=== PATIENT | male | born 1975 | race Two or more races ===

== ENCOUNTER 2022-09-14 11:04 | Outpatient (REF) | payer MEDICAID, SELFPAY ==
[2022-09-14 15:31] LABS: Syphilis Screen Nonreactive (Nonreactive)
[2022-09-14 15:33] LABS: Alanine Aminotransferase 47 U/L (0-40); Albumin Level 4.3 g/dL (3.5-5.0); Alkaline Phosphatase 113 U/L (39-117); Anion Gap 11 (12-20); Aspartate Amino Transferase 47 U/L (5-37); Bilirubin Total 0.6 mg/dL (0.0-1.0); Blood Urea Nitrogen 21 mg/dL (9-16); Calcium 9.6 mg/dL (8.4-10.2); Carbon Dioxide 29 mmol/L (22-29); Chloride 102 mmol/L (96-108); Cholesterol 139 mg/dL; Estimated Glomerular Filt Rate > 60; Glucose Random 100 mg/dL (60-115); HDL Cholesterol 43 mg/dL; LDL Cholesterol Calculated 79 mg/dl; Potassium 3.6 mmol/L (3.3-5.1); Sodium 138 mmol/L (135-145); TSH reflex Free T4 1.51 uIU/mL (0.32-4.0); Triglycerides 85 mg/dL; Vitamin D 25-OH Total 40.9 ng/mL (>30)
[2022-09-15 13:43] LABS: HCV Log PCR 6.38 Log IU/mL (NOT DETECTED)
[2022-09-17 08:42] LABS: HIV AB/AG Nonreactive (Nonreactive); HIV Num 1 0.04 S/CO (0.00-0.99)
[2022-09-17 16:28] LABS: TS Negative Control Passed; TS Panel A 0; TS Panel B 0; TS Positive Control Passed; TSpotTB Negative (Negative)
[2022-09-18 13:39] LABS: Alpha Fetoprotein 2.6 ng/mL (<6.1)
== END 2022-09-14 11:05 | disposition home or self-care (01) ==
LOC: HO.HHCL 11:04
PROVIDERS: Visit Provider Internal Medicine
DX: Z11.4 Encounter for screening for human immunodeficiency virus [HIV] (principal); B18.2 Chronic viral hepatitis C; F11.20 Opioid dependence, uncomplicated; I10 Essential (primary) hypertension; K21.9 Gastro-esophageal reflux disease without esophagitis
CPT/HCPCS: 36415; 80053; 80061; 82105; 82306; 84443; 86481; 86735; 86762; 86765; 86780; 87389; 87522

== ENCOUNTER 2022-09-20 11:05 | Outpatient (REF) | payer MEDICAID, SELFPAY ==
[2022-09-20 13:34] LABS: MANUAL DIFF FLAG NO
[2022-09-20 13:54] LABS: Basophils Percent Auto 0.7 % (0-2); Eosinophils Absolute Auto 0.1 X10*3/uL (0.0-0.4); Eosinophils Percent Auto 1.1 % (0-4); Hematocrit 41.9 % (42.0-52.0); Hemoglobin 13.5 g/dl (14.0-18.0); Imm Gran Abs Auto 0.02 X10*3/uL (0.00-0.03); Imm Gran Pct Auto 0.3 % (0.0-0.4); Lymphocytes Absolute Auto 2.4 X10*3/uL (1.2-4.9); Lymphocytes Percent Auto 39.3 % (20-40); Mean Corpuscular HGB Conc 32.2 g/dl (31.0-36.0); Mean Corpuscular Hemoglobin 26.7 pg (27.0-33.0); Mean Corpuscular Volume 82.8 fL (80.0-98.0); Mean Platelet Volume 9.6 fL (9.4-12.4); Monocytes Absolute Auto 0.8 X10*3/uL (0.1-1.2); Monocytes Percent Auto 13.5 % (2-11); Neutrophils Absolute Auto 2.8 x10*3/uL (2.0-8.3); Neutrophils Percent Auto 45.1 % (45-73); Platelet Count 334 X10*3/uL (160-400); Red Blood Count 5.06 X10*6/uL (4.60-5.80); Red Cell Distribution Width 13.3 % (11.0-16.0); White Blood Count 6.1 X10*3/uL (4.8-10.8)
[2022-09-20 13:56] LABS: Prothrombin Time 11.9 SEC (11.1-13.3)
[2022-09-27 15:03] LABS: FIB-ALT 45 U/L (9-46); FIB-Alpha-2-Macroglobulin 345 mg/dL (106-279); FIB-Apolipoprotein A1 133 mg/dL (94-176); FIB-GGT 55 U/L (3-95); FIB-Haptoglobin 178 mg/dL (43-212); FIB-Total Bilirubin 0.5 mg/dL (0.2-1.2); Liver Fibrosis Stage F2; Nec Inflam Act Grade A1; Nec Inflam Act Score 0.31
== END 2022-09-20 11:06 | disposition home or self-care (01) ==
LOC: HO.HHCL 11:05
PROVIDERS: Visit Provider Internal Medicine
DX: B18.2 Chronic viral hepatitis C (principal)
CPT/HCPCS: 36415; 81596; 85025; 85610

== ENCOUNTER 2022-11-30 12:20 | Outpatient (REF) | payer MEDICAID, SELFPAY ==
[2022-11-30 14:51] LABS: Anion Gap 16 (12-20); Blood Urea Nitrogen 19 mg/dL (9-16); Calcium 9.8 mg/dL (8.4-10.2); Carbon Dioxide 25 mmol/L (22-29); Chloride 102 mmol/L (96-108); Estimated Glomerular Filt Rate > 60; Glucose Random 86 mg/dL (60-115); Potassium 4.4 mmol/L (3.3-5.1); Sodium 139 mmol/L (135-145)
== END 2022-11-30 12:21 | disposition home or self-care (01) ==
LOC: HO.HHCL 12:20
PROVIDERS: Visit Provider Internal Medicine
DX: I10 Essential (primary) hypertension (principal)
CPT/HCPCS: 36415; 80048

== ENCOUNTER 2023-04-12 08:49 | Outpatient (REF) | payer MEDICAID, SELFPAY ==
[2023-04-12 11:27] LABS: Alanine Aminotransferase 23 U/L (0-40); Albumin Level 4.3 g/dL (3.5-5.0); Alkaline Phosphatase 95 U/L (39-117); Aspartate Amino Transferase 27 U/L (5-37); Bilirubin Direct < 0.2 mg/dL (0.0-0.5); Bilirubin Total 0.2 mg/dL (0.0-1.0); Total Protein 7.9 g/dL (6.5-8.0)
[2023-04-15 16:04] LABS: HCV Log PCR <1.18 NOT DETECTED Log IU/mL (NOT DETECTED); HepC Viral Load <15 NOT DETECTED IU/mL (NOT DETECTED)
== END 2023-04-12 08:50 | disposition home or self-care (01) ==
LOC: HO.HHCL 08:49
PROVIDERS: Visit Provider Family Medicine
DX: B18.2 Chronic viral hepatitis C (principal)
CPT/HCPCS: 36415; 80076; 87522

== ENCOUNTER 2023-04-26 09:22 | Outpatient (REF) | payer MEDICAID, SELFPAY ==
[2023-04-26 12:04] LABS: Anion Gap 13 (12-20); Blood Urea Nitrogen 23 mg/dL (9-16); Calcium 9.6 mg/dL (8.4-10.2); Carbon Dioxide 29 mmol/L (22-29); Chloride 101 mmol/L (96-108); Estimated Glomerular Filt Rate > 60; Glucose Random 135 mg/dL (60-115); Potassium 4.1 mmol/L (3.3-5.1); Sodium 139 mmol/L (135-145)
[2023-04-26 12:23] LABS: TSH reflex Free T4 1.33 uIU/mL (0.32-4.0)
[2023-05-01 14:34] LABS: Testosterone, Free 76.3 pg/mL (35.0-155.0); Testosterone, Total 372 ng/dL (250-1100)
== END 2023-04-26 09:23 | disposition home or self-care (01) ==
LOC: HO.HHCL 09:22
PROVIDERS: Visit Provider Internal Medicine
DX: I10 Essential (primary) hypertension (principal); N52.9 Male erectile dysfunction, unspecified
CPT/HCPCS: 36415; 80048; 84402; 84403; 84443

== ENCOUNTER 2023-10-11 19:20 | Emergency (ER) | payer MEDICAID, SELFPAY ==
--- NOTE | 2023-10-11 | ECG_ITS ---
Test Reason : TACHYCARDIA Blood Pressure : / mmHG Vent. Rate : 113 BPM Atrial Rate : 113 BPM P-R Int : 180 ms QRS Dur : 094 ms QT Int : 328 ms P-R-T Axes : 043 -16 037 degrees QTc Int : 449 ms Sinus tachycardia Minimal voltage criteria for LVH, may be normal variant ( R in aVL ) Borderline ECG When compared with ECG of 14-APR-2019 15:44, Vent. rate has increased BY 63 BPM T wave inversion no longer evident in Inferior leads Referred By: Generic ED Physician Electronically Signed By:JOSESITO MACEDO
--- NOTE | ~2023-10-11 | XR_ITS ---
EXAMINATION: XR CHEST CLINICAL INFORMATION: Shortness of breath. COMPARISON: Chest radiograph dated 11/11/2014. TECHNIQUE: Frontal view of the chest was obtained. FINDINGS: The heart is normal in size. The lungs are clear. There is no pleural effusion or pneumothorax. No acute osseous abnormality. XR/XR chest 1V IMPRESSION: No acute cardiopulmonary disease.
[2023-10-11 19:24] VITALS: BP 158/78; PULSE 125
[2023-10-11 19:28] VITALS: BP 144/94; PULSE 125; RESP 18; TEMP 36.1; O2SAT 93; BMI 35.3
[2023-10-11] MEDS: Ibuprofen 600 MG TABLET PO (20:10)
--- NOTE | 2023-10-11 20:12 | ED_ITS ---
HPI - Overdose General Chief Complaint: Overdose Stated Complaint: OD on cocaine/fentanyl, 8mg narcan given Time Seen by Provider: 10/11/23 20:05 Source: patient, EMS, RN notes reviewed and old records reviewed Mode of arrival: EMS History of Present Illness ED Provider: Nikole Hylton PA-C HPI Narrative: 48 year old male with PMHx substance abuse presenting to the ED via EMS s/p accidental OD on fentanyl and cocaine. Admits to snorting fentanyl, 1 bag. Patient was found unresponsive on [employer] [place] by [employer], given 8 mg of Narcan with positive result. Patient states he relapsed, has been clean for 2 years. Denies suicidal ideations. Denies injury/trauma or fall, headache. Reports bilateral foot pain and SOB. MD complaint: accidental overdose Related Data Allergies Allergy/AdvReac Type Severity Reaction Status Date / Time No Known Allergies Allergy Unverified 10/11/23 19:30 [No Known Allergies*] Review of Systems Review of Systems: Constitutional: No Fever, No Chills,No Fatigue, No Malaise Cardiovascular: No Chest Pain, + SOB Respiratory: No Cough, No Sputum, No Dyspnea Gastrointestinal: + Nausea, No Vomiting, No Diarrhea, No Constipation, No Abdominal pain Genitourinary: No Dysuria, No Hematuria, No Flank Pain Musculoskeletal: +joint pain, No Myalgias, No Joint Swelling Skin: No Skin Lesions, No rash Neuro: No Weakness, No Headache Psych: No Anxiety/Panic, No Depression, No SI/HI/AH/VH, No Social Issues Yes all other systems are reviewed and are negative Constitutional: Constitutional: Reports as per [facility] Past Medical History Attestation statement: The following information was validated with the patient. Source: old records reviewed Social History Social History Smoked in Last 30 Days: No Use of substances other than those prescribed or required for medical reasons: Yes Substance Use Type: Crack/Cocaine and Other Substance Use Type Other:: fentanyl Advance Directives: No Advance Directives Information Provided: No Physical Exam Vital Signs: Vital Signs: Last Vital Signs Temp 97.0 F 10/11/23 19:28 Pulse 125 H 10/11/23 19:28 Resp 18 10/11/23 19:28 BP 144/94 H 10/11/23 19:28 Pulse Ox 93 10/11/23 19:28 O2 Del Method Room Air 10/11/23 19:28 BMI result Body Mass Index 35.3 Const: General: cooperative, healthy appearing and no acute distress Orientation/consciousness: patient oriented x3 Limitations: no limitations HEENT: Head: Yes normal to inspection and Yes atraumatic Ears: hearing grossly normal bilaterally General nose exam: Normal external nose present Face and sinus: Yes normal facial exam Eyes: General: appearance normal, both eyes and all related structures EOM: EOMs intact bilaterally Neck: Neck: Yes normal visual inspection and Yes no meningeal signs Resp: Effort & Inspection: normal respiratory effort, no respiratory distress and no stridor Auscultation: clear to auscultation bilaterally, no rales, no rhonchi and no wheezes Cardio: Rate: regular rate Heart sounds: S1 normal heart sound present and S2 normal heart sound present GI: Inspection: Yes normal to inspection Palpation (GI): Soft to palpation, nontender, no guarding and not rigid Skin: Rashes: no rashes Wounds: no wounds Neuro: General: patient oriented x3, tone normal, moves all extremities, no meningeal signs, no focal motor deficits and CN's II-XI intact bilaterally Cranial nerves: Yes CN's II-XII intact bilaterally Extrem: Other: b/l feet w/o deformity, no erythema/ecchymosis. NV intact General: Yes normal to inspection Psych: Thought content: suicidality and no homicidality Course Course Course Narrative: -2100-ED care transferred to [facility] pending tox screen, CXR, and observation Reevaluation(s) Reevaluation #1: Urine toxicology positive for fentanyl and cocaine. Chest x-ray no acute cardiopulmonary disease. Patient will be placed into observation to allow more time to be evaluated by recovery. Patient has been ambulatory around the department without difficulty. Feeling well. He is interested in detox/recovery. Time: 23:21 Medications Administered Discontinued Medications Generic Name Dose Route Start Last Admin Trade Name Freq PRN Reason Stop Dose Admin Ibuprofen 600 mg 10/11/23 19:51 10/11/23 20:10 Ibuprofen 600 Mg Tablet PO 10/11/23 19:52 600 mg ONCE ONE Administration Ondansetron HCl 4 mg 10/11/23 20:11 10/11/23 21:28 Ondansetron Odt 4 Mg Tab.Rapdis TRANSLINGU 10/11/23 20:12 4 mg ONCE ONE Administration Medical Decision Making Medical Decision Making MDM Narrative: 48 year old male with PMHx substance abuse presenting to the ED via EMS s/p acci dental OD on fentanyl and cocaine. On exam tachycardic, NAD, lethargic however awake/arousable, emesis bag in hand, no evidence of trauma. Bilateral foot exam benign. Concern for accidental overdose. Low suspicion for ICH. No evidence of infection. Low suspicion for pulmonary edema Plan: EKG, CXR, ERWIN, observe and re-evaluate for possible relapse/clinical sobriety, addiction medicine consult for SUDE Please refer to course for remaining clinical decision making, interpretation of labs/imaging results, and discussions with consultants and/or family members. Differential Diagnosis Differential Diagnoses: The differential diagnosis associated with the presentation includes As above Consult Healthcare Provider Management of the patient was discussed with: Behavioral Health Provider Lab Data [facility] Lab Attestation statement: I reviewed the patient's lab results. Labs: Lab Results 10/11/23 Range/Units 21:24 Urine Opiates Screen Not Detected (Not Detect) Ur Buprenorphine Scrn Not Detected (Not Detect) ng/mL Ur Oxycodone Screen Not Detected (Not Detect) ng/mL Urine Methadone Screen Not Detected (Not Detect) ng/mL Urine Fentanyl Screen POSITIVE H (Not Detect) Ur Barbiturates Screen Not Detected (Not Detect) Ur Phencyclidine Scrn Not Detected (Not Detect) Ur Amphetamines Screen Not Detected (Not Detect) U Benzodiazepines Scrn Not Detected (Not Detect) Urine Cocaine Screen POSITIVE H (Not Detect) U Marijuana (THC) Screen Not Detected (Not Detect) Independent Interpretation I performed an independent interpretation of an: EKG (My interpretation EKG sinus tachycardia rate of 113. W[place] interval 180. QTC 449. No STEMI) Radiology Impression Discussion of test interpretation with radiology: I have reviewed the radiologist's reading. Independent Historian Clinical information obtained from an independent historian. History obtained from or confirmed by: EMS External Record Review External record reviewed: Inpatient record, Office record, Outpatient record, Prior outpatient labs, Prior outpatient radiology, Primary care record and Outside ED record Tests considered The following testing was considered but not selected: As above Social Determinants Patient?s care significantly limited by Social Determinants of Health including: Low income and Alcoholism and drug addiction in family Discharge Plan Discharge Clinical Impression: Drug overdose Print Language: Grenadian
[2023-10-11] MEDS: Ondansetron ODT 4 MG TAB.RAPDIS TRANSLINGU (21:28)
[2023-10-11 21:40] LABS: Amphetamine Screen Urine Not Detected (Not Detect); Barbiturates, Urine Not Detected (Not Detect); Benzodiazepines Screen Urine Not Detected (Not Detect); Buprenorphine Scr Not Detected (Not Detect); Cannabinoid Screen Urine Not Detected (Not Detect); Cocaine Screen Urine POSITIVE (Not Detect); Fentanyl, urine POSITIVE (Not Detect); Methadone Screen, Urine Not Detected (Not Detect); Opiate Screen Urine Not Detected (Not Detect); Oxycodone Screen Urine Not Detected (Not Detect); Phencyclidine Screen Urine Not Detected (Not Detect)
--- NOTE | 2023-10-12 00:01 | PC.NURSE ---
Pt laying in stretcher with eyes closed, respirations even and unlabored without distress noted.
[2023-10-12 03:08] VITALS: BP 123/81; PULSE 91; RESP 17; O2SAT 100
[2023-10-12 06:49] VITALS: BP 122/77; PULSE 79; RESP 14; TEMP 36.2; O2SAT 98
--- NOTE | 2023-10-12 06:51 | MHC.EDTECH ---
belong[facility] in [place]
[2023-10-12] MEDS: Naloxone HCl Nasal TAKE HOME 4 MG SPRAY 8 MG NOSTRILALT (07:25)
[2023-10-12 07:28] VITALS: BP 122/77; PULSE 79; RESP 14; TEMP 36.2; O2SAT 98
== END 2023-10-12 07:29 | disposition home or self-care (01) ==
PROVIDERS: Physician Assistant; Emergency Provider Emergency Medicine
DX: T43.691A Poisoning by other psychostimulants, accidental (unintentional), initial encounter (principal); T40.5X1A Poisoning by cocaine, accidental (unintentional), initial encounter; R40.4 Transient alteration of awareness; Y92.811 Bus as the place of occurrence of the external cause; F19.10 Other psychoactive substance abuse, uncomplicated; R06.02 Shortness of breath; R00.0 Tachycardia, unspecified
CPT/HCPCS: 71045; 80307; 93005; 99285

== ENCOUNTER 2023-11-14 15:11 | Inpatient (IN) | payer MEDICAID, SELFPAY ==
--- NOTE | 2023-11-10 15:25 | ECG_ITS ---
Test Reason : CP Blood Pressure : / mmHG Vent. Rate : 153 BPM Atrial Rate : 153 BPM P-R Int : 126 ms QRS Dur : 078 ms QT Int : 250 ms P-R-T Axes : 117 -01 064 degrees QTc Int : 399 ms Sinus tachycardia Otherwise normal ECG When compared with ECG of 14-NOV-2023 15:18, Sinus rhythm has replaced Wide QRS tachycardia Referred By: Yobany Rider Electronically Signed By:JOSESITO MACEDO
[2023-11-14] VITALS (12 sets, daily range): BP systolic 110–142; BP diastolic 56–84; PULSE 94–160; RESP 14–46; TEMP 36.8–37.4; O2SAT 90–99; BMI 33.6; BMI 34.1
--- NOTE | 2023-11-14 | ECG_ITS ---
Test Reason : REPEAT EKG RAPID HEART BEAT Blood Pressure : / mmHG Vent. Rate : 104 BPM Atrial Rate : 104 BPM P-R Int : 184 ms QRS Dur : 096 ms QT Int : 342 ms P-R-T Axes : 060 -05 024 degrees QTc Int : 449 ms Sinus tachycardia Otherwise normal ECG When compared with ECG of 14-NOV-2023 15:25, Heart rate has decreased Referred By: Isauro Herrera Electronically Signed By:JOSESITO MACEDO
--- NOTE | ~2023-11-14 | XR_ITS ---
EXAMINATION: XR CHEST CLINICAL INFORMATION: Tachypnea and tachycardia. COMPARISON: Chest x-ray 10/11/2023 TECHNIQUE: Frontal view of the chest was obtained. FINDINGS: No significant abnormality is noted involving the heart, lungs, mediastinum, bony thorax or soft tissues. XR/XR chest 1V IMPRESSION: Unremarkable chest examination. Electronically signed by: Teja Molina MD 11/14/2023 08:54 PM EDT
--- NOTE | ~2023-11-14 | CT_ITS ---
EXAMINATION: CT HEAD WITHOUT CONTRAST CLINICAL INFORMATION: Fall. COMPARISON: Head CT report dated 11/11/2014. TECHNIQUE: Contiguous axial imaging was performed from the skullbase to vertex without intravenous administration of contrast. Limited study with motion artifacts. This CT examination was performed using dose optimization techniques as appropriate, variously including the following: *Automated exposure control *Adjustment of mA and/or kV according to patient size (this includes techniques or standardized protocols for targeted exams where dose is matched to indication/reason for exam; i.e. extremities or head) *Use of iterative reconstruction technique DLP: 1341 mGy-cm. FINDINGS: There is no evidence of acute intracranial hemorrhage or territorial infarction. No abnormal mass effect or midline shift is seen. [place] to white matter differentiation is well preserved. No extra-axial fluid collections are identified. The ventricles are normal in size. There is no abnormal attenuation within the brain parenchyma. The osseous structures and soft tissues are normal. The mastoid air cells are well aerated. Mild ethmoid sinus mucosal thickening noted. CT/CT head/brain wo IV con IMPRESSION: Limited study with motion artifacts. Otherwise, no acute intracranial hemorrhage or territorial infarction. Electronically signed by: Mike Jurado MD 11/14/2023 05:51 PM EDT
[2023-11-14] MEDS: 0.9 % Sodium Chloride 1,000 ML 999 ML IV ×2 (15:15→17:19)
--- NOTE | 2023-11-14 15:19 | ECG_ITS ---
Test Reason : tachy Blood Pressure : / mmHG Vent. Rate : 158 BPM Atrial Rate : 000 BPM P-R Int : 000 ms QRS Dur : 152 ms QT Int : 346 ms P-R-T Axes : 000 -24 108 degrees QTc Int : 561 ms Wide QRS tachycardia with occasional Premature ventricular complexes Left bundle branch block Abnormal ECG When compared with ECG of 11-OCT-2023 19:43, Wide QRS tachycardia has replaced Sinus rhythm Referred By: Saray Rojas Electronically Signed By:JOSESITO MACEDO
[2023-11-14] MEDS: Adenosine 6 MG/2 ML VIAL IVPUSH (15:26)
[2023-11-14] MEDS: Adenosine 6 MG/2 ML VIAL 12 MG IVPUSH (15:28)
[2023-11-14] MEDS: LORazepam 2 MG/ML VIAL IVPUSH ×2 (15:31→15:46)
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
[2023-11-14 15:36] LABS: Glucose, Whole Blood 207 mg/dL (60-115)
--- NOTE | 2023-11-14 15:48 | PC.NURSE ---
oxygen 2 LNC started at as oxygen was 90 s on room air. HR was 152 and with the 2LNC is was 91 percent.
[2023-11-14 15:49] LABS: MANUAL DIFF FLAG NO
[2023-11-14 15:55] LABS: Basophils Percent Auto 0.4 % (0-2); Eosinophils Percent Auto 0.4 % (0-4); Hematocrit 38.4 % (42.0-52.0); Hemoglobin 12.5 g/dl (14.0-18.0); Imm Gran Abs Auto 0.17 X10*3/uL (0.00-0.03); Imm Gran Pct Auto 2.5 % (0.0-0.4); Lymphocytes Absolute Auto 0.8 X10*3/uL (1.2-4.9); Lymphocytes Percent Auto 12.6 % (20-40); Mean Corpuscular HGB Conc 32.6 g/dl (31.0-36.0); Mean Corpuscular Hemoglobin 27.5 pg (27.0-33.0); Mean Corpuscular Volume 84.6 fL (80.0-98.0); Mean Platelet Volume 8.8 fL (9.4-12.4); Monocytes Absolute Auto 0.2 X10*3/uL (0.1-1.2); Monocytes Percent Auto 3.4 % (2-11); Neutrophils Absolute Auto 5.4 x10*3/uL (2.0-8.3); Neutrophils Percent Auto 80.7 % (45-73); Platelet Count 338 X10*3/uL (160-400); Red Blood Count 4.54 X10*6/uL (4.60-5.80); Red Cell Distribution Width 14.5 % (11.0-16.0); White Blood Count 6.7 X10*3/uL (4.8-10.8)
--- NOTE | 2023-11-14 16:08 | PC.NURSE ---
patient came in via ems awake/alert and speaking with staff, per ems [place] using excessive crack/cocaine, pt is denying si/hi. upon arrival pt hr ranged from 130-190s and looked to be in svt, providers were notified, IV started, ekg performed, vagal maneuvers were attempted x2, pads placed on patients chest, nc applied, IVF started per order and pt given 2 separate doses of adenosine. pt then given 2 separate doses of ativan. capnography applied- pt changed over from NC to 8L oxymask. pt sleeping but easily arousable. security notified and belongings were taken to [place]. charge was notified about pt being found on bridge due to crack use and but hes denying si/hi. pt continues to be tachy in 130s, BP wnl, call herrera within reach, will continue with plan of care.
[2023-11-14 16:15] LABS: B Type Natriuretic Peptide 29 pg/mL (<100)
[2023-11-14 16:18] LABS: Alanine Aminotransferase 27 U/L (0-40); Albumin Level 3.9 g/dL (3.5-5.0); Alkaline Phosphatase 90 U/L (39-117); Anion Gap 22 (12-20); Aspartate Amino Transferase 27 U/L (5-37); Bilirubin Total 0.2 mg/dL (0.0-1.0); Blood Urea Nitrogen 18 mg/dL (9-16); Calcium 9.7 mg/dL (8.4-10.2); Carbon Dioxide 15 mmol/L (22-29); Chloride 108 mmol/L (96-108); Creatinine Clr Calc Pharmacy 44.6; Estimated Glomerular Filt Rate 35; Glucose Random 211 mg/dL (60-115); Magnesium 3.9 mg/dL (1.6-2.6); Potassium 4.1 mmol/L (3.3-5.1); Sodium 141 mmol/L (135-145); Troponin-I High Sensitivity 36.2 ng/L (<3.5-35.0)
--- NOTE | 2023-11-14 17:22 | PC.NURSE ---
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
[2023-11-14 18:13] LABS: Appearance Urine Clear; Color Urine Yellow; Glucose Urine UA Negative (Negative); Leukocyte Esterase Urine Negative (Negative); Nitrite Urine Negative (Negative); PH 5.5 (5.0-9.0); Specific Gravity - Urine 1.015 (1.005-1.025); UMIC TRIGGER UACC YES; Urine Blood Small (1+) (Negative); Urine Ketones Negative (Negative); Urine Protein 100 (2+) mg/dL (Neg-Trace)
[2023-11-14 19:39] LABS: VBG Base Excess -2.1 mmol/L; VBG HCO3 22 mmol/L (22-26); VBG pCO2 38 mmHg; VBG pH 7.37 (7.32-7.43); VBG pO2 199 mmHg
[2023-11-14 19:41] LABS: Venous Blood Gas Refer to POC result
[2023-11-14 19:48] LABS: Troponin-I High Sensitivity 291.2 ng/L (<3.5-35.0)
--- NOTE | 2023-11-14 20:09 | PHA.MEDREC ---
Addendum entered by Neva Mas RPh 11/14/23 20:22: Reviewed by [facility] Original Note: Pharmacy Consult ? Medication Reconciliation Pharmacy has completed the medication reconciliation. Patient is not aware enough to be able to confirm his medication. I utilized pharmacy claims. The only meds I did not add were Nifedipine 30mg 1 tab daily that was filled 07/31/23 for 90 days and Loratidine 10mg 1 tab daily that was filled 08/01/23 for 90 days.
[2023-11-14 20:15] LABS: Bacteria Urine None Seen (None Seen); RBC Urine 0-2 /HPF (0-2); Squamous Epithelial Cell Urine 0-2 /HPF (0-2); WBC Urine 0-5 /HPF (0-5)
--- NOTE | 2023-11-14 20:51 | PC.NURSE ---
pt/inr drawn
[2023-11-14 21:03] LABS: Prothrombin Time 11.3 SEC (10.9-12.4)
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
[2023-11-14] MEDS: dilTIAZem HCL 50 MG/10 ML VIAL IVPUSH (21:07)
--- NOTE | 2023-11-14 21:08 | PC.NURSE ---
this nurse contacted hospitalist as pts hr was wnl about giving the cardizem, hospitalist wanted the patient to have the IV cardizem and changed the order for a lesser dose. pt was given the medication per new orders
[2023-11-14] MEDS: Heparin Sodium,Porcine/1/2NS 25,000 UNIT/250 ML IV.SOLN 10 UNIT IVCONT (21:11)
[2023-11-14 21:16] LABS: Amphetamine Screen Urine Not Detected (Not Detect); Barbiturates, Urine Not Detected (Not Detect); Benzodiazepines Screen Urine Not Detected (Not Detect); Buprenorphine Scr Not Detected (Not Detect); Cannabinoid Screen Urine Not Detected (Not Detect); Cocaine Screen Urine POSITIVE (Not Detect); Fentanyl, urine Not Detected (Not Detect); Methadone Screen, Urine Not Detected (Not Detect); Opiate Screen Urine Not Detected (Not Detect); Oxycodone Screen Urine Not Detected (Not Detect); Phencyclidine Screen Urine Not Detected (Not Detect)
[2023-11-14] MEDS: Lactated Ringers 1,000 ML 100 ML IVCONT (23:35)
--- NOTE | 2023-11-14 23:43 | PC.NURSE ---
Assumed care f pt at 2300, pt easily arousable, alert and oriented, fatigued, states feels like crap . Heparin running through IV L-AC, #20 IV placed in R-AC, LR started at 100ml/hr.
[2023-11-15] VITALS (9 sets, daily range): BP systolic 134–190; BP diastolic 67–110; PULSE 80–99; RESP 15–20; TEMP 36.5–37.4; O2SAT 96–100
[2023-11-15] MEDS: Flu Vacc TS2024-25(6mos up)/PF 0.5 ML SYRINGE IM (03:19)
[2023-11-15 03:49] LABS: PTT Heparin Drip 40.9 SEC (53-77.9)
[2023-11-15] MEDS: Heparin Sodium,Porcine 5,000 UNIT/ML VIAL 3600 UNIT IVPUSH (04:16)
[2023-11-15 06:52] LABS: Hematocrit 40.4 % (42.0-52.0); Mean Corpuscular HGB Conc 32.2 g/dl (31.0-36.0); Mean Corpuscular Hemoglobin 27.3 pg (27.0-33.0); Mean Corpuscular Volume 84.7 fL (80.0-98.0); Mean Platelet Volume 9.7 fL (9.4-12.4); Platelet Count 297 X10*3/uL (160-400); Red Blood Count 4.77 X10*6/uL (4.60-5.80); Red Cell Distribution Width 14.9 % (11.0-16.0); White Blood Count 10.2 X10*3/uL (4.8-10.8)
--- NOTE | 2023-11-15 07:00 | CA_ITS ---
Transthoracic Echocardiogram Patient (Last, First, Middle): Sudhir Morales, Gender: Male Date of : 1975 Age: 48 Procedure Date: 11/15/2023 Procedure Type: Transthoracic Echocardiogram [place] [facility] [place] Height: 162.56 cm Weight: 89.81 kg BSA: 1.95 m2 Heart Rate: bpm BP: 180 / 110 mmHg Neon Glass Bender: CHACE Peoples MD: Isauro YATES Launching Pad Mechanic: Karthikeyan Snell MD Symptoms: Cocaine-induced NSTEMI Study Quality: Adequate ECG Rhythm: Sinus Conclusions: - 1. Normal LV ejection fraction 55-60% 2. Cardiac valvular Doppler within normal limits Findings Procedure Information Contrast agent, definity, is being given per protocol without apparent complications. Left Ventricle Normal left ventricular size, thickness, and systolic function. The visually estimated ejection fraction is between 55-60%. Spectral Doppler is indicative of an impaired relaxation filling pattern. E/E prime ratio is between 8 and 15 consistent with indeterminate filling pressures. Right Ventricle Normal right ventricular cavity size and systolic function. Atria The left atrium is normal in size. Interatrial shunt cannot be excluded. The right atrium was not well visualized. Aortic Valve Normal aortic valve structure and function. There is no aortic valve stenosis. There is no aortic valve regurgitation. Mitral Valve Normal mitral valve structure and function. There is trace mitral valve regurgitation. There is no mitral valve stenosis. Pulmonic Valve The pulmonic valve is likely normal. Tricuspid Valve Normal tricuspid valve structure. There is trace tricuspid valve regurgitation. The right ventricular systolic pressure is normal. The right ventricular systolic pressure is 27 mmHg. Normal right atrial pressure. There is no evidence of pulmonary hypertension. Great Vessels The aorta was not well visualized. The pulmonary artery was not well visualized. Venous The inferior vena cava is normal in size. Pericardium/Pleural The pericardium was not well visualized. Prior Study Comparison No prior study available for comparison. Measurements 2D Linear Measurements IVSd: 1.00 0.6-0.9/0.6-1.0 cm LVIDd: 4.50 3.9-5.3/4.2-5.9 cm LVIDd Index: 2.31 2.4-3.2/2.2-3.1 cm/m2 LVIDs: 2.92 2.0-3.6 cm LVPWd: 1.15 0.7-1.1 cm Ao Root: 3.20 2.1-3.5 cm LA Diam: 3.80 2.7-3.8/3.0-4.0 cm LAIDs Index: 1.95 1.5-2.3 cm/m2 LV Mass: 211.07 67-162/88-224 g LV Mass Index: 108.24 43-95/49-115 g/m2 LVOT Diam: 2.10 3.0+(-)1.3 cm 2D Systolic Function EF 4C: 56.50 >55% Mitral Valve MV Pk E: 0.73 MV PK A: 0.84 MV Decel Time: 296.00 E/A: 0.90 E'Lateral: 8.59 E'Medial: 7.94 E/E' Med: 9.20 E/E' Lat: 8.50 PHT: 87.00 MVA PHT: 2.53 Decel [place] Mix: 2.46 Aortic Valve AoV Pk Edy: 1.90 AoV Mn Edy: 1.15 AoV VTI: 0.29 AoV Pk Grad: 14.00 Aov Mn Grad: 7.00 CARLOS Cont.VTI: 2.72 LVOT LVOT Pk Edy: 1.29 LVOT Mn Edy: 0.99 LVOT VTI: 0.23 LVOT Pk Grad: 7.00 LVOT Mn Grad: 4.00 LVOT Diam: 2.10 LVOT Area: 3.46 Diastolic Function MV Pk E: 0.73 MV Pk A: 0.84 E/A: 0.90 E'Medial: 7.94 E/E' Med: 9.20 E' Laterial: 8.59 E/E' Lat: 8.50 Right Ventricle TAPSE (mm): 31.00 TVS' Edy: 15.00 Tricuspid Valve TR Pk Edy: 2.45 TR Pk Grad: 24.00 RA Press: 3.00 RVSP: 27.00 Great Vessels Aorta Ao Root-2D: 3.20 2.0-3.7 cm Pulmonary Valve PV Pk Edy: 1.41 Peak PV Grad: 8.00 Updated in Other Vendor System with Status of Final Karthikeyan Snell MD electronically signed on 11/15/2023 11:15:21 AM with status of Final
[2023-11-15 07:03] LABS: Prothrombin Time 11.7 SEC (10.9-12.4)
[2023-11-15 07:14] LABS: Anion Gap 15 (12-20); Blood Urea Nitrogen 19 mg/dL (9-16); Calcium 8.7 mg/dL (8.4-10.2); Carbon Dioxide 23 mmol/L (22-29); Chloride 107 mmol/L (96-108); Estimated Glomerular Filt Rate 27; Glucose Random 102 mg/dL (60-115); Magnesium 3.2 mg/dL (1.6-2.6); Potassium 3.6 mmol/L (3.3-5.1); Sodium 141 mmol/L (135-145)
[2023-11-15] MEDS: amLODIPine Besylate 5 MG TABLET PO (08:12)
[2023-11-15] MEDS: 0.9 % Sodium Chloride 1,000 ML 125 ML IVCONT ×2 (08:12→16:24)
[2023-11-15 08:38] LABS: Cholesterol 122 mg/dL (<200); HDL Cholesterol 40 mg/dL (>40); LDL Cholesterol Calculated 67 mg/dL (<100); Triglycerides 75 mg/dL (<150)
[2023-11-15 09:06] LABS: Troponin-I High Sensitivity 206.3 ng/L (<3.5-35.0)
[2023-11-15 09:11] LABS: Thyroid Stimulating Hormone 0.51 uIU/mL (0.32-4.0)
[2023-11-15 10:44] LABS: PTT Heparin Drip 117.2 SEC (53-77.9)
[2023-11-15] MEDS: Calcium Carbonate 750 MG TAB.CHEW PO (11:09)
[2023-11-15] MEDS: Aspirin Enteric Coated 81 MG TABLET.DR PO (11:09)
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
--- NOTE | 2023-11-15 13:05 | MHC.CM.PN ---
Pt lives alone, is independent, he said his PCP is Lara Headley at [facility]. Pt concerned about letting his family know that he is here, he said they will call the film flat inspector if they can't find him. CM gave him the land line telephone that is in the room to call them. DCP: home, self care. CM to follow and assist with DC plan.
--- NOTE | 2023-11-15 13:31 | HO.PM.IMPN ---
Subjective Subjective Date of Service: 11/15/23 Interval History: Being followed for cocaine induced tachycardia, elevated troponin, KATHYA with an anion gap metabolic acidosis. patient denies chest pain, no shortness of breath, complaining of heartburn, denies nausea ,vomiting diarrhea, no headache or dizziness. Review of Systems All other system reviewed and are negative Physical Exam Vital Signs: Vital Signs: Last Vital Signs Temp 97.8 F 11/15/23 11:11 Pulse 81 11/15/23 11:11 Resp 18 11/15/23 11:11 BP 190/100 H 11/15/23 11:23 Pulse Ox 96 11/15/23 11:11 O2 Del Method Room Air 11/15/23 11:11 O2 Flow Rate 2 11/15/23 00:21 BMI result Body Mass Index 34.1 Const: Other: General resting comfortably in no acute distress. Neck supple no JVD. CVS regular rate rhythm, Respiratory lungs clear to auscultation, no respiratory distress, no wheeze, no rhonchi. Gastrointestinal abdomen soft, non tender, bowel sounds audible, no guarding , no rigidity. Extremities no edema. Neuro non focal Skin no rash Objective Data Active Medications Acetaminophen (Acetaminophen 325 Mg Tablet) 650 mg PO Q6H PRN PRN Reason: Pain, Mild (Pain Scale 1-3), fever or headache Aspirin (Aspirin Enteric Coated 81 Mg Tablet.) 81 mg PO DAILY [facility] Last Admin: 11/15/23 11:09 Dose: 81 mg Documented By: MAXWELL Benzonatate (Benzonatate 100 Mg Capsule) 100 mg PO TID PRN PRN Reason: Cough Calcium Carbonate (Calcium Carbonate 750 Mg Tab.Chew) 750 mg PO Q4H PRN PRN Reason: Heartburn Last Admin: 11/15/23 11:09 Dose: 750 mg Documented By: MAXWELL Sodium Chloride (Ns) 1,000 mls @ 125 mls/hr IVCONT .Q8H [facility] Last Admin: 11/15/23 08:12 Dose: 125 mls/hr Documented By: MAXWELL Lorazepam (Lorazepam 2 Mg/Ml Vial) 0.5 mg IVPUSH Q4H PRN PRN Reason: Restlessness Magnesium Hydroxide (Milk Of Magnesia 30 Ml Oral.Susp) 30 ml PO DAILY PRN PRN Reason: Constipation Melatonin (Melatonin 3 Mg Tablet) 6 mg PO BEDTIME PRN PRN Reason: Insomnia Omeprazole (Omeprazole 20 Mg Capsule.Dr) 20 mg PO DAILY@0630 [facility] Ondansetron HCl (Ondansetron Hcl 4 Mg/2 Ml Vial) 4 mg IVPUSH Q8H PRN PRN Reason: Nausea and Vomiting Sodium Chloride (0.9 % Sodium Chloride Flush 3 Ml Syringe) 3 ml IVFLUSH QSHIFT SHARIF Last Admin: 11/15/23 08:16 Dose: Not Given Documented By: MAXWELL Non-Admin Reason: IV Running Verapamil HCl (Verapamil Hcl 120 Mg Tablet) 120 mg PO BID [facility]; Protocol Verapamil HCl (Verapamil Hcl 120 Mg Tablet) 120 mg PO ONCE ONE; Protocol Stop: 11/15/23 13:31 Labs 11/15/23 06:30 11/15/23 06:30 Labs: Laboratory Results - last 24 hr 11/14/23 11/14/23 11/14/23 15:32 15:44 17:58 MCV 84.6 MCH 27.5 MCHC 32.6 RDW 14.5 Plt Count 338 MPV 8.8 L Immature Gran % (Auto) 2.5 H Neut % (Auto) 80.7 H Lymph % (Auto) 12.6 L [place] % (Auto) 3.4 Eos % (Auto) 0.4 Baso % (Auto) 0.4 Lymph # (Auto) 0.8 L [place] # (Auto) 0.2 Eos # (Auto) 0.0 Baso # (Auto) 0.0 Abs Immat Gran (auto) 0.17 H Absolute Neuts (auto) 5.4 Absolute Nucleated RBC 0.000 Nucleated RBC % (auto) 0.0 PT INR aPTT Heparin Protocol Hold Blue Top VBG pH VBG pCO2 VBG pO2 VBG HCO3 VBG O2 Saturation VBG Base Excess Anion Gap 22 H Estim Creat Clear Calc 44.6 Estimated GFR 35 POC Glucose 207 H Random Glucose 211 H Calcium 9.7 Magnesium 3.9 H* Total Bilirubin 0.2 AST 27 ALT 27 Alkaline Phosphatase 90 Total Creatine Kinase 270 H Troponin I High Sens 36.2 H B-Natriuretic Peptide 29 Total Protein 7.0 Albumin 3.9 Triglycerides Cholesterol LDL Cholesterol, Calc HDL Cholesterol TSH Urine Color Yellow Urine Appearance Clear Urine pH 5.5 Ur Specific [place] 1.015 Urine Protein 100 (2+) H Urine Glucose (UA) Negative Urine Ketones Negative Urine Blood Small (1+) H Urine Nitrite Negative Ur Leukocyte Esterase Negative Urine RBC 0-2 Urine WBC 0-5 Ur Squamous Epith Cells 0-2 Urine Bacteria None Seen Hyaline Casts 3-5 Urine Opiates Screen Not Detected Ur Buprenorphine Scrn Not Detected Ur Oxycodone Screen Not Detected Urine Methadone Screen Not Detected Urine Fentanyl Screen Not Detected Ur Barbiturates Screen Not Detected Ur Phencyclidine Scrn Not Detected Ur Amphetamines Screen Not Detected U Benzodiazepines Scrn Not Detected Urine Cocaine Screen POSITIVE H U Marijuana (THC) Screen Not Detected 11/14/23 11/14/23 11/14/23 19:03 19:34 20:49 MCV MCH MCHC RDW Plt Count MPV Immature Gran % (Auto) Neut % (Auto) Lymph % (Auto) [place] % (Auto) Eos % (Auto) Baso % (Auto) Lymph # (Auto) [place] # (Auto) Eos # (Auto) Baso # (Auto) Abs Immat Gran (auto) Absolute Neuts (auto) Absolute Nucleated RBC Nucleated RBC % (auto) PT 11.3 INR 1.0 aPTT Heparin Protocol 24.0 L Hold Blue Top VBG pH 7.37 VBG pCO2 38 VBG pO2 199 VBG HCO3 22 VBG O2 Saturation 100.0 VBG Base Excess -2.1 Anion Gap Estim Creat Clear Calc Estimated GFR POC Glucose Random Glucose Calcium Magnesium Total Bilirubin AST ALT Alkaline Phosphatase Total Creatine Kinase Troponin I High Sens 291.2 H* D B-Natriuretic Peptide Total Protein Albumin Triglycerides Cholesterol LDL Cholesterol, Calc HDL Cholesterol TSH Urine Color Urine Appearance Urine pH Ur Specific [place] Urine Protein Urine Glucose (UA) Urine Ketones Urine Blood Urine Nitrite Ur Leukocyte Esterase Urine RBC Urine WBC Ur Squamous Epith Cells Urine Bacteria Hyaline Casts Urine Opiates Screen Ur Buprenorphine Scrn Ur Oxycodone Screen Urine Methadone Screen Urine Fentanyl Screen Ur Barbiturates Screen Ur Phencyclidine Scrn Ur Amphetamines Screen U Benzodiazepines Scrn Urine Cocaine Screen U Marijuana (THC) Screen 11/15/23 11/15/23 11/15/23 03:20 06:30 08:00 MCV 84.7 MCH 27.3 MCHC 32.2 RDW 14.9 Plt Count 297 MPV 9.7 Immature Gran % (Auto) Neut % (Auto) Lymph % (Auto) [place] % (Auto) Eos % (Auto) Baso % (Auto) Lymph # (Auto) [place] # (Auto) Eos # (Auto) Baso # (Auto) Abs Immat Gran (auto) Absolute Neuts (auto) Absolute Nucleated RBC 0.000 Nucleated RBC % (auto) 0.0 PT 11.7 INR 1.0 aPTT Heparin Protocol 40.9 L D Hold Blue Top VBG pH VBG pCO2 VBG pO2 VBG HCO3 VBG O2 Saturation VBG Base Excess Anion Gap 15 Estim Creat Clear Calc 36.0 Estimated GFR 27 POC Glucose Random Glucose 102 Calcium 8.7 D Magnesium 3.2 H Total Bilirubin AST ALT Alkaline Phosphatase Total Creatine Kinase 1628 H Troponin I High Sens 206.3 H* B-Natriuretic Peptide Total Protein Albumin Triglycerides 75 Cholesterol 122 LDL Cholesterol, Calc 67 HDL Cholesterol 40 L TSH 0.51 Urine Color Urine Appearance Urine pH Ur Specific [place] Urine Protein Urine Glucose (UA) Urine Ketones Urine Blood Urine Nitrite Ur Leukocyte Esterase Urine RBC Urine WBC Ur Squamous Epith Cells Urine Bacteria Hyaline Casts Urine Opiates Screen Ur Buprenorphine Scrn Ur Oxycodone Screen Urine Methadone Screen Urine Fentanyl Screen Ur Barbiturates Screen Ur Phencyclidine Scrn Ur Amphetamines Screen U Benzodiazepines Scrn Urine Cocaine Screen U Marijuana (THC) Screen 11/15/23 11/15/23 10:09 11:38 MCV MCH MCHC RDW Plt Count MPV Immature Gran % (Auto) Neut % (Auto) Lymph % (Auto) [place] % (Auto) Eos % (Auto) Baso % (Auto) Lymph # (Auto) [place] # (Auto) Eos # (Auto) Baso # (Auto) Abs Immat Gran (auto) Absolute Neuts (auto) Absolute Nucleated RBC Nucleated RBC % (auto) PT INR aPTT Heparin Protocol 117.2 H* D Hold Blue Top SEE NOTE VBG pH VBG pCO2 VBG pO2 VBG HCO3 VBG O2 Saturation VBG Base Excess Anion Gap Estim Creat Clear Calc Estimated GFR POC Glucose Random Glucose Calcium Magnesium Total Bilirubin AST ALT Alkaline Phosphatase Total Creatine Kinase Troponin I High Sens B-Natriuretic Peptide Total Protein Albumin Triglycerides Cholesterol LDL Cholesterol, Calc HDL Cholesterol TSH Urine Color Urine Appearance Urine pH Ur Specific [place] Urine Protein Urine Glucose (UA) Urine Ketones Urine Blood Urine Nitrite Ur Leukocyte Esterase Urine RBC Urine WBC Ur Squamous Epith Cells Urine Bacteria Hyaline Casts Urine Opiates Screen Ur Buprenorphine Scrn Ur Oxycodone Screen Urine Methadone Screen Urine Fentanyl Screen Ur Barbiturates Screen Ur Phencyclidine Scrn Ur Amphetamines Screen U Benzodiazepines Scrn Urine Cocaine Screen U Marijuana (THC) Screen Assessment and Plan (1) Elevated troponin: Status: Acute (2) Tachycardia: Status: Acute (3) Hypermagnesemia: Status: Acute (4) KATHYA (acute kidney injury): Status: Acute (5) Cocaine intoxication: Status: Acute Plan 48-year-old male with a PMH significant for?polysubstance use disorder and GERD who presents to the ED by EMS for evaluation of tachycardia in the setting of cocaine intoxication. Pt will be admitted to the hospital for treatment and further evaluation of cocaine-induced KATHYA and NSTEMI. Elevated troponin demand ischemia likely due to cocaine toxicity causing vasoconstriction and tachycardia Initial troponin 36.2 with repeat with delta of 291.2 trended down to 206 EKG without significant ischemic changes Case discussed with Cardiology they recommend to DC IV heparin drip , started on verapamil 2 reduced myocardial oxygen demand, aspirin stable LDL does not require statin Echocardiogram showed no wall motion abnormality,EF 55-60% Acute Tachycardia In the setting of cocaine intoxication SVT heart rate in 150s on arrival to ED,s/p adenosine 6 mg and 12 mg IV, Ativan 2 mg IV x2 doses Heart rate remained stable KATHYA In the setting of cocaine intoxication Creatinine 1.05 on 04/26/2023, creatinine bumped from 2.05 to 2.5 this morning Continue IV fluids Follow BMP, if no improvement in creatinine will consult Nephrology. Elevated CPK Mildly elevated, continue IV fluids follow labs. Acute hypo magnesemia likely due to KATHYA follow magnesium. Hypertension As per patient has history of hypertension currently not on antihypertensive will start verapamil BP remains elevated will add hydralazine avoid Silvestre/Arb due to KATHYA Cocaine use disorder Addiction medicine consult GERD PPI Full Code DVT Prophylaxis: SubQ Lovenox Pt will require continued inpatient hospitalization for treatment of cocaine induced KATHYA and tachycardia, and close monitoring of labs and cardiac function. Quality Stroke Does the patient have a stroke diagnosis?: No VTE Prior VTE?: No VTE Risk Level:: Medical - moderate - high VTE Device Contraindication: Treatment Not Indicated VTE Drug Contraindication: N/A - Med Ordered
[2023-11-15] MEDS: VerapamiL HCL 120 MG TABLET PO ×2 (13:38→20:21)
[2023-11-15] MEDS: Omeprazole 20 MG CAPSULE.DR PO (13:38)
--- NOTE | 2023-11-15 15:45 | MHC.RECOVRN ---
Met with Patient at bedside, patient initially stated he was not interested in talking. Once I explained what resources I have available he stated that his daughter was on her way up to his room and she didnt know he used drugs . He acknowledged interest in receiving recovery services, but asked I come back another time. Will relay to weekend covering RN to check back in with patient.
[2023-11-15] MEDS: Melatonin 3 MG TABLET 6 MG PO (20:21)
[2023-11-16] MEDS: 0.9 % Sodium Chloride Flush 3 ML SYRINGE IVFLUSH ×2 (00:09→07:36)
[2023-11-16] MEDS: 0.9 % Sodium Chloride 1,000 ML 125 ML IVCONT ×2 (02:37→10:50)
[2023-11-16 03:23] VITALS: BP 155/88; PULSE 81; RESP 15; TEMP 37; O2SAT 96
[2023-11-16] MEDS: Omeprazole 20 MG CAPSULE.DR PO (05:55)
[2023-11-16 07:32] LABS: Hematocrit 40.2 % (42.0-52.0); Hemoglobin 12.7 g/dl (14.0-18.0); Mean Corpuscular HGB Conc 31.6 g/dl (31.0-36.0); Mean Corpuscular Hemoglobin 26.7 pg (27.0-33.0); Mean Corpuscular Volume 84.6 fL (80.0-98.0); Mean Platelet Volume 9.4 fL (9.4-12.4); Platelet Count 274 X10*3/uL (160-400); Red Blood Count 4.75 X10*6/uL (4.60-5.80); Red Cell Distribution Width 15.2 % (11.0-16.0); White Blood Count 9.1 X10*3/uL (4.8-10.8)
[2023-11-16] MEDS: ondansetron HCL 4 MG/2 ML VIAL IVPUSH (07:34)
[2023-11-16 07:49] LABS: Anion Gap 15 (12-20); Blood Urea Nitrogen 14 mg/dL (9-16); Calcium 8.6 mg/dL (8.4-10.2); Carbon Dioxide 21 mmol/L (22-29); Chloride 107 mmol/L (96-108); Estimated Glomerular Filt Rate 25; Glucose Random 108 mg/dL (60-115); Magnesium 2.4 mg/dL (1.6-2.6); Potassium 3.6 mmol/L (3.3-5.1); Sodium 139 mmol/L (135-145)
[2023-11-16 08:00] VITALS: BP 145/76; PULSE 90; RESP 20; TEMP 36.9; O2SAT 96
[2023-11-16 08:20] VITALS: BP 140/74
[2023-11-16] MEDS: Aspirin Enteric Coated 81 MG TABLET.DR PO (08:20)
[2023-11-16] MEDS: VerapamiL HCL 120 MG TABLET PO (08:20)
--- NOTE | 2023-11-16 11:18 | MHC.RECOVRN ---
Met with pt in 377 after consult placed to Addiction Medicine for cocaine use.? Pt had presented to the ED via EMS due to erratic behavior following injection of cocaine.??? Upon evaluation, pt admitted for treatment of cocaine induced KATHYA and NSTEMI requiring IVF heparin and monitoring of lab and cardiac function.?? Pt laying in bed, awake, alert and oriented.?? Pt reports cocaine use but does not see it as ?a problem?.?? He was given resources to outpatient services but did not think he ?needed them?.?? T/W focused on education of harm reduction with pt. And provided him with [facility] contact information for future use.?? .Pt denies any other questions or concerns for t/w.? Will F/U tomorrow to inquire on F/U questions and to gather a more thorough history if pt. Agreeable.?
[2023-11-16 11:45] VITALS: BP 139/88; PULSE 85; RESP 18; TEMP 36.7; O2SAT 98
--- NOTE | 2023-11-16 13:09 | HO.PM.IMPN ---
Subjective Subjective Date of Service: 11/16/23 Interval History: Being followed for cocaine induced KATHYA, rhabdomyolysis, elevated troponin and SVT Patient offers no acute complaints denies chest pain, no palpitations, no abdominal pain, no nausea, no vomiting or diarrhea, denies lightheadedness, no dizziness, no fevers, no chills, urinating greater than 2 L in 24 hours, urine clear, no other acute issues overnight. Review of Systems All other system reviewed and negative. Physical Exam Vital Signs: Vital Signs: Last Vital Signs Temp 98.0 F 11/16/23 11:45 Pulse 85 11/16/23 11:45 Resp 18 11/16/23 11:45 BP 139/88 11/16/23 11:45 Pulse Ox 98 11/16/23 11:45 O2 Del Method Room Air 11/16/23 11:45 O2 Flow Rate 2 11/15/23 00:21 BMI result Body Mass Index 34.1 Const: Other: General resting comfortably, in no acute distress. Neck supple no JVD. CVS regular rate rhythm, Respiratory lungs clear to auscultation, no respiratory distress, no wheeze, no rhonchi. Gastrointestinal abdomen soft, non tender, bowel sounds audible, no guarding , no rigidity. Extremities no edema. Neuro non focal Skin bilateral knee and upper extremity abrasions Objective Data Active Medications Acetaminophen (Acetaminophen 325 Mg Tablet) 650 mg PO Q6H PRN PRN Reason: Pain, Mild (Pain Scale 1-3), fever or headache Aspirin (Aspirin Enteric Coated 81 Mg Tablet.) 81 mg PO DAILY [facility] Last Admin: 11/16/23 08:20 Dose: 81 mg Documented By: RICHARD Benzonatate (Benzonatate 100 Mg Capsule) 100 mg PO TID PRN PRN Reason: Cough Calcium Carbonate (Calcium Carbonate 750 Mg Tab.Chew) 750 mg PO Q4H PRN PRN Reason: Heartburn Last Admin: 11/15/23 11:09 Dose: 750 mg Documented By: MAXWELL Sodium Chloride (Ns) 1,000 mls @ 125 mls/hr IVCONT .Q8H [facility] Last Admin: 11/16/23 10:50 Dose: 125 mls/hr Documented By: RICHARD Lorazepam (Lorazepam 2 Mg/Ml Vial) 0.5 mg IVPUSH Q4H PRN PRN Reason: Restlessness Magnesium Hydroxide (Milk Of Magnesia 30 Ml Oral.Susp) 30 ml PO DAILY PRN PRN Reason: Constipation Melatonin (Melatonin 3 Mg Tablet) 6 mg PO BEDTIME PRN PRN Reason: Insomnia Last Admin: 11/15/23 20:21 Dose: 6 mg Documented By: VALDEZ Omeprazole (Omeprazole 20 Mg Capsule.Dr) 20 mg PO DAILY@0630 [facility] Last Admin: 11/16/23 05:55 Dose: 20 mg Documented By: VALDEZ Ondansetron HCl (Ondansetron Hcl 4 Mg/2 Ml Vial) 4 mg IVPUSH Q8H PRN PRN Reason: Nausea and Vomiting Last Admin: 11/16/23 07:34 Dose: 4 mg Documented By: RICHARD Sodium Chloride (0.9 % Sodium Chloride Flush 3 Ml Syringe) [facility] Last Admin: 11/16/23 07:36 Dose: 3 ml Documented By: RICHARD Verapamil HCl (Verapamil Hcl 120 Mg Tablet) 120 mg PO BID [facility]; Protocol Last Admin: 11/16/23 08:20 Dose: 120 mg Documented By: RICHARD Labs 11/16/23 06:32 11/16/23 06:32 Labs: Laboratory Results - last 24 hr 11/16/23 06:32 MCV 84.6 MCH 26.7 L MCHC 31.6 RDW 15.2 Plt Count 274 MPV 9.4 Absolute Nucleated RBC 0.000 Nucleated RBC % (auto) 0.0 Anion Gap 15 Estim Creat Clear Calc 33.0 Estimated GFR 25 Random Glucose 108 Calcium 8.6 Magnesium 2.4 Total Creatine Kinase 717 H Assessment and Plan (1) Elevated troponin: Status: Acute (2) Tachycardia: Status: Acute (3) Hypermagnesemia: Status: Acute (4) KATHYA (acute kidney injury): Status: Acute (5) Cocaine intoxication: Status: Acute Plan 48-year-old male with a PMH significant for?polysubstance use disorder and GERD who presents to the ED by EMS for evaluation of tachycardia in the setting of cocaine intoxication. Pt will be admitted to the hospital for treatment and further evaluation of cocaine-induced KATHYA and NSTEMI. Elevated troponin demand ischemia likely due to cocaine toxicity causing vasoconstriction and tachycardia No chest pain, no shortness of breath Initial troponin 36.2 with repeat with delta of 291.2 trended down to 206 EKG without significant ischemic changes Case discussed with Cardiology they recommend no IV heparin , started on verapamil 120mg bid, and aspirin, stable LDL does not require statin Echocardiogram showed no wall motion abnormality,EF 55-60% Acute Tachycardia In the setting of cocaine intoxication SVT heart rate in 150s on arrival to ED,s/p adenosine 6 mg and 12 mg IV, Ativan 2 mg IV x2 doses Heart rate stable now KATHYA In the setting of cocaine intoxication likely ATN Creatinine 1.05 on 04/26/2023, creatinine bumped from 2.05 to 2.5 > 2.7 making urine,ivf Follow BMP, consult Nephrology. Elevated CPK CPK improved to 717 likely due to cocaine. Acute hypermagnesemia likely due to KATHYA , resolved. Hypertension As per patient has history of hypertension currently not on antihypertensive , blood pressure improved continue verapamil , will add hydralazine if noted to have elevated blood pressure, avoid Silvestre/Arb due to KATHYA Cocaine use disorder Addiction medicine consult As needed Ativan. GERD PPI Full Code DVT Prophylaxis: SubQ Lovenox Pt will require continued inpatient hospitalization for treatment of cocaine induced KATHYA and tachycardia, and close monitoring of labs and cardiac function. Quality Stroke Does the patient have a stroke diagnosis?: No VTE Prior VTE?: No VTE Risk Level:: Medical - moderate - high VTE Device Contraindication: Treatment Not Indicated VTE Drug Contraindication: N/A - Med Ordered
[2023-11-16] MEDS: LORazepam 2 MG/ML VIAL 0.5 MG IVPUSH (14:02)
[2023-11-16 16:00] VITALS: BP 135/86; PULSE 82; RESP 18; TEMP 36.8; O2SAT 98
--- NOTE | 2023-11-16 16:11 | PC.NURSE ---
at 13:[address] Brown about patient wanting to leave AMA via [employer]. Provided contact primary nurse via [employer] @13:34 about coming to bedside to talk with patient about discharging AMA. @ 13:44 Dr Brown at beside to explain concerns about patient leaving AMA. Patient inquired about medication to calm down. Provider and nurse Reviewed MAR at patient bedside and nurse able to give PRN Ativan. See medication MAR for documentation. Patient also inquired about getting glass from security. Dr. Brown was able to follow up with security and patient received glasses at bedside.
[2023-11-16] MEDS: 0.9 % Sodium Chloride 1,000 ML 80 ML IVCONT (17:47)
[2023-11-16 20:00] VITALS: BP 158/96; PULSE 85; RESP 18; TEMP 37; O2SAT 96
--- NOTE | 2023-11-16 21:08 | PM.EVENT ---
Event Note Date of Service: 11/16/23 Event Note: Notified by nursing around 21:00 that patient wanted to leave AMA. Patient seen and evaluated in his room where he is alert and oriented x4. Patient states that he feels great and no longer thinks he needs hospitalization. Also reports he needs to go home to go with his girlfriend to a restorationism retreat tomorrow. Discussed with patient we would recommend continued hospitalization due to worsening kidney function that has yet to respond to IVF, as well as continued cardiac monitoring for cocaine induced tachycardia and elevated troponins. Patient is aware of risks of leaving that could include kidney failure with need for emergent dialysis or electrolyte disturbances that could result in cardiac arrest. Despite this awareness patient elected to leave AMA. Time Spent With Patient Time: Total time managing care of this patient today ____ minutes.
--- NOTE | 2023-11-16 22:12 | PC.NURSE ---
Patient left AMMD Chavo and [employer]cking [employer] Worker notified. AMA form signed.
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
== END 2023-11-16 21:22 | disposition left against medical advice (07) | DRG 816 ==
LOC: HO.ED 19:53 → HO.EDOVER 19:58 → HO.IMC 23:35
PROVIDERS: Internal Medicine; Physician Assistant; Physician Assistant Medical; Admitting Provider Student in an Organized Health Care Education/Training Program; Emergency Provider Emergency Medicine; PCP Internal Medicine; Visit Provider Hospitalist
DX: T40.5X1A Poisoning by cocaine, accidental (unintentional), initial encounter (principal); M62.82 Rhabdomyolysis; I24.89 Other forms of acute ischemic heart disease; N17.9 Acute kidney failure, unspecified; I47.10 Supraventricular tachycardia, unspecified; E83.41 Hypermagnesemia; K21.9 Gastro-esophageal reflux disease without esophagitis; F14.929 Cocaine use, unspecified with intoxication, unspecified; D64.9 Anemia, unspecified; F19.90 Other psychoactive substance use, unspecified, uncomplicated; I44.7 Left bundle-branch block, unspecified; I10 Essential (primary) hypertension; Z23 Encounter for immunization; Z87.891 Personal history of nicotine dependence; Z79.899 Other long term (current) drug therapy
CPT/HCPCS: 36415; 70450; 71045; 80048; 80053; 80061; 80307; 81001; 81003; 82550; 82803; 82947; 83735; 83880; 84443; 84484; 85025; 85027; 85610; 85730; 90656; 93005; 93306; 99285; J0153; J1644; J1650; J2060; J2405; J7120; Q9957

== ENCOUNTER 2023-11-14 19:44 | Outpatient (BNV) | payer MEDICAID, SELFPAY | END 2023-11-15 07:00 | PROVIDERS: Admitting Provider Student in an Organized Health Care Education/Training Program; Emergency Provider Emergency Medicine; Visit Provider Internal Medicine Cardiovascular Disease | DX: I21.4 Non-ST elevation (NSTEMI) myocardial infarction (principal) | CPT/HCPCS: 93306 ==

== ENCOUNTER → 2023-11-14 19:44 | Outpatient (BNV) | payer MEDICAID, SELFPAY | PROVIDERS: Admitting Provider Student in an Organized Health Care Education/Training Program; Emergency Provider Emergency Medicine; Visit Provider Internal Medicine Cardiovascular Disease | DX: R00.0 Tachycardia, unspecified (principal); R79.89 Other specified abnormal findings of blood chemistry | CPT/HCPCS: 99222 ==

== ENCOUNTER → 2023-11-14 19:44 | Outpatient (BNV) | payer MEDICAID, SELFPAY | PROVIDERS: Admitting Provider Student in an Organized Health Care Education/Training Program; Emergency Provider Emergency Medicine; Visit Provider Hospitalist | DX: F14.929 Cocaine use, unspecified with intoxication, unspecified (principal); N17.9 Acute kidney failure, unspecified; I21.4 Non-ST elevation (NSTEMI) myocardial infarction; E83.41 Hypermagnesemia | CPT/HCPCS: 99223; 99233; 99239; 99499 ==

== ENCOUNTER 2023-11-25 09:50 | Outpatient (REF) | payer MEDICAID, SELFPAY ==
[2023-11-25 11:52] LABS: MANUAL DIFF FLAG NO
[2023-11-25 12:04] LABS: Basophils Absolute Auto 0.1 X10*3/uL (0.0-0.2); Basophils Percent Auto 1.4 % (0-2); Eosinophils Absolute Auto 0.1 X10*3/uL (0.0-0.4); Eosinophils Percent Auto 1.9 % (0-4); Hematocrit 40.8 % (42.0-52.0); Hemoglobin 12.9 g/dl (14.0-18.0); Imm Gran Abs Auto 0.03 X10*3/uL (0.00-0.03); Imm Gran Pct Auto 0.8 % (0.0-0.4); Lymphocytes Absolute Auto 0.9 X10*3/uL (1.2-4.9); Lymphocytes Percent Auto 23.2 % (20-40); Mean Corpuscular HGB Conc 31.6 g/dl (31.0-36.0); Mean Corpuscular Volume 85.5 fL (80.0-98.0); Mean Platelet Volume 9.6 fL (9.4-12.4); Monocytes Absolute Auto 0.7 X10*3/uL (0.1-1.2); Monocytes Percent Auto 18.4 % (2-11); Neutrophils Percent Auto 54.3 % (45-73); Platelet Count 427 X10*3/uL (160-400); Red Blood Count 4.77 X10*6/uL (4.60-5.80); Red Cell Distribution Width 14.7 % (11.0-16.0); White Blood Count 3.7 X10*3/uL (4.8-10.8)
[2023-11-25 12:28] LABS: B Type Natriuretic Peptide 24 pg/mL (<100)
[2023-11-25 12:36] LABS: Alanine Aminotransferase 71 U/L (0-40); Albumin Level 4.2 g/dL (3.5-5.0); Alkaline Phosphatase 103 U/L (39-117); Anion Gap 12 (12-20); Aspartate Amino Transferase 52 U/L (5-37); Bilirubin Total 0.3 mg/dL (0.0-1.0); Blood Urea Nitrogen 11 mg/dL (9-16); Calcium 9.7 mg/dL (8.4-10.2); Carbon Dioxide 29 mmol/L (22-29); Chloride 101 mmol/L (96-108); Estimated Glomerular Filt Rate > 60; Glucose Random 94 mg/dL (60-115); Potassium 3.5 mmol/L (3.3-5.1); Sodium 138 mmol/L (135-145); Total Protein 7.7 g/dL (6.5-8.0)
[2023-11-25 12:59] LABS: Vitamin D 25-OH Total 22.1 ng/mL (>30)
== END 2023-11-25 09:51 | disposition home or self-care (01) ==
LOC: HO.HHCL 09:50
PROVIDERS: Visit Provider Internal Medicine
DX: I21.4 Non-ST elevation (NSTEMI) myocardial infarction (principal); I10 Essential (primary) hypertension; R73.01 Impaired fasting glucose; N17.9 Acute kidney failure, unspecified
CPT/HCPCS: 36415; 80053; 82306; 83880; 84443; 85025

== ENCOUNTER 2023-12-01 20:36 | Emergency (ER) | payer MEDICAID, SELFPAY ==
--- NOTE | 2023-12-01 | ECG_ITS ---
Test Reason : KORY Blood Pressure : / mmHG Vent. Rate : 099 BPM Atrial Rate : 099 BPM P-R Int : 160 ms QRS Dur : 098 ms QT Int : 354 ms P-R-T Axes : 046 -21 024 degrees QTc Int : 454 ms Normal sinus rhythm Possible Left atrial enlargement Incomplete right bundle branch block Left ventricular hypertrophy ( R in aVL , Sergio product ) Abnormal ECG When compared with ECG of 14-NOV-2023 19:54, No significant change was found Referred By: Generic ED Physician Electronically Signed By:JOSESITO MACEDO
[2023-12-01 20:39] VITALS: BP 184/100; PULSE 118; O2SAT 94
[2023-12-01 20:52] VITALS: BP 157/98; PULSE 97; RESP 22; TEMP 36.9; O2SAT 98; BMI 31.9
[2023-12-01] MEDS: Doxycycline Monohydrate 100 MG CAPSULE PO (22:04)
[2023-12-01] MEDS: cephALEXin 500 MG CAPSULE PO (22:04)
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
== END 2023-12-01 23:40 | disposition home or self-care (01) ==
PROVIDERS: Emergency Provider Internal Medicine
DX: T40.1X1A Poisoning by heroin, accidental (unintentional), initial encounter (principal); R40.4 Transient alteration of awareness; L03.221 Cellulitis of neck; Y92.9 Unspecified place or not applicable; F14.10 Cocaine abuse, uncomplicated; Z87.891 Personal history of nicotine dependence; Z79.899 Other long term (current) drug therapy
CPT/HCPCS: 93005; 99283; 99284

== ENCOUNTER 2024-01-09 08:26 | Inpatient (IN) | payer OTHER, SELFPAY ==
[2024-01-09] VITALS (7 sets, daily range): BP systolic 119–178; BP diastolic 77–106; PULSE 70–82; RESP 16–20; TEMP 36.3–36.9; O2SAT 98–100; BMI 30.1
[2024-01-09 09:40] LABS: MANUAL DIFF FLAG NO
[2024-01-09 09:41] LABS: Basophils Percent Auto 0.7 % (0-2); Eosinophils Absolute Auto 0.2 X10*3/uL (0.0-0.4); Hematocrit 39.1 % (42.0-52.0); Hemoglobin 12.7 g/dl (14.0-18.0); Imm Gran Abs Auto 0.03 X10*3/uL (0.00-0.03); Imm Gran Pct Auto 0.5 % (0.0-0.4); Lymphocytes Absolute Auto 1.7 X10*3/uL (1.2-4.9); Lymphocytes Percent Auto 29.6 % (20-40); Mean Corpuscular HGB Conc 32.5 g/dl (31.0-36.0); Mean Corpuscular Hemoglobin 27.4 pg (27.0-33.0); Mean Corpuscular Volume 84.3 fL (80.0-98.0); Mean Platelet Volume 9.3 fL (9.4-12.4); Monocytes Absolute Auto 0.7 X10*3/uL (0.1-1.2); Monocytes Percent Auto 12.3 % (2-11); Neutrophils Absolute Auto 3.1 x10*3/uL (2.0-8.3); Neutrophils Percent Auto 53.9 % (45-73); Platelet Count 328 X10*3/uL (160-400); Red Blood Count 4.64 X10*6/uL (4.60-5.80); Red Cell Distribution Width 15.2 % (11.0-16.0); White Blood Count 5.7 X10*3/uL (4.8-10.8)
[2024-01-09 09:55] LABS: Amphetamine Screen Urine Not Detected (Not Detect); Barbiturates, Urine Not Detected (Not Detect); Benzodiazepines Screen Urine Not Detected (Not Detect); Buprenorphine Scr Not Detected (Not Detect); Cannabinoid Screen Urine Not Detected (Not Detect); Cocaine Screen Urine POSITIVE (Not Detect); Fentanyl, urine POSITIVE (Not Detect); Methadone Screen, Urine Not Detected (Not Detect); Opiate Screen Urine POSITIVE (Not Detect); Oxycodone Screen Urine Not Detected (Not Detect); Phencyclidine Screen Urine Not Detected (Not Detect)
[2024-01-09 09:57] LABS: Alanine Aminotransferase 71 U/L (0-40); Albumin Level 3.8 g/dL (3.5-5.0); Alkaline Phosphatase 102 U/L (39-117); Anion Gap 11 (12-20); Aspartate Amino Transferase 34 U/L (5-37); Bilirubin Total 0.2 mg/dL (0.0-1.0); Blood Urea Nitrogen 12 mg/dL (9-16); Calcium 8.8 mg/dL (8.4-10.2); Carbon Dioxide 29 mmol/L (22-29); Chloride 99 mmol/L (96-108); Creatinine Clr Calc Pharmacy 102.6; Estimated Glomerular Filt Rate > 60; Ethanol < 10 mg/dL; Glucose Random 112 mg/dL (60-115); Potassium 3.7 mmol/L (3.3-5.1); Sodium 135 mmol/L (135-145)
[2024-01-09 09:58] LABS: Acetaminophen LAB < 3 mcg/mL (<30); Salicylate < 5.0 mg/dL (15-30)
--- NOTE | 2024-01-09 10:58 | ECG_ITS ---
Test Reason : MEDICAL CLEARENCE Blood Pressure : / mmHG Vent. Rate : 078 BPM Atrial Rate : 078 BPM P-R Int : 152 ms QRS Dur : 096 ms QT Int : 376 ms P-R-T Axes : 065 -06 042 degrees QTc Int : 428 ms Normal sinus rhythm Normal ECG When compared with ECG of 01-DEC-2023 20:41, No significant change was found Referred By: Nan Franco Electronically Signed By:Lance Lopez
[2024-01-09 11:14] LABS: Appearance Urine Clear; Color Urine Yellow; Glucose Urine UA Negative (Negative); Leukocyte Esterase Urine Negative (Negative); Nitrite Urine Negative (Negative); PH 6.5 (5.0-9.0); Specific Gravity - Urine 1.015 (1.005-1.025); Urine Blood Negative (Negative); Urine Ketones Negative (Negative); Urine Protein Negative (Neg-Trace)
--- NOTE | 2024-01-09 12:25 | ED.PSYCH ---
HPI - Psych General Chief Complaint: Psychiatric Symptoms Stated Complaint: crisis Time Seen by Provider: 01/09/24 11:09 Source: patient Limitations: no limitations History of Present Illness ED Provider: Maddie rodrigues PA-C HPI Narrative: 48-year-old male with a history of hypertension, NSTEMI, polysubstance abuse , presents with SI. Patient verbalizes concerns of feeling ?hopeless?, however does not have a specific plan for self-harm. Patient has not been taking his prescribed medication for his hypertension. Related Data Home Medications ?Medication ?Instructions ?Recorded ?Confirmed cyclobenzaprine 10 mg tablet 10 mg PO BEDTIME 11/14/23 01/09/24 melatonin 5 mg tablet 10 mg PO BEDTIME 11/14/23 01/09/24 pantoprazole 20 mg tablet,delayed 20 mg PO DAILY@0630 11/14/23 01/09/24 release acetaminophen 500 mg tablet 500 mg PO Q6H PRN mild pain 01/09/24 01/09/24 clonidine HCl 0.1 mg tablet 0.1 mg PO BID 01/09/24 01/09/24 ibuprofen 400 mg tablet 400 - 800 mg PO Q8H PRN moderate 01/09/24 01/09/24 pain lisinopril 40 mg tablet 20 mg PO DAILY 01/09/24 01/09/24 Allergies Allergy/AdvReac Type Severity Reaction Status Date / Time No Known Allergies Allergy Verified 01/09/24 08:35 [No Known Allergies*] Review of Systems Review of Systems: Yes all other systems are reviewed and are negative Constitutional: Constitutional: Denies fatigue and Denies fever(s) Cardiovascular: Cardiovascular: Denies chest pain Gastrointestinal: Gastrointestinal: Denies nausea Psychiatric: Psychiatric: Reports hopelessness Endocrine: Endocrine: Denies fatigue [facility] Past Medical History Attestation statement: The following information was validated with the patient. Medical History Polysubstance use disorder Social History Social History Household Members: None Housing: Apartment Do you presently have visiting nurse or other home services: No Unable to assess alcohol history related to: Unknown Patient Tobacco Use Status: Former Tobacco user Use of substances other than those prescribed or required for medical reasons: Yes Substance Use Type: Heroin Advance Directives: No Advance Directives Information Provided: Yes service: No Physical Exam Vital Signs: Vital Signs: Last Vital Signs Temp 98.2 F 01/09/24 15:14 Pulse 82 01/09/24 15:14 Resp 16 01/09/24 15:14 BP 134/82 01/09/24 15:14 Pulse Ox 100 01/09/24 15:14 O2 Del Method Room Air 01/09/24 15:14 BMI result Body Mass Index 30.1 Const: Other: Alert Orientation/consciousness: patient oriented x3 Resp: Other: Nonlabored respiration Cardio: Other: Normal peripheral perfusion Skin: Other: Warm dry no rash Neuro: General: patient oriented x3, no focal motor deficits and CN's II-XI intact bilaterally Psych: Other: Calm cooperative Medications Administered Discontinued Medications Generic Name Dose Route Start Last Admin Trade Name Kiranq PRN Reason Stop Dose Admin Clonidine HCl 0.1 mg 01/09/24 12:25 01/09/24 12:49 Clonidine Hcl 0.1 Mg Tablet PO 01/09/24 12:26 0.1 mg ONCE ONE Administration Protocol Lisinopril 20 mg 01/09/24 12:25 01/09/24 12:49 Lisinopril 20 Mg Tablet PO 01/09/24 12:26 20 mg ONCE ONE Administration Protocol Methadone HCl 20 mg 01/09/24 12:45 01/09/24 12:49 Methadone Hcl 20 Mg/2 Ml Oral.Conc PO 01/09/24 12:46 20 mg ONCE ONE Administration Medical Decision Making Medical Decision Making MDM Narrative: 48-year-old male with a history of hypertension, NSTEMI, polysubstance abuse, presents with SI. Patient verbalizes concerns of feeling ?hopeless?, however does not have a specific plan for self-harm. Patient has not been taking his prescribed medication for his hypertension. Problem: Polysubstance abuse, hypertension History: Per patient I have considered the following differential diagnoses: SI, HI, decompensated psychiatric illness, drug/alcohol intoxication Plan: Screening labs including serum ethanol and drug screen are completed, a consult with the care team was already placed, the patient was already seen, the patient is a bed search. I am speaking to 1 of the addiction counselors, she is asking that we place an order for 20 mg of methadone to deter withdrawal symptoms. We will do so now. I am also ordering the patient's medication for his hypertension. Physician obs. and diet have been ordered. Blood pressure. I have independently reviewed the following tests: Labs: No leukocytosis, not anemic, no electrolyte abnormality, drug screen positive for opiates, fentanyl, cocaine, serum ethanol negative Lab Data 01/09/24 09:31 01/09/24 09:31 Labs: Lab Results 01/09/24 Range/Units 09:31 WBC 5.7 (4.8-10.8) X10*3/uL RBC 4.64 (4.60-5.80) X10*6/uL Hgb 12.7 L (14.0-18.0) g/dl Hct 39.1 L (42.0-52.0) % MCV 84.3 (80.0-98.0) fL MCH 27.4 (27.0-33.0) pg MCHC 32.5 (31.0-36.0) g/dl RDW 15.2 (11.0-16.0) % Plt Count 328 (160-400) X10*3/uL MPV 9.3 L (9.4-12.4) fL Immature Gran % (Auto) 0.5 H (0.0-0.4) % Neut % (Auto) 53.9 (45-73) % Lymph % (Auto) 29.6 (20-40) % [place] % (Auto) 12.3 H (2-11) % Eos % (Auto) 3.0 (0-4) % Baso % (Auto) 0.7 (0-2) % Lymph # (Auto) 1.7 (1.2-4.9) X10*3/uL [place] # (Auto) 0.7 (0.1-1.2) X10*3/uL Eos # (Auto) 0.2 (0.0-0.4) X10*3/uL Baso # (Auto) 0.0 (0.0-0.2) X10*3/uL Abs Immat Gran (auto) 0.03 (0.00-0.03) X10*3/uL Absolute Neuts (auto) 3.1 (2.0-8.3) x10*3/uL Absolute Nucleated RBC 0.000 (0.0-0.012) X10*3/uL Nucleated RBC % (auto) 0.0 (0.0-0.2) /100WBC Sodium 135 (135-145) mmol/L Potassium 3.7 (3.3-5.1) mmol/L Chloride 99 (96-108) mmol/L Carbon Dioxide 29 (22-29) mmol/L Anion Gap 11 L (12-20) BUN 12 (9-16) mg/dL Creatinine 0.80 (0.5-1.4) mg/dL Estim Creat Clear Calc 102.6 Estimated GFR > 60 Random Glucose 112 (60-115) mg/dL Calcium 8.8 D (8.4-10.2) mg/dL Total Bilirubin 0.2 (0.0-1.0) mg/dL AST 34 (5-37) U/L ALT 71 H (0-40) U/L Alkaline Phosphatase 102 (39-117) U/L Total Protein 7.0 (6.5-8.0) g/dL Albumin 3.8 (3.5-5.0) g/dL Urine Color Yellow Urine Appearance Clear Urine pH 6.5 (5.0-9.0) Ur Specific [place] 1.015 (1.005-1.025) Urine Protein Negative (Neg-Trace) mg/dL Urine Glucose (UA) Negative (Negative) mg/dL Urine Ketones Negative (Negative) mg/dL Urine Blood Negative (Negative) Urine Nitrite Negative (Negative) Ur Leukocyte Esterase Negative (Negative) Salicylates < 5.0 L (15-30) mg/dL Urine Opiates Screen POSITIVE H (Not Detect) Ur Buprenorphine Scrn Not Detected (Not Detect) ng/mL Ur Oxycodone Screen Not Detected (Not Detect) ng/mL Urine Methadone Screen Not Detected (Not Detect) ng/mL Urine Fentanyl Screen POSITIVE H (Not Detect) Acetaminophen < 3 (<30) mcg/mL Ur Barbiturates Screen Not Detected (Not Detect) Ur Phencyclidine Scrn Not Detected (Not Detect) Ur Amphetamines Screen Not Detected (Not Detect) U Benzodiazepines Scrn Not Detected (Not Detect) Urine Cocaine Screen POSITIVE H (Not Detect) U Marijuana (THC) Screen Not Detected (Not Detect) Ethyl Alcohol < 10 mg/dL Discharge Plan Discharge Clinical Impression: Polysubstance abuse, Suicidal ideation Patient Disposition: Still a Patient Prescriptions: No Action cyclobenzaprine 10 mg tablet 10 mg PO BEDTIME pantoprazole 20 mg tablet,delayed release (DR/EC) 20 mg PO DAILY@0630 melatonin 5 mg tablet 10 mg PO BEDTIME clonidine HCl 0.1 mg tablet 0.1 mg PO BID acetaminophen 500 mg tablet 500 mg PO Q6H PRN (Reason: mild pain) ibuprofen 400 mg tablet 400 - 800 mg PO Q8H PRN (Reason: moderate pain) lisinopril 40 mg tablet 20 mg PO DAILY Interventions: [place]-Suicide Risk Severity Scale Last Done: 01/09/24 10:15 Print Language: Lao
--- NOTE | 2024-01-09 12:36 | MHC.RECOVRN ---
Met with pt in [facility] to assess for opioid withdrawal. Pt had been assessed by CARE Team and is IPLOC. Pt laying in bed, awake, alert, easily engages in conversation. Pt reports using 2 bags heroin/fentanyl daily x approx 5 days; cocaine, IV, $20 daily x 1 month. Pt reports current withdrawal symptoms including piloerection, chills, diaphoresis. Pt reports he had been in recovery for a couple years prior to recurrence. Pt reports he had been on methadone, 150 mg, and tapered off sometime last year. Pt would like to utilize methadone while here to address withdrawal symptoms. Pt denies other questions or concerns for t/w. Discussed with Violeta Polanco APRN, and ED provider. Plan to administer 20 mg methadone.
[2024-01-09] MEDS: methADONE HCl 20 MG/2 ML ORAL.CONC PO (12:49)
[2024-01-09] MEDS: cloNIDine HCL 0.1 MG TABLET PO ×2 (12:49→21:24)
[2024-01-09] MEDS: lisinopriL 20 MG TABLET PO (12:49)
--- NOTE | 2024-01-09 14:28 | MHC.CARE ---
Patient evaluated by the CARE Team, disposition inpatient psychiatric treatment, Dr. Franco updated.
--- NOTE | 2024-01-09 15:15 | PC.NURSE ---
Assumed care of patient at 1445, patient appears to be in no apparent distress at this time. Pt is calm and cooperative, alert and oriented x4. Patient offers no complaints at this time. Continue plan of care for inpatient bedsearch
--- NOTE | 2024-01-09 17:50 | PC.ADMIT ---
Pt arrived on the unit at 1731 from [facility]. Pt signed CV with CAW. Skin check/ vitals done with two RNs per policy. No concerns noted. Admission assessment deferred until next shift.
[2024-01-09] MEDS: hydrOXYzine HCL 25 MG TABLET PO (17:58)
[2024-01-09] MEDS: Cyclobenzaprine HCl 10 MG TABLET PO (21:24)
[2024-01-10 08:00] VITALS: BP 116/67; PULSE 67; RESP 15; TEMP 36.3; O2SAT 100
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
[2024-01-10] MEDS: methADONE HCl 20 MG/2 ML ORAL.CONC PO (09:20)
[2024-01-10] MEDS: Flu Vacc TS2024-25(6mos up)/PF 0.5 ML SYRINGE IM (09:26)
[2024-01-10 09:29] VITALS: BP 116/67
[2024-01-10] MEDS: cloNIDine HCL 0.1 MG TABLET PO ×2 (09:29→20:22)
[2024-01-10] MEDS: Omeprazole 20 MG CAPSULE.DR PO (09:30)
[2024-01-10] MEDS: Folic Acid 1 MG TABLET PO (09:30)
[2024-01-10] MEDS: Thiamine HCL 100 MG TABLET PO (09:30)
[2024-01-10 09:31] VITALS: BP 116/67
[2024-01-10] MEDS: lisinopriL 20 MG TABLET PO (09:31)
[2024-01-10 10:34] LABS: Alanine Aminotransferase 60 U/L (0-40); Albumin Level 3.6 g/dL (3.5-5.0); Alkaline Phosphatase 84 U/L (39-117); Anion Gap 10 (12-20); Aspartate Amino Transferase 35 U/L (5-37); Bilirubin Total 0.3 mg/dL (0.0-1.0); Blood Urea Nitrogen 18 mg/dL (9-16); Calcium 8.8 mg/dL (8.4-10.2); Carbon Dioxide 30 mmol/L (22-29); Chloride 101 mmol/L (96-108); Cholesterol 126 mg/dL (<200); Creatinine Clr Calc Pharmacy 91.2; Estimated Glomerular Filt Rate > 60; Glucose Fasting 77 mg/dL (60-99); HDL Cholesterol 42 mg/dL (>40); LDL Cholesterol Calculated 57 mg/dL (<100); Potassium 3.9 mmol/L (3.3-5.1); Sodium 137 mmol/L (135-145); Total Protein 6.7 g/dL (6.5-8.0); Triglycerides 136 mg/dL (<150)
[2024-01-10 10:56] LABS: Estimated Average Glucose 103 mg/dL; Hemoglobin A1C 137.2554 umol/L; Hemoglobin A1c % 5.2 % (<6.0); Total Hemoglobin (HGBA1C) 4185.3027 umol/L
[2024-01-10 20:00] VITALS: BP 121/66; PULSE 99; RESP 16; TEMP 36.1; O2SAT 94
[2024-01-10] MEDS: Cyclobenzaprine HCl 10 MG TABLET PO (20:22)
[2024-01-10] MEDS: risperiDONE 0.5 MG TABLET PO (20:22)
[2024-01-10] MEDS: Melatonin 3 MG TABLET PO (20:22)
[2024-01-11] MEDS: methADONE HCl 20 MG/2 ML ORAL.CONC 15 MG PO (07:40)
[2024-01-11 08:00] VITALS: BP 109/64; PULSE 71; RESP 16; TEMP 36.4; O2SAT 100
[2024-01-11] MEDS: lisinopriL 20 MG TABLET PO (08:14)
[2024-01-11] MEDS: Thiamine HCL 100 MG TABLET PO (08:15)
[2024-01-11] MEDS: Folic Acid 1 MG TABLET PO (08:15)
[2024-01-11] MEDS: cloNIDine HCL 0.1 MG TABLET PO ×2 (08:15→21:00)
[2024-01-11] MEDS: Acetaminophen 325 MG TABLET 650 MG PO (08:15)
[2024-01-11] MEDS: Omeprazole 20 MG CAPSULE.DR PO (08:15)
[2024-01-11] MEDS: risperiDONE 0.5 MG TABLET PO ×2 (08:16→21:01)
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
--- NOTE | 2024-01-11 11:23 | P.EN_ITS ---
Event Note Date of Service: 01/11/24 Event Note: Patient is a 48-year-old male with a PMH significant for polysubstance use disorder, hx cocaine induced NSTEMI, GERD, and mood disorder who was admitted [facility] for feelings of hopelessness and vague SI. Hospitalist consult for discoloration on toes. Patient reports he noticed his toes started turning dark approximately 1-2 weeks ago. Has associated sharp, stabbing, and shooting pains in his feet and toes. Patient admits to continued cocaine use, injecting approximately half an ounce daily. Physical exam reveals discoloration of all toes primarily on anterior aspect. As pictured below. Lower extremities and feet warm and well-perfused, with pedal pulses 2+ and good capillary refill. Patient is able to move all toes independently. Plan: Discoloration likely secondary to cocaine-induced peripheral vasoconstriction/endothelial dysfunction. Given that extremities are warm, well- perfused, and with good capillary refill, no indication for imaging with arterial Doppler scan. Best course of treatment to prevent further damage is to refrain from cocaine use. For peripheal neuropathy can trial a low-dose course of gabapentin if not contraindicated by pt's psychiatric treatment. Time Spent With Patient Time: Total time managing care of this patient today ____ minutes.
[2024-01-11 19:54] VITALS: BP 119/58; PULSE 80; RESP 16; TEMP 36.9; O2SAT 98
[2024-01-11] MEDS: Cyclobenzaprine HCl 10 MG TABLET PO (21:00)
[2024-01-11] MEDS: Gabapentin 100 MG CAPSULE PO (21:01)
[2024-01-11] MEDS: Melatonin 3 MG TABLET PO (21:01)
[2024-01-12] MEDS: methADONE HCl 20 MG/2 ML ORAL.CONC 10 MG PO (07:28)
[2024-01-12 07:54] VITALS: BP 126/82; PULSE 83; RESP 16; TEMP 36.6; O2SAT 100
[2024-01-12] MEDS: Omeprazole 20 MG CAPSULE.DR PO (08:07)
[2024-01-12] MEDS: Thiamine HCL 100 MG TABLET PO (08:07)
[2024-01-12] MEDS: Gabapentin 100 MG CAPSULE PO ×2 (08:07→20:20)
[2024-01-12] MEDS: Folic Acid 1 MG TABLET PO (08:07)
[2024-01-12] MEDS: risperiDONE 0.5 MG TABLET PO ×2 (08:08→20:21)
[2024-01-12] MEDS: cloNIDine HCL 0.1 MG TABLET PO ×2 (08:08→20:20)
[2024-01-12] MEDS: lisinopriL 20 MG TABLET PO (08:13)
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
[2024-01-12 19:49] VITALS: BP 125/74; PULSE 92; RESP 14; TEMP 36.2; O2SAT 98
[2024-01-12] MEDS: Cyclobenzaprine HCl 10 MG TABLET PO (20:21)
[2024-01-12] MEDS: Melatonin 3 MG TABLET PO (20:21)
--- NOTE | 2024-01-12 22:53 | PC.NURSE ---
Pt signed a 3-Day notice today on 01/12/24. Wants to be discharged by .
[2024-01-13] MEDS: Omeprazole 20 MG CAPSULE.DR PO (06:59)
[2024-01-13] MEDS: methADONE HCl 20 MG/2 ML ORAL.CONC 5 MG PO (07:52)
[2024-01-13 08:00] VITALS: BP 126/88; PULSE 70; RESP 18; TEMP 36.3; O2SAT 100
[2024-01-13] MEDS: risperiDONE 0.5 MG TABLET PO (08:58)
[2024-01-13] MEDS: Thiamine HCL 100 MG TABLET PO (08:58)
[2024-01-13] MEDS: lisinopriL 20 MG TABLET PO (08:58)
[2024-01-13] MEDS: cloNIDine HCL 0.1 MG TABLET PO ×2 (08:58→20:53)
[2024-01-13] MEDS: Folic Acid 1 MG TABLET PO (08:58)
[2024-01-13] MEDS: Gabapentin 100 MG CAPSULE PO ×2 (08:58→20:53)
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
[2024-01-13 20:00] VITALS: BP 135/70; PULSE 76; RESP 16; TEMP 36.3; O2SAT 100
[2024-01-13] MEDS: Cyclobenzaprine HCl 10 MG TABLET PO (20:53)
[2024-01-13] MEDS: Melatonin 3 MG TABLET PO (20:53)
[2024-01-13] MEDS: risperiDONE 2 MG TABLET PO (20:53)
[2024-01-14 08:00] VITALS: BP 131/76; PULSE 83; RESP 16; TEMP 36.3; O2SAT 100
[2024-01-14] MEDS: Omeprazole 20 MG CAPSULE.DR PO (08:36)
[2024-01-14] MEDS: lisinopriL 20 MG TABLET PO (08:36)
[2024-01-14] MEDS: Thiamine HCL 100 MG TABLET PO (08:36)
[2024-01-14] MEDS: Folic Acid 1 MG TABLET PO (08:36)
[2024-01-14] MEDS: Gabapentin 100 MG CAPSULE PO ×2 (08:36→21:04)
[2024-01-14] MEDS: risperiDONE 1 MG TABLET PO (08:36)
[2024-01-14] MEDS: hydrOXYzine HCL 25 MG TABLET PO (13:02)
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
[2024-01-14 20:00] VITALS: BP 134/80; PULSE 103; TEMP 37.6; O2SAT 97
[2024-01-14 21:05] VITALS: BP 134/80
[2024-01-14] MEDS: Melatonin 3 MG TABLET PO (21:05)
[2024-01-14] MEDS: cloNIDine HCL 0.1 MG TABLET PO (21:05)
[2024-01-14] MEDS: Cyclobenzaprine HCl 10 MG TABLET PO (21:05)
[2024-01-14] MEDS: risperiDONE 2 MG TABLET PO (21:06)
[2024-01-15 07:47] VITALS: BP 157/83; PULSE 83; RESP 18; TEMP 36.4; O2SAT 100
[2024-01-15] MEDS: Folic Acid 1 MG TABLET PO (08:22)
[2024-01-15] MEDS: Thiamine HCL 100 MG TABLET PO (08:22)
[2024-01-15] MEDS: cloNIDine HCL 0.1 MG TABLET PO ×2 (08:22→20:33)
[2024-01-15] MEDS: Gabapentin 100 MG CAPSULE PO (08:22)
[2024-01-15] MEDS: Omeprazole 20 MG CAPSULE.DR PO (08:22)
[2024-01-15] MEDS: risperiDONE 1 MG TABLET PO (08:22)
[2024-01-15] MEDS: lisinopriL 20 MG TABLET PO (08:23)
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
[2024-01-15] MEDS: Gabapentin 100 MG CAPSULE 200 MG PO (13:02)
[2024-01-15 19:50] VITALS: BP 131/81; PULSE 78; RESP 16; TEMP 36.3; O2SAT 100
[2024-01-15] MEDS: risperiDONE 3 MG TABLET PO (20:32)
[2024-01-15] MEDS: Gabapentin 300 MG CAPSULE PO (20:32)
[2024-01-15] MEDS: Melatonin 3 MG TABLET PO (20:33)
[2024-01-15] MEDS: Cyclobenzaprine HCl 10 MG TABLET PO (20:33)
[2024-01-16 07:00] VITALS: BMI 31.7
[2024-01-16 08:10] VITALS: BP 126/85; PULSE 80; RESP 18; TEMP 36.6; O2SAT 100
[2024-01-16] MEDS: lisinopriL 20 MG TABLET PO (08:26)
[2024-01-16] MEDS: Gabapentin 300 MG CAPSULE PO ×2 (08:26→20:42)
[2024-01-16] MEDS: Omeprazole 20 MG CAPSULE.DR PO (08:26)
[2024-01-16] MEDS: cloNIDine HCL 0.1 MG TABLET PO (08:26)
[2024-01-16] MEDS: Thiamine HCL 100 MG TABLET PO (08:26)
[2024-01-16] MEDS: Folic Acid 1 MG TABLET PO (08:26)
--- NOTE | 2024-01-16 11:19 | MHC.RECOVSUP ---
pt filled out recovery agent referral form for [facility]. Form was sent to Nhan Boothe via Email. pt disclosed he previously attended [facility] at [facility] through [facility]. pt is motived, has experience with recovery, and has a plan- just needs to follow through.
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
[2024-01-16 20:00] VITALS: BP 130/73; PULSE 103; RESP 16; TEMP 37.1; O2SAT 99
[2024-01-16] MEDS: risperiDONE 3 MG TABLET PO (20:42)
[2024-01-16] MEDS: Cyclobenzaprine HCl 10 MG TABLET PO (20:42)
[2024-01-16] MEDS: Melatonin 3 MG TABLET PO (20:42)
[2024-01-17 08:13] VITALS: BP 181/94; PULSE 89; TEMP 36.4; O2SAT 100
[2024-01-17] MEDS: Gabapentin 300 MG CAPSULE PO (08:16)
[2024-01-17] MEDS: Thiamine HCL 100 MG TABLET PO (08:16)
[2024-01-17] MEDS: Omeprazole 20 MG CAPSULE.DR PO (08:16)
[2024-01-17] MEDS: Folic Acid 1 MG TABLET PO (08:16)
[2024-01-17] MEDS: cloNIDine HCL 0.1 MG TABLET PO (08:16)
[2024-01-17] MEDS: lisinopriL 20 MG TABLET PO (08:17)
[2024-01-17] MEDS: Naloxone HCl Nasal TAKE HOME 4 MG SPRAY 8 MG NOSTRILALT (08:17)
--- NOTE | 2024-01-17 09:03 | PM.PSYDC ---
DS: Providers Provider Date of Service: 01/17/24 Date of admission: 01/09/24 16:31 Date of discharge: 01/17/24 Primary care physician: Lara Headley MD Attending physician on admission: Tyler De Santiago Consults: 01/11/24 10:16 Consult to Hospitalist Routine Comment: Consulting Provider: Hospitalist Reason For Exam: discoloration of all toes Attending physician on discharge: Tyler De Santiago DS: Diagnosis Discharge Diagnosis (1) Schizoaffective disorder, depressive type: Status: Acute (2) Opioid use disorder: Status: Resolved (3) PTSD (post-traumatic stress disorder): Status: Acute (4) Cocaine use disorder: Status: Acute (5) NSTEMI (non-ST elevated myocardial infarction): Status: Inactive DS: Medications Discharge Medications Home Medications: Home Medications ?Medication ?Instructions ?Recorded ?Confirmed acetaminophen 500 mg tablet 500 mg PO Q6H PRN mild pain 01/09/24 01/09/24 ibuprofen 400 mg tablet 400 - 800 mg PO Q8H PRN moderate 01/09/24 01/09/24 pain Previous Rx's ?Medication ?Instructions ?Recorded clonidine HCl 0.1 mg tablet 0.1 mg PO BID 30 days #60 tabs 01/17/24 cyclobenzaprine 10 mg tablet 10 mg PO BEDTIME 30 days #30 tabs 01/17/24 gabapentin 300 mg capsule 300 mg PO BID 30 days #60 caps 01/17/24 hydroxyzine HCl 25 mg tablet 25 mg PO Q6H PRN Anxiety 30 days 01/17/24 #90 tabs lisinopril 20 mg tablet 20 mg PO DAILY 30 days #30 tabs 01/17/24 melatonin 5 mg tablet See Rx Instructions .Route 01/17/24 .COMPLEX PRN sleep 30 days #60 tabs pantoprazole 20 mg tablet,delayed 20 mg PO DAILY@0630 30 days #30 01/17/24 release tabs risperidone 3 mg tablet 3 mg PO BEDTIME 30 days #30 tabs 01/17/24 Data Data Completed and Pending Completed studies during hospitalization [Text1]: 01/10/24 09:51 Sodium 137 Potassium 3.9 Chloride 101 Carbon Dioxide 30 H Anion Gap 10 L BUN 18 H Creatinine 0.90 Estim Creat Clear Calc 91.2 Estimated GFR > 60 Fasting Glucose 77 Estimat Average Glucose 103 Hemoglobin A1c % 5.2 Calcium 8.8 Total Bilirubin 0.3 AST 35 ALT 60 H Alkaline Phosphatase 84 Total Protein 6.7 Albumin 3.6 Triglycerides 136 Cholesterol 126 LDL Cholesterol, Calc 57 HDL Cholesterol 42 Procalcitonin Cancelled TSH 1.80 DS: Summary Time Spent with Patient Time attestation: Total time managing care of this patient today ____ minutes. Discharge Plan Discharge Anticipated Discharge Date/Time: 01/17/24 11:30 Patient Disposition: Home, Self-Care Discharge Diagnosis: Schizoaffective disorder, depressed type Referrals: [facility] [Other] - 01/22/24 1:00 pm (Patient referred to [facility] for substance abuse treatment program. Intake for IOP program at [facility] is in person on 01/22/24 at 1:00 pm. Appointment will be approximately 1 & 1/[address] [facility] [Other] - 1 Week (Recovery Resources Saturday 8am-6pm Saturday 8am-6pm Saturday 8am-6pm 8am-8:30pm Saturday 8am-6pm Saturday 9am-4:30pm) Clinical and Support Options: [facility] [Other] - 01/27/24 4:00 pm (Initial Diagnostic evaluation for Therapy/Psychiatry services. Appointment is in person at [facility] Patient has also been referred for Recovery Coaching and Case Management Services. ) Lara Headley MD [Primary Care Provider] - 1 Week Discharge Medications: New gabapentin 300 mg Capsule 300 mg PO BID 30 Days Qty: 60 1RF hydroxyzine HCl 25 mg Tablet 25 mg PO Q6H PRN (Reason: Anxiety) 30 Days Qty: 90 1RF risperidone 3 mg Tablet 3 mg PO BEDTIME 30 Days Qty: 30 1RF Continued acetaminophen 500 mg tablet 500 mg PO Q6H PRN (Reason: mild pain) ibuprofen 400 mg tablet 400 - 800 mg PO Q8H PRN (Reason: moderate pain) cyclobenzaprine 10 mg tablet 10 mg PO BEDTIME 30 Days Qty: 30 1RF clonidine HCl 0.1 mg tablet 0.1 mg PO BID 30 Days Qty: 60 1RF lisinopril 20 mg tablet 20 mg PO DAILY 30 Days Qty: 30 0RF pantoprazole 20 mg tablet,delayed release (DR/EC) 20 mg PO DAILY@0630 30 Days Qty: 30 0RF Changed melatonin 5 mg tablet See Rx Instructions .ROUTE .COMPLEX PRN (Reason: sleep) 30 Days Qty: 60 1RF Rx Instructions: take 1 to 2 tabs as needed for insomnia Discharge Orders: Discharge Order (Routine); Ordered 01/17/24 Ordered By: Tyler De Santiago Diet: Regular diet Activity on Discharge: As tolerated Stand Alone Forms: Patient Portal Discharge page, Community Support Print Language: Faroese Care Plan Goals: Maintain mood and safe behaviors Take medications as prescribed Continue to pursue sobriety Practice coping skills Continue with outpatient providers and reach out to them as needed Health Concerns: Mood stability and behaviors Sobriety Hypertension GERD Plan of Treatment: Follow up with your PCP, psychiatric provider and other outpatient providers regarding above concerns Take medications as prescribed Assessment: Risk assessment at time of discharge:? Patient was interviewed prior to discharge and found to be fully oriented and without any SI or HI. Patient has improved insight and judgment and wants to continue treatment. Patient is not in imminent risk of harm to self or others and has a safety plan that includes presenting to the closest ER or calling 911 if feeling unsafe.? Patient has been observed closely by nursing and unit staff throughout admission; patient has not engaged in any behaviors that suggest dangerousness to self or others and has demonstrated appropriate behaviors and impulse control Discharge Date/Time: 01/17/24 11:01
== END 2024-01-17 11:01 | disposition home or self-care (01) | DRG 750 ==
LOC: HO.ED 16:10 → HO.PM5 16:39
PROVIDERS: Admitting Provider Psychiatry & Neurology Psychiatry; Emergency Provider Student in an Organized Health Care Education/Training Program; PCP Internal Medicine; Visit Provider Psychiatry & Neurology Psychiatry
DX: F25.1 Schizoaffective disorder, depressive type (principal); R45.851 Suicidal ideations; F19.10 Other psychoactive substance abuse, uncomplicated; F43.10 Post-traumatic stress disorder, unspecified; F14.10 Cocaine abuse, uncomplicated; F11.90 Opioid use, unspecified, uncomplicated; I10 Essential (primary) hypertension; Z23 Encounter for immunization; Z87.891 Personal history of nicotine dependence; Z79.899 Other long term (current) drug therapy
CPT/HCPCS: 36415; 80053; 80061; 80143; 80179; 80307; 81003; 83036; 84443; 85025; 90656; 93005; 99285; S9485

== ENCOUNTER → 2024-01-09 10:58 | Outpatient (BNV) | payer MEDICAID, SELFPAY | PROVIDERS: Admitting Provider Psychiatry & Neurology Psychiatry; Emergency Provider Student in an Organized Health Care Education/Training Program; PCP Internal Medicine; Visit Provider Internal Medicine Cardiovascular Disease | DX: R45.851 Suicidal ideations (principal) | CPT/HCPCS: 93010 ==

== ENCOUNTER → 2024-01-09 16:31 | Outpatient (BNV) | payer OTHER, SELFPAY | PROVIDERS: Admitting Provider Psychiatry & Neurology Psychiatry; Emergency Provider Student in an Organized Health Care Education/Training Program; PCP Internal Medicine; Visit Provider Psychiatry & Neurology Psychiatry | DX: F25.1 Schizoaffective disorder, depressive type (principal); F14.10 Cocaine abuse, uncomplicated; F11.90 Opioid use, unspecified, uncomplicated; F43.11 Post-traumatic stress disorder, acute; I21.4 Non-ST elevation (NSTEMI) myocardial infarction | CPT/HCPCS: 99231; 99232 ==

== ENCOUNTER 2024-02-10 18:33 | Inpatient (IN) | payer MEDICAID, OTHER, SELFPAY ==
--- NOTE | ~2024-02-10 | US_ITS ---
EXAMINATION: US ABDOMEN LIMITED CLINICAL INFORMATION: Elevated liver enzymes. COMPARISON: None available. TECHNIQUE: Real-time imaging of the right upper quadrant abdominal viscera. FINDINGS: PANCREAS: Visualized portions are unremarkable. LIVER: The liver is normal in size. The liver contour is normal. Parenchymal echogenicity is normal. No focal hepatic lesion. There is no intrahepatic biliary duct dilatation seen. GALLBLADDER: The gallbladder is physiologically distended without evidence of stones, sludge, polyps, wall thickening or pericholecystic fluid. COMMON BILE DUCT: Normal in caliber measuring 0 point cm in diameter. RIGHT KIDNEY: No hydronephrosis. No renal calculi or focal parenchymal lesions. The kidney measures 9.9 cm in maximum dimension. FREE FLUID: None. US/US abdomen limited IMPRESSION: Unremarkable right upper quadrant ultrasound. Electronically signed by: Neli Souza MD 02/11/2024 07:16 PM [facility]ACIEL
[2024-02-10 18:41] VITALS: BP 172/100; BP 183/108; PULSE 100; PULSE 73; RESP 20; TEMP 36.5; O2SAT 97; O2SAT 99
[2024-02-10 19:09] LABS: Appearance Urine Clear; Color Urine Yellow; Glucose Urine UA Negative (Negative); Leukocyte Esterase Urine Negative (Negative); Nitrite Urine Negative (Negative); PH 7.5 (5.0-9.0); Urine Blood Negative (Negative); Urine Ketones Negative (Negative); Urine Protein Negative (Neg-Trace)
[2024-02-10 19:21] LABS: Amphetamine Screen Urine Not Detected (Not Detect); Barbiturates, Urine Not Detected (Not Detect); Benzodiazepines Screen Urine Not Detected (Not Detect); Buprenorphine Scr Not Detected (Not Detect); Cannabinoid Screen Urine Not Detected (Not Detect); Cocaine Screen Urine POSITIVE (Not Detect); Fentanyl, urine POSITIVE (Not Detect); Methadone Screen, Urine Positive (Not Detect); Opiate Screen Urine POSITIVE (Not Detect); Oxycodone Screen Urine Not Detected (Not Detect); Phencyclidine Screen Urine Not Detected (Not Detect)
--- NOTE | 2024-02-10 21:38 | PHA.MEDREC ---
Pharmacy Consult ? Medication Reconciliation Pharmacy has reviewed the medication reconciliation done by nursing staff.
[2024-02-10] MEDS: Cyclobenzaprine HCl 10 MG TABLET PO (21:58)
[2024-02-10 21:59] VITALS: BP 181/97
[2024-02-10] MEDS: Gabapentin 300 MG CAPSULE PO (21:59)
[2024-02-10] MEDS: cloNIDine HCL 0.1 MG TABLET PO (21:59)
[2024-02-10] MEDS: risperiDONE 3 MG TABLET PO (21:59)
[2024-02-10 22:04] VITALS: BP 184/97; PULSE 84; RESP 16; TEMP 36.6; O2SAT 100
[2024-02-10 23:51] VITALS: BP 177/106; PULSE 82; RESP 18; O2SAT 100
--- NOTE | 2024-02-11 | ECG_ITS ---
Test Reason : med clearance Blood Pressure : / mmHG Vent. Rate : 061 BPM Atrial Rate : 061 BPM P-R Int : 164 ms QRS Dur : 108 ms QT Int : 406 ms P-R-T Axes : 049 000 -09 degrees QTc Int : 408 ms Normal sinus rhythm Voltage criteria for left ventricular hypertrophy ( R in aVL , Sokolow-Tom , [place] product ) Nonspecific T wave abnormality Abnormal ECG When compared with ECG of 09-JAN-2024 11:26, T wave inversion now evident in Inferior leads Referred By: Jesus Campoverde Electronically Signed By:RUBEN EUCEDA
[2024-02-11 00:01] VITALS: BP 177/106
[2024-02-11] MEDS: hydrOXYzine HCL 25 MG TABLET PO ×2 (00:01→20:17)
[2024-02-11] MEDS: lisinopriL 20 MG TABLET PO ×2 (00:01→10:52)
[2024-02-11] MEDS: LORazepam 1 MG TABLET 2 MG PO (00:01)
--- NOTE | 2024-02-11 00:42 | ED.PSYCH ---
HPI - Psych General Chief Complaint: Psychiatric Symptoms Stated Complaint: Wants to section self, used fentanyl x4hrs Time Seen by Provider: 02/10/24 19:43 Source: patient Mode of arrival: EMS Limitations: no limitations History of Present Illness ED Provider: HPI Narrative: Patient's history of depression anxiety not taking his medication since yesterday, substance abuse use fentanyl about 4 hours prior to arrival requesting as inpatient dual diagnose is a would like to stop using drugs would like to be on methadone denies any SI or HI Related Data Home Medications ?Medication ?Instructions ?Recorded ?Confirmed clonidine HCl 0.1 mg tablet 0.1 mg PO BID 02/10/24 02/10/24 cyclobenzaprine 10 mg tablet 10 mg PO BEDTIME 02/10/24 02/10/24 gabapentin 300 mg capsule 300 mg PO BID 02/10/24 02/10/24 hydroxyzine HCl 25 mg tablet 25 mg PO Q6H PRN anxiety 02/10/24 02/10/24 ibuprofen 400 mg tablet 400 - 800 mg PO Q8H PRN moderate 02/10/24 02/10/24 pain lisinopril 40 mg tablet 20 mg PO DAILY 02/10/24 02/10/24 melatonin 5 mg tablet 5 - 10 mg PO BEDTIME PRN insomnia 02/10/24 02/10/24 pantoprazole 20 mg tablet,delayed 20 mg PO QAM 02/10/24 02/10/24 release risperidone 3 mg tablet 3 mg PO BEDTIME 02/10/24 02/10/24 Allergies Allergy/AdvReac Type Severity Reaction Status Date / Time No Known Allergies Allergy Verified 02/10/24 18:44 [No Known Allergies*] Review of Systems Review of Systems: Yes all other systems are reviewed and are negative PMFSH Past Medical History Medical History Polysubstance abuse NSTEMI (non-ST elevated myocardial infarction) PTSD (post-traumatic stress disorder) Schizoaffective disorder, depressive type Cocaine use disorder Opioid use disorder MDD (major depressive disorder), recurrent severe, without psychosis Polysubstance use disorder Social History Social History Household Members: None Housing: Apartment Do you presently have visiting nurse or other home services: No Unable to assess alcohol history related to: Unknown Patient Tobacco Use Status: Former Tobacco user Substance Use Type: Heroin and Marijuana Advance Directives: No Advance Directives Information Provided: Yes service: No Sexual orientation: Straight/Heterosexual Physical Exam Vital Signs: Vital Signs: Last Vital Signs Temp 97.8 F 02/10/24 22:04 Pulse 82 02/10/24 23:51 Resp 18 02/10/24 23:51 BP 177/106 H 02/11/24 00:01 Pulse Ox 100 02/10/24 23:51 O2 Del Method Room Air 02/10/24 23:51 BMI result Body Mass Index 30.0 Appearance: Alert. Oriented X3. No acute distress. Anxious Eyes: PERRLA, No Nystagmus ENT: Pharynx normal. Oral Mucosa moist Neck: Normal inspection. Neck supple. CVS: Normal heart rate and rhythm. Pulses normal. Respiratory: No respiratory distress. Equal air entry bilateral, no wheezing/rales/rhonchi Abdomen: Soft and nontender. Bowel sounds are present, no mass palpable, no CVA tenderness Skin: Skin warm and dry. Normal skin color. Normal skin turgor. Extremities: No lower extremity edema. No calf tenderness psych: Anxious denies any SI or HI Neuro: Oriented X 3. No motor deficit. No sensory deficit.No cerebellar signs , cranial nerves II-XII intact Medications Administered Generic Name Dose Route Start Last Admin Trade Name Freq PRN Reason Stop Dose Admin Clonidine HCl 0.1 mg 02/10/24 21:15 02/10/24 21:59 Clonidine Hcl 0.1 Mg Tablet PO 0.1 mg BID SHARIF Administration Protocol Cyclobenzaprine HCl 10 mg 02/10/24 21:15 02/10/24 21:58 Cyclobenzaprine Hcl 10 Mg Tablet PO 10 mg BEDTIME SHARIF Administration Gabapentin 300 mg 02/10/24 21:15 02/10/24 21:59 Gabapentin 300 Mg Capsule PO 300 mg BID SHARIF Administration Hydroxyzine HCl 25 mg 02/10/24 21:14 02/11/24 00:01 Hydroxyzine Hcl 25 Mg Tablet PO 25 mg Q6H PRN Administration anxiety Lisinopril 20 mg 02/11/24 09:00 02/11/24 00:01 Lisinopril 20 Mg Tablet PO 20 mg DAILY SHARIF Administration Protocol Risperidone 3 mg 02/10/24 21:15 02/10/24 21:59 Risperidone 3 Mg Tablet PO 3 mg BEDTIME SHARIF Administration Discontinued Medications Generic Name Dose Route Start Last Admin Trade Name Nicol PRN Reason Stop Dose Admin Lorazepam 2 mg 02/10/24 23:55 02/11/24 00:01 Lorazepam 1 Mg Tablet PO 02/10/24 23:56 2 mg ONCE ONE Administration Medical Decision Making Medical Decision Making [facility] Narrative: Patient with depression and substance abuse cocaine and fentanyl will get care team involved for evaluation and placement patient has had previous labs done on 01/09/2024 were stable Lab Data [facility] Lab Attestation statement: I reviewed the patient's lab results. Labs: Lab Results 02/10/24 Range/Units 19:01 Urine Color Yellow Urine Appearance Clear Urine pH 7.5 (5.0-9.0) Ur Specific [place] 1.020 (1.005-1.025) Urine Protein Negative (Neg-Trace) mg/dL Urine Glucose (UA) Negative (Negative) mg/dL Urine Ketones Negative (Negative) mg/dL Urine Blood Negative (Negative) Urine Nitrite Negative (Negative) Ur Leukocyte Esterase Negative (Negative) Urine Opiates Screen POSITIVE H (Not Detect) Ur Buprenorphine Scrn Not Detected (Not Detect) ng/mL Ur Oxycodone Screen Not Detected (Not Detect) ng/mL Urine Methadone Screen Positive H (Not Detect) ng/mL Urine Fentanyl Screen POSITIVE H (Not Detect) Ur Barbiturates Screen Not Detected (Not Detect) Ur Phencyclidine Scrn Not Detected (Not Detect) Ur Amphetamines Screen Not Detected (Not Detect) U Benzodiazepines Scrn Not Detected (Not Detect) Urine Cocaine Screen POSITIVE H (Not Detect) U Marijuana (THC) Screen Not Detected (Not Detect) Discharge Plan Discharge Clinical Impression: MDD (major depressive disorder), recurrent severe, without psychosis, Cocaine intoxication Patient Disposition: Still a Patient Prescriptions: No Action cyclobenzaprine 10 mg tablet 10 mg PO BEDTIME clonidine HCl 0.1 mg tablet 0.1 mg PO BID risperidone 3 mg tablet 3 mg PO BEDTIME pantoprazole 20 mg tablet,delayed release (DR/EC) 20 mg PO QAM ibuprofen 400 mg tablet 400 - 800 mg PO Q8H PRN (Reason: moderate pain) gabapentin 300 mg capsule 300 mg PO BID hydroxyzine HCl 25 mg tablet 25 mg PO Q6H PRN (Reason: anxiety) lisinopril 40 mg tablet 20 mg PO DAILY melatonin 5 mg tablet 5 - 10 mg PO BEDTIME PRN (Reason: insomnia) Interventions: [place]-Suicide Risk Severity Scale Last Done: 02/10/24 18:45 Print Language: Arabic
[2024-02-11] MEDS: Omeprazole 20 MG CAPSULE.DR PO (05:59)
--- NOTE | 2024-02-11 06:38 | PC.NURSE ---
Patient slept through the night, no distress observed/reported, meds and meals compliant, care consult ordered/pending evaluation, patient is looking for help detox help, no behavior and safety concerns, VSS, will continue to monitor
[2024-02-11 08:02] LABS: MANUAL DIFF FLAG NO
[2024-02-11 08:03] LABS: Basophils Percent Auto 0.7 % (0-2); Eosinophils Absolute Auto 0.1 X10*3/uL (0.0-0.4); Eosinophils Percent Auto 1.2 % (0-4); Hematocrit 39.8 % (42.0-52.0); Hemoglobin 12.9 g/dl (14.0-18.0); Imm Gran Abs Auto 0.01 X10*3/uL (0.00-0.03); Imm Gran Pct Auto 0.2 % (0.0-0.4); Lymphocytes Absolute Auto 0.7 X10*3/uL (1.2-4.9); Mean Corpuscular HGB Conc 32.4 g/dl (31.0-36.0); Mean Corpuscular Hemoglobin 26.8 pg (27.0-33.0); Mean Corpuscular Volume 82.6 fL (80.0-98.0); Mean Platelet Volume 8.2 fL (9.4-12.4); Monocytes Absolute Auto 0.5 X10*3/uL (0.1-1.2); Monocytes Percent Auto 11.3 % (2-11); Neutrophils Absolute Auto 2.8 x10*3/uL (2.0-8.3); Neutrophils Percent Auto 69.6 % (45-73); Platelet Count 304 X10*3/uL (160-400); Red Blood Count 4.82 X10*6/uL (4.60-5.80); Red Cell Distribution Width 13.9 % (11.0-16.0); White Blood Count 4.1 X10*3/uL (4.8-10.8)
[2024-02-11 08:08] VITALS: BP 139/86; PULSE 86; RESP 18; TEMP 36.3; O2SAT 98
[2024-02-11 08:14] VITALS: PULSE 86
--- NOTE | 2024-02-11 08:15 | PC.NURSE ---
pt no longer hypertensive s/p medication administration by previous RN. vss and up to date. labs obtained/sent to lab by [facility]. COWS = 6 at this time. pt currently waiting to have addiction medicine consult completed so he can be started on methadone. pt otherwise offers no complaints. has no pain aside from diffuse body discomfort from withdrawal. respirations even/unlabored. plan of care ongoing.
[2024-02-11 08:19] LABS: Alanine Aminotransferase 288 U/L (0-40); Albumin Level 4.1 g/dL (3.5-5.0); Alkaline Phosphatase 94 U/L (39-117); Anion Gap 11 (12-20); Aspartate Amino Transferase 274 U/L (5-37); Bilirubin Total 0.6 mg/dL (0.0-1.0); Blood Urea Nitrogen 13 mg/dL (9-16); Calcium 9.1 mg/dL (8.4-10.2); Carbon Dioxide 28 mmol/L (22-29); Chloride 100 mmol/L (96-108); Creatinine Clr Calc Pharmacy 93.4; Estimated Glomerular Filt Rate > 60; Ethanol < 10 mg/dL; Glucose Random 91 mg/dL (60-115); Potassium 3.6 mmol/L (3.3-5.1); Sodium 135 mmol/L (135-145); Total Protein 7.8 g/dL (6.5-8.0)
[2024-02-11] MEDS: cloNIDine HCL 0.1 MG TABLET PO ×2 (08:35→20:17)
[2024-02-11] MEDS: Gabapentin 300 MG CAPSULE PO ×2 (08:35→20:20)
--- NOTE | 2024-02-11 09:37 | MHC.RECOVRN ---
Met with pt in [facility] after pt requesting methadone to address withdrawal symptoms. Pt had met with CARE Team and is currently a dual dx bedsearch. Pt sitting on lounge chair, appears sedated, does not appear to be experiencing withdrawal. Pt reports he had been in recovery for 3 years and had a recurrence approx 1.5 months ago. Pt reports he had been on methadone and tapered off approx 5 months ago. Pt reports he has been living at a sober house in [place], through [facility], for 1 year. Pts UDS positive for opiates, methadone, fentanyl, and cocaine. Pt reports he has been using 2 bags heroin/fentanyl, IV, x 1.5 months. Pt reports he was feeling withdrawal yesterday and someone on the bus gave him methadone, 130 mg. Pt took the 130 mg. Pt is not interested in restarting and being connected to an OTP, is only interested in methadone to address withdrawal symptoms. Pt currently denies withdrawal symptoms. Educated pt on ability to provide methadone for withdrawal, pt encouraged to notify RN when symptoms emerge. Pt denies other questions or concerns for t/w.
[2024-02-11] MEDS: methADONE HCl 20 MG/2 ML ORAL.CONC PO (16:11)
--- NOTE | 2024-02-11 16:12 | PC.NURSE ---
methadone administered per provider. pt having lab work completed at this time. pt waiting to have ultrasound completed at this time. plan of care ongoing. call herrera placed within reach.
--- NOTE | 2024-02-11 16:13 | PC.NURSE ---
methadone administered per provider. pt having lab work completed at this time. pt waiting to have ultrasound completed at this time. plan of care ongoing.
--- NOTE | 2024-02-11 17:54 | PC.NURSE ---
pt being transported to ultrasound w/ pod tech and security at this time.
[2024-02-11 18:19] VITALS: BP 126/96; PULSE 74; RESP 14; TEMP 36.3; O2SAT 100
[2024-02-11] MEDS: Melatonin 3 MG TABLET 9 MG PO (20:16)
[2024-02-11] MEDS: Cyclobenzaprine HCl 10 MG TABLET PO (20:16)
[2024-02-11 20:17] VITALS: BP 135/84
[2024-02-11] MEDS: risperiDONE 3 MG TABLET PO (20:17)
[2024-02-11 20:21] VITALS: BP 135/84; PULSE 71; RESP 16; TEMP 37.1; O2SAT 97
[2024-02-12] MEDS: Omeprazole 20 MG CAPSULE.DR PO (06:04)
[2024-02-12 06:08] VITALS: BP 152/98; PULSE 69; RESP 17; TEMP 36.8; O2SAT 99
--- NOTE | 2024-02-12 06:08 | PC.NURSE ---
Patient slept through the night, no distress observed/reported, meds and meals compliant, 15 minutes safety check, no behavior and safety concerns, disposition per care team is sec-12 inpatient bed search, will continue to monitor
[2024-02-12 08:13] VITALS: BP 132/84
[2024-02-12] MEDS: lisinopriL 20 MG TABLET PO (08:13)
[2024-02-12] MEDS: cloNIDine HCL 0.1 MG TABLET PO ×2 (08:13→20:17)
[2024-02-12] MEDS: methADONE HCl 20 MG/2 ML ORAL.CONC PO (08:13)
[2024-02-12] MEDS: Gabapentin 300 MG CAPSULE PO ×2 (08:13→20:18)
[2024-02-12 08:19] VITALS: BP 132/84; PULSE 74; RESP 16
--- NOTE | 2024-02-12 13:27 | PC.NURSE ---
calm and cooperative, pleasant, wants to be admitted, polite, asking for a private room and will get one when an admission goes upstairs, snacking on food and drink
[2024-02-12 16:41] VITALS: BP 151/96; PULSE 78; RESP 16; TEMP 36.7; O2SAT 99
[2024-02-12 17:24] VITALS: BP 142/88; PULSE 92; RESP 16; TEMP 36.6; O2SAT 98
[2024-02-12 18:25] VITALS: BMI 30.3
--- NOTE | 2024-02-12 18:28 | PC.ADMIT ---
Sudhir arrived via wheelchair from [facility]. He is alert, oriented x4 and cooperative. He complied with skin/safety check. His skin check is only remarkable for some reddened areas around first toes of both feet. this is where I inject . He signed a CV with Bar Abdul NP. He self presented to [facility], seeking help for my cocaine use problem its making me feel like I dont want to be alive anymore . Sudhir states he was sober for 3 years and just recently started using again, around the time he broke up with his girlfriend. He has a strong desire to get clean . He decided this was the plan over the weekend and considered it a sign that he happened to go [facility] the first time in a while and his ex girlfriend was there. He currently denies any urges to harm self or others and any visual or perceptual disturbances. He is not a smoker. His tox screen in the ED was positive for cocaine, fentanyl, methadone (which he was started on in the ED-20mg). He desires to meet with addiction services. He states his only health issue is high blood pressure. He has been on this unit recently. He was oriented to unit and routine. Sudhir is currently on 15 minute safety checks.
[2024-02-12 20:00] VITALS: BP 154/90; PULSE 85; RESP 16; TEMP 36.7; O2SAT 96
[2024-02-12] MEDS: Melatonin 3 MG TABLET 9 MG PO (20:17)
[2024-02-12] MEDS: hydrOXYzine HCL 25 MG TABLET PO (20:18)
[2024-02-12] MEDS: risperiDONE 3 MG TABLET PO (20:18)
[2024-02-12] MEDS: Cyclobenzaprine HCl 10 MG TABLET PO (20:18)
[2024-02-13 07:00] VITALS: BMI 29.9
[2024-02-13] MEDS: methADONE HCl 20 MG/2 ML ORAL.CONC PO (07:38)
[2024-02-13 08:00] VITALS: BP 148/89; PULSE 73; TEMP 36.9; O2SAT 98
[2024-02-13] MEDS: cloNIDine HCL 0.1 MG TABLET PO ×2 (08:28→20:12)
[2024-02-13] MEDS: Gabapentin 300 MG CAPSULE PO (08:28)
[2024-02-13] MEDS: Omeprazole 20 MG CAPSULE.DR PO (08:28)
[2024-02-13] MEDS: lisinopriL 20 MG TABLET PO (08:29)
[2024-02-13 08:54] LABS: Estimated Average Glucose 108 mg/dL; Hemoglobin A1C 120.8329 umol/L; Hemoglobin A1c % 5.4 % (<6.0); Total Hemoglobin (HGBA1C) 3429.9654 umol/L
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
[2024-02-13 09:07] LABS: Cholesterol 109 mg/dL (<200); HDL Cholesterol 39 mg/dL (>40); LDL Cholesterol Calculated 58 mg/dL (<100); Magnesium 1.9 mg/dL (1.6-2.6); Triglycerides 62 mg/dL (<150)
[2024-02-13 09:36] LABS: Folate 10.1 ng/mL (> or = 4.0); Vitamin B12 908 pg/mL (200-900)
[2024-02-13 09:53] LABS: Thyroid Stimulating Hormone 3.79 uIU/mL (0.32-4.0)
[2024-02-13] MEDS: hydrOXYzine HCL 25 MG TABLET PO (17:37)
[2024-02-13 18:59] LABS: HCV Log PCR 6.08 Log IU/mL (NOT DETECTED); HepC Viral Load 1200000 IU/mL (NOT DETECTED)
[2024-02-13 20:00] VITALS: BP 150/85; PULSE 79; RESP 16; TEMP 36.8; O2SAT 99
[2024-02-13] MEDS: Cyclobenzaprine HCl 10 MG TABLET PO (20:11)
[2024-02-13] MEDS: Gabapentin 400 MG CAPSULE PO (20:11)
[2024-02-13] MEDS: risperiDONE 3 MG TABLET PO (20:11)
[2024-02-13 20:12] VITALS: BP 150/85
[2024-02-13] MEDS: Melatonin 3 MG TABLET 9 MG PO (20:12)
[2024-02-13] MEDS: Acetaminophen 325 MG TABLET 650 MG PO (21:51)
[2024-02-14] MEDS: Omeprazole 20 MG CAPSULE.DR PO (07:08)
[2024-02-14] MEDS: methADONE HCl 20 MG/2 ML ORAL.CONC 10 MG PO (07:57)
[2024-02-14 08:00] VITALS: BP 137/88; PULSE 86; RESP 16; TEMP 36.9; O2SAT 98
[2024-02-14] MEDS: Acetaminophen 325 MG TABLET 650 MG PO ×2 (08:33→20:24)
[2024-02-14] MEDS: hydrOXYzine HCL 25 MG TABLET PO (08:33)
[2024-02-14] MEDS: Gabapentin 400 MG CAPSULE PO ×2 (08:33→20:26)
[2024-02-14 08:34] VITALS: BP 137/88
[2024-02-14] MEDS: lisinopriL 20 MG TABLET PO (08:34)
[2024-02-14] MEDS: cloNIDine HCL 0.1 MG TABLET PO ×2 (08:34→20:26)
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
[2024-02-14 20:00] VITALS: BP 127/69; PULSE 68; TEMP 36.4; O2SAT 100
[2024-02-14] MEDS: Cyclobenzaprine HCl 10 MG TABLET PO (20:25)
[2024-02-14 20:26] VITALS: BP 127/69
[2024-02-14] MEDS: risperiDONE 3 MG TABLET PO (20:26)
[2024-02-15] MEDS: Omeprazole 20 MG CAPSULE.DR PO (07:05)
[2024-02-15] MEDS: methADONE HCl 20 MG/2 ML ORAL.CONC 10 MG PO (07:55)
[2024-02-15] MEDS: Gabapentin 400 MG CAPSULE PO ×2 (08:27→20:59)
[2024-02-15] MEDS: cloNIDine HCL 0.1 MG TABLET PO ×2 (08:28→20:59)
[2024-02-15] MEDS: lisinopriL 20 MG TABLET PO (08:28)
[2024-02-15 08:30] VITALS: BP 122/65; PULSE 70; RESP 18; TEMP 36.6; O2SAT 99
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
[2024-02-15] MEDS: Acetaminophen 325 MG TABLET 650 MG PO (14:58)
[2024-02-15 20:00] VITALS: BP 131/89; PULSE 75; O2SAT 98
[2024-02-15 20:59] VITALS: BP 131/89
[2024-02-15] MEDS: Melatonin 3 MG TABLET 9 MG PO (20:59)
[2024-02-15] MEDS: Cyclobenzaprine HCl 10 MG TABLET PO (21:00)
[2024-02-15] MEDS: risperiDONE 3 MG TABLET PO (21:00)
[2024-02-16] MEDS: traZODone HCL 50 MG TABLET PO (00:03)
[2024-02-16] MEDS: Acetaminophen 325 MG TABLET 650 MG PO ×2 (00:03→21:02)
[2024-02-16] MEDS: Omeprazole 20 MG CAPSULE.DR PO (06:58)
[2024-02-16] MEDS: methADONE HCl 20 MG/2 ML ORAL.CONC 10 MG PO (07:45)
[2024-02-16] MEDS: cloNIDine HCL 0.1 MG TABLET PO ×2 (08:23→21:00)
[2024-02-16] MEDS: Gabapentin 400 MG CAPSULE PO ×2 (08:24→21:00)
[2024-02-16] MEDS: lisinopriL 20 MG TABLET PO (08:24)
[2024-02-16 08:30] VITALS: BP 144/73; PULSE 74; RESP 18; TEMP 37.1; O2SAT 100
--- NOTE | 2024-02-16 09:19 | P.PNPSI_ITS ---
Subjective Subjective Date of Service: 02/16/24 Reason For Visit: Schizoaffective disorder,polysubstance use disorde Subjective Notes: Conditional Voluntary Interim History: Patient was seen and discussed in rounds today. Records and plans were reviewed. He continues to be stable and is looking forward to discharge tomorrow. Eating and sleeping adequately. No complaints of depression. No SI. No side effects reported. He is social and interactive. No changes were made today Review of Systems Review of Systems Yes all other systems are reviewed and are negative Mental Status Exam Mental Status Exam Narrative: In today's visit he is alert, oriented and pleasant. Normal speech. Moderate eye contact. Appropriate affect. No signs of psychosis. No AVH. Able to move all limbs. No gait abnormalities. Cognitively intact. Judgment is intact Diagnostics Vital Signs (24Hr): Vital Signs - 24 hr 02/15/24 20:00 02/15/24 20:59 02/16/24 08:30 Temperature 98.7 F Pulse Rate 75 74 Respiratory Rate 18 Blood Pressure 131/89 131/89 144/73 H Pulse Oximetry 98 100 Oxygen Delivery Method Room Air Room Air BMI result Body Mass Index 29.9 Labs 02/11/24 07:54 02/11/24 07:54 Imaging Radiology Impressions: ITS Impressions Abdomen Ultrasound 02/11/24 17:50 IMPRESSION: Unremarkable right upper quadrant ultrasound. Electronically signed by: Neli Souza MD 02/11/2024 07:16 PM [facility] Medications Medications Current Medications Acetaminophen (Acetaminophen 325 Mg Tablet) 650 mg PO Q6H PRN PRN Reason: Headache/Pain Mild Scale (1-3) Last Admin: 02/16/24 00:03 Dose: 650 mg Al Hydroxide/Mg Hydroxide (Magnesium Hydrox/Alum Hydrox 30 Ml Oral.Susp) 30 ml PO Q6H PRN PRN Reason: Heartburn/Nausea Clonidine HCl (Clonidine Hcl 0.1 Mg Tablet) 0.1 mg PO BID [facility]; Protocol Last Admin: 02/16/24 08:23 Dose: 0.1 mg Cyclobenzaprine HCl (Cyclobenzaprine Hcl 10 Mg Tablet) 10 mg PO BEDTIME [facility] Last Admin: 02/15/24 21:00 Dose: 10 mg Gabapentin (Gabapentin 400 Mg Capsule) 400 mg PO BID [facility] Last Admin: 02/16/24 08:24 Dose: 400 mg Hydroxyzine HCl (Hydroxyzine Hcl 25 Mg Tablet) 25 mg PO Q6H PRN PRN Reason: anxiety Last Admin: 02/14/24 08:33 Dose: 25 mg Hydroxyzine HCl (Hydroxyzine Hcl 25 Mg Tablet) 25 mg PO Q6H PRN PRN Reason: Anxiety Lisinopril (Lisinopril 20 Mg Tablet) 20 mg PO DAILY [facility]; Protocol Last Admin: 02/16/24 08:24 Dose: 20 mg Magnesium Hydroxide (Milk Of Magnesia 30 Ml Oral.Susp) 30 ml PO DAILY PRN PRN Reason: Constipation Melatonin (Melatonin 3 Mg Tablet) 9 mg PO BEDTIME PRN PRN Reason: insomnia Last Admin: 02/15/24 20:59 Dose: 9 mg Methadone HCl (Methadone Hcl 20 Mg/2 Ml Oral.Conc) 10 mg PO DAILY [facility] Last Admin: 02/16/24 08:26 Dose: Not Given Nicotine (Nicotine 21 Mg Patch.Td24) 21 mg TRANSDERMA DAILY PRN PRN Reason: nicotine cravings Nicotine Polacrilex (Nicotine Polacrilex 2 Mg Gum) 4 mg BUCCAL Q2H PRN PRN Reason: Nicotine Cravings Omeprazole (Omeprazole 20 Mg Capsule.Dr) 20 mg PO DAILY@0630 [facility] Last Admin: 02/16/24 06:58 Dose: 20 mg Risperidone (Risperidone 3 Mg Tablet) 3 mg PO BEDTIME [facility] Last Admin: 02/15/24 21:00 Dose: 3 mg Risperidone (Risperidone 0.5 Mg Tablet) 0.5 mg PO Q4H PRN PRN Reason: anxiety/agitation Trazodone HCl (Trazodone Hcl 50 Mg Tablet) 50 mg PO BEDTIME MRX1 PRN PRN Reason: Insomnia Last Admin: 02/16/24 00:03 Dose: 50 mg Allergies Allergies Allergy/AdvReac Type Severity Reaction Status Date / Time No Known Allergies Allergy Verified 02/10/24 18:44 [No Known Allergies*] Assessment & Plan Assessment & Plan (1) Schizoaffective disorder, depressive type: Status: Acute Code(s): F25.1 - Schizoaffective disorder, depressive type (2) PTSD (post-traumatic stress disorder): Status: Acute Code(s): F43.10 - Post-traumatic stress disorder, unspecified (3) Opioid use disorder: Status: Acute Code(s): F11.90 - Opioid use, unspecified, uncomplicated (4) Cocaine use disorder: Status: Acute Code(s): F14.10 - Cocaine abuse, uncomplicated Plan Patient is a 48-year-old male with history of schizoaffective disorder, depressed type, PTSD, cocaine and fentanyl use disorder, [place] s/p cocaine use, past gang affiliation/incarceration, who presents for worsening depression with SI in the face of brief relapse. Patient reports after he last left about a month ago, he had remained sober, living back at his sober house (peers were sober there as well and no longer using on the side). Patient said that however, he met up with someone relapsed for 3-5 days using IV fentanyl and cocaine. He continued on his Risperdal and remains without any AVH or paranoid thinking (in the past paranoia about assassins, aliens, girlfriend cheating on him), however with relapse, he got depressed, very upset with himself and developed SI. Patient went to a police superintendent in the community who knows him well and brought him to the ED. denies any alcohol use; wants to continue medications. Formulation/clinical reasoning: Patient decompensated due to relapse with IV cocaine/opioids; has remained on Risperdal which has kept psychotic symptoms at [place]. Says SI is resolving. Will continue home medications which have seemed effective. Discussed MAT. Patient does not want to be on methadone or Suboxone; he would like to be on naltrexone and then Vivitrol. He understands that this will not be able to happened during this admission since he is on a methadone taper Hospital course: 02/13 patient improving; mood is better, no SI, remains without any AVH. Feels that he is increasingly stable and will likely be able to discharge back to his sober care home next week. Signed a 3 day notes -while patient is doing better, he remains in a fragile state and will benefit from a few more days of stabilization 02/14:Continue current regimen and plans. Plan Three day notice Q 15 minute checks -methadone taper; Continue Risperdal 3 mg q.h.s. Continue Risperdal 0.5 mg p.r.n. Continue Cyclobenzaprine 10 mg q.h.s. Continue Lisinopril 20 mg daily Continue Omeprazole 20 mg daily Continue Gabapentin 400 mg b.i.d. Continue Clonidine 0.1 mg b.i.d. Reason for continued inpatient stay Substantial Risk for: med/psych decompensation Time Spent With Patient Time: Total time managing care of this patient today ____ minutes.
[2024-02-16 19:44] VITALS: BP 114/67; PULSE 74; RESP 16; TEMP 36.8; O2SAT 100
[2024-02-16] MEDS: Melatonin 3 MG TABLET 9 MG PO (21:00)
[2024-02-16] MEDS: Cyclobenzaprine HCl 10 MG TABLET PO (21:00)
[2024-02-16] MEDS: hydrOXYzine HCL 25 MG TABLET PO (21:01)
[2024-02-16] MEDS: risperiDONE 3 MG TABLET PO (21:01)
[2024-02-17 08:00] VITALS: BP 151/91; PULSE 89; RESP 16; TEMP 36.9; O2SAT 99
[2024-02-17] MEDS: methADONE HCl 20 MG/2 ML ORAL.CONC 10 MG PO (08:02)
[2024-02-17] MEDS: Gabapentin 400 MG CAPSULE PO (09:02)
[2024-02-17] MEDS: lisinopriL 20 MG TABLET PO (09:02)
[2024-02-17] MEDS: cloNIDine HCL 0.1 MG TABLET PO (09:02)
--- NOTE | 2024-02-17 09:22 | PM.PSYDC ---
DS: Providers Provider Date of Service: 02/17/24 Date of admission: 02/12/24 14:03 Date of discharge: 02/17/24 Primary care physician: [facility] Attending physician on admission: Tyler De Santiago Attending physician on discharge: Tyler De Santiago DS: Diagnosis Discharge Diagnosis (1) Schizoaffective disorder, depressive type: Status: Acute (2) PTSD (post-traumatic stress disorder): Status: Acute (3) Opioid use disorder: Status: Acute (4) Cocaine use disorder: Status: Acute DS: Medications Discharge Medications Home Medications: Previous Rx's ?Medication ?Instructions ?Recorded clonidine HCl 0.1 mg tablet 0.1 mg PO BID 30 days #60 tabs 02/17/24 cyclobenzaprine 10 mg tablet 10 mg PO BEDTIME 30 days #30 tabs 02/17/24 gabapentin 400 mg capsule 400 mg PO BID 30 days #60 caps 02/17/24 hydroxyzine HCl 25 mg tablet 25 mg PO Q6H PRN anxiety 30 days 02/17/24 #60 tabs lisinopril 20 mg tablet 20 mg PO DAILY 30 days #30 tabs 02/17/24 melatonin 10 mg tablet 10 mg PO BEDTIME PRN sleep 30 days 02/17/24 #30 tabs pantoprazole 20 mg tablet,delayed 20 mg PO QAM 30 days #30 tabs 02/17/24 release risperidone 3 mg tablet 3 mg PO BEDTIME 30 days #30 tabs 02/17/24 Mental Status Exam Mental Status Exam Narrative: Pt is alert and oriented; behavior is cooperative, friendly and calm; patient is not in distress; dressed in casual attire, well groomed; mood is described as good and affect congruent; eye contact appropriate; Speech is normal rate, volume and prosody and not pressured; no psychomotor agitation/retardation present; thought process is organized and goal directed; Thought content is on tx; otherwise pertinent to relevant topics and without any delusional content, paranoid ideations or grandiosity; denies any SI/HI. No AVH and no evidence of perceptual disturbance. Patients insight and judgment are intact. Data Data Completed and Pending Completed studies during hospitalization [Text1]: 02/10/24 02/11/24 02/11/24 19:01 07:54 16:17 WBC 4.1 L RBC 4.82 Hgb 12.9 L Hct 39.8 L MCV 82.6 MCH 26.8 L MCHC 32.4 RDW 13.9 Plt Count 304 MPV 8.2 L Immature Gran % (Auto) 0.2 Neut % (Auto) 69.6 Lymph % (Auto) 17.0 L [place] % (Auto) 11.3 H Eos % (Auto) 1.2 Baso % (Auto) 0.7 Lymph # (Auto) 0.7 L [place] # (Auto) 0.5 Eos # (Auto) 0.1 Baso # (Auto) 0.0 Abs Immat Gran (auto) 0.01 Absolute Neuts (auto) 2.8 Absolute Nucleated RBC 0.000 Nucleated RBC % (auto) 0.0 Sodium 135 Potassium 3.6 Chloride 100 Carbon Dioxide 28 Anion Gap 11 L BUN 13 Creatinine 0.91 Estim Creat Clear Calc 93.4 Estimated GFR > 60 Random Glucose 91 Estimat Average Glucose Hemoglobin A1c % Calcium 9.1 Magnesium Total Bilirubin 0.6 AST 274 H ALT 288 H Alkaline Phosphatase 94 Total Protein 7.8 Albumin 4.1 Triglycerides Cholesterol LDL Cholesterol, Calc HDL Cholesterol Vitamin B12 Folate TSH Free T4 Urine Color Yellow Urine Appearance Clear Urine pH 7.5 Ur Specific [place] 1.020 Urine Protein Negative Urine Glucose (UA) Negative Urine Ketones Negative Urine Blood Negative Urine Nitrite Negative Ur Leukocyte Esterase Negative Urine Opiates Screen POSITIVE H Ur Buprenorphine Scrn Not Detected Ur Oxycodone Screen Not Detected Urine Methadone Screen Positive H Urine Fentanyl Screen POSITIVE H Ur Barbiturates Screen Not Detected Ur Phencyclidine Scrn Not Detected Ur Amphetamines Screen Not Detected U Benzodiazepines Scrn Not Detected Urine Cocaine Screen POSITIVE H U Marijuana (THC) Screen Not Detected Ethyl Alcohol < 10 Hep C Viral Load [id number] H Hep C Viral Load Log 6.08 H 02/13/24 07:52 WBC RBC Hgb Hct MCV MCH MCHC RDW Plt Count MPV Immature Gran % (Auto) Neut % (Auto) Lymph % (Auto) [place] % (Auto) Eos % (Auto) Baso % (Auto) Lymph # (Auto) [place] # (Auto) Eos # (Auto) Baso # (Auto) Abs Immat Gran (auto) Absolute Neuts (auto) Absolute Nucleated RBC Nucleated RBC % (auto) Sodium Potassium Chloride Carbon Dioxide Anion Gap BUN Creatinine Estim Creat Clear Calc Estimated GFR Random Glucose Estimat Average Glucose 108 Hemoglobin A1c % 5.4 Calcium Magnesium 1.9 Total Bilirubin AST ALT Alkaline Phosphatase Total Protein Albumin Triglycerides 62 Cholesterol 109 LDL Cholesterol, Calc 58 HDL Cholesterol 39 L Vitamin B12 908 H Folate 10.1 TSH 3.79 Free T4 1.00 Urine Color Urine Appearance Urine pH Ur Specific [place] Urine Protein Urine Glucose (UA) Urine Ketones Urine Blood Urine Nitrite Ur Leukocyte Esterase Urine Opiates Screen Ur Buprenorphine Scrn Ur Oxycodone Screen Urine Methadone Screen Urine Fentanyl Screen Ur Barbiturates Screen Ur Phencyclidine Scrn Ur Amphetamines Screen U Benzodiazepines Scrn Urine Cocaine Screen U Marijuana (THC) Screen Ethyl Alcohol Hep C Viral Load Hep C Viral Load Log Imaging Diagnostic Imaging Impressions Abdomen Ultrasound 02/11/24 17:50 IMPRESSION: Unremarkable right upper quadrant ultrasound. Electronically signed by: Neli Souza MD 02/11/2024 07:16 PM [facility] DS: Summary Hospital Course Hospital Course: Patient is a 48-year-old male with history of schizoaffective disorder, depressed type, PTSD, cocaine and fentanyl use disorder, [place] s/p cocaine use, past gang affiliation/incarceration, who presents for worsening depression with SI in the face of brief relapse. Patient reports after he last left about a month ago, he had remained sober, living back at his sober house (peers were sober there as well and no longer using on the side). Patient said that however, he met up with someone relapsed for 3-5 days using IV fentanyl and cocaine. He continued on his Risperdal and remains without any AVH or paranoid thinking (in the past paranoia about assassins, aliens, girlfriend cheating on him), however with relapse, he got depressed, very upset with himself and developed SI. Patient went to a police communications dispatcher in the community who knows him well and brought him to the ED. denies any alcohol use; wants to continue medications. Hospital course: Patient decompensated due to relapse with IV cocaine/opioids; has remained on Risperdal which has kept psychotic symptoms at [place]. On admission, patient was cooperative and calm though with anxiety. No AH and he reported SI is resolving. He agreed to continue with home medications since he had remained on them and they are effective. Discussed MAT. Patient does not want to be on methadone or Suboxone; he would like to be on naltrexone and then Vivitrol. He understands that this will not be able to happened during this admission since he is on a methadone taper. Patient soon stabilized and his depression abated. Patient remained without any SI or AVH. He said his mood was good and he was eating and sleeping well. Patient remained in good behavioral control throughout his time in the unit. He is appropriate with peers and staff and engaged in treatment. He signed a 3 day notice feeling ready to discharge back to his sober living home. Patient already has established providers in the community. While he remains vulnerable to relapse and decompensation, this is a chronic struggle with which he continues to work on. He is future oriented and optimistic about remaining stable and sober. Patient is not in imminent risk for harm to self and appropriate to return to the community for treatment. His request for discharge honored. Time spent discussing smoking cessation with patient: 3 to 10 minutes Status at Discharge Functional status at discharge: independent ambulation Overall status at discharge: patient is back to baseline Time Spent with Patient Time attestation: Total time managing care of this patient today __40__ minutes. Time spent: Greater than 30 minutes Specific discharge activities: Met with patient; discussed with team, charting, prescription Discharge Plan Discharge Anticipated Discharge Date/Time: 02/17/24 11:30 Patient Disposition: Home, Self-Care Discharge Diagnosis: schizoaffective disorder, depressed type Referrals: Suboxone: Dalia Klein ([facility]) [Other] - 02/20/24 1:30 pm [facility] [Primary Care Provider] - 03/05/24 10:45 am (Your appointment is with Lara Headley ) Discharge Medications: Continued cyclobenzaprine 10 mg tablet 10 mg PO BEDTIME 30 Days Qty: 30 1RF clonidine HCl 0.1 mg tablet 0.1 mg PO BID 30 Days Qty: 60 1RF lisinopril 20 mg tablet 20 mg PO DAILY 30 Days Qty: 30 1RF risperidone 3 mg tablet 3 mg PO BEDTIME 30 Days Qty: 30 1RF pantoprazole 20 mg tablet,delayed release (DR/EC) 20 mg PO QAM 30 Days Qty: 30 1RF hydroxyzine HCl 25 mg tablet 25 mg PO Q6H PRN (Reason: anxiety) 30 Days Qty: 60 1RF Changed gabapentin 400 mg capsule 400 mg PO BID 30 Days Qty: 60 1RF melatonin 10 mg tablet 10 mg PO BEDTIME PRN (Reason: sleep) 30 Days Qty: 30 1RF Discontinued ibuprofen 400 mg tablet 400 - 800 mg PO Q8H PRN (Reason: moderate pain) Discharge Orders: Discharge Order (Routine); Ordered 02/17/24 Ordered By: Tyler De Santiago Diet: Regular diet Activity on Discharge: As tolerated Stand Alone Forms: Patient Portal Discharge page, Community Support Print Language: Polish Care Plan Goals: Maintain mood and safe behaviors Take medications as prescribed Continue to pursue sobriety Practice coping skills Continue with outpatient providers and reach out to them as needed Health Concerns: Mood stability and behaviors Sobriety GERD Hypertension Plan of Treatment: Follow up with your PCP, psychiatric provider and other outpatient providers regarding above concerns Take medications as prescribed Assessment: Risk assessment at time of discharge:? Patient was interviewed prior to discharge and found to be fully oriented and without any SI or HI. Patient has improved insight and judgment and wants to continue treatment. Patient is not in imminent risk of harm to self or others and has a safety plan that includes presenting to the closest ER or calling 911 if feeling unsafe.? Patient has been observed closely by nursing and unit staff throughout admission; patient has not engaged in any behaviors that suggest dangerousness to self or others and has demonstrated appropriate behaviors and impulse control
[2024-02-17] MEDS: Naloxone HCl Nasal TAKE HOME 4 MG SPRAY 8 MG NOSTRILALT (09:33)
== END 2024-02-17 11:20 | disposition home or self-care (01) | DRG 750 ==
LOC: HO.ED 02-11 08:04 → HO.PM5 02-12 14:21
PROVIDERS: Internal Medicine; Admitting Provider Clinical Nurse Specialist Psychiatric/Mental Health, Adult; Emergency Provider Emergency Medicine Emergency Medical Services; Visit Provider Psychiatry & Neurology Psychiatry
DX: F25.1 Schizoaffective disorder, depressive type (principal); R45.851 Suicidal ideations; F14.10 Cocaine abuse, uncomplicated; F11.20 Opioid dependence, uncomplicated; F43.10 Post-traumatic stress disorder, unspecified; Z87.891 Personal history of nicotine dependence; Z79.899 Other long term (current) drug therapy
CPT/HCPCS: 36415; 76705; 80053; 80061; 80307; 81003; 82607; 82746; 83036; 83735; 84439; 84443; 85025; 87522; 93005; 99285

== ENCOUNTER → 2024-02-11 09:48 | Outpatient (BNV) | payer MEDICAID, SELFPAY | PROVIDERS: Emergency Provider Emergency Medicine Emergency Medical Services; Visit Provider Internal Medicine | DX: R94.31 Abnormal electrocardiogram [ECG] [EKG] (principal) | CPT/HCPCS: 93010 ==

== ENCOUNTER → 2024-02-12 14:03 | Outpatient (BNV) | payer OTHER, SELFPAY | PROVIDERS: Admitting Provider Clinical Nurse Specialist Psychiatric/Mental Health, Adult; Emergency Provider Emergency Medicine Emergency Medical Services; Visit Provider Psychiatry & Neurology Psychiatry | DX: F25.1 Schizoaffective disorder, depressive type (principal); F14.10 Cocaine abuse, uncomplicated; F11.90 Opioid use, unspecified, uncomplicated; F43.11 Post-traumatic stress disorder, acute | CPT/HCPCS: 99231; 99232 ==

== ENCOUNTER 2024-02-24 06:26 | Inpatient (IN) | payer OTHER, SELFPAY ==
[2024-02-24 06:30] VITALS: BP 170/90; PULSE 75; O2SAT 97
--- NOTE | 2024-02-24 06:32 | ED.PSYCH ---
HPI - Psych General Stated Complaint: ETOH/SI, HI Time Seen by Provider: 02/24/24 06:29 Source: patient and EMS Mode of arrival: EMS Limitations: no limitations History of Present Illness ED Provider: Dr. Chapis Clark HPI Narrative: Patient comes to the emergency room via ambulance complaining of suicidal ideation. Patient admits that he has been using alcohol and drugs. Patient made vague HI remarks to EMS but when I spoke to the patient he denied it. Patient states that he stopped taking his medications 3 days ago because he started using drugs again. Patient requesting to be seen by the care team. Related Data Previous Rx's ?Medication ?Instructions ?Recorded clonidine HCl 0.1 mg tablet 0.1 mg PO BID 30 days #60 tabs 02/17/24 cyclobenzaprine 10 mg tablet 10 mg PO BEDTIME 30 days #30 tabs 02/17/24 gabapentin 400 mg capsule 400 mg PO BID 30 days #60 caps 02/17/24 hydroxyzine HCl 25 mg tablet 25 mg PO Q6H PRN anxiety 30 days 02/17/24 #60 tabs lisinopril 20 mg tablet 20 mg PO DAILY 30 days #30 tabs 02/17/24 melatonin 10 mg tablet 10 mg PO BEDTIME PRN sleep 30 days 02/17/24 #30 tabs pantoprazole 20 mg tablet,delayed 20 mg PO QAM 30 days #30 tabs 02/17/24 release risperidone 3 mg tablet 3 mg PO BEDTIME 30 days #30 tabs 02/17/24 Allergies Allergy/AdvReac Type Severity Reaction Status Date / Time No Known Allergies Allergy Verified 02/10/24 18:44 [No Known Allergies*] Review of Systems Review of Systems: Constitutional : No Weight loss, No Fever, No Chills, No Night Sweats, No Fatigue, No Malaise ENT/Mouth : No Hearing loss, No Ear Pain, No Nasal Congestion, No Sinus Pain, No Hoarseness, No sore throat, No Rhinorrhea, No Swallowing Difficulty Eyes: No Eye Pain, No Swelling, No Redness, No Foreign Body, No Discharge, No Vision Changes Cardiovascular : No Chest Pain, No SOB, No Dyspnea on Exertion, No Orthopnea, No Edema, No Palpitations Respiratory : No Cough, No Sputum, No Wheezing, No Smoke Exposure, No Dyspnea Gastrointestinal : No Nausea, No Vomiting, No Diarrhea, No Constipation, No abdominal Pain, No Hematochezia, No Melena Genitourinary : no irregular bleeding, No Dysuria, No Urinary Frequency, No Hematuria, No Urinary Incontinence, No Urgency, No Flank Pain, No Urinary Flow Changes, No Hesitancy Musculoskeletal : No joint pain, No Myalgias, No Joint Swelling Skin : No Skin Lesions, No rash Neuro : No Weakness, No Numbness, No Paresthesias, No Loss of Consciousness, No Dizziness, No Headache Psych : Complaining of anxiety, depression, suicidal ideation, admits to polysubstance abuse Heme/Lymph: No Bruising, No Bleeding,No Lymphadenopathy Endocrine : No Polyuria, No Polydipsia, No Temperature Intolerance [facility] Past Medical History Medical History Opioid use disorder Polysubstance abuse NSTEMI (non-ST elevated myocardial infarction) PTSD (post-traumatic stress disorder) Schizoaffective disorder, depressive type Cocaine use disorder Polysubstance use disorder Social History Social History Household Members: None Housing: Apartment Do you presently have visiting nurse or other home services: No Unable to assess alcohol history related to: Unknown Alcohol intake: current Alcohol intake frequency: 3 or more drinks per day Alcohol type: hard liquor Patient Tobacco Use Status: Former Tobacco user e-Cigarette/Vaping Use: Never Used Second Hand Smoke Exposure: No Substance Use Type: Crack/Cocaine service: No Sexual orientation: Straight/Heterosexual Physical Exam Const: Other: Appearance: Alert. Oriented X3. No acute distress. Eyes: Pupils equal, round and reactive to light. ENT: Pharynx normal. Neck: Normal inspection. Neck supple. No lymph nodes noted. No crepitus CVS: Normal heart rate and rhythm. Pulses normal. Normal S1 and S2 Respiratory: No respiratory distress. Breath sounds normal. No Wheezing. No rales Abdomen: Soft and nontender. No rigidity. No distention. Skin: Skin warm and dry. Normal skin color. Normal skin turgor. Extremities: No lower extremity edema. No Lacerations. No Rash Neuro: Oriented X 3. No motor deficit. No sensory deficit. Moving all extremities. No slurred speech. CN 2 through 12 grossly intact Psych: calm, cooperative, normal affect Course Course Course Narrative: All of patient's labs pending Care team consult pending Physician observation started at 06:34 Patient on a Section 12 Sign-out given to my colleague Dr. Bray Discharge Plan Discharge Clinical Impression: Polysubstance abuse, Suicidal ideation Patient Disposition: Still a Patient Prescriptions: No Action cyclobenzaprine 10 mg tablet 10 mg PO BEDTIME 30 Days Qty: 30 1RF clonidine HCl 0.1 mg tablet 0.1 mg PO BID 30 Days Qty: 60 1RF lisinopril 20 mg tablet 20 mg PO DAILY 30 Days Qty: 30 1RF gabapentin 400 mg capsule 400 mg PO BID 30 Days Qty: 60 1RF risperidone 3 mg tablet 3 mg PO BEDTIME 30 Days Qty: 30 1RF pantoprazole 20 mg tablet,delayed release (DR/EC) 20 mg PO QAM 30 Days Qty: 30 1RF hydroxyzine HCl 25 mg tablet 25 mg PO Q6H PRN (Reason: anxiety) 30 Days Qty: 60 1RF melatonin 10 mg tablet 10 mg PO BEDTIME PRN (Reason: sleep) 30 Days Qty: 30 1RF Print Language: Greek
[2024-02-24 06:43] VITALS: BP 146/97; PULSE 65; RESP 16; TEMP 37.1; O2SAT 99
[2024-02-24 06:59] LABS: MANUAL DIFF FLAG NO
[2024-02-24 07:02] LABS: Basophils Percent Auto 0.6 % (0-2); Eosinophils Absolute Auto 0.1 X10*3/uL (0.0-0.4); Eosinophils Percent Auto 2.7 % (0-4); Hematocrit 36.2 % (42.0-52.0); Hemoglobin 11.8 g/dl (14.0-18.0); Imm Gran Abs Auto 0.01 X10*3/uL (0.00-0.03); Imm Gran Pct Auto 0.2 % (0.0-0.4); Lymphocytes Percent Auto 41.8 % (20-40); Mean Corpuscular HGB Conc 32.6 g/dl (31.0-36.0); Mean Corpuscular Hemoglobin 26.7 pg (27.0-33.0); Mean Corpuscular Volume 81.9 fL (80.0-98.0); Mean Platelet Volume 8.4 fL (9.4-12.4); Monocytes Absolute Auto 0.5 X10*3/uL (0.1-1.2); Monocytes Percent Auto 11.2 % (2-11); Neutrophils Absolute Auto 2.1 x10*3/uL (2.0-8.3); Neutrophils Percent Auto 43.5 % (45-73); Platelet Count 341 X10*3/uL (160-400); Red Blood Count 4.42 X10*6/uL (4.60-5.80); Red Cell Distribution Width 14.4 % (11.0-16.0); White Blood Count 4.8 X10*3/uL (4.8-10.8)
[2024-02-24 07:19] VITALS: BMI 23.5
[2024-02-24 07:27] LABS: Alanine Aminotransferase 88 U/L (0-40); Albumin Level 3.9 g/dL (3.5-5.0); Alkaline Phosphatase 89 U/L (39-117); Anion Gap 13 (12-20); Aspartate Amino Transferase 36 U/L (5-37); Bilirubin Direct 0.3 mg/dL (0.0-0.5); Bilirubin Total 0.8 mg/dL (0.0-1.0); Blood Urea Nitrogen 18 mg/dL (9-16); Carbon Dioxide 24 mmol/L (22-29); Chloride 103 mmol/L (96-108); Creatinine Clr Calc Pharmacy 101.8; Estimated Glomerular Filt Rate > 60; Ethanol < 10 mg/dL; Glucose Random 86 mg/dL (60-115); Potassium 3.9 mmol/L (3.3-5.1); Sodium 136 mmol/L (135-145); Total Protein 7.3 g/dL (6.5-8.0)
--- NOTE | 2024-02-24 08:09 | MHC.EDTECH ---
1:1 sitter at bedside, pt provided breakfast tray, ate 100%, vitals in progress and all needs met at this time
[2024-02-24 08:10] VITALS: BP 147/86; PULSE 61; RESP 16; O2SAT 100
[2024-02-24 08:39] LABS: Amphetamine Screen Urine Not Detected (Not Detect); Barbiturates, Urine Not Detected (Not Detect); Benzodiazepines Screen Urine Not Detected (Not Detect); Buprenorphine Scr Not Detected (Not Detect); Cannabinoid Screen Urine Not Detected (Not Detect); Cocaine Screen Urine POSITIVE (Not Detect); Fentanyl, urine POSITIVE (Not Detect); Methadone Screen, Urine Not Detected (Not Detect); Opiate Screen Urine POSITIVE (Not Detect); Oxycodone Screen Urine Not Detected (Not Detect); Phencyclidine Screen Urine Not Detected (Not Detect)
--- NOTE | 2024-02-24 08:59 | ECG_ITS ---
Test Reason : COCAINE USE' Blood Pressure : / mmHG Vent. Rate : 072 BPM Atrial Rate : 072 BPM P-R Int : 162 ms QRS Dur : 096 ms QT Int : 382 ms P-R-T Axes : 065 -04 -05 degrees QTc Int : 418 ms Normal sinus rhythm Normal ECG When compared with ECG of 11-FEB-2024 09:48, No significant change was found Referred By: Chapis Clark Electronically Signed By:GABY GROVER MD
[2024-02-24 09:07] LABS: Appearance Urine Clear; Color Urine Yellow; Glucose Urine UA Negative (Negative); Leukocyte Esterase Urine Negative (Negative); Nitrite Urine Negative (Negative); Urine Blood Negative (Negative); Urine Ketones Trace mg/dL (Negative); Urine Protein Negative (Neg-Trace)
[2024-02-24] MEDS: methADONE HCl 20 MG/2 ML ORAL.CONC 40 MG PO (09:11)
[2024-02-24 10:29] VITALS: BP 148/90; PULSE 68; RESP 18; O2SAT 97
--- NOTE | 2024-02-24 14:44 | PC.NURSE ---
Assumed care of patient at 1439, patient alert and oriented, calm and cooperative at this time. Continue with plan of care for care team shira.
--- NOTE | 2024-02-24 15:01 | PC.NURSE ---
RE: Med rec patient verified meds with this RN
[2024-02-24 22:20] VITALS: BP 149/100; PULSE 65; RESP 17; TEMP 36.7; O2SAT 100
--- NOTE | 2024-02-24 22:42 | PHA.MEDREC ---
Pharmacy Consult ? Medication Reconciliation Pharmacy has reviewed the medication reconciliation done by nursing.
[2024-02-24] MEDS: Cyclobenzaprine HCl 10 MG TABLET PO (22:45)
[2024-02-24] MEDS: Melatonin 3 MG TABLET 9 MG PO (22:45)
[2024-02-24] MEDS: hydrOXYzine HCL 25 MG TABLET PO (22:46)
[2024-02-24] MEDS: risperiDONE 3 MG TABLET PO (22:46)
[2024-02-24] MEDS: cloNIDine HCL 0.1 MG TABLET PO (22:46)
[2024-02-24] MEDS: Gabapentin 400 MG CAPSULE PO (22:46)
--- NOTE | 2024-02-24 23:00 | PC.NURSE ---
meds verified by MD and medicated per apr. pt calm/cooperative, requested gingerale/sandwich. resting comfortably in room. MD aware of BP. nad.
[2024-02-24 23:46] VITALS: RESP 16
[2024-02-25] MEDS: Omeprazole 20 MG CAPSULE.DR PO (07:13)
[2024-02-25 10:25] VITALS: BP 127/77; PULSE 88; RESP 18; TEMP 37; O2SAT 99
[2024-02-25 10:27] VITALS: BP 127/77
[2024-02-25] MEDS: lisinopriL 20 MG TABLET PO (10:27)
[2024-02-25 10:28] VITALS: BP 127/77
[2024-02-25] MEDS: cloNIDine HCL 0.1 MG TABLET PO ×2 (10:28→20:09)
[2024-02-25] MEDS: Gabapentin 400 MG CAPSULE PO ×2 (10:28→20:10)
[2024-02-25] MEDS: methADONE HCl 20 MG/2 ML ORAL.CONC 40 MG PO (11:37)
[2024-02-25 13:22] VITALS: BP 135/80; PULSE 64; RESP 14; TEMP 36.4; O2SAT 98
[2024-02-25 14:31] VITALS: BP 119/75; PULSE 67; RESP 18; TEMP 36.4; O2SAT 100
[2024-02-25 14:53] VITALS: BMI 30.3
--- NOTE | 2024-02-25 16:49 | PC.ADMIT ---
Sudhir was admitted to on 02/25/24 at 1426 on a CV, signed a 3 day shortly after, for treatment of Unspecified Depressive Disorder and Cocaine/Opiate Use Disorder. He reports he came in Saturday at 0630 after going to the police feeling suicidal, after smoking crack and using IV Fentanyl. He reports that he is currently living in a sober living apartment in [place] and would like to return there as soon as possible. Upon admission assessment, he is calm and cooperative. His thought process is clear and linear, focus is intact and he makes good eye contact. He denies SI/HI/AVH at present and reports being able to come to staff if these thoughts occur. His mood is depressed and his affect is congruent with his mood. He reports a significant unintentional weight loss of about 30 pounds within the last few months due to using drugs and not eating. He reports intermittent difficulty sleeping at night but reports he had a good night sleep Saturday night. He reports drinking a lot about 3 days ago but reports he does not feel like he is in withdrawal. He reports smoking cocaine, using IV Fenatnyl and intermittently smoking Marijuana. His tox screen was positive for Opiates, Fentanyl and Cocaine. He reports having goals for 2024. 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 I want to become a better man and live a better life. He offers no physical complaints. His skin check revealed bilateral dry cracked heels, and a dry patch on his right lower quadrant of his abdomen, Tyler De Santiago MD made aware. He was placed on 15 minute checks for safety.
--- NOTE | 2024-02-25 18:55 | PC.NURSE ---
Sudhir declined to sign releases of information at this time.
[2024-02-25 19:52] VITALS: BP 128/85; PULSE 59; RESP 16; TEMP 36.2; O2SAT 100
[2024-02-25] MEDS: Cyclobenzaprine HCl 10 MG TABLET PO (20:09)
[2024-02-25] MEDS: Melatonin 3 MG TABLET 9 MG PO (20:10)
[2024-02-25] MEDS: risperiDONE 3 MG TABLET PO (20:10)
[2024-02-25] MEDS: Acetaminophen 325 MG TABLET 650 MG PO (20:10)
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
[2024-02-26] MEDS: Omeprazole 20 MG CAPSULE.DR PO (06:55)
[2024-02-26 07:50] VITALS: BP 129/76; PULSE 65; RESP 14; TEMP 36.9; O2SAT 99
[2024-02-26] MEDS: methADONE HCl 20 MG/2 ML ORAL.CONC PO (08:35)
[2024-02-26 09:12] VITALS: BP 129/76
[2024-02-26] MEDS: Gabapentin 400 MG CAPSULE PO ×2 (09:12→20:23)
[2024-02-26] MEDS: cloNIDine HCL 0.1 MG TABLET PO ×2 (09:12→20:23)
[2024-02-26] MEDS: lisinopriL 20 MG TABLET PO (09:12)
--- NOTE | 2024-02-26 13:16 | MHC.CLN ---
NUTRITION REVIEW OF WEIGHT HX SHOWS -17% WEIGHT LOSS X 4 MONTHS. PATIENT ATTRIBUTES WEIGHT LOSS TO NOT EATING AND DRUG USE. ADDING ENSURE BID TO PROMOTE NUTRITIONAL INTAKE. SUPPLEMENT PROVIDES 700 KCALS. 40 G PROTEIN
[2024-02-26] MEDS: hydrOXYzine HCL 25 MG TABLET PO (14:08)
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
--- NOTE | 2024-02-26 16:20 | P.PNPSI_ITS ---
Subjective Subjective Date of Service: 02/26/24 Reason For Visit: depression / SI Interim History: Met with patient; discussed with team Patient is friendly, calm and cooperative. He reports that he is doing well and when asked if all better he said hell ya. No SI at all and patient is future oriented, very much wanting to make his Suboxone appointment tomorrow. Discussed his struggles substance abuse and relapse and he says he very much wants to stay sober and is hoping Suboxone will be a part of that. Denies any AVH, denies any paranoid thinking and reports that he is sleeping well. Patient has been in good behavioral and impulse control throughout his time in the unit, appropriate with peers and staff. He is very much hoping to discharge tomorrow saying that was what was discussed with primary team with whom he will discuss this further tomorrow. Mental Status Exam Mental Status Exam Narrative: Pt is alert and oriented; behavior is cooperative, friendly and calm; patient is not in distress; dressed in casual attire and well groomed; mood is described as good and affect congruent; eye contact appropriate; Speech is normal rate, volume and prosody and not pressured; no psychomotor agitation/retardation present; thought process is organized and goal directed; Thought content is on tx; otherwise pertinent to relevant topics and without any delusional content, paranoid ideations or grandiosity; denies any SI/HI. Denies AVH and There is no evidence of perceptual disturbance. Patients insight and judgment are intact. Diagnostics Vital Signs (24Hr): Vital Signs - 24 hr 02/25/24 19:52 02/26/24 07:50 02/26/24 09:12 Temperature 97.2 F 98.4 F Pulse Rate 59 65 Respiratory Rate 16 14 Blood Pressure 128/85 129/76 129/76 Pulse Oximetry 100 99 Oxygen Delivery Method Room Air Room Air 02/26/24 09:12 Temperature Pulse Rate Respiratory Rate Blood Pressure 129/76 Pulse Oximetry Oxygen Delivery Method BMI result Body Mass Index 30.3 Labs 02/24/24 06:54 02/24/24 06:54 Medications Medications Current Medications Acetaminophen (Acetaminophen 325 Mg Tablet) 650 mg PO Q6H PRN PRN Reason: Headache/Pain Mild Scale (1-3) Last Admin: 02/25/24 20:10 Dose: 650 mg Al Hydroxide/Mg Hydroxide (Magnesium Hydrox/Alum Hydrox 30 Ml Oral.Susp) 30 ml PO Q6H PRN PRN Reason: Heartburn/Nausea Amoxicillin/Clavulanate Potassium (Amoxicillin/Potassium Clav 500 Mg Tablet) 500 mg PO TID [facility] Stop: 03/04/24 09:01 Buprenorphine/Naloxone (Buprenorphine/Naloxone 8/2 Mg Film) 2 film SUBLINGUAL DAILY [facility] Clonidine HCl (Clonidine Hcl 0.1 Mg Tablet) 0.1 mg PO BID [facility]; Protocol Last Admin: 02/26/24 09:12 Dose: 0.1 mg Cyclobenzaprine HCl (Cyclobenzaprine Hcl 10 Mg Tablet) 10 mg PO BEDTIME [facility] Last Admin: 02/25/24 20:09 Dose: 10 mg Gabapentin (Gabapentin 400 Mg Capsule) 400 mg PO BID [facility] Last Admin: 02/26/24 09:12 Dose: 400 mg Hydroxyzine HCl (Hydroxyzine Hcl 25 Mg Tablet) 25 mg PO Q6H PRN PRN Reason: Anxiety Last Admin: 02/26/24 14:08 Dose: 25 mg Lactic Acid (Ammonium Lactate 12 % Lotion 226 Gm Bottle) 1 appl TOPICAL BID PRN; Protocol PRN Reason: Dry Skin Lisinopril (Lisinopril 20 Mg Tablet) 20 mg PO DAILY [facility]; Protocol Last Admin: 02/26/24 09:12 Dose: 20 mg Magnesium Hydroxide (Milk Of Magnesia 30 Ml Oral.Susp) 30 ml PO DAILY PRN PRN Reason: Constipation Melatonin (Melatonin 3 Mg Tablet) 9 mg PO BEDTIME PRN PRN Reason: sleep Last Admin: 02/25/24 20:10 Dose: 9 mg Nicotine Polacrilex (Nicotine Polacrilex 2 Mg Gum) 4 mg BUCCAL Q2H PRN PRN Reason: Nicotine Cravings Omeprazole (Omeprazole 20 Mg Capsule.Dr) 20 mg PO DAILY@0630 [facility] Last Admin: 02/26/24 06:55 Dose: 20 mg Risperidone (Risperidone 3 Mg Tablet) 3 mg PO BEDTIME [facility] Last Admin: 02/25/24 20:10 Dose: 3 mg Trazodone HCl (Trazodone Hcl 50 Mg Tablet) 50 mg PO BEDTIME MRX1 PRN PRN Reason: Insomnia Allergies Allergies Allergy/AdvReac Type Severity Reaction Status Date / Time No Known Allergies Allergy Verified 02/24/24 07:19 [No Known Allergies*] Assessment & Plan Assessment & Plan (1) PTSD (post-traumatic stress disorder): Status: Acute Code(s): F43.10 - Post-traumatic stress disorder, unspecified (2) Cocaine use disorder: Status: Acute Code(s): F14.10 - Cocaine abuse, uncomplicated (3) Opioid use disorder: Status: Acute Code(s): F11.90 - Opioid use, unspecified, uncomplicated Plan methadone 40 today, 20 tomorrow. then restart suboxone 16 mg daily. otherwise continue prior regimen. pt requesting discharge, stating he has a suboxone appointment afternoon. 02/26/24 Patient is friendly, calm and cooperative. He reports that he is doing well and when asked if all better he said hell ya. No SI at all and patient is future oriented, very much wanting to make his Suboxone appointment tomorrow. Discussed his struggles substance abuse and relapse and he says he very much wants to stay sober and is hoping Suboxone will be a part of that. Denies any AVH, denies any paranoid thinking and reports that he is sleeping well. Patient has been in good behavioral and impulse control throughout his time in the unit, appropriate with peers and staff. He is very much hoping to discharge tomorrow saying that was what was discussed with primary team with whom he will discuss this further tomorrow. Patient educated on: diagnosis, medication risk/benefits and substance abuse Informed Consent: understands Reason for continued inpatient stay Substantial Risk for: stable for discharge Time Spent With Patient Time: Total time managing care of this patient today ____ minutes.
[2024-02-26] MEDS: Amoxicillin/Potassium Clav 500 MG TABLET PO ×2 (16:37→20:23)
[2024-02-26 19:58] VITALS: BP 131/78; PULSE 76; RESP 16; TEMP 36.6; O2SAT 98
[2024-02-26] MEDS: Cyclobenzaprine HCl 10 MG TABLET PO (20:23)
[2024-02-26] MEDS: risperiDONE 3 MG TABLET PO (20:23)
[2024-02-26] MEDS: Melatonin 3 MG TABLET 9 MG PO (20:27)
[2024-02-27 07:50] VITALS: BP 136/65; PULSE 77; RESP 14; TEMP 36.9; O2SAT 98
[2024-02-27 08:46] VITALS: BP 110/62
[2024-02-27] MEDS: lisinopriL 20 MG TABLET PO (08:46)
[2024-02-27] MEDS: cloNIDine HCL 0.1 MG TABLET PO (08:46)
[2024-02-27] MEDS: Omeprazole 20 MG CAPSULE.DR PO (08:46)
[2024-02-27] MEDS: Amoxicillin/Potassium Clav 500 MG TABLET PO (08:46)
[2024-02-27] MEDS: Buprenorphine/Naloxone 8/2 mg FILM 2 FILM SUBLINGUAL (08:47)
[2024-02-27] MEDS: Gabapentin 400 MG CAPSULE PO (08:47)
--- NOTE | 2024-02-27 10:57 | P.DS_ITS ---
DS: Providers Provider Date of Service: 02/27/24 Date of admission: 02/25/24 12:21 Primary care physician: [facility] DS: Diagnosis Discharge Diagnosis (1) PTSD (post-traumatic stress disorder): Status: Acute (2) Cocaine use disorder: Status: Acute (3) Opioid use disorder: Status: Acute DS: Medications Discharge Medications Home Medications: Home Medications ?Medication ?Instructions ?Recorded ?Confirmed buprenorphine 8 mg-naloxone 2 mg 2 film sublingual DAILY 02/24/24 02/24/24 sublingual film (Suboxone) Previous Rx's ?Medication ?Instructions ?Recorded clonidine HCl 0.1 mg tablet 0.1 mg PO BID 30 days #60 tabs 02/17/24 cyclobenzaprine 10 mg tablet 10 mg PO BEDTIME 30 days #30 tabs 02/17/24 gabapentin 400 mg capsule 400 mg PO BID 30 days #60 caps 02/17/24 hydroxyzine HCl 25 mg tablet 25 mg PO Q6H PRN anxiety 30 days 02/17/24 #60 tabs lisinopril 20 mg tablet 20 mg PO DAILY 30 days #30 tabs 02/17/24 melatonin 10 mg tablet 10 mg PO BEDTIME PRN sleep 30 days 02/17/24 #30 tabs pantoprazole 20 mg tablet,delayed 20 mg PO QAM 30 days #30 tabs 02/17/24 release risperidone 3 mg tablet 3 mg PO BEDTIME 30 days #30 tabs 02/17/24 ammonium lactate 12 % lotion 1 appl topical BID PRN Dry Skin 30 02/27/24 days #225 grams amoxicillin 500 mg-potassium 1 tab PO TID #0 tabs 02/27/24 clavulanate 125 mg tablet Mental Status Exam Mental Status Exam Narrative: In today's visit he is alert, oriented and pleasant. Normal speech. thoughts linear and logical without delusions or paranoia. Moderate eye contact. Appropriate affect. mood good. No signs of psychosis. No SI/SIBI/HI/AVH. Able to move all limbs. No gait abnormalities. Cognitively intact. Judgment is intact Data Data Completed and Pending Completed studies during hospitalization [Text1]: 02/24/24 02/24/24 06:54 08:25 WBC 4.8 RBC 4.42 L Hgb 11.8 L Hct 36.2 L MCV 81.9 MCH 26.7 L MCHC 32.6 RDW 14.4 Plt Count 341 MPV 8.4 L Immature Gran % (Auto) 0.2 Neut % (Auto) 43.5 L Lymph % (Auto) 41.8 H Giles % (Auto) 11.2 H Eos % (Auto) 2.7 Baso % (Auto) 0.6 Lymph # (Auto) 2.0 Giles # (Auto) 0.5 Eos # (Auto) 0.1 Baso # (Auto) 0.0 Abs Immat Gran (auto) 0.01 Absolute Neuts (auto) 2.1 Absolute Nucleated RBC 0.000 Nucleated RBC % (auto) 0.0 Sodium 136 Potassium 3.9 Chloride 103 Carbon Dioxide 24 Anion Gap 13 BUN 18 H Creatinine 0.82 Estim Creat Clear Calc 101.8 Estimated GFR > 60 Random Glucose 86 Calcium 9.0 Magnesium 2.0 Total Bilirubin 0.8 Direct Bilirubin 0.3 AST 36 ALT 88 H Alkaline Phosphatase 89 Total Protein 7.3 Albumin 3.9 Urine Color Yellow Urine Appearance Clear Urine pH 7.0 Ur Specific Craig 1.020 Urine Protein Negative Urine Glucose (UA) Negative Urine Ketones Trace Urine Blood Negative Urine Nitrite Negative Ur Leukocyte Esterase Negative Urine Opiates Screen POSITIVE H Ur Buprenorphine Scrn Not Detected Ur Oxycodone Screen Not Detected Urine Methadone Screen Not Detected Urine Fentanyl Screen POSITIVE H Ur Barbiturates Screen Not Detected Ur Phencyclidine Scrn Not Detected Ur Amphetamines Screen Not Detected U Benzodiazepines Scrn Not Detected Urine Cocaine Screen POSITIVE H U Marijuana (THC) Screen Not Detected Ethyl Alcohol < 10 DS: Summary Hospital Course Hospital Course: 02/24: methadone 40 today, 20 tomorrow. then restart suboxone 16 mg daily. otherwise continue prior regimen. pt requesting discharge, stating he has a suboxone appointment afternoon. 02/26/24: Patient is friendly, calm and cooperative. He reports that he is doing well and when asked if all better he said hell ya. No SI at all and patient is future oriented, very much wanting to make his Suboxone appointment tomorrow. Discussed his struggles substance abuse and relapse and he says he very much w ants to stay sober and is hoping Suboxone will be a part of that. Denies any AVH, denies any paranoid thinking and reports that he is sleeping well. Patient has been in good behavioral and impulse control throughout his time in the unit, appropriate with peers and staff. He is very much hoping to discharge tomorrow saying that was what was discussed with primary team with whom he will discuss this further tomorrow. 1: calm, cooperative, safe. discharged as per plan. to f/u at [facility]. Time Spent with Patient Time attestation: Total time managing care of this patient today __35__ minutes. Discharge Plan Discharge Anticipated Discharge Date/Time: 02/27/24 11:30 Patient Disposition: Home, Self-Care Discharge Diagnosis: PTSD, Chronic Opioid Use Disorder Cocaine Use Disorder Referrals: [facility] [Primary Care Provider] - 1 Week (May use walk in clinic for immediate attention as needed) Discharge Medications: Continued buprenorphine-naloxone [Suboxone] 8-2 mg film 2 film sublingual DAILY cyclobenzaprine 10 mg tablet 10 mg PO BEDTIME 30 Days Qty: 30 1RF clonidine HCl 0.1 mg tablet 0.1 mg PO BID 30 Days Qty: 60 1RF lisinopril 20 mg tablet 20 mg PO DAILY 30 Days Qty: 30 1RF gabapentin 400 mg capsule 400 mg PO BID 30 Days Qty: 60 1RF risperidone 3 mg tablet 3 mg PO BEDTIME 30 Days Qty: 30 1RF pantoprazole 20 mg tablet,delayed release (DR/EC) 20 mg PO QAM 30 Days Qty: 30 1RF hydroxyzine HCl 25 mg tablet 25 mg PO Q6H PRN (Reason: anxiety) 30 Days Qty: 60 1RF melatonin 10 mg tablet 10 mg PO BEDTIME PRN (Reason: sleep) 30 Days Qty: 30 1RF Discharge Orders: Discharge Order (Routine); Ordered 02/27/24 Ordered By: Temo Cooper Diet: Advance to usual diet Activity on Discharge: As tolerated Stand Alone Forms: Patient Portal Discharge page, Community Support Print Language: [place] Verdean Care Plan Goals: remain safe, stable, and sober in the outpatient treatment setting Health Concerns: none Plan of Treatment: take medications as prescribed, attend appointments as scheduled Assessment: not at imminent risk of harm to self or others Discharge Date/Time: 02/27/24 12:12
--- NOTE | 2024-02-27 12:45 | PC.NURSE ---
Patient easily engaged. Full range of affect. Reports mood is stable, denies highs or lows, denies feeling anxious. Reports sadness r/t inability to be with my girl right now. Denies SI/HI plan or intent at this time. Denies perceptual disturbances, no overt psychosis or expressed delusions. Discharge paperwork reviewed with patient reports understanding. Medications reviewed with patient reports understanding. Patient obtained all belongings from [facility]. Crisis numbers provided to patient. Patient boarded [facility].
== END 2024-02-27 12:12 | disposition home or self-care (01) | DRG 755 ==
LOC: HO.ED 14:35 → HO.PADLT16 02-25 12:30
PROVIDERS: Admitting Provider Psychiatry & Neurology Psychiatry; Emergency Provider Emergency Medicine; Visit Provider Psychiatry & Neurology Psychiatry
DX: F43.12 Post-traumatic stress disorder, chronic (principal); R45.851 Suicidal ideations; R45.850 Homicidal ideations; F11.20 Opioid dependence, uncomplicated; Z87.891 Personal history of nicotine dependence; Z79.899 Other long term (current) drug therapy
CPT/HCPCS: 36415; 80048; 80076; 80307; 81003; 83735; 85025; 93005; 99285

== ENCOUNTER → 2024-02-24 08:59 | Outpatient (BNV) | payer MEDICAID, SELFPAY | PROVIDERS: Emergency Provider Emergency Medicine; Visit Provider Internal Medicine Cardiovascular Disease | DX: R45.851 Suicidal ideations (principal); F14.10 Cocaine abuse, uncomplicated | CPT/HCPCS: 93010 ==

== ENCOUNTER → 2024-02-25 12:21 | Outpatient (BNV) | payer OTHER, SELFPAY | PROVIDERS: Admitting Provider Psychiatry & Neurology Psychiatry; Emergency Provider Emergency Medicine; Visit Provider Psychiatry & Neurology Psychiatry | DX: F14.10 Cocaine abuse, uncomplicated (principal); F11.90 Opioid use, unspecified, uncomplicated; F43.11 Post-traumatic stress disorder, acute | CPT/HCPCS: 99232; 99233 ==

== ENCOUNTER → 2024-03-02 08:38 | Outpatient (BNV) | payer OTHER, SELFPAY | PROVIDERS: Emergency Provider Emergency Medicine Emergency Medical Services; PCP Internal Medicine; Visit Provider Social Worker | DX: F14.10 Cocaine abuse, uncomplicated (principal); F19.94 Other psychoactive substance use, unspecified with psychoactive substance-induced mood disorder; F11.90 Opioid use, unspecified, uncomplicated | CPT/HCPCS: 99284 ==

== ENCOUNTER → 2024-03-02 11:51 | Outpatient (BNV) | payer MEDICAID, SELFPAY | PROVIDERS: Emergency Provider Emergency Medicine Emergency Medical Services; PCP Internal Medicine; Visit Provider Internal Medicine | DX: R45.851 Suicidal ideations (principal); F14.10 Cocaine abuse, uncomplicated | CPT/HCPCS: 93010 ==

== ENCOUNTER 2024-03-07 02:57 | Emergency (ER) | payer MEDICAID, SELFPAY ==
--- NOTE | 2024-03-07 | ECG_ITS ---
Test Reason : NIEVEA Blood Pressure : */* mmHG Vent. Rate : 75 BPM Atrial Rate : 75 BPM P-R Int : 154 ms QRS Dur : 100 ms QT Int : 374 ms P-R-T Axes : 29 -22 28 degrees QTcB Int : 417 ms Normal sinus rhythm Moderate voltage criteria for LVH, may be normal variant ( R in aVL , [place] product ) Borderline ECG When compared with ECG of 02-Mar-2024 12:27, No significant change was found Referred By: Generic ED Physician Electronically Signed By: RUBEN EUCEDA
[2024-03-07 03:05] VITALS: BP 146/97; PULSE 75; RESP 18; TEMP 36.9; O2SAT 99; BMI 30.1
[2024-03-07 03:31] VITALS: PULSE 72
[2024-03-07 03:34] LABS: Basophils Percent Auto 0.4 % (0-2); Hematocrit 37.8 % (42.0-52.0); Hemoglobin 12.2 g/dl (14.0-18.0); Imm Gran Abs Auto 0.01 X10*3/uL (0.00-0.03); Imm Gran Pct Auto 0.4 % (0.0-0.4); Lymphocytes Percent Auto 35.6 % (20-40); MANUAL DIFF FLAG NO; Mean Corpuscular HGB Conc 32.3 g/dl (31.0-36.0); Mean Corpuscular Hemoglobin 25.9 pg (27.0-33.0); Mean Corpuscular Volume 80.3 fL (80.0-98.0); Mean Platelet Volume 8.2 fL (9.4-12.4); Monocytes Absolute Auto 0.5 X10*3/uL (0.1-1.2); Neutrophils Absolute Auto 1.3 x10*3/uL (2.0-8.3); Neutrophils Percent Auto 44.6 % (45-73); Platelet Count 273 X10*3/uL (160-400); Red Blood Count 4.71 X10*6/uL (4.60-5.80); Red Cell Distribution Width 14.1 % (11.0-16.0); White Blood Count 2.8 X10*3/uL (4.8-10.8)
[2024-03-07 03:54] LABS: Troponin-I High Sensitivity 5.3 ng/L (<3.5-35.0)
[2024-03-07 03:55] LABS: Alanine Aminotransferase 25 U/L (0-40); Anion Gap 13 (12-20); Aspartate Amino Transferase 35 U/L (5-37); Bilirubin Total 0.3 mg/dL (0.0-1.0); Blood Urea Nitrogen 16 mg/dL (9-16); Carbon Dioxide 25 mmol/L (22-29); Chloride 100 mmol/L (96-108); Creatinine Clr Calc Pharmacy 83.8; Estimated Glomerular Filt Rate > 60; Glucose Random 102 mg/dL (60-115); Potassium 4.5 mmol/L (3.3-5.1); Sodium 133 mmol/L (135-145)
[2024-03-07 04:00] VITALS: BP 141/89; PULSE 69; RESP 22; TEMP 36.6; O2SAT 99
[2024-03-07 04:11] LABS: Alkaline Phosphatase 66 U/L (39-117)
--- NOTE | 2024-03-07 04:22 | ED_ITS ---
HPI - Chest Pain General Chief Complaint: Chest Pain Stated Complaint: CP Time Seen by Provider: 03/07/24 03:24 Source: patient Mode of arrival: ambulatory Limitations: no limitations History of Present Illness ED Provider: HPI narrative: Patient's history of cocaine and opiate use with history of chronic chest pain off and on says that he used cocaine 24 hours ago and pain started about 3 hours ago which is sharp in nature localized to mid chest no radiation of the pain no shortness a breath no diaphoresis no nausea no vomiting also noticed slight palpitation of the time which he had in the past pain is sharp in character Related Data Home Medications ?Medication ?Instructions ?Recorded ?Confirmed buprenorphine 8 mg-naloxone 2 mg 2 film sublingual DAILY 02/24/24 03/02/24 sublingual film (Suboxone) Previous Rx's ?Medication ?Instructions ?Recorded clonidine HCl 0.1 mg tablet 0.1 mg PO BID 30 days #60 tabs 02/17/24 cyclobenzaprine 10 mg tablet 10 mg PO BEDTIME 30 days #30 tabs 02/17/24 gabapentin 400 mg capsule 400 mg PO BID 30 days #60 caps 02/17/24 hydroxyzine HCl 25 mg tablet 25 mg PO Q6H PRN anxiety 30 days 02/17/24 #60 tabs lisinopril 20 mg tablet 20 mg PO DAILY 30 days #30 tabs 02/17/24 melatonin 10 mg tablet 10 mg PO BEDTIME PRN sleep 30 days 02/17/24 #30 tabs pantoprazole 20 mg tablet,delayed 20 mg PO QAM 30 days #30 tabs 02/17/24 release risperidone 3 mg tablet 3 mg PO BEDTIME 30 days #30 tabs 02/17/24 Allergies Allergy/AdvReac Type Severity Reaction Status Date / Time No Known Allergies Allergy Verified 03/07/24 03:08 [No Known Allergies*] Review of Systems 2 Review of Systems: Yes all other systems are reviewed and are negative PMFSH Past Medical History Medical History Suicidal ideation Polysubstance abuse Opioid use disorder Polysubstance abuse NSTEMI (non-ST elevated myocardial infarction) PTSD (post-traumatic stress disorder) Cocaine use disorder Polysubstance use disorder Social History Social History Household Members: None Housing: Apartment Do you presently have visiting nurse or other home services: No Unable to assess alcohol history related to: Unknown Alcohol intake: never Patient Tobacco Use Status: Former Tobacco user Smoked in Last 30 Days: No e-Cigarette/Vaping Use: Never Used Second Hand Smoke Exposure: No Substance Use Type: Crack/Cocaine and Heroin Substance Use Frequency Other:: once a week Advance Directives: No Advance Directives Information Provided: Yes service: No Sexual orientation: Straight/Heterosexual Physical Exam 2 Vital Signs: Vital Signs: Last Vital Signs Temp 97.3 F 03/07/24 06:00 Pulse 63 03/07/24 06:00 Resp 16 03/07/24 06:00 BP 127/79 03/07/24 06:00 Pulse Ox 98 03/07/24 06:00 O2 Del Method Room Air 03/07/24 06:00 BMI result Body Mass Index 30.1 Appearance: Alert. Oriented X3. No acute distress. Eyes: PERRLA, No Nystagmus ENT: Pharynx normal. Oral Mucosa moist Neck: Normal inspection. Neck supple. CVS: Normal heart rate and rhythm. Pulses normal. Respiratory: No respiratory distress. Equal air entry bilateral, no wheezing/rales/rhonchi Abdomen: Soft and nontender. Bowel sounds are present, no mass palpable, no CVA tenderness Skin: Skin warm and dry. Normal skin color. Normal skin turgor. Extremities: No lower extremity edema. No calf tenderness Neuro: Oriented X 3. No motor deficit. No sensory deficit.No cerebellar signs , cranial nerves II-XII intact Medications Administered Discontinued Medications Generic Name Dose Route Start Last Admin Trade Name Nicol PRN Reason Stop Dose Admin Ibuprofen 600 mg 03/07/24 04:28 03/07/24 05:06 Ibuprofen 600 Mg Tablet PO 03/07/24 04:29 600 mg ONCE ONE Administration Medical Decision Making Medical Decision Making [facility] Narrative: Patient has atypical chest pain which he has off and on for long time previous echo at workup was negative patient's said he did not use cocaine for last 24 hours patient had some palpitation episode likely has chest wall pain unlikely cardiac discharge patient home advised to stop using cocaine Differential Diagnosis Differential Diagnoses: The differential diagnosis associated with the presentation includes ACS/musculoskeletal pain/pleurisy Lab Data [facility] Lab Attestation statement: I reviewed the patient's lab results. 03/07/24 03:27 03/07/24 03:27 Labs: Lab Results 03/07/24 Range/Units 03:27 WBC 2.8 L (4.8-10.8) X10*3/uL RBC 4.71 (4.60-5.80) X10*6/uL Hgb 12.2 L (14.0-18.0) g/dl Hct 37.8 L (42.0-52.0) % MCV 80.3 (80.0-98.0) fL MCH 25.9 L (27.0-33.0) pg MCHC 32.3 (31.0-36.0) g/dl RDW 14.1 (11.0-16.0) % Plt Count 273 (160-400) X10*3/uL MPV 8.2 L (9.4-12.4) fL Immature Gran % (Auto) 0.4 (0.0-0.4) % Neut % (Auto) 44.6 L (45-73) % Lymph % (Auto) 35.6 (20-40) % [place] % (Auto) 19.0 H (2-11) % Eos % (Auto) 0.0 (0-4) % Baso % (Auto) 0.4 (0-2) % Lymph # (Auto) 1.0 L (1.2-4.9) X10*3/uL [place] # (Auto) 0.5 (0.1-1.2) X10*3/uL Eos # (Auto) 0.0 (0.0-0.4) X10*3/uL Baso # (Auto) 0.0 (0.0-0.2) X10*3/uL Abs Immat Gran (auto) 0.01 (0.00-0.03) X10*3/uL Absolute Neuts (auto) 1.3 L (2.0-8.3) x10*3/uL Absolute Nucleated RBC 0.000 (0.0-0.012) X10*3/uL Nucleated RBC % (auto) 0.0 (0.0-0.2) /100WBC Sodium 133 L (135-145) mmol/L Potassium 4.5 (3.3-5.1) mmol/L Chloride 100 (96-108) mmol/L Carbon Dioxide 25 (22-29) mmol/L Anion Gap 13 (12-20) BUN 16 (9-16) mg/dL Creatinine 0.98 (0.5-1.4) mg/dL Estim Creat Clear Calc 83.8 Estimated GFR > 60 Random Glucose 102 (60-115) mg/dL Calcium 9.0 D (8.4-10.2) mg/dL Total Bilirubin 0.3 (0.0-1.0) mg/dL AST 35 (5-37) U/L ALT 25 (0-40) U/L Alkaline Phosphatase 66 (39-117) U/L Troponin I High Sens 5.3 D (<3.5-35.0) ng/L Total Protein 8.0 (6.5-8.0) g/dL Albumin 4.0 (3.5-5.0) g/dL Independent Interpretation I performed an independent interpretation of an: EKG Interpretation: Normal sinus rhythm heart rate 75 beats per minute LVH no acute ST-T changes no acute ischemia Discharge Plan Discharge Clinical Impression: Atypical chest pain Patient Disposition: Home, Self-Care Instructions: Chest Wall Pain (ED) Additional Instructions: Take Tylenol/Motrin for pain Stop using cocaine Prescriptions: No Action buprenorphine-naloxone [Suboxone] 8-2 mg film 2 film sublingual DAILY cyclobenzaprine 10 mg tablet 10 mg PO BEDTIME 30 Days Qty: 30 1RF clonidine HCl 0.1 mg tablet 0.1 mg PO BID 30 Days Qty: 60 1RF lisinopril 20 mg tablet 20 mg PO DAILY 30 Days Qty: 30 1RF gabapentin 400 mg capsule 400 mg PO BID 30 Days Qty: 60 1RF risperidone 3 mg tablet 3 mg PO BEDTIME 30 Days Qty: 30 1RF pantoprazole 20 mg tablet,delayed release (DR/EC) 20 mg PO QAM 30 Days Qty: 30 1RF hydroxyzine HCl 25 mg tablet 25 mg PO Q6H PRN (Reason: anxiety) 30 Days Qty: 60 1RF melatonin 10 mg tablet 10 mg PO BEDTIME PRN (Reason: sleep) 30 Days Qty: 30 1RF Print Language: [place]an
[2024-03-07] MEDS: Ibuprofen 600 MG TABLET PO (05:06)
[2024-03-07 05:08] VITALS: BP 134/86; PULSE 71; RESP 16; TEMP 36.3; O2SAT 100
[2024-03-07 06:00] VITALS: BP 127/79; PULSE 63; RESP 16; TEMP 36.3; O2SAT 98
[2024-03-07 08:02] VITALS: BP 127/79; PULSE 63; RESP 16; TEMP 36.3; O2SAT 98
== END 2024-03-07 08:02 | disposition home or self-care (01) ==
PROVIDERS: Emergency Provider Internal Medicine; PCP Internal Medicine
DX: R07.89 Other chest pain (principal); F11.20 Opioid dependence, uncomplicated; F19.10 Other psychoactive substance abuse, uncomplicated; F25.1 Schizoaffective disorder, depressive type; F43.10 Post-traumatic stress disorder, unspecified; Z87.891 Personal history of nicotine dependence; Z79.899 Other long term (current) drug therapy
CPT/HCPCS: 36415; 80053; 84484; 85025; 93005; 99283; 99285

== ENCOUNTER → 2024-03-07 03:06 | Outpatient (BNV) | payer MEDICAID, SELFPAY | PROVIDERS: Emergency Provider Internal Medicine; PCP Internal Medicine; Visit Provider Internal Medicine | DX: R07.9 Chest pain, unspecified (principal) | CPT/HCPCS: 93010 ==

== ENCOUNTER 2024-03-10 05:52 | Emergency (ER) | payer MEDICAID, SELFPAY ==
[2024-03-10 06:06] VITALS: BP 140/92; BP 149/100; PULSE 67; PULSE 69; RESP 18; TEMP 36.7; O2SAT 100; O2SAT 97; BMI 20.6
[2024-03-10 06:24] LABS: MANUAL DIFF FLAG NO
[2024-03-10 06:26] LABS: Basophils Percent Auto 0.3 % (0-2); Eosinophils Percent Auto 0.6 % (0-4); Hematocrit 36.2 % (42.0-52.0); Hemoglobin 11.9 g/dl (14.0-18.0); Imm Gran Abs Auto 0.01 X10*3/uL (0.00-0.03); Imm Gran Pct Auto 0.3 % (0.0-0.4); Lymphocytes Absolute Auto 1.4 X10*3/uL (1.2-4.9); Lymphocytes Percent Auto 40.8 % (20-40); Mean Corpuscular HGB Conc 32.9 g/dl (31.0-36.0); Mean Corpuscular Hemoglobin 26.4 pg (27.0-33.0); Mean Corpuscular Volume 80.3 fL (80.0-98.0); Mean Platelet Volume 8.5 fL (9.4-12.4); Monocytes Absolute Auto 0.6 X10*3/uL (0.1-1.2); Monocytes Percent Auto 16.1 % (2-11); Neutrophils Absolute Auto 1.4 x10*3/uL (2.0-8.3); Neutrophils Percent Auto 41.9 % (45-73); Platelet Count 286 X10*3/uL (160-400); Red Blood Count 4.51 X10*6/uL (4.60-5.80); Red Cell Distribution Width 14.1 % (11.0-16.0); White Blood Count 3.4 X10*3/uL (4.8-10.8)
[2024-03-10 06:42] LABS: Alanine Aminotransferase 19 U/L (0-40); Albumin Level 3.8 g/dL (3.5-5.0); Alkaline Phosphatase 75 U/L (39-117); Anion Gap 11 (12-20); Aspartate Amino Transferase 28 U/L (5-37); Bilirubin Total 0.3 mg/dL (0.0-1.0); Blood Urea Nitrogen 16 mg/dL (9-16); Calcium 8.3 mg/dL (8.4-10.2); Carbon Dioxide 26 mmol/L (22-29); Chloride 105 mmol/L (96-108); Creatinine Clr Calc Pharmacy 84.9; Estimated Glomerular Filt Rate > 60; Ethanol < 10 mg/dL; Glucose Random 96 mg/dL (60-115); Potassium 3.6 mmol/L (3.3-5.1); Sodium 138 mmol/L (135-145); Total Protein 7.1 g/dL (6.5-8.0)
[2024-03-10 07:45] LABS: Appearance Urine Clear; Color Urine Yellow; Glucose Urine UA Negative (Negative); Leukocyte Esterase Urine Negative (Negative); Nitrite Urine Negative (Negative); PH 7.5 (5.0-9.0); Urine Blood Negative (Negative); Urine Ketones Negative (Negative); Urine Protein Negative (Neg-Trace)
--- NOTE | 2024-03-10 08:18 | ED.GENADULT ---
HPI - General Adult General Chief complaint: Psychiatric Symptoms Stated complaint: SI Time Seen by Provider: 03/10/24 07:55 Source: patient Mode of arrival: ambulatory Limitations: no limitations History of Present Illness ED Provider: DR. Olmos HPI narrative: 48-year-old male history of IV drug abuse presented with SI, patient also used street fentanyl last use was yesterday feeling tremors and withdrawal from fentanyl, patient eyes on subonox but can not mix it with the fentanyl asking for methadone. No HI, no hallucination. Last use of fentanyl was last night. Otherwise no CP, no SOB, no abdominal pain. Related Data Home Medications ?Medication ?Instructions ?Recorded ?Confirmed buprenorphine 8 mg-naloxone 2 mg 2 film sublingual DAILY 02/24/24 03/02/24 sublingual film (Suboxone) Previous Rx's ?Medication ?Instructions ?Recorded clonidine HCl 0.1 mg tablet 0.1 mg PO BID 30 days #60 tabs 02/17/24 cyclobenzaprine 10 mg tablet 10 mg PO BEDTIME 30 days #30 tabs 02/17/24 gabapentin 400 mg capsule 400 mg PO BID 30 days #60 caps 02/17/24 hydroxyzine HCl 25 mg tablet 25 mg PO Q6H PRN anxiety 30 days 02/17/24 #60 tabs lisinopril 20 mg tablet 20 mg PO DAILY 30 days #30 tabs 02/17/24 melatonin 10 mg tablet 10 mg PO BEDTIME PRN sleep 30 days 02/17/24 #30 tabs pantoprazole 20 mg tablet,delayed 20 mg PO QAM 30 days #30 tabs 02/17/24 release risperidone 3 mg tablet 3 mg PO BEDTIME 30 days #30 tabs 02/17/24 Allergies Allergy/AdvReac Type Severity Reaction Status Date / Time No Known Allergies Allergy Verified 03/10/24 06:13 [No Known Allergies*] Review of Systems Review of Systems: All other systems are reviewed and are negative Constitutional: Reports as per HPI and Reports no additional constitutional complaints Eyes: Reports as per HPI and Reports no additional eye complaints Reports system reviewed and no additional complaints, except as documented Cardiovascular: Reports as per HPI and Reports no additional cardiovascular complaints Respiratory: Reports as per HPI and Reports no additional respiratory complaints Gastrointestinal: Reports as per HPI and Reports no additional gastrointestinal complaints Genitourinary: Reports no additional female genitourinary complaints Musculoskeletal: Reports no additional musculoskeletal complaints Skin/Breast: Reports system reviewed and no additional complaints, except as docu Psychiatric: Reports no additional psychiatric complaints Endocrine: Reports no additional endocrine complaints Hematologic/Lymphatic: Reports no additional hematologic/lymphatic complaints Allergic/Immunologic: Reports no additional allergic/immunologic complaints Reports system reviewed and no additional complaints, except as documented and Reports Abnormal speech present [facility] Past Medical History Medical History Suicidal ideation Polysubstance abuse Opioid use disorder Polysubstance abuse NSTEMI (non-ST elevated myocardial infarction) PTSD (post-traumatic stress disorder) Cocaine use disorder Polysubstance use disorder Social History Social History Household Members: None Housing: Apartment Do you presently have visiting nurse or other home services: No Unable to assess alcohol history related to: Unknown Alcohol intake: never Patient Tobacco Use Status: Former Tobacco user Smoked in Last 30 Days: Yes e-Cigarette/Vaping Use: Never Used Second Hand Smoke Exposure: No Use of substances other than those prescribed or required for medical reasons: Yes Substance Use Type: Crack/Cocaine, Heroin and Marijuana Substance Use Frequency: Chronic Longstanding Advance Directives: No Advance Directives Information Provided: Yes Do you have a plan to hurt others: No Plan service: No Sexual orientation: Straight/Heterosexual Physical Exam ED Vital Signs: Vital Signs - 24 hr 03/10/24 06:06 Temperature 98.0 F Pulse Rate 69 Respiratory Rate 18 Blood Pressure 149/100 H Pulse Oximetry 100 Oxygen Delivery Method Room Air BMI result Body Mass Index 20.6 Vital signs have been reviewed and appear to be correct. Blood pressure elevated. Heart rate normal. Respiratory rate normal. Temperature normal. Oxygen saturation normal. Appearance: Alert. Oriented X3. No acute distress. Head: Normal external exam. Normocephalic. Atraumatic. No Shin signs noted. No raccoon eyes noted Eyes: PERRLA. EOMI. Conjunctiva and sclera normal. Eyelids normal. ENT: TM's Normal. Pharynx normal. Uvula midline. Moist mucous membranes. No trismus noted. No drooling noted. No muffled voice noted. Neck: Normal inspection. Neck supple. FROM. No adenopathy. Thyroid Normal. No meningeal signs. No neck mass noted. CVS: Normal heart rate and rhythm. Heart sound normal. No murmurs noted. Pulses normal throughout. Respiratory: No respiratory distress. Painless inspiration. Breath sounds normal. No wheezes/rales/rhonchi noted. Chest nontender. No accessory muscle usage noted or decreased air movement noted. Abdomen: Soft and nontender. Bowel sounds normal in all 4 quadrants. No distention noted. No organomegaly noted. No visible injury noted. Back: No CVA tenderness. Full range of motion noted. Skin: Skin warm and dry. Normal skin color. Normal skin turgor. No rashes/lesions/lacerations noted. Extremities: No lower extremity edema. Extremities exhibit normal range of motion. Extremities nontender. Neuro: Oriented X 3. Cranial nerve exam: II-XII are grossly intact No motor deficit. No sensory deficit. Reflexes normal. Patient Orientation: Person, Place, Time and Situation, okay hygiene and grooming. Fair eye contact, attentive, no tics or tremors. Level of Consciousness: Awake, Appropriate and Alert Patient Behavior: Appropriate, Guarded, Cooperative and Anxious Mood Description: Constricted, Blunted and Apprehensive Affect Description: Constricted, Blunted and Apprehensive Patient Cognition Impaired: No Ability to Follow Directions: Excellent Speech Pattern: Clear, Appropriate and Spontaneous Speech, nonpressured, spontaneous with regular rate and rhythm, normal volume and prosody. No dysarthria. Memory Description: Intact, Immediate Intact and Short Term Intact Hallucinations: None Delusions: Not Present Thought Process: Intact Thought Content: positive for Intact, positive SI with no specific plan, denies Homicidal Ideation. Depressive Symptoms: Not present. Judgement and Insight: Limited but adequate. Course Reevaluation(s) Reevaluation #1: Medically cleared, cows score 9 which is a moderate withdrawal will give the minimum of methadone 30 mg in the ED and re-evaluate. Care team evaluation for SI. Time: 08:23 Reevaluation #2: Care team evaluation is appreciated, addiction medicine input is also appreciated patient to be discharged home and managed by outpatient methadone clinic as arranged by addiction medicine. Patient feels safe to be discharged, no SI, no HI. Time: 11:22 Medications Administered Discontinued Medications Generic Name Dose Route Start Last Admin Trade Name Freq PRN Reason Stop Dose Admin Methadone HCl 30 mg 03/10/24 08:25 03/10/24 08:37 Methadone Hcl 20 Mg/2 Ml Oral.Conc PO 03/10/24 08:26 30 mg ONCE ONE Administration Medical Decision Making Differential Diagnosis Differential Diagnoses: The differential diagnosis associated with the presentation includes (SI, HI, hallucination, acute psychosis, severe anemia, electrolyte derangement, withdrawal symptoms.) Admission/Observation Consideration of admission/observation: Escalation of care including admission/observation considered Lab Data MDM Lab Attestation statement: I reviewed the patient's lab results. 03/10/24 06:19 03/10/24 06:19 Labs: Lab Results 03/10/24 03/10/24 Range/Units 06:19 07:37 WBC 3.4 L (4.8-10.8) X10*3/uL RBC 4.51 L (4.60-5.80) X10*6/uL Hgb 11.9 L (14.0-18.0) g/dl Hct 36.2 L (42.0-52.0) % MCV 80.3 (80.0-98.0) fL MCH 26.4 L (27.0-33.0) pg MCHC 32.9 (31.0-36.0) g/dl RDW 14.1 (11.0-16.0) % Plt Count 286 (160-400) X10*3/uL MPV 8.5 L (9.4-12.4) fL Immature Gran % (Auto) 0.3 (0.0-0.4) % Neut % (Auto) 41.9 L (45-73) % Lymph % (Auto) 40.8 H (20-40) % [place] % (Auto) 16.1 H (2-11) % Eos % (Auto) 0.6 (0-4) % Baso % (Auto) 0.3 (0-2) % Lymph # (Auto) 1.4 (1.2-4.9) X10*3/uL [place] # (Auto) 0.6 (0.1-1.2) X10*3/uL Eos # (Auto) 0.0 (0.0-0.4) X10*3/uL Baso # (Auto) 0.0 (0.0-0.2) X10*3/uL Abs Immat Gran (auto) 0.01 (0.00-0.03) X10*3/uL Absolute Neuts (auto) 1.4 L (2.0-8.3) x10*3/uL Absolute Nucleated RBC 0.000 (0.0-0.012) X10*3/uL Nucleated RBC % (auto) 0.0 (0.0-0.2) /100WBC Sodium 138 (135-145) mmol/L Potassium 3.6 (3.3-5.1) mmol/L Chloride 105 (96-108) mmol/L Carbon Dioxide 26 (22-29) mmol/L Anion Gap 11 L (12-20) BUN 16 (9-16) mg/dL Creatinine 0.81 (0.5-1.4) mg/dL Estim Creat Clear Calc 84.9 Estimated GFR > 60 Random Glucose 96 (60-115) mg/dL Calcium 8.3 L D (8.4-10.2) mg/dL Total Bilirubin 0.3 (0.0-1.0) mg/dL AST 28 (5-37) U/L ALT 19 (0-40) U/L Alkaline Phosphatase 75 (39-117) U/L Total Protein 7.1 (6.5-8.0) g/dL Albumin 3.8 (3.5-5.0) g/dL Urine Color Yellow Urine Appearance Clear Urine pH 7.5 (5.0-9.0) Ur Specific [place] 1.020 (1.005-1.025) Urine Protein Negative (Neg-Trace) mg/dL Urine Glucose (UA) Negative (Negative) mg/dL Urine Ketones Negative (Negative) mg/dL Urine Blood Negative (Negative) Urine Nitrite Negative (Negative) Ur Leukocyte Esterase Negative (Negative) Urine Opiates Screen POSITIVE H (Not Detect) Ur Buprenorphine Scrn Positive H (Not Detect) ng/mL Ur Oxycodone Screen Not Detected (Not Detect) ng/mL Urine Methadone Screen Not Detected (Not Detect) ng/mL Urine Fentanyl Screen POSITIVE H (Not Detect) Ur Barbiturates Screen Not Detected (Not Detect) Ur Phencyclidine Scrn Not Detected (Not Detect) Ur Amphetamines Screen Not Detected (Not Detect) U Benzodiazepines Scrn Not Detected (Not Detect) Urine Cocaine Screen POSITIVE H (Not Detect) U Marijuana (THC) Screen Not Detected (Not Detect) Ethyl Alcohol < 10 mg/dL Discharge Plan Discharge Clinical Impression: Opioid use disorder Patient Disposition: Home, Self-Care Instructions: Narcotic Use Disorder (ED) Prescriptions: No Action buprenorphine-naloxone [Suboxone] 8-2 mg film 2 film sublingual DAILY cyclobenzaprine 10 mg tablet 10 mg PO BEDTIME 30 Days Qty: 30 1RF clonidine HCl 0.1 mg tablet 0.1 mg PO BID 30 Days Qty: 60 1RF lisinopril 20 mg tablet 20 mg PO DAILY 30 Days Qty: 30 1RF gabapentin 400 mg capsule 400 mg PO BID 30 Days Qty: 60 1RF risperidone 3 mg tablet 3 mg PO BEDTIME 30 Days Qty: 30 1RF pantoprazole 20 mg tablet,delayed release (DR/EC) 20 mg PO QAM 30 Days Qty: 30 1RF hydroxyzine HCl 25 mg tablet 25 mg PO Q6H PRN (Reason: anxiety) 30 Days Qty: 60 1RF melatonin 10 mg tablet 10 mg PO BEDTIME PRN (Reason: sleep) 30 Days Qty: 30 1RF Referrals: Lara Garza MD [Primary Care Provider] - Interventions: [place]-Suicide Risk Severity Scale Last Done: 03/10/24 06:25 Print Language: Syriac
[2024-03-10] MEDS: methADONE HCl 20 MG/2 ML ORAL.CONC 30 MG PO (08:37)
--- NOTE | 2024-03-10 08:57 | MHC.RECOVRN ---
Met with pt in [facility] after cleared by CARE Team and pt expressed interest in ATS. Pt reports heroin/fentanyl use, 2 bags daily, IV, as well as crack cocaine, a couple rocks a day, INH. Pt interested in ATS, willing to go to any facility. Denies recent ATS admissions. Appears comfortable at this time. Denies questions or concerns for t/w. Bedsearch will be conducted. RN aware.
[2024-03-10 11:01] LABS: Amphetamine Screen Urine Not Detected (Not Detect); Barbiturates, Urine Not Detected (Not Detect); Benzodiazepines Screen Urine Not Detected (Not Detect); Buprenorphine Scr Positive (Not Detect); Cannabinoid Screen Urine Not Detected (Not Detect); Cocaine Screen Urine POSITIVE (Not Detect); Fentanyl, urine POSITIVE (Not Detect); Methadone Screen, Urine Not Detected (Not Detect); Opiate Screen Urine POSITIVE (Not Detect); Oxycodone Screen Urine Not Detected (Not Detect); Phencyclidine Screen Urine Not Detected (Not Detect)
--- NOTE | 2024-03-10 11:18 | PC.NURSE ---
Awaiting 10:45 med. verifications per pharmacy at this time.
[2024-03-10 11:52] VITALS: BP 149/100; PULSE 69; RESP 18; TEMP 36.7; O2SAT 100
--- NOTE | 2024-03-10 12:02 | MHC.RECOVRN ---
[facility] does not have bed availability. Discussed with pt, pt would like to discharge and continue methadone with [facility] tomorrow morning. Denies other questions or concerns. Provider and RN aware. Referral sent to [facility].
--- NOTE | 2024-03-10 12:29 | MHC.CARE ---
Pt has been placed on alert with [facility] and a 3 day follow up was requested.
== END 2024-03-10 11:53 | disposition home or self-care (01) ==
PROVIDERS: Emergency Provider Emergency Medicine; PCP Internal Medicine
DX: F11.90 Opioid use, unspecified, uncomplicated (principal); R45.851 Suicidal ideations; F19.10 Other psychoactive substance abuse, uncomplicated; F14.10 Cocaine abuse, uncomplicated; F43.10 Post-traumatic stress disorder, unspecified; F25.1 Schizoaffective disorder, depressive type; Z87.891 Personal history of nicotine dependence
CPT/HCPCS: 36415; 80053; 80307; 81003; 85025; 99285; S9485

== ENCOUNTER 2024-03-22 07:30 | Inpatient (IN) | payer MEDICAID, OTHER, SELFPAY ==
[2024-03-22 07:44] VITALS: BP 132/84; PULSE 74; O2SAT 97
--- NOTE | 2024-03-22 07:45 | ED_ITS ---
HPI - Psych General Chief Complaint: Psychiatric Symptoms Stated Complaint: SI, NO PLAN, HOMELESS,FENTANYL USE LAST NIGHT Time Seen by Provider: 03/22/24 07:40 Source: patient Limitations: no limitations History of Present Illness HPI Narrative: This is a 48 years old male with a history of mood disorder, cocaine opioid use disorder presented to emergency department complaining of SI. He use fentanyl last night. His currently homeless MD complaint: suicidal ideation Onset (ago): day(s) (2) Duration: constant History of same: Yes Relieving factors: none Exacerbating factors: none Context: recent drug abuse Associated psychiatric symptoms: suicidal ideation Associated symptoms: denies other symptoms Related Data Home Medications ?Medication ?Instructions ?Recorded ?Confirmed buprenorphine 8 mg-naloxone 2 mg 2 film sublingual DAILY 02/24/24 03/02/24 sublingual film (Suboxone) Previous Rx's ?Medication ?Instructions ?Recorded clonidine HCl 0.1 mg tablet 0.1 mg PO BID 30 days #60 tabs 02/17/24 cyclobenzaprine 10 mg tablet 10 mg PO BEDTIME 30 days #30 tabs 02/17/24 gabapentin 400 mg capsule 400 mg PO BID 30 days #60 caps 02/17/24 hydroxyzine HCl 25 mg tablet 25 mg PO Q6H PRN anxiety 30 days 02/17/24 #60 tabs lisinopril 20 mg tablet 20 mg PO DAILY 30 days #30 tabs 02/17/24 melatonin 10 mg tablet 10 mg PO BEDTIME PRN sleep 30 days 02/17/24 #30 tabs pantoprazole 20 mg tablet,delayed 20 mg PO QAM 30 days #30 tabs 02/17/24 release risperidone 3 mg tablet 3 mg PO BEDTIME 30 days #30 tabs 02/17/24 Allergies Allergy/AdvReac Type Severity Reaction Status Date / Time No Known Allergies Allergy Verified 03/22/24 08:04 [No Known Allergies*] Review of Systems Constitutional: Constitutional: Reports no additional constitutional complaints Psychiatric: Psychiatric: Reports as per HPI, Reports anxiety and Reports depression [facility] Past Medical History Attestation statement: The following information was validated with the patient. [facility] Narrative: PTSD, major depression disorder, polysubstance abuse Medical History Suicidal ideation Polysubstance abuse Opioid use disorder Polysubstance abuse NSTEMI (non-ST elevated myocardial infarction) PTSD (post-traumatic stress disorder) Cocaine use disorder Polysubstance use disorder Social History Social History Household Members: None Housing: Apartment Do you presently have visiting nurse or other home services: No Unable to assess alcohol history related to: Unknown Alcohol intake: never Patient Tobacco Use Status: Former Tobacco user e-Cigarette/Vaping Use: Never Used Second Hand Smoke Exposure: No Substance Use Type: Crack/Cocaine, Heroin and Marijuana Advance Directives: No Advance Directives Information Provided: Yes Do you have a plan to hurt others: No Plan service: No Sexual orientation: Straight/Heterosexual Physical Exam Vital Signs: Vital Signs: Last Vital Signs Temp 97.2 F 03/22/24 08:03 Pulse 65 03/22/24 08:03 Resp 20 03/22/24 08:03 BP 145/87 H 03/22/24 08:03 Pulse Ox 99 03/22/24 08:03 O2 Del Method Room Air 03/22/24 08:03 BMI result Body Mass Index 28.3 Not toxic appearing Const: General: cooperative Nutritional Appearance: well nourished Orientation/consciousness: patient oriented x3 Limitations: no limitations HEENT: Head: Yes normal to inspection Ears: hearing grossly normal bilaterally General nose exam: Normal external nose present Face and sinus: Yes normal facial exam Mouth: Normal oral and palatal mucosa present Throat: Yes posterior oropharynx normal Neck: Neck: Yes normal visual inspection Chest: Chest palpation & inspection: normal inspection of the chest Resp: Effort & Inspection: normal respiratory effort Auscultation: clear to auscultation bilaterally Cardio: Jugular venous distension: no JVD Rate: regular rate Rhythm: regular rhythm GI: Inspection: Yes normal to inspection Palpation (GI): Soft to palpation, not firm, nontender and no guarding : General: Yes no CVA tenderness Back/Spine/Pelvis: Back: no CVA tenderness Skin: General skin exam: no rashes or lesions noted, elasticity normal and turgor normal Lesions: no lesions Rashes: no rashes Neuro: General: patient oriented x3 Course Reevaluation(s) Reevaluation #1: signed out to Dr Gilles silva pending Time: 15:55 Medications Administered Discontinued Medications Generic Name Dose Route Start Last Admin Trade Name Freq PRN Reason Stop Dose Admin Clonidine HCl 0.1 mg 03/22/24 07:43 03/22/24 08:12 Clonidine Hcl 0.1 Mg Tablet PO 03/22/24 07:44 0.1 mg ONCE ONE Administration Protocol Lorazepam 1 mg 03/22/24 07:44 03/22/24 08:12 Lorazepam 1 Mg Tablet PO 03/22/24 07:45 1 mg ONCE ONE Administration Methadone HCl 30 mg 03/22/24 12:35 03/22/24 12:55 Methadone Hcl 20 Mg/2 Ml Oral.Conc PO 03/22/24 12:36 30 mg ONCE ONE Administration Medical Decision Making Medical Decision Making [place] Narrative: Patient presented to the emergency department with a chief complaint of depression/SI we will obtain psych eval Differential Diagnosis Differential Diagnoses: The differential diagnosis associated with the presentation includes Substance abuse/anxiety/depression Lab Data Labs: Lab Results 03/22/24 Range/Units 09:50 Urine Opiates Screen POSITIVE H (Not Detect) Ur Buprenorphine Scrn Not Detected (Not Detect) ng/mL Ur Oxycodone Screen Not Detected (Not Detect) ng/mL Urine Methadone Screen Not Detected (Not Detect) ng/mL Urine Fentanyl Screen POSITIVE H (Not Detect) Ur Barbiturates Screen Not Detected (Not Detect) Ur Phencyclidine Scrn Not Detected (Not Detect) Ur Amphetamines Screen Not Detected (Not Detect) U Benzodiazepines Scrn Not Detected (Not Detect) Urine Cocaine Screen POSITIVE H (Not Detect) U Marijuana (THC) Screen Not Detected (Not Detect) Discharge Plan Discharge Clinical Impression: Opioid use disorder Depression Qualifiers: Depression Type: unspecified Qualified Code(s): F32.A - Depression, unspecified Patient Disposition: Still a Patient Prescriptions: No Action buprenorphine-naloxone [Suboxone] 8-2 mg film 2 film sublingual DAILY cyclobenzaprine 10 mg tablet 10 mg PO BEDTIME 30 Days Qty: 30 1RF clonidine HCl 0.1 mg tablet 0.1 mg PO BID 30 Days Qty: 60 1RF lisinopril 20 mg tablet 20 mg PO DAILY 30 Days Qty: 30 1RF gabapentin 400 mg capsule 400 mg PO BID 30 Days Qty: 60 1RF risperidone 3 mg tablet 3 mg PO BEDTIME 30 Days Qty: 30 1RF pantoprazole 20 mg tablet,delayed release (DR/EC) 20 mg PO QAM 30 Days Qty: 30 1RF hydroxyzine HCl 25 mg tablet 25 mg PO Q6H PRN (Reason: anxiety) 30 Days Qty: 60 1RF melatonin 10 mg tablet 10 mg PO BEDTIME PRN (Reason: sleep) 30 Days Qty: 30 1RF Print Language: Belarusian
[2024-03-22 08:03] VITALS: BP 145/87; PULSE 65; RESP 20; TEMP 36.2; O2SAT 99; BMI 28.3
--- NOTE | 2024-03-22 08:10 | MHC.EDTECH ---
3 Patient Belonging Bags Tied Together. SECURED in Paper Closet between POD and ER on SHELF 1 MIDDLE. Contents in Bags are Jacket, Hat, Backpack, Shoes, 2 Pants, and Sweatshirt
[2024-03-22] MEDS: LORazepam 1 MG TABLET PO (08:12)
[2024-03-22] MEDS: cloNIDine HCL 0.1 MG TABLET PO (08:12)
[2024-03-22 10:11] LABS: Amphetamine Screen Urine Not Detected (Not Detect); Barbiturates, Urine Not Detected (Not Detect); Benzodiazepines Screen Urine Not Detected (Not Detect); Buprenorphine Scr Not Detected (Not Detect); Cannabinoid Screen Urine Not Detected (Not Detect); Cocaine Screen Urine POSITIVE (Not Detect); Fentanyl, urine POSITIVE (Not Detect); Methadone Screen, Urine Not Detected (Not Detect); Opiate Screen Urine POSITIVE (Not Detect); Oxycodone Screen Urine Not Detected (Not Detect); Phencyclidine Screen Urine Not Detected (Not Detect)
[2024-03-22] MEDS: methADONE HCl 20 MG/2 ML ORAL.CONC 30 MG PO (12:55)
--- NOTE | 2024-03-22 14:23 | PC.NURSE ---
patient has remained calm and cooperative, has sitetr 1:1. patient ate lunch and multiple snacks
--- NOTE | 2024-03-22 18:06 | PC.NURSE ---
patient upset hes in the hallway, states that he wants to leave. called CARE team and was informed patient is IPLOC and is section 12.
--- NOTE | 2024-03-22 18:49 | PC.NURSE ---
Assumed care of patient at this time, multiple tube winding machine operator at bedside. patient calm and cooperative this time.
[2024-03-22 19:38] VITALS: BP 126/71; PULSE 73; RESP 18; TEMP 37; O2SAT 98
--- NOTE | 2024-03-22 21:35 | PC.NURSE ---
Patient calm no apparent distress, gas inspector at bedside
[2024-03-22 23:22] VITALS: BP 125/76; PULSE 58; RESP 16; TEMP 36.8; O2SAT 100
[2024-03-23 00:06] VITALS: BP 125/76
[2024-03-23] MEDS: Gabapentin 400 MG CAPSULE PO ×3 (00:06→21:40)
[2024-03-23] MEDS: hydrOXYzine HCL 25 MG TABLET PO (00:06)
[2024-03-23] MEDS: risperiDONE 3 MG TABLET PO ×2 (00:06→21:40)
[2024-03-23] MEDS: cloNIDine HCL 0.1 MG TABLET PO ×3 (00:06→21:44)
[2024-03-23] MEDS: Cyclobenzaprine HCl 10 MG TABLET PO ×2 (00:07→21:44)
--- NOTE | 2024-03-23 02:35 | PC.NURSE ---
patient sleeping in stretcher with money market clerk at bedside. no complaints at this time
--- NOTE | 2024-03-23 08:18 | ECG_ITS ---
Test Reason : check qt Blood Pressure : */* mmHG Vent. Rate : 67 BPM Atrial Rate : 67 BPM P-R Int : 148 ms QRS Dur : 98 ms QT Int : 376 ms P-R-T Axes : 24 1 10 degrees QTcB Int : 397 ms Normal sinus rhythm Normal ECG When compared with ECG of 07-Mar-2024 03:06, No significant change was found Referred By: Faisal Peraza Electronically Signed By: RUBEN EUCEDA
[2024-03-23] MEDS: Omeprazole 20 MG CAPSULE.DR PO (08:23)
[2024-03-23] MEDS: risperiDONE 1 MG TABLET PO (08:23)
[2024-03-23] MEDS: lisinopriL 20 MG TABLET PO (08:23)
[2024-03-23] MEDS: DULoxetine HCl 30 MG CAPSULE.DR PO (08:23)
[2024-03-23 08:24] VITALS: BP 118/70; PULSE 76; RESP 18; TEMP 37; O2SAT 99
[2024-03-23 08:49] LABS: MANUAL DIFF FLAG NO
[2024-03-23 08:54] LABS: Basophils Percent Auto 0.6 % (0-2); Eosinophils Absolute Auto 0.1 X10*3/uL (0.0-0.4); Eosinophils Percent Auto 1.6 % (0-4); Hematocrit 40.1 % (42.0-52.0); Hemoglobin 12.8 g/dl (14.0-18.0); Imm Gran Abs Auto 0.02 X10*3/uL (0.00-0.03); Imm Gran Pct Auto 0.4 % (0.0-0.4); Lymphocytes Absolute Auto 1.7 X10*3/uL (1.2-4.9); Lymphocytes Percent Auto 32.2 % (20-40); Mean Corpuscular HGB Conc 31.9 g/dl (31.0-36.0); Mean Corpuscular Hemoglobin 26.4 pg (27.0-33.0); Mean Corpuscular Volume 82.7 fL (80.0-98.0); Mean Platelet Volume 8.6 fL (9.4-12.4); Monocytes Absolute Auto 0.8 X10*3/uL (0.1-1.2); Monocytes Percent Auto 15.1 % (2-11); Neutrophils Absolute Auto 2.6 x10*3/uL (2.0-8.3); Neutrophils Percent Auto 50.1 % (45-73); Platelet Count 311 X10*3/uL (160-400); Red Blood Count 4.85 X10*6/uL (4.60-5.80); Red Cell Distribution Width 14.4 % (11.0-16.0); White Blood Count 5.2 X10*3/uL (4.8-10.8)
[2024-03-23 08:55] LABS: Appearance Urine Clear; Color Urine Yellow; Glucose Urine UA Negative (Negative); Leukocyte Esterase Urine Negative (Negative); Nitrite Urine Negative (Negative); Specific Gravity - Urine >= 1.030 (1.005-1.025); Urine Blood Negative (Negative); Urine Ketones Trace mg/dL (Negative); Urine Protein Negative (Neg-Trace)
[2024-03-23 09:21] LABS: Alanine Aminotransferase 15 U/L (0-40); Albumin Level 3.6 g/dL (3.5-5.0); Alkaline Phosphatase 85 U/L (39-117); Anion Gap 9 (12-20); Aspartate Amino Transferase 23 U/L (5-37); Bilirubin Total 0.2 mg/dL (0.0-1.0); Blood Urea Nitrogen 27 mg/dL (9-16); Calcium 8.5 mg/dL (8.4-10.2); Carbon Dioxide 24 mmol/L (22-29); Chloride 106 mmol/L (96-108); Creatinine Clr Calc Pharmacy 82.3; Estimated Glomerular Filt Rate > 60; Glucose Random 87 mg/dL (60-115); Potassium 4.3 mmol/L (3.3-5.1); Sodium 135 mmol/L (135-145)
--- NOTE | 2024-03-23 10:11 | PC.NURSE ---
labs/urine/ekg obtained so pt can be presented to psych admissions at this time. 1:1 sitter remains present. plan of care ongoing.
--- NOTE | 2024-03-23 10:28 | PC.NURSE ---
delay in medication d/t medication not being verified by pharmacy. medication administered per provider order. 1:1 sitter remains present.
--- NOTE | 2024-03-23 10:33 | PC.NURSE ---
pt refused suboxone administration. wasted w/ Comfort Claudio RN.
[2024-03-23 12:06] VITALS: BP 93/60; PULSE 90; RESP 18; TEMP 37.1; O2SAT 95
--- NOTE | 2024-03-23 12:38 | PC.NURSE ---
vss up to date aside from being slightly hypotensive. pt denies feeling dizzy/lightheaded. pt offers no complaints. pt remains bedsearch at this time. 1:1 sitter remains present. plan of care ongoing.
--- NOTE | 2024-03-23 13:44 | PC.NURSE ---
pt speaking w/ care team at this time.
[2024-03-23 15:39] VITALS: BP 108/59; PULSE 72; RESP 16; TEMP 36.3; O2SAT 96
--- NOTE | 2024-03-23 18:16 | PHA.MEDREC ---
Addendum entered by Honey Richey RPh 03/23/24 18:44: [facility] reviewed Original Note: Pharmacy Consult ? Medication Reconciliation Pharmacy has reviewed the medication reconciliation done by nursing. Claims match med list.
--- NOTE | 2024-03-23 19:24 | PC.NURSE ---
This RN assumed pt care @ 1900. Pt resting in bed quietly, no signs of distress. Plan of care ongoing.
--- NOTE | 2024-03-23 20:33 | PC.NURSE ---
Pt requesting methadone This RN notified Dr. Izquierdo. Dr Izquierdo spoke with pt. Plan of care ongoing.
[2024-03-23] MEDS: methADONE HCl 20 MG/2 ML ORAL.CONC 30 MG PO (21:34)
[2024-03-23 21:43] VITALS: BP 138/84; PULSE 78
[2024-03-23 21:44] VITALS: BP 138/84
[2024-03-24 02:00] VITALS: BP 102/60; PULSE 65; RESP 16; O2SAT 96
[2024-03-24 06:17] VITALS: BP 107/69; PULSE 77; RESP 16; O2SAT 98
[2024-03-24] MEDS: cloNIDine HCL 0.1 MG TABLET PO (08:18)
[2024-03-24] MEDS: Acetaminophen 325 MG TABLET 650 MG PO (08:18)
[2024-03-24] MEDS: lisinopriL 20 MG TABLET PO (08:18)
[2024-03-24] MEDS: DULoxetine HCl 30 MG CAPSULE.DR PO (08:18)
[2024-03-24] MEDS: Gabapentin 400 MG CAPSULE PO (08:19)
[2024-03-24] MEDS: risperiDONE 1 MG TABLET PO (08:19)
[2024-03-24] MEDS: Omeprazole 20 MG CAPSULE.DR PO (08:19)
[2024-03-24 12:35] VITALS: BP 106/59; PULSE 73; RESP 16; TEMP 36.4; O2SAT 98
[2024-03-24 12:59] VITALS: BMI 28.3
--- NOTE | 2024-03-24 16:16 | PC.ADMIT ---
48 y/o male admitted to from [facility] POD on a CV at 1235 for SI with command AH to harm self and others. Pt presented to police station with complaints of SI/HI and was brought to ED. Per pt, he had been experiencing SI recently, and attempted to jump into canal in [place] last week and was stopped by police. Pt well known to [facility] with multiple psych admissions. Most recent discharge from was on 02/27/24. Pt has hx of schizophrenia, depression, anxiety, PTSD, and cocaine opioid use disorder. Pt reported recent Fentanyl use on 03/21/24 prior to arriving to ED. Tox screen positive for cocaine, fentanyl, and opiates. While in ED pt received one time doses of Methadone 30mg on 03/22 and 03/23, however did not receive Methadone today on 03/24. Additionally, pt has an order for Suboxone but has refused all doses while in hospital. On arrival to unit, pt denied withdrawal symptoms and stated he did not want to take Suboxone. Additionally, pt stated he would inform nurse if feeling withdrawal symptoms. Per provider, Methadone to be ordered if pt begins to complain of withdrawal symptoms. No AVH noted on admission. Pt endorsed passive SI, but denied active plan or intent to harm self while in hospital. Pt denied HI and stated he would not harm others on the unit. Pt has history of incarcerations with a reported 22 total years of his life spent in [facility]. No history of restraints while in-patient. Pt denied active ETOH use and could not recall last drink. Pt denied nicotine use and refused Influenza vaccine. Safety/skin check unremarkable. Pt provided with meal and toiletries and went directly to room to sleep. Pt remained napping for most of afternoon, and was awake and visible in kitchen in evening. Pt quiet, guarded, and kept to self. Pt declined to participate in treatment plan and safety tool, and declined to sign paperwork for both. Pt also refused to sign any release of information forms. In evening pt requested and signed a three day notice. Pt reported he felt safe to leave the hospital. Pt remains safe on 15 minute checks.
[2024-03-24 20:00] VITALS: BP 101/53; PULSE 97; RESP 16; TEMP 36.6; O2SAT 96
[2024-03-25 08:00] VITALS: BP 128/83; PULSE 79; RESP 16; TEMP 36.8; O2SAT 98
[2024-03-25] MEDS: cloNIDine HCL 0.1 MG TABLET PO ×2 (08:22→20:38)
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
[2024-03-25] MEDS: clonazePAM 1 MG TABLET PO (15:36)
[2024-03-25] MEDS: Acetaminophen 325 MG TABLET 650 MG PO (17:54)
[2024-03-25] MEDS: Throat Lozenge, Medicated LOZENGE 1 LOZENGE MUCOUS MEM ×2 (18:42→23:35)
[2024-03-25 19:10] LABS: Influenza A PCR NEGATIVE (Negative); Influenza B PCR NEGATIVE (Negative); Resp Syncy Virus RNA Qual PCR NEGATIVE (Negative); SARS COV2 PCR INHOUSE NEGATIVE (Negative)
[2024-03-25 20:00] VITALS: BP 120/65; PULSE 86; RESP 16; TEMP 36.8; O2SAT 99
[2024-03-25] MEDS: risperiDONE 3 MG TABLET PO (20:36)
[2024-03-25] MEDS: Gabapentin 100 MG CAPSULE 200 MG PO (20:37)
[2024-03-25] MEDS: Cyclobenzaprine HCl 10 MG TABLET PO (20:37)
[2024-03-25] MEDS: clonazePAM 0.5 MG TABLET PO (20:37)
[2024-03-26 07:00] VITALS: BMI 30.3
[2024-03-26] MEDS: Throat Lozenge, Medicated LOZENGE 1 LOZENGE MUCOUS MEM ×2 (07:20→20:15)
[2024-03-26 08:00] VITALS: BP 149/78; PULSE 96; RESP 18; TEMP 37.1; O2SAT 99
--- NOTE | 2024-03-26 09:02 | P.PNPSI_ITS ---
Subjective Subjective Date of Service: 03/26/24 Reason For Visit: Polysibstance use disorder, PTSD substanceinduced Interim History: Met with patient; discussed with team reports mood is much better and he's feeling back to his regular self; he says he's great and is looking forward to discharge. Discussed Strep A dx and pt is feeling better after dose of abx. No SI/HI/AVH. Mental Status Exam Mental Status Exam Narrative: Pt is alert and oriented; behavior is cooperative, friendly and calm; patient is not in distress; dressed in casual attire with adequate grooming and hygiene; mood is described as great and affect congruent, bright, calm; eye contact appropriate; Speech is normal rate, volume and prosody and not pressured; no psychomotor agitation/retardation present; thought process is organized and goal directed; Thought content is on tx; otherwise pertinent to relevant topics and without any delusional content, paranoid ideations or grandiosity; denies any SI/HI. Denies AH and there is no evidence of perceptual disturbance. Patients insight and judgment fair. Diagnostics Vital Signs (24Hr): Vital Signs - 24 hr 03/25/24 20:00 03/26/24 08:00 Temperature 98.3 F 98.7 F Pulse Rate 86 96 Respiratory Rate 16 18 Blood Pressure 120/65 149/78 H Pulse Oximetry 99 99 Oxygen Delivery Method Room Air Room Air BMI result Body Mass Index 28.3 Labs 03/23/24 08:38 03/23/24 08:38 Labs: Laboratory Results - last 48 hr 03/25/24 18:22 Influenza Type A (PCR) NEGATIVE Influenza Type B (PCR) NEGATIVE RSV RNA Qual (PCR) NEGATIVE SARS-CoV-2 RNA (RT-PCR) NEGATIVE Medications Medications Current Medications Acetaminophen (Acetaminophen 325 Mg Tablet) 650 mg PO Q6H PRN PRN Reason: Headache/Pain Mild Scale (1-3) Last Admin: 03/25/24 17:54 Dose: 650 mg Al Hydroxide/Mg Hydroxide (Magnesium Hydrox/Alum Hydrox 30 Ml Oral.Susp) 30 ml PO Q6H PRN PRN Reason: Heartburn/Nausea Benzocaine (Throat Lozenge, Medicated Lozenge) 1 lozenge MUCOUS MEM Q2H PRN PRN Reason: Sore Throat Last Admin: 03/26/24 07:20 Dose: 1 lozenge Buprenorphine/Naloxone (Buprenorphine/Naloxone 8/2 Mg Film) 2 film SUBLINGUAL DAILY [facility] Last Admin: 03/25/24 09:06 Dose: Not Given Clonazepam (Clonazepam 0.5 Mg Tablet) 0.5 mg PO BID [facility] Last Admin: 03/25/24 20:37 Dose: 0.5 mg Clonidine HCl (Clonidine Hcl 0.1 Mg Tablet) 0.1 mg PO BID [facility]; Protocol Last Admin: 03/25/24 20:38 Dose: 0.1 mg Cyclobenzaprine HCl (Cyclobenzaprine Hcl 10 Mg Tablet) 10 mg PO BEDTIME [facility] Last Admin: 03/25/24 20:37 Dose: 10 mg Duloxetine HCl (Duloxetine Hcl 30 Mg Capsule.) 30 mg PO DAILY [facility] Last Admin: 03/25/24 09:06 Dose: Not Given Gabapentin (Gabapentin 100 Mg Capsule) 200 mg PO BID [facility] Last Admin: 03/25/24 20:37 Dose: 200 mg Hydroxyzine HCl (Hydroxyzine Hcl 25 Mg Tablet) 25 mg PO Q6H PRN PRN Reason: anxiety Last Admin: 03/23/24 00:06 Dose: 25 mg Lisinopril (Lisinopril 20 Mg Tablet) 20 mg PO DAILY [facility]; Protocol Last Admin: 03/25/24 09:06 Dose: Not Given Magnesium Hydroxide (Milk Of Magnesia 30 Ml Oral.Susp) 30 ml PO DAILY PRN PRN Reason: Constipation Nicotine Polacrilex (Nicotine Polacrilex 2 Mg Gum) 4 mg BUCCAL Q2H PRN PRN Reason: Nicotine Cravings Omeprazole (Omeprazole 20 Mg Capsule.) 20 mg PO DAILY@0730 [facility] Last Admin: 03/26/24 08:59 Dose: Not Given Risperidone (Risperidone 1 Mg Tablet) 1 mg PO DAILY [facility] Last Admin: 03/25/24 09:06 Dose: Not Given Risperidone (Risperidone 3 Mg Tablet) 3 mg PO BEDTIME [facility] Last Admin: 03/25/24 20:36 Dose: 3 mg Trazodone HCl (Trazodone Hcl 50 Mg Tablet) 50 mg PO BEDTIME [id number] PRN PRN Reason: Insomnia Allergies Allergies Allergy/AdvReac Type Severity Reaction Status Date / Time No Known Allergies Allergy Verified 03/22/24 08:04 [No Known Allergies*] Assessment & Plan Assessment & Plan (1) Schizoaffective disorder, depressive type: Status: Acute Code(s): F25.1 - Schizoaffective disorder, depressive type (2) PTSD (post-traumatic stress disorder): Status: Acute Code(s): F43.10 - Post-traumatic stress disorder, unspecified (3) Opioid use disorder: Status: Acute Code(s): F11.90 - Opioid use, unspecified, uncomplicated (4) Cocaine use disorder: Status: Acute Code(s): F14.10 - Cocaine abuse, uncomplicated Plan Patient is a 48-year-old male with history of schizoaffective disorder, depressed type, PTSD, cocaine, opiate use disorder, history of [place] status post cocaine use, past gang affiliation, incarceration who presents for worsening depression and SI in the face of relapse. Patient says that after recent discharge, soon relapsed. He says he kept taking his medication however. Person said depression worsened and he became suicidal. He says suicidality has since resolved. He is still depressed and very upset with himself for having relapsed. He agrees to get back on his medication saying that who did miss a couple days prior to this admission. Patient reports that although depressed, he would like to discharge soon so that he can pay his rent. No alcohol use. Formulation/clinical reasoning: Patients depression likely a combination of cocaine withdrawal and having been off some of his medications. Agrees to restart them but would like to titrate gabapentin more slowly. Does not really want to be on Suboxone. Reports SI has resolved despite continued depression. Patient asks to be on clonazepam for anxiety saying he buys it on the street. Research Program Coordinator discussed how this is not an option given his ongoing struggles with substance abuse as well as the fact that when patient is sober and stabilized on medication, his anxiety is under well control; patient accepts this and credit underwriter agrees to give some clonazepam to taper from some possible withdrawal. feeling much better, back to baseline; depression resolved; remains w/out SI/AVH. Pt wants to dc tomorrow as planned (3 day notice is due). He is future oriented. Treated for strep A pt remains vulnerable to relapse and decompensation, but this is chronic. He is not in imminent risk for harm to self or others and appropriate to return to community for tx. Plan: Three day notice Q 15 minutes checks started Amoxicillin 500mg bid for 7 days Restarted home medication Will give 1 dose of clonazepam and then 0.5 mg b.i.d. while on the unit UDS positive for cocaine, opiates/fentanyl Some upper respiratory symptoms and RSV/influenza labs ordered Patient educated on: diagnosis, medication risk/benefits and medical condition Informed Consent: understands Reason for continued inpatient stay Substantial Risk for: stable for discharge Time Spent With Patient Time: Total time managing care of this patient today ____ minutes.
[2024-03-26] MEDS: Acetaminophen 325 MG TABLET 650 MG PO ×2 (09:11→19:54)
[2024-03-26 09:51] VITALS: TEMP 38.6
[2024-03-26] MEDS: Ibuprofen 600 MG TABLET PO ×2 (10:00→19:53)
[2024-03-26 10:35] VITALS: BP 125/70; PULSE 90; RESP 20; TEMP 37.7; O2SAT 99
[2024-03-26 10:39] LABS: IDNOW Serial# 08D9AD1C; Strep A Nucleic Acid Positive (Negative)
[2024-03-26] MEDS: risperiDONE 1 MG TABLET PO (10:43)
[2024-03-26] MEDS: lisinopriL 20 MG TABLET PO (10:43)
[2024-03-26] MEDS: DULoxetine HCl 30 MG CAPSULE.DR PO (10:43)
[2024-03-26] MEDS: Omeprazole 20 MG CAPSULE.DR PO (10:44)
[2024-03-26] MEDS: cloNIDine HCL 0.1 MG TABLET PO ×2 (10:44→19:55)
[2024-03-26] MEDS: clonazePAM 0.5 MG TABLET PO ×2 (10:45→19:55)
[2024-03-26] MEDS: Buprenorphine/Naloxone 8/2 mg FILM 2 FILM SUBLINGUAL (10:45)
[2024-03-26] MEDS: Amoxicillin 500 MG CAPSULE PO ×2 (11:56→19:53)
[2024-03-26] MEDS: Gabapentin 400 MG CAPSULE PO (19:54)
[2024-03-26 19:55] VITALS: BP 142/60
[2024-03-26] MEDS: Cyclobenzaprine HCl 10 MG TABLET PO (19:55)
[2024-03-26 20:00] VITALS: BP 142/60; PULSE 100; RESP 16; TEMP 37.1; O2SAT 98
[2024-03-26] MEDS: Throat Spray, Medicated 177 ML BOTTLE 1 SPRAY MUCOUS MEM (20:39)
[2024-03-26] MEDS: Melatonin 3 MG TABLET 6 MG PO (20:58)
[2024-03-27 08:08] VITALS: BP 110/61; PULSE 84; RESP 16; TEMP 36.3; O2SAT 100
--- NOTE | 2024-03-27 08:54 | P.DS_ITS ---
DS: Providers Provider Date of Service: 03/27/24 Date of admission: 03/24/24 11:37 Date of discharge: 03/27/24 Primary care physician: Lara Headley MD Attending physician on admission: Tyler De Santiago Attending physician on discharge: Tyler De Santiago DS: Diagnosis Discharge Diagnosis (1) Schizoaffective disorder, depressive type: Status: Acute (2) PTSD (post-traumatic stress disorder): Status: Acute (3) Opioid use disorder: Status: Acute (4) Cocaine use disorder: Status: Acute DS: Medications Discharge Medications Home Medications: Home Medications ?Medication ?Instructions ?Recorded ?Confirmed buprenorphine 8 mg-naloxone 2 mg 2 film sublingual DAILY 02/24/24 03/22/24 sublingual film (Suboxone) risperidone 1 mg tablet 1 mg PO DAILY 03/22/24 03/22/24 ammonium lactate 12 % lotion 1 appl topical BID PRN Dry Skin 03/23/24 03/23/24 Previous Rx's ?Medication ?Instructions ?Recorded amoxicillin 500 mg capsule 500 mg PO BID 6 days #12 caps 03/26/24 clonidine HCl 0.1 mg tablet 0.1 mg PO BID 30 days #60 tabs 03/26/24 cyclobenzaprine 10 mg tablet 10 mg PO BEDTIME PRN muscle spasm 03/26/24 30 days #30 tabs duloxetine 30 mg capsule,delayed 30 mg PO DAILY 30 days #30 caps 03/26/24 release gabapentin 400 mg capsule 400 mg PO BID 30 days #60 caps 03/26/24 hydroxyzine HCl 25 mg tablet 25 mg PO Q6H PRN anxiety 30 days 03/26/24 #60 tabs lisinopril 20 mg tablet 20 mg PO DAILY 30 days #30 tabs 03/26/24 melatonin 5 mg tablet 5 mg PO BEDTIME PRN sleep 30 days 03/26/24 #30 tabs pantoprazole 20 mg tablet,delayed 20 mg PO QAM 30 days #30 tabs 03/26/24 release phenol 1.4 % mucosal aerosol spray 1 spray mucous membrane Q2H PRN 03/26/24 (Chloraseptic Throat [place]) sore throat 7 days #20 mL risperidone 3 mg tablet 3 mg PO BEDTIME 30 days #30 tabs 03/26/24 Mental Status Exam Mental Status Exam Narrative: Pt is alert and oriented; behavior is cooperative, friendly and calm; patient is not in distress; dressed in casual attire with adequate grooming and hygiene; mood is described as good and affect congruent, bright, calm; eye contact appropriate; Speech is normal rate, volume and prosody and not pressured; no psychomotor agitation/retardation present; thought process is organized and goal directed; Thought content is on tx; otherwise pertinent to relevant topics and without any delusional content, paranoid ideations or grandiosity; denies any SI/HI. Denies AH and there is no evidence of perceptual disturbance. Patients insight and judgment fair. Data Data Completed and Pending Completed studies during hospitalization [Text1]: 03/22/24 03/23/24 03/25/24 09:50 08:38 18:22 WBC 5.2 RBC 4.85 Hgb 12.8 L Hct 40.1 L MCV 82.7 MCH 26.4 L MCHC 31.9 RDW 14.4 Plt Count 311 MPV 8.6 L Immature Gran % (Auto) 0.4 Neut % (Auto) 50.1 Lymph % (Auto) 32.2 [place] % (Auto) 15.1 H Eos % (Auto) 1.6 Baso % (Auto) 0.6 Lymph # (Auto) 1.7 [place] # (Auto) 0.8 Eos # (Auto) 0.1 Baso # (Auto) 0.0 Abs Immat Gran (auto) 0.02 Absolute Neuts (auto) 2.6 Absolute Nucleated RBC 0.000 Nucleated RBC % (auto) 0.0 Sodium 135 Potassium 4.3 Chloride 106 Carbon Dioxide 24 Anion Gap 9 L BUN 27 H Creatinine 0.97 Estim Creat Clear Calc 82.3 Estimated GFR > 60 Random Glucose 87 Calcium 8.5 Total Bilirubin 0.2 AST 23 ALT 15 Alkaline Phosphatase 85 Total Protein 7.0 Albumin 3.6 Urine Color Yellow Urine Appearance Clear Urine pH 6.0 Ur Specific [place] >= 1.030 H Urine Protein Negative Urine Glucose (UA) Negative Urine Ketones Trace Urine Blood Negative Urine Nitrite Negative Ur Leukocyte Esterase Negative Urine Opiates Screen POSITIVE H Ur Buprenorphine Scrn Not Detected Ur Oxycodone Screen Not Detected Urine Methadone Screen Not Detected Urine Fentanyl Screen POSITIVE H Ur Barbiturates Screen Not Detected Ur Phencyclidine Scrn Not Detected Ur Amphetamines Screen Not Detected U Benzodiazepines Scrn Not Detected Urine Cocaine Screen POSITIVE H U Marijuana (THC) Screen Not Detected Influenza Type A (PCR) NEGATIVE Influenza Type B (PCR) NEGATIVE RSV RNA Qual (PCR) NEGATIVE SARS-CoV-2 RNA (RT-PCR) NEGATIVE S. pyogenes GrpA NORBERTO 03/26/24 10:20 WBC RBC Hgb Hct MCV MCH MCHC RDW Plt Count MPV Immature Gran % (Auto) Neut % (Auto) Lymph % (Auto) [place] % (Auto) Eos % (Auto) Baso % (Auto) Lymph # (Auto) [place] # (Auto) Eos # (Auto) Baso # (Auto) Abs Immat Gran (auto) Absolute Neuts (auto) Absolute Nucleated RBC Nucleated RBC % (auto) Sodium Potassium Chloride Carbon Dioxide Anion Gap BUN Creatinine Estim Creat Clear Calc Estimated GFR Random Glucose Calcium Total Bilirubin AST ALT Alkaline Phosphatase Total Protein Albumin Urine Color Urine Appearance Urine pH Ur Specific [place] Urine Protein Urine Glucose (UA) Urine Ketones Urine Blood Urine Nitrite Ur Leukocyte Esterase Urine Opiates Screen Ur Buprenorphine Scrn Ur Oxycodone Screen Urine Methadone Screen Urine Fentanyl Screen Ur Barbiturates Screen Ur Phencyclidine Scrn Ur Amphetamines Screen U Benzodiazepines Scrn Urine Cocaine Screen U Marijuana (THC) Screen Influenza Type A (PCR) Influenza Type B (PCR) RSV RNA Qual (PCR) SARS-CoV-2 RNA (RT-PCR) S. pyogenes GrpA NORBERTO Positive A DS: Summary Hospital Course Hospital Course: HPI: Patient is a 48-year-old male with history of schizoaffective disorder, depressed type, PTSD, cocaine, opiate use disorder, history of [place] status post cocaine use, past gang affiliation, incarceration who presents for worsening depression and SI in the face of relapse. Patient says that after recent discharge, soon relapsed. He says he kept taking his medication however. Person said depression worsened and he became suicidal. He says suicidality has since resolved. He is still depressed and very upset with himself for having relapsed. He agrees to get back on his medication saying that who did miss a couple days prior to this admission. Patient reports that although depressed, he would like to discharge soon so that he can pay his rent. No alcohol use. Formulation/clinical reasoning: Patients depression likely a combination of cocaine withdrawal and having been off some of his medications. Agrees to restart them but would like to titrate gabapentin more slowly. Does not really want to be on Suboxone. Reports SI has resolved despite continued depression. Patient asks to be on clonazepam for anxiety saying he buys it on the street. Map Maker discussed how this is not an option given his ongoing struggles with substance abuse as well as the fact that when patient is sober and stabilized on medication, his anxiety is under well control; patient accepts this and conventional underwriter agrees to give some clonazepam to taper from some possible withdrawal. Hospital course: On admission patient depressed but SI resolved; no AVH. Patient was restarted on medications and given clonazepam, low-dose to help with any benzo withdrawal symptoms; patient understood that this would not be continued on discharge as patient's anxiety is well controlled on current medications when he is also sober. Patient rested and mood improved. Complained of a sore throat, positive for strep a and started on antibiotics. Patient's depression fully resolved and he had returned to baseline, good mood, future oriented, with bright affect, friendly and polite in the milieu and feeling back to his regular self. Patient placed a 3 day notice and very much wanted discharge, feeling ready to return to the community and wanting to take care of obligations such as paying his rent. Patient did not want any extra help with substance abuse but rather wanted to continue working on his sobriety with outpatient providers. Patient remained in good behavioral and impulse control throughout his time in the unit. While he remains vulnerable to relapse and decompensation, this is a chronic struggle for him, 1 of which he is well aware, and will not resolve with longer stay on inpatient unit. Patient is not in imminent risk for harm to self or others, appropriate to return to the community for treatment and request for discharge honored. Time spent discussing smoking cessation with patient: 3 to 10 minutes Status at Discharge Functional status at discharge: independent ambulation Overall status at discharge: patient is back to baseline Time Spent with Patient Time attestation: Total time managing care of this patient today __40__ minutes. Time spent: Greater than 30 minutes Specific discharge activities: Met with patient; discussed with team; charting, prescription Discharge Plan Discharge Anticipated Discharge Date/Time: 03/27/24 10:30 Patient Disposition: Home, Self-Care Discharge Diagnosis: schizoaffective disorder, depressed type Referrals: [facility] [Other] - 1 Week ([facility] Call daily at *:15 am to see if bed placement may be available for longterm.) [facility] [Other] - 1 Week ([facility] Hours 5pm- 7 am. Patient must show up to complete intake with staff and to determine if bed is available.) [facility]Other[facility] - [facility] ([facility]) [facility] [Other] - 1 Week (Patient may access [facility] Living room for help in gaining access to community resources.) Lara Headley MD [Primary Care Provider] - 1 Week Discharge Medications: New amoxicillin 500 mg Capsule 500 mg PO BID 6 Days Qty: 12 0RF Chloraseptic Throat [place] 1.4 % Aerosol,[place] 1 spray mucous membrane Q2H PRN (Reason: sore throat) 7 Days Qty: 20 0RF Continued ammonium lactate 12 % lotion 1 appl topical BID PRN (Reason: Dry Skin) clonidine HCl 0.1 mg tablet 0.1 mg PO BID 30 Days Qty: 60 1RF lisinopril 20 mg tablet 20 mg PO DAILY 30 Days Qty: 30 1RF gabapentin 400 mg capsule 400 mg PO BID 30 Days Qty: 60 1RF risperidone 3 mg tablet 3 mg PO BEDTIME 30 Days Qty: 30 1RF pantoprazole 20 mg tablet,delayed release (DR/EC) 20 mg PO QAM 30 Days Qty: 30 1RF hydroxyzine HCl 25 mg tablet 25 mg PO Q6H PRN (Reason: anxiety) 30 Days Qty: 60 1RF duloxetine 30 mg capsule,delayed release(DR/EC) 30 mg PO DAILY 30 Days Qty: 30 0RF risperidone 1 mg tablet 1 mg PO DAILY 30 Days Qty: 30 1RF Changed cyclobenzaprine 10 mg tablet 10 mg PO BEDTIME PRN (Reason: muscle spasm) 30 Days Qty: 30 1RF melatonin 5 mg tablet 5 mg PO BEDTIME PRN (Reason: sleep) 30 Days Qty: 30 0RF No Action buprenorphine-naloxone [Suboxone] 8-2 mg film 2 film sublingual DAILY Discharge Orders: Discharge Order (Routine); Ordered 03/27/24 Ordered By: Tyler De Santiago Diet: Regular diet Activity on Discharge: As tolerated Stand Alone Forms: Patient Portal Discharge page Print Language: Divehi Care Plan Goals: Maintain mood and safe behaviors Take medications as prescribed Continue to pursue sobriety Practice coping skills Continue with outpatient providers and reach out to them as needed Health Concerns: Mood stability and behaviors Sobriety Strep throat Plan of Treatment: Follow up with your PCP, psychiatric provider and other outpatient providers regarding above concerns Take medications as prescribed Assessment: Risk assessment at time of discharge:? Patient was interviewed prior to discharge and found to be fully oriented and without any SI or HI. Patient has improved insight and judgment and wants to continue treatment. Patient is not in imminent risk of harm to self or others and has a safety plan that includes presenting to the closest ER or calling 911 if feeling unsafe.? Patient has been observed closely by nursing and unit staff throughout admission; patient has not engaged in any behaviors that suggest dangerousness to self or others and has demonstrated appropriate behaviors and impulse control
[2024-03-27] MEDS: clonazePAM 0.5 MG TABLET PO (09:09)
[2024-03-27] MEDS: Gabapentin 400 MG CAPSULE PO (09:09)
[2024-03-27] MEDS: DULoxetine HCl 30 MG CAPSULE.DR PO (09:09)
[2024-03-27] MEDS: Amoxicillin 500 MG CAPSULE PO (09:09)
[2024-03-27 09:10] VITALS: BP 110/61
[2024-03-27] MEDS: cloNIDine HCL 0.1 MG TABLET PO (09:10)
[2024-03-27] MEDS: lisinopriL 20 MG TABLET PO (09:10)
[2024-03-27] MEDS: Buprenorphine/Naloxone 8/2 mg FILM 2 FILM SUBLINGUAL (09:10)
[2024-03-27] MEDS: Naloxone HCl Nasal TAKE HOME 4 MG SPRAY 8 MG NOSTRILALT (09:10)
[2024-03-27] MEDS: Omeprazole 20 MG CAPSULE.DR PO (09:10)
[2024-03-27] MEDS: risperiDONE 1 MG TABLET PO (09:10)
== END 2024-03-27 10:26 | disposition home or self-care (01) | DRG 750 ==
LOC: HO.ED 03-24 11:48 → HO.PM5 03-24 12:06
PROVIDERS: Psychiatry & Neurology Psychiatry; Social Worker; Admitting Provider Clinical Nurse Specialist Psychiatric/Mental Health, Adult; Emergency Provider Emergency Medicine; PCP Internal Medicine; Visit Provider Clinical Nurse Specialist Psychiatric/Mental Health, Adult
DX: F25.1 Schizoaffective disorder, depressive type (principal); F11.20 Opioid dependence, uncomplicated; F19.10 Other psychoactive substance abuse, uncomplicated; Z20.822 Contact with and (suspected) exposure to COVID-19; Z87.891 Personal history of nicotine dependence; Z59.02 Unsheltered homelessness; Z79.899 Other long term (current) drug therapy
CPT/HCPCS: 0241U; 36415; 80053; 80307; 81003; 85025; 87651; 93005; 99285; S9485

== ENCOUNTER → 2024-03-23 08:18 | Outpatient (BNV) | payer MEDICAID, SELFPAY | PROVIDERS: Emergency Provider Emergency Medicine; PCP Internal Medicine; Visit Provider Internal Medicine | DX: R45.851 Suicidal ideations (principal) | CPT/HCPCS: 93010 ==

== ENCOUNTER → 2024-03-24 11:37 | Outpatient (BNV) | payer OTHER, SELFPAY | PROVIDERS: Admitting Provider Clinical Nurse Specialist Psychiatric/Mental Health, Adult; Emergency Provider Emergency Medicine; PCP Internal Medicine; Visit Provider Psychiatry & Neurology Psychiatry | DX: F25.1 Schizoaffective disorder, depressive type (principal); F14.10 Cocaine abuse, uncomplicated; F43.11 Post-traumatic stress disorder, acute; F11.90 Opioid use, unspecified, uncomplicated | CPT/HCPCS: 99232 ==

== ENCOUNTER 2024-04-05 07:58 | Inpatient (IN) | payer OTHER, SELFPAY ==
[2024-04-05 08:03] VITALS: BP 124/89; PULSE 80; RESP 18; TEMP 36; O2SAT 97; BMI 29.8
--- NOTE | 2024-04-05 08:10 | ECG_ITS ---
Test Reason : medical clearance Blood Pressure : */* mmHG Vent. Rate : 54 BPM Atrial Rate : 54 BPM P-R Int : 160 ms QRS Dur : 98 ms QT Int : 408 ms P-R-T Axes : 54 -8 16 degrees QTcB Int : 386 ms Sinus bradycardia Minimal voltage criteria for LVH, may be normal variant ( R in aVL ) Borderline ECG When compared with ECG of 23-Mar-2024 09:11, No significant change was found Referred By: Trang Canales Electronically Signed By: Lance Lopez
[2024-04-05 08:28] LABS: MANUAL DIFF FLAG NO
[2024-04-05 08:30] LABS: Appearance Urine Clear; Color Urine Yellow; Glucose Urine UA Negative (Negative); Leukocyte Esterase Urine Negative (Negative); Nitrite Urine Negative (Negative); Specific Gravity - Urine >= 1.030 (1.005-1.025); Urine Blood Negative (Negative); Urine Ketones Negative (Negative); Urine Protein Trace mg/dL (Neg-Trace)
[2024-04-05 08:31] LABS: Basophils Percent Auto 0.8 % (0-2); Eosinophils Absolute Auto 0.1 X10*3/uL (0.0-0.4); Eosinophils Percent Auto 1.6 % (0-4); Hematocrit 36.8 % (42.0-52.0); Hemoglobin 11.6 g/dl (14.0-18.0); Imm Gran Abs Auto 0.02 X10*3/uL (0.00-0.03); Imm Gran Pct Auto 0.4 % (0.0-0.4); Mean Corpuscular HGB Conc 31.5 g/dl (31.0-36.0); Mean Corpuscular Hemoglobin 26.4 pg (27.0-33.0); Mean Corpuscular Volume 83.6 fL (80.0-98.0); Mean Platelet Volume 8.3 fL (9.4-12.4); Monocytes Absolute Auto 0.8 X10*3/uL (0.1-1.2); Monocytes Percent Auto 16.1 % (2-11); Neutrophils Absolute Auto 3.2 x10*3/uL (2.0-8.3); Neutrophils Percent Auto 62.1 % (45-73); Platelet Count 368 X10*3/uL (160-400); Red Cell Distribution Width 14.4 % (11.0-16.0); White Blood Count 5.1 X10*3/uL (4.8-10.8)
--- NOTE | 2024-04-05 08:32 | ED.GENADULT ---
HPI - General Adult General Chief complaint: Psychiatric Symptoms Stated complaint: crisis Time Seen by Provider: 04/05/24 08:32 History of Present Illness ED Provider: Denise FISCHER narrative: The patient is a 48-year-old male who brought himself to the emergency room because of depression. He says he walked here from [place]. He says that he has been using fentanyl, cocaine, and heroin. He was also been drinking alcohol. He is feeling bad about doing this and now he feels suicidal although he has no specific plan. He has not slept for 2 or 3 days. He has not overdosed on anything. He has not cut himself. He says that he has presented himself to the emergency room in this condition and with the symptoms in the past. He worries that he is going to start experiencing withdrawal from the fentanyl and is requesting a dose of 30 mg of methadone. Related Data Home Medications ?Medication ?Instructions ?Recorded ?Confirmed ammonium lactate 12 % lotion 1 appl topical BID PRN Dry Skin 03/23/24 03/23/24 Previous Rx's ?Medication ?Instructions ?Recorded amoxicillin 500 mg capsule 500 mg PO BID 6 days #12 caps 03/26/24 clonidine HCl 0.1 mg tablet 0.1 mg PO BID 30 days #60 tabs 03/26/24 cyclobenzaprine 10 mg tablet 10 mg PO BEDTIME PRN muscle spasm 03/26/24 30 days #30 tabs duloxetine 30 mg capsule,delayed 30 mg PO DAILY 30 days #30 caps 03/26/24 release gabapentin 400 mg capsule 400 mg PO BID 30 days #60 caps 03/26/24 hydroxyzine HCl 25 mg tablet 25 mg PO Q6H PRN anxiety 30 days 03/26/24 #60 tabs lisinopril 20 mg tablet 20 mg PO DAILY 30 days #30 tabs 03/26/24 melatonin 5 mg tablet 5 mg PO BEDTIME PRN sleep 30 days 03/26/24 #30 tabs pantoprazole 20 mg tablet,delayed 20 mg PO QAM 30 days #30 tabs 03/26/24 release phenol 1.4 % mucosal aerosol spray 1 spray mucous membrane Q2H PRN 03/26/24 (Chloraseptic Throat [place]) sore throat 7 days #20 mL risperidone 1 mg tablet 1 mg PO DAILY 30 days #30 tabs 03/26/24 risperidone 3 mg tablet 3 mg PO BEDTIME 30 days #30 tabs 03/26/24 buprenorphine 8 mg-naloxone 2 mg 2 film sublingual DAILY 14 days 03/27/24 sublingual film (Suboxone) #28 ea Allergies Allergy/AdvReac Type Severity Reaction Status Date / Time No Known Allergies Allergy Verified 04/05/24 08:03 [No Known Allergies*] Review of Systems Review of Systems: Yes all other systems are reviewed and are negative [facility] Past Medical History Medical History (Updated 04/05/24 @ 12:54 by Timbo Walker MD) Schizoaffective disorder, depressive type Suicidal ideation Polysubstance abuse Opioid use disorder Polysubstance abuse NSTEMI (non-ST elevated myocardial infarction) PTSD (post-traumatic stress disorder) Cocaine use disorder Polysubstance use disorder Social History Social History Household Members: None Housing: Homeless Do you presently have visiting nurse or other home services: No Unable to assess alcohol history related to: Unknown Alcohol intake: never Patient Tobacco Use Status: Former Tobacco user Smoked in Last 30 Days: No e-Cigarette/Vaping Use: Never Used Second Hand Smoke Exposure: No Use of substances other than those prescribed or required for medical reasons: Yes Substance Use Type: Crack/Cocaine and Heroin Substance Use Frequency: Daily Last Used Substance: Just Prior to Admission Advance Directives: No Advance Directives Information Provided: No Do you have a plan to hurt others: No Plan service: No Sexual orientation: Straight/Heterosexual Physical Exam ED Vital Signs: Vital Signs - 24 hr 04/05/24 08:03 Temperature 96.8 F Pulse Rate 80 Respiratory Rate 18 Blood Pressure 124/89 Pulse Oximetry 97 Oxygen Delivery Method Room Air BMI result Body Mass Index 29.8 Const Other: The patient is awake and alert. He was pleasant and cooperative. He looks somewhat unkempt. He does not appear in acute distress. HENMT Other: Face is symmetrical. Mucous membranes moist. Eyes General: appearance normal, both eyes and all related structures Neck Neck: Yes full ROM Resp Effort & Inspection: normal respiratory effort Auscultation: clear to auscultation bilaterally Cardio Rate: regular rate Rhythm: regular rhythm Heart sounds: S1 normal heart sound present and S2 normal heart sound present GI Other: Abdomen is soft and nontender Skin Other: Skin is dry and unremarkable Neuro Other: The patient is awake and alert with a normal mental status. Cranial nerves 2-12 are intact. He has normal strength and sensation in all extremities. He has a normal gait. He is neurologically intact. Extrem Other: No peripheral edema Medications Administered Discontinued Medications Generic Name Dose Route Start Last Admin Trade Name Nicol PRN Reason Stop Dose Admin Methadone HCl 30 mg 04/05/24 09:01 04/05/24 10:08 Methadone Hcl 20 Mg/2 Ml Oral.Conc PO 04/05/24 09:02 30 mg ONCE ONE Administration Medical Decision Making Medical Decision Making [facility] Narrative: The patient is a 48-year-old male with a history of substance use disorder who was also stating that he is depressed and has suicidal thoughts. He presented voluntarily to the emergency room. He says that he recently use fentanyl and is worried that he will have severe withdrawal from his fentanyl and is requesting a dose of methadone. He says ?they usually give me 30 mg of methadone when I get here. The patient was medically clear and the care team was consulted. Recommendation is for dual diagnosis inpatient bed search. The patient will be placed in physician observation as of 12:53 April 05, 2024. Lab Data 04/05/24 08:19 04/05/24 08:19 Labs: Lab Results 04/05/24 04/05/24 04/05/24 Range/Units 08:19 08:23 08:51 WBC 5.1 (4.8-10.8) X10*3/uL RBC 4.40 L (4.60-5.80) X10*6/uL Hgb 11.6 L (14.0-18.0) g/dl Hct 36.8 L (42.0-52.0) % MCV 83.6 (80.0-98.0) fL MCH 26.4 L (27.0-33.0) pg MCHC 31.5 (31.0-36.0) g/dl RDW 14.4 (11.0-16.0) % Plt Count 368 (160-400) X10*3/uL MPV 8.3 L (9.4-12.4) fL Immature Gran % (Auto) 0.4 (0.0-0.4) % Neut % (Auto) 62.1 (45-73) % Lymph % (Auto) 19.0 L (20-40) % [place] % (Auto) 16.1 H (2-11) % Eos % (Auto) 1.6 (0-4) % Baso % (Auto) 0.8 (0-2) % Lymph # (Auto) 1.0 L (1.2-4.9) X10*3/uL [place] # (Auto) 0.8 (0.1-1.2) X10*3/uL Eos # (Auto) 0.1 (0.0-0.4) X10*3/uL Baso # (Auto) 0.0 (0.0-0.2) X10*3/uL Abs Immat Gran (auto) 0.02 (0.00-0.03) X10*3/uL Absolute Neuts (auto) 3.2 (2.0-8.3) x10*3/uL Absolute Nucleated RBC 0.000 (0.0-0.012) X10*3/uL Nucleated RBC % (auto) 0.0 (0.0-0.2) /100WBC Sodium 141 (135-145) mmol/L Potassium 4.2 (3.3-5.1) mmol/L Chloride 105 (96-108) mmol/L Carbon Dioxide 28 (22-29) mmol/L Anion Gap 12 (12-20) BUN 25 H (9-16) mg/dL Creatinine 1.02 (0.5-1.4) mg/dL Estim Creat Clear Calc 80.1 Estimated GFR > 60 Random Glucose 110 (60-115) mg/dL Calcium 9.3 D (8.4-10.2) mg/dL Total Bilirubin 0.2 (0.0-1.0) mg/dL AST 39 H (5-37) U/L ALT 29 (0-40) U/L Alkaline Phosphatase 85 (39-117) U/L Total Protein 7.9 (6.5-8.0) g/dL Albumin 4.0 (3.5-5.0) g/dL Urine Color Yellow Urine Appearance Clear Urine pH 6.0 (5.0-9.0) Ur Specific [place] >= 1.030 H (1.005-1.025) Urine Protein Trace (Neg-Trace) mg/dL Urine Glucose (UA) Negative (Negative) mg/dL Urine Ketones Negative (Negative) mg/dL Urine Blood Negative (Negative) Urine Nitrite Negative (Negative) Ur Leukocyte Esterase Negative (Negative) Salicylates < 5.0 L (15-30) mg/dL Urine Opiates Screen POSITIVE H (Not Detect) Ur Buprenorphine Scrn Positive H (Not Detect) ng/mL Ur Oxycodone Screen Not Detected (Not Detect) ng/mL Urine Methadone Screen Not Detected (Not Detect) ng/mL Urine Fentanyl Screen POSITIVE H (Not Detect) Acetaminophen < 3 (<30) mcg/mL Ur Barbiturates Screen Not Detected (Not Detect) Ur Phencyclidine Scrn Not Detected (Not Detect) Ur Amphetamines Screen Not Detected (Not Detect) U Benzodiazepines Scrn Not Detected (Not Detect) Urine Cocaine Screen POSITIVE H (Not Detect) U Marijuana (THC) Screen POSITIVE H (Not Detect) Ethyl Alcohol < 10 mg/dL COVID-19 ([facility]ATI) Cancelled Negative COVID-19 Clin Com Cancelled See Note Discharge Plan Discharge Clinical Impression: Depression, Substance use disorder Patient Disposition: Still a Patient Prescriptions: No Action ammonium lactate 12 % lotion 1 appl topical BID PRN (Reason: Dry Skin) amoxicillin 500 mg Capsule 500 mg PO BID 6 Days Qty: 12 0RF Chloraseptic Throat [place] 1.4 % Aerosol,[place] 1 spray mucous membrane Q2H PRN (Reason: sore throat) 7 Days Qty: 20 0RF cyclobenzaprine 10 mg tablet 10 mg PO BEDTIME PRN (Reason: muscle spasm) 30 Days Qty: 30 1RF clonidine HCl 0.1 mg tablet 0.1 mg PO BID 30 Days Qty: 60 1RF lisinopril 20 mg tablet 20 mg PO DAILY 30 Days Qty: 30 1RF gabapentin 400 mg capsule 400 mg PO BID 30 Days Qty: 60 1RF risperidone 3 mg tablet 3 mg PO BEDTIME 30 Days Qty: 30 1RF pantoprazole 20 mg tablet,delayed release (DR/EC) 20 mg PO QAM 30 Days Qty: 30 1RF hydroxyzine HCl 25 mg tablet 25 mg PO Q6H PRN (Reason: anxiety) 30 Days Qty: 60 1RF risperidone 1 mg tablet 1 mg PO DAILY 30 Days Qty: 30 1RF duloxetine 30 mg capsule,delayed release(DR/EC) 30 mg PO DAILY 30 Days Qty: 30 0RF melatonin 5 mg tablet 5 mg PO BEDTIME PRN (Reason: sleep) 30 Days Qty: 30 0RF buprenorphine-naloxone [Suboxone] 8-2 mg film 2 film sublingual DAILY 14 Days Qty: 28 0RF Interventions: [place]-Suicide Risk Severity Scale Last Done: 04/05/24 08:06 Print Language: Slovak
[2024-04-05 08:42] LABS: Amphetamine Screen Urine Not Detected (Not Detect); Barbiturates, Urine Not Detected (Not Detect); Benzodiazepines Screen Urine Not Detected (Not Detect); Buprenorphine Scr Positive (Not Detect); Cannabinoid Screen Urine POSITIVE (Not Detect); Cocaine Screen Urine POSITIVE (Not Detect); Fentanyl, urine POSITIVE (Not Detect); Methadone Screen, Urine Not Detected (Not Detect); Opiate Screen Urine POSITIVE (Not Detect); Oxycodone Screen Urine Not Detected (Not Detect); Phencyclidine Screen Urine Not Detected (Not Detect)
[2024-04-05 08:50] LABS: Acetaminophen LAB < 3 mcg/mL (<30); Alanine Aminotransferase 29 U/L (0-40); Alkaline Phosphatase 85 U/L (39-117); Anion Gap 12 (12-20); Aspartate Amino Transferase 39 U/L (5-37); Bilirubin Total 0.2 mg/dL (0.0-1.0); Blood Urea Nitrogen 25 mg/dL (9-16); Calcium 9.3 mg/dL (8.4-10.2); Carbon Dioxide 28 mmol/L (22-29); Chloride 105 mmol/L (96-108); Creatinine Clr Calc Pharmacy 80.1; Estimated Glomerular Filt Rate > 60; Ethanol < 10 mg/dL; Glucose Random 110 mg/dL (60-115); Potassium 4.2 mmol/L (3.3-5.1); Salicylate < 5.0 mg/dL (15-30); Sodium 141 mmol/L (135-145); Total Protein 7.9 g/dL (6.5-8.0)
--- NOTE | 2024-04-05 08:52 | PC.NURSE ---
Pt comes to ED today reporting SI and hopelessness as he is homeless and his substance abuse has affected his relationship. Pt reports he uses ETOH, cocaine, and heroin daily; last use this morning. He reports he would like to be placed in a detox facility. A&Ox3, VSS, afebrile. Pt denies any injuries but reports pain to bilat feet from walking excessively. Pt is calm and cooperative. Care Team eval pending. Pt is currently resting quietly, NAD.
[2024-04-05 09:19] LABS: COVID-19 Test Negative (Negative); IDNOW Serial# 55D5AD1C
[2024-04-05] MEDS: methADONE HCl 20 MG/2 ML ORAL.CONC 30 MG PO (10:08)
--- NOTE | 2024-04-05 11:26 | PC.NURSE ---
Care Team at bedside.
--- NOTE | 2024-04-05 18:24 | PC.NURSE ---
Med rec completed with Pt. Pt reports the only medication he takes is Gabapentin and Ibuprofen. Pt denies and other meds.
[2024-04-05 20:39] VITALS: BP 164/109; PULSE 63; RESP 18; TEMP 36.6; O2SAT 98
--- NOTE | 2024-04-05 20:41 | PC.NURSE ---
Pt b/p 164/109 pt states he takes clonidine for this. notified that med rec was completed for pt to get meds for high b/p. pt also requested ibuprofen for pain. notified.
[2024-04-05 21:00] VITALS: BP 164/109
[2024-04-05] MEDS: cloNIDine HCL 0.1 MG TABLET PO (21:00)
[2024-04-05] MEDS: Gabapentin 400 MG CAPSULE PO (21:00)
[2024-04-05] MEDS: Ibuprofen 800 MG TABLET PO (21:01)
--- NOTE | 2024-04-06 00:01 | PC.NURSE ---
patient appears to remain at rest presently respirations are even and unlabored patient appears in no distress.
[2024-04-06 08:02] VITALS: BP 164/109
[2024-04-06] MEDS: Gabapentin 400 MG CAPSULE PO ×2 (08:02→21:58)
[2024-04-06] MEDS: cloNIDine HCL 0.1 MG TABLET PO ×2 (08:02→21:58)
[2024-04-06 08:05] VITALS: BP 164/99; PULSE 58; RESP 18; TEMP 36.6; O2SAT 99
--- NOTE | 2024-04-06 09:30 | MHC.RECOVRN ---
Received Addiction Medicine consult for fentanyl use. Pt familiar to Addiction Team from previous assessments. Pts UDS positive for buprenorphine. Pt has been receiving Suboxone prescriptions from the [facility]. Most recently, picked up 7 day prescription on 04/02/24 for 16 mg daily. Pt received 30 mg methadone yesterday in the ED. Pt is currently dual diagnosis bedsearch. Discussed with RN and provider, plan to continue 30 mg methadone daily.
[2024-04-06] MEDS: methADONE HCl 20 MG/2 ML ORAL.CONC 30 MG PO (13:16)
--- NOTE | 2024-04-06 15:12 | PC.NURSE ---
Report given to M5 RN.
[2024-04-06 15:49] VITALS: BP 137/69; PULSE 63; RESP 20; TEMP 36.5; O2SAT 98
[2024-04-06 15:50] VITALS: BMI 28.6
[2024-04-06] MEDS: Acetaminophen 325 MG TABLET 650 MG PO (17:21)
--- NOTE | 2024-04-06 17:57 | PC.ADMIT ---
Sudhir is a 48 year old male well known to the CARE team and . He was admitted to today at 1535 with a diagnosis of depression. He self presented to the ED with reports of increasing depression due to life stressors and SI without a plan. He has a history of schizophrenia, MDD, PTSD, anxiety, polysubstance abuse, cocaine use disorder, N-STEMI, and incarceration. In the ED his tox screen was positive for Opiates,Buprenorphine,Fentanyl,Cocaine, Marijuana, and BAL <10. Per?Crisis assessment patient reports he uses 2-3 bags of fentanyl and smokes marijuana daily. He was given methadone 30 mg down in the ED for concern of fentanyl withdrawal and addictions medicine will see him tomorrow for methadone?dosing. Sudhir came up to the unit smiling and friendly, easily engaging in conversation. Skin and safety check done and unremarkable. He was cooperative with the admission process and signed a CV with Dr De Santiago. He currently denies SI/HI/AVH, feels depressed with his life and has vague SI but no plan. He's placed on CIWA q4hrs and scored 2 on arrival. He reports he drinks approximately 1 bottle of [place] 3 times per week. He filled out menu selections and sat in the kitchen social with peers. He's placed on q 15 min safety checks and is appreciative of care given.?
[2024-04-06 20:00] VITALS: BP 127/81; PULSE 57; TEMP 36.9; O2SAT 99
[2024-04-06] MEDS: risperiDONE 3 MG TABLET PO (21:58)
[2024-04-07] VITALS: BP 132/82; PULSE 66; RESP 14; O2SAT 97
[2024-04-07 08:00] VITALS: BP 123/71; PULSE 62; RESP 18; TEMP 37.5; O2SAT 99
[2024-04-07] MEDS: Gabapentin 400 MG CAPSULE PO (08:24)
[2024-04-07] MEDS: cloNIDine HCL 0.1 MG TABLET PO ×2 (08:24→20:29)
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
[2024-04-07 11:44] VITALS: BP 115/88; PULSE 58; RESP 18; TEMP 37.1; O2SAT 99
[2024-04-07] MEDS: methADONE HCl 10 MG TABLET PO (15:35)
[2024-04-07] MEDS: LORazepam 1 MG TABLET PO (17:04)
[2024-04-07] MEDS: Ibuprofen 600 MG TABLET PO (17:04)
[2024-04-07] MEDS: Paliperidone Palmitate 234 MG/1.5 ML SYRINGE IM (19:27)
[2024-04-07 20:00] VITALS: BP 125/80; PULSE 65; RESP 16; TEMP 36.4; O2SAT 100
[2024-04-07] MEDS: risperiDONE 3 MG TABLET PO (20:29)
[2024-04-08 08:04] VITALS: BP 156/96; PULSE 68; RESP 16; TEMP 37.1; O2SAT 98
[2024-04-08 08:50] VITALS: BP 140/82; PULSE 80; RESP 16; TEMP 36.8; O2SAT 100
[2024-04-08] MEDS: cloNIDine HCL 0.1 MG TABLET PO ×2 (08:55→21:06)
[2024-04-08] MEDS: Ibuprofen 600 MG TABLET PO ×2 (09:13→18:13)
[2024-04-08] MEDS: Amoxicillin 500 MG CAPSULE PO ×2 (12:56→21:07)
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
[2024-04-08 19:53] VITALS: BP 145/86; PULSE 69; RESP 18; TEMP 36.6; O2SAT 99
[2024-04-08] MEDS: Acetaminophen 325 MG TABLET 650 MG PO (21:06)
[2024-04-08] MEDS: Magnesium Hydrox/Alum Hydrox 30 ML ORAL.SUSP PO (21:10)
[2024-04-08] MEDS: traZODone HCL 50 MG TABLET PO (23:39)
[2024-04-09] MEDS: Ibuprofen 600 MG TABLET PO ×4 (03:24→23:51)
[2024-04-09] MEDS: Magnesium Hydrox/Alum Hydrox 30 ML ORAL.SUSP PO ×3 (05:07→21:04)
[2024-04-09] MEDS: Acetaminophen 325 MG TABLET 650 MG PO ×2 (05:07→21:05)
[2024-04-09 08:00] VITALS: BP 153/90; PULSE 68; RESP 18; TEMP 36.6; O2SAT 100
[2024-04-09] MEDS: methADONE HCl 20 MG/2 ML ORAL.CONC 5 MG PO (08:21)
[2024-04-09 09:04] VITALS: BP 155/90
[2024-04-09] MEDS: cloNIDine HCL 0.1 MG TABLET PO (09:04)
[2024-04-09] MEDS: Amoxicillin 500 MG CAPSULE PO ×2 (09:06→21:05)
--- NOTE | 2024-04-09 15:31 | HO.PSYCHPN ---
Subjective Subjective Date of Service: 04/09/24 Reason For Visit: Depressed Subjective Notes: Conditional Voluntary Interim History: Patient reports feeling pretty good today; he is unable to elaborate as to what has effected his mood to improve. Pt reports he has not been attending groups d/t not feeling well but will try to attend today. denies SI/HI/VH/AH. [facility] IM scheduled for 04/12/24. Medication Compliance: Yes Side effects from medications: No Mental Status Exam Mental Status Exam Narrative: Pt is alert and oriented; behavior is cooperative and calm; dressed in casual attire; mood is described as good ; eye contact appropriate; Speech is normal rate, volume and not pressured; thought process is organized; Thought content is on tx; denies SI/HI/VH/AH. Diagnostics Vital Signs (24Hr): Vital Signs - 24 hr 04/08/24 19:53 04/09/24 08:00 04/09/24 09:04 Temperature 98 F 97.8 F Pulse Rate 69 68 Respiratory Rate 18 18 Blood Pressure 145/86 H 153/90 H 155/90 H Pulse Oximetry 99 100 Oxygen Delivery Method Room Air Room Air BMI result Body Mass Index 28.6 Labs 04/05/24 08:19 04/05/24 08:19 Medications Medications Current Medications Acetaminophen (Acetaminophen 325 Mg Tablet) 650 mg PO Q6H PRN PRN Reason: Headache/Pain, Scale 1-10 Last Admin: 04/09/24 05:07 Dose: 650 mg Al Hydroxide/Mg Hydroxide (Magnesium Hydrox/Alum Hydrox 30 Ml Oral.Susp) 30 ml PO Q6H PRN PRN Reason: Heartburn/Nausea Last Admin: 04/09/24 11:36 Dose: 30 ml Amoxicillin (Amoxicillin 500 Mg Capsule) 500 mg PO BID [facility] Stop: 04/15/24 21:01 Last Admin: 04/09/24 09:06 Dose: 500 mg Clonidine HCl (Clonidine Hcl 0.1 Mg Tablet) 0.1 mg PO BID [facility]; Protocol Last Admin: 04/09/24 09:04 Dose: 0.1 mg Hydroxyzine HCl (Hydroxyzine Hcl 25 Mg Tablet) 25 mg PO Q6H PRN PRN Reason: mild anxiety Ibuprofen (Ibuprofen 600 Mg Tablet) 600 mg PO Q6H PRN PRN Reason: Pain,Mod(Scale 4-6)/foot pain Last Admin: 04/09/24 10:28 Dose: 600 mg Magnesium Hydroxide (Milk Of Magnesia 30 Ml Oral.Susp) 30 ml PO DAILY PRN PRN Reason: Constipation Methadone HCl (Methadone Hcl 20 Mg/2 Ml Oral.Conc) 5 mg PO DAILY@0800 PRN PRN Reason: opiate withdrawal Stop: 04/10/24 23:00 Last Admin: 04/09/24 08:21 Dose: 5 mg Nicotine (Nicotine 21 Mg Patch.Td24) 21 mg TRANSDERMA DAILY PRN PRN Reason: smoking cessation Nicotine Polacrilex (Nicotine Polacrilex 2 Mg Gum) 4 mg BUCCAL Q2H PRN PRN Reason: Nicotine Cravings Paliperidone Palmitate (Paliperidone Palmitate 156 Mg/Ml Syringe) 156 mg IM ONCE ONE Stop: 04/12/24 09:01 Risperidone (Risperidone 3 Mg Tablet) 3 mg PO BEDTIME SHARIF Stop: 04/12/24 23:59 Last Admin: 04/08/24 22:11 Dose: Not Given Trazodone HCl (Trazodone Hcl 50 Mg Tablet) 50 mg PO BEDTIME MRX1 PRN PRN Reason: Insomnia Last Admin: 04/08/24 23:39 Dose: 50 mg Allergies Allergies Allergy/AdvReac Type Severity Reaction Status Date / Time No Known Allergies Allergy Verified 04/05/24 08:03 [No Known Allergies*] Assessment & Plan Assessment & Plan (1) Schizoaffective disorder, depressive type: Status: Acute Code(s): F25.1 - Schizoaffective disorder, depressive type (2) PTSD (post-traumatic stress disorder): Status: Acute Code(s): F43.10 - Post-traumatic stress disorder, unspecified (3) Cocaine use disorder: Status: Acute Code(s): F14.10 - Cocaine abuse, uncomplicated (4) Opioid use disorder: Status: Acute Code(s): F11.90 - Opioid use, unspecified, uncomplicated Plan Patient is a 48-year-old male with history of schizoaffective disorder, depressed type, PTSD, cocaine, opiate use disorder, hx of NSTEMI s/p cocaine use, past gang affiliation, incarceration who presents for worsening depression and SI in the face of relapse and going off medication. Pt has similar presentation with past admissions. Reports he relapsed on opiates, cocaine and alcohol, stopped medications and got depressed. Discussed medications: Pt initially ambivalent about getting back on medications, but agreed Risperdal was helpful and resolved AH and paranoid delusions; on further discussion he liked the idea of LEONG invega sustenna and wanted to convert from PO to LEONG. He wants Clonidine, but does not want Gabapentin and Discussed Substance abuse: He only wants methadone for detox and remains ambivalent about MAT or substance abuse programs. Plan: CV q15 min Continue risperdal 3mg qhs (DC once gets invega 156mg IM) start Invega Sustenna 234mg IM once; f/u with Invega Sustenna 156mg continue clonidine dc gabapentin continue to discuss tx for addiction 04/08: Keeping to self. laying in bed. Pt reports feeling anxious and depressed today d/t having family problems ; pt did not elaborate. guarded. pt stated, I just want to get stable on my meds and go home ; denies SI/HI/VH/AH. encouraged to attend groups. build rapport. 04/09: Patient reports feeling pretty good today; he is unable to elaborate as to what has effected his mood to improve. Pt reports he has not been attending groups d/t not feeling well but will try to attend today. denies SI/HI/VH/AH. Invega Sustanna IM scheduled for 04/12/24. Patient educated on: diagnosis and medication risk/benefits Reason for continued inpatient stay Substantial Risk for: med/psych decompensation Time Spent With Patient Time: Total time managing care of this patient today _20___ minutes.
[2024-04-09 20:00] VITALS: BP 119/68; PULSE 66; RESP 16; TEMP 36.7; O2SAT 100
[2024-04-10] MEDS: traZODone HCL 50 MG TABLET PO (01:47)
[2024-04-10] MEDS: Acetaminophen 325 MG TABLET 650 MG PO (04:35)
[2024-04-10] MEDS: Ibuprofen 600 MG TABLET PO ×3 (06:14→20:14)
[2024-04-10] MEDS: Magnesium Hydrox/Alum Hydrox 30 ML ORAL.SUSP PO ×2 (06:14→13:25)
--- NOTE | 2024-04-10 07:02 | PC.NURSE ---
Patient continues to have pain to both feet. Tylenol and Ibuprofen have not been effective.
[2024-04-10 08:00] VITALS: BP 164/93; PULSE 68; RESP 18; TEMP 37.4; O2SAT 100
[2024-04-10] MEDS: methADONE HCl 20 MG/2 ML ORAL.CONC 5 MG PO (08:07)
[2024-04-10 08:08] VITALS: BP 164/93
[2024-04-10] MEDS: cloNIDine HCL 0.1 MG TABLET PO ×2 (08:08→23:34)
[2024-04-10] MEDS: Amoxicillin 500 MG CAPSULE PO ×2 (08:09→20:14)
--- NOTE | 2024-04-10 14:40 | P.PNPSI_ITS ---
Subjective Subjective Date of Service: 04/10/24 Reason For Visit: Depressed Subjective Notes: Conditional Voluntary Interim History: Active on unit, social with peers. Patient reports feeling good today; states he is focused on his sobriety. pt stated, I plan on going to meetings and being a Jehovah'S Witness to stay sober . denies SI/HI/VH/AH. Medication Compliance: Yes Side effects from medications: No Attending Groups: Intermittent Mental Status Exam Mental Status Exam Narrative: Pt is alert and oriented; behavior is cooperative and calm; dressed in casual attire; mood is described as good ; eye contact appropriate; Speech is normal rate, volume and not pressured; thought process is organized; Thought content is on tx and sobriety; denies SI/HI/VH/AH. Diagnostics Vital Signs (24Hr): Vital Signs - 24 hr 04/09/24 20:00 04/10/24 08:00 04/10/24 08:08 Temperature 98.0 F 99.3 F Pulse Rate 66 68 Respiratory Rate 16 18 Blood Pressure 119/68 164/93 H 164/93 H Pulse Oximetry 100 100 Oxygen Delivery Method Room Air Room Air BMI result Body Mass Index 30.0 Labs 04/05/24 08:19 04/05/24 08:19 Medications Medications Current Medications Acetaminophen (Acetaminophen 325 Mg Tablet) 650 mg PO Q6H PRN PRN Reason: Headache/Pain, Scale 1-10 Last Admin: 04/10/24 04:35 Dose: 650 mg Al Hydroxide/Mg Hydroxide (Magnesium Hydrox/Alum Hydrox 30 Ml Oral.Susp) 30 ml PO Q6H PRN PRN Reason: Heartburn/Nausea Last Admin: 04/10/24 13:25 Dose: 30 ml Amoxicillin (Amoxicillin 500 Mg Capsule) 500 mg PO BID [facility] Stop: 04/15/24 21:01 Last Admin: 04/10/24 08:09 Dose: 500 mg Clonidine HCl (Clonidine Hcl 0.1 Mg Tablet) 0.1 mg PO BID [facility]; Protocol Last Admin: 04/10/24 08:08 Dose: 0.1 mg Hydroxyzine HCl (Hydroxyzine Hcl 25 Mg Tablet) 25 mg PO Q6H PRN PRN Reason: mild anxiety Ibuprofen (Ibuprofen 600 Mg Tablet) 600 mg PO Q6H PRN PRN Reason: Pain,Mod(Scale 4-6)/foot pain Last Admin: 04/10/24 13:25 Dose: 600 mg Magnesium Hydroxide (Milk Of Magnesia 30 Ml Oral.Susp) 30 ml PO DAILY PRN PRN Reason: Constipation Methadone HCl (Methadone Hcl 20 Mg/2 Ml Oral.Conc) 5 mg PO DAILY@0800 PRN PRN Reason: opiate withdrawal Stop: 04/10/24 23:00 Last Admin: 04/10/24 08:07 Dose: 5 mg Nicotine (Nicotine 21 Mg Patch.Td24) 21 mg TRANSDERMA DAILY PRN PRN Reason: smoking cessation Nicotine Polacrilex (Nicotine Polacrilex 2 Mg Gum) 4 mg BUCCAL Q2H PRN PRN Reason: Nicotine Cravings Omeprazole (Omeprazole 20 Mg Capsule.Dr) 20 mg PO BID@0630,1630 SHARIF Paliperidone Palmitate (Paliperidone Palmitate 156 Mg/Ml Syringe) 156 mg IM ONCE ONE Stop: 04/12/24 09:01 Risperidone (Risperidone 3 Mg Tablet) 3 mg PO BEDTIME SHARIF Stop: 04/12/24 23:59 Last Admin: 04/09/24 21:30 Dose: Not Given Trazodone HCl (Trazodone Hcl 50 Mg Tablet) 50 mg PO BEDTIME MRX1 PRN PRN Reason: Insomnia Last Admin: 04/10/24 01:47 Dose: 50 mg Allergies Allergies Allergy/AdvReac Type Severity Reaction Status Date / Time No Known Allergies Allergy Verified 04/05/24 08:03 [No Known Allergies*] Assessment & Plan Assessment & Plan (1) Schizoaffective disorder, depressive type: Status: Acute Code(s): F25.1 - Schizoaffective disorder, depressive type (2) PTSD (post-traumatic stress disorder): Status: Acute Code(s): F43.10 - Post-traumatic stress disorder, unspecified (3) Cocaine use disorder: Status: Acute Code(s): F14.10 - Cocaine abuse, uncomplicated (4) Opioid use disorder: Status: Acute Code(s): F11.90 - Opioid use, unspecified, uncomplicated Plan Patient is a 48-year-old male with history of schizoaffective disorder, depressed type, PTSD, cocaine, opiate use disorder, hx of NSTEMI s/p cocaine use, past gang affiliation, incarceration who presents for worsening depression and SI in the face of relapse and going off medication. Pt has similar presentation with past admissions. Reports he relapsed on opiates, cocaine and alcohol, stopped medications and got depressed. Discussed medications: Pt initially ambivalent about getting back on medications, but agreed Risperdal was helpful and resolved AH and paranoid delusions; on further discussion he liked the idea of LEONG invega sustenna and wanted to convert from PO to LEONG. He wants Clonidine, but does not want Gabapentin and Discussed Substance abuse: He only wants methadone for detox and remains ambivalent about MAT or substance abuse programs. Plan: CV q15 min Continue risperdal 3mg qhs (DC once gets invega 156mg IM) start Invega Sustenna 234mg IM once; f/u with Invega Sustenna 156mg continue clonidine dc gabapentin continue to discuss tx for addiction 04/08: Keeping to self. laying in bed. Pt reports feeling anxious and depressed today d/t having family problems ; pt did not elaborate. guarded. pt stated, I just want to get stable on my meds and go home ; denies SI/HI/VH/AH. encouraged to attend groups. build rapport. 04/09: Patient reports feeling pretty good today; he is unable to elaborate as to what has effected his mood to improve. Pt reports he has not been attending groups d/t not feeling well but will try to attend today. denies SI/HI/VH/AH. Invega Sustanna IM scheduled for 04/12/24. 04/10: Active on unit, social with peers. Patient reports feeling good today; states he is focused on his sobriety. pt stated, I plan on going to meetings and being a Jehovah'S Witness to stay sober . denies SI/HI/VH/AH. Patient educated on: therapeutic strategies Reason for continued inpatient stay Substantial Risk for: med/psych decompensation Time Spent With Patient Time: Total time managing care of this patient today _20___ minutes.
[2024-04-10] MEDS: Omeprazole 20 MG CAPSULE.DR PO (16:21)
[2024-04-10 20:00] VITALS: BP 127/74; PULSE 68; RESP 15; TEMP 36.9; O2SAT 100
[2024-04-10] MEDS: Melatonin 3 MG TABLET PO (20:15)
[2024-04-10] MEDS: hydrOXYzine HCL 25 MG TABLET PO (23:35)
[2024-04-11] MEDS: traZODone HCL 50 MG TABLET PO (02:15)
[2024-04-11] MEDS: Omeprazole 20 MG CAPSULE.DR PO ×2 (06:57→16:08)
[2024-04-11] MEDS: Acetaminophen 325 MG TABLET 650 MG PO ×2 (06:57→20:55)
[2024-04-11] MEDS: methADONE HCl 20 MG/2 ML ORAL.CONC 5 MG PO (08:01)
[2024-04-11] MEDS: Amoxicillin 500 MG CAPSULE PO ×2 (09:08→20:55)
[2024-04-11] MEDS: cloNIDine HCL 0.1 MG TABLET PO ×2 (09:08→20:55)
[2024-04-11] MEDS: Ibuprofen 600 MG TABLET PO ×2 (09:14→16:08)
[2024-04-11 09:16] VITALS: BP 140/87; PULSE 66; RESP 16; TEMP 36.4; O2SAT 100
--- NOTE | 2024-04-11 09:26 | HO.PSYCHPN ---
Subjective Subjective Date of Service: 04/11/24 Reason For Visit: Depressed Subjective Notes: Conditional Voluntary Healthcare Proxy: No Guardianship: No Medical Problems Affecting Mental Status: No Interim History: Pt seen and discussed with the team. Pt spoke today of really wanting to make changes for himself in how he approaches life and problems of life. Reports a decrease in sleep, discussed titration of melatonin Medication Compliance: Yes Side effects from medications: No Attending Groups: Intermittent Review of Systems Acute medical concerns: No Medical Review of Systems: unchanged Review of Systems Review of Systems heartburn is improved asks for foot cream asks for melatonin increase Mental Status Exam Mental Status Exam Patient Appearance: Appropriate Patient Orientation: Person, Place, Time and Situation Level of Consciousness: Alert Patient Behavior: Talkative and Cooperative Mood Description: Apprehensive Affect Description: Apprehensive Patient Cognition Impaired: No Ability to Follow Directions: Good Speech Pattern: Spontaneous Speech Judgement: Good Diagnostics Vital Signs (24Hr): Vital Signs - 24 hr 04/10/24 20:00 04/11/24 09:16 Temperature 98.5 F 97.5 F Pulse Rate 68 66 Respiratory Rate 15 16 Blood Pressure 127/74 140/87 H Pulse Oximetry 100 100 Oxygen Delivery Method Room Air BMI result Body Mass Index 30.0 Labs 04/05/24 08:19 04/05/24 08:19 Medications Medications Current Medications Acetaminophen (Acetaminophen 325 Mg Tablet) 650 mg PO Q6H PRN PRN Reason: Headache/Pain, Scale 1-10 Last Admin: 04/11/24 06:57 Dose: 650 mg Al Hydroxide/Mg Hydroxide (Magnesium Hydrox/Alum Hydrox 30 Ml Oral.Susp) 30 ml PO Q6H PRN PRN Reason: Heartburn/Nausea Last Admin: 04/10/24 13:25 Dose: 30 ml Amoxicillin (Amoxicillin 500 Mg Capsule) 500 mg PO BID [facility] Stop: 04/15/24 21:01 Last Admin: 04/11/24 09:08 Dose: 500 mg Clonidine HCl (Clonidine Hcl 0.1 Mg Tablet) 0.1 mg PO BID [facility]; Protocol Last Admin: 04/11/24 09:08 Dose: 0.1 mg Hydroxyzine HCl (Hydroxyzine Hcl 25 Mg Tablet) 25 mg PO Q6H PRN PRN Reason: mild anxiety Last Admin: 04/10/24 23:35 Dose: 25 mg Ibuprofen (Ibuprofen 600 Mg Tablet) 600 mg PO Q6H PRN PRN Reason: Pain,Mod(Scale 4-6)/foot pain Last Admin: 04/11/24 09:14 Dose: 600 mg Magnesium Hydroxide (Milk Of Magnesia 30 Ml Oral.Susp) 30 ml PO DAILY PRN PRN Reason: Constipation Melatonin (Melatonin 3 Mg Tablet) 3 mg PO BEDTIME PRN PRN Reason: Insomnia Last Admin: 04/10/24 20:15 Dose: 3 mg Nicotine (Nicotine 21 Mg Patch.Td24) 21 mg TRANSDERMA DAILY PRN PRN Reason: smoking cessation Nicotine Polacrilex (Nicotine Polacrilex 2 Mg Gum) 4 mg BUCCAL Q2H PRN PRN Reason: Nicotine Cravings Omeprazole (Omeprazole 20 Mg Capsule.Dr) 20 mg PO BID@0630,1630 [facility] Last Admin: 04/11/24 06:57 Dose: 20 mg Paliperidone Palmitate (Paliperidone Palmitate 156 Mg/Ml Syringe) 156 mg IM ONCE ONE Stop: 04/12/24 09:01 Risperidone (Risperidone 3 Mg Tablet) 3 mg PO BEDTIME [facility] Stop: 04/12/24 23:59 Last Admin: 04/10/24 20:44 Dose: Not Given Trazodone HCl (Trazodone Hcl 50 Mg Tablet) 50 mg PO BEDTIME MRX1 PRN PRN Reason: Insomnia Last Admin: 04/11/24 02:15 Dose: 50 mg Allergies Allergies Allergy/AdvReac Type Severity Reaction Status Date / Time No Known Allergies Allergy Verified 04/05/24 08:03 [No Known Allergies*] Assessment & Plan Assessment & Plan (1) Schizoaffective disorder, depressive type: Status: Acute Code(s): F25.1 - Schizoaffective disorder, depressive type (2) PTSD (post-traumatic stress disorder): Status: Acute Code(s): F43.10 - Post-traumatic stress disorder, unspecified (3) Cocaine use disorder: Status: Acute Code(s): F14.10 - Cocaine abuse, uncomplicated (4) Opioid use disorder: Status: Acute Code(s): F11.90 - Opioid use, unspecified, uncomplicated Plan Patient is a 48-year-old male with history of schizoaffective disorder, depressed type, PTSD, cocaine, opiate use disorder, hx of NSTEMI s/p cocaine use, past gang affiliation, incarceration who presents for worsening depression and SI in the face of relapse and going off medication. Pt has similar presentation with past admissions. Reports he relapsed on opiates, cocaine and alcohol, stopped medications and got depressed. Discussed medications: Pt initially ambivalent about getting back on medications, but agreed Risperdal was helpful and resolved AH and paranoid delusions; on further discussion he liked the idea of LEONG invega sustenna and wanted to convert from PO to LEONG. He wants Clonidine, but does not want Gabapentin and Discussed Substance abuse: He only wants methadone for detox and remains ambivalent about MAT or substance abuse programs. Plan: CV q15 min Continue risperdal 3mg qhs (DC once gets invega 156mg IM) start Invega Sustenna 234mg IM once; f/u with Invega Sustenna 156mg continue clonidine dc gabapentin continue to discuss tx for addiction 04/08: Keeping to self. laying in bed. Pt reports feeling anxious and depressed today d/t having family problems ; pt did not elaborate. guarded. pt stated, I just want to get stable on my meds and go home ; denies SI/HI/VH/AH. encouraged to attend groups. build rapport. 04/09: Patient reports feeling pretty good today; he is unable to elaborate as to what has effected his mood to improve. Pt reports he has not been attending groups d/t not feeling well but will try to attend today. denies SI/HI/VH/AH. Invega Sustanna IM scheduled for 04/12/24. 04/10: Active on unit, social with peers. Patient reports feeling good today; states he is focused on his sobriety. pt stated, I plan on going to meetings and being a [employer] to stay sober . denies SI/HI/VH/AH. 04/11: Increase Melatonin Dermacin foot cream Reason for continued inpatient stay Substantial Risk for: rapid decompensation Time Spent With Patient Time: Total time managing care of this patient today ____ minutes.
[2024-04-11 19:59] VITALS: BP 141/79; PULSE 72; RESP 15; TEMP 36.8; O2SAT 100
[2024-04-11] MEDS: Melatonin 3 MG TABLET 9 MG PO (22:27)
[2024-04-12] MEDS: Ibuprofen 600 MG TABLET PO ×2 (01:01→16:10)
[2024-04-12] MEDS: traZODone HCL 50 MG TABLET PO ×2 (01:02→02:29)
[2024-04-12] MEDS: hydrOXYzine HCL 25 MG TABLET PO (01:02)
[2024-04-12] MEDS: risperiDONE 3 MG TABLET PO ×2 (02:31→20:16)
[2024-04-12 08:00] VITALS: BP 176/95; PULSE 82; RESP 16; TEMP 36.6; O2SAT 100
[2024-04-12] MEDS: cloNIDine HCL 0.1 MG TABLET PO ×2 (08:07→20:16)
[2024-04-12] MEDS: Amoxicillin 500 MG CAPSULE PO ×2 (08:07→20:16)
[2024-04-12] MEDS: Omeprazole 20 MG CAPSULE.DR PO ×2 (08:07→16:10)
[2024-04-12 09:36] VITALS: BP 139/78; PULSE 88
--- NOTE | 2024-04-12 09:36 | P.PNPSI_ITS ---
Subjective Subjective Date of Service: 04/12/24 Reason For Visit: Depressed Subjective Notes: Conditional Voluntary Healthcare Proxy: No Guardianship: No Medical Problems Affecting Mental Status: No Interim History: Reports poor sleep. Agrees to trial Remeron and klonopin (only while in pt as he did during last admit) Medication Compliance: Yes Mental Status Exam Mental Status Exam Patient Appearance: Appropriate Patient Orientation: Person, Place, Time and Situation Level of Consciousness: Alert Patient Behavior: Talkative and Cooperative Mood Description: Apprehensive Affect Description: Apprehensive Patient Cognition Impaired: No Ability to Follow Directions: Good Speech Pattern: Spontaneous Speech Judgement: Good Diagnostics Vital Signs (24Hr): Vital Signs - 24 hr 04/11/24 19:59 04/12/24 08:00 Temperature 98.3 F 98 F Pulse Rate 72 82 Respiratory Rate 15 16 Blood Pressure 141/79 H 176/95 H Pulse Oximetry 100 100 Oxygen Delivery Method Room Air BMI result Body Mass Index 30.0 Labs 04/05/24 08:19 04/05/24 08:19 Medications Medications Current Medications Acetaminophen (Acetaminophen 325 Mg Tablet) 650 mg PO Q6H PRN PRN Reason: Headache/Pain, Scale 1-10 Last Admin: 04/11/24 20:55 Dose: 650 mg Al Hydroxide/Mg Hydroxide (Magnesium Hydrox/Alum Hydrox 30 Ml Oral.Susp) 30 ml PO Q6H PRN PRN Reason: Heartburn/Nausea Last Admin: 04/10/24 13:25 Dose: 30 ml Amoxicillin (Amoxicillin 500 Mg Capsule) 500 mg PO BID [facility] Stop: 04/15/24 21:01 Last Admin: 04/12/24 08:07 Dose: 500 mg Clonidine HCl (Clonidine Hcl 0.1 Mg Tablet) 0.1 mg PO BID [facility]; Protocol Last Admin: 04/12/24 08:07 Dose: 0.1 mg Hydroxyzine HCl (Hydroxyzine Hcl 25 Mg Tablet) 25 mg PO Q6H PRN PRN Reason: mild anxiety Last Admin: 04/12/24 01:02 Dose: 25 mg Ibuprofen (Ibuprofen 600 Mg Tablet) 600 mg PO Q6H PRN PRN Reason: Pain,Mod(Scale 4-6)/foot pain Last Admin: 04/12/24 01:01 Dose: 600 mg Magnesium Hydroxide (Milk Of Magnesia 30 Ml Oral.Susp) 30 ml PO DAILY PRN PRN Reason: Constipation Melatonin (Melatonin 3 Mg Tablet) 9 mg PO BEDTIME PRN PRN Reason: Insomnia Last Admin: 04/11/24 22:27 Dose: 9 mg Mirtazapine (Mirtazapine 15 Mg Tablet) 15 mg PO BEDTIME [facility] Multi-Ingred Cream/Lotion/Oil/Oint (Mineral Oil/Petrolatum,White 106 Gm Tube) 1 appl TOPICAL BID [facility]; Protocol Nicotine (Nicotine 21 Mg Patch.Td24) 21 mg TRANSDERMA DAILY PRN PRN Reason: smoking cessation Nicotine Polacrilex (Nicotine Polacrilex 2 Mg Gum) 4 mg BUCCAL Q2H PRN PRN Reason: Nicotine Cravings Omeprazole (Omeprazole 20 Mg Capsule.Dr) 20 mg PO BID@0630,1630 [facility] Last Admin: 04/12/24 08:07 Dose: 20 mg Risperidone (Risperidone 3 Mg Tablet) 3 mg PO BEDTIME [facility] Stop: 04/12/24 23:59 Last Admin: 04/12/24 02:31 Dose: 3 mg Trazodone HCl (Trazodone Hcl 50 Mg Tablet) 50 mg PO BEDTIME MRX1 PRN PRN Reason: Insomnia Last Admin: 04/12/24 02:29 Dose: 50 mg Allergies Allergies Allergy/AdvReac Type Severity Reaction Status Date / Time No Known Allergies Allergy Verified 04/05/24 08:03 [No Known Allergies*] Assessment & Plan Assessment & Plan (1) Schizoaffective disorder, depressive type: Status: Acute Code(s): F25.1 - Schizoaffective disorder, depressive type (2) PTSD (post-traumatic stress disorder): Status: Acute Code(s): F43.10 - Post-traumatic stress disorder, unspecified (3) Cocaine use disorder: Status: Acute Code(s): F14.10 - Cocaine abuse, uncomplicated (4) Opioid use disorder: Status: Acute Code(s): F11.90 - Opioid use, unspecified, uncomplicated Plan Patient is a 48-year-old male with history of schizoaffective disorder, depressed type, PTSD, cocaine, opiate use disorder, hx of NSTEMI s/p cocaine use, past gang affiliation, incarceration who presents for worsening depression and SI in the face of relapse and going off medication. Pt has similar presentation with past admissions. Reports he relapsed on opiates, cocaine and alcohol, stopped medications and got depressed. Discussed medications: Pt initially ambivalent about getting back on medications, but agreed Risperdal was helpful and resolved AH and paranoid delusions; on further discussion he liked the idea of LEONG invega sustenna and wanted to convert from PO to LEONG. He wants Clonidine, but does not want Gabapentin and Discussed Substance abuse: He only wants methadone for detox and remains ambivalent about MAT or substance abuse programs. Plan: CV q15 min Continue risperdal 3mg qhs (DC once gets invega 156mg IM) start Invega Sustenna 234mg IM once; f/u with Invega Sustenna 156mg continue clonidine dc gabapentin continue to discuss tx for addiction 04/08: Keeping to self. laying in bed. Pt reports feeling anxious and depressed today d/t having family problems ; pt did not elaborate. guarded. pt stated, I just want to get stable on my meds and go home ; denies SI/HI/VH/AH. encouraged to attend groups. build rapport. 04/09: Patient reports feeling pretty good today; he is unable to elaborate as to what has effected his mood to improve. Pt reports he has not been attending groups d/t not feeling well but will try to attend today. denies SI/HI/VH/AH. Invega Sustanna IM scheduled for 04/12/24. 04/10: Active on unit, social with peers. Patient reports feeling good today; states he is focused on his sobriety. pt stated, I plan on going to meetings and being a [employer] to stay sober . denies SI/HI/VH/AH. 04/11: Increase Melatonin Dermacin foot cream 04/12: Remeron 15 mg HS Klonopin prn (in pt use only) Reason for continued inpatient stay Substantial Risk for: rapid decompensation Time Spent With Patient Time: Total time managing care of this patient today ____ minutes.
[2024-04-12] MEDS: Paliperidone Palmitate 156 MG/ML SYRINGE IM (10:03)
[2024-04-12] MEDS: Ammonium Lactate 12 % Cream 140 GM TUBE 1 APPL TOPICAL (10:04)
[2024-04-12] MEDS: Acetaminophen 325 MG TABLET 650 MG PO ×2 (12:16→20:23)
[2024-04-12] MEDS: clonazePAM 0.5 MG TABLET PO ×2 (12:16→18:41)
[2024-04-12 19:38] VITALS: BP 161/80; PULSE 88; O2SAT 99
[2024-04-12] MEDS: Mirtazapine 15 MG TABLET PO (20:16)
[2024-04-12] MEDS: Melatonin 3 MG TABLET 9 MG PO (20:18)
[2024-04-13] MEDS: hydrOXYzine HCL 25 MG TABLET PO ×3 (01:12→20:08)
[2024-04-13] MEDS: traZODone HCL 50 MG TABLET PO (01:12)
[2024-04-13] MEDS: clonazePAM 0.5 MG TABLET PO ×2 (03:06→13:15)
[2024-04-13] MEDS: Ibuprofen 600 MG TABLET PO ×3 (03:07→20:08)
[2024-04-13] MEDS: Acetaminophen 325 MG TABLET 650 MG PO (07:59)
[2024-04-13] MEDS: Omeprazole 20 MG CAPSULE.DR PO ×2 (07:59→16:39)
[2024-04-13] MEDS: Amoxicillin 500 MG CAPSULE PO ×2 (07:59→20:07)
[2024-04-13 08:00] VITALS: BP 151/93; PULSE 99; RESP 16; TEMP 36.4; O2SAT 100
[2024-04-13] MEDS: cloNIDine HCL 0.1 MG TABLET PO ×2 (08:00→20:08)
--- NOTE | 2024-04-13 08:26 | P.PNPSI_ITS ---
Subjective Subjective Date of Service: 04/13/24 Reason For Visit: Depressed Subjective Notes: Conditional Voluntary Healthcare Proxy: No Guardianship: No Medical Problems Affecting Mental Status: No Interim History: Pt again, unable to sleep for <4 hours. Discussed Ambien trial. Pt reports room-mate is a problem, keeping him awake. Team will attempt to move room-mate (which they were able to do to a private room). Medication Compliance: Yes Side effects from medications: No Attending Groups: Intermittent Review of Systems Acute medical concerns: No Review of Systems Review of Systems denies Mental Status Exam Mental Status Exam Patient Appearance: Appropriate Patient Orientation: Person, Place, Time and Situation Level of Consciousness: Alert Patient Behavior: Talkative and Cooperative Mood Description: Apprehensive Affect Description: Apprehensive Patient Cognition Impaired: No Ability to Follow Directions: Good Speech Pattern: Spontaneous Speech Judgement: Good Diagnostics Vital Signs (24Hr): Vital Signs - 24 hr 04/12/24 09:36 04/12/24 19:38 04/13/24 08:00 Temperature 97.6 F Pulse Rate 88 88 99 Respiratory Rate 16 Blood Pressure 139/78 161/80 H 151/93 H Pulse Oximetry 99 100 Oxygen Delivery Method Room Air Room Air BMI result Body Mass Index 30.0 Labs 04/05/24 08:19 04/05/24 08:19 Medications Medications Current Medications Acetaminophen (Acetaminophen 325 Mg Tablet) 650 mg PO Q6H PRN PRN Reason: Headache/Pain, Scale 1-10 Last Admin: 04/13/24 07:59 Dose: 650 mg Al Hydroxide/Mg Hydroxide (Magnesium Hydrox/Alum Hydrox 30 Ml Oral.Susp) 30 ml PO Q6H PRN PRN Reason: Heartburn/Nausea Last Admin: 04/10/24 13:25 Dose: 30 ml Amoxicillin (Amoxicillin 500 Mg Capsule) 500 mg PO BID [facility] Stop: 04/15/24 21:01 Last Admin: 04/13/24 07:59 Dose: 500 mg Clonazepam (Clonazepam 0.5 Mg Tablet) 0.5 mg PO BID PRN PRN Reason: severe anxiety Last Admin: 04/13/24 03:06 Dose: 0.5 mg Clonidine HCl (Clonidine Hcl 0.1 Mg Tablet) 0.1 mg PO BID [facility]; Protocol Last Admin: 04/13/24 08:00 Dose: 0.1 mg Hydroxyzine HCl (Hydroxyzine Hcl 25 Mg Tablet) 25 mg PO Q6H PRN PRN Reason: mild anxiety Last Admin: 04/13/24 01:12 Dose: 25 mg Ibuprofen (Ibuprofen 600 Mg Tablet) 600 mg PO Q6H PRN PRN Reason: Pain,Mod(Scale 4-6)/foot pain Last Admin: 04/13/24 03:07 Dose: 600 mg Lactic Acid (Ammonium Lactate 12 % Cream 140 Gm Tube) 1 appl TOPICAL BID PRN; Protocol PRN Reason: Dry Skin Last Admin: 04/12/24 10:04 Dose: 1 appl Magnesium Hydroxide (Milk Of Magnesia 30 Ml Oral.Susp) 30 ml PO DAILY PRN PRN Reason: Constipation Melatonin (Melatonin 3 Mg Tablet) 9 mg PO BEDTIME PRN PRN Reason: Insomnia Last Admin: 04/12/24 20:18 Dose: 9 mg Mirtazapine (Mirtazapine 15 Mg Tablet) 15 mg PO BEDTIME [facility] Last Admin: 04/12/24 20:16 Dose: 15 mg Multi-Ingred Cream/Lotion/Oil/Oint (Mineral Oil/Petrolatum,White 106 Gm Tube) 1 appl TOPICAL BID [facility]; Protocol Last Admin: 04/13/24 08:00 Dose: Not Given Nicotine (Nicotine 21 Mg Patch.Td24) 21 mg TRANSDERMA DAILY PRN PRN Reason: smoking cessation Nicotine Polacrilex (Nicotine Polacrilex 2 Mg Gum) 4 mg BUCCAL Q2H PRN PRN Reason: Nicotine Cravings Omeprazole (Omeprazole 20 Mg Capsule.Dr) 20 mg PO BID@0630,1630 [facility] Last Admin: 04/13/24 07:59 Dose: 20 mg Trazodone HCl (Trazodone Hcl 50 Mg Tablet) 50 mg PO BEDTIME MRX1 PRN PRN Reason: Insomnia Last Admin: 04/13/24 01:12 Dose: 50 mg Allergies Allergies Allergy/AdvReac Type Severity Reaction Status Date / Time No Known Allergies Allergy Verified 04/05/24 08:03 [No Known Allergies*] Assessment & Plan Assessment & Plan (1) Schizoaffective disorder, depressive type: Status: Acute Code(s): F25.1 - Schizoaffective disorder, depressive type (2) PTSD (post-traumatic stress disorder): Status: Acute Code(s): F43.10 - Post-traumatic stress disorder, unspecified (3) Cocaine use disorder: Status: Acute Code(s): F14.10 - Cocaine abuse, uncomplicated (4) Opioid use disorder: Status: Acute Code(s): F11.90 - Opioid use, unspecified, uncomplicated Plan Patient is a 48-year-old male with history of schizoaffective disorder, depressed type, PTSD, cocaine, opiate use disorder, hx of NSTEMI s/p cocaine use, past gang affiliation, incarceration who presents for worsening depression and SI in the face of relapse and going off medication. Pt has similar presentation with past admissions. Reports he relapsed on opiates, cocaine and alcohol, stopped medications and got depressed. Discussed medications: Pt initially ambivalent about getting back on medications, but agreed Risperdal was helpful and resolved AH and paranoid delusions; on further discussion he liked the idea of LEONG invega sustenna and wanted to convert from PO to LEONG. He wants Clonidine, but does not want Gabapentin and Discussed Substance abuse: He only wants methadone for detox and remains ambivalent about MAT or substance abuse programs. Plan: CV q15 min Continue risperdal 3mg qhs (DC once gets invega 156mg IM) start Invega Sustenna 234mg IM once; f/u with Invega Sustenna 156mg continue clonidine dc gabapentin continue to discuss tx for addiction 04/08: Keeping to self. laying in bed. Pt reports feeling anxious and depressed today d/t having family problems ; pt did not elaborate. guarded. pt stated, I just want to get stable on my meds and go home ; denies SI/HI/VH/AH. encouraged to attend groups. build rapport. 04/09: Patient reports feeling pretty good today; he is unable to elaborate as to what has effected his mood to improve. Pt reports he has not been attending groups d/t not feeling well but will try to attend today. denies SI/HI/VH/AH. Invega Sustanna IM scheduled for 04/12/24. 04/10: Active on unit, social with peers. Patient reports feeling good today; states he is focused on his sobriety. pt stated, I plan on going to meetings and being a [employer] to stay sober . denies SI/HI/VH/AH. 04/11: Increase Melatonin Dermacin foot cream 04/13: Ambien 10 mg HS x 1 for a trial Reason for continued inpatient stay Substantial Risk for: rapid decompensation Time Spent With Patient Time: Total time managing care of this patient today ____ minutes.
[2024-04-13 19:37] VITALS: BP 157/96; PULSE 92; RESP 15; TEMP 36.6; O2SAT 99
[2024-04-13] MEDS: Melatonin 3 MG TABLET 9 MG PO (20:07)
[2024-04-13] MEDS: Zolpidem Tartrate 5 MG TABLET 10 MG PO (20:07)
[2024-04-13] MEDS: Mirtazapine 15 MG TABLET PO (20:07)
[2024-04-14] MEDS: hydrOXYzine HCL 25 MG TABLET PO ×2 (02:11→20:35)
[2024-04-14] MEDS: Ibuprofen 600 MG TABLET PO ×2 (02:11→20:35)
[2024-04-14] MEDS: traZODone HCL 50 MG TABLET PO (02:11)
[2024-04-14] MEDS: Omeprazole 20 MG CAPSULE.DR PO ×2 (06:58→16:01)
[2024-04-14 08:00] VITALS: BP 185/91; PULSE 98; TEMP 36.9; O2SAT 100
[2024-04-14] MEDS: clonazePAM 0.5 MG TABLET PO ×2 (09:11→15:12)
[2024-04-14 09:12] VITALS: BP 145/91
[2024-04-14] MEDS: Amoxicillin 500 MG CAPSULE PO ×2 (09:12→20:36)
[2024-04-14] MEDS: cloNIDine HCL 0.1 MG TABLET PO ×2 (09:12→20:35)
[2024-04-14] MEDS: Ammonium Lactate 12 % Cream 140 GM TUBE 1 APPL TOPICAL (09:13)
[2024-04-14 20:00] VITALS: BP 131/91; PULSE 126; RESP 18; TEMP 37.7; O2SAT 98
[2024-04-14 20:35] VITALS: BP 131/91
[2024-04-14] MEDS: Mirtazapine 15 MG TABLET PO (20:35)
[2024-04-14] MEDS: Melatonin 3 MG TABLET 9 MG PO (20:39)
--- NOTE | 2024-04-14 21:28 | HO.PSYCHPN ---
Subjective Subjective Date of Service: 04/14/24 Reason For Visit: Depressed Interim History: met with patient; discussed with team; reviewed chart pt struggling, feeling anxious and scared even, expressing concerns that perhaps the nurses put sleeping pills in his food; says they do that in residential however he accepts not the case here. Pt reports no sleep for 2 or 3 days. Discussed medications and it seems that lack of sleep, paranoid thinking correlates with coming off Risperdal, since he got invega Sustenna; he agrees to restart Risperdal now Mental Status Exam Mental Status Exam Narrative: Pt is alert and oriented; behavior is cooperative, but isolative, lying on bed, not talking much...patient is not in distress; dressed in casual attire,adequate hygiene; mood is described as not good and affect congruent, anxious, distressed; eye contact limited; Speech is normal rate, volume and prosody and not pressured; no psychomotor agitation/retardation present; thought process is organized and goal directed; Thought content is on with some paranoid thinking; on psychosocial stressors; tx; denies any SI/HI. denies AVH; Patients insight and judgment impaired. Diagnostics Vital Signs (24Hr): Vital Signs - 24 hr 04/14/24 08:00 04/14/24 09:12 04/14/24 20:00 Temperature 98.5 F 99.8 F Pulse Rate 98 126 H Respiratory Rate 18 Blood Pressure 185/91 H 145/91 H 131/91 H Pulse Oximetry 100 98 Oxygen Delivery Method Room Air Room Air 04/14/24 20:35 Temperature Pulse Rate Respiratory Rate Blood Pressure 131/91 H Pulse Oximetry Oxygen Delivery Method BMI result Body Mass Index 30.0 Labs 04/05/24 08:19 04/05/24 08:19 Medications Medications Current Medications Acetaminophen (Acetaminophen 325 Mg Tablet) 650 mg PO Q6H PRN PRN Reason: Headache/Pain, Scale 1-10 Last Admin: 04/13/24 07:59 Dose: 650 mg Al Hydroxide/Mg Hydroxide (Magnesium Hydrox/Alum Hydrox 30 Ml Oral.Susp) 30 ml PO Q6H PRN PRN Reason: Heartburn/Nausea Last Admin: 04/10/24 13:25 Dose: 30 ml Amoxicillin (Amoxicillin 500 Mg Capsule) 500 mg PO BID SHARIF Stop: 04/15/24 21:01 Last Admin: 04/14/24 20:36 Dose: 500 mg Clonazepam (Clonazepam 0.5 Mg Tablet) 0.5 mg PO BID PRN PRN Reason: severe anxiety Last Admin: 04/14/24 15:12 Dose: 0.5 mg Clonidine HCl (Clonidine Hcl 0.1 Mg Tablet) 0.1 mg PO BID SHARIF; Protocol Last Admin: 04/14/24 20:35 Dose: 0.1 mg Hydroxyzine HCl (Hydroxyzine Hcl 25 Mg Tablet) 25 mg PO Q6H PRN PRN Reason: mild anxiety Last Admin: 04/14/24 20:35 Dose: 25 mg Ibuprofen (Ibuprofen 600 Mg Tablet) 600 mg PO Q6H PRN PRN Reason: Pain,Mod(Scale 4-6)/foot pain Last Admin: 04/14/24 20:35 Dose: 600 mg Lactic Acid (Ammonium Lactate 12 % Cream 140 Gm Tube) 1 appl TOPICAL BID PRN; Protocol PRN Reason: Dry Skin Last Admin: 04/14/24 09:13 Dose: 1 appl Magnesium Hydroxide (Milk Of Magnesia 30 Ml Oral.Susp) 30 ml PO DAILY PRN PRN Reason: Constipation Melatonin (Melatonin 3 Mg Tablet) 9 mg PO BEDTIME PRN PRN Reason: Insomnia Last Admin: 04/14/24 20:39 Dose: 9 mg Mirtazapine (Mirtazapine 15 Mg Tablet) 15 mg PO BEDTIME SHARIF Last Admin: 04/14/24 20:35 Dose: 15 mg Multi-Ingred Cream/Lotion/Oil/Oint (Mineral Oil/Petrolatum,White 106 Gm Tube) 1 appl TOPICAL BID SHARIF; Protocol Last Admin: 04/14/24 09:35 Dose: Not Given Nicotine (Nicotine 21 Mg Patch.Td24) 21 mg TRANSDERMA DAILY PRN PRN Reason: smoking cessation Nicotine Polacrilex (Nicotine Polacrilex 2 Mg Gum) 4 mg BUCCAL Q2H PRN PRN Reason: Nicotine Cravings Omeprazole (Omeprazole 20 Mg Capsule.Dr) 20 mg PO BID@0630,1630 [facility] Last Admin: 04/14/24 16:01 Dose: 20 mg Risperidone (Risperidone 3 Mg Tablet) 3 mg PO BEDTIME SHARIF Trazodone HCl (Trazodone Hcl 50 Mg Tablet) 50 mg PO BEDTIME MRX1 PRN PRN Reason: Insomnia Last Admin: 04/14/24 02:11 Dose: 50 mg Allergies Allergies Allergy/AdvReac Type Severity Reaction Status Date / Time No Known Allergies Allergy Verified 04/05/24 08:03 [No Known Allergies*] Assessment & Plan Assessment & Plan (1) Schizoaffective disorder, depressive type: Status: Acute Code(s): F25.1 - Schizoaffective disorder, depressive type (2) PTSD (post-traumatic stress disorder): Status: Acute Code(s): F43.10 - Post-traumatic stress disorder, unspecified (3) Cocaine use disorder: Status: Acute Code(s): F14.10 - Cocaine abuse, uncomplicated (4) Opioid use disorder: Status: Acute Code(s): F11.90 - Opioid use, unspecified, uncomplicated Plan Patient is a 48-year-old male with history of schizoaffective disorder, depressed type, PTSD, cocaine, opiate use disorder, hx of NSTEMI s/p cocaine use, past gang affiliation, incarceration who presents for worsening depression and SI in the face of relapse and going off medication. Pt has similar presentation with past admissions. Reports he relapsed on opiates, cocaine and alcohol, stopped medications and got depressed. Discussed medications: Pt initially ambivalent about getting back on medications, but agreed Risperdal was helpful and resolved AH and paranoid delusions; on further discussion he liked the idea of LEONG invega sustenna and wanted to convert from PO to LEONG. He wants Clonidine, but does not want Gabapentin and Discussed Substance abuse: He only wants methadone for detox and remains ambivalent about MAT or substance abuse programs. 04/08: Keeping to self. laying in bed. Pt reports feeling anxious and depressed today d/t having family problems ; pt did not elaborate. guarded. pt stated, I just want to get stable on my meds and go home ; denies SI/HI/VH/AH. encouraged to attend groups. build rapport. 04/09: Patient reports feeling pretty good today; he is unable to elaborate as to what has effected his mood to improve. Pt reports he has not been attending groups d/t not feeling well but will try to attend today. denies SI/HI/VH/AH. Invega Sustanna IM scheduled for 04/12/24. 04/10: Active on unit, social with peers. Patient reports feeling good today; states he is focused on his sobriety. 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 denies SI/HI/VH/AH. 04/11: Increase Melatonin Dermacin foot cream 04/13: Ambien 10 mg HS x 1 for a trial 04/14 pt struggling, feeling anxious and scared even, expressing concerns that perhaps the nurses put sleeping pills in his food; says they do that in residential however he accepts not the case here. Pt reports no sleep for 2 or 3 days. -Discussed medications and it seems that lack of sleep, paranoid thinking correlates with coming off Risperdal, since he got invega Sustenna which seems to be not effective (even though it's active metabolite of Risperdal, sometimes does not have same effect); he agrees to restart Risperdal now Plan: CV q15 min RESTART risperdal 3mg qhs (it was DC'd on 04/12 after he got invega 156mg IM) Will give dose of Clonazepam 1mg qhs and add Ambien prn continue clonidine dc gabapentin continue to discuss tx for addiction Patient educated on: diagnosis and medication risk/benefits Informed Consent: understands and further education needed Reason for continued inpatient stay Substantial Risk for: rapid decompensation Time Spent With Patient Time: Total time managing care of this patient today ____ minutes.
[2024-04-14] MEDS: risperiDONE 2 MG TABLET 4 MG PO (22:14)
[2024-04-14] MEDS: clonazePAM 1 MG TABLET PO (22:14)
[2024-04-15] MEDS: Omeprazole 20 MG CAPSULE.DR PO ×2 (06:18→16:11)
[2024-04-15 08:00] VITALS: BP 162/95; PULSE 110; TEMP 36.8; O2SAT 100
[2024-04-15] MEDS: Amoxicillin 500 MG CAPSULE PO ×2 (08:33→20:37)
[2024-04-15 08:34] VITALS: BP 160/105
[2024-04-15] MEDS: cloNIDine HCL 0.1 MG TABLET PO ×2 (08:34→20:37)
--- NOTE | 2024-04-15 09:32 | PC.NURSE ---
Addendum entered by Gelacio Rivera RN 04/15/24 09:34: HR the first time was 110 not 98* Original Note: Pt's BP this morning was 160/105 HR 98. Administered morning meds including Clonidine per APR. Retook his BP 1 hr later and his BP still 162/[address] De Santiago made aware via [employer].
[2024-04-15] MEDS: clonazePAM 0.5 MG TABLET PO (12:58)
[2024-04-15] MEDS: Ibuprofen 600 MG TABLET PO (12:58)
[2024-04-15 19:36] VITALS: BP 165/81; PULSE 110; RESP 16; TEMP 36.8; O2SAT 99
[2024-04-15] MEDS: risperiDONE 2 MG TABLET 4 MG PO (20:36)
[2024-04-15] MEDS: Mirtazapine 15 MG TABLET PO (20:36)
[2024-04-15] MEDS: Melatonin 3 MG TABLET 9 MG PO (20:37)
[2024-04-16] MEDS: Omeprazole 20 MG CAPSULE.DR PO (07:16)
[2024-04-16 08:00] VITALS: BP 138/80; PULSE 110; RESP 16; TEMP 37.2; O2SAT 98
[2024-04-16 08:55] VITALS: BP 132/81
[2024-04-16] MEDS: cloNIDine HCL 0.1 MG TABLET PO ×2 (08:55→20:36)
--- NOTE | 2024-04-16 09:48 | P.PNPSI_ITS ---
Subjective Subjective Date of Service: 04/15/24 Reason For Visit: Depressed Interim History: late entry note for patient seen on 04/15; discussed with team pt reports feeling much better today having started back on Risperdal; he slept better last night, only 4 hours but says it was a welcomed reprieve. Meat Grader agrees that patient is much more clear minded and seems back to his regular self; no paranoid ideations expressed. Meat Grader and pt discussed likely cause of decomp being stopping Risperdal, assuming Invega would be sufficient. He agrees to remain on risperdal. Asking for DC saturday Mental Status Exam Mental Status Exam Narrative: Pt is alert and oriented; behavior is cooperative, organized, friendly and calm; patient is not in distress; dressed in casual attire, well groomed and good hygiene; mood is described as good and affect congruent; eye contact appropriate; Speech is normal rate, volume and prosody and not pressured; no psychomotor agitation/retardation present; thought process is organized and goal directed; Thought content is on tx; otherwise pertinent to relevant topics and without any delusional content, paranoid ideations or grandiosity; denies any SI/HI. There is no evidence of perceptual disturbance. Patients insight and judgment appear intact. Diagnostics Vital Signs (24Hr): Vital Signs - 24 hr 04/15/24 19:36 04/16/24 08:55 Temperature 98.2 F Pulse Rate 110 H Respiratory Rate 16 Blood Pressure 165/81 H 132/81 Pulse Oximetry 99 Oxygen Delivery Method Room Air BMI result Body Mass Index 30.0 Labs 04/05/24 08:19 04/05/24 08:19 Medications Medications Current Medications Acetaminophen (Acetaminophen 325 Mg Tablet) 650 mg PO Q6H PRN PRN Reason: Headache/Pain, Scale 1-10 Last Admin: 04/13/24 07:59 Dose: 650 mg Al Hydroxide/Mg Hydroxide (Magnesium Hydrox/Alum Hydrox 30 Ml Oral.Susp) 30 ml PO Q6H PRN PRN Reason: Heartburn/Nausea Last Admin: 04/10/24 13:25 Dose: 30 ml Clonazepam (Clonazepam 0.5 Mg Tablet) 0.5 mg PO BID PRN PRN Reason: severe anxiety Last Admin: 04/15/24 12:58 Dose: 0.5 mg Clonidine HCl (Clonidine Hcl 0.1 Mg Tablet) 0.1 mg PO BID HSARIF; Protocol Last Admin: 04/16/24 08:55 Dose: 0.1 mg Hydroxyzine HCl (Hydroxyzine Hcl 25 Mg Tablet) 25 mg PO Q6H PRN PRN Reason: mild anxiety Last Admin: 04/14/24 20:35 Dose: 25 mg Ibuprofen (Ibuprofen 600 Mg Tablet) 600 mg PO Q6H PRN PRN Reason: Pain,Mod(Scale 4-6)/foot pain Last Admin: 04/15/24 12:58 Dose: 600 mg Lactic Acid (Ammonium Lactate 12 % Cream 140 Gm Tube) 1 appl TOPICAL BID PRN; Protocol PRN Reason: Dry Skin Last Admin: 04/14/24 09:13 Dose: 1 appl Magnesium Hydroxide (Milk Of Magnesia 30 Ml Oral.Susp) 30 ml PO DAILY PRN PRN Reason: Constipation Melatonin (Melatonin 3 Mg Tablet) 9 mg PO BEDTIME PRN PRN Reason: Insomnia Last Admin: 04/15/24 20:37 Dose: 9 mg Mirtazapine (Mirtazapine 15 Mg Tablet) 15 mg PO BEDTIME SHARIF Last Admin: 04/15/24 20:36 Dose: 15 mg Multi-Ingred Cream/Lotion/Oil/Oint (Mineral Oil/Petrolatum,White 106 Gm Tube) 1 appl TOPICAL BID SHARIF; Protocol Last Admin: 04/15/24 20:37 Dose: Not Given Nicotine (Nicotine 21 Mg Patch.Td24) 21 mg TRANSDERMA DAILY PRN PRN Reason: smoking cessation Nicotine Polacrilex (Nicotine Polacrilex 2 Mg Gum) 4 mg BUCCAL Q2H PRN PRN Reason: Nicotine Cravings Omeprazole (Omeprazole 20 Mg Capsule.Dr) 20 mg PO BID@0630,1630 [facility] Last Admin: 04/16/24 07:16 Dose: 20 mg Risperidone (Risperidone 2 Mg Tablet) 4 mg PO BEDTIME SHARIF Last Admin: 04/15/24 20:36 Dose: 4 mg Trazodone HCl (Trazodone Hcl 50 Mg Tablet) 50 mg PO BEDTIME MRX1 PRN PRN Reason: Insomnia Last Admin: 04/14/24 02:11 Dose: 50 mg Zolpidem Tartrate (Zolpidem Tartrate 5 Mg Tablet) 10 mg PO BEDTIME PRN PRN Reason: continued Insomnia Allergies Allergies Allergy/AdvReac Type Severity Reaction Status Date / Time No Known Allergies Allergy Verified 04/05/24 08:03 [No Known Allergies*] Assessment & Plan Assessment & Plan (1) Schizoaffective disorder, depressive type: Status: Acute Code(s): F25.1 - Schizoaffective disorder, depressive type (2) PTSD (post-traumatic stress disorder): Status: Acute Code(s): F43.10 - Post-traumatic stress disorder, unspecified (3) Cocaine use disorder: Status: Acute Code(s): F14.10 - Cocaine abuse, uncomplicated (4) Opioid use disorder: Status: Acute Code(s): F11.90 - Opioid use, unspecified, uncomplicated Plan Patient is a 48-year-old male with history of schizoaffective disorder, depressed type, PTSD, cocaine, opiate use disorder, hx of NSTEMI s/p cocaine use, past gang affiliation, incarceration who presents for worsening depression and SI in the face of relapse and going off medication. Pt has similar presentation with past admissions. Reports he relapsed on opiates, cocaine and alcohol, stopped medications and got depressed. Discussed medications: Pt initially ambivalent about getting back on medications, but agreed Risperdal was helpful and resolved AH and paranoid delusions; on further discussion he liked the idea of LEONG invega sustenna and wanted to convert from PO to LEONG. He wants Clonidine, but does not want Gabapentin and Discussed Substance abuse: He only wants methadone for detox and remains ambivalent about MAT or substance abuse programs. 04/08: Keeping to self. laying in bed. Pt reports feeling anxious and depressed today d/t having family problems ; pt did not elaborate. guarded. pt stated, I just want to get stable on my meds and go home ; denies SI/HI/VH/AH. encouraged to attend groups. build rapport. 04/09: Patient reports feeling pretty good today; he is unable to elaborate as to what has effected his mood to improve. Pt reports he has not been attending groups d/t not feeling well but will try to attend today. denies SI/HI/VH/AH. Invega Sustanna IM scheduled for 04/12/24. 04/10: Active on unit, social with peers. Patient reports feeling good today; states he is focused on his sobriety. pt stated, I plan on going to meetings and being a [employer] to stay sober . denies SI/HI/VH/AH. 04/11: Increase Melatonin Dermacin foot cream 04/13: Ambien 10 mg HS x 1 for a trial 04/14 pt struggling, feeling anxious and scared even, expressing concerns that perhaps the nurses put sleeping pills in his food; says they do that in longterm however he accepts not the case here. Pt reports no sleep for 2 or 3 days. -Discussed medications and it seems that lack of sleep, paranoid thinking correlates with coming off Risperdal, since he got invega Sustenna which seems to be not effective (even though it's active metabolite of Risperdal, sometimes does not have same effect); he agrees to restart Risperdal now 04/15 pt reports feeling much better today having started back on Risperdal; he slept better last night, only 4 hours but says it was a welcomed reprieve. Meat Grader agrees that patient is much more clear minded and seems back to his regular self; no paranoid ideations expressed. Meat Grader and pt discussed likely cause of decomp being stopping Risperdal, assuming Invega would be sufficient. He agrees to remain on risperdal. Asking for DC saturday Plan: CV q15 min RESTART risperdal 4mg qhs (it was DC'd on 04/12 after he got invega 156mg IM) Will give dose of Clonazepam 1mg qhs and add Ambien prn continue clonidine dc gabapentin continue to discuss tx for addiction Patient educated on: diagnosis and medication risk/benefits Informed Consent: understands Reason for continued inpatient stay Substantial Risk for: stable for discharge, rapid decompensation and med/psych decompensation Time Spent With Patient Time: Total time managing care of this patient today ____ minutes.
--- NOTE | 2024-04-16 09:50 | P.PNPSI_ITS ---
Subjective Subjective Date of Service: 04/16/24 Reason For Visit: Depressed Interim History: met with patient; discussed with team pt reports feeling good and back to regular self; denies any psychotic symptoms and no paranoia expressed; slept, eating well and asking for dc on saturday. Again discussed medication and pt understands that LEONG invega Sustenna is not effective for him Mental Status Exam Mental Status Exam Narrative: Pt is alert and oriented; behavior is cooperative, organized, friendly and calm; patient is not in distress; dressed in casual attire, well groomed and good hygiene; mood is described as good and affect congruent; eye contact appropriate; Speech is normal rate, volume and prosody and not pressured; no psychomotor agitation/retardation present; thought process is organized and goal directed; Thought content is on tx; otherwise pertinent to relevant topics and without any delusional content, paranoid ideations or grandiosity; denies any SI/HI. There is no evidence of perceptual disturbance. Patients insight and judgment appear intact. Diagnostics Vital Signs (24Hr): Vital Signs - 24 hr 04/15/24 19:36 04/16/24 08:55 Temperature 98.2 F Pulse Rate 110 H Respiratory Rate 16 Blood Pressure 165/81 H 132/81 Pulse Oximetry 99 Oxygen Delivery Method Room Air BMI result Body Mass Index 30.0 Labs 04/05/24 08:19 04/05/24 08:19 Medications Medications Current Medications Acetaminophen (Acetaminophen 325 Mg Tablet) 650 mg PO Q6H PRN PRN Reason: Headache/Pain, Scale 1-10 Last Admin: 04/13/24 07:59 Dose: 650 mg Al Hydroxide/Mg Hydroxide (Magnesium Hydrox/Alum Hydrox 30 Ml Oral.Susp) 30 ml PO Q6H PRN PRN Reason: Heartburn/Nausea Last Admin: 04/10/24 13:25 Dose: 30 ml Clonazepam (Clonazepam 0.5 Mg Tablet) 0.5 mg PO BID PRN PRN Reason: severe anxiety Last Admin: 04/15/24 12:58 Dose: 0.5 mg Clonidine HCl (Clonidine Hcl 0.1 Mg Tablet) 0.1 mg PO BID SHARIF; Protocol Last Admin: 04/16/24 08:55 Dose: 0.1 mg Hydroxyzine HCl (Hydroxyzine Hcl 25 Mg Tablet) 25 mg PO Q6H PRN PRN Reason: mild anxiety Last Admin: 04/14/24 20:35 Dose: 25 mg Ibuprofen (Ibuprofen 600 Mg Tablet) 600 mg PO Q6H PRN PRN Reason: Pain,Mod(Scale 4-6)/foot pain Last Admin: 04/15/24 12:58 Dose: 600 mg Lactic Acid (Ammonium Lactate 12 % Cream 140 Gm Tube) 1 appl TOPICAL BID PRN; Protocol PRN Reason: Dry Skin Last Admin: 04/14/24 09:13 Dose: 1 appl Magnesium Hydroxide (Milk Of Magnesia 30 Ml Oral.Susp) 30 ml PO DAILY PRN PRN Reason: Constipation Melatonin (Melatonin 3 Mg Tablet) 9 mg PO BEDTIME PRN PRN Reason: Insomnia Last Admin: 04/15/24 20:37 Dose: 9 mg Mirtazapine (Mirtazapine 15 Mg Tablet) 15 mg PO BEDTIME SHARIF Last Admin: 04/15/24 20:36 Dose: 15 mg Multi-Ingred Cream/Lotion/Oil/Oint (Mineral Oil/Petrolatum,White 106 Gm Tube) 1 appl TOPICAL BID SHARIF; Protocol Last Admin: 04/15/24 20:37 Dose: Not Given Nicotine (Nicotine 21 Mg Patch.Td24) 21 mg TRANSDERMA DAILY PRN PRN Reason: smoking cessation Nicotine Polacrilex (Nicotine Polacrilex 2 Mg Gum) 4 mg BUCCAL Q2H PRN PRN Reason: Nicotine Cravings Omeprazole (Omeprazole 20 Mg Capsule.Dr) 20 mg PO BID@0630,1630 [facility] Last Admin: 04/16/24 07:16 Dose: 20 mg Risperidone (Risperidone 2 Mg Tablet) 4 mg PO BEDTIME SHARIF Last Admin: 04/15/24 20:36 Dose: 4 mg Trazodone HCl (Trazodone Hcl 50 Mg Tablet) 50 mg PO BEDTIME MRX1 PRN PRN Reason: Insomnia Last Admin: 04/14/24 02:11 Dose: 50 mg Zolpidem Tartrate (Zolpidem Tartrate 5 Mg Tablet) 10 mg PO BEDTIME PRN PRN Reason: continued Insomnia Allergies Allergies Allergy/AdvReac Type Severity Reaction Status Date / Time No Known Allergies Allergy Verified 04/05/24 08:03 [No Known Allergies*] Assessment & Plan Assessment & Plan (1) Schizoaffective disorder, depressive type: Status: Acute Code(s): F25.1 - Schizoaffective disorder, depressive type (2) PTSD (post-traumatic stress disorder): Status: Acute Code(s): F43.10 - Post-traumatic stress disorder, unspecified (3) Cocaine use disorder: Status: Acute Code(s): F14.10 - Cocaine abuse, uncomplicated (4) Opioid use disorder: Status: Acute Code(s): F11.90 - Opioid use, unspecified, uncomplicated Plan Patient is a 48-year-old male with history of schizoaffective disorder, depressed type, PTSD, cocaine, opiate use disorder, hx of NSTEMI s/p cocaine use, past gang affiliation, incarceration who presents for worsening depression and SI in the face of relapse and going off medication. Pt has similar presentation with past admissions. Reports he relapsed on opiates, cocaine and alcohol, stopped medications and got depressed. Discussed medications: Pt initially ambivalent about getting back on medications, but agreed Risperdal was helpful and resolved AH and paranoid delusions; on further discussion he liked the idea of LEONG invega sustenna and wanted to convert from PO to LEONG. He wants Clonidine, but does not want Gabapentin and Discussed Substance abuse: He only wants methadone for detox and remains ambivalent about MAT or substance abuse programs. 04/08: Keeping to self. laying in bed. Pt reports feeling anxious and depressed today d/t having family problems ; pt did not elaborate. guarded. pt stated, I just want to get stable on my meds and go home ; denies SI/HI/VH/AH. encouraged to attend groups. build rapport. 04/09: Patient reports feeling pretty good today; he is unable to elaborate as to what has effected his mood to improve. Pt reports he has not been attending groups d/t not feeling well but will try to attend today. denies SI/HI/VH/AH. Invega Sustanna IM scheduled for 04/12/24. 04/10: Active on unit, social with peers. Patient reports feeling good today; states he is focused on his sobriety. pt stated, I plan on going to meetings and being a [employer] to stay sober . denies SI/HI/VH/AH. 04/11: Increase Melatonin Dermacin foot cream 04/13: Ambien 10 mg HS x 1 for a trial 04/14 pt struggling, feeling anxious and scared even, expressing concerns that perhaps the nurses put sleeping pills in his food; says they do that in detention however he accepts not the case here. Pt reports no sleep for 2 or 3 days. -Discussed medications and it seems that lack of sleep, paranoid thinking correlates with coming off Risperdal, since he got invega Sustenna which seems to be not effective (even though it's active metabolite of Risperdal, sometimes does not have same effect); he agrees to restart Risperdal now 04/15 pt reports feeling much better today having started back on Risperdal; he slept better last night, only 4 hours but says it was a welcomed reprieve. [employer]sman agrees that patient is much more clear minded and seems back to his regular self; no paranoid ideations expressed. [employer]sman and pt discussed likely cause of decomp being stopping Risperdal, assuming Invega would be sufficient. He agrees to remain on risperdal. Asking for DC sunday 04/16 remains stable, back to regular self and at baseline, organized in speech and behavior and in good behavioral/impulse control. Proceed with dc planning Plan: CV q15 min Continue risperdal 4mg qhs; will dc on 3mg but temporarily wanted higher dose to expediate recovery to baseline (it was DC'd on 04/12 after he got invega 156mg IM) on dc, will taper off Clonazepam (used just for this admission); discussed with patient who accepts no longer seems to need Ambien continue clonidine dc gabapentin continue to discuss tx for addiction Patient educated on: diagnosis and medication risk/benefits Informed Consent: understands Reason for continued inpatient stay Substantial Risk for: stable for discharge Time Spent With Patient Time: Total time managing care of this patient today ____ minutes.
[2024-04-16] MEDS: clonazePAM 0.5 MG TABLET PO (11:09)
[2024-04-16 20:00] VITALS: BP 134/81; PULSE 119; TEMP 36.7; O2SAT 98
[2024-04-16] MEDS: Melatonin 3 MG TABLET 9 MG PO (20:34)
[2024-04-16] MEDS: Ibuprofen 600 MG TABLET PO (20:35)
[2024-04-16 20:36] VITALS: BP 134/81
[2024-04-16] MEDS: risperiDONE 2 MG TABLET 4 MG PO (20:38)
[2024-04-16] MEDS: Mirtazapine 15 MG TABLET PO (23:02)
[2024-04-16] MEDS: traZODone HCL 50 MG TABLET PO (23:03)
[2024-04-17] MEDS: traZODone HCL 50 MG TABLET PO (02:57)
[2024-04-17] MEDS: Nicotine Polacrilex 2 MG GUM 4 MG BUCCAL (02:57)
[2024-04-17] MEDS: hydrOXYzine HCL 25 MG TABLET PO (05:26)
[2024-04-17] MEDS: Omeprazole 20 MG CAPSULE.DR PO (05:26)
[2024-04-17 08:00] VITALS: BP 157/84; PULSE 103; RESP 18; TEMP 36.4; O2SAT 100
[2024-04-17 08:38] VITALS: BP 155/84
[2024-04-17] MEDS: cloNIDine HCL 0.1 MG TABLET PO (08:38)
--- NOTE | 2024-04-17 08:43 | PM.PSYDC ---
DS: Providers Provider Date of Service: 04/17/24 Date of admission: 04/06/24 14:42 Date of discharge: 04/17/24 Primary care physician: Lara Headley MD Attending physician on admission: Tyler De Santiago Attending physician on discharge: Tyler De Santiago DS: Diagnosis Discharge Diagnosis (1) Schizoaffective disorder, depressive type: Status: Acute (2) PTSD (post-traumatic stress disorder): Status: Acute (3) Cocaine use disorder: Status: Acute (4) Opioid use disorder: Status: Acute DS: Medications Discharge Medications Home Medications: Previous Rx's ?Medication ?Instructions ?Recorded clonazepam 0.5 mg tablet 0.5 mg PO DAILY PRN severe anxiety 04/17/24 10 days #10 tabs clonidine HCl 0.1 mg tablet 0.1 mg PO BID 30 days #60 tabs 04/17/24 hydroxyzine HCl 25 mg tablet 25 mg PO Q6H PRN mild anxiety 30 04/17/24 days #90 tabs melatonin 10 mg tablet 10 mg PO BEDTIME PRN sleep 30 days 04/17/24 #30 tabs mirtazapine 15 mg tablet 15 mg PO BEDTIME 30 days #30 tabs 04/17/24 nicotine (polacrilex) 4 mg gum 4 mg buccal Q2H 30 days #100 ea 04/17/24 omeprazole 20 mg capsule,delayed 20 mg PO BID@0630,1630 30 days #60 04/17/24 release caps risperidone 3 mg tablet 3 mg PO BEDTIME 30 days #30 tabs 04/17/24 trazodone 50 mg tablet 50 mg PO BEDTIME PRN Insomnia 30 04/17/24 days #30 tabs Mental Status Exam Mental Status Exam Narrative: Pt is alert and oriented; behavior is cooperative, organized, friendly and calm; patient is not in distress; dressed in casual attire, well groomed and good hygiene; mood is described as good and affect congruent; eye contact appropriate; Speech is normal rate, volume and prosody and not pressured; no psychomotor agitation/retardation present; thought process is organized and goal directed; Thought content is on tx; otherwise pertinent to relevant topics and without any delusional content, paranoid ideations or grandiosity; denies any SI/HI. There is no evidence of perceptual disturbance. Patients insight and judgment intact DS: Summary Hospital Course Hospital Course: HPI: Patient is a 48-year-old male with history of schizoaffective disorder, depressed type, PTSD, cocaine, opiate use disorder, hx of NSTEMI s/p cocaine use, past gang affiliation, incarceration who presents for worsening depression and SI in the face of relapse and going off medication. Pt has similar presentation with past admissions. Reports he relapsed on opiates, cocaine and alcohol, stopped medications and got depressed. Discussed medications: Pt initially ambivalent about getting back on medications, but agreed Risperdal was helpful and resolved AH and paranoid delusions; on further discussion he liked the idea of LEONG invega sustenna and wanted to convert from PO to LEONG. He wants Clonidine, but does not want Gabapentin and Discussed Substance abuse: He only wants methadone for detox and remains ambivalent about MAT or substance abuse programs. Hospital course: A. Initally patient restarted/continued on home meds of Rispderal PO and soon seemed to return to baseline. 04/08: Keeping to self. laying in bed. Pt reports feeling anxious and depressed today d/t having family problems ; pt did not elaborate. guarded. pt stated, I just want to get stable on my meds and go home ; denies SI/HI/VH/AH. 04/09: Patient reports [mood] is pretty good; he is unable to elaborate as to what has effected his mood to improve. Pt reports he has not been attending groups d/t [physically] not feeling well but will try to attend. denies SI/HI/VH/AH. Invega Sustanna IM scheduled on 04/12; will continue with PO Risperdal until then. 04/10: Active on unit, social with peers. Patient reports feeling good today; states he is focused on his sobriety. pt stated, I plan on going to meetings and being a [employer] to stay sober . denies SI/HI/VH/AH. B. He was being switched to Invega Sustenna and once received. PO risperdal continued. Pt then decompensated. 04/12 Received Invega LEONG IM and PO risperdal discontinued. 04/13: Patient decompensated. Not sleeping and paranoid...given Ambien 10 mg HS x 1 for a trial 04/14 pt struggling, feeling anxious and scared even, expressing concerns that perhaps the nurses put sleeping pills in his food; says they do that in detention however he accepts not the case here. Pt reports no sleep for 2 or 3 days. -Discussed medications and it seems that lack of sleep, paranoid thinking correlates with coming off Risperdal, since he got invega Sustenna which seems to be not effective (even though it's active metabolite of Risperdal, sometimes does not have same effect); he agrees to restart Risperdal now C. Patient restarted on Risperdal PO 04/15 pt reports feeling much better today having started back on Risperdal; he slept better last night, only 4 hours but says it was a welcomed reprieve. Station Installer And Repairer agrees that patient is much more clear minded and seems back to his regular self; no paranoid ideations expressed. Station Installer And Repairer and pt discussed likely cause of decomp being stopping Risperdal, assuming Invega would be sufficient. He agrees to remain on risperdal. Asking for DC sunday 04/16 remains stable, back to regular self and at baseline, organized in speech and behavior and in good behavioral/impulse control. Proceed with dc planning On Discharge pt remains at baseline, in good mood, cooperative, friendly, organized, future oriented and hopeful. Not in imminent risk for harm to self or others and appropriate to return to the community for treatment. Regarding MAT: Earlier in admission, discussed Substance abuse and patient only wanted methadone for detox and remains ambivalent about MAT; did not want substance abuse programs. At some point patient changed his mind and wanted to get on Suboxone and had SW set up Suboxone appointment. Station Installer And Repairer discussed this with patient. Although he has been getting scripts for Suboxone, he acknowledges he has not been taking it himself (likely diverting); however, he now feels he needs it to remain sober and very much wants to get on it before discharging. Pt has been on it in the past and found it effective and well tolerated. Prior to discharge, Station Installer And Repairer initiated suboxone treatment (which was well tolerated); gave scripts with plan for titration post discharge to help him remain sober until outpt suboxone appointment. Medications: Continue risperdal 3mg qhs Received Invega Sustenna 234mg and then 156mg; not effective Was given Clonazepam on unit; gave scripts to taper off and dc Discontinued gabapentin; does not want or need Time spent discussing smoking cessation with patient: 3 to 10 minutes Status at Discharge Functional status at discharge: independent ambulation Overall status at discharge: patient is back to baseline Time Spent with Patient Time attestation: Total time managing care of this patient today _50___ minutes. Time spent: Greater than 30 minutes Specific discharge activities: met with patient several times; discussed with team; scripts Discharge Plan Discharge Anticipated Discharge Date/Time: 04/17/24 11:30 Patient Disposition: Home, Self-Care Discharge Diagnosis: Schizoaffective disorder, bipolar type Referrals: [facility] [place] [Other] - 04/23/24 2:45 pm ([facility] is recommending intake with [facility] for community support and services including a phone. Pt will be bridged with Suboxone by [facility] until this appt.) [facility] - 04/30/24 3:45 pm [facility] [Other] - 3-5 Days (Sangeetha works with care management to help with getting you set up with services in the community, like filling out referrals, seeking employment, housing support. ) Lara Headley MD [Primary Care Provider] - 04/30/24 10:45 am ([facility]IGHTON is recommending therapy referral.) Discharge Medications: New nicotine (polacrilex) 4 mg gum 4 mg buccal Q2H 30 Days Qty: 100 0RF clonazepam 0.5 mg Tablet 0.5 mg PO DAILY PRN (Reason: severe anxiety) 10 Days Qty: 10 0RF hydroxyzine HCl 25 mg Tablet 25 mg PO Q6H PRN (Reason: mild anxiety) 30 Days Qty: 90 0RF mirtazapine 15 mg Tablet 15 mg PO BEDTIME 30 Days Qty: 30 0RF risperidone 3 mg tablet 3 mg PO BEDTIME 30 Days Qty: 30 0RF trazodone 50 mg Tablet 50 mg PO BEDTIME PRN (Reason: Insomnia) 30 Days Qty: 30 0RF omeprazole 20 mg Capsule,Delayed Release(Dr/Ec) 20 mg PO BID@0630,1630 30 Days Qty: 60 0RF melatonin 10 mg tablet 10 mg PO BEDTIME PRN (Reason: sleep) 30 Days Qty: 30 0RF buprenorphine-naloxone [Suboxone] 8-2 mg film 1 film buccal BID 7 Days Qty: 13 0RF Continued clonidine HCl 0.1 mg tablet 0.1 mg PO BID 30 Days Qty: 60 0RF Discontinued gabapentin 400 mg capsule 400 mg PO BID 30 Days Qty: 60 1RF Discharge Orders: Discharge Order (Routine); Ordered 04/17/24 Ordered By: Tyler De Santiago Diet: Regular diet Activity on Discharge: As tolerated Stand Alone Forms: Patient Portal Discharge page, Community Support Print Language: [place]ese Care Plan Goals: Maintain mood and safe behaviors Take medications as prescribed Continue to pursue sobriety Practice coping skills Continue with outpatient providers and reach out to them as needed Health Concerns: Mood stability and behaviors Sobriety GERD Plan of Treatment: Follow up with your PCP, psychiatric provider and other outpatient providers regarding above concerns Take medications as prescribed Assessment: Risk assessment at time of discharge:? Patient was interviewed prior to discharge and found to be fully oriented and without any SI or HI. Patient has improved insight and judgment and wants to continue treatment. Patient is not in imminent risk of harm to self or others and has a safety plan that includes presenting to the closest ER or calling 911 if feeling unsafe.? Patient has been observed closely by nursing and unit staff throughout admission; patient has not engaged in any behaviors that suggest dangerousness to self or others and has demonstrated appropriate behaviors and impulse control Discharge Date/Time: 04/17/24 11:00
[2024-04-17] MEDS: Naloxone HCl Nasal TAKE HOME 4 MG SPRAY 8 MG NOSTRILALT (10:19)
[2024-04-17] MEDS: Buprenorphine/Naloxone 4/1 mg FILM 1 FILM SUBLINGUAL (10:19)
== END 2024-04-17 11:00 | disposition home or self-care (01) | DRG 750 ==
LOC: HO.ED 12:54 → HO.PM5 04-06 14:58
PROVIDERS: Physician Assistant Medical; Admitting Provider Psychiatry & Neurology Psychiatry; Emergency Provider Emergency Medicine; PCP Internal Medicine; Visit Provider Psychiatry & Neurology Psychiatry
DX: F25.1 Schizoaffective disorder, depressive type (principal); F11.20 Opioid dependence, uncomplicated; F43.10 Post-traumatic stress disorder, unspecified; F14.10 Cocaine abuse, uncomplicated; Z20.822 Contact with and (suspected) exposure to COVID-19; Z79.899 Other long term (current) drug therapy
CPT/HCPCS: 80053; 80143; 80179; 80307; 81003; 85025; 87635; 93005; 99285; J2426; S9485

== ENCOUNTER → 2024-04-05 08:10 | Outpatient (BNV) | payer MEDICAID, SELFPAY | PROVIDERS: Emergency Provider Emergency Medicine; PCP Internal Medicine; Visit Provider Internal Medicine Cardiovascular Disease | DX: R00.1 Bradycardia, unspecified (principal) | CPT/HCPCS: 93010 ==

== ENCOUNTER → 2024-04-06 14:42 | Outpatient (BNV) | payer OTHER, SELFPAY | PROVIDERS: Admitting Provider Psychiatry & Neurology Psychiatry; Emergency Provider Emergency Medicine; PCP Internal Medicine; Visit Provider Psychiatry & Neurology Psychiatry | DX: F25.1 Schizoaffective disorder, depressive type (principal); F14.10 Cocaine abuse, uncomplicated; F11.90 Opioid use, unspecified, uncomplicated; F43.11 Post-traumatic stress disorder, acute | CPT/HCPCS: 99232 ==

== ENCOUNTER 2024-04-26 14:29 | Inpatient (IN) | payer MEDICAID, OTHER, SELFPAY ==
[2024-04-26 14:44] VITALS: BP 176/101; PULSE 78; RESP 16; TEMP 36.1; O2SAT 97; BMI 36.1
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
--- OUTSIDE RECORDS SUMMARY | 2024-04-26 15:16 | XMS_ITS | Encounter Summary ---
Author Organization [employer] Address 75 [facility] 7t [place] [address] Care Team Providers Care Supervisor Gate Services Name Role Phone Lara Headley MD Primary Care Provider + Reason for Visit * Reason Comments RC Recovery Supports Encounter Details Date Type Department Care Team ([facility] st Contact Info) Description 04/23/2024 Patient Outreach [facility] [address] [place], [place] [phone] Sharif Rider [address] [place] [address] Recovery Supports Social History Tobacco Use Types Packs/Day Years Used Date Smoking Tobacco: Never Passive Smoke Exposure: Never Smokeless Tobacco: Never Alcohol Use Standard Drinks/Week Comments Never 0 (1 standard drink = 0.6 oz pur e alcohol) Alcohol Answer Date Recorded How often do you have a drink containing alcohol ? 1 04/23/2024 How many drinks containing a lcohol do you have on a typical day when you are drinking? 3 04/23/2024 How often do you have six or more drinks on one occasion? 2 04/23/2024 Depression Answer Date Recorded Patient Health Questionnaire-9 Score 3 04/23/2024 Patient Health Questionnaire-9 Score 3 04/23/2024 Last PHQ-9: Questionnaire Data Not on file 0 04/23/2024 Housing Stability Answer Date Recorded What is your housing situation today? I have maria teresa mejia 09/13/[address] you li ve. Do you have problems with any of the following? None of the above 09/13/2023 Food Insecurity Answer Date Recorded Within the past 12 months, y ou worried that your food would run out before you got money to buy more: Never True 09/13/2023 Within the past 12 months,th e food you bought just didn't last and you didn't have enough money to get more: Never True Transportation Answer Date Recorded In the past 12 months, has l ack of transportation kept you from medical appts, meetings, work or from getting things needed for daily living? No 09/13/2023 Utilities Answer Date Recorded In the past 12 months, has t he electric, gas, oil or water company threatened to shut off services in your home? No 09/13/2023 Depression Answer Date Recorded Patient Health Questionnaire-2 Score 2 04/23/2024 Internet Access Answer Date Recorded Internet Access Q1 Yes 10/28/2023 Internet Access Q2 Not on file 10/28/2023 Sex and Gender Information Value Date Recorded Sex Assigned at Male 12/25/2021 10:18 AM EDT Legal Sex Male 10:18 AM EDT Gender Identity Male 12/25/2021 10:18 AM EDT Sexual Orientation Straight 12/25/2021 10 :18 AM EDT documented as of this encounter Progress Notes * Sharif Rider - 04/23/2024 11:13 AM EST I met with Sudhir today. Setting: in person at [facility] Recovery Wellness Goals worked on: Physical Health/Mental Health and Social Stability Action taken/next steps: Referred to medical or behavioral health professional, Facilitated access to technology resources (computer support), and Attended alcohol and drug free activity Additional comments: Referred to clinician Sharif Rider documented in this encounter Plan of Treatment Upcoming Encounters Date Type Department Care Team (Late st Contact Info) Description 04/30/2024 10:45 AM EST Office Visit [facility] [address] [place] [address] Lara Headley MD [address] [place] [address] 04/30/2024 3:45 PM EST Office Visit [facility] [address] [place] [address] Dalia El MD [address] [place] [address] 05/07/2024 2:30 PM EDT Office Visit [facility] [address] [place] [address] Dalia El MD [address] [place] [address] 05/25/2024 1:30 PM EDT Office Visit [facility] AD[facility] D[facility] [address] [place], [place] [phone] Armand Prieto DDS [address] [place] [address] documented as of this encounter Visit Diagnoses Not on filedocumented in this encounter Additional Health Concerns Assessment Noted Time PHQ-9 Depression Total Score: 3 04/23/19 25 11:02 AM EST documented as of this encounter Care Teams Supervisor Gate Services Relationship Specialty Start Date End Date Lara Headley MD [address] [place] [address] PCP - General Family Medicine 08/31/16 documented as of this encounter
--- OUTSIDE RECORDS SUMMARY | 2024-04-26 15:16 | XMS_ITS | Encounter Summary ---
Author Organization [employer] Address 75 [facility] 7t [place] [address] Care Team Providers Care Thermodynamics Teacher Name Role Phone Lara eHadley MD Primary Care Provider + Reason for Visit * Reason Onset Date Comments Med Refill 03/30/2024 Encounter Details Date Type Department Care Team (Late st Contact Info) Description 03/30/[address] [facility] [address] [place] [address] Richard Woods, EMILY [address] [place] [address] Opioid dependence, uncomplicated (CMS/HCC) Social History Tobacco Use Types Packs/Day Years Used Date Smoking Tobacco: Never Passive Smoke Exposure: Never Smokeless Tobacco: Never Alcohol Use Standard Drinks/Week Comments Never 0 (1 standard drink = 0.6 oz pur e alcohol) Depression Answer Date Recorded Patient Health Questionnaire-9 Score 3 09/30/2023 Patient Health Questionnaire-9 Score 3 09/30/2023 Last PHQ-9: Questionnaire Data Not on file 0 09/30/2023 Housing Stability Answer Date Recorded What is [...] Date Recorded Patient Health Questionnaire-2 Score 2 09/30/2023 Internet Access Answer Date Recorded Internet Access Q1 Yes 10/28/2023 Internet Access Q2 Not on file 10/28/2023 Sex and Gender Information Value Date Recorded Sex Assigned at Male 12/25/2021 10:18 AM EDT Legal Sex Male 10:18 AM EDT Gender Identity Male 12/25/2021 10:18 AM EDT Sexual Orientation Straight 12/25/2021 10 :18 AM EDT documented as of this encounter Plan of Treatment Upcoming Encounters Date Type Department Care Team (Late st Contact Info) Description 04/30/2024 10:45 AM EST Office Visit [facility] [address] [place] [address] Lara Headley MD [address] [place] [address] 04/30/2024 3:45 PM EST Office Visit [facility] [address] [place] [address] Dalia El MD [address] [place] [address] 05/07/2024 2:30 PM EDT Office Visit [facility] [address] [place] [address] Dalia El MD [address] [place] [address] 05/25/2024 1:30 PM EDT Office Visit [facility] ADULT DENTAL [address] [place] [address] Armand Prieto DDS [address] [place] [address] documented as of this encounter Visit Diagnoses Diagnosis Opioid dependence, uncomplicated (CMS/HCC) documented in this encounter Additional Health Concerns Assessment Noted Time PHQ-9 Depression Total Score: 3 09/30/19 24 10:01 AM EDT documented as of this encounter Care Teams Thermodynamics Teacher Relationship Specialty Start Date End Date Lara Headley MD [address] [place] [address] PCP - General Family Medicine 08/31/16 documented as of this encounter
--- OUTSIDE RECORDS SUMMARY | 2024-04-26 15:16 | XMS_ITS | Encounter Summary ---
Author Organization [employer] Address [address] [facility] [address] 7t [place] [address] Care Team Providers Care Optical Goods Worker Name Role Phone Lara Headley MD Primary Care Provider + Encounter Details Date Type Department Care Team (Latest Contact Info) Description 04/16/2024 Travel Social History Tobacco Use Types Packs/Day Years [...] Description 04/30/2024 10:45 AM EST Office Visit [facility] [address] [place] [address] Lara Headley MD [address] [place] [address] 04/30/2024 3:45 PM EST Office Visit [address] [address] Dalia El MD [address] [place] [address] 05/07/2024 2:30 PM EDT Office Visit [address] [address] Dalia El MD [address] [place] [address] 05/25/2024 1:30 PM EDT Office Visit [facility] ADULT DENTAL [address] [place] [address] Armand Prieto DDS [address] [place] [address] documented as of this encounter Visit Diagnoses Not on filedocumented in this encounter Additional Health Concerns Assessment Noted Time PHQ-9 Depression Total Score: 3 09/30/19 24 10:01 AM EDT documented as of this encounter Care Teams Optical Goods Worker Relationship Specialty Start Date End Date Lara Headley MD [address] [place] [phone] PCP - General Family Medicine 08/31/16 documented as of this encounter
--- OUTSIDE RECORDS SUMMARY | 2024-04-26 15:16 | XMS_ITS | Encounter Summary ---
Author Organization [employer] Address [address] [facility] [address] 7t [place] [address] Care Team Providers Care Mine Analyst Name Role Phone Lara Headley MD Primary Care Provider + Encounter Details Date Type Department Care Team (Latest Contact Info) Description 04/23/2024 Travel Social History Tobacco Use Types Packs/Day [...] Description 04/30/2024 10:45 AM EST Office Visit [facility] [address] [place] [phone] Lara Headley MD [address] [place] [address] 04/30/2024 3:45 PM EST Office Visit [facility] [address] [place] [address] Dalia El MD [address] [place] [address] 05/07/2024 2:30 PM EDT Office Visit [facility] [address] [place] [address] Dalia El MD [address] [place] [address] 05/25/2024 1:30 PM EDT Office Visit [facility] ADULT DENTAL [address] [place] [address] Armand Prieto DDS [address] [place] [address] documented as of this encounter Visit Diagnoses Not on filedocumented in this encounter Additional Health Concerns Assessment Noted Time PHQ-9 Depression Total Score: 3 04/23/19 25 11:02 AM EST documented as of this encounter Care Teams Mine Analyst Relationship Specialty Start Date End Date Lara Headley MD [address] [place] [phone] PCP - General Family Medicine 08/31/16 documented as of this encounter
--- OUTSIDE RECORDS SUMMARY | 2024-04-26 15:16 | XMS_ITS | Encounter Summary ---
Author Organization [employer] Address 75 [facility] 7t [place] [address] Care Team Providers Care Embedded Software Developer Name Role Phone aLra Headley MD Primary Care Provider + Reason for Visit * Reason Comments OBAT Encounter Details Date Type Department Care Team (Latest Contact Info) Description 03/27/2024 11:30 AM EST Clinical Support [facility] [address] [place], [place] [phone] Richard Woods, EMILY [address] [place] [address] Opioid dependence, uncomplicated (CMS/HCC) (Primary Dx) Social History Tobacco Use Types Packs/Day Years [...] as of this encounter Progress Notes * Richard Woods RN - 03/27/2024 11:30 AM EST Patient here today for Opioid Dependence RV. Patient on current Suboxone dose of 16/4 mg on a 1 week schedule. Patient has been in the program for 6 weeks. Induction date: 02/10/24. LFTs done 02/11/24. Patient actively enrolled in behavioral health services, psychiatrist Dr. Stuart. JARRETT MCKEON reviewed by provider. Last PCP appt 11/25/23. Smoking status: former smoker. Last Visit 03/20/24 +tess fen Sudhir is here 1 day late for appt. He is not doing well, using and not taking Suboxone daily. Considering detox, but does not want to go now. States he will come back Saturday morning for assistance with getting a detox bed. Discussed options for detox and follow up after. Discussed his past successon methadone. He will consider methadone again s/p detox. Met with Sharif CONTRERAS. TODAY 03/27/24 +tess, mtd, bup Sudhir is here today after being discharged from [facility]. States he was there to kick the fentanyl . States he was given methadone while he was there and then transitioned to Suboxone. He states he would like to stay on Suboxone vs methadone. Will reassess next week. Plan: Suboxone dosing schedule of 16/4 mg daily and management of side effects reviewed. Recovery support, harm reduction (including Narcan), and behavioral health attendance reviewed. Appointment for 1 week given. Patient expressed understanding and agreement with continuing plan of care. This information has been disclosed to you from records protected by federal confidentiality rules (42 CFR Part 2). The federal rules prohibit you from making any further disclosure of information inthis record that identifies a patient as having or having had a substance use disorder either directly, by reference to publicly available information, or through verification of such identification by another person unless further disclosure is expressly permitted by the written consent of the individual whose information is being disclosed or as otherwise permitted by (see2.3.1). The federal rules restrict any use of the information to investigate or prosecute with regard to a crime any patient with a substance use disorder, except as provided at 2.12??(5) and 2.65. documented in this encounter Plan of Treatment Upcoming Encounters Date Type Department Care Team (Late st Contact Info) Description 04/30/2024 10:45 AM EST Office Visit [facility] [address] [place] [address] Lara Headley MD [address] [place] [address] 04/30/2024 3:45 PM EST Office Visit [facility] [address] [place] [address] Dalia El MD [address] [place] [address] 05/07/2024 2:30 PM EDT Office Visit [facility] [address] [place] [address] Dalia El MD [address] [place] [address] 05/25/2024 1:30 PM EDT Office Visit [facility] ADULT DENTAL [address] [place] [address] Armand Prieto DDS [address] [place] [address] documented as of this encounter Procedures Procedure Name Priority Date/Time Associated Diagnosis Comments POCT RIN-14 URINE DRUG SCREEN Routine 03/27/2024 11:02 AM EST Opioid dependence, uncomplicated (CMS/HCC) documented in this encounter Results * POCT RIN-14 Urine Drug Screen (03/27/2024 11:02 AM EST) THC Negative Cocaine Screen, Urine Positive Opiate Screen, Urine Negative Methamphetamine Screen Urine Negative Amphetamine Screen, Urine Negative Benzodiazepines Screen, Urine Negative Barbiturate Screen, Urine Negative Methadone Screen, Urine Positive Buprenophine Screen, Urine Positive TCA, Urine Positive MDMA Urine Negative ng/mL Oxycodone Screen, Urine Negative Phencyclidine (PCP), Urine Negative Propoxyphene, Urine Negative Fentanyl, Urine Negative Urine Urine specimen obtained by clean catch procedure / Unknown 03/27/2024 11:02 AM EST Bulmaro Levine MD POINT OF CARE TEST ENTER/EDIT ORDERABLES Final Result documented in this encounter Visit Diagnoses Diagnosis Opioid dependence, uncomplicated (CMS/HCC)- Primary documented in this encounter Additional Health Concerns Assessment Noted Time PHQ-9 Depression Total Score: 3 09/30/19 24 10:01 AM EDT documented as of this encounter Care Teams Embedded Software Developer Relationship Specialty Start Date End Date Lara Headley MD [address] [place] [address] PCP - General Family Medicine 08/31/16 documented as of this encounter
--- OUTSIDE RECORDS SUMMARY | 2024-04-26 15:16 | XMS_ITS | Encounter Summary ---
Author Organization [employer] Address 75 [facility] 7t [place] [address] Care Team Providers Care Human Resources Partner Name Role Phone Lara Headley MD Primary Care Provider + Reason for Visit * Reason Comments OBAT Encounter Details Date Type Department Care Team (Latest Contact Info) Description 04/23/2024 2:45 PM EST Office Visit [facility] [address] [place], [place] [phone] Dalia El MD [address] [place], [place] [phone] Opioid dependence, uncomplicated (CMS/HCC) (Primary Dx); Schizoaffective disorder, depressive type (CMS/HCC) Social History Tobacco Use Types Packs/Day [...] the past 12 months, has t he [employer], gas, oil or water company threatened to [...] as of this encounter Progress Notes * Dalia El MD - 04/23/2024 2:45 PM EST Patient here today for Opioid Dependence RV. Patient on current Suboxone dose of 16/4 mg on a 1 week schedule. Patient has been in the program for 11 weeks. Induction date: 02/10/24. LFTs done 02/11/24. Patient actively enrolled in behavioral health services, psychiatrist Dr. Stuart. JARRETT PAT reviewed by provider. Last PCP appt 11/25/23. Smoking status: former smoker. Last Visit -04/02/24 Sudhir is being seen for OBAT services. He continues to use multiple substances. Cites stress as a trigger for use. He continues to live in the sober house in [place]. We discussed the possibility of detox today, which I strongly recommend. He is resistant and statesthat he has a lot going on right now. DIANE Rider will speak with him today about opportunities for detox. TODAY-04/23/24 POS:ARISTEO ONLY Subjective Patient ID: Sudhir Morales is a 48 y.o. male who presents for OBAT. Sudhir is being seen for OBAT services. He has been in and out of the ED with mental health issues. States that he got an injection whilehospitalized and it really helped. Had a BE with Swapna this morning. Got a one week Rx for Suboxone s/p hospitalization on 04/17 but states that he doesn't have any and is not taking it. Last used fentanyl about three days ago. Denies SI. Review of Systems Psychiatric/Behavioral: Positive for dysphoric mood. The patient is nervous/anxious. Objective Physical Exam Constitutional: Appearance: Normal appearance. She is well-developed. Skin: General: Skin is warm and dry. Neurological: General: No focal deficit present. Mental Status: She is alert and oriented to person, place, and time. Mental status is at baseline. Psychiatric: Mood and Affect: Mood normal. Behavior: Behavior normal. Assessment/Plan Diagnoses and all orders for this visit: Opioid dependence, uncomplicated ([facility]) Counseling provided RE: importance of multiple sources of support for achieving and maintaining recovery. Counseling RE: harm reduction measures, ie, not using alone, the use of clean needles/equipment, Narcan. Discussed strategies to use when confronted with situations that trigger use. Continue current Suboxone dose. Continue weekly visits. - POCT RIN-14 Urine Drug Screen - Buprenorphine HCl-Naloxone HCl (Suboxone) 8-2 MG SL film; Place 2 Film under the tongue Once perday for 7 days. Schizoaffective disorder, depressive type ([facility]) Continue services with Daniellaebenfortino. Anticipate referral to N[facility] Fraire for psychiatric services. This information has been disclosed to you [...] Office Visit [facility] [address] [place] [address] Lara Headley MD [address] [place] [address] 04/30/2024 3:45 PM EST Office Visit [address] [address] Dalia El MD [address] [place] [address] 05/07/2024 2:30 PM EDT Office Visit [address] [address] Dalia El MD [address] [place] [address] 05/25/2024 1:30 PM EDT Office Visit [facility] D[facility]AL [address] [place] [address] Armand Prieto DDS [address] [place] [address] documented as of this encounter Procedures Procedure Name Priority Date/Time Associated Diagnosis Comments POCT RIN-14 URINE DRUG SCREEN Routine 04/23/2024 1:11 PM EST Opioid dependence, uncomplicated ([facility]) documented in this encounter Results * POCT RIN-14 Urine Drug Screen (04/23/2024 1:11 PM EST) THC Negative Cocaine Screen, Urine Positive Opiate Screen, Urine Negative Methamphetamine Screen Urine Negative Amphetamine Screen, Urine Negative Benzodiazepines Screen, Urine Negative Barbiturate Screen, Urine Negative Methadone Screen, Urine Negative Buprenophine Screen, Urine Negative TCA, Urine Negative MDMA Urine Negative ng/mL Oxycodone Screen, Urine Negative Phencyclidine (PCP), Urine Negative Propoxyphene, Urine Negative Fentanyl, Urine Negative Urine Urine specimen obtained by clean catch procedure / Unknown 04/23/2024 1:11 PM EST Dalia El MD POINT OF CARE TEST ENTER/ARIELLE T ORDERABLES Final Result documented in this encounter Visit Diagnoses Diagnosis Opioid dependence, uncomplicated (CMS/HCC)- Primary Schizoaffective disorder, depressive type (CMS/[facility]) Schizoaffective disorder, unspecified condition documented in this encounter Additional Health Concerns Assessment Noted Time PHQ-9 Depression Total Score: 3 04/23/19 25 11:02 AM EST documented as of this encounter Care Teams Human Resources Partner Relationship Specialty Start Date End Date Lara Headley MD [address] [place] [address] PCP - General Family Medicine 08/31/16 documented as of this encounter
--- OUTSIDE RECORDS SUMMARY | 2024-04-26 15:16 | XMS_ITS | Encounter Summary ---
Author Organization [employer] Address [address] [facility] 7t [place] [address] Care Team Providers Care Reel Tender Name Role Phone Lara Headley MD Primary Care Provider + Reason for Visit * Reason Comments Med Refill Encounter Details Date Type Department Care Team ([facility] st Contact Info) Description 12/28/[address] [facility] [address] [place], [place] [phone] aDlia El MD [address] [place], [place] [phone] Social History Tobacco Use Types Packs/Day Years Used Date Smoking Tobacco: Never Passive Smoke Exposure: Never Smokeless Tobacco: Never Alcohol Use Standard Drinks/Week Comments Never 0 (1 standard drink = 0.6 oz pur e alcohol) Depression Answer Date Recorded Patient Health Questionnaire-9 Score 4 09/03/2022 Housing Stability Answer Date Recorded What is your housing situation today? I have maria teresa mejia 12/12/[address] you li ve. Do you have problems with any of the following? None of the above 12/12/2022 Food Insecurity Answer Date Recorded Within the past 12 months, y ou worried that your food would run out before you got money to buy more: Never True 12/12/2022 Within the past 12 months,th e food you bought just didn't last and you didn't have enough money to get more: Never True Transportation Answer Date Recorded In the past 12 months, has l ack of transportation kept you from medical appts, meetings, work or from getting things needed for daily living? No 12/12/2022 Utilities Answer Date Recorded In the past 12 months, has t he electric, gas, oil or water company threatened to shut off services in your home? No 12/12/2022 Depression Answer Date Recorded Patient Health Questionnaire-2 Score 3 09/03/2022 Sex and Gender Information Value Date Recorded Sex Assigned at Male 12/25/2021 10:18 AM EDT Legal Sex Male 10:18 AM EDT Gender Identity Male 12/25/2021 10:18 AM EDT Sexual Orientation Straight 12/25/2021 10 :18 AM EDT documented as of this encounter Miscellaneous Notes * Telephone Encounter - Britt Chinchilla RN - 12/28/2022 10:54 AM EDT Pt has completed 8 week course of Mavyret. No refills needed. We will check for test of cure in 12 weeks. documented in this encounter Plan of Treatment Upcoming Encounters Date Type Department Care Team (Late st Contact Info) Description 04/30/2024 10:45 AM EST Office Visit [facility] [address] [place] [address] Lara Headley MD [address] [place] [address] 04/30/2024 3:45 PM EST Office Visit [facility] [address] [place] [address] Dalia El MD [address] [place] [address] 05/07/2024 2:30 PM EDT Office Visit [facility] [address] [place] [address] Dalia El MD [address] [place] [address] 05/25/2024 1:30 PM EDT Office Visit [facility] ADULT DENTAL [address] [place] [address] Armand Prieto DDS [address] [place] [address] documented as of this encounter Visit Diagnoses Not on filedocumented in this encounter Additional Health Concerns Assessment Noted Time PHQ-9 Depression Total Score: 4 09/04/19 23 12:55 PM EDT documented as of this encounter Care Teams Reel Tender Relationship Specialty Start Date End Date Lara Headley MD [address] [place] [phone] PCP - General Family Medicine 08/31/16 documented as of this encounter
--- OUTSIDE RECORDS SUMMARY | 2024-04-26 15:16 | XMS_ITS | Encounter Summary ---
Author Organization [employer] Address [address] [facility] 7t [place] [address] Care Team Providers Care 2Nd Grade Teacher Name Role Phone Lara Headley MD Primary Care Provider + Reason for Visit * Reason Comments Care Coordination Outreach Encounter Details Date Type Department Care Team (Latest Contact Info) Description 04/16/2024 Patient Outreach [facility] [address] [place] [address] Lara Headley MD [address] [place] [address] Care Coordination (Outreach/) Social History Tobacco Use Types Packs/Day Years [...] as of this encounter Progress Notes * Sangeetha Richardson - 04/16/2024 2:57 PM EST CHW Sangeetha Richardson and CATHY Ruby received incoming call from Natacha ( [facility] – ADA outreach and education social worker). She called with plan of discharge. Patient will be discharge tomorrow 04/17/24. CM assisted with HDF appointment. We also called CRS for patient medication. Patient will contact us as soon he get a phone. documented in this encounter Plan of Treatment Upcoming Encounters Date Type Department Care Team ([facility] st Contact Info) Description 04/30/2024 10:45 AM EST Office Visit [facility] [address] [place] [address] Lara Headley MD [address] [place] [address] 04/30/2024 3:45 PM EST Office Visit [address] [address] Dalia El MD [address] [place] [address] 05/07/2024 2:30 PM EDT Office Visit [address] [address] Dalia El MD [address] [place] [address], [place] [address] 05/25/2024 1:30 PM EDT Office Visit [facility] ADULT DENTAL [address] [place], [place] [phone] Armand Prieto DDS [address] [place], [place] [phone] documented as of this encounter Visit Diagnoses Not on filedocumented in this encounter Additional Health Concerns Assessment Noted Time PHQ-9 Depression Total Score: 3 09/30/19 24 10:01 AM EDT documented as of this encounter Care Teams 2Nd Grade Teacher Relationship Specialty Start Date End Date Lara Headley MD [address] [place] [address] PCP - General Family Medicine 08/31/16 documented as of this encounter
--- OUTSIDE RECORDS SUMMARY | 2024-04-26 15:16 | XMS_ITS | Encounter Summary ---
Author Organization [employer] Address 75 [facility] 7t [place] [address] Care Team Providers Care Quantitative Consultant Name Role Phone Lara Headley MD Primary Care Provider + Reason for Visit * Reason Comments [facility] Recovery Supports Encounter Details Date Type Department Care Team (Late st Contact Info) Description 04/17/2024 Patient Outreach [facility] [address] [place], [place] [phone] Sharif Rider [address] [place] [address] Recovery Supports Social History Tobacco Use Types [...] encounter Progress Notes * Sharif Rider - 04/17/2024 2:08 PM EST I met with Sudhir today. Setting: in person at [facility] Recovery Wellness Goals worked on: Social Stability Action taken/next steps: Offered person centered recovery support, Assisted with relapse prevention planning, and Attended alcohol and drug free activity Additional comments: Recovery Center Sharif Tereso documented in this encounter Plan of Treatment Upcoming Encounters Date Type Department Care Team (Late st Contact Info) Description 04/30/2024 10:45 AM EST Office Visit [address] [address] Lara Headley MD [address] [place] [address] 04/30/2024 3:45 PM EST Office Visit [address] [address] Dalia El MD [address] [place] [address] 05/07/2024 2:30 PM EDT Office Visit [address] [address] Dalia El MD [address] [place] [address] 05/25/2024 1:30 PM EDT Office Visit [facility] ADULT DENTAL [address] [place] [address] Armand Prieto DDS [address] [place] [address] documented as of this encounter Visit Diagnoses Not on filedocumented in this encounter Additional Health Concerns Assessment Noted Time PHQ-9 Depression Total Score: 3 09/30/19 24 10:01 AM EDT documented as of this encounter Care Teams Quantitative Consultant Relationship Specialty Start Date End Date Lara Headley MD 230 [place] [address] PCP - General Family Medicine 08/31/16 documented as of this encounter
--- OUTSIDE RECORDS SUMMARY | 2024-04-26 15:16 | XMS_ITS | Encounter Summary ---
Author Organization [employer] Address [address] [facility] 7t [place] [address] Care Team Providers Care Regional Truck Driver Name Role Phone Lara Headley MD Primary Care Provider + Encounter Details Date Type Department Care Team (Late st Contact Info) Description 04/05/2024 Orders Only GENERIC EXTERNAL DATA DEPARTMENT Provider, Generic External Data Social History Tobacco Use Types Packs/Day Years [...] Description 04/30/2024 10:45 AM EST Office Visit [facility] MED[facility]INE [address] [place] [address] Lara Headley MD [address] [place] [address] 04/30/2024 3:45 PM EST Office Visit [address] [address] Dalia El MD [address] [place] [address] 05/07/2024 2:30 PM EDT Office Visit [address] [address] Dalia El MD [address] [place] [address] 05/25/2024 1:30 PM EDT Office Visit [facility] ADULT DENTAL [address] [place] [address] Armand Prieto DDS [address] [place] [address] documented as of this encounter Procedures Procedure Name Priority Date/Time Associated Diagnosis Comments COVID-19 ID NOW (RODRIGUEZ) Routine 04/05/2024 8:51 AM EST URINALYSIS WITH REFLEX TO MICROSCOPIC Routine 04/05/2024 8:23 AM EST DRUG MONITOR, PANEL 1, SCREEN, URINE Routine 04/05/2024 8:23 AM EST ETHANOL Routine 04/05/2024 8:19 AM EST CBC WITH AUTO DIFFERENTIAL Routine 04/05/2024 8:19 AM EST ACETAMINOPHEN LEVEL Routine 04/05/2024 8 :19 AM EST SALICYLATE Routine 04/05/2024 8:19 AM EST COMPREHENSIVE METABOLIC PANEL Routine 04/05/2024 8:19 AM EST documented in this encounter Results * COVID-19 ID NOW ([employer]) (04/05/2024 8:51 AM EST) IDNOW SERIAL# [id number] [facility] COVID-19 TEST Negative Negative [facility] COVID-19 NOTE See Note [facility] Comment: Results are for the identification of SARS-CoV2 RNA. TheSARS-CoV2 RNA is generally detectable in respiratory samplesduring the acute phase of infection. Positive results areindicative of the presence of SARS-CoV-2 RNA; clinicalcorrelation with patient history and other diagnosticinformation is necessary to determine patient infectionstatus. Positive results do not rule out bacterial infectionor co- infection with other viruses.Testing facilities within the [facility] and itsterritories are required to report all positive results tothe appropriate public health authorities.Negative results should be treated as presumptive and, ifinconsistent with clinical signs and symptoms or necessaryfor patient management, should be tested with differentauthorized or cleared molecular tests. Negative results donot preclude SARS-CoV2 RNA infection and should not be usedas the sole basis for patient management decisions. Negativeresults should be considered in the context of a patient'srecent exposures, history and the presence of clinical signsand symptoms consistent with COVID-19.This test has been authorized by the FDA under an EmergencyUse Authorization (EUA) for use by authorized laboratories.Testing performed on the [facility] ID NOW utilizing NAAT. 04/05/2024 8:51 AM EST 04/05/2024 8:54 AM EST us Generic External Data Provider LAB MOLECULAR MARIANA GNOSTICS ORDERABLES Final Result [facility] [address] [place] [address] [phone] * (ABNORMAL) Drug Monitoring, Panel 1, Screen, Urine (04/05/2024 8:23 AM EST) Opiate Screen Urine POSITIVE(A) Not Detect [facility] Comment:Opiate cut-off is 30 0 ng/mL.Positive results are unconfirmed and should not be used fornon-medical purposes. Barbiturates, Urine Not Detected Not Detect [facility] Comment:Barbiturate cut-off is 200 ng/mL.Positive results are unconfirmed and should not be used fornon-medical purposes. Phencyclidine Screen Urine Not Detected Not Detect [facility] Comment:Phencyclidine cut-of f is 25 ng/mL.Positive results are unconfirmed and should not be used fornon-medical purposes. Amphetamine Screen Urine Not Detected Not Detect [facility] Comment:Amphetamine cut-off is 1000 ng/mL.Positive results are unconfirmed and should not be used fornon-medical purposes. Benzodiazepines Screen Urine Not Detected Not Detect [facility] Comment:Benzodiazepine cut-o ff is 200 ng/mL.Positive results are unconfirmed and should not be used fornon-medical purposes. Cocaine Screen Urine POSITIVE(A) Not Detect [facility] Comment:Cocaine cut-off is 3 00 ng/mL.Positive results are unconfirmed and should not be used fornon-medical purposes. Cannabinoid Screen Urine POSITIVE(A) Not Detect [facility] Comment:Cannabinoid cut-off is 50 ng/mL.Positive results are unconfirmed and should not be used fornon-medical purposes. Methadone Screen, Urine Not Detected Not Detect ng/mL [facility] Comment:Methadone cut-off is 300 ng/mL.Positive results are unconfirmed and should not be used fornon-medical purposes. FENTANYL URINE POSITIVE(A) Not Detect [facility] Comment:Fentanyl cut-off is 1 ng/mL.Positive results are unconfirmed and should not be used fornon-medical purposes. Oxycodone Urine Screen Not Detected Not Detect ng/mL [facility] Comment:Oxycodone cut-off is 100 ng/mL.Positive results are unconfirmed and should not be used fornon-medical purposes. Buprenorphine Screen Positive(A) Not Detect ng/mL [facility] Comment:Buprenorphine cut-of f is 5 ng/mL.Positive results are unconfirmed and should not be used fornon-medical purposes. 04/05/2024 8:23 AM EST 04/05/2024 8:26 AM EST Generic External Data Provider LAB URINE ORDERAB LES Final Result Performing Organization Address [facility] de Phone Number [facility] [address] [place] [phone] * (ABNORMAL) Urinalysis with Reflex to Microscopic (04/05/2024 8:23 AM EST) Color Urine Yellow [facility] Appearance Urine Clear [facility] PH 6.0 5.0 - 9.0 [facility] Glucose Urine UA Negative Negative mg/dL [facility] Urine Blood Negative Negative [facility] Specific [place] - Urine >=1.030(H) 1.005 - 1.025 [facility] Urine Protein Trace Neg-Trace mg/dL [facility] Urine Ketones Negative Negative mg/dL [facility] Nitrite Urine Negative Negative [facility] Leukocyte Esterase Urine Negative Negative [facility] 04/05/2024 8:23 AM EST 04/05/2024 8:26 AM EST Generic External Data Provider LAB URINE ORDERAB LES Final Result Performing Organization Address [facility] de Phone Number [facility] [address] [place] [phone] * Acetaminophen level (04/05/2024 8:19 AM EST) Acetaminophen LAB <3 <30 mcg/mL [facility] 04/05/2024 8:19 AM EST 04/05/2024 8:26 AM EST Generic External Data Provider LAB BLOOD ORDERAB LES Final Result Performing Organization Address City/[facility]/ZIP Co de Phone Number [facility] [address] [place] [phone] * (ABNORMAL) Salicylate (04/05/2024 8:19 AM EST) Salicylate <5.0(L) 15 - 30 mg/dL [facility] 04/05/2024 8:19 AM EST 04/05/2024 8:26 AM EST Generic External Data Provider LAB BLOOD ORDERAB LES Final Result Performing Organization Address [facility] Co de Phone Number [facility] [address] [place] [phone] * Ethanol (04/05/2024 8:19 AM EST) ETHANOL (MG/DL) IN SER/PLAS <10 mg/dL [facility] Comment:Serum/plasma ethanol results are to be used formedical/treatment purposes only. 04/05/2024 8:19 AM EST 04/05/2024 8:26 AM EST Generic External Data Provider LAB BLOOD ORDERAB LES Final Result Performing Organization Address [facility] Co de Phone Number [facility] [address] [place] [phone] * (ABNORMAL) Comprehensive Metabolic Panel (04/05/2024 8:19 AM EST) Sodium 141 135 - 145 mmol/L [facility] Potassium 4.2 3.3 - 5.1 mmol/L [facility] Chloride 105 96 - 108 mmol/L [facility] Carbon Dioxide 28 22 - 29 mmol/L [facility] Anion Gap 12 12 - 20 [facility] Urea Nitrogen (BUN) 25(H) 9 - 16 mg/dL [facility] Creatinine, Serum 1.02 0.5 - 1.4 mg/dL [facility] Creatinine Clr Calc Pharmacy 80.1 [facility] Comment:eGFR (calculated fro m the MDRD study equation) and eCrCl(calculated from the Cockcroft-Gault equation) are based ondifferent parameters and may not yield comparable results.If eCrCl result is absurd, please check patient'sheight/weight. Estimated Glomerular Filt Rate >60 [facility] Comment:Chronic Kidney Disea se: Estimated GFR < 60 mL/min/1.27z1Emalhl Kidney Disease: Estimated GFR < 15 mL/min/1.73m2 Glucose 110 60 - 115 mg/dL [facility] Calcium 9.3 8.4 - 10.2 mg/dL [facility] Bilirubin, Total 0.2 0.0 - 1.0 mg/dL [facility] Aspartate Amino Transferase 39(H) 5 - 37 U/L [facility] Alanine Aminotransferase 29 0 - 40 U/L [facility] Total Protein 7.9 6.5 - 8.0 g/dL [facility] Albumin Level 4.0 3.5 - 5.0 g/dL [facility] Alkaline Phosphatase 85 39 - 117 U/L [facility] 04/05/2024 8:19 AM EST 04/05/2024 8:26 AM EST us Generic External Data Provider LAB BLOOD ORDERAB LES Final Result [facility] [address] [place] [phone] * (ABNORMAL) CBC auto differential (04/05/2024 8:19 AM EST) White Blood Count 5.1 4.8 - 10.8 X10*3/uL [facility] Red Blood Count 4.40(L) 4.60 - 5.80 X10*6/uL [facility] Hemoglobin 11.6(L) 14.0 - 18.0 g/dl [facility] Hematocrit 36.8(L) 42.0 - 52.0 % [facility] Mean Corpuscular Volume 83.6 80.0 - 98.0 fL [facility] Mean Corpuscular Hemoglobin 26.4(L) 27.0 - 33.0 pg [facility] Mean Corpuscular HGB Conc 31.5 31.0 - 36.0 g/dl [facility] Red Cell Distribution Width 14.4 11.0 - 16.0 % [facility] Platelet Count 368 160 - 400 X10*3/uL [facility] Mean Platelet Volume 8.3(L) 9.4 - 12.4 fL [facility] Neutrophils Percent Auto 62.1 45 - 73 % [facility] Imm Gran Pct Auto 0.4 0.0 - 0.4 % [facility] Lymphocytes Percent Auto 19.0(L) 20 - 40 % [facility] Monocytes Percent Auto 16.1(H) 2 - 11 % [facility] Eosinophils Percent Auto 1.6 0 - 4 % [facility] Basophils Percent Auto 0.8 0 - 2 % [facility] NRBC Pct Auto 0.0 0.0 - 0.2 /100WBC [facility] Neutrophils Absolute Auto 3.2 2.0 - 8.3 x10*3/uL [facility] Imm Gran Abs Auto 0.02 0.00 - 0.03 X10*3/uL [facility] Lymphocytes Absolute Auto 1.0(L) 1.2 - 4.9 X10*3/uL [facility] Monocytes Absolute Auto 0.8 0.1 - 1.2 X10*3/uL [facility] Eosinophils Absolute Auto 0.1 0.0 - 0.4 X10*3/uL [facility] Basophils Absolute Auto 0.0 0.0 - 0.2 X10*3/uL [facility] NRBC Abs Auto 0.000 0.0 - 0.012 X10*3/uL [facility] 04/05/2024 8:19 AM EST 04/05/2024 8:26 AM EST us Generic External Data Provider LAB BLOOD ORDERAB LES Final Result Performing Organization Address City/State/[facility] Co de Phone Number [facility] [address] [place] [phone] documented in this encounter Visit Diagnoses Not on filedocumented in this encounter Additional Health Concerns Assessment Noted Time PHQ-9 Depression Total Score: 3 09/30/19 24 10:01 AM EDT documented as of this encounter Care Teams Regional Truck Driver Relationship Specialty Start Date End Date Lara Headley MD [address] [place] [phone] PCP - General Family Medicine 08/31/16 documented as of this encounter
--- OUTSIDE RECORDS SUMMARY | 2024-04-26 15:16 | XMS_ITS | Encounter Summary ---
Author Organization [employer] Address [address] [facility] 7t [place] [address] Care Team Providers Care Automotive Fuel Injection Servicer Name Role Phone Lara Headley MD Primary Care Provider + Encounter Details Date Type Department Care Team (Late st Contact Info) Description 03/30/2024 Telephone [facility] [address] [place], [place] [phone] Lara Headley MD [address] [place], [place] [phone] Social History Tobacco Use Types Packs/Day Years [...] encounter Miscellaneous Notes * Telephone Encounter - Blaire Loaiza - 03/30/2024 11:24 AM EST FYI to PCP - Patient unable to be contacted for MTM The pharmacy team has made >3 attempts to schedule patient for visit with pharmacy staff. At this time no further outreach attempts will be made until a new referral is sent. Voicemail/letter to patient today to notify them; they may also call in at later date if interestedin scheduling an appointment at a future time. documented in this encounter Plan of Treatment Upcoming Encounters Date Type Department Care Team (Late st Contact Info) Description 04/30/2024 10:45 AM EST Office Visit [address] [address] Lara Headley MD [address] [place] [address] 04/30/2024 3:45 PM EST Office Visit [address] [address] Dalia El MD [address] [place] [address] 05/07/2024 2:30 PM EDT Office Visit [address] [address] Dalia El MD [address] [place] [address] 05/25/2024 1:30 PM EDT Office Visit [facility] ADULT DENTAL [address] [place], [place] [phone] Armand Prieto DDS [address] [place], [place] [phone] documented as of this encounter Visit Diagnoses Not on filedocumented in this encounter Additional Health Concerns Assessment Noted Time PHQ-9 Depression Total Score: 3 09/30/19 24 10:01 AM EDT documented as of this encounter Care Teams Automotive Fuel Injection Servicer Relationship Specialty Start Date End Date Lara Headley MD [address] [place] [address] PCP - General Family Medicine 08/31/16 documented as of this encounter
--- OUTSIDE RECORDS SUMMARY | 2024-04-26 15:16 | XMS_ITS | Encounter Summary ---
Author Organization [employer] Address [address] [facility] 7t [place] [address] Care Team Providers Care Aircraft Time Clerk Name Role Phone Lara Headley MD Primary Care Provider + Reason for Visit * Reason Comments RC Recovery Supports Encounter Details Date Type Department Care Team (Late st Contact Info) Description 04/02/2024 Patient Outreach [facility] MEDICINE [address] [place], [place] [phone] Sharif Rider [address] [place] [address] Recovery Supports Social History Tobacco Use Types [...] encounter Progress Notes * Sharif Rider - 04/02/2024 1:40 PM EST I met with Sudhir today. Setting: in person at [facility] Recovery Wellness Goals worked on: Physical Health/Mental Health and Social Stability Action taken/next steps: Offered person centered recovery support and Assisted with relapse prevention planning Additional comments: Discused treatment options Sharif Rider documented in this encounter Plan of Treatment Upcoming Encounters Date Type Department Care Team (Late st Contact Info) Description 04/30/2024 10:45 AM EST Office Visit [address] [address] Lara Headley MD [address] [place] [address] 04/30/2024 3:45 PM EST Office Visit [address] [address] Dalia El MD [address] [place] [address] 05/07/2024 2:30 PM EDT Office Visit [address] [address] Dalia El MD [address] [place] [address] 05/25/2024 1:30 PM EDT Office Visit [facility] ADULT DENTAL 230 [place] [address] Armand Prieto DDS [address] [place] [address] documented as of this encounter Visit Diagnoses Not on filedocumented in this encounter Additional Health Concerns Assessment Noted Time PHQ-9 Depression Total Score: 3 09/30/19 24 10:01 AM EDT documented as of this encounter Care Teams Aircraft Time Clerk Relationship Specialty Start Date End Date Lara Headley MD 230 [place] [address] PCP - General Family Medicine 08/31/16 documented as of this encounter
--- OUTSIDE RECORDS SUMMARY | 2024-04-26 15:16 | XMS_ITS | Encounter Summary ---
Author Organization [employer] Address 75 [facility] 7t [place] [address] Care Team Providers Care Coal Screener Name Role Phone Lara Headley MD Primary Care Provider + Reason for Visit * Reason Comments RC Recovery Supports Encounter Details Date Type Department Care Team (Late st Contact Info) Description 04/20/2024 Patient Outreach [facility] MEDICINE 230 [place] [address] Jack Tavares Recovery Supports Social History Tobacco Use Types [...] as of this encounter Progress Notes * Jack Tavares - 04/20/2024 10:30 AM EST I met with Sudhir today. Setting: in person at [facility] Recovery Wellness Goals worked on: Social Stability Action taken/next steps: Attended alcohol and drug free activity Additional comments: Today, the patient, Sudhir Morales, was in the Recovery Center. Jack Tavares documented in this encounter Plan of Treatment Upcoming Encounters Date Type Department Care Team (Late st Contact Info) Description 04/30/2024 10:45 AM EST Office Visit [facility] MEDICINE [address] [place] [address] Lara Headley MD [address] [place] [address] 04/30/2024 3:45 PM EST Office Visit [facility] MEDICINE [address] [place] [address] Dalia El MD [address] [place] [address] 05/07/2024 2:30 PM EDT Office Visit [facility] MEDICINE [address] [place] [address] Dalia El MD [address] [place] [address] 05/25/2024 1:30 PM EDT Office Visit [facility] ADULT DENTAL [address] [place] [address] Armand Prieto DDS 230 [place] [address] documented as of this encounter Visit Diagnoses Not on filedocumented in this encounter Additional Health Concerns Assessment Noted Time PHQ-9 Depression Total Score: 3 09/30/19 24 10:01 AM EDT documented as of this encounter Care Teams Coal Screener Relationship Specialty Start Date End Date Lara Headley MD 230 [place] [address] PCP - General Family Medicine 08/31/16 documented as of this encounter
--- OUTSIDE RECORDS SUMMARY | 2024-04-26 15:16 | XMS_ITS | Encounter Summary ---
Author Organization [employer] Address [address] [facility] 7t [place] [address] Care Team Providers Care Verification Specialist Name Role Phone Lara Headley MD Primary Care Provider + Encounter Details Date Type Department Care Team ([facility] st Contact Info) Description 04/23/2024 Telephone [facility] MEDICINE 230 [place], [place] [phone] Lara Headley MD 230 [place], [place] [phone] Social History Tobacco Use Types Packs/Day Years [...] housing situation today? I have maria teresa roberto 09/13/[address] you li [...] encounter Miscellaneous Notes * Telephone Encounter - Gaby Black [place] - 04/23/2024 3:23 PM EST Tc to pt to r/s appt with PCP on 05/04/24 as Provider won't be in that afternoon. Phone was out of service, appt has been cancelled. documented in this encounter Plan of Treatment Upcoming Encounters Date Type Department Care Team (Late st Contact Info) Description 04/30/2024 10:45 AM EST Office Visit [facility] MEDICINE [address] [place] [address] Lara Headley MD [address] [place] [address] 04/30/2024 3:45 PM EST Office Visit [address] [address] Dalia El MD [address] [place] [address] 05/07/2024 2:30 PM EDT Office Visit [facility] 230 [place] [address] Dalia El MD 230 [place] [address] 05/25/2024 1:30 PM EDT Office Visit [facility] ADULT DENTAL [address] [place] [address] Armand Prieto DDS [address] [place] [address] documented as of this encounter Visit Diagnoses Not on filedocumented in this encounter Additional Health Concerns Assessment Noted Time PHQ-9 Depression Total Score: 3 04/23/19 25 11:02 AM EST documented as of this encounter Care Teams Verification Specialist Relationship Specialty Start Date End Date Lara Headley MD 230 [place], [place] [phone] PCP - General Family Medicine 08/31/16 documented as of this encounter
--- OUTSIDE RECORDS SUMMARY | 2024-04-26 15:16 | XMS_ITS | Encounter Summary ---
Author Organization [employer] Address [address] [facility] [address] 7t [place] [address] Care Team Providers Care Supervisor Cellars Name Role Phone Lara Headley MD Primary Care Provider + Encounter Details Date Type Department Care Team (Latest Contact Info) Description 03/27/2024 Travel Social History Tobacco Use Types Packs/Day [...] 04/30/2024 10:45 AM EST Office Visit [facility] MEDICINE [address] [place] [address] Lara Headley MD [address] [place] [address] 04/30/2024 3:45 PM EST Office Visit [address] [address] Dalia El MD [address] [place] [address] 05/07/2024 2:30 PM EDT Office Visit [address] [address] Dalia El MD [address] [place] [address] 05/25/2024 1:30 PM EDT Office Visit [facility] ADULT DENTAL [address] [place] [address] Armand Prieto DDS [address] [place] [address] documented as of this encounter Visit Diagnoses Not on filedocumented in this encounter Additional Health Concerns Assessment Noted Time PHQ-9 Depression Total Score: 3 09/30/19 24 10:01 AM EDT documented as of this encounter Care Teams Supervisor Cellars Relationship Specialty Start Date End Date Lara Headley MD [address] [place] [address] PCP - General Family Medicine 08/31/16 documented as of this encounter
--- OUTSIDE RECORDS SUMMARY | 2024-04-26 15:16 | XMS_ITS | Encounter Summary ---
Author Organization [email or web address] Address [address] [facility] 7t [place] [address] Care Team Providers Care Chronometer Assembler And Adjuster Name Role Phone Lara Headley MD Primary Care Provider + Reason for Visit * Reason Comments RC Recovery Supports Encounter Details Date Type Department Care Team (Late st Contact Info) Description 03/30/2024 Patient Outreach [facility] MEDICINE 230 [place], [place] [phone] Sharif Rider [address] [place] [address] Recovery Supports Social History Tobacco Use Types [...] encounter Progress Notes * Sharif Rider - 03/30/2024 3:39 PM EST I met with Sudhir today. Setting: in person at [facility] Recovery Wellness Goals worked on: Social Stability Action taken/next steps: Offered person centered recovery support and Attended alcohol and drug free activity Additional comments: Participated in the center. Sharif Rider documented in this encounter Plan of Treatment Upcoming Encounters Date Type Department Care Team (Late st Contact Info) Description 04/30/2024 10:45 AM EST Office Visit [facility] MEDICINE [address] [place] [address] Lara Headley MD [address] [place] [address] 04/30/2024 3:45 PM EST Office Visit [address] [address] Dalia El MD [address] [place] [address] 05/07/2024 2:30 PM EDT Office Visit [facility] MEDICINE [address] [place] [address] Dalia El MD [address] [place] [address] 05/25/2024 1:30 PM EDT Office Visit [facility] ADULT DENTAL 230 [place] [address] Armand Prieto DDS [address] [place], [place] [phone] documented as of this encounter Visit Diagnoses Not on filedocumented in this encounter Additional Health Concerns Assessment Noted Time PHQ-9 Depression Total Score: 3 09/30/19 24 10:01 AM EDT documented as of this encounter Care Teams Chronometer Assembler And Adjuster Relationship Specialty Start Date End Date Lara Headley MD 230 [place] [address] PCP - General Family Medicine 08/31/16 documented as of this encounter
--- OUTSIDE RECORDS SUMMARY | 2024-04-26 15:16 | XMS_ITS | Encounter Summary ---
Author Organization [employer] Address [address] [facility] 7t [place] [address] Care Team Providers Care Drafter Tool Design Name Role Phone Lara Headley MD Primary Care Provider + Reason for Visit * Reason Comments OBAT Encounter Details Date Type Department Care Team ([facility] st Contact Info) Description 04/02/2024 2:30 PM EST Office Visit [facility] MEDICINE 230 [place], [place] [phone] Dalia El MD 230 [place], [place] [phone] Opioid type dependence, continuous (CMS/HCC) (Primary Dx) Social History Tobacco Use [...] Progress Notes * Dalia El MD - 04/02/2024 2:30 PM EST Patient here today for Opioid Dependence RV. Patient on current Suboxone dose of 16/4 mg on a 1 week schedule. Patient has been in the program for 8 weeks. Induction date: 02/10/24. LFTs done 02/11/24. Patient actively enrolled in behavioral health services, psychiatrist Dr. Stuart. JARRETT PAT reviewed by provider. Last PCP appt 11/25/23. Smoking status: former smoker. Last Visit 03/27/24 +tess, mtd, bup Sudhir is here today after being discharged from [facility]. States he was there to kick the fentanyl . States he was given methadone while he was there and then transitioned to Suboxone. He states he would like to stay on Suboxone vs methadone. Will reassess next week. TODAY-04/02/24 Subjective Patient ID: Sudhir Morales is a 48 y.o. male who presents for OBAT. Sudhir is being seen for OBAT services. He continues to use multiple substances. Cites stress as a trigger for use. He continues to live in the sober house in [place]. We discussed the possibility of detox today, which I strongly recommend. He is resistant and statesthat he has a lot going on right now. DIANE Rider will speak with him today about opportunities for detox. Review of Systems Psychiatric/Behavioral: Positive for dysphoric [...] and all orders for this visit: Opioid type dependence, continuous ([facility]) Counseling provided RE: importance of multiple sources of support for achieving and maintaining recovery. Counseling RE: harm reduction measures, ie, not using alone, the use of clean needles/equipment, Narcan. Discussed strategies to use when confronted with situations that trigger use. Will continue to discuss inpatient detox and other more intensive treatment options. Follow up one week. - POCT RIN-14 Urine Drug Screen This information has been disclosed to you [...] Description 04/30/2024 10:45 AM EST Office Visit [facility] MEDICINE [address] [place] [address] Lara Headley MD [address] [place] [address] 04/30/2024 3:45 PM EST Office Visit [address] [address] Dalia El MD 230 [place] [address] 05/07/2024 2:30 PM EDT Office Visit [facility] MEDICINE [address] [place] [address] Dalia El MD [address] [place], [place] [phone] 05/25/2024 1:30 PM EDT Office Visit [facility] ADULT DENTAL [address] [place] [address] Armand Prieto DDS [address] [place], [place] [phone] documented as of this encounter Procedures Procedure Name Priority Date/Time Associated Diagnosis Comments POCT RIN-14 URINE DRUG SCREEN Routine 04/02/2024 1:25 PM EST Opioid type dependence, continuous (CMS/HCC) documented in this encounter Results * POCT RIN-14 Urine Drug Screen (04/02/2024 1:25 PM EST) THC Positive Cocaine Screen, Urine Positive Opiate Screen, Urine Positive Methamphetamine Screen Urine Negative Amphetamine Screen, Urine Negative Benzodiazepines Screen, Urine Negative Barbiturate Screen, Urine Negative Methadone Screen, Urine Positive Buprenophine Screen, Urine Positive TCA, Urine Positive MDMA Urine Negative ng/mL Oxycodone Screen, Urine Negative Phencyclidine (PCP), Urine Negative Propoxyphene, Urine Negative Fentanyl, Urine Positive Urine Urine specimen obtained by clean catch procedure / Unknown 04/02/2024 1:25 PM EST Dalia El MD POINT OF CARE TEST ENTER/ARIELLE T ORDERABLES Final Result documented in this encounter Visit Diagnoses Diagnosis Opioid type dependence, continuous (CMS/HCC)- Primary Opioid type dependence, continuous documented in this encounter Additional Health Concerns Assessment Noted Time PHQ-9 Depression Total Score: 3 09/30/19 24 10:01 AM EDT documented as of this encounter Care Teams Drafter Tool Design Relationship Specialty Start Date End Date Fang, Janene, MD [address] [place] [address] PCP - General Family Medicine 08/31/16 documented as of this encounter
--- OUTSIDE RECORDS SUMMARY | 2024-04-26 15:16 | XMS_ITS | Encounter Summary ---
Author Organization [employer] Address 75 [facility] 7t [place] [address] Care Team Providers Care Ebd Special Education Teacher Name Role Phone Lara Headley MD Primary Care Provider + Reason for Visit * Reason Comments Transition Of Care (Tcm) Encounter Details Date Type Department Care Team ([facility] st Contact Info) Description 04/06/2024 Patient Outreach [facility] MEDICINE [address] [place], [place] [phone] Lara Headley MD 230 [place], [place] [phone] Transition Of Care (Tcm) Social History Tobacco Use Types Packs/Day Years [...] as of this encounter Progress Notes * Claudette Mcguire RN - 04/06/2024 9:40 AM EST Transition of Care Note Sudhir Morales is going through a recent transition of care. Per [facility] notes in chart pt in observation while pending bed search * Nancy Baxter RN - 04/06/2024 9:40 AM EST Images from the original note were not included. Hospital Discharges and Admission for [facility] Type of Visit: Emergency Department Date of Admission/Visit: 04/05/24 Date of Discharge: 03/10/24 (11:53 am) Facility: [facility] Diagnosis: CRISIS Disposition: Admitted Follow-Up Actions Follow-Up Needed: Other Follow-Up Outcome: -- (Patient still at inpatient) Initial Contact Date: (None-Patient still admitted) Patient Contacted: Patient is still currently admitted at [facility] in the CARE team unit (behavioral health) Patient Status: unknown, patient is still currently at [facility] (BH unit) The full discharge summary is pending, patient is still currently at [facility]. Review Flowsheet [facility] Transition of Care Documentation Type of Visit Date of Admission/Visit Date of Discharge Facility Diagnosis Disposition 11/19/2023 9:05 AM Hospital Admission 11/14/2023 11/16/2023 [facility] cocaine induced KATHYA Discharged Home 11/19/2023 1:48 PM Hospital Admission 11/14/2023 11/16/2023 [facility] KATHYA Discharged Home 02/12/2024 8:25 AM Emergency Department 02/10/2024 02/10/2024 [facility] HTN, Left Without Being Seen 02/14/2024 3:11 PM Hospital Admission 02/12/2024 02/17/2024 [facility] Suicidal ideation. Depression Discharged Home 02/28/2024 8:46 AM Emergency Department 02/27/2024 9:31 pm 02/28/2024 2:35 am [facility] Chest pain, HTN, cocaine abuse Discharged Home 03/02/2024 8:41 AM Emergency Department 02/27/2024 9:31pm 02/28/2024 2:35am [facility] Headache, unspecified, Essential (primary) hypertension, Chest pain, unspecified, Cocaine abuse, uncomplicated, Poisoning by fentanyl or fentanyl analogs, accidental (unintentional), initial encounter, hypertension Discharged Home 03/02/2024 8:43 AM Emergency Department 03/02/2024 - [facility] PSYCH EVAL,SI,CRACK ARISTEO USE FROM PD STATION - 03/09/2024 10:06 AM Emergency Department 03/07/2024 3:17 am 03/07/2024 8:02 am [facility] CP Discharged Home 03/09/2024 11:00 AM Emergency Department 03/07/2024 03/07/2024 [facility] Atypical chest pain Discharged Home 03/12/2024 9:55 AM Emergency Department 03/10/2024 6:49am 03/10/2024 11:53 am [facility] SI Discharged Home 04/06/2024 9:42 AM Emergency Department 04/05/2024 - [facility] CRISIS Admitted Recent Visits Date Type Provider Dept 04/02/24 Office Visit Dalia El MD [facility] Medicine 03/12/24 Office Visit Dalia El MD [facility] Medicine 03/05/24 Office Visit Lara Headley MD [facility] Medicine 02/10/24 Office Visit Dalia El MD [facility] Medicine 11/25/23 Office Visit Lara Headley MD [facility] Medicine 10/23/23 Office Visit Santa Maya MD [facility] Walk-In Center 09/23/23 Office Visit Lara Headley MD [facility] Medicine 06/24/23 Office Visit Lara Headley MD [facility] Medicine 04/26/23 Office Visit Lara Headley MD [facility] Medicine Showing recent visits within past 365 days with a meds authorizing provider and meeting all other requirements Future Appointments Date Type Provider Dept 04/16/24 Appointment Dalia El MD [facility] Medicine 05/04/24 Appointment Lara Headley MD [facility] Medicine Showing future appointments within next 150 days with a meds authorizing provider and meeting all other requirements Patient was not educated on hours of operation (RN did not speak to patient as patient is currentlystill at [facility]). documented in this encounter Plan of Treatment Upcoming Encounters Date Type Department Care Team (Late st Contact Info) Description 04/30/2024 10:45 AM EST Office Visit [facility] MEDICINE [address] [place] [address] Lara Headley MD [address] [place] [address] 04/30/2024 3:45 PM EST Office Visit [facility] MEDICINE [address] [place] [address] Dalia El MD [address] [place] [address] 05/07/2024 2:30 PM EDT Office Visit [facility] MEDICINE [address] [place] [address] Dalia El MD [address] [place] [address] 05/25/2024 1:30 PM EDT Office Visit [facility] ADULT DENTAL [address] [place] [address] Armand Prieto DDS [address] [place] [address] documented as of this encounter Visit Diagnoses Not on filedocumented in this encounter Additional Health Concerns Assessment Noted Time PHQ-9 Depression Total Score: 3 09/30/19 24 10:01 AM EDT documented as of this encounter Care Teams Ebd Special Education Teacher Relationship Specialty Start Date End Date Lara Headley MD [address] [place] [address] PCP - General Family Medicine 08/31/16 documented as of this encounter
--- OUTSIDE RECORDS SUMMARY | 2024-04-26 15:16 | XMS_ITS | Encounter Summary ---
Author Organization [employer] Address [address] [facility] 7t [place] [address] Care Team Providers Care Chemical Research Engineer Name Role Phone Lara Headley MD Primary Care Provider + Encounter Details Date Type Department Care Team (Late st Contact Info) Description 04/01/2024 Telephone [facility] MEDICINE 230 [place], [place] [phone] Richard Woods, EMILY [address] [place] [address] Social History Tobacco Use Types Packs/Day Years [...] t he electric, gas, oil or water [employer] threatened to shut off services in your [...] encounter Miscellaneous Notes * Telephone Encounter - Richard Woods RN - 04/01/2024 2:28 PM EST Attempted to call pt re appt tomorrow and inclement weather, no working number. documented in this encounter Plan of Treatment Upcoming Encounters Date Type Department Care Team (Late st Contact Info) Description 04/30/2024 10:45 AM EST Office Visit [facility] MEDICINE [address] [place] [address] Lara Headley MD [address] [place] [address] 04/30/2024 3:45 PM EST Office Visit [facility] MEDICINE [address] [place] [address] Dalia El MD [address] [place] [address] 05/07/2024 2:30 PM EDT Office Visit [facility] MEDICINE [address] [place] [address] Dalia El MD [address] [place] [address] 05/25/2024 1:30 PM EDT Office Visit [facility] ADULT DENTAL [address] [place] [address] Armand Prieto DDS [address] [place] [address] documented as of this encounter Visit Diagnoses Not on filedocumented in this encounter Additional Health Concerns Assessment Noted Time PHQ-9 Depression Total Score: 3 09/30/19 24 10:01 AM EDT documented as of this encounter Care Teams Chemical Research Engineer Relationship Specialty Start Date End Date Lara Headley MD 230 [place] [address] PCP - General Family Medicine 08/31/16 documented as of this encounter
--- OUTSIDE RECORDS SUMMARY | 2024-04-26 15:16 | XMS_ITS | Encounter Summary ---
Author Organization [employer] Address [address] [facility] 7t [place] [address] Care Team Providers Care Nurses Superintendent Name Role Phone Lara Headley MD Primary Care Provider + Reason for Visit * Reason Comments Transition Of Care (Tcm) Encounter Details Date Type Department Care Team ([facility] st Contact Info) Description 04/24/2024 Patient Outreach [facility] [address] [place], [place] [phone] Lara Headley MD [address] [place], [place] [phone] Transition Of Care (Tcm) Social History Tobacco [...] Progress Notes * Claudette Mcguire RN - 04/24/2024 10:38 AM EST Transition of Care Note Sudhir Morales is going through a recent transition of care. * Nancy Baxter RN - 04/24/2024 10:38 AM EST Images from the original note were not included. Hospital Discharges and Admission for [facility] Type of Visit: Emergency Department Date of Admission/Visit: 04/24/24 Date of Discharge: 04/24/24 Facility: [facility] Diagnosis: Hypertension Disposition: Discharged Home Follow-Up Actions Follow-Up Needed: Other Follow-Up Outcome: -- (Patient still at inpatient) Initial Contact Date: (None-Patient still admitted) Patient Contacted: Patient does not have a phone number. RN called mom's number however it appears to be disconnected the service you are attempting to use has been restricted or is unavailable . Patient Status: unknown The full discharge summary is has been requested from [facility] via fax ([phone]) confirmation page received. Review Flowsheet More data may exist [facility] Transition of Care Documentation Type of Visit Date of Admission/Visit Date of Discharge Facility Diagnosis Disposition 11/19/2023 9:05 AM Hospital Admission 11/14/2023 11/16/2023 [facility] cocaine induced KATHYA Discharged Home 11/19/2023 1:48 PM Hospital Admission 11/14/2023 11/16/2023 [facility] KATHYA Discharged Home 02/12/2024 8:25 AM Emergency Department 02/10/2024 02/10/2024 [facility] HTN, Left Without Being Seen 02/14/2024 3:11 PM Hospital Admission 02/12/2024 02/17/2024 [facility] Suicidal ideation. Depression Discharged Home 02/28/2024 8:46 AM Emergency Department 02/27/2024 9:31 pm 02/28/2024 2:35 am [facility] Chest pain, HTN, cocaine abuse Discharged Home 03/02/2024 8:41 AM Emergency Department 02/27/2024 9:31pm 02/28/2024 2:35am [facility] Headache, unspecified, Essential (primary) hypertension, Chest pain, unspecified, Cocaine abuse, uncomplicated, Poisoning by fentanyl or fentanyl analogs, accidental (unintentional), initial encounter, hypertension Discharged Home 03/02/2024 8:43 AM Emergency Department 03/02/2024 - [facility] PSYCH EVAL,SI,CRACK ARISTEO USE FROM PD STATION - 03/09/2024 10:06 AM Emergency Department 03/07/2024 3:17 am 03/07/2024 8:02 am [facility] CP Discharged Home 03/09/2024 11:00 AM Emergency Department 03/07/2024 03/07/2024 [facility] Atypical chest pain Discharged Home 03/12/2024 9:55 AM Emergency Department 03/10/2024 6:49am 03/10/2024 11:53 am [facility] SI Discharged Home 04/06/2024 9:42 AM Emergency Department 04/05/2024 - [facility] CRISIS Admitted 04/24/2024 10:38 AM Emergency Department 04/24/2024 04/24/2024 [facility] Hypertension DischargedHome Recent Visits Date Type Provider Dept 04/23/24 Office Visit Dalia El MD [facility] Medicine 04/02/24 Office Visit Dalia El MD [facility] Medicine 03/12/24 Office Visit Dalia El MD [facility] Medicine 03/05/24 Office Visit Lara Headley MD [facility] Medicine 02/10/24 Office Visit Dalia El MD [facility] Medicine 11/25/23 Office Visit Lara Headley MD [facility] Medicine 10/23/23 Office Visit Santa Maya MD [facility]In [facility] 09/23/23 Office Visit aLra Headley MD [facility] Medicine 06/24/23 Office Visit Lara Headley MD [facility] Medicine 04/26/23 Office Visit Lara Headley MD [facility] Showing recent visits within past 365 days with a meds authorizing provider and meeting all other requirements Future Appointments Date Type Provider Dept 04/30/24 Appointment Dalia El MD [facility] Medicine 04/30/24 Appointment Lara Headley MD [facility] 05/07/24 Appointment Dalia El MD [facility] Showing future appointments within next 150 days with a meds authorizing provider and meeting all other requirements Patient was not educated on hours of operation as RN did not speak to the patient. Patient is scheduled to see PCP on 04/30/24. documented in this encounter Plan of Treatment Upcoming Encounters Date Type Department Care Team (Late st Contact Info) Description 04/30/2024 10:45 AM EST Office Visit [facility] [address] [place] [phone] Lara Headley MD [address] [place] [address] 04/30/2024 3:45 PM EST Office Visit [facility] [address] [place] [phone] Dalia El MD [address] [place] [phone] 05/07/2024 2:30 PM EDT Office Visit [place] [phone] [place] [address] Dalia El MD [address] [place] [address] 05/25/2024 1:30 PM EDT Office Visit [facility] [address], [place] [phone] Armand Prieto DDS [address], [place] [phone] documented as of this encounter Visit Diagnoses Not on filedocumented in this encounter Additional Health Concerns Assessment Noted Time PHQ-9 Depression Total Score: 3 04/23/19 25 11:02 AM EST documented as of this encounter Care Teams Nurses Superintendent Relationship Specialty Start Date End Date Lara Headley MD [address] [place] [address] PCP - General Family Medicine 08/31/16 documented as of this encounter
--- OUTSIDE RECORDS SUMMARY | 2024-04-26 15:16 | XMS_ITS | Encounter Summary ---
Author Organization [employer] Address [address] [facility] [address] [address] [place] [address] Care Team Providers Care Signal Inspector Name Role Phone Lara Headley MD Primary Care Provider + Encounter Details Date Type Department Care Team (Latest Contact Info) Description 04/02/2024 Travel Social History Tobacco Use Types Packs/Day [...] 04/30/2024 10:45 AM EST Office Visit [facility] [address] [place] [phone] Lara Headley MD [address] [place] [address] 04/30/2024 3:45 PM EST Office Visit [address] [address] Dalia El MD [address] [place] [phone] 05/07/2024 2:30 PM EDT Office Visit [address] [address] Dalia El MD [address] [place] [phone] 05/25/2024 1:30 PM EDT Office Visit [facility] ADULT [facility]AL [address] [place] [address] Armand Prieto DDS [address] [place] [phone] documented as of this encounter Visit Diagnoses Not on filedocumented in this encounter Additional Health Concerns Assessment Noted Time PHQ-9 Depression Total Score: 3 09/30/19 24 10:01 AM EDT documented as of this encounter Care Teams Signal Inspector Relationship Specialty Start Date End Date Lara Headley MD [address] [place] [phone] PCP - General Family Medicine 08/31/16 documented as of this encounter
--- OUTSIDE RECORDS SUMMARY | 2024-04-26 15:16 | XMS_ITS | Encounter Summary ---
Author Organization [employer] Address [address] [facility] 7t [place] [address] Care Team Providers Care Leisure Studies Professor Name Role Phone Lara Headley MD Primary Care Provider + Reason for Visit * Reason Onset Date Comments Med Refill 04/02/2024 Encounter Details Date Type Department Care Team (Late st Contact Info) Description 04/02/2024 Refill [facility]INE [address] [place] [address] Richard Woods, EMILY [address] [place] [address] Opioid dependence, uncomplicated (CMS/HCC) Social History Tobacco [...] Visit [facility] MEDICINE [address] [place] [address] Lara Headley MD [address] [place] [phone] 04/30/2024 3:45 PM EST Office Visit [facility] MEDICINE [address] [place] [phone] Dalia El MD [address] [place] [address] 05/07/2024 2:30 PM EDT Office Visit [facility]ICINE [address] [place] [phone] Dlaia El MD [address] [place] [address] 05/25/2024 1:30 PM EDT Office Visit [facility] ADULT DENTAL [address] [place] [address] Armand Prieto DDS [address] [place] [phone] documented as of this encounter Visit Diagnoses Diagnosis Opioid dependence, uncomplicated (CMS/HCC) documented in this encounter Additional Health Concerns Assessment Noted Time PHQ-9 Depression Total Score: 3 09/30/19 24 10:01 AM EDT documented as of this encounter Care Teams Leisure Studies Professor Relationship Specialty Start Date End Date Lara Headley MD [address] [place] [address] PCP - General Family Medicine 08/31/16 documented as of this encounter
--- OUTSIDE RECORDS SUMMARY | 2024-04-26 15:16 | XMS_ITS | Encounter Summary ---
Author Organization [employer] Address [address] [facility] 7t [place] [address] Care Team Providers Care Statistical Engineer Name Role Phone Lara Headley MD Primary Care Provider + Reason for Visit * Reason Onset Date Comments Med Refill 04/23/2024 Encounter Details Date Type Department Care Team (Late st Contact Info) Description 04/23/2024 Refill [facility] [address] [place], [place] [phone] Dalia El MD [address] [place], [place] [phone] Opioid dependence, uncomplicated (CMS/HCC) Social History Tobacco [...] Description 04/30/2024 10:45 AM EST Office Visit [facility] [address] [place] [phone] Lara Headley MD [address] [place] [phone] 04/30/2024 3:45 PM EST Office Visit [facility] [address] [place] [address] Dalia El MD [address] [place] [phone] 05/07/2024 2:30 PM EDT Office Visit [facility] [address] [place] [address] Dalia El MD [address] [place] [address] 05/25/2024 1:30 PM EDT Office Visit [facility] [address] [place] [address] Armand Prieto DDS [address] [place], [place] [phone] documented as of this encounter Visit Diagnoses Diagnosis Opioid dependence, uncomplicated (CMS/HCC) documented in this encounter Additional Health Concerns Assessment Noted Time PHQ-9 Depression Total Score: 3 04/23/19 25 11:02 AM EST documented as of this encounter Care Teams Statistical Engineer Relationship Specialty Start Date End Date Lara Head[place] MD [address] [place] [address] PCP - General Family Medicine 08/31/16 documented as of this encounter
--- NOTE | 2024-04-26 15:17 | PC.NURSE ---
belongings locked in [facility] 1
--- OUTSIDE RECORDS SUMMARY | 2024-04-26 15:17 | XMS_ITS | Clinical Summary ---
Author Organization [employer] Address [address] [facility] [address] [place] [address] Care Team Providers Care Pvc Monitor Name Role Phone Lara Headley MD Primary Care Provider + Allergies No known active allergies Medications * This document contains information received from the source organization and may not represent a complete record from that organization. Blood Pressure Monitor kitIndications:P rimary hypertension Use as directed 3x/week 1 kit 09/04/19 23 Active albuterol (ProAir HFA) 108 (90 Base) MCG/ACT inhaler Inhale 2 puffs every 4 (four) hours if needed for shortness of breath or wheezing. 18 g 2 04/26/19 24 Active Menthol, Topical Analgesic, (Icy Hot) 5 % patch Apply to affected area 14 patch 06/24/19 24 Active pantoprazole (ProtoNix) 20 MG EC tablet Take 1 tablet (20 mg) by mouth before breakfast. Do not crush, chew, or split. 90 tablet 1 09/23/19 24 Active melatonin 5 MG tablet Take 2 tablets by mouth at bedtime. 09/23/19 24 Active acetaminophen (Tylenol) 500 MG tabletIndication s:Dental caries,Fractured dental scientology without loss of material Take 1 tablet (500 mg) by mouth every 6 (six) hours if needed for mild pain for up to 20 doses. 20 tablet 02/21/20 24 Active hydrOXYzine HCl (Atarax) 25 MG tablet Take 1 tablet by mouth every 6 (six) hours if needed for anxiety. 02/17/20 24 Active risperiDONE (RisperDAL) 3 MG tablet Take 1 tablet by mouth at bedtime. 02/17/20 24 Active sildenafil (Viagra) 100 MG tabletIndication s:Erectile dysfunction, unspecified erectile dysfunction type Take 1 tablet (100 mg) by mouth if needed each day for erectile dysfunction. 10 tablet 6 03/05/19 25 025 Active risperiDONE (RisperDAL) 1 MG tabletIndication s:Mixed Bipolar Affective Disorder Take 1 tablet (1 mg) by mouth with breakfast. 30 tablet 3 03/05/19 25 Active DULoxetine (Cymbalta) [address] capsule Take 1 capsule (30 mg) by mouth Once per day. Do not crush or chew. 90 capsule 1 03/05/19 25 026 Active cloNIDine (Catapres) 0.1 MG tablet Take 1 tablet (0.1 mg) by mouth 2 times daily. 60 tablet 03/05/19 25 026 Active Buprenorphine HCl-Naloxone HCl (Suboxone) 8-2 MG SL filmIndications: Opioid dependence, uncomplicated (CMS/HCC) Place 2 Film under the tongue Once per day for 7 days. 14 Film 04/02/19 25 Active Buprenorphine HCl-Naloxone HCl (Suboxone) 8-2 MG SL filmIndications: Opioid dependence, uncomplicated (CMS/HCC) Place 2 Film under the tongue Once per day for 7 days. 14 Film 04/23/19 25 025 Active Buprenorphine HCl-Naloxone HCl (Suboxone) 8-2 MG SL filmIndications: Opioid dependence, uncomplicated (CMS/HCC) Place 2 Film under the tongue Once per day for 7 days. 14 Film 03/23/19 25 025 Discontinued(R eorder (will not trigger notification to Pharmacy)) Buprenorphine HCl-Naloxone HCl (Suboxone) 8-2 MG SL filmIndications: Opioid dependence, uncomplicated (CMS/HCC) Place 2 Film under the tongue Once per day for 7 days. 14 Film 03/30/19 25 025 Discontinued(R eorder (will not trigger notification to Pharmacy)) Active Problems Problem Noted Date Diagnosed Date Schizoaffective disorder, depressive type 2024 Opioid dependence, uncomplicated 04/23/2024 Suicidal ideation 03/05/2024 Polysubstance abuse 03/05/2024 Assessment & Plan (03/05/2024 11:21 AM EST): Pt using heroin, cocaine, benzos. Advised regarding potential risk of overdose, , and cardiovascular complications. Discussed with him the importance of treatment of anxiety and addiction, reach out to recovery specialist. Continue to FU with [facility] program. FU with me in 3-4 weeks. Moderate benzodiazepine use disorder 03/05/2024 Assessment & Plan (03/05/2024 11:22 AM EST): Chronically using Klonopin BID off the street, advised risk of overdose and being tainted with other drugs. Fractured dental scientology without loss of mat erial 02/21/2024 KATHYA (acute kidney injury) 11/25/2023 Overview (11/25/2023): ACS + rhabdomyolysis 11/14/23 Assessment & Plan (11/25/2023 12:01 PM EDT): Likely sec to rhabdos, ACS. Repeat BMP, advised importance of hydration, avoid cocaine or any recreational sophia use Advised re tight HTN control NSTEMI (non-ST elevated myocardial infarction) 0 11/25/2023 Overview (11/25/2023): On 11/14/23, peak troponin at 36, had underlying SVT sec to cocaine use. Assessment & Plan (11/25/2023 12:00 PM EDT): Peak troponin at 36. I discussed with patient re dx and need for further evaluation of heart function. Repeat BNP, BMP and echo, will need referral to cards. Advised to avoid cocaine, drug use, smoking. Advised the importance of HTN control. Primary insomnia 09/23/2023 Assessment & Plan (09/23/2023 10:10 AM EDT): Will start Melatonin 10mg Declined anti anxiety meds for now Discussed with acrelia pro sleep hygiene, fu with . IFG (impaired fasting glucose) 05/27/2023 Assessment & Plan (06/24/2023 11:32 AM EDT): - I have discussed with patient regarding increasing physicial activity and decrease calorie intake - I'll check FBS with next set of labs. - To check RBS at next visit. - FU with me next visit - Gave information about pre-diabetes diet - f/u in 6 months Assessment & Plan (05/27/2023 4:17 PM EDT): I have discussed with patient regarding increasing physicial activity and decrease calorie intake I'll check FBS with next set of labs. To check RBS at next visit. FU with me in 1 week and will check HbA1C Opiate withdrawal 05/27/2023 Assessment & Plan (05/27/2023 4:18 PM EDT): Off opioids for one week. Will start Clonidine BID and follow up with me in one week. Pt is otherwise asymptomatic. Erectile dysfunction 04/26/2023 Assessment & Plan (03/05/2024 11:23 AM EST): Most likely related to fpc uncontrolled HTN and heroin use. Advised to control HTN and avoid heroin use. Prescription for Viagra sent to pharmacy to use 30 minutes prior to intercourse on an empty stomach. Advised to go to ED [facility] if he develops painful erection/priapism. Assessment & Plan (06/24/2023 11:32 AM EDT): - most likely related to uncontrolled hypertension and IFG. - counseled importance of tight control of CV risk factors - Prescribed Viagra to use PRN, pt is aware of side effects including facial flushing, headaches, priapism Assessment & Plan (05/27/2023 4:25 PM EDT): Most likely related to uncontrolled hypertension and new onset IFG. Testosterone levels are normal and pt is off opioids. Counseled about the importance of tight control of hypertension and IFG. Continue Viagra prn. Assessment & Plan (04/26/2023 9:31 AM EST): May be related to vascular inefficiencies from HTN vs low testosterone from liver disease Order labs Start Viagra 50-100 mg PRN, discussed about side effects such as facial flushing, headache, and psoriasis Symptomatic irreversible pulpitis 11/09/2022 Gastroesophageal reflux disease 09/03/2022 Assessment & Plan (09/03/2022 1:33 PM EDT): Restart pantoprazole PRN and Fu in 1 month Keep a symptom diary for triggering agents, counseled regarding weight reduction Cocaine use disorder 08/31/2022 Assessment & Plan (11/25/2023 12:03 PM EDT): D/w him re importance of MH treatment, reach out to a recovery specialist (he doesn't have one, he doesn't want a referral at this time). D/w him complications from most recent use (see above). He will fu prn Chronic low back pain 08/31/2022 Assessment & Plan (09/23/2023 10:09 AM EDT): Take Ibuprofen + Flexeril prn. Assessment & Plan (06/24/2023 11:34 AM EDT): - counseled about weight reduction and stretching exercises - prescribed heat pads, take Tylenol PRN and refer to PT Assessment & Plan (01/10/2023 12:24 PM EST): Use Tylenol or Ibuprofen PRN Dental abscess 08/09/2022 Periodontal disease 08/09/2022 Dental calculus 07/18/2022 Dental caries 07/18/2022 Posttraumatic stress disorder 03/10/2019 Generalized anxiety disorder 11/08/2016 Assessment & Plan (03/05/2024 1:45 PM EST): Uncontrolled, most likely related to continued drug abuse. Start Risperdal 1 mg in the morning, continue 3 mg at night + start Duloxetine 30 mg and FU with me in 3-4 weeks. Continue Clonidine 0.1 BID (started at hospital, unclear if pt is taking it). Pt does not seem to be taking Gabapentin or Hydroxyzine, needs further evaluation by psychiatrist. Pt feels safe at home and denies HI or SI, he has crisis number. Pt was seen by today. 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 I gave him CB info to reach out for an appt. He feels safe at home now and is able to reach out for safety. FU at next appt, needs to bring med bottles. Assessment & Plan (04/26/2023 3:25 PM EST): Pt probably has his anxiety exacerbated by methadone taper Counseled to discuss with recovery specialist regarding holding off on methadone taper Start Wellbutrin 150 mg and fu at next visit Continue close fu with therapist Saúl Angeles, I will refer to to help him coordinate referral to a psych Rx in the [place]. Assessment & Plan (12/25/2022 9:50 AM EDT): Written consent obtained for ear acupuncture. Ears prepped with alcohol pad. Five ear points needled bilaterally: Sympathetic, Pruitt Men, Kidney, Liver and Lung. Treatment duration: 30 minutes. Good hemostasis. Patient tolerated well. Follow up weekly for repeat acupuncture treatments as desired. Assessment & Plan (10/03/2022 12:04 PM EDT): Pt feels safe at home and is able to contract for safety agreed to be referred to counselor and psychiatry if needed Visual impairment 11/08/2016 Drug induced insomnia 11/08/2016 Opioid use disorder 11/08/2016 Assessment & Plan (09/23/2023 10:08 AM EDT): Had a recent relapse on 06/2023, he continues to be off methadone. Advised to reach out to recovery specialist, discussed with him re early signs of relapse/cravings. Will continue to fu with counselor but I will refer him to a local one, hopefully in person. He's able to reach out for safety. Assessment & Plan (06/24/2023 11:33 AM EDT): - he is off Methadone and denies having any cravings - counseled about importance of anxiety management, reach out for safety, and to work with recovery specialist - f/u in 3 months Assessment & Plan (04/26/2023 9:29 AM EST): Cutting down on methadone, is probably having increased anxiety due to this/?withdrawal Sx Counseled to slow down on taper and fu w recovery specialist We discussed importance of not using recreational substances Assessment & Plan (10/03/2022 12:04 PM EDT): Currently on methadone 30mg continues to live in custodial where he has recovery specialist and support groups Assessment & Plan (09/03/2022 1:34 PM EDT): Currently on methadone 30mg in [facility] Methadone [facility] Continue residential recovery program in [facility] Counseled to avoid alcohol, drugs, currently sober FU PRN Major depressive disorder with psychotic feature s 09/28/2014 Essential hypertension 09/28/2014 Assessment & Plan (03/05/2024 11:19 AM EST): Uncontrolled today, most likely related to benzo withdrawal, he is off medications for HTN and DARSHANA. Start Clonidine 0.1 mg BID to help with withdrawals, advised to cut down on use of benzos. Start treatment for DARSHANA today. Restart Lisinopril 20 mg and FU with me in 3-4 weeks. Assessment & Plan (11/25/2023 11:58 AM EDT): It seems to be better controlled. Continue lisinopril and clonidine same dose, per med profile, he's not compliant but it is possible that he has old med bottles at home. I will re conciliate med doses at next appt once he brings med bottles. Counseled re low salt diet/increase moderate physical activity. Check home BP BIW and prn CP/HERRING/CHERY Order labs prior to next appt Assessment & Plan (09/23/2023 10:07 AM EDT): Borderline controlled, stage 1. Continue lisinopril + nifedipine and fu with me in 4-6w with BP readings Advised to avoid using recreational substances Counseled re low salt diet/increase moderate physical activity. Check home BP BIW and prn CP/HERRING/CHERY Assessment & Plan (06/24/2023 11:29 AM EDT): - Uncontrolled. Advised to restart Lisinopril and f/u in 3-4 weeks - Counseled re low salt diet/increase moderate physical activity. - Check home BP BIW and prn CP/HERRING/CHERY - Non smoking patient. Assessment & Plan (05/27/2023 4:24 PM EDT): BP uncontrolled, Most likely secondary to opioids withdrawal. Will add Clonidine 0.1 mg BID and follow up with me in 1 week. Continue Lisinopril 40 mg. Discussed with him the importance of avoiding the use of recreational substances. Assessment & Plan (04/26/2023 9:28 AM EST): Uncontrolled today, unclear if related to rapid opioid taper Continue lisinopril 20 mg and order labs Counseled re low salt diet/increase moderate physical activity. Check home BP BIW and prn CP/HERRING/CHERY Non smoking patient. Fu in 4-5 wks w BP reading Counseled to hold off on Methadone taper until anxiety is treated Assessment & Plan (01/10/2023 12:24 PM EST): Better controlled Cont working on lifetime modifications. Counseled re low salt diet/increase moderate physical activity. Continue lisinopril 20mg daily Check home BP BIW and prn CP/HERRING/CHERY Non smoking patient. FU in 2 months with labs Assessment & Plan (01/10/2023 11:51 AM EST): Uncontrolled. Compliant w/meds Increase lisinopril to 10 mg x 2 weeks, then 20 mg thereafter Counseled re low salt diet/increase moderate physical activity. Check home BP BIW and prn CP/HERRING/CHERY Non smoking patient. FU with me in 6 weeks He will receive PNA IZ today and counseled on Covid booster in out vaccine clinic. Assessment & Plan (10/03/2022 12:05 PM EDT): I will start him on lisinopril 5 mg fu with Rn in 4 weeks and with me in 8 weeks Counseled re low salt diet/increase moderate physical activity. Check home BP BIW and prn CP/HERRING/CHERY Non smoking patient. Counseled to avoid drugs Assessment & Plan (09/03/2022 1:34 PM EDT): Uncontrolled, pt is off medications. Counseled re low salt diet/increase moderate physical activity. Check home BP BIW and prn CP/HERRING/CHERY Non smoking patient. Order labs and fu with me in 4 weeks. Dyslipidemia 09/28/2014 Resolved Problems Problem Noted Date Diagnosed Date Resolved Date Chronic hepatitis C 08/31/2022 06/24/19 24 Assessment & Plan (10/03/2022 12:05 PM EDT): Pt wants to get treated. I contacted HCV treatment and they will make an appointment for intake. Counseled regarding avoid drugs or alcohol. He had Hep b booster on 02/2019 Assessment & Plan (09/03/2022 1:34 PM EDT): Never treated. Order labs and FU in 4 weeks for referral for HCV treatment if needed Counseled to avoid alcohol, drugs Encounters * This document contains information received from the source organization and may not represent a complete record from that organization. Date Type Department Care Team Description 04/24/2024 Patient Outreach [facility] [address] [place] [phone] Lara Headley MD Transition Of Care (Tcm) 04/23/2024 2:45 PM EST Office Visit [facility] [address] [place] [address] [phone] Dalia El MD Opioid dependence, uncomplicated (CMS/HCC) (Primary Dx); Schizoaffective disorder, depressive type (CMS/HCC) 04/23/2024 Telephone [facility] [address] [place] [address] [phone] Lara Headley MD 04/23/2024 Refill [facility] [address] [place] [address] 95329 Dalia El MD Opioid dependence, uncomplicated (CMS/HCC) 04/23/2024 Travel 04/23/2024 Patient Outreach [facility] [address] [place] [address] 84327 Sharif Rider [facility] 04/20/2024 Patient Outreach [address] [address] Jack Tavares [facility] 04/17/2024 Patient Outreach [address] [address] Sharif Rider [facility] 04/16/2024 Patient Outreach [facility] [address] [place] [address] Lara Headley MD Care Coordination (Outreach/) 04/16/2024 Travel 04/06/2024 Patient Outreach [address] [address] Lara Headley MD Transition Of Care (Tcm) 04/05/2024 Orders Only GENERIC EXTERNAL DATA DEPARTMENT Provider, Generic External Data 04/02/2024 2:30 PM EST Office Visit [address] [address] Dalia El MD Opioid type dependence, continuous (CMS/HCC) (Primary Dx) 04/02/2024 Refill [facility] [address] [place] [address] 59945 Richard Woods RN Opioid dependence, uncomplicated (CMS/HCC) 04/02/2024 Patient Outreach [address] [address] Sharif Rider [facility] 04/02/2024 Travel 04/01/[address] [address] Richard Woods RN 03/30/2024 Patient Outreach [address] [address] Sharif Rider [facility] 03/30/[address] [address] Lara Headley MD 03/30/2024 Refill [facility] [address] [place] [address] 27117 Richard Woods RN Opioid dependence, uncomplicated (CMS/HCC) 03/27/2024 11:30 AM EST Clinical Support [facility] [address] [place] [address] Richard Woods RN Opioid dependence, uncomplicated (CMS/HCC) (Primary Dx) 03/27/2024 Travel 03/26/2024 Patient Outreach [facility] [address] [place] [address] Lara Headley MD Care Coordination (Outreach) 03/23/2024 Refill [facility] [address] [place] [address] [phone] Richard Woods RN Opioid dependence, uncomplicated (CMS/HCC) 03/23/2024 Orders Only GENERIC EXTERNAL DATA DEPARTMENT Provider, Generic External Data 03/22/2024 Orders Only GENERIC EXTERNAL DATA DEPARTMENT Provider, Generic External Data 03/20/2024 9:50 AM EST Clinical Support [facility] [address] [place] [address] 85620 Richard Woods RN Opioid dependence, uncomplicated (CMS/HCC) (Primary Dx) 03/20/2024 Patient Outreach [address] [address] Sharif iRder [facility] 03/20/2024 Travel 03/19/2024 Patient Outreach [facility] [address] [place] [address] Lara Headley MD Care Coordination (Outreach) 03/17/2024 Refill [facility] [address] [place] [address] Richard Woods RN Opioid dependence, uncomplicated (CMS/HCC) 03/12/2024 1:45 PM EST Office Visit [facility] [address] [place] [address] 27563 Dalia El MD Opioid dependence, uncomplicated (CMS/HCC) (Primary Dx); Generalized anxiety disorder 03/12/2024 Refill [facility] [address] [place] [address] 64421 Richard Woods RN Opioid dependence, uncomplicated (CMS/HCC) 03/12/2024 Refill [facility] [address] [place] [address] 67741 Richard Woods RN Opioid dependence, uncomplicated (CMS/HCC) 03/12/2024 Travel 03/12/2024 Patient Outreach [facility] [address] [place] [address] Lara Headley MD Transition Of Care (Tcm) 03/12/[address] [address] Lara Headley MD Error (VOID this visit) 03/11/2024 Patient Outreach [facility] [address] [place] [address] Lara Headley MD Care Coordination (Outreach) 03/11/2024 Patient Outreach [facility] [address] [place] [address] Armand Dykes 03/11/2024 Patient Outreach [address] [address] Jack Tavares [facility] 03/11/2024 Travel 03/10/2024 Patient Outreach [address] [address] Evaristo Canchola Recovery [facility] 03/09/2024 Patient Outreach [address] [address] Lara Headley MD Transition Of Care (Tcm) 03/09/2024 Telephone [facility] [address] [place] [address]642 Lara Headley MD 03/06/2024 Patient Outreach [address] [address] Armand Dykes [facility] 03/05/2024 11:30 AM EST Clinical Support [address] [address] Richard Woods RN Opioid dependence, uncomplicated (CMS/HCC) (Primary Dx) 03/05/2024 10:45 AM EST Office Visit [address] [address] Lara Headley MD Generalized anxiety disorder (Primary Dx); Essential hypertension; Polysubstance abuse (CMS/HCC); Moderate benzodiazepine use disorder (CMS/HCC); Erectile dysfunction, unspecified erectile dysfunction type 03/05/2024 Refill [facility] [address] [place] [address] 06789 Richard Woods RN Opioid dependence, uncomplicated (CMS/HCC) 03/05/2024 Patient Outreach [facility] [address] [place] [address] Armand Dykes [facility] 03/05/2024 Travel 03/04/[address] [address] Gaby Black [place] Chart prep 03/04/2024 Patient Outreach [facility] [address], [place] [phone] Lara Headley MD Care Coordination (Outreach) 03/03/[address] [address] Lara Headley MD Record Request 03/03/[address] [address] Heidi Aguilera, PharmD 03/02/2024 Refill [facility] [address] [place] [address] 39492 Richard Woods RN Opioid dependence, uncomplicated ([facility]/HCC) 03/02/2024 Orders Only GENERIC EXTERNAL DATA DEPARTMENT Provider, Generic External Data 03/02/2024 Patient Outreach [address] [address] Lara Headley MD Transition Of Care (Tcm) 02/28/2024 10:30 AM EST Clinical Support [facility] [address] [place] [address] 10295 Richard Woods RN Opioid dependence, uncomplicated ([facility]) (Primary Dx) 02/28/2024 Travel 02/28/2024 Patient Outreach [facility] [address] [place] [address]276 Lara Headley MD Transition Of Care (Tcm) 02/24/2024 Patient Outreach [facility] [address], [place] [phone] Lara Headley MD 02/24/2024 Patient Outreach [facility] [address] [place] [address] Lara Headley MD Care Coordination (Outreach) 02/24/2024 Patient Outreach [facility] [address] [place] [address] Lara Headley MD Care Coordination (Care Coordination) 02/24/2024 Orders Only GENERIC EXTERNAL DATA DEPARTMENT Provider, Generic External Data 02/21/2024 9:30 AM EST Office Visit [facility] [address] [place] [address] Armand Prieto DDS Dental caries (Primary Dx); Fractured dental scientology without loss of material 02/21/2024 Patient Outreach [address] [address] Jack Tavares RC Recovery Supports 02/20/2024 1:30 PM EST Clinical Support [address] [address] Richard Woods RN Opioid dependence, uncomplicated (CMS/HCC) (Primary Dx) 02/20/2024 Patient Outreach [address] [address] Evaristo Canchola [facility] Recovery Supports 02/20/[address] [address] Richard Woods, RN Opioid dependence, uncomplicated (CMS/HCC) 02/20/2024 Travel 02/18/2024 Patient Outreach [address] [address] Brendan Valiente RC Recovery Supports 02/18/2024 Patient Outreach [address] [address] Sharif Rider [facility] Recovery Supports 02/17/2024 Patient Outreach [facility] [address] [place] [address] Lara Headley MD Care Coordination (Outreach) 02/14/2024 Patient Outreach [facility] [address] [place] [address] Lara Headley MD Transition Of Care (Tcm) (HDF scheduled, SDOH was completed on 09/13/2023) 02/13/[address] [address] Richard Woods RN Opioid dependence, uncomplicated (CMS/HCC) 02/12/2024 Patient Outreach [address] [address] Lara Headley MD Transition Of Care (Tcm) 02/11/[address] [address] Lara Headley MD March02/11/2024 Patient Outreach [facility] [address], [place] [phone] Sangeetha Richardson Care Coordination (Outreach) 02/10/2024 1:30 PM EST Office Visit [address] [address] Dalia El MD Opioid dependence, uncomplicated (CMS/HCC) (Primary Dx) 02/10/2024 10:00 AM EST Office Visit [address] [address] Tiny Becerra RN Uncomplicated opioid dependence ([facility]/HCC) 02/10/2024 Orders Only [facility] External Provider, [facility] 02/10/2024 Patient Outreach [address] [address] Brendan Valiente [facility] Recovery Supp[facility] 02/10/2024 Travel 02/07/2024 Patient Outreach [address] [phone] Sharif [facility] from Last 3 Months Immunizations Name Administration Dates Next Due Hep B, adult 03/27/2019 Influenza injectable quadriv alent IIV4 with preservative 01/27/2019 Influenza injectable quadrivalent preservative f ree 11/29/2022,01/24/2021 Influenza, seasonal, injectable, preservative fr ee 01/10/2024,11/15/2023 Guera SARS-CoV-2 Vaccination 09/19/2020 Tdap 01/27/2019 Social History Tobacco Use Types Packs/Day Years Used Date Smoking Tobacco: Never Passive Smoke Exposure: Never Smokeless Tobacco: Never Tobacco Cessation:Counseling Given: Not Answered Alcohol Use Standard Drinks/Week Comments Never 0 [...] Orientation Straight 12/25/2021 10 :18 AM EDT Last Filed Vital Signs Vital Sign Reading Time Taken Comments Blood Pressure 161/103 03/05/2024 10:20 AM EST Pulse 98 03/05/2024 10:20 AM EST Temperature 37.8 ??C (100.1 ??F) 03/05/2024 10:20 AM EST Respiratory Rate 20 02/10/2024 1:27 PM EST Oxygen Saturation 100% 03/05/2024 10:20 AM EST Inhaled Oxygen Concentration - - Weight 78.1 kg (172 lb 2 oz) 03/05/2024 10:20 AM EST Height 162.6 cm (5' 4 ) 03/05/2024 10:20 AM EST Body Mass Index 29.55 03/05/2024 10:20 AM EST Plan of Treatment Upcoming Encounters Date Type Department Care Team (Late st Contact Info) Description 04/30/2024 10:45 AM EST Office Visit [facility] MEDICINE [address] [place] [phone] Lara Headley MD [address] [place] [address] 04/30/2024 3:45 PM EST Office Visit [address] [address] Dalia El MD [address] [place] [phone] 05/07/2024 2:30 PM EDT Office Visit [address] [address] Dalia El MD [address] [place] [phone] 05/25/2024 1:30 PM EDT Office Visit [facility] ADULT DENTAL [address] [place] [phone] Armand Prieto DDS [address] [place] [address] Health Maintenance Due Date Last Done Comments CT Colonography 1974 Colonoscopy 1974 Colorectal Cancer Screening 1974 FIT DNA/Cologuard 1974 FIT 1974 FOBT 1974 Sigmoidoscopy 1974 Family Planning (PISQ) 1989 Hepatitis A Vaccines (1 of 2 - Risk 2-dose series) 1993 Pneumococcal Vaccine: Pediatrics (0 to 5 Years) and At-Risk Patients (6 to 49) Years) (1 of 2 - PCV) 1993 Hepatitis B Vaccines (2 of 3 - 19+ 3-dose series) 04/24/2019 03/27/2019 Dental Oral Exam 01/19/2023 07/18/2022 Dental Prophylaxis 02/28/2023 08/27/2022 COVID-19 Vaccine ( - 2023- season) 2023 02/23/2021, 09/19/2020 Dental X-Ray: Bitewings 12/27/2023 12/25/2022, 07/18 Zoster Vaccines (1 of 2) 2024 SDOH Screening 09/12/2024 09/13/2023 Alcohol/Substance Use Screening 04/23/2025 04/23/2024 Depression Screening 04/23/2025 04/23/2024, 04/23/19 Tobacco Screening 04/23/2025 04/23/2024 Dental X-Ray: Full Mouth 07/19/2025 07/18/2022 Lipid Panel 09/15/2027 09/14/2022 DTaP/Tdap/Td Vaccines (2 - Td or Tdap) 01/27/2029 01/27/2019 RSV Patients and Patients Aged 60 years or older (1 - 1-dose 75+ series) 2049 HIV Screening Completed 09/14/2022 Influenza Vaccine Completed 01/10/2024, , 11/29/2022, Additional history exists HIB Vaccines Aged Out No longer eligi ble based on patient's age to complete this topic HPV Vaccines Aged Out No longer eligi ble based on patient's age to complete this topic IPV Vaccines Aged Out No longer eligi ble based on patient's age to complete this topic Meningococcal Vaccine Aged Out No kevin germán eligible based on patient's age to complete this topic RSV under 20 months Aged Out No longe r eligible based on patient's age to complete this topic Rotavirus Vaccines Aged Out No longer eligible based on patient's age to complete this topic Procedures Procedure Name Priority Date/Time Associated Diagnosis Comments POCT RIN-14 URINE DRUG SCREEN Routine 04/23/2024 1:11 PM EST Opioid dependence, uncomplicated (CMS/HCC) COVID-19 ID NOW (RODRIGUEZ) Routine 04/05/2024 8:51 AM EST DRUG MONITOR, PANEL 1, SCREEN, URINE Routine 04/05/2024 8:23 AM EST URINALYSIS WITH REFLEX TO MICROSCOPIC Routine 04/05/2024 8:23 AM EST ACETAMINOPHEN LEVEL Routine 04/05/2024 8 :19 AM EST SALICYLATE Routine 04/05/2024 8:19 AM EST ETHANOL Routine 04/05/2024 8:19 AM EST COMPREHENSIVE METABOLIC PANEL Routine 04/05/2024 8:19 AM EST CBC WITH AUTO DIFFERENTIAL Routine 04/05/2024 8:19 AM EST POCT RIN-14 URINE DRUG SCREEN Routine 04/02/2024 1:25 PM EST Opioid type dependence, continuous (CMS/HCC) POCT RIN-14 URINE DRUG SCREEN Routine 03/27/2024 11:02 AM EST Opioid dependence, uncomplicated (CMS/HCC) COMPREHENSIVE METABOLIC PANEL Routine 03/23/2024 8:38 AM EST URINALYSIS WITH REFLEX MICROSCOPIC Routine 03/23/2024 8:38 AM EST CBC WITH AUTO DIFFERENTIAL Routine 03/23/2024 8:38 AM EST DRUG MONITOR, PANEL 1, SCREEN, URINE Routine 03/22/2024 9:50 AM EST POCT RIN-14 URINE DRUG SCREEN Routine 03/20/2024 9:36 AM EST Opioid dependence, uncomplicated (CMS/HCC) POCT RIN-14 URINE DRUG SCREEN Routine 03/12/2024 2:59 PM EST Opioid dependence, uncomplicated (CMS/HCC) POCT RIN-14 URINE DRUG SCREEN Routine 03/05/2024 9:37 AM EST Opioid dependence, uncomplicated (CMS/HCC) DRUG MONITOR, PANEL 1, SCREEN, URINE Routine 03/02/2024 9:00 AM EST URINALYSIS, COMPLETE, WITH REFLEX TO CULTURE Routine 03/02/2024 9:00 AM EST POCT RIN-14 URINE DRUG SCREEN Routine 02/28/2024 4:01 PM EST Opioid dependence, uncomplicated (CMS/HCC) URINALYSIS WITH REFLEX TO MICROSCOPIC Routine 02/24/2024 8:25 AM EST DRUG MONITOR, PANEL 1, SCREEN, URINE Routine 02/24/2024 8:25 AM EST ETHANOL Routine 02/24/2024 6:54 AM EST MAGNESIUM Routine 02/24/2024 6:54 AM EST BASIC METABOLIC PANEL Routine 02/24/2024 6:54 AM EST HEPATIC FUNCTION PANEL Routine 02/24/2024 6:54 AM EST CBC WITH AUTO DIFFERENTIAL Routine 02/24/2024 6:54 AM EST CASE PRESENTATION, DETAILED AND EXTENSIVE TREATMENT PLANNING Routine 02/21/2024 9:30 AM EST INTRAORAL - PERIAPICAL FIRST RADIOGRAPHIC IMAGE Routine 02/21/2024 9:30 AM EST PALLIATIVE (EMERGENCY) TREATMENT OF DENTAL PAIN - MINOR PROCEDURE Routine 02/21/2024 9:30 AM EST 4 CROWN - PORCELAIN/CERAMIC Routine 02/21/2024 12:00 AM EST 5 PREFABRICATED POST AND CORE IN ADDITION TO CROWN Routine 02/21/2024 12:00 AM EST 4 PREFABRICATED POST AND CORE IN ADDITION TO CROWN Routine 02/21/2024 12:00 AM EST 5 CROWN - PORCELAIN/CERAMIC Routine 02/21/2024 12:00 AM EST POCT RIN-14 URINE DRUG SCREEN Routine 02/20/2024 1:16 PM EST Opioid dependence, uncomplicated (CMS/HCC) US ABDOMEN LIMITED Routine 02/11/2024 5: 50 PM EST ETHANOL Routine 02/11/2024 7:54 AM EST COMPREHENSIVE METABOLIC PANEL Routine 02/11/2024 7:54 AM EST CBC WITH AUTO DIFFERENTIAL Routine 02/11/2024 7:54 AM EST POCT RIN-14 URINE DRUG SCREEN Routine 02/10/2024 1:12 PM EST Opioid dependence, uncomplicated (CMS/HCC) BITEWING - SINGLE RADIOGRAPHIC IMAGE Routine 12/25/2022 11:30 AM EDT HIV ANTIBODY/ANTIGEN ([place] [facility]) Routine 09/14/2022 11:14 AM EDT LIPID PANEL, STANDARD Routine 09/14/2022 11:14 AM EDT PROPHYLAXIS - ADULT Routine 08/27/2022 1 0:00 AM EDT INTRAORAL - COMPLETE SERIES OF RADIOGRAPHIC IMAGES Routine 07/18/2022 10:00 AM EDT COMPREHENSIVE ORAL EVALUATION - NEW OR ESTABLISHED PATIENT Routine 07/18/2022 10:00 AM EDT from Last 3 Months or Most Recently Relevant to Health Maintenance Results * POCT RIN-14 Urine Drug Screen (04/23/2024 1:11 PM EST) Only the most recent of9 resultswithin the time period is included. THC Negative Cocaine Screen, Urine Positive Opiate [...] CARE TEST ENTER/ARIELLE T ORDERABLES Final Result * COVID-19 ID NOW (Treatspace) (04/05/2024 8:51 AM EST) IDNOW SERIAL# [id number] [facility] COVID-19 TEST Negative Negative [facility] COVID-19 NOTE See Note [facility] Comment: Results are for the identification of SARS-CoV2 RNA. TheSARS-CoV2 RNA is generally detectable in respiratory samplesduring the acute phase of infection. Positive results areindicative of the presence of SARS-CoV-2 RNA; clinicalcorrelation with patient history and other diagnosticinformation is necessary to determine patient infectionstatus. Positive results do not rule out bacterial infectionor co- infection with other viruses.Testing facilities within the [facility] and [facility] are required to report all positive results [...] use by authorized laboratories.Testing performed on the [email or web address] ID NOW utilizing NAAT. 04/05/2024 8:51 AM EST 04/05/2024 8:54 AM EST us Generic External Data Provider LAB MOLECULAR MARIANA [employer] ORDERABLES Final Result Performing Organization Address [facility] Co de Phone Number [facility] [address] [place] [phone] * (ABNORMAL) Urinalysis with Reflex to Microscopic (04/05/2024 8:23 AM EST) Only the most recent of2 resultswithin the time period is included. Color Urine Yellow [facility] Appearance Urine Clear [facility] PH 6.0 5.0 - 9.0 [facility] Glucose Urine UA Negative Negative mg/dL [facility] Urine Blood Negative Negative [facility] Specific [place] - Urine >=1.030(H) 1.005 - 1.025 [facility] Urine Protein Trace Neg-Trace mg/dL [facility] Urine Ketones Negative Negative mg/dL [facility] Nitrite Urine Negative Negative [facility] Leukocyte Esterase Urine Negative Negative [facility] 04/05/2024 8:23 AM EST 04/05/2024 8:26 AM EST [employer] External Data Provider LAB URINE ORDERAB LES Final Result Performing Organization Address [facility] de Phone Number [facility] [address] [place] [phone] * (ABNORMAL) Drug Monitoring, Panel 1, Screen, Urine (04/05/2024 8:23 AM EST) Only the most recent of4 resultswithin the time period is included. Opiate Screen Urine POSITIVE(A) Not Detect [facility] Comment:Opiate cut-off is 30 0 ng/mL.Positive results are unconfirmed and should not be used fornon-medical purposes. Barbiturates, Urine Not Detected Not Detect [facility] Comment:Barbiturate cut-off is 200 ng/mL.Positive results are unconfirmed and should not be used fornon-medical purposes. Phencyclidine Screen Urine Not Detected Not Detect [facility] Comment:Phencyclidine cut-of f is 25 ng/mL.Positive results are unconfirmed and should not be used fornon-medical purposes. Amphetamine Screen Urine Not Detected Not Detect [facility] Comment:Amphetamine cut-off is 1000 ng/mL.Positive results are unconfirmed and should not be used fornon-medical purposes. Benzodiazepines Screen Urine Not Detected Not Detect [facility] Comment:Benzodiazepine cut-o ff is 200 ng/mL.Positive results are unconfirmed and should not be used fornon-medical purposes. Cocaine Screen Urine POSITIVE(A) Not Detect [facility] Comment:Cocaine cut-off is 3 00 ng/mL.Positive results are unconfirmed and should not be used fornon-medical purposes. Cannabinoid Screen Urine POSITIVE(A) Not Detect [facility] Comment:Cannabinoid cut-off is 50 ng/mL.Positive results are unconfirmed and should not be used fornon-medical purposes. Methadone Screen, Urine Not Detected Not Detect ng/mL [facility] Comment:Methadone cut-off is 300 ng/mL.Positive results are unconfirmed and should not be used fornon-medical purposes. FENTANYL URINE POSITIVE(A) Not Detect [facility] Comment:Fentanyl cut-off is 1 ng/mL.Positive results are unconfirmed and should not be used fornon-medical purposes. Oxycodone Urine Screen Not Detected Not Detect ng/mL [facility] Comment:Oxycodone cut-off is 100 ng/mL.Positive results are unconfirmed and should not be used fornon-medical purposes. Buprenorphine Screen Positive(A) Not Detect ng/mL [facility] Comment:Buprenorphine cut-of f is 5 ng/mL.Positive results are unconfirmed and should not be used fornon-medical purposes. 04/05/2024 8:23 AM EST 04/05/2024 8:26 AM EST us Generic External Data Provider LAB URINE ORDERAB LES Final Result [facility] [address] [place] [phone] * Ethanol (04/05/2024 8:19 AM EST) Only the most recent of3 resultswithin the time period is included. ETHANOL (MG/DL) IN SER/PLAS <10 mg/dL [facility] Comment:Serum/plasma ethanol results are to be used formedical/treatment purposes only. 04/05/2024 8:19 AM EST 04/05/2024 8:26 AM EST us Generic External Data Provider LAB BLOOD ORDERAB LES Final Result [facility] [address] [place] [phone] * (ABNORMAL) CBC auto differential (04/05/2024 8:19 AM EST) Only the most recent of4 resultswithin the time period is included. White Blood Count 5.1 4.8 - 10.8 X10*3/uL [facility] Red Blood Count 4.40(L) 4.60 - 5.80 X10*6/uL [facility] Hemoglobin 11.6(L) 14.0 - 18.0 g/dl [facility] Hematocrit 36.8(L) 42.0 - 52.0 % [facility] Mean Corpuscular Volume 83.6 80.0 - 98.0 fL [facility] Mean Corpuscular Hemoglobin 26.4(L) 27.0 - 33.0 pg [facility] Mean Corpuscular HGB Conc 31.5 31.0 - 36.0 g/dl [facility] Red Cell Distribution Width 14.4 11.0 - 16.0 % [facility] Platelet Count 368 160 - 400 X10*3/uL [facility] Mean Platelet Volume 8.3(L) 9.4 - 12.4 fL [facility] Neutrophils Percent Auto 62.1 45 - 73 % [facility] Imm Gran Pct Auto 0.4 0.0 - 0.4 % [facility] Lymphocytes Percent Auto 19.0(L) 20 - 40 % [facility] Monocytes Percent Auto 16.1(H) 2 - 11 % [facility] Eosinophils Percent Auto 1.6 0 - 4 % [facility] Basophils Percent Auto 0.8 0 - 2 % [facility] NRBC Pct Auto 0.0 0.0 - 0.2 /100WBC [facility] Neutrophils Absolute Auto 3.2 2.0 - 8.3 x10*3/uL [facility] Imm Gran Abs Auto 0.02 0.00 - 0.03 X10*3/uL [facility] Lymphocytes Absolute Auto 1.0(L) 1.2 - 4.9 X10*3/uL [facility] Monocytes Absolute Auto 0.8 0.1 - 1.2 X10*3/uL [facility] Eosinophils Absolute Auto 0.1 0.0 - 0.4 X10*3/uL [facility] Basophils Absolute Auto 0.0 0.0 - 0.2 X10*3/uL [facility] NRBC Abs Auto 0.000 0.0 - 0.012 X10*3/uL [facility] 04/05/2024 8:19 AM EST 04/05/2024 8:26 AM EST us Generic External Data Provider LAB BLOOD ORDERAB LES Final Result Performing Organization Address City/[facility]/ZIP Co de Phone Number [facility] [address] [place] [phone] * Acetaminophen level (04/05/2024 8:19 AM EST) Acetaminophen LAB <3 <30 mcg/mL [facility] 04/05/2024 8:19 AM EST 04/05/2024 8:26 AM EST us Generic External Data Provider LAB BLOOD ORDERAB LES Final Result Performing Organization Address [facility]/ZIP Co de Phone Number [facility] [address] [place] [phone] * (ABNORMAL) Salicylate (04/05/2024 8:19 AM EST) Salicylate <5.0(L) 15 - 30 mg/dL [facility] 04/05/2024 8:19 AM EST 04/05/2024 8:26 AM EST us Generic External Data Provider LAB BLOOD ORDERAB LES Final Result [facility] [address] [place] [phone] * (ABNORMAL) Comprehensive Metabolic Panel (04/05/2024 8:19 AM EST) Only the most recent of3 resultswithin the time period is included. Sodium 141 135 - 145 mmol/L [facility] Potassium 4.2 3.3 - 5.1 mmol/L [facility] Chloride 105 96 - 108 mmol/L [facility] Carbon Dioxide 28 22 - 29 mmol/L [facility] Anion Gap 12 12 - 20 [facility] Urea Nitrogen (BUN) 25(H) 9 - 16 mg/dL [facility] Creatinine, Serum 1.02 0.5 - 1.4 mg/dL [facility] Creatinine Clr Calc Pharmacy 80.1 [facility] Comment:eGFR (calculated fro m the MDRD study equation) and eCrCl(calculated from the Cockcroft-Gault equation) are based ondifferent parameters and may not yield comparable results.If eCrCl result is absurd, please check patient'sheight/weight. Estimated Glomerular Filt Rate >60 [facility] Comment:Chronic Kidney Disea se: Estimated GFR < 60 mL/min/[id number] Kidney Disease: Estimated GFR < 15 mL/min/1.73m2 Glucose 110 60 - 115 mg/dL [facility] Calcium 9.3 8.4 - 10.2 mg/dL [facility] Bilirubin, Total 0.2 0.0 - 1.0 mg/dL [facility] Aspartate Amino Transferase 39(H) 5 - 37 U/L [facility] Alanine Aminotransferase 29 0 - 40 U/L [facility] Total Protein 7.9 6.5 - 8.0 g/dL [facility] Albumin Level 4.0 3.5 - 5.0 g/dL [facility] Alkaline Phosphatase 85 39 - 117 U/L [facility] 04/05/2024 8:19 AM EST 04/05/2024 8:26 AM EST Generic External Data Provider LAB BLOOD ORDERAB LES Final Result Performing Organization Address [facility]/ZIP Co de Phone Number [facility] [address] [place] [address] [phone] * (ABNORMAL) Urinalysis w/reflex microscopic (03/23/2024 8:38 AM EST) Color Urine Yellow [facility] Appearance Urine Clear [facility] PH 6.0 5.0 - 9.0 [facility] Glucose Urine UA Negative Negative mg/dL [facility] Urine Blood Negative Negative [facility] Specific [place] - Urine >=1.030(H) 1.005 - 1.025 [facility] Urine Protein Negative Neg-Trace mg/dL [facility] Urine Ketones Trace Negative mg/dL [facility] Nitrite Urine Negative Negative [facility] Leukocyte Esterase Urine Negative Negative [facility] 03/23/2024 8:38 AM EST 03/23/2024 8:49 AM EST Narrative [facility] - 03/23/2024 8:55 AM EST [id number], Clean Catch us Generic External Data Provider LAB URINE ORDERAB LES Final Result Performing Organization Address [facility]/ZIP Co de Phone Number [facility] [address] [place] [phone] * Urinalysis, Complete, with Reflex to Culture (03/02/2024 9:00 AM EST) Color Urine Yellow [facility] Appearance Urine Clear [facility] PH 6.0 5.0 - 9.0 [facility] Glucose Urine UA Negative Negative mg/dL [facility] Urine Blood Negative Negative [facility] Specific [place] - Urine 1.025 1.005 - 1.025 [facility] Urine Protein Negative Neg-Trace mg/dL [facility] Urine Ketones 40 Negative mg/dL [facility] Nitrite Urine Negative Negative [facility] Leukocyte Esterase Urine Negative Negative [facility] RBC Urine 0-2 0 - 2 /HPF [facility] Urine WBC 0-5 0 - 5 /HPF [facility] Urine Squamous Epithelial Cell 0-2 0 - 2 /HPF [facility] Urine Bacteria None Seen None Seen [facility] Hyaline Casts, Urine 0-2 0 - 2 /LPF [facility] 03/02/2024 9:00 AM EST 03/02/2024 9:05 AM EST Narrative [facility] - 03/02/2024 9:31 AM EST Urine, Clean Catch us Generic External Data Provider LAB URINE ORDERAB LES Final Result Performing Organization Address [facility] Co de Phone Number [facility] [address] [place] [phone] * Magnesium (02/24/2024 6:54 AM EST) Magnesium 2.0 1.6 - 2.6 mg/dL [facility] 02/24/2024 6:54 AM EST 02/24/2024 6:58 AM EST Generic External Data Provider LAB BLOOD ORDERAB LES Final Result Performing Organization Address [facility] de Phone Number [facility] [address] [place] [phone] * (ABNORMAL) Hepatic Function Panel (02/24/2024 6:54 AM EST) Bilirubin, Total 0.8 0.0 - 1.0 mg/dL [facility] Bilirubin, Direct 0.3 0.0 - 0.5 mg/dL [facility] Aspartate Amino Transferase 36 5 - 37 U/L [facility] Alanine Aminotransferase 88(H) 0 - 40 U/L [facility] Total Protein 7.3 6.5 - 8.0 g/dL [facility] Albumin Level 3.9 3.5 - 5.0 g/dL [facility] Alkaline Phosphatase 89 39 - 117 U/L [facility] 02/24/2024 6:54 AM EST 02/24/2024 6:58 AM EST us Generic External Data Provider LAB BLOOD ORDERAB LES Final Result Performing Organization Address City/State/[facility] Co de Phone Number [facility] [address] [place] [phone] * (ABNORMAL) Basic Metabolic Panel (02/24/2024 6:54 AM EST) Pathologist [facility] Sodium 136 135 - 145 mmol/L [facility] Potassium 3.9 3.3 - 5.1 mmol/L [facility] Chloride 103 96 - 108 mmol/L [facility] Carbon Dioxide 24 22 - 29 mmol/L [facility] Anion Gap 13 12 - 20 [facility] Urea Nitrogen (BUN) 18(H) 9 - 16 mg/dL [facility] Creatinine, Serum 0.82 0.5 - 1.4 mg/dL [facility] Creatinine Clr Calc Pharmacy 101.8 [facility] Comment:eGFR (calculated fro m the MDRD study equation) and eCrCl(calculated from the Cockcroft-Gault equation) are based ondifferent parameters and may not yield comparable results.If eCrCl result is absurd, please check patient'sheight/weight. Estimated Glomerular Filt Rate >60 [facility] Comment:Chronic Kidney Disea se: Estimated GFR < 60 mL/min/1.14b5Sslfxe Kidney Disease: Estimated GFR < 15 mL/min/1.73m2 Glucose 86 60 - 115 mg/dL [facility] Calcium 9.0 8.4 - 10.2 mg/dL [facility] 02/24/2024 6:54 AM EST 02/24/2024 6:58 AM EST us Generic External Data Provider LAB BLOOD ORDERAB LES Final Result [facility] [address] [place] [phone] * US Abdomen Limited (02/11/2024 5:50 PM EST) Anatomical Region Laterality Modality Abdomen Ultrasound 02/11/2024 5:50 PM EST Narrative 02/11/2024 7:18 PM EST ? [facility] ?[address] ?[place] [address] ? Ultrasound Report ? Signed ? Patient: Morales,Sudhir ?MR#: [id number] ? : 1975 ?Acct:[id number] ? Age/Sex: 48 / M ?ADM Date: 02/10/24 ? Loc: HO.ED ? Attending Dr: ? Ordering Physician: Jesus Campoverde MD ?? Date of Service: 02/11/24 ?? Procedure(s): US abdomen limited ?? Accession Number(s): [id number] ? cc: [facility]; Jesus Campoverde MD ? EXAMINATION: ?? US ABDOMEN LIMITED ? CLINICAL INFORMATION: ?? Elevated liver enzymes. ? COMPARISON: ?? None available. ? TECHNIQUE: ?? Real-time imaging of the right upper quadrant abdominal viscera. ? FINDINGS: ? PANCREAS: Visualized portions are unremarkable. ? LIVER: The liver is normal in size. The liver contour is normal. ?? Parenchymal echogenicity is normal. No focal hepatic lesion. There is ?? no intrahepatic biliary duct dilatation seen. ? GALLBLADDER: The gallbladder is physiologically distended without ?? evidence of stones, sludge, polyps, wall thickening or pericholecystic ?? fluid. ? COMMON BILE DUCT: Normal in caliber measuring 0 point cm in diameter. ? RIGHT KIDNEY: No hydronephrosis. No renal calculi or focal parenchymal ?? lesions. The kidney measures 9.9 cm in maximum dimension. ? FREE FLUID: None. ? US/US abdomen limited ?? IMPRESSION: ?? Unremarkable right upper quadrant ultrasound. ? Electronically signed by: ??Neli Souza MD ??02/11/2024 07:16 PM EST ? Dictated By: ?Neli Souza MD ? Signed By: ?<Electronically signed by Neli Souza MD in OV> ? 02/11/246 ? DD/ 1750 ? TD/TT: 02/11/24 1755 ? Metal Solderer: PN ? Procedure Note Donsaudter, Image - 02/11/2024 [place] [address] Ultrasound Report Signed Patient: Tasha Morales#: [id number] : 1975Acct:[id number] Age/Sex: 48 / MADM Date: 02/10/24 Loc: HO.ED Attending Dr: Ordering Physician: Jesus Campoverde MD Date of Service: 02/11/24 Procedure(s): US abdomen limited Accession Number(s): [id number] cc: [facility]; Jesus Campoverde MD EXAMINATION: US ABDOMEN LIMITED CLINICAL INFORMATION: Elevated liver enzymes. COMPARISON: None available. TECHNIQUE: Real-time imaging of the right upper quadrant abdominal viscera. FINDINGS: PANCREAS: Visualized portions are unremarkable. LIVER: The liver is normal in size. The liver contour is normal. Parenchymal echogenicity is normal. No focal hepatic lesion. There is no intrahepatic biliary duct dilatation seen. GALLBLADDER: The gallbladder is physiologically distended without evidence of stones, sludge, polyps, wall thickening or pericholecystic fluid. COMMON BILE DUCT: Normal in caliber measuring 0 point cm in diameter. RIGHT KIDNEY: No hydronephrosis. No renal calculi or focal parenchymal lesions. The kidney measures 9.9 cm in maximum dimension. FREE FLUID: None. US/US abdomen limited IMPRESSION: Unremarkable right upper quadrant ultrasound. Electronically signed by: Neli Souza MD 02/11/2024 07:16 PM EST RP Dictated By: Neli Souza MD Signed By: <Electronically signed by Neli Souza MD in OV> 02/11/241915 DD/ 49 TD/TT: 02/11/241754 Metal Solderer: [facility] External Provider IMG US PROCEDURES Final Result * HIV Ab/Ag ([facility]) (09/14/2022 11:14 AM EDT) HIV AB/AG Nonreactive Nonreactive [facility] Comment:HIV-1 p24 Ag and/or HIV-1/HIV-2 Ab not detected.A test result that is nonreactive does not exclude thepossibility of exposure to or infection with HIV-1 and/orHIV-2. Nonreactive results in this assay for individualswith prior exposure to HIV-1 and/or HIV-2 may be due toantigen and antibody levels that are below the limit ofdetection of this assay.The [facility] HIV Ag/Ab Combo assay result andsupplemental assay results should be interpreted inconjunction with the patient's clinical presentation,history and other laboratory results. If the results areinconsistent with clinical evidence, additional testing issuggested to confirm the result. 09/14/2022 11:1 4 AM EDT 09/14/2022 2:37 PM EDT Lara Headley MD LAB BLOOD ORDERABLES Fin al Result [facility] [address] [place] [address] [phone] * Lipid Panel, Standard (09/14/2022 11:14 AM EDT) Triglycerides 85 mg/dL [facility] Comment:Desirable Triglyceri de: less than 150 mg/dLBorderline High Triglyceride 150-199 mg/dLHigh Triglyceride: 200-499 mg/dLVery High Triglyceride: greater than or equal to 5OO mg/dL Cholesterol 139 mg/dL [facility] Comment:Desirable Cholestero l: less than 200 mg/dLBorderline High Cholesterol: 200-239 mg/dLHigh Cholesterol: greater than 239 mg/dL LDL Cholesterol Calculated 79 mg/dl [facility] Comment:Desirable LDL: less than 100 mg/dLNear Optimal/Above Optimal LDL: 110- 129 mg/dLBorderline High LDL: 130-159 mg/dLHigh LDL: 160-189 mg/dLVery High LDL: greater than or equal to 190 mg/dL HDL Cholesterol 43 mg/dL [facility] Comment:Desirable HDL: great er than 40 mg/dL Note: This HDL assay may give artificially low results in patients with liver disease. 09/14/2022 11:1 4 AM EDT 09/14/2022 2:37 PM EDT Lara Headley MD LAB BLOOD ORDERABLES Fin al Result [facility] [address], [place] [id number] [phone] from Last 3 Months or Most Recently Relevant to Health Maintenance Insurance [facility] C3 [facility]AL[facility] MEDICAID STAND ADULT Care Teams Pvc Monitor Relationship Specialty Start Date End Date Lara Headley MD [address] [place] [id number] PCP - General Family Medicine 08/31/16
[2024-04-26 15:38] LABS: MANUAL DIFF FLAG NO
[2024-04-26 15:41] LABS: Basophils Percent Auto 0.4 % (0-2); Eosinophils Absolute Auto 0.1 X10*3/uL (0.0-0.4); Eosinophils Percent Auto 1.7 % (0-4); Hematocrit 36.2 % (42.0-52.0); Hemoglobin 11.6 g/dl (14.0-18.0); Imm Gran Abs Auto 0.01 X10*3/uL (0.00-0.03); Imm Gran Pct Auto 0.2 % (0.0-0.4); Lymphocytes Absolute Auto 1.3 X10*3/uL (1.2-4.9); Lymphocytes Percent Auto 27.8 % (20-40); Mean Corpuscular Hemoglobin 26.1 pg (27.0-33.0); Mean Corpuscular Volume 81.3 fL (80.0-98.0); Monocytes Absolute Auto 0.7 X10*3/uL (0.1-1.2); Monocytes Percent Auto 14.3 % (2-11); Neutrophils Absolute Auto 2.6 x10*3/uL (2.0-8.3); Neutrophils Percent Auto 55.6 % (45-73); Platelet Count 295 X10*3/uL (160-400); Red Blood Count 4.45 X10*6/uL (4.60-5.80); Red Cell Distribution Width 15.4 % (11.0-16.0); White Blood Count 4.7 X10*3/uL (4.8-10.8)
[2024-04-26 16:10] LABS: Alanine Aminotransferase 76 U/L (0-40); Albumin Level 4.2 g/dL (3.5-5.0); Anion Gap 13 (12-20); Aspartate Amino Transferase 46 U/L (5-37); Bilirubin Total 0.4 mg/dL (0.0-1.0); Blood Urea Nitrogen 17 mg/dL (9-16); Calcium 9.9 mg/dL (8.4-10.2); Carbon Dioxide 29 mmol/L (22-29); Chloride 98 mmol/L (96-108); Creatinine Clr Calc Pharmacy 102.9; Estimated Glomerular Filt Rate > 60; Ethanol < 10 mg/dL; Glucose Random 101 mg/dL (60-115); Potassium 3.6 mmol/L (3.3-5.1); Sodium 136 mmol/L (135-145); Total Protein 8.3 g/dL (6.5-8.0)
[2024-04-26 16:42] LABS: Alkaline Phosphatase 90 U/L (39-117)
--- NOTE | 2024-04-26 17:04 | PHA.MEDREC ---
Addendum entered by Becka Puri [facility] 04/26/24 17:13: Reviewed by pharmacist Original Note: Pharmacy Consult ? Medication Reconciliation Pharmacy has completed the medication reconciliation. Spoke with patient to confirm. He reports he has not taken his medication for a few days. He said he did not want to take ANY of his psych medications because they make him drowsy. He only wants to take clonidine, omeprazole (tales once daily), and melatonin prn. Meds he was recently prescribed he no longer wants to take (used claims to verify directions): suboxone, clonazepam, mirtazepine, risperidone, and trazodone. He reports he never started taking duloxetine at home, does not recognize the name. He also said he never used nicotine gum. Will notify provider.
[2024-04-26 19:01] VITALS: BP 154/87; PULSE 72; RESP 17; TEMP 36.4; O2SAT 98
--- NOTE | 2024-04-26 19:09 | PC.NURSE ---
this rn assumed care of pt, pt a&ox4, respirations even and unlabored. pt reporting si thoughts at this time, reports he wants to jump into the canal. vss. 1:1 sitter at bedside.
--- NOTE | 2024-04-26 20:11 | PC.NURSE ---
pt sleeping, pt does not want to take medications at this time. will attempt to medicate pt again at different time.
--- NOTE | 2024-04-26 20:46 | PC.NURSE ---
attempted to medicate pt x2, pt does not want to wake up to take medication , provider aware.
--- NOTE | 2024-04-27 | ECG_ITS ---
Test Reason : PSYCH Blood Pressure : */* mmHG Vent. Rate : 64 BPM Atrial Rate : 64 BPM P-R Int : 148 ms QRS Dur : 96 ms QT Int : 386 ms P-R-T Axes : 18 -11 -8 degrees QTcB Int : 398 ms Normal sinus rhythm Moderate voltage criteria for LVH, may be normal variant ( R in aVL , [place] product ) Borderline ECG When compared with ECG of 05-Apr-2024 08:14, No significant change was found Referred By: Generic ED Physician Electronically Signed By: GABY GROVER MD
--- NOTE | 2024-04-27 01:56 | PC.NURSE ---
pt awake at this time and requesting methadone dose, Mike sterling aware, Consult placed for pt.
[2024-04-27 09:41] VITALS: BP 153/101; PULSE 95; RESP 20; TEMP 36.6; O2SAT 99
[2024-04-27] MEDS: cloNIDine HCL 0.1 MG TABLET PO ×2 (09:42→20:56)
[2024-04-27] MEDS: Omeprazole 20 MG CAPSULE.DR PO (09:43)
--- NOTE | 2024-04-27 09:45 | PC.NURSE ---
pt is refusing his suboxone, states that he is using Fentanyl and will put him into withdrawal and wants methadone instead, tigered Dr rhodes about this situation and Nancy from recovery. Nancy and Violeta Polanco came down and evluated the patient and plan is to order Methadone 10mg
[2024-04-27] MEDS: methADONE HCl 20 MG/2 ML ORAL.CONC 10 MG PO ×2 (11:38→15:31)
[2024-04-27 11:45] LABS: Appearance Urine Clear; Color Urine Yellow; Glucose Urine UA Negative (Negative); Leukocyte Esterase Urine Negative (Negative); Nitrite Urine Negative (Negative); PH 7.5 (5.0-9.0); Specific Gravity - Urine 1.015 (1.005-1.025); Urine Blood Negative (Negative); Urine Ketones Negative (Negative); Urine Protein Negative (Neg-Trace)
[2024-04-27 11:55] LABS: Amphetamine Screen Urine Not Detected (Not Detect); Barbiturates, Urine Not Detected (Not Detect); Benzodiazepines Screen Urine Not Detected (Not Detect); Buprenorphine Scr Not Detected (Not Detect); Cannabinoid Screen Urine Not Detected (Not Detect); Cocaine Screen Urine POSITIVE (Not Detect); Fentanyl, urine POSITIVE (Not Detect); Methadone Screen, Urine Not Detected (Not Detect); Opiate Screen Urine POSITIVE (Not Detect); Oxycodone Screen Urine Not Detected (Not Detect); Phencyclidine Screen Urine Not Detected (Not Detect)
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
--- NOTE | 2024-04-27 14:31 | PC.NURSE ---
report given to Caor moore
[2024-04-27 15:04] VITALS: BMI 34.5
--- NOTE | 2024-04-27 18:12 | PC.ADMIT ---
Pt arrived on the unit at 1450. He arrived via wheelchair as a transfer from [facility]. He is here on a CV. Skin check reveled nothing. Pt is here because of SI. He states that he [place] sitting [place] in [place] and thinking about jumping in , so he self presented. Pt lives alone and reports stable housing. He is currently using Fentanyl and Cocaine. He was ordered a total of 3 doses of Methadone 10mg, PRN, to assist with withdrawal. Two have been used so far. Pt is calm, pleasant and cooperative. Poor eye contact. No known allergies. A&Ox4.
[2024-04-27 19:47] VITALS: BP 184/92; PULSE 88; RESP 16; TEMP 36.7; O2SAT 99
[2024-04-27 20:56] VITALS: BP 161/95
[2024-04-27] MEDS: Acetaminophen 325 MG TABLET 650 MG PO (20:56)
[2024-04-27] MEDS: Melatonin 3 MG TABLET 9 MG PO (20:57)
[2024-04-28] MEDS: methADONE HCl 20 MG/2 ML ORAL.CONC 10 MG PO (00:23)
[2024-04-28] MEDS: traZODone HCL 50 MG TABLET PO (01:45)
[2024-04-28 07:45] VITALS: BP 150/87; PULSE 58; RESP 20; TEMP 37; O2SAT 98
[2024-04-28] MEDS: Omeprazole 20 MG CAPSULE.DR PO (08:24)
[2024-04-28] MEDS: cloNIDine HCL 0.1 MG TABLET PO ×3 (08:24→20:58)
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
[2024-04-28 13:00] VITALS: BP 136/79
[2024-04-28] MEDS: Loperamide HCl 2 MG CAPSULE PO (13:03)
[2024-04-28] MEDS: Dicyclomine HCl 10 MG CAPSULE PO (13:03)
[2024-04-28] MEDS: methADONE HCl 20 MG/2 ML ORAL.CONC PO (15:17)
[2024-04-28 19:52] VITALS: BP 144/61; PULSE 65; RESP 16; TEMP 36.6; O2SAT 98
[2024-04-28] MEDS: Melatonin 3 MG TABLET 9 MG PO (20:53)
[2024-04-28 20:58] VITALS: BP 144/61
[2024-04-28] MEDS: Acetaminophen 325 MG TABLET 650 MG PO (21:03)
[2024-04-29] MEDS: methADONE HCl 20 MG/2 ML ORAL.CONC 10 MG PO (07:41)
[2024-04-29 08:00] VITALS: BP 136/78; PULSE 63; RESP 16; TEMP 36.4; O2SAT 100
[2024-04-29] MEDS: cloNIDine HCL 0.1 MG TABLET PO ×3 (08:32→20:51)
[2024-04-29] MEDS: Omeprazole 20 MG CAPSULE.DR PO (08:32)
[2024-04-29 09:05] LABS: Alanine Aminotransferase 47 U/L (0-40); Albumin Level 3.6 g/dL (3.5-5.0); Aspartate Amino Transferase 27 U/L (5-37); Bilirubin Direct < 0.2 mg/dL (0.0-0.5); Bilirubin Total 0.2 mg/dL (0.0-1.0); Total Protein 7.2 g/dL (6.5-8.0)
[2024-04-29 09:14] LABS: Alkaline Phosphatase 107 U/L (39-117)
--- NOTE | 2024-04-29 10:13 | P.PNPSI_ITS ---
Subjective Subjective Date of Service: 04/29/24 Reason For Visit: Depression Interim History: Met with patient; discussed with team Patient friendly, calm and engaged. Says he is feeling back to his regular self. Patient denies any SI or HI or AVH or any paranoid thinking at all and says this has remained true even though he was off his risperidone. He thinks that now the Invega Sustenna shot that he received last admission is actually working. Patient no longer wants Remeron or Risperdal, feeling in good mood and in good self-control. Discussed substance abuse struggles. Patient acknowledges he has not been taking Suboxone regularly; instead he has been using it as needed for withdrawal. Patient however says he wants to get on Suboxone now and be titrated up to 24 mg, which he says he was on in the past. Patient also says that he wants to figure out how to stay sober from fentanyl (and cocaine) without relying on Suboxone. Will need to further clarify. Patient does not want a substance abuse program but instead is trying to pursue getting into a sober living house in [place]. Mental Status Exam Mental Status Exam Narrative: Pt is alert and oriented; behavior is cooperative, friendly and calm; patient is not in distress; dressed in casual attire with adequate hygiene and grooming; mood is described as good and affect congruent; eye contact appropriate; Speech is normal rate, volume and prosody and not pressured; no psychomotor agitation/retardation present; thought process is organized and goal directed; Thought content is on tx; otherwise pertinent to relevant topics and without any delusional content, paranoid ideations or grandiosity; denies any SI/HI. Denies any AVH and there is no evidence of perceptual disturbance. Patients insight and judgment appear intact. Diagnostics Vital Signs (24Hr): Vital Signs - 24 hr 04/28/24 13:00 04/28/24 19:52 04/28/24 20:58 Temperature 97.8 F Pulse Rate 65 Respiratory Rate 16 Blood Pressure 136/79 144/61 H 144/61 H Pulse Oximetry 98 Oxygen Delivery Method Room Air 04/29/24 08:00 Temperature 97.6 F Pulse Rate 63 Respiratory Rate 16 Blood Pressure 136/78 Pulse Oximetry 100 Oxygen Delivery Method Room Air BMI result Body Mass Index 34.5 Labs 04/26/24 15:34 04/26/24 15:34 Labs: Laboratory Results - last 48 hr 04/27/24 04/29/24 11:36 07:36 Total Bilirubin 0.2 Direct Bilirubin < 0.2 AST 27 ALT 47 H Alkaline Phosphatase 107 Total Protein 7.2 Albumin 3.6 Urine Color Yellow Urine Appearance Clear Urine pH 7.5 Ur Specific [place] 1.015 Urine Protein Negative Urine Glucose (UA) Negative Urine Ketones Negative Urine Blood Negative Urine Nitrite Negative Ur Leukocyte Esterase Negative Urine Opiates Screen POSITIVE H Ur Buprenorphine Scrn Not Detected Ur Oxycodone Screen Not Detected Urine Methadone Screen Not Detected Urine Fentanyl Screen POSITIVE H Ur Barbiturates Screen Not Detected Ur Phencyclidine Scrn Not Detected Ur Amphetamines Screen Not Detected U Benzodiazepines Scrn Not Detected Urine Cocaine Screen POSITIVE H U Marijuana (THC) Screen Not Detected Medications Medications Current Medications Acetaminophen (Acetaminophen 325 Mg Tablet) 650 mg PO Q6H PRN PRN Reason: Headache/Pain, Scale 1-10 Last Admin: 04/28/24 21:03 Dose: 650 mg Al Hydroxide/Mg Hydroxide (Magnesium Hydrox/Alum Hydrox 30 Ml Oral.Susp) 30 ml PO Q6H PRN PRN Reason: Heartburn/Nausea Clonidine HCl (Clonidine Hcl 0.1 Mg Tablet) 0.1 mg PO BID SHARIF; Protocol Last Admin: 04/29/24 08:32 Dose: 0.1 mg Clonidine HCl (Clonidine Hcl 0.1 Mg Tablet) 0.1 mg PO Q4H PRN; Protocol PRN Reason: opiod w/drawal symptoms Last Admin: 04/28/24 13:00 Dose: 0.1 mg Cyclobenzaprine HCl (Cyclobenzaprine Hcl 10 Mg Tablet) 10 mg PO TID PRN PRN Reason: muscle cramps Dicyclomine HCl (Dicyclomine Hcl 10 Mg Capsule) 10 mg PO Q6H PRN PRN Reason: stomach cramps Last Admin: 04/28/24 13:03 Dose: 10 mg Hydroxyzine HCl (Hydroxyzine Hcl 25 Mg Tablet) 25 mg PO Q6H PRN PRN Reason: mild anxiety Loperamide HCl (Loperamide Hcl 2 Mg Capsule) 2 mg PO Q6H PRN PRN Reason: Loose Stool Last Admin: 04/28/24 13:03 Dose: 2 mg Magnesium Hydroxide (Milk Of Magnesia 30 Ml Oral.Susp) 30 ml PO DAILY PRN PRN Reason: Constipation Melatonin (Melatonin 3 Mg Tablet) 9 mg PO BEDTIME PRN PRN Reason: insomnia Last Admin: 04/28/24 20:53 Dose: 9 mg Methadone HCl (Methadone Hcl 20 Mg/2 Ml Oral.Conc) 10 mg PO DAILY@0800 REPLACED BY [facility] Last Admin: 04/29/24 07:41 Dose: 10 mg Mirtazapine (Mirtazapine 15 Mg Tablet) 15 mg PO BEDTIME REPLACED BY [facility] Last Admin: 04/28/24 20:55 Dose: Not Given Multi-Ingred Cream/Lotion/Oil/Oint (Mineral Oil/Petrolatum,White 106 Gm Tube) 1 appl TOPICAL BID PRN; Protocol PRN Reason: b/l dry feet Nicotine (Nicotine 21 Mg Patch.Td24) 21 mg TRANSDERMA DAILY PRN PRN Reason: smoking cessation Omeprazole (Omeprazole 20 Mg Capsule.Dr) 20 mg PO DAILY REPLACED BY [facility] Last Admin: 04/29/24 08:32 Dose: 20 mg Risperidone (Risperidone 3 Mg Tablet) 3 mg PO BEDTIME REPLACED BY [facility] Last Admin: 04/28/24 20:55 Dose: Not Given Trazodone HCl (Trazodone Hcl 50 Mg Tablet) 50 mg PO BEDTIME PRN PRN Reason: Insomnia Trazodone HCl (Trazodone Hcl 50 Mg Tablet) 50 mg PO BEDTIME MRX1 PRN PRN Reason: Insomnia Last Admin: 04/28/24 01:45 Dose: 50 mg Allergies Allergies Allergy/AdvReac Type Severity Reaction Status Date / Time No Known Allergies Allergy Verified 04/26/24 14:45 [No Known Allergies*] Assessment & Plan Assessment & Plan (1) Opioid use disorder: Status: Acute Code(s): F11.90 - Opioid use, unspecified, uncomplicated Assessment and Plan: * methadone 10mg q3H PRN max 3 doses * awaiting psychiatric admission Plan Patient is a 48-year-old male with history of schizoaffective disorder, PTSD, cocaine/opiate use disorder, hx of NSTEMI s/p cocaine use, past gang affiliation, incarceration, recently discharged from 1 week ago who now self presents with suicidal ideation to jump into the river in the face of being off medication and relapse on IV opiate/cocaine. Patient is a little guarded on approach says he does not want to talk. He wants to use methadone for withdrawal symptoms but does not want to get on methadone for treatment; currently denies any SI or HI or AVH. Says he wants to get back on medications. Patient signed a 3 day notice saying he needs to get out of here to attend to errands Formulation/clinical reasoning: Patient has schizoaffective disorder as well as PTSD and ongoing substance abuse struggles. Long history of chaotic life and incarceration at seems that patient is having significant trouble adjusting to life and pursuing sobriety without external structures in place (graduated from [facility] with 13 months of sobriety but relapsed after he left). This admission makes 6 recent inpatient admissions in the past 3 months (04/28/23, 04/17/24, 03/27/24, 02/27/24, 02/17/24, 01/17/24) with similar pattern of patient discharging, relapsing, going off his meds, getting suicidal and self presenting, only to quickly ask for discharge and repeat the cycle. -suspicion that patient is diverting Suboxone; does not want to go on methadone for maintenance. Will restart home medications, risperidone; patient usually returns to baseline soon Hospital course: 04/29 Patient friendly, calm and engaged. Says he is feeling back to his regular self. Patient denies any SI or HI or AVH or any paranoid thinking at all and says this has remained true even though he was off his risperidone. He thinks that now the Invega Sustenna shot that he received last admission is actually working. Patient no longer wants Remeron or Risperdal, feeling in good mood and in good self-control. -patient retracted 3 day notice wanting to stay for further treatment Discussed substance abuse struggles. Patient acknowledges he has not been taking Suboxone regularly; instead he has been using it as needed for withdrawal. Patient however says he wants to get on Suboxone now and be titrated up to 24 mg, which he says he was on in the past. Patient also says that he wants to figure out how to stay sober from fentanyl (and cocaine) without relying on Suboxone. Will need to further clarify. Patient does not want a substance abuse program but instead is trying to pursue getting into a sober living house in [place]. PLAN: CV; q15min checks Discontinue Risperdal (patient seems to be stable on Invega Sustenna which he received last admission) Discontinue Remeron; patient does not want Continue Invega Sustenna 234 mg Q 28 days (due 05/08/24) Clonidine 0.1 mg b.i.d. Mirtazapine 15 mg q.h.s. Methadone 20 mg tomorrow and then 10 mg following; Patient educated on: diagnosis, medication risk/benefits, substance abuse and therapeutic strategies Informed Consent: understands and further education needed Reason for continued inpatient stay Substantial Risk for: rapid decompensation Time Spent With Patient Time: Total time managing care of this patient today ____ minutes.
[2024-04-29] MEDS: Acetaminophen 325 MG TABLET 650 MG PO (18:42)
[2024-04-29 19:01] VITALS: BP 151/72
[2024-04-29 19:52] VITALS: BP 151/72; PULSE 69; RESP 16; TEMP 36.4; O2SAT 98
[2024-04-29] MEDS: Melatonin 3 MG TABLET 9 MG PO (20:51)
[2024-04-30] MEDS: traZODone HCL 50 MG TABLET PO (01:42)
[2024-04-30] MEDS: Magnesium Hydrox/Alum Hydrox 30 ML ORAL.SUSP PO (04:04)
[2024-04-30 07:00] VITALS: BMI 35.9
[2024-04-30] MEDS: methADONE HCl 20 MG/2 ML ORAL.CONC 10 MG PO (07:46)
[2024-04-30 08:00] VITALS: BP 175/101; PULSE 78; RESP 18; TEMP 36.4; O2SAT 100
[2024-04-30] MEDS: cloNIDine HCL 0.1 MG TABLET PO ×4 (08:16→21:33)
[2024-04-30] MEDS: Omeprazole 20 MG CAPSULE.DR PO (08:16)
--- NOTE | 2024-04-30 08:36 | P.PNPSI_ITS ---
Subjective Subjective Date of Service: 04/30/24 Reason For Visit: Depression Interim History: Met with patient; discussed with team Patient remains with better, anxiety minimal and AVH delusional thinking; however he is not feeling physically. Patient reports epigastric abdominal discomfort and reports he has not a bowel movement in over a week. He agrees to laxatives. Mental Status Exam Mental Status Exam Narrative: Pt is alert and oriented; behavior is cooperative and calm; patient is not in distress; dressed in casual attire with adequate hygiene and grooming; mood is described as ok and affect congruent; eye contact appropriate; Speech is normal rate, volume and prosody and not pressured; some psychomotor retardation present; thought process is organized and goal directed; Thought content is on tx; otherwise pertinent to relevant topics and without any delusional content, paranoid ideations or grandiosity; denies any SI/HI. Denies any AVH and there is no evidence of perceptual disturbance. Patients insight and judgment appear intact. Diagnostics Vital Signs (24Hr): Vital Signs - 24 hr 04/29/24 19:01 04/29/24 19:52 04/30/24 08:00 Temperature 97.6 F 97.5 F Pulse Rate 69 78 Respiratory Rate 16 18 Blood Pressure 151/72 H 151/72 H 175/101 H Pulse Oximetry 98 100 Oxygen Delivery Method Room Air Room Air BMI result Body Mass Index 34.5 Labs 04/26/24 15:34 04/26/24 15:34 Labs: Laboratory Results - last 48 hr 04/29/24 07:36 Total Bilirubin 0.2 Direct Bilirubin < 0.2 AST 27 ALT 47 H Alkaline Phosphatase 107 Total Protein 7.2 Albumin 3.6 Medications Medications Current Medications Acetaminophen (Acetaminophen 325 Mg Tablet) 650 mg PO Q6H PRN PRN Reason: Headache/Pain, Scale 1-10 Last Admin: 04/29/24 18:42 Dose: 650 mg Al Hydroxide/Mg Hydroxide (Magnesium Hydrox/Alum Hydrox 30 Ml Oral.Susp) 30 ml PO Q6H PRN PRN Reason: Heartburn/Nausea Last Admin: 04/30/24 04:04 Dose: 30 ml Clonidine HCl (Clonidine Hcl 0.1 Mg Tablet) 0.1 mg PO BID SHARIF; Protocol Last Admin: 04/30/24 08:16 Dose: 0.1 mg Clonidine HCl (Clonidine Hcl 0.1 Mg Tablet) 0.1 mg PO Q4H PRN; Protocol PRN Reason: opiod w/drawal symptoms Last Admin: 04/29/24 19:01 Dose: 0.1 mg Cyclobenzaprine HCl (Cyclobenzaprine Hcl 10 Mg Tablet) 10 mg PO TID PRN PRN Reason: muscle cramps Dicyclomine HCl (Dicyclomine Hcl 10 Mg Capsule) 10 mg PO Q6H PRN PRN Reason: stomach cramps Last Admin: 04/28/24 13:03 Dose: 10 mg Hydroxyzine HCl (Hydroxyzine Hcl 25 Mg Tablet) 25 mg PO Q6H PRN PRN Reason: mild anxiety Loperamide HCl (Loperamide Hcl 2 Mg Capsule) 2 mg PO Q6H PRN PRN Reason: Loose Stool Last Admin: 04/28/24 13:03 Dose: 2 mg Magnesium Hydroxide (Milk Of Magnesia 30 Ml Oral.Susp) 30 ml PO DAILY PRN PRN Reason: Constipation Melatonin (Melatonin 3 Mg Tablet) 9 mg PO BEDTIME PRN PRN Reason: insomnia Last Admin: 04/29/24 20:51 Dose: 9 mg Methadone HCl (Methadone Hcl 20 Mg/2 Ml Oral.Conc) 10 mg PO DAILY@0800 [facility] Last Admin: 04/30/24 07:46 Dose: 10 mg Multi-Ingred Cream/Lotion/Oil/Oint (Mineral Oil/Petrolatum,White 106 Gm Tube) 1 appl TOPICAL BID PRN; Protocol PRN Reason: dry skin Nicotine (Nicotine 21 Mg Patch.Td24) 21 mg TRANSDERMA DAILY PRN PRN Reason: smoking cessation Omeprazole (Omeprazole 20 Mg Capsule.Dr) 20 mg PO DAILY [facility] Last Admin: 04/30/24 08:16 Dose: 20 mg Paliperidone Palmitate (Paliperidone Palmitate 234 Mg/1.5 Ml Syringe) 234 mg IM Q30D [facility] Trazodone HCl (Trazodone Hcl 50 Mg Tablet) 50 mg PO BEDTIME MRX1 PRN PRN Reason: Insomnia Last Admin: 04/30/24 01:42 Dose: 50 mg Allergies Allergies Allergy/AdvReac Type Severity Reaction Status Date / Time No Known Allergies Allergy Verified 04/26/24 14:45 [No Known Allergies*] Assessment & Plan Assessment & Plan (1) Schizoaffective disorder, depressive type: Status: Acute Code(s): F25.1 - Schizoaffective disorder, depressive type (2) PTSD (post-traumatic stress disorder): Status: Acute Code(s): F43.10 - Post-traumatic stress disorder, unspecified (3) Cocaine use disorder: Status: Acute Code(s): F14.10 - Cocaine abuse, uncomplicated (4) Opioid use disorder: Status: Acute Code(s): F11.90 - Opioid use, unspecified, uncomplicated Assessment and Plan: * methadone 10mg q3H PRN max 3 doses * awaiting psychiatric admission Plan Patient is a 48-year-old male with history of schizoaffective disorder, PTSD, cocaine/opiate use disorder, hx of NSTEMI s/p cocaine use, past gang affiliation, incarceration, recently discharged from 1 week ago who now self presents with suicidal ideation to jump into the river in the face of being off medication and relapse on IV opiate/cocaine. Patient is a little guarded on approach says he does not want to talk. He wants to use methadone for withdrawal symptoms but does not want to get on methadone for treatment; currently denies any SI or HI or AVH. Says he wants to get back on medications. Patient signed a 3 day notice saying he needs to get out of here to attend to errands Formulation/clinical reasoning: Patient has schizoaffective disorder as well as PTSD and ongoing substance abuse struggles. Long history of chaotic life and incarceration at seems that patient is having significant trouble adjusting to life and pursuing sobriety without external structures in place (graduated from [facility] with 13 months of sobriety but relapsed after he left). This admission makes 6 recent inpatient admissions in the past 3 months (04/28/23, 04/17/24, 03/27/24, 02/27/24, 02/17/24, 01/17/24) with similar pattern of patient discharging, relapsing, going off his meds, getting suicidal and self presenting, only to quickly ask for discharge and repeat the cycle. -suspicion that patient is diverting Suboxone; does not want to go on methadone for maintenance. Will restart home medications, risperidone; patient usually returns to baseline soon Hospital course: 04/29 Patient friendly, calm and engaged. Says he is feeling back to his regular self. Patient denies any SI or HI or AVH or any paranoid thinking at all and says this has remained true even though he was off his risperidone. He thinks that now the Invega Sustenna shot that he received last admission is actually working. Patient no longer wants Remeron or Risperdal, feeling in good mood and in good self-control. -patient retracted 3 day notice wanting to stay for further treatment Discussed substance abuse struggles. Patient acknowledges he has not been taking Suboxone regularly; instead he has been using it as needed for withdrawal. Patient however says he wants to get on Suboxone now and be titrated up to 24 mg, which he says he was on in the past. Patient also says that he wants to figure out how to stay sober from fentanyl (and cocaine) without relying on Suboxone. Will need to further clarify. Patient does not want a substance abuse program but instead is trying to pursue getting into a sober living house in [place]. 04/30 Patient remains with better, anxiety minimal and AVH delusional thinking; however he is not feeling physically. Patient reports epigastric abdominal discomfort and reports he has not a bowel movement in over a week. He agrees to laxatives. discussed hypertension: considered options/risks/side-effects; patient has history of [place] (secondary to cocaine abuse) so considering metoprolol over amlodipine PLAN: CV; q15min checks Discontinue Risperdal (patient seems to be stable on Invega Sustenna which he received last admission) Discontinue Remeron; patient does not want Continue Invega Sustenna 234 mg Q 28 days (due 05/08/24) Clonidine 0.1 mg b.i.d. Mirtazapine 15 mg q.h.s. Methadone 20 mg tomorrow and then 10 mg following; Patient educated on: diagnosis, medication risk/benefits and medical condition Informed Consent: understands Reason for continued inpatient stay Substantial Risk for: rapid decompensation Time Spent With Patient Time: Total time managing care of this patient today ____ minutes.
[2024-04-30 08:58] VITALS: BP 160/90; PULSE 84; RESP 16
[2024-04-30 09:32] LABS: Influenza A PCR NEGATIVE (Negative); Influenza B PCR NEGATIVE (Negative); Resp Syncy Virus RNA Qual PCR NEGATIVE (Negative); SARS COV2 PCR INHOUSE NEGATIVE (Negative)
[2024-04-30 11:15] VITALS: BP 146/93
[2024-04-30] MEDS: polyethylene glycoL 3350 17 GM POWD.PACK PO (13:30)
[2024-04-30] MEDS: Dicyclomine HCl 10 MG CAPSULE PO (13:30)
[2024-04-30 17:36] VITALS: BP 145/85; PULSE 97
[2024-04-30 20:00] VITALS: BP 138/62; PULSE 82; RESP 16; TEMP 36.9; O2SAT 98
[2024-04-30 21:33] VITALS: BP 138/62
[2024-05-01] MEDS: methADONE HCl 20 MG/2 ML ORAL.CONC 10 MG PO (08:12)
[2024-05-01 08:40] VITALS: BP 112/66
[2024-05-01] MEDS: cloNIDine HCL 0.1 MG TABLET PO ×2 (08:40→21:15)
[2024-05-01] MEDS: Omeprazole 20 MG CAPSULE.DR PO (08:40)
[2024-05-01 08:46] VITALS: BP 112/64; PULSE 85; RESP 16; TEMP 36.4; O2SAT 95
[2024-05-01] MEDS: Mineral Oil/Petrolatum,White 106 GM Tube 1 APPL TOPICAL ×2 (09:23→21:12)
--- NOTE | 2024-05-01 09:50 | HO.PSYCHPN ---
Subjective Subjective Date of Service: 05/01/24 Reason For Visit: Depression Interim History: Met with patient; discussed with team Patient reports he is feeling much better in good. Said he a good bowel movement and vomited 1 time and since then he has felt back to his regular self. Patient wants to get on Suboxone and insurance underwriter sales agreed to start. Patient denies any SI or HI or AVH Mental Status Exam Mental Status Exam Narrative: Pt is alert and oriented; behavior is cooperative, friendly and calm; patient is not in distress; dressed in casual attire with good hygiene and grooming; mood is described as good and affect congruent, bright, calm; eye contact appropriate; Speech is normal rate, volume and prosody and not pressured; no psychomotor agitation/retardation present; thought process is organized and goal directed; Thought content is on tx; otherwise pertinent to relevant topics and without any delusional content, paranoid ideations or grandiosity; denies any SI/HI. There is no evidence of perceptual disturbance. Patients insight and judgment appear intact. Diagnostics Vital Signs (24Hr): Vital Signs - 24 hr 04/30/24 11:15 04/30/24 17:36 04/30/24 20:00 Temperature 98.4 F Pulse Rate 97 82 Respiratory Rate 16 Blood Pressure 146/93 H 145/85 H 138/62 Pulse Oximetry 98 Oxygen Delivery Method Room Air 04/30/24 21:33 05/01/24 08:40 Temperature Pulse Rate Respiratory Rate Blood Pressure 138/62 112/66 Pulse Oximetry Oxygen Delivery Method BMI result Body Mass Index 35.9 Labs 04/26/24 15:34 04/26/24 15:34 Labs: Laboratory Results - last 48 hr 04/30/24 08:40 Influenza Type A (PCR) NEGATIVE Influenza Type B (PCR) NEGATIVE RSV RNA Qual (PCR) NEGATIVE SARS-CoV-2 RNA (RT-PCR) NEGATIVE Medications Medications Current Medications Acetaminophen (Acetaminophen 325 Mg Tablet) 650 mg PO Q6H PRN PRN Reason: Headache/Pain, Scale 1-10 Last Admin: 04/29/24 18:42 Dose: 650 mg Al Hydroxide/Mg Hydroxide (Magnesium Hydrox/Alum Hydrox 30 Ml Oral.Susp) 30 ml PO Q6H PRN PRN Reason: Heartburn/Nausea Last Admin: 04/30/24 04:04 Dose: 30 ml Clonidine HCl (Clonidine Hcl 0.1 Mg Tablet) 0.1 mg PO BID SHARIF; Protocol Last Admin: 05/01/24 08:40 Dose: 0.1 mg Clonidine HCl (Clonidine Hcl 0.1 Mg Tablet) 0.1 mg PO Q4H PRN; Protocol PRN Reason: opiod w/drawal symptoms Last Admin: 04/30/24 17:36 Dose: 0.1 mg Cyclobenzaprine HCl (Cyclobenzaprine Hcl 10 Mg Tablet) 10 mg PO TID PRN PRN Reason: muscle cramps Hydroxyzine HCl (Hydroxyzine Hcl 25 Mg Tablet) 25 mg PO Q6H PRN PRN Reason: mild anxiety Magnesium Hydroxide (Milk Of Magnesia 30 Ml Oral.Susp) 30 ml PO DAILY PRN PRN Reason: Constipation Melatonin (Melatonin 3 Mg Tablet) 9 mg PO BEDTIME PRN PRN Reason: insomnia Last Admin: 04/29/24 20:51 Dose: 9 mg Methadone HCl (Methadone Hcl 20 Mg/2 Ml Oral.Conc) 10 mg PO DAILY@0800 [facility] Last Admin: 05/01/24 08:12 Dose: 10 mg Multi-Ingred Cream/Lotion/Oil/Oint (Mineral Oil/Petrolatum,White 106 Gm Tube) 1 appl TOPICAL BID PRN; Protocol PRN Reason: dry skin Last Admin: 05/01/24 09:23 Dose: 1 appl Nicotine (Nicotine 21 Mg Patch.Td24) 21 mg TRANSDERMA DAILY PRN PRN Reason: smoking cessation Omeprazole (Omeprazole 20 Mg Capsule.Dr) 20 mg PO DAILY [facility] Last Admin: 05/01/24 08:40 Dose: 20 mg Paliperidone Palmitate (Paliperidone Palmitate 234 Mg/1.5 Ml Syringe) 234 mg IM Q30D [facility] Polyethylene Glycol (Polyethylene Glycol 3350 17 Gm Powd.Pack) 17 gm PO DAILY [facility] Trazodone HCl (Trazodone Hcl 50 Mg Tablet) 50 mg PO BEDTIME MRX1 PRN PRN Reason: Insomnia Last Admin: 04/30/24 01:42 Dose: 50 mg Allergies Allergies Allergy/AdvReac Type Severity Reaction Status Date / Time No Known Allergies Allergy Verified 04/26/24 14:45 [No Known Allergies*] Assessment & Plan Assessment & Plan (1) Schizoaffective disorder, depressive type: Status: Acute Code(s): F25.1 - Schizoaffective disorder, depressive type (2) PTSD (post-traumatic stress disorder): Status: Acute Code(s): F43.10 - Post-traumatic stress disorder, unspecified (3) Cocaine use disorder: Status: Acute Code(s): F14.10 - Cocaine abuse, uncomplicated (4) Opioid use disorder: Status: Acute Code(s): F11.90 - Opioid use, unspecified, uncomplicated Assessment and Plan: methadone 10mg q3H PRN max 3 doses awaiting psychiatric admission Plan Patient is a 48-year-old male with history of schizoaffective disorder, PTSD, cocaine/opiate use disorder, hx of NSTEMI s/p cocaine use, past gang affiliation, incarceration, recently discharged from 1 week ago who now self presents with suicidal ideation to jump into the river in the face of being off medication and relapse on IV opiate/cocaine. Patient is a little guarded on approach says he does not want to talk. He wants to use methadone for withdrawal symptoms but does not want to get on methadone for treatment; currently denies any SI or HI or AVH. Says he wants to get back on medications. Patient signed a 3 day notice saying he needs to get out of here to attend to errands Formulation/clinical reasoning: Patient has schizoaffective disorder as well as PTSD and ongoing substance abuse struggles. Long history of chaotic life and incarceration at seems that patient is having significant trouble adjusting to life and pursuing sobriety without external structures in place (graduated from [facility] with 13 months of sobriety but relapsed after he left). This admission makes 6 recent inpatient admissions in the past 3 months (04/28/23, 04/17/24, 03/27/24, 02/27/24, 02/17/24, 01/17/24) with similar pattern of patient discharging, relapsing, going off his meds, getting suicidal and self presenting, only to quickly ask for discharge and repeat the cycle. -suspicion that patient is diverting Suboxone; does not want to go on methadone for maintenance. Will restart home medications, risperidone; patient usually returns to baseline soon Hospital course: 04/29 Patient friendly, calm and engaged. Says he is feeling back to his regular self. Patient denies any SI or HI or AVH or any paranoid thinking at all and says this has remained true even though he was off his risperidone. He thinks that now the Invega Sustenna shot that he received last admission is actually working. Patient no longer wants Remeron or Risperdal, feeling in good mood and in good self-control. -patient retracted 3 day notice wanting to stay for further treatment Discussed substance abuse struggles. Patient acknowledges he has not been taking Suboxone regularly; instead he has been using it as needed for withdrawal. Patient however says he wants to get on Suboxone now and be titrated up to 24 mg, which he says he was on in the past. Patient also says that he wants to figure out how to stay sober from fentanyl (and cocaine) without relying on Suboxone. Will need to further clarify. Patient does not want a substance abuse program but instead is trying to pursue getting into a sober living house in [place]. 04/30 Patient remains with better, anxiety minimal and AVH delusional thinking; however he is not feeling physically. Patient reports epigastric abdominal discomfort and reports he has not a bowel movement in over a week. He agrees to laxatives. discussed hypertension: considered options/risks/side-effects; patient has history of MS (secondary to cocaine abuse) so considering metoprolol over amlodipine 05/01 Patient reports he is feeling much better in good. Said he a good bowel movement and vomited 1 time and since then he has felt back to his regular self. Patient wants to get on Suboxone and insurance underwriter sales agreed to start. Patient denies any SI or HI or AVH -blood pressure stable; well hold off on antihypertensive at this time Patient does any further help with substance abuse other than getting Suboxone. Does not want help with programming said he will follow up on his home with outpatient Suboxone provider PLAN: CV; q15min checks Start Suboxone and titrate day mg daily Discontinue Risperdal (patient seems to be stable on Invega Sustenna which he received last admission) Discontinue Remeron; patient does not want Continue Invega Sustenna 234 mg Q 28 days (due 05/08/24) Clonidine 0.1 mg b.i.d. Mirtazapine 15 mg q.h.s. Methadone 20 mg tomorrow and then 10 mg following; Patient educated on: diagnosis, medication risk/benefits, substance abuse and medical condition Informed Consent: understands Reason for continued inpatient stay Substantial Risk for: stable for discharge Time Spent With Patient Time: Total time managing care of this patient today ____ minutes.
--- NOTE | 2024-05-01 18:10 | PC.NURSE ---
SUBOXONE: pt refused. I'll go into precipitated withdrawal .
[2024-05-01 20:00] VITALS: BP 140/75; O2SAT 100
[2024-05-01] MEDS: Acetaminophen 325 MG TABLET 650 MG PO (21:14)
[2024-05-01] MEDS: Melatonin 3 MG TABLET 9 MG PO (21:15)
[2024-05-01] MEDS: traZODone HCL 50 MG TABLET PO (23:16)
[2024-05-02] MEDS: traZODone HCL 50 MG TABLET PO ×2 (01:29→22:31)
[2024-05-02 01:49] VITALS: BP 146/85
[2024-05-02] MEDS: cloNIDine HCL 0.1 MG TABLET PO ×5 (01:49→21:02)
[2024-05-02 08:00] VITALS: BP 129/77; PULSE 73; TEMP 36.4; O2SAT 98
[2024-05-02] MEDS: Omeprazole 20 MG CAPSULE.DR PO (08:31)
[2024-05-02] MEDS: Acetaminophen 325 MG TABLET 650 MG PO (08:48)
--- NOTE | 2024-05-02 10:19 | P.PNPSI_ITS ---
Subjective Subjective Date of Service: 05/02/24 Reason For Visit: Depression Subjective Notes: Conditional Voluntary Interim History: patient was seen and discussed in rounds today. He has been stable and is doing okay with his withdrawal protocol. He is requesting for the clonidine to be for anxiety and withdrawal. We discussed option of antidepressants but he is not interested at this time. No other changes were made today no SI. Review of Systems Review of Systems Yes all other systems are reviewed and are negative Mental Status Exam Mental Status Exam Narrative: In today's visit he is drowsy post clonidine use. Speech is soft-spoken. Minimal eye contact. Affect is subdued. No signs of psychosis. No gross cognitive deficits other than slow thought processes secondary to drowsiness. No SI. Judgment is intact. Diagnostics Vital Signs (24Hr): Vital Signs - 24 hr 05/01/24 20:00 05/02/24 01:49 05/02/24 08:00 Temperature 97.6 F Pulse Rate 73 Blood Pressure 140/75 H 146/85 H 129/77 Pulse Oximetry 100 98 Oxygen Delivery Method Room Air Room Air BMI result Body Mass Index 35.9 Labs 04/26/24 15:34 04/26/24 15:34 Medications Medications Current Medications Acetaminophen (Acetaminophen 325 Mg Tablet) 650 mg PO Q6H PRN PRN Reason: Headache/Pain, Scale 1-10 Last Admin: 05/02/24 08:48 Dose: 650 mg Al Hydroxide/Mg Hydroxide (Magnesium Hydrox/Alum Hydrox 30 Ml Oral.Susp) 30 ml PO Q6H PRN PRN Reason: Heartburn/Nausea Last Admin: 04/30/24 04:04 Dose: 30 ml Buprenorphine/Naloxone (Buprenorphine/Naloxone 8/2 Mg Tab.Subl) 1 tab SUBLINGUAL DAILY SHARIF Last Admin: 05/02/24 08:33 Dose: Not Given Clonidine HCl (Clonidine Hcl 0.1 Mg Tablet) 0.1 mg PO BID SHARIF; Protocol Last Admin: 05/02/24 08:31 Dose: 0.1 mg Clonidine HCl (Clonidine Hcl 0.1 Mg Tablet) 0.1 mg PO Q4H PRN; Protocol PRN Reason: opiod w/drawal symptoms Last Admin: 05/02/24 01:49 Dose: 0.1 mg Cyclobenzaprine HCl (Cyclobenzaprine Hcl 10 Mg Tablet) 10 mg PO TID PRN PRN Reason: muscle cramps Hydroxyzine HCl (Hydroxyzine Hcl 25 Mg Tablet) 25 mg PO Q6H PRN PRN Reason: mild anxiety Magnesium Hydroxide (Milk Of Magnesia 30 Ml Oral.Susp) 30 ml PO DAILY PRN PRN Reason: Constipation Melatonin (Melatonin 3 Mg Tablet) 9 mg PO BEDTIME PRN PRN Reason: insomnia Last Admin: 05/01/24 21:15 Dose: 9 mg Methadone HCl (Methadone Hcl 20 Mg/2 Ml Oral.Conc) 5 mg PO DAILY@0800 [facility] Stop: 05/03/24 11:00 Last Admin: 05/02/24 07:52 Dose: Not Given Multi-Ingred Cream/Lotion/Oil/Oint (Mineral Oil/Petrolatum,White 106 Gm Tube) 1 appl TOPICAL BID PRN; Protocol PRN Reason: dry skin Last Admin: 05/01/24 21:12 Dose: 1 appl Nicotine (Nicotine 21 Mg Patch.Td24) 21 mg TRANSDERMA DAILY PRN PRN Reason: smoking cessation Omeprazole (Omeprazole 20 Mg Capsule.Dr) 20 mg PO DAILY [facility] Last Admin: 05/02/24 08:31 Dose: 20 mg Paliperidone Palmitate (Paliperidone Palmitate 234 Mg/1.5 Ml Syringe) 234 mg IM Q30D [facility] Polyethylene Glycol (Polyethylene Glycol 3350 17 Gm Powd.Pack) 17 gm PO DAILY [facility] Last Admin: 05/02/24 08:33 Dose: Not Given Trazodone HCl (Trazodone Hcl 50 Mg Tablet) 50 mg PO BEDTIME MRX1 PRN PRN Reason: Insomnia Last Admin: 05/02/24 01:29 Dose: 50 mg Allergies Allergies Allergy/AdvReac Type Severity Reaction Status Date / Time No Known Allergies Allergy Verified 04/26/24 14:45 [No Known Allergies*] Assessment & Plan Assessment & Plan (1) Schizoaffective disorder, depressive type: Status: Acute Code(s): F25.1 - Schizoaffective disorder, depressive type (2) PTSD (post-traumatic stress disorder): Status: Acute Code(s): F43.10 - Post-traumatic stress disorder, unspecified (3) Cocaine use disorder: Status: Acute Code(s): F14.10 - Cocaine abuse, uncomplicated (4) Opioid use disorder: Status: Acute Code(s): F11.90 - Opioid use, unspecified, uncomplicated Assessment and Plan: * methadone 10mg q3H PRN max 3 doses * awaiting psychiatric admission Plan Patient is a 48-year-old male with history of schizoaffective disorder, PTSD, cocaine/opiate use disorder, hx of NSTEMI s/p cocaine use, past gang affiliation, incarceration, recently discharged from 1 week ago who now self presents with suicidal ideation to jump into the river in the face of being off medication and relapse on IV opiate/cocaine. Patient is a little guarded on approach says he does not want to talk. He wants to use methadone for withdrawal symptoms but does not want to get on methadone for treatment; currently denies any SI or HI or AVH. Says he wants to get back on medications. Patient signed a 3 day notice saying he needs to get out of here to attend to errands Formulation/clinical reasoning: Patient has schizoaffective disorder as well as PTSD and ongoing substance abuse struggles. Long history of chaotic life and incarceration at seems that patient is having significant trouble adjusting to life and pursuing sobriety without external structures in place (graduated from [facility] with 13 months of sobriety but relapsed after he left). This admission makes 6 recent inpatient admissions in the past 3 months (04/28/23, 04/17/24, 03/27/24, 02/27/24, 02/17/24, 01/17/24) with similar pattern of patient discharging, relapsing, going off his meds, getting suicidal and self presenting, only to quickly ask for discharge and repeat the cycle. -suspicion that patient is diverting Suboxone; does not want to go on methadone for maintenance. Will restart home medications, risperidone; patient usually returns to baseline soon Hospital course: 04/29 Patient friendly, calm and engaged. Says he is feeling back to his regular self. Patient denies any SI or HI or AVH or any paranoid thinking at all and says this has remained true even though he was off his risperidone. He thinks that now the Invega Sustenna shot that he received last admission is actually working. Patient no longer wants Remeron or Risperdal, feeling in good mood and in good self-control. -patient retracted 3 day notice wanting to stay for further treatment Discussed substance abuse struggles. Patient acknowledges he has not been taking Suboxone regularly; instead he has been using it as needed for withdrawal. Patient however says he wants to get on Suboxone now and be titrated up to 24 mg, which he says he was on in the past. Patient also says that he wants to figure out how to stay sober from fentanyl (and cocaine) without relying on Suboxone. Will need to further clarify. Patient does not want a substance abuse program but instead is trying to pursue getting into a sober living house in [place]. 04/30 Patient remains with better, anxiety minimal and AVH delusional thinking; however he is not feeling physically. Patient reports epigastric abdominal discomfort and reports he has not a bowel movement in over a week. He agrees to laxatives. discussed hypertension: considered options/risks/side-effects; patient has history of NE (secondary to cocaine abuse) so considering metoprolol over amlodipine 05/01 Patient reports he is feeling much better in good. Said he a good bowel movement and vomited 1 time and since then he has felt back to his regular self. Patient wants to get on Suboxone and ghost writer agreed to start. Patient denies any SI or HI or AVH -blood pressure stable; well hold off on antihypertensive at this time Patient does any further help with substance abuse other than getting Suboxone. Does not want help with programming said he will follow up on his home with outpatient Suboxone provider PLAN: CV; q15min checks Start Suboxone and titrate day mg daily Discontinue Risperdal (patient seems to be stable on Invega Sustenna which he received last admission) Discontinue Remeron; patient does not want Continue Invega Sustenna 234 mg Q 28 days (due 05/08/24) Clonidine 0.1 mg b.i.d. Mirtazapine 15 mg q.h.s. Methadone 20 mg tomorrow and then 10 mg following; 05/02/24: Continue current plans and regimen Patient educated on: medication risk/benefits Reason for continued inpatient stay Substantial Risk for: med/psych decompensation Time Spent With Patient Time: Total time managing care of this patient today ____ minutes.
[2024-05-02 12:54] VITALS: BP 145/88; PULSE 68
[2024-05-02 18:47] VITALS: BP 148/80
[2024-05-02 19:46] VITALS: BP 142/85; PULSE 65; RESP 16; TEMP 36.9; O2SAT 99
[2024-05-02] MEDS: Melatonin 3 MG TABLET 9 MG PO (21:02)
[2024-05-02] MEDS: hydrOXYzine HCL 25 MG TABLET PO (22:31)
[2024-05-03] VITALS (7 sets, daily range): BP systolic 129–149; BP diastolic 73–89; PULSE 68–75; RESP 15; TEMP 36.4–36.8; O2SAT 99
[2024-05-03] MEDS: traZODone HCL 50 MG TABLET PO (00:15)
[2024-05-03] MEDS: cloNIDine HCL 0.1 MG TABLET PO ×6 (03:46→23:04)
[2024-05-03] MEDS: Omeprazole 20 MG CAPSULE.DR PO (08:03)
[2024-05-03] MEDS: Acetaminophen 325 MG TABLET 650 MG PO ×2 (08:03→20:07)
--- NOTE | 2024-05-03 09:07 | P.PNPSI_ITS ---
Subjective Subjective Date of Service: 05/03/24 Reason For Visit: Depression Subjective Notes: Conditional Voluntary Interim History: patient was seen and discussed in rounds today. He states that he is having trouble sleeping and the trazodone even at 100 mg has been ineffective. We discussed options and I will try him on Seroquel 100 mg q.h.s. p.r.n.. Side effects discussed. He continues to be guarded. Not having any withdrawal symptoms. He has not been using any methadone and wants to start the Suboxone as of tomorrow. No SI. No other changes were made today Medication Compliance: Yes Review of Systems Review of Systems Sleep Yes all other systems are reviewed and are negative Mental Status Exam Mental Status Exam Narrative: In today's visit he is drowsy post clonidine use. Speech is soft-spoken. Minimal eye contact. Affect is subdued. No signs of psychosis. No gross cognitive deficits other than slow thought processes secondary to drowsiness. No SI. Judgment is intact. Diagnostics Vital Signs (24Hr): Vital Signs - 24 hr 05/02/24 12:54 05/02/24 18:47 05/02/24 19:46 Temperature 98.5 F Pulse Rate 68 65 Respiratory Rate 16 Blood Pressure 145/88 H 148/80 H 142/85 H Pulse Oximetry 99 Oxygen Delivery Method Room Air 05/03/24 03:46 05/03/24 07:17 05/03/24 07:57 Temperature 98.2 F Pulse Rate 75 Respiratory Rate Blood Pressure 136/81 148/76 H 149/78 H Pulse Oximetry 99 Oxygen Delivery Method Room Air BMI result Body Mass Index 35.9 Labs 04/26/24 15:34 04/26/24 15:34 Medications Medications Current Medications Acetaminophen (Acetaminophen 325 Mg Tablet) 650 mg PO Q6H PRN PRN Reason: Headache/Pain, Scale 1-10 Last Admin: 05/03/24 08:03 Dose: 650 mg Al Hydroxide/Mg Hydroxide (Magnesium Hydrox/Alum Hydrox 30 Ml Oral.Susp) 30 ml PO Q6H PRN PRN Reason: Heartburn/Nausea Last Admin: 04/30/24 04:04 Dose: 30 ml Buprenorphine/Naloxone (Buprenorphine/Naloxone 8/2 Mg Tab.Subl) 1 tab SUBLINGUAL DAILY SHARIF Last Admin: 05/03/24 08:32 Dose: Not Given Clonidine HCl (Clonidine Hcl 0.1 Mg Tablet) 0.1 mg PO BID [facility]; Protocol Last Admin: 05/03/24 09:01 Dose: Not Given Clonidine HCl (Clonidine Hcl 0.1 Mg Tablet) 0.1 mg PO Q4H PRN; Protocol PRN Reason: opiod w/drawal symptoms Last Admin: 05/03/24 07:17 Dose: 0.1 mg Cyclobenzaprine HCl (Cyclobenzaprine Hcl 10 Mg Tablet) 10 mg PO TID PRN PRN Reason: muscle cramps Hydroxyzine HCl (Hydroxyzine Hcl 25 Mg Tablet) 25 mg PO Q6H PRN PRN Reason: mild anxiety Last Admin: 05/02/24 22:31 Dose: 25 mg Magnesium Hydroxide (Milk Of Magnesia 30 Ml Oral.Susp) 30 ml PO DAILY PRN PRN Reason: Constipation Melatonin (Melatonin 3 Mg Tablet) 9 mg PO BEDTIME PRN PRN Reason: insomnia Last Admin: 05/02/24 21:02 Dose: 9 mg Methadone HCl (Methadone Hcl 20 Mg/2 Ml Oral.Conc) 5 mg PO DAILY@0800 [facility] Stop: 05/03/24 11:00 Last Admin: 05/03/24 08:05 Dose: Not Given Multi-Ingred Cream/Lotion/Oil/Oint (Mineral Oil/Petrolatum,White 106 Gm Tube) 1 appl TOPICAL BID PRN; Protocol PRN Reason: dry skin Last Admin: 05/01/24 21:12 Dose: 1 appl Nicotine (Nicotine 21 Mg Patch.Td24) 21 mg TRANSDERMA DAILY PRN PRN Reason: smoking cessation Omeprazole (Omeprazole 20 Mg Capsule.Dr) 20 mg PO DAILY [facility] Last Admin: 05/03/24 08:03 Dose: 20 mg Paliperidone Palmitate (Paliperidone Palmitate 234 Mg/1.5 Ml Syringe) 234 mg IM Q30D [facility] Polyethylene Glycol (Polyethylene Glycol 3350 17 Gm Powd.Pack) 17 gm PO DAILY [facility] Last Admin: 05/03/24 08:32 Dose: Not Given Allergies Allergies Allergy/AdvReac Type Severity Reaction Status Date / Time No Known Allergies Allergy Verified 04/26/24 14:45 [No Known Allergies*] Assessment & Plan Assessment & Plan (1) Schizoaffective disorder, depressive type: Status: Acute Code(s): F25.1 - Schizoaffective disorder, depressive type (2) PTSD (post-traumatic stress disorder): Status: Acute Code(s): F43.10 - Post-traumatic stress disorder, unspecified (3) Cocaine use disorder: Status: Acute Code(s): F14.10 - Cocaine abuse, uncomplicated (4) Opioid use disorder: Status: Acute Code(s): F11.90 - Opioid use, unspecified, uncomplicated Assessment and Plan: * methadone 10mg q3H PRN max 3 doses * awaiting psychiatric admission Plan Patient is a 48-year-old male with history of schizoaffective disorder, PTSD, cocaine/opiate use disorder, hx of NSTEMI s/p cocaine use, past gang affiliation, incarceration, recently discharged from 1 week ago who now self presents with suicidal ideation to jump into the river in the face of being off medication and relapse on IV opiate/cocaine. Patient is a little guarded on approach says he does not want to talk. He wants to use methadone for withdrawal symptoms but does not want to get on methadone for treatment; currently denies any SI or HI or AVH. Says he wants to get back on medications. Patient signed a 3 day notice saying he needs to get out of here to attend to errands Formulation/clinical reasoning: Patient has schizoaffective disorder as well as PTSD and ongoing substance abuse struggles. Long history of chaotic life and incarceration at seems that patient is having significant trouble adjusting to life and pursuing sobriety without external structures in place (graduated from [facility] with 13 months of sobriety but relapsed after he left). This admission makes 6 recent inpatient admissions in the past 3 months (04/28/23, 04/17/24, 03/27/24, 02/27/24, 02/17/24, 01/17/24) with similar pattern of patient discharging, relapsing, going off his meds, getting suicidal and self presenting, only to quickly ask for discharge and repeat the cycle. -suspicion that patient is diverting Suboxone; does not want to go on methadone for maintenance. Will restart home medications, risperidone; patient usually returns to baseline soon Hospital course: 04/29 Patient friendly, calm and engaged. Says he is feeling back to his regular self. Patient denies any SI or HI or AVH or any paranoid thinking at all and says this has remained true even though he was off his risperidone. He thinks that now the Invega Sustenna shot that he received last admission is actually working. Patient no longer wants Remeron or Risperdal, feeling in good mood and in good self-control. -patient retracted 3 day notice wanting to stay for further treatment Discussed substance abuse struggles. Patient acknowledges he has not been taking Suboxone regularly; instead he has been using it as needed for withdrawal. Patient however says he wants to get on Suboxone now and be titrated up to 24 mg, which he says he was on in the past. Patient also says that he wants to figure out how to stay sober from fentanyl (and cocaine) without relying on Suboxone. Will need to further clarify. Patient does not want a substance abuse program but instead is trying to pursue getting into a sober living house in [place]. 04/30 Patient remains with better, anxiety minimal and AVH delusional thinking; however he is not feeling physically. Patient reports epigastric abdominal discomfort and reports he has not a bowel movement in over a week. He agrees to laxatives. discussed hypertension: considered options/risks/side-effects; patient has history of AL (secondary to cocaine abuse) so considering metoprolol over amlodipine 05/01 Patient reports he is feeling much better in good. Said he a good bowel movement and vomited 1 time and since then he has felt back to his regular self. Patient wants to get on Suboxone and feature writer agreed to start. Patient denies any SI or HI or AVH -blood pressure stable; well hold off on antihypertensive at this time Patient does any further help with substance abuse other than getting Suboxone. Does not want help with programming said he will follow up on his home with outpatient Suboxone provider 05/03: Continue current regimen and plans. Discontinue trazodone. Start Seroquel 100 mg q.h.s. p.r.n. PLAN: CV; q15min checks Start Suboxone and titrate day mg daily Discontinue Risperdal (patient seems to be stable on Invega Sustenna which he received last admission) Discontinue Remeron; patient does not want Continue Invega Sustenna 234 mg Q 28 days (due 05/08/24) Clonidine 0.1 mg b.i.d. Mirtazapine 15 mg q.h.s. Methadone 20 mg tomorrow and then 10 mg following; 05/02/24: Continue current plans and regimen Patient educated on: medication risk/benefits Reason for continued inpatient stay Substantial Risk for: med/psych decompensation Time Spent With Patient Time: Total time managing care of this patient today ____ minutes.
[2024-05-03] MEDS: Melatonin 3 MG TABLET 9 MG PO (20:07)
[2024-05-03] MEDS: QUEtiapine Fumarate 100 MG TABLET PO (20:07)
[2024-05-03] MEDS: hydrOXYzine HCL 25 MG TABLET PO (23:04)
[2024-05-04 04:50] VITALS: BP 123/76
[2024-05-04] MEDS: Acetaminophen 325 MG TABLET 650 MG PO (04:50)
[2024-05-04] MEDS: cloNIDine HCL 0.1 MG TABLET PO ×2 (04:50→08:07)
[2024-05-04 08:00] VITALS: BP 138/76; PULSE 72; TEMP 36.8; O2SAT 100
[2024-05-04] MEDS: Omeprazole 20 MG CAPSULE.DR PO (08:07)
--- NOTE | 2024-05-04 09:48 | PM.PSYDC ---
DS: Providers Provider Date of Service: 05/04/24 Date of admission: 04/27/24 13:48 Date of discharge: 05/04/24 Primary care physician: Lara Headley MD Attending physician on admission: Tyler De Santiago Attending physician on discharge: Tyler De Santiago DS: Diagnosis Discharge Diagnosis (1) Schizoaffective disorder, depressive type: Status: Acute (2) PTSD (post-traumatic stress disorder): Status: Acute (3) Cocaine use disorder: Status: Acute (4) Opioid use disorder: Status: Acute DS: Medications Discharge Medications Home Medications: Home Medications ?Medication ?Instructions ?Recorded ?Confirmed buprenorphine 8 mg-naloxone 2 mg 2 film buccal DAILY 04/26/24 04/26/24 sublingual film (Suboxone) melatonin 5 mg tablet 10 mg PO BEDTIME PRN insomnia 04/26/24 04/26/24 omeprazole 20 mg capsule,delayed 20 mg PO DAILY 04/26/24 04/26/24 release Previous Rx's ?Medication ?Instructions ?Recorded clonazepam 0.5 mg tablet 0.5 mg PO DAILY PRN severe anxiety 04/17/24 10 days #10 tabs clonidine HCl 0.1 mg tablet 0.1 mg PO BID 30 days #60 tabs 04/17/24 mirtazapine 15 mg tablet 15 mg PO BEDTIME 30 days #30 tabs 04/17/24 risperidone 3 mg tablet 3 mg PO BEDTIME 30 days #30 tabs 04/17/24 trazodone 50 mg tablet 50 mg PO BEDTIME PRN Insomnia 30 04/17/24 days #30 tabs Mental Status Exam Mental Status Exam Narrative: Pt is alert and oriented; behavior is cooperative, friendly and calm; patient is not in distress; dressed in casual attire with good hygiene and grooming; mood is described as good and affect congruent, bright, calm, though irritable as well; eye contact appropriate; Speech is normal rate, volume and prosody and not pressured; no psychomotor agitation/retardation present; thought process is organized and goal directed; Thought content is on tx; otherwise pertinent to relevant topics and without any delusional content, paranoid ideations or grandiosity; denies any SI/HI. There is no evidence of perceptual disturbance. Patients insight and judgment are fair Data Data Completed and Pending Completed studies during hospitalization [Text1]: 04/27/24 04/29/24 04/30/24 11:36 07:36 08:40 Total Bilirubin 0.2 Direct Bilirubin < 0.2 AST 27 ALT 47 H Alkaline Phosphatase 107 Total Protein 7.2 Albumin 3.6 Urine Color Yellow Urine Appearance Clear Urine pH 7.5 Ur Specific Ermine 1.015 Urine Protein Negative Urine Glucose (UA) Negative Urine Ketones Negative Urine Blood Negative Urine Nitrite Negative Ur Leukocyte Esterase Negative Urine Opiates Screen POSITIVE H Ur Buprenorphine Scrn Not Detected Ur Oxycodone Screen Not Detected Urine Methadone Screen Not Detected Urine Fentanyl Screen POSITIVE H Ur Barbiturates Screen Not Detected Ur Phencyclidine Scrn Not Detected Ur Amphetamines Screen Not Detected U Benzodiazepines Scrn Not Detected Urine Cocaine Screen POSITIVE H U Marijuana (THC) Screen Not Detected Influenza Type A (PCR) NEGATIVE Influenza Type B (PCR) NEGATIVE RSV RNA Qual (PCR) NEGATIVE SARS-CoV-2 RNA (RT-PCR) NEGATIVE DS: Summary Hospital Course Hospital Course: Patient is a 48-year-old male with history of schizoaffective disorder, PTSD, cocaine/opiate use disorder, hx of NSTEMI s/p cocaine use, past gang affiliation, incarceration, recently discharged from 1 week ago who now self presents with suicidal ideation to jump into the river in the face of being off medication and relapse on IV opiate/cocaine. Patient is a little guarded on approach says he does not want to talk. He wants to use methadone for withdrawal symptoms but does not want to get on methadone for treatment; currently denies any SI or HI or AVH. Says he wants to get back on medications. Patient signed a 3 day notice saying he needs to get out of here to attend to [facility] course: Patient presents with depression; no SI and no AVH. Very vague on substance abuse and treatment. He asked for methadone to help with detox. Patient has schizoaffective disorder as well as PTSD and ongoing substance abuse struggles. Long history of chaotic life and incarceration at seems that patient is having significant trouble adjusting to life and pursuing sobriety without external structures in place (graduated from [facility] with 13 months of sobriety but relapsed after he left). Discussed with patient how This admission makes 6 recent inpatient admissions in the past 3 months (04/28/23, 04/17/24, 03/27/24, 02/27/24, 02/17/24, 01/17/24) with similar pattern of patient discharging, relapsing, going off his meds, getting suicidal and self presenting, only to quickly ask for discharge and repeat the cycle. Discussed ad copy writer's strong recommendation that patient consider MAT of either methadone or Suboxone. Patient initially refuses either; later he says he wants to get on Suboxone but only before discharge. Patient also refuses any help with substance abuse treatment programs or outpatient options; pt has own idea about a specific TSS but again says he will pursue on his own. Rather he wants to work out his sobriety on his own. Patient acknowledges that he does not take it regularly but rather sometimes uses it to help him detox. -there is some suspicion that patient is diverting Suboxone Patient refused Risperdal however he soon returned to his baseline, friendly calm and engaged and reported feeling back to his regular self. Patient denies any SI or HI or AVH or any paranoid thinking at all and says this has remained true even though he was off his risperidone. Meter Repairer agrees with patient that perhaps the Invega Sustenna shot that he received last admission is actually working. Patient no longer wants Remeron or Risperdal, feeling in good mood and in good self-control. -patient retracted 3 day notice wanting to stay for further treatment -Patient reports epigastric abdominal discomfort and reports he has not a bowel movement in over a week; patient had a bowel movement and 1 bout of emesis discomfort fully resolved. -discussed hypertension and possibly adding another anti hypertensive; however with clonidine and off cocaine, patient's blood pressure returned to within normal and remain so. -again Discussed substance abuse struggles. Although patient acknowledges he has not been taking Suboxone regularly, now says that he would like to get on it and to be titrated on to 8 mg t.i.d.. -patient started on Suboxone which was increased to Suboxone 8 mg daily... HOWEVER patient did not take any doses. Discharge: Patient wanted to discharge saying had a dentist appointment the following day he did not want to miss. Patient wanted to be written a prescription for Suboxone 8 mg t.i.d., with at least a week's worth of strips, despite the fact that he has an appointment in 2 days with his outpatient Suboxone provider. Meter Repairer address that patient has not taken any Suboxone as was discussed and agreed upon. Patient said that he was worried about it causing precipitated withdrawal since he had taken some methadone for detox. Meter Repairer agreed that if patient were to take Suboxone today (day of discharge), ad copy writer would give patient a Suboxone script that would cover him for the next 2 days until he met with his outpatient provider at their scheduled appointment this week. It was not clear why but patient refused this option and instead said he did not want to take any Suboxone today and would just go to his outpatient provider today instead. Meter Repairer inquired as to why patient was refusing a 2 day script however patient remained adamant about his own plan to discharge, getting his own Suboxone and handling his own treatment. While patient remains vulnerable to relapse and decompensation, this is becoming a chronic struggle for him and 1 that will not resolve with longer stay on inpatient unit, but rather requires consistent commitment to outpatient sobriety and treatment. Patient is at baseline. He is in good behavioral and impulse control, organized in speech and behavior not in imminent risk for harm to self or others. His request for discharge honored. Medication: Continue Invega Sustenna 234 mg Q 28 days (due 05/08/24); patient agrees to go on his own to [facility] where they will administer this IM medication; ad copy writer discussed risks of missing dose which patient understands Discontinue Risperdal (patient seems to be stable on Invega Sustenna which he received last admission) Discontinue Remeron; patient does not want Time spent discussing smoking cessation with patient: 3 to 10 minutes Status at Discharge Functional status at discharge: independent ambulation Overall status at discharge: patient is back to baseline Time Spent with Patient Time attestation: Total time managing care of this patient today _40___ minutes. Specific discharge activities: Met with patient; discussed with team; prescriptions, charting Discharge Plan Discharge Anticipated Discharge Date/Time: 05/04/24 11:19 Patient Disposition: Home, Self-Care Discharge Diagnosis: Schizoaffective disorder, depressive type (vs bipolar type?) Referrals: [facility] [place] Intake w [facility] for Therapy & Psychiatry [Other] - 05/07/24 11:00 am (You will need to make this appointment in order for you to be prescribed your Invega Sustenna. ) [facility] [place] Recovery [Other] - 05/07/24 2:30 pm (You also have follow up appointments with Recovery on the and the . Follow up with them on times at this appointment. ) [facility] [place] Dental Appointment [Other] - 05/25/24 1:30 pm Lara Headley MD [Primary Care Provider] - 1 Week (please schedule follow-up appt in 1 week) Discharge Medications: New hydroxyzine HCl 25 mg Tablet 25 mg PO Q6H PRN (Reason: mild anxiety) 30 Days Qty: 60 0RF Invega Sustenna 234 mg/1.5 mL Syringe 234 mg IM Q30D 28 Days Qty: 1.5 0RF Rx Instructions: Please Administer to patient on 05/08/24 quetiapine 100 mg Tablet 100 mg PO BEDTIME PRN (Reason: sleep) 30 Days Qty: 30 0RF Continued melatonin 10 mg tablet 10 mg PO BEDTIME PRN (Reason: sleep) 30 Days Qty: 30 0RF Changed clonidine HCl 0.1 mg tablet See Rx Instructions .ROUTE .COMPLEX 30 Days Qty: 90 0RF Rx Instructions: take 1 tab in the morning and 1 at bedtime; may take 1 tab daily as needed for anxiety omeprazole 20 mg capsule,delayed release(DR/EC) 20 mg PO DAILY 30 Days Qty: 30 0RF Discontinued clonazepam 0.5 mg Tablet 0.5 mg PO DAILY PRN (Reason: severe anxiety) 10 Days Qty: 10 0RF mirtazapine 15 mg Tablet 15 mg PO BEDTIME 30 Days Qty: 30 0RF risperidone 3 mg tablet 3 mg PO BEDTIME 30 Days Qty: 30 0RF trazodone 50 mg Tablet 50 mg PO BEDTIME PRN (Reason: Insomnia) 30 Days Qty: 30 0RF buprenorphine-naloxone [Suboxone] 8-2 mg film 2 film buccal DAILY Discharge Orders: Discharge Order (Routine); Ordered 05/04/24 Ordered By: Tyler De Santiago Diet: Regular diet Activity on Discharge: As tolerated Stand Alone Forms: Patient Portal Discharge page, Community Support Print Language: Ukrainian Care Plan Goals: Maintain mood and safe behaviors Take medications as prescribed Continue to pursue sobriety Practice coping skills Continue with outpatient providers and reach out to them as needed Health Concerns: Mood stability and behaviors Sobriety Plan of Treatment: Follow up with your PCP, psychiatric provider and other outpatient providers regarding above concerns Take medications as prescribed On 05/08/24 *get your Invega Nicoleenna IM shot GO TO: [facility] [address] [place] [address] Assessment: Risk assessment at time of discharge:? Patient was interviewed prior to discharge and found to be fully oriented and without any SI or HI. Patient has improved insight and judgment and wants to continue treatment. Patient is not in imminent risk of harm to self or others and has a safety plan that includes presenting to the closest ER or calling 911 if feeling unsafe.? Patient has been observed closely by nursing and unit staff throughout admission; patient has not engaged in any behaviors that suggest dangerousness to self or others and has demonstrated appropriate behaviors and impulse control Discharge Date/Time: 05/04/24 11:37
[2024-05-04] MEDS: Naloxone HCl Nasal TAKE HOME 4 MG SPRAY 8 MG NOSTRILALT (10:15)
== END 2024-05-04 11:37 | disposition home or self-care (01) | DRG 750 ==
LOC: HO.ED 04-27 09:06 → HO.PM5 04-27 13:49
PROVIDERS: Physician Assistant; Admitting Provider Psychiatry & Neurology Psychiatry; Emergency Provider Emergency Medicine; PCP Internal Medicine; Visit Provider Psychiatry & Neurology Psychiatry
DX: F25.1 Schizoaffective disorder, depressive type (principal); R45.851 Suicidal ideations; F43.10 Post-traumatic stress disorder, unspecified; F14.10 Cocaine abuse, uncomplicated; F11.90 Opioid use, unspecified, uncomplicated; Z20.822 Contact with and (suspected) exposure to COVID-19; Z79.899 Other long term (current) drug therapy
CPT/HCPCS: 0241U; 36415; 80053; 80076; 80307; 81003; 85025; 93005; 99285; S9485

== ENCOUNTER → 2024-04-27 11:43 | Outpatient (BNV) | payer MEDICAID, SELFPAY | PROVIDERS: Admitting Provider Psychiatry & Neurology Psychiatry; Emergency Provider Emergency Medicine; PCP Internal Medicine; Visit Provider Internal Medicine Cardiovascular Disease | DX: F99 Mental disorder, not otherwise specified (principal) | CPT/HCPCS: 93010 ==

== ENCOUNTER → 2024-04-27 13:48 | Outpatient (BNV) | payer OTHER, SELFPAY | PROVIDERS: Admitting Provider Psychiatry & Neurology Psychiatry; Emergency Provider Emergency Medicine; PCP Internal Medicine; Visit Provider Nurse Practitioner Psychiatric/Mental Health | DX: F11.90 Opioid use, unspecified, uncomplicated (principal) | CPT/HCPCS: 99499 ==

== ENCOUNTER → 2024-04-27 13:48 | Outpatient (BNV) | payer OTHER, SELFPAY | PROVIDERS: Admitting Provider Psychiatry & Neurology Psychiatry; Emergency Provider Emergency Medicine; PCP Internal Medicine; Visit Provider Psychiatry & Neurology Psychiatry | DX: F25.1 Schizoaffective disorder, depressive type (principal); F14.10 Cocaine abuse, uncomplicated; F11.90 Opioid use, unspecified, uncomplicated; F43.11 Post-traumatic stress disorder, acute | CPT/HCPCS: 99231; 99232 ==

== ENCOUNTER 2024-05-22 09:20 | Inpatient (IN) | payer OTHER, SELFPAY ==
[2024-05-22 09:22] VITALS: BP 170/109; PULSE 116; RESP 18; TEMP 37.1; O2SAT 97; BMI 31.6
--- NOTE | 2024-05-22 09:25 | ECG_ITS ---
Test Reason : anxity Blood Pressure : */* mmHG Vent. Rate : 108 BPM Atrial Rate : 108 BPM P-R Int : 152 ms QRS Dur : 80 ms QT Int : 326 ms P-R-T Axes : 54 -20 24 degrees QTcB Int : 436 ms Sinus tachycardia Possible Left atrial enlargement Minimal voltage criteria for LVH, may be normal variant ( R in aVL ) Borderline ECG When compared with ECG of 27-Apr-2024 11:43, Vent. rate has increased by 44 bpm Nonspecific T wave abnormality has replaced inverted T waves in Inferior leads Referred By: Generic ED Physician Electronically Signed By: GABY GROVER MD
[2024-05-22 09:50] LABS: MANUAL DIFF FLAG NO
--- NOTE | 2024-05-22 09:52 | ED.PSYCH ---
HPI - Psych General Chief Complaint: Psychiatric Symptoms Stated Complaint: crisis mental health issue Time Seen by Provider: 05/22/24 09:51 Source: patient, EMS and old records reviewed Mode of arrival: EMS Limitations: no limitations History of Present Illness ED Provider: DEBBIE FISCHER Narrative: 48 yo male with PMH of schizoaffective disorder, substance abuse disorder, PTSD here with c/o drug abuse and depression/SI. He states he has been using and not slept in 3 days. He states he has been hallucinating as well. He denies trauma or headstrike. MD complaint: suicidal ideation, anxiety, substance abuse and hallucinations Onset (ago): day(s) Duration: getting worse History of same: Yes Relieving factors: none Exacerbating factors: drug use Context: recent drug abuse and not taking psychiatric medications Associated psychiatric symptoms: depression, suicidal ideation, racing thoughts, auditory hallucinations and visual hallucinations Associated symptoms: denies other symptoms Treatments prior to arrival: none If self harm: admits thoughts of self harm Related Data Home Medications ?Medication ?Instructions ?Recorded ?Confirmed melatonin 10 mg tablet 10 mg PO BID PRN sleep 05/22/24 05/22/24 Previous Rx's ?Medication ?Instructions ?Recorded clonidine HCl 0.1 mg tablet See Rx Instructions .Route 05/04/24 .COMPLEX 30 days #90 tabs Allergies Allergy/AdvReac Type Severity Reaction Status Date / Time No Known Allergies Allergy Verified 05/22/24 09:25 [No Known Allergies*] Review of Systems Review of Systems: Constitutional : No Fever, No Chills ENT/Mouth : No Ear Pain, No Nasal Congestion, No sore throat Eyes: No Eye Pain, No Swelling, No Redness Cardiovascular : No Chest Pain, No SOB Respiratory : No Cough, No Sputum, No Dyspnea Gastrointestinal : No Nausea, No Vomiting, No Diarrhea, No Hematochezia, No Melena Genitourinary : No Dysuria, No Urinary Frequency, No Hematuria Musculoskeletal : No Myalgias Skin : No Skin Lesions, No rash Neuro : No Weakness, No Numbness, No Paresthesias, No Dizziness, No Headache Psych : positive Anxiety, positive Depression, positive SI no HI Heme/Lymph: No Lymphadenopathy Endocrine : No Polyuria, No Polydipsia All other systems reviewed and are negative [facility] Past Medical History Attestation statement: The following information was validated with the patient. Source: old records reviewed Medical History Tachycardia Elevated troponin Hypermagnesemia KATHYA (acute kidney injury) Schizoaffective disorder, depressive type Suicidal ideation Polysubstance abuse Opioid use disorder Polysubstance abuse NSTEMI (non-ST elevated myocardial infarction) PTSD (post-traumatic stress disorder) Cocaine use disorder Polysubstance use disorder Social History Social History Household Members: None Housing: Apartment Do you presently have visiting nurse or other home services: No Unable to assess alcohol history related to: Unknown Alcohol intake: never Patient Tobacco Use Status: Never used Tobacco Smoked in Last 30 Days: No e-Cigarette/Vaping Use: Never Used Second Hand Smoke Exposure: No Use of substances other than those prescribed or required for medical reasons: Yes Substance Use Type: Crack/Cocaine and Heroin Substance Use Frequency: Chronic Longstanding Last Used Substance: Hours (ago) Any prior treatment program specific to substance use: Yes Advance Directives: No Advance Directives Information Provided: Yes service: No Sexual orientation: Straight/Heterosexual Physical Exam Vital Signs: Vital Signs: Last Vital Signs Temp 98.2 F 05/22/24 14:22 Pulse 67 05/22/24 14:22 Resp 16 05/22/24 14:22 BP 143/82 H 05/22/24 14:22 Pulse Ox 99 05/22/24 14:22 O2 Del Method Room Air 05/22/24 14:22 BMI result Body Mass Index 31.6 Appearance: Alert. Oriented X3. No acute distress. Not toxic eating a sandwhich calm and cooperative coherent conversation Eyes: Pupils equal, round and reactive to light. ENT: Pharynx normal. Neck: Normal inspection. Neck supple. CVS: tachycardic heart rate and rhythm. Pulses normal. Respiratory: No respiratory distress. Breath sounds normal. Abdomen: Soft and nontender. Skin: Skin warm and dry. Normal skin color. Normal skin turgor. Extremities: No lower extremity edema. No calf ttp Neuro: Oriented X 3. No motor deficit. No sensory deficit. CN2-12 intact Course Course Course Narrative: signed out to oncoming provider [phone] to oncoming provider Medications Administered Generic Name Dose Route Start Last Admin Trade Name Freq PRN Reason Stop Dose Admin Clonidine HCl 0.1 mg 05/22/24 10:15 05/22/24 11:09 Clonidine Hcl 0.1 Mg Tablet PO 0.1 mg BID SHARIF Administration Protocol Discontinued Medications Generic Name Dose Route Start Last Admin Trade Name Nicol PRN Reason Stop Dose Admin Methadone HCl 30 mg 05/22/24 10:14 05/22/24 11:10 Methadone Hcl 20 Mg/2 Ml Oral.Conc PO 05/22/24 10:15 30 mg ONCE ONE Administration Medical Decision Making Medical Decision Making [facility] Narrative: 48 yo male with PMH of schizoaffective disorder, substance abuse disorder, PTSD here with c/o SI and drug use last used cocaine 2 hours ago he is also using fentanyl on arrival he c/o SI and depression. He will need basic labs, EKG, he has no chest pain, PO methadone 30mg at his request, PRN ativan, home medications. Referred to CARE team Differential Diagnosis Differential Diagnoses: The differential diagnosis associated with the presentation includes drug abuse, schizoaffective disorder Admission/Observation Consideration of admission/observation: Escalation of care including admission/observation considered physician observation started at 1005am pending CARE team input Consult Healthcare Provider Management of the patient was discussed with: Behavioral Health Provider Lab Data [facility] Lab Attestation statement: I reviewed the patient's lab results. 05/22/24 09:40 05/22/24 09:40 Labs: Lab Results 05/22/24 Range/Units 09:40 WBC 5.7 (4.8-10.8) X10*3/uL RBC 4.67 (4.60-5.80) X10*6/uL Hgb 12.2 L (14.0-18.0) g/dl Hct 37.7 L (42.0-52.0) % MCV 80.7 (80.0-98.0) fL MCH 26.1 L (27.0-33.0) pg MCHC 32.4 (31.0-36.0) g/dl RDW 15.4 (11.0-16.0) % Plt Count 303 (160-400) X10*3/uL MPV 8.4 L (9.4-12.4) fL Immature Gran % (Auto) 0.2 (0.0-0.4) % Neut % (Auto) 54.0 (45-73) % Lymph % (Auto) 30.1 (20-40) % Bland % (Auto) 14.1 H (2-11) % Eos % (Auto) 1.1 (0-4) % Baso % (Auto) 0.5 (0-2) % Lymph # (Auto) 1.7 (1.2-4.9) X10*3/uL Bland # (Auto) 0.8 (0.1-1.2) X10*3/uL Eos # (Auto) 0.1 (0.0-0.4) X10*3/uL Baso # (Auto) 0.0 (0.0-0.2) X10*3/uL Abs Immat Gran (auto) 0.01 (0.00-0.03) X10*3/uL Absolute Neuts (auto) 3.1 (2.0-8.3) x10*3/uL Absolute Nucleated RBC 0.000 (0.0-0.012) X10*3/uL Nucleated RBC % (auto) 0.0 (0.0-0.2) /100WBC Sodium 137 (135-145) mmol/L Potassium 4.0 (3.3-5.1) mmol/L Chloride 101 (96-108) mmol/L Carbon Dioxide 29 (22-29) mmol/L Anion Gap 11 L (12-20) BUN 21 H (9-16) mg/dL Creatinine 0.91 (0.5-1.4) mg/dL Estim Creat Clear Calc 92.3 Estimated GFR > 60 Random Glucose 90 (60-115) mg/dL Calcium 9.7 (8.4-10.2) mg/dL Magnesium 2.0 (1.6-2.6) mg/dL Total Bilirubin 0.6 (0.0-1.0) mg/dL AST 40 H (5-37) U/L ALT 32 (0-40) U/L Alkaline Phosphatase 75 (39-117) U/L Total Protein 8.1 H (6.5-8.0) g/dL Albumin 4.5 (3.5-5.0) g/dL Urine Color Yellow Urine Appearance Clear Urine pH 7.0 (5.0-9.0) Ur Specific [place] 1.020 (1.005-1.025) Urine Protein Trace (Neg-Trace) mg/dL Urine Glucose (UA) Negative (Negative) mg/dL Urine Ketones 15 (Negative) mg/dL Urine Blood Negative (Negative) Urine Nitrite Negative (Negative) Ur Leukocyte Esterase Negative (Negative) Urine Opiates Screen POSITIVE H (Not Detect) Ur Buprenorphine Scrn Not Detected (Not Detect) ng/mL Ur Oxycodone Screen Not Detected (Not Detect) ng/mL Urine Methadone Screen Not Detected (Not Detect) ng/mL Urine Fentanyl Screen POSITIVE H (Not Detect) Ur Barbiturates Screen Not Detected (Not Detect) Ur Phencyclidine Scrn Not Detected (Not Detect) Ur Amphetamines Screen Not Detected (Not Detect) U Benzodiazepines Scrn Not Detected (Not Detect) Urine Cocaine Screen POSITIVE H (Not Detect) U Marijuana (THC) Screen Not Detected (Not Detect) Independent Interpretation I performed an independent interpretation of an: EKG Interpretation: Rate: 108 Rhythm: sinus tachycardia [place]: left, LVH Normal P waves. Normal PIETRO. Normal QRS complex. ST T wave : nonspecific ST T wave changes, no PEÑA qTC: 436 prior studies: The study has been interpreted contemporaneously by me. . External Record Review External record reviewed: Outpatient record Social Determinants Patient?s care significantly limited by Social Determinants of Health including: Problems related to primary support group Discharge Plan Discharge Clinical Impression: Opioid use disorder, Cocaine use disorder, Schizoaffective disorder, depressive type Patient Disposition: Still a Patient Prescriptions: No Action clonidine HCl 0.1 mg tablet See Rx Instructions .ROUTE .COMPLEX 30 Days Qty: 90 0RF Rx Instructions: take 1 tab in the morning and 1 at bedtime; may take 1 tab daily as needed for anxiety melatonin 10 mg tablet 10 mg PO BID PRN (Reason: sleep) Interventions: [place]-Suicide Risk Severity Scale Last Done: 05/22/24 09:53 Print Language: Libyan
[2024-05-22 09:55] LABS: Appearance Urine Clear; Color Urine Yellow; Glucose Urine UA Negative (Negative); Leukocyte Esterase Urine Negative (Negative); Nitrite Urine Negative (Negative); Urine Blood Negative (Negative); Urine Ketones 15 mg/dL (Negative); Urine Protein Trace mg/dL (Neg-Trace)
[2024-05-22 09:57] VITALS: BP 173/104; PULSE 103; RESP 18; O2SAT 98
[2024-05-22 09:57] LABS: Basophils Percent Auto 0.5 % (0-2); Eosinophils Absolute Auto 0.1 X10*3/uL (0.0-0.4); Eosinophils Percent Auto 1.1 % (0-4); Hematocrit 37.7 % (42.0-52.0); Hemoglobin 12.2 g/dl (14.0-18.0); Imm Gran Abs Auto 0.01 X10*3/uL (0.00-0.03); Imm Gran Pct Auto 0.2 % (0.0-0.4); Lymphocytes Absolute Auto 1.7 X10*3/uL (1.2-4.9); Lymphocytes Percent Auto 30.1 % (20-40); Mean Corpuscular HGB Conc 32.4 g/dl (31.0-36.0); Mean Corpuscular Hemoglobin 26.1 pg (27.0-33.0); Mean Corpuscular Volume 80.7 fL (80.0-98.0); Mean Platelet Volume 8.4 fL (9.4-12.4); Monocytes Absolute Auto 0.8 X10*3/uL (0.1-1.2); Monocytes Percent Auto 14.1 % (2-11); Neutrophils Absolute Auto 3.1 x10*3/uL (2.0-8.3); Platelet Count 303 X10*3/uL (160-400); Red Blood Count 4.67 X10*6/uL (4.60-5.80); Red Cell Distribution Width 15.4 % (11.0-16.0); White Blood Count 5.7 X10*3/uL (4.8-10.8)
[2024-05-22 10:02] LABS: Amphetamine Screen Urine Not Detected (Not Detect); Barbiturates, Urine Not Detected (Not Detect); Benzodiazepines Screen Urine Not Detected (Not Detect); Buprenorphine Scr Not Detected (Not Detect); Cannabinoid Screen Urine Not Detected (Not Detect); Cocaine Screen Urine POSITIVE (Not Detect); Fentanyl, urine POSITIVE (Not Detect); Methadone Screen, Urine Not Detected (Not Detect); Opiate Screen Urine POSITIVE (Not Detect); Oxycodone Screen Urine Not Detected (Not Detect); Phencyclidine Screen Urine Not Detected (Not Detect)
[2024-05-22 10:16] LABS: Alanine Aminotransferase 32 U/L (0-40); Albumin Level 4.5 g/dL (3.5-5.0); Alkaline Phosphatase 75 U/L (39-117); Anion Gap 11 (12-20); Aspartate Amino Transferase 40 U/L (5-37); Bilirubin Total 0.6 mg/dL (0.0-1.0); Blood Urea Nitrogen 21 mg/dL (9-16); Calcium 9.7 mg/dL (8.4-10.2); Carbon Dioxide 29 mmol/L (22-29); Chloride 101 mmol/L (96-108); Creatinine Clr Calc Pharmacy 92.3; Estimated Glomerular Filt Rate > 60; Glucose Random 90 mg/dL (60-115); Sodium 137 mmol/L (135-145); Total Protein 8.1 g/dL (6.5-8.0)
[2024-05-22] MEDS: cloNIDine HCL 0.1 MG TABLET PO ×2 (11:09→21:55)
[2024-05-22] MEDS: methADONE HCl 20 MG/2 ML ORAL.CONC 30 MG PO (11:10)
--- NOTE | 2024-05-22 12:22 | PC.NURSE ---
PT RESTING IN NAD SINCE ARRIVAL, PLEASANT, BEHAVIOURS NON CONCERNING, INTERACTING WITH STAFF, ABLE TO MAKE NEEDS KNOWN.
--- OUTSIDE RECORDS SUMMARY | 2024-05-22 13:29 | XMS_ITS | Encounter Summary ---
Author Organization [employer] Address [address] [facility] [address] [place] [address] Care Team Providers Care Overhead Door Technician Name Role Phone Lara Headley MD Primary Care Provider + Reason for Visit * Reason Onset Date Comments No Show 04/30/2024 Encounter Details Date Type Department Care Team ([facility] st Contact Info) Description 04/30/2024 Telephone [facility] MEDICINE [address] [place], [place] [phone] Lara Headley MD [address] [place], [place] [phone] No Show Social History Tobacco Use Types Packs/Day Years [...] encounter Miscellaneous Notes * Telephone Encounter - Nancy Baxter RN - 04/30/2024 2:13 PM EST Noted. Patient does not have a phone number. RN called mothers number however it appears to be disconnected the service you are attempting to use has been restricted or is unavailable . Patient to f/u EMILY MADRIGAL has sent letter to address on file. * Telephone Encounter - Torie Del Real - 04/30/2024 11:01 AM EST Pt no showed to appt on 04/30/24 documented in this encounter Plan of Treatment Upcoming Encounters Date Type Department Care Team (Late st Contact Info) Description 05/25/2024 1:30 PM EDT Office Visit [facility] ADULT DENTAL [address] [place] [address] Armand Prieto DDS [address], [place] [phone] 05/26/2024 10:15 AM EDT Office Visit [facility] MEDICINE [address] [place] [phone] Violeta Correia MD [address] [place] [phone] 05/27/2024 9:00 AM EDT Office Visit [address] [address] Christian Arreguin MD [address] [place] [phone] 06/03/2024 9:00 AM EDT Office Visit [address] [address] Christian Arreguin MD [address] [place] [address] [phone] documented as of this encounter Visit Diagnoses Not on filedocumented in this encounter Additional Health Concerns Assessment Noted Time PHQ-9 Depression Total Score: 3 04/23/19 25 11:02 AM EST documented as of this encounter Care Teams Overhead Door Technician Relationship Specialty Start Date End Date Lara Headley MD [address] [place] [address] [phone] PCP - General Family Medicine 08/31/16 documented as of this encounter
--- OUTSIDE RECORDS SUMMARY | 2024-05-22 13:29 | XMS_ITS | Encounter Summary ---
Author Organization [employer] Address [address] [facility] 7t [place] [address] Care Team Providers Care Photocopy Operator Name Role Phone Lara Headley MD Primary Care Provider + Reason for Visit * Reason Comments Recovery Supports Encounter Details Date Type Department Care Team ([facility] st Contact Info) Description 05/04/2024 Patient Outreach [facility] MEDICINE [address] [place], [place] [phone] Evaristo Canchola [address] [place] [address] Recovery Supports Social History Tobacco Use Types [...] as of this encounter Progress Notes * Evaristo Canchola - 05/04/2024 2:13 PM EDT I met with Sudhir today. Setting: in person at [facility] Recovery Wellness Goals worked on: Physical Health/Mental Health, Social Stability, and Spiritual Wellness Action taken/next steps: Attended recovery support group Additional comments: Participant attended a group session centered on recovery topics, where members engaged in open discussion and offered mutual support Evaristo Canchola documented in this encounter Plan of Treatment Upcoming Encounters Date Type Department Care Team (Late st Contact Info) Description 05/25/2024 1:30 PM EDT Office Visit [facility] ADULT DENTAL [address] [place] [address] Armand Prieto DDS [address] [place] [address] 05/26/2024 10:15 AM EDT Office Visit [facility] MEDICINE [address] [place] [address] Violeta Correia MD [address] [place] [phone] 05/27/2024 9:00 AM EDT Office Visit [address] [phone] Christian Arreguin MD [address] [place] [address] [phone] 06/03/2024 9:00 AM EDT Office Visit [address] [phone] Christian Arreguin MD [address] [place] [address] [phone] documented as of this encounter Goals Goal Patient Goal Type Associated Problems Recent Progress Patient-Stated? Author Keep your medical appointments Lifestyle No Richard Woods, EMILY documented as of this encounter Visit Diagnoses Not on filedocumented in this encounter Additional Health Concerns Assessment Noted Time PHQ-9 Depression Total Score: 3 04/23/19 25 11:02 AM EST documented as of this encounter Care Teams Photocopy Operator Relationship Specialty Start Date End Date Lara Headley MD [address] [place] [address] [phone] PCP - General Family Medicine 08/31/16 documented as of this encounter
--- OUTSIDE RECORDS SUMMARY | 2024-05-22 13:29 | XMS_ITS | Encounter Summary ---
Author Organization [employer] Address [address] [facility] 7t [place] [address] Care Team Providers Care Recreation Facility Attendant Name Role Phone Lara Headley MD Primary Care Provider + Encounter Details Date Type Department Care Team (Latest Contact Info) Description 05/06/2024 Travel Social History Tobacco Use Types Packs/Day [...] Description 05/25/2024 1:30 PM EDT Office Visit [facility] ADULT DENTAL [address] [place] [phone] Armand Prieto DDS [address] [place] [phone] 05/26/2024 10:15 AM EDT Office Visit [facility] MEDICINE [address] [place] [address] Violeta Correia MD [address] [place] [phone] 05/27/2024 9:00 AM EDT Office Visit [address] [address] Christian Arreguin MD [address] [place] [phone] 06/03/2024 9:00 AM EDT Office Visit [address] [address] Christian Arreguin MD [address] [place] [address] documented as of this encounter Goals Goal Patient Goal Type Associated Problems Recent Progress Patient-Stated? Author Keep your medical appointments Lifestyle No Richard Woods RN documented as of this encounter Visit Diagnoses Not on filedocumented in this encounter Additional Health Concerns Assessment Noted Time PHQ-9 Depression Total Score: 3 04/23/19 25 11:02 AM EST documented as of this encounter Care Teams Recreation Facility Attendant Relationship Specialty Start Date End Date Lara Headley MD [address] [place] [phone] PCP - General Family Medicine 08/31/16 documented as of this encounter
--- OUTSIDE RECORDS SUMMARY | 2024-05-22 13:29 | XMS_ITS | Encounter Summary ---
Author Organization [employer] Address [address] [facility] 7t [place] [address] Care Team Providers Care Plan Examiner Name Role Phone Lara Headley MD Primary Care Provider + Encounter Details Date Type Department Care Team (Late st Contact Info) Description 04/27/2024 Orders Only GENERIC EXTERNAL DATA DEPARTMENT Provider, [...] Description 05/25/2024 1:30 PM EDT Office Visit [facility] ADULT DENTAL [address] [place] [address] Armand Prieto DDS [address] [place] [address] 05/26/2024 10:15 AM EDT Office Visit [address] [address] Violeta Correia MD [address] [place] [address] 05/27/2024 9:00 AM EDT Office Visit [address] [address] Christian Arreguin MD [address] [place] [address] 06/03/2024 9:00 AM EDT Office Visit [address] [address] Christian Arreguin MD [address] [place] [phone] documented as of this encounter Procedures Procedure Name Priority Date/Time Associated Diagnosis Comments DRUG MONITOR, PANEL 1, SCREEN, URINE Routine 04/27/2024 11:36 AM EST URINALYSIS WITH REFLEX MICROSCOPIC Routine 04/27/2024 11:36 AM EST documented in this encounter Results * (ABNORMAL) Drug Monitoring, Panel 1, Screen, Urine (04/27/2024 11:36 AM EST) Opiate Screen Urine POSITIVE(A) Not Detect [facility] Comment:Opiate cut-off is 30 0 ng/mL.Positive results are unconfirmed and should not be used fornon-medical purposes. Barbiturates, Urine Not Detected Not Detect [facility] Comment:Barbiturate cut-off is 200 ng/mL.Positive results are unconfirmed and should not be used fornon-medical purposes. Phencyclidine Screen Urine Not Detected Not Detect [facility] Comment:Phencyclidine cut-of f is 25 ng/mL.Positive results are unconfirmed and should not be used fornon-medical purposes. Amphetamine Screen Urine Not Detected Not Detect [facility] Comment:Amphetamine cut-off is 1000 ng/mL.Positive results are unconfirmed and should not be used fornon-medical purposes. Benzodiazepines Screen Urine Not Detected Not Detect [facility] Comment:Benzodiazepine cut-o ff is 200 ng/mL.Positive results are unconfirmed and should not be used fornon-medical purposes. Cocaine Screen Urine POSITIVE(A) Not Detect [facility] Comment:Cocaine cut-off is 3 00 ng/mL.Positive results are unconfirmed and should not be used fornon-medical purposes. Cannabinoid Screen Urine Not Detected Not Detect [facility] Comment:Cannabinoid cut-off is 50 ng/mL.Positive results are unconfirmed and should not be used fornon-medical purposes. Methadone Screen, Urine Not Detected Not Detect ng/mL [facility] Comment:Methadone cut-off is 300 ng/mL.Positive results are unconfirmed and should not be used fornon-medical purposes. FENTANYL URINE POSITIVE(A) Not Detect [facility] Comment:Fentanyl cut-off is 1 ng/mL.Positive results are unconfirmed and should not be used fornon-medical purposes. Oxycodone Urine Screen Not Detected Not Detect ng/mL [facility] Comment:Oxycodone cut-off is 100 ng/mL.Positive results are unconfirmed and should not be used fornon-medical purposes. Buprenorphine Screen Not Detected Not Detect ng/mL [facility] Comment:Buprenorphine cut-of f is 5 ng/mL.Positive results are unconfirmed and should not be used fornon-medical purposes. 04/27/2024 11:3 6 AM EST 04/27/2024 11:42 AM EST us Generic External Data Provider LAB URINE ORDERAB LES Final Result Performing Organization Address [facility]/ZIP Co de Phone Number [facility] [address] [place] [phone] * Urinalysis w/reflex microscopic (04/27/2024 11:36 AM EST) Color Urine Yellow [facility] Appearance Urine Clear [facility] PH 7.5 5.0 - 9.0 [facility] Glucose Urine UA Negative Negative mg/dL [facility] Urine Blood Negative Negative [facility] Specific [place] - Urine 1.015 1.005 - 1.025 [facility] Urine Protein Negative Neg-Trace mg/dL [facility] Urine Ketones Negative Negative mg/dL [facility] Nitrite Urine Negative Negative [facility] Leukocyte Esterase Urine Negative Negative [facility] 04/27/2024 11:3 6 AM EST 04/27/2024 11:42 AM EST Narrative [facility] - 04/27/2024 11:46 AM EST [id number], Clean Catch Generic External Data Provider LAB URINE ORDERAB LES Final Result Performing Organization Address [facility]/ZIP Co de Phone Number [facility] [address] [place] [phone] documented in this encounter Visit Diagnoses Not on filedocumented in this encounter Additional Health Concerns Assessment Noted Time PHQ-9 Depression Total Score: 3 04/23/19 25 11:02 AM EST documented as of this encounter Care Teams Plan Examiner Relationship Specialty Start Date End Date Lara Headley MD [address] [place] [address] PCP - General Family Medicine 08/31/16 documented as of this encounter
--- OUTSIDE RECORDS SUMMARY | 2024-05-22 13:29 | XMS_ITS | Encounter Summary ---
Author Organization [employer] Address [address] [facility] 7t [place] [address] Care Team Providers Care Ammonium Sulfate Operator Name Role Phone Lara Headley MD Primary Care Provider + Reason for Visit * Reason Onset Date Comments Med Refill 05/05/2024 Encounter Details Date Type Department Care Team (Late st Contact Info) Description 05/05/2024 Refill [facility] MEDICINE [address] [place], [place] [phone] Dalia El MD [address] [place] [address] Opioid dependence, uncomplicated (CMS/HCC) Social History Tobacco [...] Description 05/25/2024 1:30 PM EDT Office Visit [facility] ADULT DENTAL [address] [place] [address] Armand Prieto DDS [address] [place] [address] 05/26/2024 10:15 AM EDT Office Visit [facility] MEDICINE [address] [place] [address] Violeta Correia MD [address] [place] [address] 05/27/2024 9:00 AM EDT Office Visit [facility] MEDICINE [address] [place] [address] Christian Arreguin MD [address] [place] [address] 06/03/2024 9:00 AM EDT Office Visit [facility] MEDICINE [address] [place] [address] Christian Arreguin MD [address] [place] [address] documented as of this encounter Goals Goal [...] documented as of this encounter Care Teams Ammonium Sulfate Operator Relationship Specialty Start Date End Date Lara Headley MD [address] [place] [address] PCP - General Family Medicine 08/31/16 documented as of this encounter
--- OUTSIDE RECORDS SUMMARY | 2024-05-22 13:29 | XMS_ITS | Encounter Summary ---
Author Organization [employer] Address [address] [facility] 7t [place] [address] Care Team Providers Care Integrity Assessor Name Role Phone Lara Headley MD Primary Care Provider + Encounter Details Date Type Department Care Team (Latest Contact Info) Description 05/04/2024 Travel Social History Tobacco Use Types Packs/Day [...] Description 05/25/2024 1:30 PM EDT Office Visit [facility] [address] [place] [address] Armand Prieto DDS [address] [place] [address] 05/26/2024 10:15 AM EDT Office Visit [facility] MED[facility] [address] [place] [address] Violeta Corriea MD [address] [place] [address] 05/27/2024 9:00 AM EDT Office Visit [address] [address] Christian Arreguin MD [address] [place] [address] 06/03/2024 9:00 AM EDT Office Visit [address] [address] Christian Arreguin MD [address] [place] [address] documented as of this encounter Goals Goal Patient Goal Type Associated Problems Recent Progress Patient-Stated? Author Keep your medical appointments Lifestyle No Richard Woods RN documented as of this encounter Visit Diagnoses Not on filedocumented in this encounter Additional Health Concerns Assessment Noted Time PHQ-9 Depression Total Score: 3 04/23/19 25 11:02 AM EST documented as of this encounter Care Teams Integrity Assessor Relationship Specialty Start Date End Date Lara Headley MD [address] [place] [phone] PCP - General Family Medicine 08/31/16 documented as of this encounter
--- OUTSIDE RECORDS SUMMARY | 2024-05-22 13:29 | XMS_ITS | Encounter Summary ---
Author Organization [employer] Address 75 [facility] 7t [place] [address] Care Team Providers Care Social Media Executive Name Role Phone Lara Headley MD Primary Care Provider + Reason for Visit * Reason Comments GBAT Encounter Details Date Type Department Care Team (Latest Contact Info) Description 05/06/2024 9:00 AM EDT Office Visit [facility] [address] [place], [place] [phone] Christian Arreguin MD 230 [place] [address] Opioid dependence, uncomplicated (CMS/HCC) (Primary Dx) Social [...] the past 12 months, has t he [employer] gas, oil or water company threatened to [...] as of this encounter Progress Notes * Christian Arreguin MD - 05/06/2024 9:00 AM EDT Patient with OUD presents for GBAT visit. Patient on current Suboxone dose of 16/4 mg on a 1-week schedule. Induction date: 02/10/24. LFTs done 02/11/24. Patient actively enrolled in behavioral health services, integrated therapist and psychiatrist. Currently followed in Dr. El's OBAT clinic. TODAY GBAT VISIT 05/06/2024 LAST UTOX (05/04/2024): POS METHADONE ONLY WAS RECENTLY ADMITTED AT [facility] Patient presents for Group-Based Opioid Treatment for OUD First GBAT visit today Reviewed the group goals, expectations and policies Consented to the group treatment options Actively participated in the group discussion with the topic of: Finding Strengths from Your Losses Following staff present at the visit: Physician, Capacitor Pack Press Operator, Team RN, Clinician, and MedicalAssistant Opportunities provided to address individual medical/medication/ concerns States doing well without cravings or relapse Review of Systems Psychiatric/Behavioral: Negative for behavioral problems and dysphoric mood. The patient is not nervous/anxious. Physical Exam Constitutional: Appearance: Normal appearance. Pulmonary: Effort: Pulmonary effort is normal. Neurological: Mental Status: She is alert. Psychiatric: Mood and Affect: Mood normal. Behavior: Behavior normal. Sudhir was seen today for gbat. Diagnoses and all orders for this visit: Opioid dependence, uncomplicated (CMS/HCC) (Primary) Patient presents for Group-Based Addiction Treatment of OUD Reviewed the group goals, expectations and policies Consented to the group treatment options Actively participated in the group discussed Future discussion topics reviewed Patient is tolerating current treatment of Buprenorphine Reviewed behavioral modification and accessing services Group counseling provided with a focus on support system, tools for achieving/maintaining recovery Reviewed barriers for these goals Discussed strategies to address when faced situations that may trigger use Mass RENAL TECHNICIAN reviewed Following staff present at the visit: Physician, Team RN, Clinician, Capacitor Pack Press Operator and Alumni Relations Manager Follow up in 1 week for the next GBAT meeting This information has been disclosed to you [...] Description 05/25/2024 1:30 PM EDT Office Visit [facility] ADULT D[facility] [address] [place] [address] Armand Prieto DDS [address] [place] [address] 05/26/2024 10:15 AM EDT Office Visit [facility] [address] [place], [place] [phone] Violeta Correia MD [address] [place], [place] [phone] 05/27/2024 9:00 AM EDT Office Visit [address] [phone] Christian Arreguin MD [address] [place] [address] [phone] 06/03/2024 9:00 AM EDT Office Visit [address] [phone] Christian Arreguin MD [address] [place] [address] [phone] documented as of this encounter Goals Goal Patient Goal Type Associated Problems Recent Progress Patient-Stated? Author Keep your medical appointments Lifestyle Richard Newberry RN documented as of this encounter Visit Diagnoses Diagnosis Opioid dependence, uncomplicated (CMS/HCC)- Primary documented in this encounter Additional Health Concerns Assessment Noted Time PHQ-9 Depression Total Score: 3 04/23/19 25 11:02 AM EST documented as of this encounter Care Teams Social Media Executive Relationship Specialty Start Date End Date Lara Headley MD [address] [place] [address] [phone] PCP - General Family Medicine 08/31/16 documented as of this encounter
--- OUTSIDE RECORDS SUMMARY | 2024-05-22 13:29 | XMS_ITS | Encounter Summary ---
Author Organization [employer] Address [address] [facility] 7t [place] [address] Care Team Providers Care Histology Teacher Name Role Phone Lara Headley MD Primary Care Provider + Reason for Visit * Reason Onset Date Comments Med Refill 05/04/2024 Encounter Details Date Type Department Care Team (Late st Contact Info) Description 05/04/2024 Refill [facility] [address] [place], [place] [phone] Richard Woods, EMILY [address] [place] [address] Opioid dependence, uncomplicated (CMS/HCC) Social History Tobacco [...] Description 05/25/2024 1:30 PM EDT Office Visit [facility] ADULT DENTAL [address] [place] [phone] Armand Prieto DDS [address] [place] [address] 05/26/2024 10:15 AM EDT Office Visit [facility] [address] [place] [address] 259[address] Violeta Correia MD [address] [place] [address] 05/27/2024 9:00 AM EDT Office Visit [facility] [address] [place] [address] Christian Arreguin MD [address] [place] [address] 06/03/2024 9:00 AM EDT Office Visit [facility] [address] [place] [address] Christian Arreguin MD [address] [place] [address] documented as of this encounter Goals Goal [...] documented as of this encounter Care Teams Histology Teacher Relationship Specialty Start Date End Date Lara Headley MD [address] [place] [address] PCP - General Family Medicine 08/31/16 documented as of this encounter
--- OUTSIDE RECORDS SUMMARY | 2024-05-22 13:29 | XMS_ITS | Encounter Summary ---
Author Organization [employer] Address 75 [facility] 7t [place] [address] Care Team Providers Care Inverter And Clipper Name Role Phone Lara Headley MD Primary Care Provider + Reason for Visit * Reason Comments OBAT Encounter Details Date Type Department Care Team (Latest Contact Info) Description 05/04/2024 1:00 PM EDT Clinical Support [facility] [address] [place], [place] [phone] Richard Woods, RN [address] [place] [address] Opioid dependence, uncomplicated (CMS/HCC) (Primary Dx) Social [...] Progress Notes * Richard Woods RN - 05/04/2024 1:00 PM EDT Patient here today for Opioid Dependence RV. Patient on current Suboxone dose of 16/4 mg on a 1 week schedule. Patient has been in the program for 12 weeks. Induction date: 02/10/24. LFTs done 02/11/24. Patient actively enrolled in behavioral health services, integrated therapist and psychiatrist Dr. Stuart. JARRETT MCKEON reviewed by provider. Last PCP appt 11/25/23. Smoking status: former smoker. Last Visit -04/23/24 POS:ARISTEO ONLY Subjective Patient ID: Sudhir Morales [...] fentanyl about three days ago. Denies SI. TODAY 05/04/24 +MTD only Sudhir is here after missing appt a few days ago. States he was in [facility] psych unit. States he was given methadone there. Last dose 3 days ago. Reports he wants to resume Suboxone. Will re assess progress at visit in 3 days. Plan: Suboxone dosing schedule of 16/4 mg daily and management of side effects reviewed. Recovery support, harm reduction (including Narcan), and behavioral health attendance reviewed. Appointment for 3 days given. Patient expressed understanding and agreement with [...] Description 05/25/2024 1:30 PM EDT Office Visit [facility] ADULT DENT[facility] [address] [place] [address] Armand Prieto DDS [address] [place] [address] 05/26/2024 10:15 AM EDT Office Visit [facility] [address] [place] [address] Violeta Correia MD 230 [place] [address] 05/27/2024 9:00 AM EDT Office Visit [address] [phone] Christian Arreguin MD [address] [place], [place] [phone] 06/03/2024 9:00 AM EDT Office Visit [facility] [address] [place], [place] [phone] Christian Arreguin MD [address] [place], [place] [phone] documented as of this encounter Goals Goal Patient Goal Type Associated Problems Recent Progress Patient-Stated? Author Keep your medical appointments Lifestyle No Richard Woods RN documented as of this encounter Procedures Procedure Name Priority Date/Time Associated Diagnosis Comments POCT RIN-14 URINE DRUG SCREEN Routine 05/04/2024 1:08 PM EDT Opioid dependence, uncomplicated (CMS/HCC) documented in this encounter Results * POCT RIN-14 Urine Drug Screen (05/04/2024 1:08 PM EDT) THC Negative Cocaine Screen, Urine Negative Opiate Screen, Urine Negative Methamphetamine Screen Urine Negative Amphetamine Screen, Urine Negative Benzodiazepines Screen, Urine Negative Barbiturate Screen, Urine Negative Methadone Screen, Urine Positive Buprenophine Screen, Urine Negative TCA, Urine Negative MDMA Urine Negative ng/mL Oxycodone Screen, Urine Negative Phencyclidine (PCP), Urine Negative Propoxyphene, Urine Negative Fentanyl, Urine Negative Urine Urine specimen obtained by clean catch procedure / Unknown 05/04/2024 1:08 PM EDT Dalia El MD POINT OF CARE TEST ENTER/ARIELLE T ORDERABLES Final Result documented in this encounter Visit Diagnoses Diagnosis Opioid dependence, uncomplicated (CMS/HCC)- Primary documented in this encounter Additional Health Concerns Assessment Noted Time PHQ-9 Depression Total Score: 3 04/23/19 25 11:02 AM EST documented as of this encounter Care Teams Inverter And Clipper Relationship Specialty Start Date End Date Lara Headley MD [address] [place] [address] [phone] PCP - General Family Medicine 08/31/16 documented as of this encounter
--- OUTSIDE RECORDS SUMMARY | 2024-05-22 13:29 | XMS_ITS | Encounter Summary ---
Author Organization [employer] Address 75 [facility] 7t [place] [address] Care Team Providers Care Home Organizer Name Role Phone Lara Headley MD Primary Care Provider + Reason for Visit * Reason Comments Care Coordination Encounter Details Date Type Department Care Team ([facility] st Contact Info) Description 05/04/2024 Patient Outreach [facility] [address] [place], [place] [phone] Lara Headley MD 230 [place] [address] Care Coordination Social History Tobacco Use Types Packs/Day Years [...] encounter Progress Notes * Sangeetha Richardson - 05/04/2024 2:53 PM EDT CHW Sangeetha Richardson and CATHY Ruby received incoming phone call from Natacha ( [facility] [place] Superintendent Job. She called with plan of care. Per Natacha patient have a pending discharge day. Plan is to get patient connected to a psychiatrist. Natacha was informed upcoming appointments. Natacha Provided patient new contact #. Was updated in system. CHW will reach out within 5 days. documented in this encounter Plan of Treatment Upcoming Encounters Date Type Department Care Team (Late st Contact Info) Description 05/25/2024 1:30 PM EDT Office Visit [facility] ADULT DENTAL [address] [place] [address] Armand Prieto DDS [address] [place] [address] 05/26/2024 10:15 AM EDT Office Visit [facility] MED[facility] [address] [place], [place] [phone] Violeta Correia MD [address] [place] [address] 05/27/2024 9:00 AM EDT Office Visit [address] [address] Christian Arreguin MD [address] [place] [address] [phone] 06/03/2024 9:00 AM EDT Office Visit [address] [phone] Christian Arreguin MD [address] [place] [address] [phone] documented as of this encounter Goals Goal Patient Goal Type Associated Problems Recent Progress Patient-Stated? Author Keep your medical appointments Lifestyle Richard Newberry RN documented as of this encounter Visit Diagnoses Not on filedocumented in this encounter Additional Health Concerns Assessment Noted Time PHQ-9 Depression Total Score: 3 04/23/19 25 11:02 AM EST documented as of this encounter Care Teams Home Organizer Relationship Specialty Start Date End Date Lara Headley MD [address] [place] [address] [phone] PCP - General Family Medicine 08/31/16 documented as of this encounter
--- OUTSIDE RECORDS SUMMARY | 2024-05-22 13:29 | XMS_ITS | Encounter Summary ---
Author Organization [employer] Address 75 [facility] 7t [place] [address] Care Team Providers Care Cub Reporter Name Role Phone Lara Headley MD Primary Care Provider + Reason for Visit * Reason Comments OBAT Encounter Details Date Type Department Care Team (Latest Contact Info) Description 05/07/2024 2:30 PM EDT Office Visit [facility] [address] [place], [place] [phone] Dalia El MD 230 [place], [place] [phone] Opioid dependence, uncomplicated (CMS/HCC) (Primary Dx) Social [...] before you got money to buy more: Often true 05/08/2024 Within the past 12 months,th e food you bought just didn't last and you didn't have enough money to get more: Often true Transportation Answer Date Recorded In the past 12 months, has l ack of transportation kept you from medical appts, meetings, work or from getting things needed for daily living? Yes, it has kept me from non-medical meetings, work, or getting things that I need;Yes, it has kept me from medical appointments or getting medications. 05/08/2024 Utilities Answer Date Recorded In the past [...] Progress Notes * Dalia El MD - 05/07/2024 2:30 PM EDT Patient here today for Opioid Dependence RV. Patient on current Suboxone dose of 16/4 mg on a 1 week schedule. Patient has been in the program for 13 weeks. Induction date: 02/10/24. LFTs done 02/11/24. Patient actively enrolled in behavioral health services, integrated therapist and psychiatrist Dr. Stuart. JARRETT PAT reviewed by provider. Last PCP appt 11/25/23. Smoking status: former smoker. Last Visit 05/04/24 +MTD only Sudhir is here after missing appt a few days ago. States he was in [facility] psych unit. States he was given methadone there. Last dose 3 days ago. Reports he wants to resume Suboxone. Will re assess progress at visit in 3 days. TODAY-05/07/24 POS:ARISTEO NEG:BUP Subjective Patient ID: Sudhir Morales is a 48 y.o. male who presents for OBAT. Sudhir is being seen for OBAT services. He denies using opioids. States that he used cocaine two days ago. Insists that he's taking Suboxone as prescribed (multiple urine tests show negative bup, positive methadone). I reminded Sudhir that he did well in his recovery when he was living in a sober house and taking methadone, and that he maintained his recovery for over a year. He states that he does not want to goback to methadone. Attended the GBOT group yesterday and enjoyed it. He is open to switching to this clinic. Review of Systems Psychiatric/Behavioral: Negative for dysphoric mood. The patient is not nervous/anxious. Objective Physical Exam Constitutional: Appearance: Normal appearance. She is well-developed. Skin: General: Skin is warm and dry. Neurological: General: No focal deficit present. Mental Status: She is alert and oriented to person, place, and time. Mental status is at baseline. Psychiatric: Mood and Affect: Mood normal. Behavior: Behavior normal. Assessment/Plan Diagnoses and all orders for this visit: Opioid dependence, uncomplicated ([facility]) Counseling provided RE: importance of multiple sources of support for achieving and maintaining recovery. Counseling RE: harm reduction measures, ie, not using alone, the use of clean needles/equipment, Narcan. Discussed strategies to use when confronted with situations that trigger use. Continue current Suboxone dose. Sudhir will switch to the Saturday GBOT clinic. Follow up one week. - POCT RIN-14 [...] Office Visit [facility] D[facility] [address] [place] [address] Armand Prieto DDS [address] [place] [address] 05/26/2024 10:15 AM EDT Office Visit [facility] [address] [place] [address] Violeta Correia MD [address] [place] [address] 05/27/2024 9:00 AM EDT Office Visit [address] [address] Christian Arreguin MD [address] [place] [address] 06/03/2024 9:00 AM EDT Office Visit [address] [address] Christian Arreguin MD [address] [place] [phone] documented as of this encounter Goals Goal Patient Goal Type Associated Problems Recent Progress Patient-Stated? Author Keep your medical appointments Lifestyle Richard Newberry RN documented as of this encounter Procedures Procedure Name Priority Date/Time Associated Diagnosis Comments POCT RIN-14 URINE DRUG SCREEN Routine 05/07/2024 2:03 PM EDT Opioid dependence, uncomplicated ([facility]/HCC) documented in this encounter Results * POCT RIN-14 Urine Drug Screen (05/07/2024 2:03 PM EDT) THC Negative Cocaine Screen, Urine Positive Opiate [...] obtained by clean catch procedure / Unknown 05/07/2024 2:03 PM EDT Dalia El MD POINT OF CARE TEST ENTER/ARIELLE T ORDERABLES Final Result documented in this encounter Visit Diagnoses Diagnosis Opioid dependence, uncomplicated (CMS/HCC)- Primary documented in this encounter Additional Health Concerns Assessment Noted Time PHQ-9 Depression Total Score: 3 04/23/19 25 11:02 AM EST documented as of this encounter Care Teams Cub Reporter Relationship Specialty Start Date End Date Lara Headley MD [address] [place] [phone] PCP - General Family Medicine 08/31/16 documented as of this encounter
--- OUTSIDE RECORDS SUMMARY | 2024-05-22 13:29 | XMS_ITS | Encounter Summary ---
Author Organization [employer] Address 75 [facility] 7[address] [place] [address] Care Team Providers Care Medical Physics Researcher Name Role Phone Lara Headley MD Primary Care Provider + Reason for Visit * Reason Onset Date Comments Chart prep 04/28/2024 Encounter Details Date Type Department Care Team ([facility] st Contact Info) Description 04/28/2024 Telephone [facility] [address] [place], [place] [phone] Lara Headley MD [address] [place], [place] [phone] Chart prep Social History Tobacco Use Types Packs/Day Years [...] Telephone Encounter - Gaby Black [place] - 04/28/2024 9:30 AM EST Chart Prep Labs: done Images: done Vaccines due: yes Referrals: no showed on 12/17/23 Screenings: colonoscopy Overdue care gaps: N/A documented in this encounter Plan of Treatment Upcoming Encounters Date Type Department Care Team (Late st Contact Info) Description 05/25/2024 1:30 PM EDT Office Visit [facility] ADULT DENTAL [address] [place] [address] Armand Prieto DDS [address] [place] [address] 05/26/2024 10:15 AM EDT Office Visit [facility] [address] [place] [phone] Violeta Correia MD [address] [place] [address] 05/27/2024 9:00 AM EDT Office Visit [address] [phone] Christian Arreguin MD [address] [place] [phone] 06/03/2024 9:00 AM EDT Office Visit [address] [address] Christian Arreguin MD [address] [place] [phone] documented as of this encounter Visit Diagnoses Not on filedocumented in this encounter Additional Health Concerns Assessment Noted Time PHQ-9 Depression Total Score: 3 04/23/19 25 11:02 AM EST documented as of this encounter Care Teams Medical Physics Researcher Relationship Specialty Start Date End Date Lara Headley MD [address] [place] [phone] PCP - General Family Medicine 08/31/16 documented as of this encounter
--- OUTSIDE RECORDS SUMMARY | 2024-05-22 13:29 | XMS_ITS | Encounter Summary ---
Author Organization [employer] Address 75 [facility] 7t [place] [address] Care Team Providers Care Payroll Bookkeeper Name Role Phone Lara Headley MD Primary Care Provider + Reason for Visit * Reason Comments Recovery Supports Encounter Details Date Type Department Care Team ([facility] st Contact Info) Description 05/05/2024 Patient Outreach [facility] MEDICINE [address] [place], [place] [phone] Evaristo Canchola [address] [place] [address] Recovery Supports Social History Tobacco Use Types [...] encounter Progress Notes * Evaristo Canchola - 05/05/2024 11:59 PM EDT I met with Sudhir today. Setting: in person at [facility] Recovery Wellness Goals worked on: Physical Health/Mental Health, Social Stability, and Spiritual Wellness Action taken/next steps: Attended recovery support group Additional comments: Participant attended a group session centered on recovery topics, where members engaged in open discussion and offered mutual support. Evaristo Canchola documented in this encounter Plan of Treatment Upcoming Encounters Date Type Department Care Team (Late st Contact Info) Description 05/25/2024 1:30 PM EDT Office Visit [facility] ADULT DENTAL [address] [place] [address] Armand Prieto DDS [address] [place] [address] 05/26/2024 10:15 AM EDT Office Visit [facility] MEDICINE [address] [place] [address] Violeta Correia MD [address] [place] [phone] 05/27/2024 9:00 AM EDT Office Visit [address] [phone] Christian Arreguin MD [address] [place] [address] [phone] 06/03/2024 9:00 AM EDT Office Visit [address] [phone] Christian Arreguin MD [address] [place] [address] [phone] documented as of this encounter Goals Goal Patient Goal Type Associated Problems Recent Progress Patient-Stated? Author Keep your medical appointments Lifestyle No Richard Woods, EMILY documented as of this encounter Visit Diagnoses Not on filedocumented in this encounter Additional Health Concerns Assessment Noted Time PHQ-9 Depression Total Score: 3 04/23/19 25 11:02 AM EST documented as of this encounter Care Teams Payroll Bookkeeper Relationship Specialty Start Date End Date Lara Headley MD [address] [place] [address] [phone] PCP - General Family Medicine 08/31/16 documented as of this encounter
--- OUTSIDE RECORDS SUMMARY | 2024-05-22 13:29 | XMS_ITS | Encounter Summary ---
Author Organization [employer] Address [address] [facility] 7t [place] [address] Care Team Providers Care Harvest Contractor Name Role Phone Lara Headley MD Primary Care Provider + Reason for Visit * Reason Comments Care Coordination Outreach Encounter Details Date Type Department Care Team (Latest Contact Info) Description 04/29/2024 Patient Outreach [facility] CHC MED & PEDS [address] [place], [place] [phone] Lara Headley MD [address] [place] [address] Care Coordination (Outreach) Social History Tobacco Use Types Packs/Day Years [...] encounter Progress Notes * Sangeetha Richardson - 04/29/2024 3:47 PM EST CHW Sangeetha Richardson placed outbound call to [facility] for discharge coordination as patient was admitted on 04/27/24 CHW was connect to patient's Wound Care Coordinator Natacha. There no plan of discharge at the moment. Natacha will update chw when there a plan of discharge documented in this encounter Plan of Treatment Upcoming Encounters Date Type Department Care Team (Late st Contact Info) Description 05/25/2024 1:30 PM EDT Office Visit [facility] ADULT DENTAL [address] [place] [address] Armand Prieto DDS [address] [place] [address] 05/26/2024 10:15 AM EDT Office Visit [facility] MEDICINE [address] [place] [address] Violeta Correia MD [address] [place] [address] 05/27/2024 9:00 AM EDT Office Visit [facility] MEDICINE [address] [place] [address] Christian Arreguin MD [address] [place] [address] 06/03/2024 9:00 AM EDT Office Visit [address] [address] Christian Arreguin MD [address] [place] [address] documented as of this encounter Visit Diagnoses Not on filedocumented in this encounter Additional Health Concerns Assessment Noted Time PHQ-9 Depression Total Score: 3 04/23/19 25 11:02 AM EST documented as of this encounter Care Teams Harvest Contractor Relationship Specialty Start Date End Date Lara Headley MD [address] [place] [address] PCP - General Family Medicine 08/31/16 documented as of this encounter
--- OUTSIDE RECORDS SUMMARY | 2024-05-22 13:30 | XMS_ITS | Encounter Summary ---
Author Organization [employer] Address 75 [facility] 7t [place] [address] Care Team Providers Care Senior Trial Attorney Name Role Phone Lara Headley MD Primary Care Provider + Reason for Visit * Reason Comments Med Refill Encounter Details Date Type Department Care Team ([facility] st Contact Info) Description 12/28/2022 Refill [facility] MEDICINE 230 [place], [place] [phone] Dalia El MD 230 [place] [address] Social History Tobacco Use Types Packs/Day Years [...] Description 05/25/2024 1:30 PM EDT Office Visit [facility] ADULT DENTAL [address] [place] [address] Armand Prieto DDS [address] [place] [address] 05/26/2024 10:15 AM EDT Office Visit [facility] MEDICINE [address] [place] [address] Violeta Correia MD [address] [place] [address] 05/27/2024 9:00 AM EDT Office Visit [address] [address] Christian Arreguin MD [address] [place] [address] 06/03/2024 9:00 AM EDT Office Visit [address] [address] Christian Arreguin MD [address] [place] [address] documented as of this encounter Visit Diagnoses Not on filedocumented in this encounter Additional Health Concerns Assessment Noted Time PHQ-9 Depression Total Score: 4 09/04/19 23 12:55 PM EDT documented as of this encounter Care Teams Senior Trial Attorney Relationship Specialty Start Date End Date Lara Headley MD [address] [place] [address] [place] [address] PCP - General Family Medicine 08/31/16 documented as of this encounter
--- OUTSIDE RECORDS SUMMARY | 2024-05-22 13:30 | XMS_ITS | Encounter Summary ---
Author Organization [employer] Address [address] [facility] 7t [place] [address] Care Team Providers Care Mission Planner Name Role Phone Lara Headley MD Primary Care Provider + Reason for Visit * Reason Onset Date Comments Med Refill 05/20/2024 Encounter Details Date Type Department Care Team (Late st Contact Info) Description 05/20/2024 Refill [facility] MEDICINE 230 [place] [address] Chanel Thrasher RN Opioid dependence, uncomplicated (CMS/HCC) Social History Tobacco Use Types Packs/Day Years Used Date Smoking Tobacco: Never Passive Smoke Exposure: Never Smokeless Tobacco: Never Alcohol Use Standard Drinks/Week Comments Never 0 (1 standard drink = 0.6 oz pur e alcohol) Alcohol Answer Date Recorded How often do you have a drink containing alcohol ? 1 05/18/2024 How many drinks containing a lcohol do you have on a typical day when you are drinking? 2 05/18/2024 How often do you have six or more drinks on one occasion? 2 05/18/2024 Depression Answer Date Recorded Patient Health Questionnaire-9 [...] the past 12 months, has t he [employer], [employer], oil or water [employer] threatened to shut off services in your [...] Description 05/25/2024 1:30 PM EDT Office Visit [facility] ADULT DENTAL [address] [place] [address] Armand Prieto DDS [address] [place] [address] 05/26/2024 10:15 AM EDT Office Visit [facility] MEDICINE [address] [place] [address] Violeta Correia MD [address] [place] [address] 05/27/2024 9:00 AM EDT Office Visit [facility] MEDICINE [address] [place] [address] Chrsitian Arreguin MD [address] [place] [address] 06/03/2024 9:00 AM EDT Office Visit [facility] MEDICINE 230 [place] [address] Christian Arreguin MD 230 [place] [address] documented as of this encounter Goals Goal Patient Goal Type Associated Problems Recent Progress Patient-Stated? Author Take buprenorphine as prescribed General Yes Chanel Thrasher, EMILY Keep your medical appointments Lifestyle No Richard Woods RN documented as of this encounter Visit Diagnoses Diagnosis Opioid dependence, uncomplicated (CMS/HCC) documented in this encounter Additional Health Concerns Assessment Noted Time PHQ-9 Depression Total Score: 3 04/23/19 25 11:02 AM EST documented as of this encounter Care Teams Mission Planner Relationship Specialty Start Date End Date Lara Headley MD [address] [place] [phone] PCP - General Family Medicine 08/31/16 documented as of this encounter
--- OUTSIDE RECORDS SUMMARY | 2024-05-22 13:30 | XMS_ITS | Encounter Summary ---
Author Organization [employer] Address 75 [facility] 7t [place] [address] Care Team Providers Care Skid Road Man Name Role Phone Lara Headley MD Primary Care Provider + Reason for Visit * Reason Comments [facility] Recovery Supports Encounter Details Date Type Department Care Team ([facility] st Contact Info) Description 05/11/2024 Patient Outreach [facility] MEDICINE [address] [place] [address] Jack Tavares Recovery Supports Social History Tobacco [...] encounter Progress Notes * Jack Tavares - 05/11/2024 3:00 PM EDT I met with Sudhir today. Setting: in person at [facility] Recovery Wellness Goals worked on: Physical Health/Mental Health, Social Stability, and Spiritual Wellness Action taken/next steps: Attended recovery support group Additional comments: Participant attended a group session centered on recovery topics, where members engaged in open discussion and offered mutual support. Jack Tavares documented in this encounter Plan of Treatment Upcoming Encounters Date Type Department Care Team (Late st Contact Info) Description 05/25/2024 1:30 PM EDT Office Visit [facility] ADULT DENTAL [address] [place] [address] Armand Prieto DDS [address] [place] [address] 05/26/2024 10:15 AM EDT Office Visit [facility] MEDICINE [address] [place] [address] Violeta Correia MD [address] [place] [address] 05/27/2024 9:00 AM EDT Office Visit [address] [phone] Christina Arreguin MD [address] [place] [address] [phone] 06/03/2024 9:00 AM EDT Office Visit [address] [address] Christian Arreguin MD [address] [place] [address] [phone] documented as of this encounter Goals Goal Patient Goal Type Associated Problems Recent Progress Patient-Stated? Author Keep your medical appointments Lifestyle No Richard Woods, RN documented as of this encounter Visit Diagnoses Not on filedocumented in this encounter Additional Health Concerns Assessment Noted Time PHQ-9 Depression Total Score: 3 04/23/19 25 11:02 AM EST documented as of this encounter Care Teams Skid Road Man Relationship Specialty Start Date End Date Lara Headley MD [address] [place] [address] [phone] PCP - General Family Medicine 08/31/16 documented as of this encounter
--- OUTSIDE RECORDS SUMMARY | 2024-05-22 13:30 | XMS_ITS | Encounter Summary ---
Author Organization [employer] Address 75 [facility] 7t [place] [address] Care Team Providers Care Quill Layer Name Role Phone Lara Headley MD Primary Care Provider + Reason for Visit * Reason Comments Transition Of Care (Tcm) Encounter Details Date Type Department Care Team ([facility] st Contact Info) Description 04/24/2024 Patient Outreach [facility] MEDICINE [address] [place], [place] [phone] Lara Headley MD [address] [place] [address] Transition Of Care (Tcm) Social History Tobacco [...] not included. Hospital Discharges and Admission for [facility] Type of Visit: Emergency Department Date of Admission/Visit: 04/24/24 Date of Discharge: 04/24/24 Facility: [facility] Diagnosis: Hypertension Disposition: Discharged Home Follow-Up Actions [...] discharge summary is has been requested from [facility] via fax ([phone]) confirmation page received. Review Flowsheet More data may exist [facility] Transition of Care Documentation Type of Visit Date of Admission/Visit Date of Discharge Facility Diagnosis Disposition 11/19/2023 9:05 AM Hospital Admission 11/14/2023 11/16/2023 [facility] cocaine induced KATHYA Discharged Home 11/19/2023 1:48 PM Hospital Admission 11/14/2023 11/16/2023 [facility] KATHYA Discharged Home 02/12/2024 8:25 AM Emergency Department 02/10/2024 02/10/2024 [facility] HTN, Left Without Being Seen 02/14/2024 3:11 PM Hospital Admission 02/12/2024 02/17/2024 [facility] Suicidal ideation. Depression Discharged Home 02/28/2024 8:46 AM Emergency Department 02/27/2024 9:31 pm 02/28/2024 2:35 am [facility] Chest pain, HTN, cocaine abuse Discharged Home 03/02/2024 8:41 AM Emergency Department 02/27/2024 9:31pm 02/28/2024 2:35am [facility] Headache, unspecified, Essential (primary) hypertension, Chest pain, unspecified, Cocaine abuse, uncomplicated, Poisoning by fentanyl or fentanyl analogs, accidental (unintentional), initial encounter, hypertension Discharged Home 03/02/2024 8:43 AM Emergency Department 03/02/2024 - [facility] PSYCH EVAL,SI,CRACK ARISTEO USE FROM PD STATION - 03/09/2024 10:06 AM Emergency Department 03/07/2024 3:17 am 03/07/2024 8:02 am [facility] CP Discharged Home 03/09/2024 11:00 AM Emergency Department 03/07/2024 03/07/2024 [facility] Atypical chest pain Discharged Home 03/12/2024 9:55 AM Emergency Department 03/10/2024 6:49am 03/10/2024 11:53 am [facility] SI Discharged Home 04/06/2024 9:42 AM Emergency Department 04/05/2024 - [facility] CRISIS Admitted 04/24/2024 10:38 AM Emergency Department 04/24/2024 04/24/2024 [facility] Hypertension DischargedHome Recent Visits Date Type Provider Dept 04/23/24 Office Visit Dalia El MD [facility] Medicine 04/02/24 Office Visit Dalia El MD [facility] Medicine 03/12/24 Office Visit Dalia El MD [facility] Medicine 03/05/24 Office Visit Lara Headley MD [facility] Medicine 02/10/24 Office Visit Dalia El MD [facility] Medicine 11/25/23 Office Visit Lara Headley MD [facility] Medicine 10/23/23 Office Visit Santa Maya MD [facility] Walk-In Center 09/23/23 Office Visit Lara Headley MD [facility] Medicine 06/24/23 Office Visit Lara Headley MD [facility] Medicine 04/26/23 Office Visit Lara Headley MD [facility] Medicine Showing recent visits within past 365 days with a meds authorizing provider and meeting all other requirements Future Appointments Date Type Provider Dept 04/30/24 Appointment Dalia El MD [facility] Medicine 04/30/24 Appointment Lara Headley MD [facility] Medicine 05/07/24 Appointment Dalia El MD [facility] Showing future appointments within next 150 days [...] [facility] [address] [place] [address] Armand Prieto DDS [address] [place] [address] 05/26/2024 10:15 AM EDT Office Visit [facility] MEDICINE [address] [place] [address] Violeta Correia MD [address] [place] [address] 05/27/2024 9:00 AM EDT Office Visit [address] [address] [place] [address] 06/03/2024 9:00 AM EDT Office Visit [address] [address] Christian Arreguin MD [address] [place] [address] documented as of this encounter Visit Diagnoses Not on filedocumented in this encounter Additional Health Concerns Assessment Noted Time PHQ-9 Depression Total Score: 3 04/23/19 25 11:02 AM EST documented as of this encounter Care Teams Quill Layer Relationship Specialty Start Date End Date Lara Headley MD [address] [place] [address] PCP - General Family Medicine 08/31/16 documented as of this encounter
--- OUTSIDE RECORDS SUMMARY | 2024-05-22 13:30 | XMS_ITS | Encounter Summary ---
Author Organization [employer] Address 75 [facility] 7t [place] [address] Care Team Providers Care Instrument Repairer Name Role Phone Lara Headley MD Primary Care Provider + Reason for Visit * Reason Comments GBAT Encounter Details Date Type Department Care Team (Latest Contact Info) Description 05/20/2024 9:00 AM EDT Office Visit [facility] MEDICINE 230 [place], [place] [phone] Christian Arreguin MD 230 [place] [address] Opioid dependence, uncomplicated (CMS/HCC) (Primary Dx) Social [...] Progress Notes * Christian Arreguin MD - 05/20/2024 9:00 AM EDT Patient with OUD presents for GBAT visit. Patient on current Suboxone dose of 16/4 mg on a 1-week schedule. Induction date: 02/10/24. LFTs done 02/11/24. Patient actively enrolled in behavioral health services, integrated therapist and psychiatrist. Was followed in Dr. El's OBAT clinic, but theGBAT team will assume the Rx management LAST GBAT VISIT 05/13/2024 Patient presents for Group-Based Opioid Treatment for OUD First GBAT visit today Reviewed the group goals, expectations and policies Consented to the group treatment options Actively participated in the group discussion with the topic of: How to [place] with Different Kinds of Pain Mindfulness Moment Following staff present at the visit: Tray Worker, Team RN, BH Clinician Opportunities provided to address individual medical/medication/ concerns States doing well without cravings or relapse TODAY GBAT VISIT 05/20/2024 UTOX: POS BUP, ARISTEO, MOP, TCA, FEN Patient presents for Group-Based Opioid Treatment for OUD Reviewed the group goals, expectations and policies Consented to the group treatment options Actively participated in the group discussion with the topic of: Managing Psychological Pain Mindfulness Moment Following staff present at the visit: Tray Worker, Team RN, Clinician, & Physician Opportunities provided to address individual medical/medication/ concerns [...] this visit: Opioid dependence, uncomplicated (CMS/HCC) (Primary) - POCT RIN-14 Urine Drug Screen Patient presents for Group-Based Addiction Treatment of [...] faced situations that may trigger use Mass BATTERY SERVICE TECHNICIAN reviewed Following staff present at the visit: Physician, Team RN, Clinician, Tray Worker and Cold Strip Feeder Follow up in 1 week for the [...] Description 05/25/2024 1:30 PM EDT Office Visit [facility] ADULT DENTAL [address] [place] [address] Armand Prieto DDS [address] [place] [address] 05/26/2024 10:15 AM EDT Office Visit [facility] MEDICINE [address] [place] [address] Violeta Correia MD [address] [place] [address] 05/27/2024 9:00 AM EDT Office Visit [address] [address] Christian Arreguin MD [address] [place] [address] 06/03/2024 9:00 AM EDT Office Visit [address] [address] Christian Arreguin MD [address] [place] [address] documented as of this encounter Goals Goal Patient Goal Type Associated Problems Recent Progress Patient-Stated? Author Take buprenorphine as prescribed General Yes Chanel Thrasher, EMILY Keep your medical appointments Lifestyle No Richard Woods, EMILY documented as of this encounter Procedures Procedure Name Priority Date/Time Associated Diagnosis Comments POCT RIN-14 URINE DRUG SCREEN Routine 05/20/2024 9:54 AM EDT Opioid dependence, uncomplicated ([facility]) documented in this encounter Results * POCT RIN-14 Urine Drug Screen (05/20/2024 9:54 AM EDT) THC Negative Cocaine Screen, Urine Positive Opiate Screen, Urine Positive Methamphetamine Screen Urine Negative Amphetamine Screen, Urine Negative Benzodiazepines Screen, Urine Negative Barbiturate Screen, Urine Negative Methadone Screen, Urine Negative Buprenophine Screen, Urine Positive TCA, Urine Positive MDMA Urine Negative ng/mL Oxycodone Screen, Urine Negative Phencyclidine (PCP), Urine Negative Propoxyphene, Urine Negative Fentanyl, Urine Positive Urine Urine specimen obtained by clean catch procedure / Unknown 05/20/2024 9:54 AM EDT Christian Arreguin MD POINT OF CARE TEST ENTER/EDIT OR DERABLES Final Result documented in this encounter Visit Diagnoses Diagnosis Opioid dependence, uncomplicated (CMS/HCC)- Primary documented in this encounter Additional Health Concerns Assessment Noted Time PHQ-9 Depression Total Score: 3 04/23/19 25 11:02 AM EST documented as of this encounter Care Teams Instrument Repairer Relationship Specialty Start Date End Date Lara Headley MD [address] [place] [phone] PCP - General Family Medicine 08/31/16 documented as of this encounter
--- OUTSIDE RECORDS SUMMARY | 2024-05-22 13:30 | XMS_ITS | Encounter Summary ---
Author Organization [employer] Address 75 [facility] 7t [place] [address] Care Team Providers Care Electric Meter Repairer Name Role Phone Lara Headley MD Primary Care Provider + Reason for Visit * Reason Onset Date Comments Med Refill 04/23/2024 Encounter Details Date Type Department Care Team (Late st Contact Info) Description 04/23/2024 Refill [facility] MEDICINE [address] [place], [place] [phone] Dalia El MD 230 [place] [address] Opioid dependence, uncomplicated (CMS/HCC) Social History Tobacco [...] Description 05/25/2024 1:30 PM EDT Office Visit [facility] ADULT DENTAL [address] [place] [address] Armand Prieto DDS [address] [place] [address] 05/26/2024 10:15 AM EDT Office Visit [facility] MEDICINE [address] [place] [address] Violeta Correia MD [address] [place] [address] 05/27/2024 9:00 AM EDT Office Visit [facility] MEDICINE [address] [place] [address] Christian Arreguin MD [address] [place] [address] 06/03/2024 9:00 AM EDT Office Visit [facility] MEDICINE [address] [place] [address] Christian Arreguin MD [address] [place] [address] documented as of this encounter Visit Diagnoses Diagnosis Opioid dependence, uncomplicated (CMS/HCC) documented in this encounter Additional Health Concerns Assessment Noted Time PHQ-9 Depression Total Score: 3 04/23/19 25 11:02 AM EST documented as of this encounter Care Teams Electric Meter Repairer Relationship Specialty Start Date End Date Lara Headley MD [address] [place] [address] PCP - General Family Medicine 08/31/16 documented as of this encounter
--- OUTSIDE RECORDS SUMMARY | 2024-05-22 13:30 | XMS_ITS | Encounter Summary ---
Author Organization [employer] Address 75 [facility] 7t [place] [address] Care Team Providers Care Truck Engine Assembler Name Role Phone Lara Headley MD Primary Care Provider + Encounter Details Date Type Department Care Team (Latest Contact Info) Description 05/20/2024 Travel Social History Tobacco Use Types Packs/Day [...] PM EDT Office Visit [facility] ADULT DENTAL [address] [place] [address] Armand Prieto DDS [address] [place] [address] 05/26/2024 10:15 AM EDT Office Visit [address] [address] Violeta Correia MD [address] [place] [address] 05/27/2024 9:00 AM EDT Office Visit [address] [address] Christian Arreguin MD [address] [place] [address] 06/03/2024 9:00 AM EDT Office Visit [address] [address] Christian Arreguin MD [address] [place] [address] documented as of this encounter Goals Goal [...] documented as of this encounter Care Teams Truck Engine Assembler Relationship Specialty Start Date End Date Lara Headley MD [address] [place] [address] PCP - General Family Medicine 08/31/16 documented as of this encounter
--- OUTSIDE RECORDS SUMMARY | 2024-05-22 13:30 | XMS_ITS | Encounter Summary ---
Author Organization [employer] Address 75 [facility] 7t [place] [address] Care Team Providers Care Manager Telemetry Name Role Phone Lara Headley MD Primary Care Provider + Reason for Visit * Reason Comments Care Coordination CHW outreach for SDO H-patient declined to participate Encounter Details Date Type Department Care Team (Latest Contact Info) Description 05/08/2024 Patient Outreach [facility] MED[facility]INE [address] [place] [address] [phone] Lara Headley MD [address] [place], [place] [phone] Care Coordination (CHW outreach for SDOH-patient declined to participate ) Social History Tobacco Use Types Packs/Day Years [...] as of this encounter Progress Notes * Kit Boston - 05/08/2024 11:15 AM EDT Outreach Declined - W Kit Boston, placed outbound call to patient for assistance with SDOH as a referral was received by the provider. Patient's name, and Address was confirmed. Program information was provided to the patient. Patient declined to participate in program. Provided patient with direct contact information for future reference. documented in this encounter Plan of Treatment Upcoming Encounters Date Type Department Care Team (Late st Contact Info) Description 05/25/2024 1:30 PM EDT Office Visit [facility] ADULT DENTAL [address] [place] [address] Armand Prieto DDS [address] [place], [place] [phone] 05/26/2024 10:15 AM EDT Office Visit [address] [address] Violeta Correia MD [address] [place] [address] 05/27/2024 9:00 AM EDT Office Visit [address] [address] Christian Arreguin MD [address] [place] [address] 06/03/2024 9:00 AM EDT Office Visit [address] [address] Christian Arreguin MD [address] [place] [address] [phone] documented as of this encounter Goals Goal Patient Goal Type Associated Problems Recent Progress Patient-Stated? Author Keep your medical appointments Lifestyle No Richard Woods, EMILY documented as of this encounter Visit Diagnoses Not on filedocumented in this encounter Additional Health Concerns Assessment Noted Time PHQ-9 Depression Total Score: 3 04/23/19 25 11:02 AM EST documented as of this encounter Care Teams Manager Telemetry Relationship Specialty Start Date End Date Lara Headley MD [address] [place] [phone] PCP - General Family Medicine 08/31/16 documented as of this encounter
--- OUTSIDE RECORDS SUMMARY | 2024-05-22 13:30 | XMS_ITS | Encounter Summary ---
Author Organization [employer] Address 75 [facility] 7t [place] [address] Care Team Providers Care Picker Machine Operator Name Role Phone Lara Headley MD Primary Care Provider + Encounter Details Date Type Department Care Team (Late st Contact Info) Description 05/22/2024 Orders Only GENERIC EXTERNAL DATA DEPARTMENT Provider, [...] [facility] [address] [place] [phone] Armand Prieto DDS [address] [place] [phone] 05/26/2024 10:15 AM EDT Office Visit [facility] MEDICINE [address] [place] [address] Violeta Correia MD [address] [place] [address] 05/27/2024 9:00 AM EDT Office Visit [address] [address] Christian Arreguin MD [address] [place] [phone] 06/03/2024 9:00 AM EDT Office Visit [address] [address] Christian Arreguin MD [address] [place] [phone] documented as of this encounter Goals Goal Patient Goal Type Associated Problems Recent Progress Patient-Stated? Author Take buprenorphine as prescribed General Yes Chanel Thrasher, EMILY Keep your medical appointments Lifestyle No Richard Woods RN documented as of this encounter Procedures Procedure Name Priority Date/Time Associated Diagnosis Comments DRUG MONITOR, PANEL 1, SCREEN, URINE Routine 05/22/2024 9:40 AM EDT CBC WITH AUTO DIFFERENTIAL Routine 05/22/2024 9:40 AM EDT URINALYSIS WITH REFLEX MICROSCOPIC Routine 05/22/2024 9:40 AM EDT MAGNESIUM Routine 05/22/2024 9:40 AM EDT COMPREHENSIVE METABOLIC PANEL Routine 05/22/2024 9:40 AM EDT documented in this encounter Results * Magnesium (05/22/2024 9:40 AM EDT) Magnesium 2.0 1.6 - 2.6 mg/dL [facility] 05/22/2024 9:40 AM EDT 05/22/2024 9:49 AM EDT us Generic External Data Provider LAB BLOOD ORDERAB LES Final Result [facility] [address] [place] [phone] * (ABNORMAL) Comprehensive Metabolic Panel (05/22/2024 9:40 AM EDT) Sodium 137 135 - 145 mmol/L [facility] Potassium 4.0 3.3 - 5.1 mmol/L [facility] Chloride 101 96 - 108 mmol/L [facility] Carbon Dioxide 29 22 - 29 mmol/L [facility] Anion Gap 11(L) 12 - 20 [facility] Urea Nitrogen (BUN) 21(H) 9 - 16 mg/dL [facility] Creatinine, Serum 0.91 0.5 - 1.4 mg/dL [facility] Creatinine Clr Calc Pharmacy 92.3 [facility] Comment:eGFR (calculated fro m the MDRD study equation) and eCrCl(calculated from the Cockcroft-Gault equation) are based ondifferent parameters and may not yield comparable results.If eCrCl result is absurd, please check patient'sheight/weight. Estimated Glomerular Filt Rate >60 [facility] Comment:Chronic Kidney Disea se: Estimated GFR < 60 mL/min/1.33v2Cnulnr Kidney Disease: Estimated GFR < 15 mL/min/1.73m2 Glucose 90 60 - 115 mg/dL [facility] Calcium 9.7 8.4 - 10.2 mg/dL [facility] Bilirubin, Total 0.6 0.0 - 1.0 mg/dL [facility] Aspartate Amino Transferase 40(H) 5 - 37 U/L [facility] Alanine Aminotransferase 32 0 - 40 U/L [facility] Total Protein 8.1(H) 6.5 - 8.0 g/dL [facility] Albumin Level 4.5 3.5 - 5.0 g/dL [facility] Alkaline Phosphatase 75 39 - 117 U/L [facility] 05/22/2024 9:40 AM EDT 05/22/2024 9:49 AM EDT Generic External Data Provider LAB BLOOD ORDERAB LES Final Result [facility] [address] [place] [phone] * (ABNORMAL) Drug Monitoring, Panel 1, Screen, Urine (05/22/2024 9:40 AM EDT) Opiate Screen Urine POSITIVE(A) Not Detect [facility] Comment:Opiate cut-off is 30 0 ng/mL.Positive results are unconfirmed and should not be used fornon-medical purposes. Barbiturates, Urine Not Detected Not Detect [facility] Comment:Barbiturate cut-off is 200 ng/mL.Positive results are unconfirmed and should not be used fornon-medical purposes. Phencyclidine Screen Urine Not Detected Not Detect [facility] Comment:Phencyclidine cut-of f is 25 ng/mL.Positive results are unconfirmed and should not be used fornon-medical purposes. Amphetamine Screen Urine Not Detected Not Detect [facility] Comment:Amphetamine cut-off is 1000 ng/mL.Positive results are unconfirmed and should not be used fornon-medical purposes. Benzodiazepines Screen Urine Not Detected Not Detect [facility] Comment:Benzodiazepine cut-o ff is 200 ng/mL.Positive results are unconfirmed and should not be used fornon-medical purposes. Cocaine Screen Urine POSITIVE(A) Not Detect [facility] Comment:Cocaine cut-off is 3 00 ng/mL.Positive results are unconfirmed and should not be used fornon-medical purposes. Cannabinoid Screen Urine Not Detected Not Detect [facility] Comment:Cannabinoid cut-off is 50 ng/mL.Positive results are unconfirmed and should not be used fornon-medical purposes. Methadone Screen, Urine Not Detected Not Detect ng/mL [facility] Comment:Methadone cut-off is 300 ng/mL.Positive results are unconfirmed and should not be used fornon-medical purposes. FENTANYL URINE POSITIVE(A) Not Detect [facility] Comment:Fentanyl cut-off is 1 ng/mL.Positive results are unconfirmed and should not be used fornon-medical purposes. Oxycodone Urine Screen Not Detected Not Detect ng/mL [facility] Comment:Oxycodone cut-off is 100 ng/mL.Positive results are unconfirmed and should not be used fornon-medical purposes. Buprenorphine Screen Not Detected Not Detect ng/mL [facility] Comment:Buprenorphine cut-of f is 5 ng/mL.Positive results are unconfirmed and should not be used fornon-medical purposes. 05/22/2024 9:40 AM EDT 05/22/2024 9:49 AM EDT us Generic External Data Provider LAB URINE ORDERAB LES Final Result Performing Organization Address [facility]/State/ZIP Co de Phone Number [facility] [address] [place], [place] [phone] * (ABNORMAL) CBC auto differential (05/22/2024 9:40 AM EDT) White Blood Count 5.7 4.8 - 10.8 X10*3/uL [facility] Red Blood Count 4.67 4.60 - 5.80 X10*6/uL [facility] Hemoglobin 12.2(L) 14.0 - 18.0 g/dl [facility] Hematocrit 37.7(L) 42.0 - 52.0 % [facility] Mean Corpuscular Volume 80.7 80.0 - 98.0 fL [facility] Mean Corpuscular Hemoglobin 26.1(L) 27.0 - 33.0 pg [facility] Mean Corpuscular HGB Conc 32.4 31.0 - 36.0 g/dl [facility] Red Cell Distribution Width 15.4 11.0 - 16.0 % [facility] Platelet Count 303 160 - 400 X10*3/uL [facility] Mean Platelet Volume 8.4(L) 9.4 - 12.4 fL [facility] Neutrophils Percent Auto 54.0 45 - 73 % [facility] Imm Gran Pct Auto 0.2 0.0 - 0.4 % [facility] Lymphocytes Percent Auto 30.1 20 - 40 % [facility] Monocytes Percent Auto 14.1(H) 2 - 11 % [facility] Eosinophils Percent Auto 1.1 0 - 4 % [facility] Basophils Percent Auto 0.5 0 - 2 % [facility] NRBC Pct Auto 0.0 0.0 - 0.2 /100WBC [facility] Neutrophils Absolute Auto 3.1 2.0 - 8.3 x10*3/uL [facility] Imm Gran Abs Auto 0.01 0.00 - 0.03 X10*3/uL [facility] Lymphocytes Absolute Auto 1.7 1.2 - 4.9 X10*3/uL [facility] Monocytes Absolute Auto 0.8 0.1 - 1.2 X10*3/uL [facility] Eosinophils Absolute Auto 0.1 0.0 - 0.4 X10*3/uL [facility] Basophils Absolute Auto 0.0 0.0 - 0.2 X10*3/uL [facility] NRBC Abs Auto 0.000 0.0 - 0.012 X10*3/uL [facility] 05/22/2024 9:40 AM EDT 05/22/2024 9:49 AM EDT us Generic External Data Provider LAB BLOOD ORDERAB LES Final Result Performing Organization Address [facility]/ZIP Co de Phone Number [facility] [address] [place] [phone] * Urinalysis w/reflex microscopic (05/22/2024 9:40 AM EDT) Color Urine Yellow [facility] Appearance Urine Clear [facility] PH 7.0 5.0 - 9.0 [facility] Glucose Urine UA Negative Negative mg/dL [facility] Urine Blood Negative Negative [facility] Specific [place] - Urine 1.020 1.005 - 1.025 [facility] Urine Protein Trace Neg-Trace mg/dL [facility] Urine Ketones 15 Negative mg/dL [facility] Nitrite Urine Negative Negative [facility] Leukocyte Esterase Urine Negative Negative [facility] 05/22/2024 9:40 AM EDT 05/22/2024 9:49 AM EDT Narrative [facility] - 05/22/2024 9:55 AM EDT [id number], Clean [employer] us Generic External Data Provider LAB URINE ORDERAB LES Final Result Performing Organization Address City/[facility]/ZIP Co de Phone Number [facility] [address] [place] [phone] documented in this encounter Visit Diagnoses Not on filedocumented in this encounter Additional Health Concerns Assessment Noted Time PHQ-9 Depression Total Score: 3 04/23/19 25 11:02 AM EST documented as of this encounter Care Teams Picker Machine Operator Relationship Specialty Start Date End Date Lara Headley MD [address] [place] [address] PCP - General Family Medicine 08/31/16 documented as of this encounter
--- OUTSIDE RECORDS SUMMARY | 2024-05-22 13:30 | XMS_ITS | Encounter Summary ---
Author Organization [employer] Address 75 [facility] 7t [place] [address] Care Team Providers Care Business Insight And Analytics Manager Name Role Phone Lara Headley MD Primary Care Provider + Reason for Visit * Reason Comments [facility] Recovery Supports Encounter Details Date Type Department Care Team ([facility] st Contact Info) Description 05/18/2024 Patient Outreach [facility] MEDICINE [address] [place] [address] Jack Tavares Recovery Supports Social History Tobacco [...] encounter Progress Notes * Jack Tavares - 05/18/2024 11:59 PM EDT I met with Sudhir today. Setting: in person at [facility] Recovery Wellness Goals worked on: Social Stability Action taken/next steps: Attended alcohol and drug free activity Additional comments: The participant was at the recovery center today. Jack Tavares documented in this encounter Plan of Treatment Upcoming Encounters Date Type Department Care Team (Late st Contact Info) Description 05/25/2024 1:30 PM EDT Office Visit [facility] ADULT DENTAL [address] [place] [address] Armand Prieto DDS [address] [place] [address] 05/26/2024 10:15 AM EDT Office Visit [facility] MED[facility] [address] [place] [address] Violeta Correia MD [address] [place] [address] 05/27/2024 9:00 AM EDT Office Visit [address] [address] Christian Arreguin MD [address] [place], [place] [phone] 06/03/2024 9:00 AM EDT Office Visit [facility] [address] [place] [address] [phone] Christian Arreguin MD [address] [place], [place] [phone] documented as of this encounter Goals Goal Patient Goal Type Associated Problems Recent Progress Patient-Stated? Author Take buprenorphine as prescribed General Yes Chanel Thrasher, RN Keep your medical appointments Lifestyle No Richard Woods, EMILY documented as of this encounter Visit Diagnoses Not on filedocumented in this encounter Additional Health Concerns Assessment Noted Time PHQ-9 Depression Total Score: 3 04/23/19 25 11:02 AM EST documented as of this encounter Care Teams Business Insight And Analytics Manager Relationship Specialty Start Date End Date Lara Headley MD [address] [place] [address] [phone] PCP - General Family Medicine 08/31/16 documented as of this encounter
--- OUTSIDE RECORDS SUMMARY | 2024-05-22 13:30 | XMS_ITS | Encounter Summary ---
Author Organization [employer] Address 75 [facility] 7t [place] [address] Care Team Providers Care Exhaust Equipment Operator Name Role Phone Lara Headley MD Primary Care Provider + Reason for Visit * Reason Comments RC Recovery Supports Encounter Details Date Type Department Care Team ([facility] st Contact Info) Description 04/23/2024 Patient Outreach [facility] [address] [place] [address] Sharif Rider Recovery Supports Social History Tobacco Use Types [...] 11:13 AM EST I met with Sudhir mccrary. Setting: in person at [facility] Recovery Wellness Goals worked on: Physical Health/Mental [...] Description 05/25/2024 1:30 PM EDT Office Visit [facility] ADULT DENT[facility] [address] [place] [address] Armand Prieto DDS [address] [place] [address] 05/26/2024 10:15 AM EDT Office Visit [facility] [address] [place] [address] Violeta Correia MD [address] [place] [address] 05/27/2024 9:00 AM EDT Office Visit [facility] [address] [place] [address] Christian Arreguin MD [address] [place] [address] 06/03/2024 9:00 AM EDT Office Visit [facility] [address] [place] [address] Christian Arreguin MD [address] [place] [address] documented as of this encounter Visit Diagnoses Not on filedocumented in this encounter Additional Health Concerns Assessment Noted Time PHQ-9 Depression Total Score: 3 04/23/19 25 11:02 AM EST documented as of this encounter Care Teams Exhaust Equipment Operator Relationship Specialty Start Date End Date Lara Headley MD [address] [place] [phone] PCP - General Family Medicine 08/31/16 documented as of this encounter
--- OUTSIDE RECORDS SUMMARY | 2024-05-22 13:30 | XMS_ITS | Encounter Summary ---
Author Organization [employer] Address 75 [facility] 7t [place] [address] Care Team Providers Care Product Support Representative Name Role Phone Lara Headley MD Primary Care Provider + Encounter Details Date Type Department Care Team ([facility] st Contact Info) Description 04/23/2024 Telephone [facility] MED[facility]INE [address] [place], [place] [phone] Lara Headley MD [address] [place], [place] [phone] Social History Tobacco Use Types Packs/Day Years [...] Description 05/25/2024 1:30 PM EDT Office Visit [facility] ADULT DENTAL [address] [place] [address] Armand Prieto DDS [address] [place] [address] 05/26/2024 10:15 AM EDT Office Visit [facility] MED[facility] [address] [place] [address] Violeta Correia MD [address] [place] [address] 05/27/2024 9:00 AM EDT Office Visit [address] [address] Christian Arreguin MD [address] [place] [address] 06/03/2024 9:00 AM EDT Office Visit [address] [address] Christian Arreguin MD [address] [place] [address] documented as of this encounter Visit Diagnoses Not on filedocumented in this encounter Additional Health Concerns Assessment Noted Time PHQ-9 Depression Total Score: 3 04/23/19 25 11:02 AM EST documented as of this encounter Care Teams Product Support Representative Relationship Specialty Start Date End Date Lara Headley MD [address] [place] [phone] PCP - General Family Medicine 08/31/16 documented as of this encounter
--- OUTSIDE RECORDS SUMMARY | 2024-05-22 13:30 | XMS_ITS | Encounter Summary ---
Author Organization [employer] Address 75 [facility] 7t [place] [address] Care Team Providers Care Sock Lining Stitcher Name Role Phone Lara Headley MD Primary Care Provider + Reason for Visit * Reason Onset Date Comments Med Refill 05/11/2024 Encounter Details Date Type Department Care Team (Late st Contact Info) Description 05/11/2024 Refill [facility] MED[facility] [address] [place] [address] Chanel Thrasher RN Opioid dependence, uncomplicated (CMS/HCC) [...] the past 12 months, has t he [employer] [place], oil or water [employer] threatened to shut off services in your [...] Description 05/25/2024 1:30 PM EDT Office Visit [facility] ADULT DENTAL [address] [place] [address] Armand Prieto DDS [address] [place] [address] 05/26/2024 10:15 AM EDT Office Visit [facility] [address] [place] [address] Violeta Correia MD [address] [place] [phone] 05/27/2024 9:00 AM EDT Office Visit [facility] [address] [place] [address] Christian Arreguin MD [address] [place] [phone] 06/03/2024 9:00 AM EDT Office Visit [facility] [address] [place] [address] Christian Arreguin MD [address] [place] [address] documented as of this encounter Goals Goal [...] documented as of this encounter Care Teams Sock Lining Stitcher Relationship Specialty Start Date End Date Lara Headley MD [address] [place] [address] PCP - General Family Medicine 08/31/16 documented as of this encounter
--- OUTSIDE RECORDS SUMMARY | 2024-05-22 13:30 | XMS_ITS | Encounter Summary ---
Author Organization [employer] Address [address] [facility] 7t [place] [address] Care Team Providers Care Welt Drawer Name Role Phone Lara Headley MD Primary Care Provider + Reason for Visit * Reason Comments GBOT Encounter Details Date Type Department Care Team (Latest Contact Info) Description 05/13/2024 9:00 AM EDT Clinical Support [facility] [address] [place] [phone] Chanel Thrasher RN Opioid dependence, uncomplicated (CMS/HCC) (Primary Dx) Social [...] the past 12 months, has t he [employer], [employer], oil or water [employer] threatened to shut off services in your [...] as of this encounter Progress Notes * Chanel Thrasher RN - 05/13/2024 9:00 AM EDT Patient with OUD presents for GBAT visit. Patient on current Suboxone dose of 16/4 mg on a 1-week schedule. Induction date: 02/10/24. LFTs done 02/11/24. Patient actively enrolled in behavioral health services, integrated therapist and psychiatrist. Currently followed in Dr. El's OBAT clinic. LAST GBAT VISIT 05/06/2024 LAST UTOX (05/04/2024): POS METHADONE ONLY WAS RECENTLY ADMITTED AT [facility] Patient presents for Group-Based Opioid Treatment for OUD First GBAT visit today Reviewed the group goals, expectations and policies Consented to the group treatment options Actively participated in the group discussion with the topic of: Finding Strengths from Your Losses Following staff present at the visit: Physician, Hostess Host, Team RN, Clinician, and MedicalAssistant Opportunities provided to address individual medical/medication/ concerns States doing well without cravings or relapse THIS GBOT VISIT: 05/13/2024 Patient presents for Group-Based Opioid Treatment for OUD First GBAT visit today Reviewed the group goals, expectations and policies Consented to the group treatment options Actively participated in the group discussion with the topic of: How to [place] with Different Kinds of Pain Mindfulness Moment Following staff present at the visit: Hostess Host, Team RN, Clinician Opportunities provided to address individual medical/medication/ concerns States doing well without cravings or relapse This information has been disclosed to you [...] Description 05/25/2024 1:30 PM EDT Office Visit [facility] [address] [place] [address] Amrand Prieto DDS 230 [place] [address] 05/26/2024 10:15 AM EDT Office Visit [facility] [address] [place] [address] 24642 Violeta Correia MD 230 [place] [address] 05/27/2024 9:00 AM EDT Office Visit [address] [address] Christian Arreguin MD [address] [place] [address] [phone] 06/03/2024 9:00 AM EDT Office Visit [facility] 230 [place] [address] Christain Arreguin MD [address] [place], [place] [phone] documented as of this encounter Goals Goal Patient Goal Type Associated Problems Recent Progress Patient-Stated? Author Take buprenorphine as prescribed General Yes Chanel Thrasher, EMILY Keep your medical appointments Lifestyle No Richard Woods, EMILY documented as of this encounter Procedures Procedure Name Priority Date/Time Associated Diagnosis Comments POCT RIN-14 URINE DRUG SCREEN Routine 05/13/2024 9:09 AM EDT Opioid dependence, uncomplicated (CMS/HCC) documented in this encounter Results * POCT RIN-14 Urine Drug Screen (05/13/2024 9:09 AM EDT) THC Positive Cocaine Screen, Urine Positive Opiate Screen, Urine Positive Methamphetamine Screen Urine Negative Amphetamine Screen, Urine Negative Benzodiazepines Screen, Urine Negative Barbiturate Screen, Urine Negative Methadone Screen, Urine Positive Buprenophine Screen, Urine Negative TCA, Urine Positive MDMA Urine Negative ng/mL Oxycodone Screen, Urine Negative Phencyclidine (PCP), Urine Negative Propoxyphene, Urine Negative Fentanyl, Urine Positive Urine Urine specimen obtained by clean catch procedure / Unknown 05/13/2024 9:09 AM EDT Temo Deleon MD POINT OF CARE TEST ENTER/EDIT OR DERABLES Final Result documented in this encounter Visit Diagnoses Diagnosis Opioid dependence, uncomplicated (CMS/HCC)- Primary documented in this encounter Additional Health Concerns Assessment Noted Time PHQ-9 Depression Total Score: 3 04/23/19 25 11:02 AM EST documented as of this encounter Care Teams Welt Drawer Relationship Specialty Start Date End Date Lara Headley MD [address] [place] [phone] PCP - General Family Medicine 08/31/16 documented as of this encounter
--- OUTSIDE RECORDS SUMMARY | 2024-05-22 13:30 | XMS_ITS | Encounter Summary ---
Author Organization [employer] Address 75 [facility] 7t [place] [address] Care Team Providers Care Cloth Spreader Screen Printing Name Role Phone Lara Headley MD Primary Care Provider + Encounter Details Date Type Department Care Team ([facility] st Contact Info) Description 05/08/2024 Population Health Risk Score [facility] (C3) Department [address] [phone] Provider, Population Health Generic Social History Tobacco Use Types Packs/Day Years [...] Visit [facility] ADULT DENTAL [address] [place] [address] Armand Prieto DDS [address] [place] [address] 05/26/2024 10:15 AM EDT Office Visit [facility] MEDICINE [address] [place] [address] 58936 Violeta Correia MD [address] [place] [address] 05/27/2024 9:00 AM EDT Office Visit [facility] [address] [place] [address] Christian Arreguin MD [address] [place] [address] 06/03/2024 9:00 AM EDT Office Visit [facility] MED[facility] [address] [place] [address] [phone] Christian Arreguin MD 230 [place] [address] documented as of this encounter Goals Goal Patient Goal Type Associated Problems Recent Progress Patient-Stated? Author Keep your medical appointments Lifestyle No Richard Woods RN documented as of this encounter Visit Diagnoses Not on filedocumented in this encounter Additional Health Concerns Assessment Noted Time PHQ-9 Depression Total Score: 3 04/23/19 25 11:02 AM EST documented as of this encounter Care Teams Cloth Spreader Screen Printing Relationship Specialty Start Date End Date Lara Headley MD 230 [place] [address] PCP - General Family Medicine 08/31/16 documented as of this encounter
--- OUTSIDE RECORDS SUMMARY | 2024-05-22 13:30 | XMS_ITS | Encounter Summary ---
Author Organization [employer] Address 75 [facility] 7t [place] [address] Care Team Providers Care Chemical Processor Name Role Phone Lara Headley MD Primary Care Provider + Reason for Visit * Reason Comments Transition Of Care (Tcm) HDF- scheduled , SDOH is positive tobacco screening is negative Encounter Details Date Type Department Care Team ([facility] st Contact Info) Description 05/08/2024 Patient Outreach [facility] MEDICINE 230 [place], [place] [phone] Lara Headley MD 230 [place] [address] Transition Of Care (Tcm) (HDF- scheduled , SDOH is positive tobacco screening is negative) Social History Tobacco Use Types Packs/Day Years [...] as of this encounter Miscellaneous Notes * Significant Event - Scott Aguilera - 05/08/2024 10:37 AM EDT 05/08/24 1035 Hospital Discharges and Admission for [facility] Type of Visit Hospital Admission Date of Admission/Visit 04/27/24 Date of Discharge 05/04/24 Facility [facility] Diagnosis Schizoaffective disorder, depressive type , PTSD ,Opioid use disorder , Cocaine use disorder Disposition Discharged Home Follow-Up Actions Follow-Up Needed Provider appointment Follow-Up Outcome Spoke to Patient;Booked Appointment Initial Contact Date 05/08/24 BEATA Dawkins placed outbound call to patient for HDF outreach. Patient's name and were confirmed. Patient educated on the importance of follow up with provider following inpatient admission. Patient offered an HDF appt. Patient is agreeable to an appointment and has been scheduled for 05/18/2024 at 10:00 AM with . Insurance verified prior to scheduling. Patient advised to bringto appointment a photo id and insurance card. Patient also notified that a health center pharmacistwill be reaching out to them via telephone prior to their scheduled appointment in order to review their medications in preparation for their appointment. Patient provided with education on contacting the Health Center with any questions or concerns prior to the scheduled appointment. Patient educated on extended clinic hours on Mondays and Wednesdays, and Walk-In Urgent Care Located in [facility] of [facility]. Patient provided with after-hours line for [facility], , which offer night time triage service and option to transfer to special distribution clerk provider if needed. BEATA Zamora placed successful outbound call to patient for pre-visit planning. Patient name and confirmed. Patient confirms appt date and time, and has transportation arrangements. Biggest concern for appointment at this time is no concern. Appropriate screenings completed in anticipation of appointment. SDOH screening is positive for food and transportation. documented in this encounter Plan of Treatment Upcoming Encounters Date Type Department Care Team (Late st Contact Info) Description 05/25/2024 1:30 PM EDT Office Visit [facility] ADULT DENTAL [address] [place] [phone] Armand Prieto DDS [address] [place] [address] 05/26/2024 10:15 AM EDT Office Visit [facility] MEDICINE [address] [place] [address] 116[address] Violeta Correia MD [address] [place] [address] 05/27/2024 9:00 AM EDT Office Visit [facility] MEDICINE [address] [place] [address] Christian Arreguin MD [address] [place] [phone] 06/03/2024 9:00 AM EDT Office Visit [facility] MEDICINE 230 [place] [address] Christian Arreguin MD 230 [place] [address] documented as of this encounter Goals Goal Patient Goal Type Associated Problems Recent Progress Patient-Stated? Author Keep your medical appointments Lifestyle No Richard Woods RN documented as of this encounter Visit Diagnoses Not on filedocumented in this encounter Additional Health Concerns Assessment Noted Time PHQ-9 Depression Total Score: 3 04/23/19 25 11:02 AM EST documented as of this encounter Care Teams Chemical Processor Relationship Specialty Start Date End Date Lara Headley MD 230 [place] [address] PCP - General Family Medicine 08/31/16 documented as of this encounter
--- OUTSIDE RECORDS SUMMARY | 2024-05-22 13:30 | XMS_ITS | Encounter Summary ---
Author Organization [employer] Address [address] [facility] 7t [place] [address] Care Team Providers Care Spark Plug Assembler Name Role Phone Lara Headley MD Primary Care Provider + Reason for Visit * Reason Comments DIANE Recovery Supports Encounter Details Date Type Department Care Team ([facility] st Contact Info) Description 05/21/2024 Patient Outreach [facility] MEDICINE 230 [place] [address] Armand Dykes Recovery Supports Social History Tobacco Use Types [...] as of this encounter Progress Notes * Armand Dykes - 05/21/2024 2:52 PM EDT I met with Sudhir today. Setting: in person at [facility] Recovery Wellness Goals worked on: Social Stability Action taken/next steps: Offered person centered recovery support and Attended alcohol and drug free activity Additional comments: Participated in the center. Armand Dykes documented in this encounter Plan of Treatment Upcoming Encounters Date Type Department Care Team (Late st Contact Info) Description 05/25/2024 1:30 PM EDT Office Visit [facility] ADULT DENTAL [address] [place] [phone] Armand Prieto DDS 230 [place] [address] 05/26/2024 10:15 AM EDT Office Visit [facility] MEDICINE [address] [place] [phone] Violeta Correia MD 230 [place] [address] 05/27/2024 9:00 AM EDT Office Visit [address] [phone] Christian Arreguin MD [address] [place] [address] [phone] 06/03/2024 9:00 AM EDT Office Visit [address] [address] Christian Arreguin MD [address] [place] [address] [phone] documented as of this encounter Goals Goal [...] documented as of this encounter Care Teams Spark Plug Assembler Relationship Specialty Start Date End Date Lara Headley MD [address] [place] [address] [phone] PCP - General Family Medicine 08/31/16 documented as of this encounter
--- OUTSIDE RECORDS SUMMARY | 2024-05-22 13:30 | XMS_ITS | Encounter Summary ---
Author Organization [employer] Address 75 [facility] 7t [place] [address] Care Team Providers Care Wildlife Biostation Research Ecologist Name Role Phone Lara Headley MD Primary Care Provider + Reason for Visit * Reason Comments OBAT Encounter Details Date Type Department Care Team (Latest Contact Info) Description 04/23/2024 2:45 PM EST Office Visit [facility] MEDICINE 230 [place], [place] [phone] Dalia El MD 230 [place] [address] Opioid dependence, uncomplicated (CMS/HCC) (Primary Dx); Schizoaffective [...] to live in the sober house in [place]. We discussed the possibility of detox today, [...] orders for this visit: Opioid dependence, uncomplicated ([facility]) Counseling provided RE: importance of [...] tongue Once per day for 7 days. Schizoaffective disorder, depressive type ([facility]) Continue BH services with Swapna. Anticipate referral to [facility] for psychiatric [...] 1:30 PM EDT Office Visit [facility] ADULT DENTAL [address] [place] [phone] Armand Prieto DDS [address] [place] [address] 05/26/2024 10:15 AM EDT Office Visit [address] [address] Violeta Correia MD [address] [place] [address] 05/27/2024 9:00 AM EDT Office Visit [address] [address] Christian Arreguin MD [address] [place] [address] 06/03/2024 9:00 AM EDT Office Visit [address] [address] Christian Arreguin MD [address] [place] [phone] documented as of this encounter Procedures Procedure Name Priority Date/Time Associated Diagnosis Comments POCT RIN-14 URINE DRUG SCREEN Routine 04/23/2024 1:11 PM EST Opioid dependence, uncomplicated ([facility]) documented in this encounter Results * POCT [...] uncomplicated (CMS/HCC)- Primary Schizoaffective disorder, depressive type (CMS/HCC) Schizoaffective disorder, unspecified condition documented in this encounter Additional Health Concerns Assessment Noted Time PHQ-9 Depression Total Score: 3 04/23/19 25 11:02 AM EST documented as of this encounter Care Teams Wildlife Biostation Research Ecologist Relationship Specialty Start Date End Date Lara Headley MD 230 [place] [address] PCP - General Family Medicine 08/31/16 documented as of this encounter
--- OUTSIDE RECORDS SUMMARY | 2024-05-22 13:30 | XMS_ITS | Encounter Summary ---
Author Organization [employer] Address 75 [facility] 7t [place] [address] Care Team Providers Care Refrigerator Crater Name Role Phone Lara Headley MD Primary [...] Description 05/25/2024 1:30 PM EDT Office Visit [facility] ADULT DENTAL [address] [place] [address] Armand Prieto DDS [address] [place] [address] 05/26/2024 10:15 AM EDT Office Visit [facility] MEDICINE [address] [place] [address]1468 Violeta Correia MD [address] [place] [address] 05/27/2024 9:00 AM EDT Office Visit [facility] MEDICINE [address] [place] [address] Christian Arreguin MD [address] [place] [address] 06/03/2024 9:00 AM EDT Office Visit [facility] MEDICINE [address] [place] [address]378 Christian Arreguin MD [address] [place] [address] documented as of this encounter Visit Diagnoses Not on filedocumented in this encounter Additional Health Concerns Assessment Noted Time PHQ-9 Depression Total Score: 3 04/23/19 25 11:02 AM EST documented as of this encounter Care Teams Refrigerator Crater Relationship Specialty Start Date End Date Lara Headley MD [address] [place] [phone] PCP - General Family Medicine 08/31/16 documented as of this encounter
--- OUTSIDE RECORDS SUMMARY | 2024-05-22 13:30 | XMS_ITS | Encounter Summary ---
Author Organization [employer] Address 75 [facility] 7t [place] [address] Care Team Providers Care Welt Sewer Name Role Phone Lara Headley MD Primary Care Provider + Reason for Visit * Reason Onset Date Comments No Show 05/21/2024 Encounter Details Date Type Department Care Team ([facility] st Contact Info) Description 05/21/2024 Telephone [facility] MEDICINE [address] [place] [address] [phone] Lara Headley MD 230 [place], [place] [phone] No Show Social History Tobacco Use Types [...] encounter Miscellaneous Notes * Telephone Encounter - Tita Randall RN - 05/21/2024 3:12 PM EDT TC placed to pt., pt. Reports he forgot about today's HDF but agrees to r/s to 05/26/24 at 10:15am with Dr. Baker * Telephone Encounter - Nicole Aguilera - 05/21/2024 2:33 PM EDT PT NS FOR r/s from 05/18/24: [facility] 04/27-05/05 Dx; Depressive Disorder , PTSD , Cocaine use , Opioid use disorder documented in this encounter Plan of Treatment Upcoming Encounters Date Type Department Care Team (Late st Contact Info) Description 05/25/2024 1:30 PM EDT Office Visit [facility] ADULT DENTAL 230 [place] [address] Armand Prieto DDS [address] [place] [address] 05/26/2024 10:15 AM EDT Office Visit [facility] MEDICINE [address] [place] [address] Violeta Correia MD [address] [place] [address] 05/27/2024 9:00 AM EDT Office Visit [address] [address] Christian Arreguin MD [address] [place] [address] 06/03/2024 9:00 AM EDT Office Visit [address] [address] Christian Arreguin MD [address] [place] [phone] documented as of this encounter Goals Goal [...] as of this encounter Care Teams Welt Sewer Relationship Specialty Start Date End Date Lara Headley MD [address] [place] [phone] PCP - General Family Medicine 08/31/16 documented as of this encounter
--- OUTSIDE RECORDS SUMMARY | 2024-05-22 13:30 | XMS_ITS | Encounter Summary ---
Author Organization [employer] Address 75 [facility] 7t [place] [address] Care Team Providers Care Biodiesel Production Technician Name Role Phone Lara Headley MD Primary Care Provider + Reason for Visit * Reason Comments Recovery Supports Encounter Details Date Type Department Care Team ([facility] st Contact Info) Description 05/12/2024 Patient Outreach [facility] MEDICINE 230 [place], [place] [phone] Evaristo Canchola [address] [place] [address] Recovery Supports Social History Tobacco Use Types [...] t he electric, gas, oil or water [employer] threatened to shut off services in your [...] encounter Progress Notes * Evaristo Canchola - 05/12/2024 3:24 PM EDT I met with Sudhir today. Setting: in person at [facility] Recovery [...] Office Visit [facility] ADULT DENTAL [address] [place] [address] Armand Prieto DDS [address] [place] [address] 05/26/2024 10:15 AM EDT Office Visit [address] [address] Violeta Correia MD [address] [place] [address] 05/27/2024 9:00 AM EDT Office Visit [address] [address] Christian Arreguin MD [address] [place] [address] [phone] 06/03/2024 9:00 AM EDT Office Visit [address] [phone] Christian Arreguin MD [address] [place] [address] [phone] documented as of this encounter Goals Goal Patient Goal Type Associated Problems Recent Progress Patient-Stated? Author Keep your medical appointments Lifestyle No Richard Woods, EMILY documented as of this encounter Visit Diagnoses Not on filedocumented in this encounter Additional Health Concerns Assessment Noted Time PHQ-9 Depression Total Score: 3 04/23/19 25 11:02 AM EST documented as of this encounter Care Teams Biodiesel Production Technician Relationship Specialty Start Date End Date Lara Headley MD [address] [place] [address] PCP - General Family Medicine 08/31/16 documented as of this encounter
--- OUTSIDE RECORDS SUMMARY | 2024-05-22 13:30 | XMS_ITS | Encounter Summary ---
Author Organization [employer] Address 75 [facility] 7t [place] [address] Care Team Providers Care Forest Engineer Name Role Phone Lara Headley MD Primary Care Provider + Reason for Visit * Reason Comments [facility] Recovery Supports Encounter Details Date Type Department Care Team ([facility] st Contact Info) Description 05/12/[address] [facility] MEDICINE 230 [place] [address] Jack Tavares Recovery Supports Social History Tobacco [...] encounter Progress Notes * Jack Tavares - 05/12/2024 11:48 AM EDT I met with Sudhir today. Setting: in person at [facility] Recovery Wellness Goals worked on: Social Stability Action taken/next steps: Attended alcohol and drug free activity Additional comments: Today, the participant was at the Recovery [facility]. Jack Tavares documented in this encounter Plan of Treatment Upcoming Encounters Date Type Department Care Team (Late st Contact Info) Description 05/25/2024 1:30 PM EDT Office Visit [facility] ADULT DENTAL [address] [place] [address] Armand Prieto DDS 230 [place] [address] 05/26/2024 10:15 AM EDT Office Visit [facility] MEDICINE [address] [place] [address] Violeta Correia MD 230 [place] [address] 05/27/2024 9:00 AM EDT Office Visit [address] [phone] Christian Arreguin MD [address] [place] [address] [phone] 06/03/2024 9:00 AM EDT Office Visit [address] [phone] Christian Arreguin MD [address] [place] [address] [phone] documented as of this encounter Goals Goal Patient Goal Type Associated Problems Recent Progress Patient-Stated? Author Keep your medical appointments Lifestyle Richard Newberry, EMILY documented as of this encounter Visit Diagnoses Not on filedocumented in this encounter Additional Health Concerns Assessment Noted Time PHQ-9 Depression Total Score: 3 04/23/19 25 11:02 AM EST documented as of this encounter Care Teams Forest Engineer Relationship Specialty Start Date End Date Lara Headley MD [address] [place] [address] [phone] PCP - General Family Medicine 08/31/16 documented as of this encounter
--- OUTSIDE RECORDS SUMMARY | 2024-05-22 13:30 | XMS_ITS | Encounter Summary ---
Author Organization [employer] Address 75 [facility] 7t [place] [address] Care Team Providers Care Post Partum Nurse Name Role Phone Lara Headley MD Primary Care Provider + Reason for Visit * Reason Onset Date Comments No Show 05/18/2024 Encounter Details Date Type Department Care Team ([facility] st Contact Info) Description 05/18/2024 Telephone [facility] [address] [place] [address] [phone] Lara Headley MD [address] [place], [place] [phone] No Show Social History Tobacco Use Types [...] encounter Miscellaneous Notes * Telephone Encounter - Torie Del Real - 05/18/2024 10:26 AM EDT Pt no showed to appt on 05/18/24 documented in this encounter Plan of Treatment Upcoming Encounters Date Type Department Care Team (Late st Contact Info) Description 05/25/2024 1:30 PM EDT Office Visit [facility]ULT [facility] [address] [place] [address] Armand Prieto DDS [address] [place] [address] 05/26/2024 10:15 AM EDT Office Visit [facility] [address] [place] [address] Violeta Correia MD [address] [place] [address] 05/27/2024 9:00 AM EDT Office Visit [address] [address] Christian Arreguin MD [address] [place] [address] 06/03/2024 9:00 AM EDT Office Visit [address] [address] Christian Arreguin MD [address] [place] [phone] documented as of this encounter Goals Goal [...] documented as of this encounter Care Teams Post Partum Nurse Relationship Specialty Start Date End Date Lara Headley MD [address] [place] [phone] PCP - General Family Medicine 08/31/16 documented as of this encounter
--- OUTSIDE RECORDS SUMMARY | 2024-05-22 13:30 | XMS_ITS | Encounter Summary ---
Author Organization [employer] Address 75 [facility] 7t [place] [address] Care Team Providers Care Erecting Crane Operator Name Role Phone Lara Headley MD Primary Care Provider + Encounter Details Date Type Department Care Team (Latest Contact Info) Description 05/12/2024 Travel Social History Tobacco Use Types Packs/Day [...] Description 05/25/2024 1:30 PM EDT Office Visit [facility] [address] [place] [address] Armnad Prieto DDS [address] [place] [address] 05/26/2024 10:15 AM EDT Office Visit [address] [address] Violeta Correia MD [address] [place] [address] 05/27/2024 9:00 AM EDT Office Visit [address] [address] Christian Arreguin MD [address] [place] [address] 06/03/2024 9:00 AM EDT Office Visit [address] [address] Christian Arreguin MD [address] [place] [address] documented as of this encounter Goals Goal Patient Goal Type Associated Problems Recent Progress Patient-Stated? Author Keep your medical appointments Lifestyle No Richard Woods RN documented as of this encounter Visit Diagnoses Not on filedocumented in this encounter Additional Health Concerns Assessment Noted Time PHQ-9 Depression Total Score: 3 04/23/19 25 11:02 AM EST documented as of this encounter Care Teams Erecting Crane Operator Relationship Specialty Start Date End Date Lara Headley MD [address] [place] [phone] PCP - General Family Medicine 08/31/16 documented as of this encounter
--- OUTSIDE RECORDS SUMMARY | 2024-05-22 13:30 | XMS_ITS | Encounter Summary ---
Author Organization [employer] Address 75 [facility] 7t [place] [address] Care Team Providers Care Commercial Illustrator Name Role Phone Lara Headley MD Primary Care Provider + Encounter Details Date Type Department Care Team (Late st Contact Info) Description 04/26/2024 Orders Only GENERIC EXTERNAL DATA DEPARTMENT Provider, [...] Description 05/25/2024 1:30 PM EDT Office Visit [facility]ULT D[facility] [address] [place] [address] Armand Prieto DDS [address] [place] [address] 05/26/2024 10:15 AM EDT Office Visit [facility] [address] [place] [address] Violeta Correia MD [address] [place] [address] 05/27/2024 9:00 AM EDT Office Visit [address] [address] Christian Arreguin MD [address] [place] [address] 06/03/2024 9:00 AM EDT Office Visit [address] [address] Christian Arreguin MD [address] [place] [address] documented as of this encounter Procedures Procedure Name Priority Date/Time Associated Diagnosis Comments ETHANOL Routine 04/26/2024 3:34 PM EST CBC WITH AUTO DIFFERENTIAL Routine 04/26/2024 3:34 PM EST COMPREHENSIVE METABOLIC PANEL Routine 04/26/2024 3:34 PM EST documented in this encounter Results * Ethanol (04/26/2024 3:34 PM EST) ETHANOL (MG/DL) IN SER/PLAS <10 mg/dL [facility] Comment:Serum/plasma ethanol results are to be used formedical/treatment purposes only. 04/26/2024 3:34 PM EST 04/26/2024 3:37 PM EST us Generic External Data Provider LAB BLOOD ORDERAB LES Final Result [facility] [address] [place] [address] [phone] * (ABNORMAL) Comprehensive Metabolic Panel (04/26/2024 3:34 PM EST) Sodium 136 135 - 145 mmol/L [facility] Potassium 3.6 3.3 - 5.1 mmol/L [facility] Chloride 98 96 - 108 mmol/L [facility] Carbon Dioxide 29 22 - 29 mmol/L [facility] Anion Gap 13 12 - 20 [facility] Urea Nitrogen (BUN) 17(H) 9 - 16 mg/dL [facility] Creatinine, Serum 0.78 0.5 - 1.4 mg/dL [facility] Creatinine Clr Calc Pharmacy 102.9 [facility] Comment:eGFR (calculated fro m the MDRD study equation) and eCrCl(calculated from the Cockcroft-Gault equation) are based ondifferent parameters and may not yield comparable results.If eCrCl result is absurd, please check patient'sheight/weight. Estimated Glomerular Filt Rate >60 [facility] Comment:Chronic Kidney Disea se: Estimated GFR < 60 mL/min/1.73u7Vwyake Kidney Disease: Estimated GFR < 15 mL/min/1.73m2 Glucose 101 60 - 115 mg/dL [facility] Calcium 9.9 8.4 - 10.2 mg/dL [facility] Bilirubin, Total 0.4 0.0 - 1.0 mg/dL [facility] Aspartate Amino Transferase 46(H) 5 - 37 U/L [facility] Alanine Aminotransferase 76(H) 0 - 40 U/L [facility] Total Protein 8.3(H) 6.5 - 8.0 g/dL [facility] Albumin Level 4.2 3.5 - 5.0 g/dL [facility] Alkaline Phosphatase 90 39 - 117 U/L [facility] 04/26/2024 3:34 PM EST 04/26/2024 3:37 PM EST us Generic External Data Provider LAB BLOOD ORDERAB LES Final Result Performing Organization Address City/State/[facility] Co de Phone Number [facility] [address] [place] [phone] * (ABNORMAL) CBC auto differential (04/26/2024 3:34 PM EST) White Blood Count 4.7(L) 4.8 - 10.8 X10*3/uL [facility] Red Blood Count 4.45(L) 4.60 - 5.80 X10*6/uL [facility] Hemoglobin 11.6(L) 14.0 - 18.0 g/dl [facility] Hematocrit 36.2(L) 42.0 - 52.0 % [facility] Mean Corpuscular Volume 81.3 80.0 - 98.0 fL [facility] Mean Corpuscular Hemoglobin 26.1(L) 27.0 - 33.0 pg [facility] Mean Corpuscular HGB Conc 32.0 31.0 - 36.0 g/dl [facility] Red Cell Distribution Width 15.4 11.0 - 16.0 % [facility] Platelet Count 295 160 - 400 X10*3/uL [facility] Mean Platelet Volume 8.0(L) 9.4 - 12.4 fL [facility] Neutrophils Percent Auto 55.6 45 - 73 % [facility] Imm Gran Pct Auto 0.2 0.0 - 0.4 % [facility] Lymphocytes Percent Auto 27.8 20 - 40 % [facility] Monocytes Percent Auto 14.3(H) 2 - 11 % [facility] Eosinophils Percent Auto 1.7 0 - 4 % [facility] Basophils Percent Auto 0.4 0 - 2 % [facility] NRBC Pct Auto 0.0 0.0 - 0.2 /100WBC [facility] Neutrophils Absolute Auto 2.6 2.0 - 8.3 x10*3/uL [facility] Imm Gran Abs Auto 0.01 0.00 - 0.03 X10*3/uL [facility] Lymphocytes Absolute Auto 1.3 1.2 - 4.9 X10*3/uL [facility] Monocytes Absolute Auto 0.7 0.1 - 1.2 X10*3/uL [facility] Eosinophils Absolute Auto 0.1 0.0 - 0.4 X10*3/uL [facility] Basophils Absolute Auto 0.0 0.0 - 0.2 X10*3/uL [facility] NRBC Abs Auto 0.000 0.0 - 0.012 X10*3/uL [facility] Blood 04/26/2024 3:34 PM EST 04/26/2024 3:37 PM EST us Generic External Data Provider LAB BLOOD ORDERAB LES Final Result [facility] [address] [place] [phone] documented in this encounter Visit Diagnoses Not on filedocumented in this encounter Additional Health Concerns Assessment Noted Time PHQ-9 Depression Total Score: 3 04/23/19 25 11:02 AM EST documented as of this encounter Care Teams Commercial Illustrator Relationship Specialty Start Date End Date Lara Headley MD [address] [place] [phone] PCP - General Family Medicine 08/31/16 documented as of this encounter
--- OUTSIDE RECORDS SUMMARY | 2024-05-22 13:30 | XMS_ITS | Encounter Summary ---
Author Organization [employer] Address 75 [facility] 7t [place] [address] Care Team Providers Care Stock Raiser Name Role Phone Lara Headley MD Primary Care Provider + Reason for Visit * Reason Onset Date Comments Med Refill 05/15/2024 Encounter Details Date Type Department Care Team (Late st Contact Info) Description 05/15/2024 Refill [facility] MED[facility]INE [address] [place] [address] Chanel Thrasher RN Opioid dependence, uncomplicated (CMS/HCC) [...] the past 12 months, has t he [employer], [employer], oil or water [employer] threatened to shut off services in your [...] [facility] ADULT DENTAL [address] [place] [address] Armand Prieot DDS [address] [place] [address] 05/26/2024 10:15 AM EDT Office Visit [facility] MEDICINE [address] [place] [address] Violeta Correia MD [address] [place] [address] 05/27/2024 9:00 AM EDT Office Visit [facility] MED[facility]INE [address] [place] [address] Christian Arreguin MD [address] [place] [address] 06/03/2024 9:00 AM EDT Office Visit [facility] MEDICINE [address] [place] [address] Christian Arreguin MD 230 [place] [address] documented as of this encounter Goals Goal [...] documented as of this encounter Care Teams Stock Raiser Relationship Specialty Start Date End Date Lara Headley MD [address] [place] [phone] PCP - General Family Medicine 08/31/16 documented as of this encounter
--- OUTSIDE RECORDS SUMMARY | 2024-05-22 13:30 | XMS_ITS | Encounter Summary ---
Author Organization [employer] Address 75 [facility] 7t [place] [address] Care Team Providers Care Utility Arborist Name Role Phone Lara Headley MD Primary Care Provider + Reason for Visit * Reason Comments Care Coordination Outreach Encounter Details Date Type Department Care Team (Latest Contact Info) Description 05/15/2024 Patient Outreach [facility] MEDICINE [address] [place], [place] [phone] Lara Headley MD 230 [place], [place] [phone] Care Coordination (Outreach) Social History Tobacco Use [...] encounter Progress Notes * Sangeetha Richardson - 05/15/2024 9:33 AM EDT CHW Sangeetha Richardson , placed outbound call to patient in regards to offer services. No answer at this time. CHW was unable to leave a voicemail. . Will re-attempt to contact within 5 days. and address not confirmed. documented in this encounter Plan of Treatment Upcoming Encounters Date Type Department Care Team (Late st Contact Info) Description 05/25/2024 1:30 PM EDT Office Visit [facility] ADULT DENTAL [address] [place] [address] Armand Prieto DDS [address] [place] [address] 05/26/2024 10:15 AM EDT Office Visit [facility] MEDICINE [address] [place] [address] Violeta Correia MD [address] [place] [address] [phone] 05/27/2024 9:00 AM EDT Office Visit [address] [phone] Christian Arreguin MD [address] [place] [address] [phone] 06/03/2024 9:00 AM EDT Office Visit [address] [phone] Christian Arreguin MD [address] [place] [address] [phone] documented as of this encounter Goals Goal [...] documented as of this encounter Care Teams Utility Arborist Relationship Specialty Start Date End Date Lara Headley MD [address] [place] [address] [phone] PCP - General Family Medicine 08/31/16 documented as of this encounter
--- OUTSIDE RECORDS SUMMARY | 2024-05-22 13:31 | XMS_ITS | Encounter Summary ---
Author Organization [employer] Address 75 [facility] 7t [place] [address] Care Team Providers Care Product Support Analyst Name Role Phone Lara Headley MD Primary Care Provider + Reason for Visit * Reason Comments Recovery Supports Encounter Details Date Type Department Care Team ([facility] st Contact Info) Description 05/14/2024 Patient Outreach [facility] MEDICINE [address] [place], [place] [phone] Evaristo Canchola [address] [place] [address] Recovery Supports Social History Tobacco Use Types [...] t he electric, gas, oil or water [employer] threatened to shut off services in your [...] encounter Progress Notes * Evaristo Canchola - 05/14/2024 3:46 PM EDT I met with Sudhir today. Setting: in person at [facility] Recovery Wellness Goals worked on: [...] Description 05/25/2024 1:30 PM EDT Office Visit [facility] ADULT DENTAL [address] [place] [address] Armand Prieto DDS [address] [place] [address] 05/26/2024 10:15 AM EDT Office Visit [facility] MEDICINE [address] [place] [address] Violeta Correia MD [address] [place] [address] 05/27/2024 9:00 AM EDT Office Visit [address] [phone] Christian Arreguin MD [address] [place] [address] [phone] 06/03/2024 9:00 AM EDT Office Visit [address] [phone] Christian Arreguin MD [address] [place] [address] [phone] documented as of this encounter Goals Goal [...] of this encounter Care Teams Product Support Analyst Relationship Specialty Start Date End Date Lara Headley MD [address] [place] [address] [phone] PCP - General Family Medicine 08/31/16 documented as of this encounter
--- OUTSIDE RECORDS SUMMARY | 2024-05-22 13:31 | XMS_ITS | Encounter Summary ---
Author Organization [employer] Address 75 [facility] 7t [place] [address] Care Team Providers Care Engineering Geologist Name Role Phone Lara Headley MD Primary Care Provider + Encounter Details Date Type Department Care Team (Latest Contact Info) Description 05/07/2024 Travel Social History Tobacco Use Types Packs/Day [...] Description 05/25/2024 1:30 PM EDT Office Visit [facility] ADULT DENTAL [address] [place] [address] Armand Prieto DDS [address] [place] [address] 05/26/2024 10:15 AM EDT Office Visit [address] [address] Violeta Correia MD [address] [place] [address] 05/27/2024 9:00 AM EDT Office Visit [address] [address] Christian Arreguin MD [address] [place] [address] 06/03/2024 9:00 AM EDT Office Visit [address] [address] Christian Arreguin MD [address] [place] [address] documented as of this encounter Goals Goal Patient Goal Type Associated Problems Recent Progress Patient-Stated? Author Keep your medical appointments Lifestyle No Richard Woods RN documented as of this encounter Visit Diagnoses Not on filedocumented in this encounter Additional Health Concerns Assessment Noted Time PHQ-9 Depression Total Score: 3 04/23/19 25 11:02 AM EST documented as of this encounter Care Teams Engineering Geologist Relationship Specialty Start Date End Date Lara Headley MD [address] [place] [phone] PCP - General Family Medicine 08/31/16 documented as of this encounter
--- OUTSIDE RECORDS SUMMARY | 2024-05-22 13:31 | XMS_ITS | Encounter Summary ---
Author Organization [employer] Address 75 [facility] 7t [place] [address] Care Team Providers Care Airway Traffic Controller Name Role Phone Lara Headley MD Primary Care Provider + Encounter Details Date Type Department Care Team (Latest Contact Info) Description 05/13/2024 Travel Social History Tobacco Use Types Packs/Day [...] Description 05/25/2024 1:30 PM EDT Office Visit [facility] ADULT DENTAL [address] [place] [address] Armand Prieto DDS [address] [place] [address] 05/26/2024 10:15 AM EDT Office Visit [address] [address] Violeta Correia MD [address] [place] [address] 05/27/2024 9:00 AM EDT Office Visit [address] [address] Christian Arreguin MD [address] [place] [address] 06/03/2024 9:00 AM EDT Office Visit [address] [address] Christian Arreguin MD [address] [place] [phone] documented as of this encounter Goals Goal [...] documented as of this encounter Care Teams Airway Traffic Controller Relationship Specialty Start Date End Date Lara Headley MD [address] [place] [phone] PCP - General Family Medicine 08/31/16 documented as of this encounter
--- OUTSIDE RECORDS SUMMARY | 2024-05-22 13:31 | XMS_ITS | Encounter Summary ---
Author Organization [employer] Address 75 [facility] 7t [place] [address] Care Team Providers Care Health Education Assistant Name Role Phone Lara Headley MD Primary Care Provider + Reason for Visit * Reason Comments Transition Of Care (Tcm) Encounter Details Date Type Department Care Team ([facility] st Contact Info) Description 05/08/2024 Patient Outreach [facility] MEDICINE 230 [place], [place] [phone] Lara Headley MD [address] [place] [address] Transition Of Care (Tcm) Social History Tobacco [...] Progress Notes * Claudette Mcguire RN - 05/08/2024 9:33 AM EDT Transition of Care Note Sudhir Morales is going through a recent transition of care. documented in this encounter Plan of Treatment Upcoming Encounters Date Type Department Care Team (Late st Contact Info) Description 05/25/2024 1:30 PM EDT Office Visit [facility] ADULT DENTAL [address] [place] [address] Armand Prieto DDS [address] [place] [address] 05/26/2024 10:15 AM EDT Office Visit [facility] MEDICINE [address] [place] [address] Violeta Correia MD [address] [place] [address] 05/27/2024 9:00 AM EDT Office Visit [facility] [address] [place] [address] Christian Arreguin MD [address] [place], [place] 06/03/2024 9:00 AM EDT Office Visit [facility] [address] [place] [address] Christian Arreguin MD [address] [place], [place] [phone] documented as of this encounter Goals Goal Patient Goal Type Associated Problems Recent Progress Patient-Stated? Author Keep your medical appointments Lifestyle No Richard Woods, RN documented as of this encounter Visit Diagnoses Not on filedocumented in this encounter Additional Health Concerns Assessment Noted Time PHQ-9 Depression Total Score: 3 04/23/19 25 11:02 AM EST documented as of this encounter Care Teams Health Education Assistant Relationship Specialty Start Date End Date Lara Headley MD [place], [place] [phone] PCP - General Family Medicine 08/31/16 documented as of this encounter
--- OUTSIDE RECORDS SUMMARY | 2024-05-22 13:31 | XMS_ITS | Encounter Summary ---
Author Organization [employer] Address 75 [facility] 7t [place] [address] Care Team Providers Care Analog Device Designer Name Role Phone Lara Headley MD Primary Care Provider + Reason for Visit * Reason Comments [facility] Recovery Supports Encounter Details Date Type Department Care Team ([facility] st Contact Info) Description 05/07/[address] [facility] MEDICINE [address] [place] [address] Jack Tavares Recovery Supports Social History Tobacco [...] encounter Progress Notes * Jack Tavares - 05/07/2024 3:34 PM EDT I met with Sudhir today. Setting: in person at [facility] Recovery Wellness Goals worked on: Social Stability Action taken/next steps: Attended alcohol and drug free activity Additional comments: Today, the participant Sudhir Morales was at the [facility]. Jack Tavares documented in this encounter Plan of Treatment Upcoming Encounters Date Type Department Care Team (Late st Contact Info) Description 05/25/2024 1:30 PM EDT Office Visit [facility] ADULT DENTAL [address] [place] [address] Armand Prieto DDS [address] [place] [address] 05/26/2024 10:15 AM EDT Office Visit [facility] MEDICINE [address] [place] [address] Violeta Correia MD 230 [place] [address] 05/27/2024 9:00 AM EDT Office Visit [address] [address] Christian Arreguin MD [address] [place] [address] 06/03/2024 9:00 AM EDT Office Visit [address] [address] Christian Arreguin MD [address] [place] [phone] documented as of this encounter Goals Goal Patient Goal Type Associated Problems Recent Progress Patient-Stated? Author Keep your medical appointments Lifestyle No Richard Woods RN documented as of this encounter Visit Diagnoses Not on filedocumented in this encounter Additional Health Concerns Assessment Noted Time PHQ-9 Depression Total Score: 3 04/23/19 25 11:02 AM EST documented as of this encounter Care Teams Analog Device Designer Relationship Specialty Start Date End Date Lara Headley MD [address] [place] [address] PCP - General Family Medicine 08/31/16 documented as of this encounter
--- OUTSIDE RECORDS SUMMARY | 2024-05-22 13:31 | XMS_ITS | Clinical Summary ---
Author Organization [employer] Address [address] [facility] [address] [place] [address] Care Team Providers Care Director Of Corporate Communications Name Role Phone Lara Headley MD Primary Care Provider + Allergies No known active allergies Medications * This document contains information received from the source organization and may not represent a complete record from that organization. Blood Pressure Monitor kitIndications:P rimary hypertension Use as directed 3x/week 1 kit 023 Active Menthol, Topical Analgesic, (Icy Hot) 5 % patch Apply to affected area 14 patch 024 Active melatonin 5 MG tablet Take 2 tablets by mouth at bedtime. 024 Active acetaminophen (Tylenol) 500 MG tabletIndication s:Dental caries,Fractured dental sikh without loss of material Take 1 tablet (500 mg) by mouth every 6 (six) hours if needed for mild pain for up to 20 doses. 20 tablet Active Additional Information Patient not taking.Reported on 05/11/2024 hydrOXYzine HCl (Atarax) 25 MG tablet Take 1 tablet by mouth every 6 (six) hours if needed for anxiety. 024 Active sildenafil (Viagra) 100 MG tabletIndication s:Erectile dysfunction, unspecified erectile dysfunction type Take 1 tablet (100 mg) by mouth if needed each day for erectile dysfunction. 10 tablet 6 025 2024 Active cloNIDine (Catapres) 0.1 MG tablet Take 1 tablet (0.1 mg) by mouth 2 times daily. 60 tablet 025 2025 Active Buprenorphine HCl-Naloxone HCl (Suboxone) 8-2 MG SL filmIndications: Opioid dependence, uncomplicated (CMS/HCC) Place 2 Film under the tongue Once per day for 7 days. 14 Film 025 Active ammonium lactate (Lac-Hydrin) 12 % lotion APPLY TOPICALLY TO THE AFFECTED AREA(S) TWICE DAILY NEEDED FOR DRY SKIN 025 Active QUEtiapine (SEROquel) 100 MG tablet Take 1 tablet by mouth if needed at bedtime. 025 Active Buprenorphine HCl-Naloxone HCl (Suboxone) 8-2 MG SL filmIndications: Opioid dependence, uncomplicated (CMS/HCC) Place 2 Film under the tongue Once per day for 7 days. Do not start before May 27, 2024. 14 Film 025 2024 Active albuterol (ProAir HFA) 108 (90 Base) MCG/ACT inhaler Inhale 2 puffs every 4 (four) hours if needed for shortness of breath or wheezing. 18 g 2 024 2024 Discontinued(M ed list cleanup (will not trigger notification to Pharmacy)) pantoprazole (ProtoNix) 20 MG EC tablet Take 1 tablet (20 mg) by mouth before breakfast. Do not crush, chew, or split. 90 tablet 1 024 2024 Discontinued(M ed list cleanup (will not trigger notification to Pharmacy)) risperiDONE (RisperDAL) 3 MG tablet Take 1 tablet by mouth at bedtime. 024 2024 Discontinued(M ed list cleanup (will not trigger notification to Pharmacy)) risperiDONE (RisperDAL) 1 MG tabletIndication s:Mixed Bipolar Affective Disorder Take 1 tablet (1 mg) by mouth with breakfast. 30 tablet 3 025 2024 Discontinued(M ed list cleanup (will not trigger notification to Pharmacy)) DULoxetine (Cymbalta) [address] capsule Take 1 capsule (30 mg) by mouth Once per day. Do not crush or chew. 90 capsule 1 025 2024 Discontinued(M ed list cleanup (will not trigger notification to Pharmacy)) Buprenorphine HCl-Naloxone HCl (Suboxone) 8-2 MG SL filmIndications: Opioid dependence, uncomplicated (CMS/HCC) Place 2 Film under the tongue Once per day for 7 days. 14 Film 025 2024 Discontinued(R eorder (will not trigger notification to Pharmacy)) Buprenorphine HCl-Naloxone HCl (Suboxone) 8-2 MG SL filmIndications: Opioid dependence, uncomplicated (CMS/HCC) Place 2 Film under the tongue Once per day for 7 days. 14 Film 025 2024 Discontinued(R eorder (will not trigger notification to Pharmacy)) clonazePAM (KlonoPIN) 0.5 MG tablet Take 1 tablet by mouth if needed each day. 025 2024 Discontinued(M ed list cleanup (will not trigger notification to Pharmacy)) mirtazapine (Remeron) 15 MG tablet Take 1 tablet by mouth at bedtime. 025 2024 Discontinued(M ed list cleanup (will not trigger notification to Pharmacy)) FT Nicotine 4 MG gum Chew 1 each every 2 (two) hours. 025 2024 Discontinued(M ed list cleanup (will not trigger notification to Pharmacy)) omeprazole (PriLOSEC) [address] capsule Take 1 capsule by mouth 2 times daily. 6:30 AM and 4:30 PM 025 2024 Discontinued(M ed list cleanup (will not trigger notification to Pharmacy)) traZODone (Desyrel) 50 MG tablet Take 1 tablet by mouth if needed at bedtime for sleep. 025 2024 Discontinued(M ed list cleanup (will not trigger notification to Pharmacy)) Buprenorphine HCl-Naloxone HCl (Suboxone) 8-2 MG SL filmIndications: Opioid dependence, uncomplicated (CMS/HCC) Place 2 Film under the tongue Once per day for 3 days. 6 Film 025 2024 Discontinued(R eorder (will not trigger notification to Pharmacy)) Buprenorphine HCl-Naloxone HCl (Suboxone) 8-2 MG SL filmIndications: Opioid dependence, uncomplicated (CMS/HCC) Place 2 Film under the tongue Once per day for 7 days. 14 Film 025 2024 Discontinued(R eorder (will not trigger notification to Pharmacy)) Buprenorphine HCl-Naloxone HCl (Suboxone) 8-2 MG SL filmIndications: Opioid dependence, uncomplicated (CMS/HCC) Place 2 Film under the tongue Once per day for 7 days. Do not start before May 13, 2024. 14 Film 025 2024 Discontinued(R eorder (will not trigger notification to Pharmacy)) Buprenorphine HCl-Naloxone HCl (Suboxone) 8-2 MG SL filmIndications: Opioid dependence, uncomplicated (CMS/HCC) Place 2 Film under the tongue Once per day for 7 days. Do not start before May 20, 2024. 14 Film 025 2024 Discontinued(R eorder (will not trigger notification to Pharmacy)) Active Problems Problem Noted Date Diagnosed Date Cannabis use disorder 05/18/2024 Schizoaffective disorder, depressive type 2024 Opioid dependence, uncomplicated 04/23/2024 Suicidal ideation 03/05/2024 Polysubstance abuse 03/05/2024 Assessment & Plan (03/05/2024 11:21 AM EST): Pt using heroin, cocaine, benzos. Advised regarding potential risk of overdose, , and cardiovascular complications. Discussed with him the importance of treatment of anxiety and addiction, reach out to population health coach. Continue to FU with [facility] program. FU with me in 3-4 weeks. Moderate benzodiazepine use disorder 03/05/2024 Assessment & Plan (03/05/2024 11:22 AM EST): Chronically using Klonopin BID off the street, advised risk of overdose and being tainted with other drugs. Fractured dental sikh without loss of mat erial 02/21/2024 KATHYA [...] anti anxiety meds for now Discussed with arcelia pro sleep hygiene, fu with . IF[facility] [...] of MH treatment, reach out to a population health coach (he doesn't have one, he doesn't want [...] EDT): Unclear if he;'s taking Wellbutrin, last pecan picker was on 06/24 I called to fu with . I gave him [facility] info to reach out for an appt. He feels safe at home now and is able to reach out for safety. FU at next appt, needs to bring med bottles. Assessment & Plan (04/26/2023 3:25 PM EST): Pt probably has his anxiety exacerbated by methadone taper Counseled to discuss with population health coach regarding holding off on methadone taper Start Wellbutrin 150 mg and fu at next visit Continue close fu with therapist Saúl Angeles, I will refer to to help him coordinate referral to a psych Rx in the [facility]. Assessment & Plan (12/25/2022 9:50 AM EDT): [...] Visual impairment 11/08/2016 Drug induced insomnia 11/08/2016 Major depressive disorder with psychotic feature s [...] if needed Counseled to avoid alcohol, drugs Opioid use disorder 11/08/2016 05/19/19 25 Assessment & Plan (09/23/2023 10:08 AM EDT): Had a recent relapse on 06/2023, he continues to be off methadone. Advised to reach out to population health coach, discussed with him re early signs of [...] out for safety, and to work with population health coach - f/u in 3 months Assessment & Plan (04/26/2023 9:29 AM EST): Cutting down on methadone, is probably having increased anxiety due to this/?withdrawal Sx Counseled to slow down on taper and fu w population health coach We discussed importance of not using recreational substances Assessment & Plan (10/03/2022 12:04 PM EDT): Currently on methadone 30mg continues to live in snf where he has population health coach and support groups Assessment & Plan (09/03/2022 1:34 PM EDT): Currently on methadone 30mg in [facility] Continue residential recovery program in [place] Counseled to avoid alcohol, drugs, currently sober FU PRN Encounters * This document contains information received from the source organization and may not represent a complete record from that organization. Date Type Department Care Team Description 05/22/2024 Orders Only GENERIC EXTERNAL DATA DEPARTMENT Provider, Generic External Data 05/21/2024 Patient Outreach [facility] [address] [place] [address] Armand Dykes Recovery Supports 05/21/[address] [address] Lara Headley MD No Show 05/20/2024 9:00 AM EDT Office Visit [facility] [address] [place] [phone] Christian Arreguin MD Opioid dependence, uncomplicated (CMS/HCC) (Primary Dx) 05/20/2024 Refill [facility] [address] [place] [address] Chanel Thrasher RN Opioid dependence, uncomplicated (CMS/HCC) 05/20/2024 Travel 05/18/2024 Patient Outreach [address] [address] Jack Tavares Recovery Supports 05/18/2024 Telephone [facility] [address] [place] [address] Lara Headley MD No Show 05/15/2024 Refill [facility] [address] [place] [address] Chanel Thrasher RN Opioid dependence, uncomplicated (CMS/HCC) 05/15/2024 Patient Outreach [facility] [address] [place] [phone] Lara Headley MD Care Coordination (Outreach) 05/14/2024 Patient Outreach [facility] [address] [place] [address] Evaristo Canchola Recovery Supports 05/13/2024 9:00 AM EDT Clinical Support [address] [address] Chanel Thrasher RN Opioid dependence, uncomplicated (CMS/HCC) (Primary Dx) 05/13/2024 Travel 05/12/2024 Patient Outreach [address] [address] Evaristo Canchola Recovery Supports 05/12/2024 Patient Outreach [address] [address] Jack Tavares Recovery Supports 05/12/2024 Travel 05/11/2024 Patient Outreach [address] [address] Jack Tavares Recovery Supports 05/11/[address] [address] Chanel Thrasher, EMILY Opioid dependence, uncomplicated (CMS/HCC) 05/08/2024 Patient Outreach [address] [address] Lara Headley MD Care Coordination (CHW outreach for SDOH-patient declined to participate ) 05/08/2024 Patient Outreach [address] [address] Lara Headley MD Transition Of Care (Tcm) (HDF- scheduled , SDOH is positive tobacco screening is negative) 05/08/2024 Population Health Risk Score [facility] () Department [address] [place] [id number] Provider, Population Health Generic 05/08/2024 Patient Outreach [address] [address] Lara Headley MD Transition Of Care (Tcm) 05/08/2024 Patient Outreach [facility] [address] [place], [place] [phone] Lara Headley MD Care Coordination (Outreach) 05/07/2024 2:30 PM EDT Office Visit [address] [address] Dalia El MD Opioid dependence, uncomplicated (CMS/HCC) (Primary Dx) 05/07/2024 Patient Outreach [address] [phone] Jack Tavares Recovery Supports 05/07/2024 Patient Outreach [address] [address] Evaristo Canchola Recovery Supports 05/07/2024 Travel 05/06/2024 9:00 AM EDT Office Visit [address] [address] Christian Arreguin MD Opioid dependence, uncomplicated (CMS/HCC) (Primary Dx) 05/06/2024 Travel 05/05/2024 Patient Outreach [address] [address] Evaristo Canchola Recovery Supports 05/05/[address] [address] Dalia El MD Opioid dependence, uncomplicated (CMS/HCC) 05/04/2024 1:00 PM EDT Clinical Support [address] [address] Richard Woods RN Opioid dependence, uncomplicated (CMS/HCC) (Primary Dx) 05/04/2024 Patient Outreach [facility] [address] [place] [address] Lara Headley MD Care Coordination 05/04/2024 Patient Outreach [address] [address] Evaristo Canchola Recovery Supports 05/04/2024 Travel 05/04/[address] [address] Richard Woods RN Opioid dependence, uncomplicated (CMS/HCC) 04/30/[address] [address] Lara Headley MD No Show 04/29/2024 Patient Outreach [facility] [address] [place] [address] Lara Headley MD Care Coordination (Outreach) 04/28/[address] [address] Lara Headley MD Chart prep 04/27/2024 Orders Only GENERIC EXTERNAL DATA DEPARTMENT Provider, Generic External Data 04/26/2024 Orders Only GENERIC EXTERNAL DATA DEPARTMENT Provider, Generic External Data 04/24/2024 Patient Outreach [address] [address] Lara Headley MD Transition Of Care (Tcm) 04/23/2024 2:45 PM EST Office Visit [address] [address] Dalia El MD Opioid dependence, uncomplicated (CMS/HCC) (Primary Dx); Schizoaffective disorder, depressive type (CMS/HCC) 04/23/[address] [address] Lara Headley MD 04/23/[address] [address] Dalia El MD Opioid dependence, uncomplicated (CMS/HCC) 04/23/2024 Travel 04/23/2024 Patient Outreach [address] [address] Sharif Rider Recovery Supports 04/20/2024 Patient Outreach [address] [address] Jack Tavares Recovery Supports 04/17/2024 Patient Outreach [address] [address] Sharif Rider Recovery Supports 04/16/2024 Patient Outreach [facility] [address] [place] [address] Lara Headley MD Care Coordination (Outreach/) 04/16/2024 Travel 04/06/2024 Patient Outreach [address] [address] Lara Headley MD Transition Of Care (Tcm) 04/05/2024 Orders Only GENERIC EXTERNAL DATA DEPARTMENT Provider, Generic External Data 04/02/2024 2:30 PM EST Office Visit [address] [address] Dalia El MD Opioid type dependence, continuous (CMS/HCC) (Primary Dx) 04/02/2024 Refill [facility] [address] [facility] [place] [address] Richard Woods RN Opioid dependence, uncomplicated (CMS/HCC) 04/02/2024 Patient Outreach [facility] [address] [facility] [place] [address] Sharif Rider Recovery Supports 04/02/2024 Travel 04/01/2024 Telephone [facility] [address] [facility] [place] [address] Richard Woods RN 03/30/2024 Patient Outreach [address] [place] [address] Sharif Rider Recovery Supports 03/30/2024 Telephone [address] [place] [address] Lara Headley MD 03/30/2024 [address]ill [address] [place] [address] Richard Woods RN Opioid dependence, uncomplicated (CMS/HCC) 03/27/2024 11:30 AM EST Clinical Support [facility] [place] [address] Richard Woods RN Opioid dependence, uncomplicated (CMS/HCC) (Primary Dx) 03/27/2024 Travel 03/26/2024 Patient Outreach [facility] [address] [place] [address] Lara Headley MD Care Coordination (Outreach) 03/23/2024 Refill [facility] [place] [address] Richard Woods RN Opioid dependence, uncomplicated (CMS/HCC) 03/23/2024 Orders Only GENERIC EXTERNAL DATA DEPARTMENT Provider, Generic External Data 03/22/2024 Orders Only GENERIC EXTERNAL DATA DEPARTMENT Provider, Generic External Data 03/20/2024 9:50 AM EST Clinical Support [facility] [place] [address] Richard Woods RN Opioid dependence, uncomplicated (CMS/HCC) (Primary Dx) 03/20/2024 Patient Outreach [address] [address] Sharif Rider Recovery Supports 03/20/2024 Travel 03/19/2024 Patient Outreach [facility] [address] [place] [address] Lara Headley MD Care Coordination (Outreach) 03/17/2024 Refill [facility] [address] [place] [address] Richard Woods RN Opioid dependence, uncomplicated ([facility]/HCC) 03/12/2024 1:45 PM EST Office Visit [facility] [address] [place] [address] Dalia El MD Opioid dependence, uncomplicated (CMS/[facility]) (Primary Dx); Generalized anxiety disorder 03/12/2024 Refill [facility] [address] [place] [address] Richard Woods RN Opioid dependence, uncomplicated (CMS/HCC) 03/12/2024 Refill [facility] [address] [place] [address] Richard Woods RN Opioid dependence, uncomplicated ([facility]/HCC) 03/12/2024 Travel 03/12/2024 Patient Outreach [facility] [address] [place] [address] Lara Headley MD Transition Of Care (Tcm) 03/12/2024 Telephone [facility] [address] [place] [address] Lara Headley MD Error (VOID this visit) 03/11/2024 Patient Outreach [facility] [address] [place] [address] Lara Headley MD Care Coordination (Outreach) 03/11/2024 Patient Outreach [facility] [address] [place] [address] Armand Dykes 03/11/2024 Patient Outreach [facility] [address] [place] [address] Jack Tavares Recovery Supports 03/11/2024 Travel 03/10/2024 Patient Outreach [facility] [address] [place] [address] Evaristo Canchola Recovery Supports 03/09/2024 Patient Outreach [address] [address] Lara Headley MD Transition Of Care (Tcm) 03/09/[address] [address] Lara Headley MD 03/06/2024 Patient Outreach [address] [address] Armand Dykes Recovery Supports 03/05/2024 11:30 AM EST Clinical Support [address] [address] Richard Woods RN Opioid dependence, uncomplicated (CMS/HCC) (Primary Dx) 03/05/2024 10:45 AM EST Office Visit [address] [address] Lara Headley MD Generalized anxiety disorder (Primary Dx); Essential hypertension; Polysubstance abuse (CMS/HCC); Moderate benzodiazepine use disorder (CMS/HCC); Erectile dysfunction, unspecified erectile dysfunction type 03/05/[address] [address] Richard Woods RN Opioid dependence, uncomplicated (CMS/HCC) 03/05/2024 Patient Outreach [address] [address] Armand Dykes Recovery Supports 03/05/2024 Travel 03/04/[address] [address] Gaby Black [place] Chart prep 03/04/2024 Patient Outreach [facility] [address] [place], [place] [phone] Lara Headley MD Care Coordination (Outreach) 03/03/[address] [address] Lara Headley MD Record Request 03/03/[address] [address] Heidi Aguilera, PharmD 03/02/2024 Refill [facility] [address] [place] [address] Richard Woods RN Opioid dependence, uncomplicated (CMS/HCC) 03/02/2024 Orders Only GENERIC EXTERNAL DATA DEPARTMENT Provider, Generic External Data 03/02/2024 Patient Outreach [address] [address] Lara Headley MD Transition Of Care (Tcm) 02/28/2024 10:30 AM EST Clinical Support [facility] [address] [place] [address] Richard Woods RN Opioid dependence, uncomplicated (CMS/HCC) (Primary Dx) 02/28/2024 Travel 02/28/2024 Patient Outreach [address] [address] Lara Headley MD Transition Of Care (Tcm) 02/24/2024 Patient Outreach [facility] [address], [place] [phone] Lara Headley MD 02/24/2024 Patient Outreach [facility] [address], [place] [phone] Lara Headley MD Care Coordination (Outreach) 02/24/2024 Patient Outreach [facility] [address], [place] [phone] Lara Headley MD Care Coordination (Care Coordination) 02/24/2024 Orders Only GENERIC EXTERNAL DATA DEPARTMENT Provider, Generic External Data from Last 3 Months Immunizations Name Administration [...] Description 05/25/2024 1:30 PM EDT Office Visit [facility] [address] [place] [address] Armand Prieto DDS [address] [place] [address] 05/26/2024 10:15 AM EDT Office Visit [facility] [address] [place] [address] Violeta Correia MD [address] [place] [address] 05/27/2024 9:00 AM EDT Office Visit [address] [address] Christian Arreguin MD [address] [place] [address] 06/03/2024 9:00 AM EDT Office Visit [address] [address] Christian Arreguin MD [address] [place] [address] Health Maintenance Due Date Last Done Comments CT Colonography 1974 Colonoscopy 1974 Colorectal Cancer Screening 1974 FIT DNA/Cologuard 1974 FIT 1974 FOBT 1974 Sigmoidoscopy 1974 Family Planning (PISQ) 1989 Pneumococcal Vaccine: Pediatrics (0 to 5 Years) and At-Risk Patients (6 to 49) Years) (1 of 2 - PCV) 1993 Hepatitis B Vaccines (2 of 3 - 19+ 3-dose series) 04/24/2019 03/27/2019 Dental Oral Exam 01/19/2023 07/18/2022 Dental Prophylaxis 02/28/2023 08/27/2022 COVID-19 Vaccine (3 - 2023- season) 2023 02/23/2021, 09/19/2020 Dental X-Ray: Bitewings 12/27/2023 12/25/2022, 07/18 Zoster Vaccines (1 of 2) 2024 Depression Screening 04/23/2025 04/23/2024, 04/23/19 Tobacco Screening 04/23/2025 04/23/2024 SDOH Screening 05/08/2025 05/08/2024 Alcohol/Substance Use Screening 05/18/2025 05/18/2024 Dental X-Ray: Full Mouth 07/19/2025 07/18/2022 Lipid [...] on patient's age to complete this topic Hepatitis A Vaccines Aged Out No long er eligible based on patient's age to complete [...] on patient's age to complete this topic Goals Goal Patient Goal Type Associated Problems Recent Progress Patient-Stated? Author Take buprenorphine as prescribed General Yes Chanel Thrasher, EMILY Keep your medical appointments Lifestyle No Richard Woods RN Procedures Procedure Name Priority Date/Time Associated Diagnosis Comments MAGNESIUM Routine 05/22/2024 9:40 AM EDT COMPREHENSIVE METABOLIC PANEL Routine 05/22/2024 9:40 AM EDT DRUG MONITOR, PANEL 1, SCREEN, URINE Routine 05/22/2024 9:40 AM EDT CBC WITH AUTO DIFFERENTIAL Routine 05/22/2024 9:40 AM EDT URINALYSIS WITH REFLEX MICROSCOPIC Routine 05/22/2024 9:40 AM EDT POCT RIN-14 URINE DRUG SCREEN Routine 05/20/2024 9:54 AM EDT Opioid dependence, uncomplicated (CMS/HCC) POCT RIN-14 URINE DRUG SCREEN Routine 05/13/2024 9:09 AM EDT Opioid dependence, uncomplicated (CMS/HCC) POCT RIN-14 URINE DRUG SCREEN Routine 05/07/2024 2:03 PM EDT Opioid dependence, uncomplicated (CMS/HCC) POCT RIN-14 URINE DRUG SCREEN Routine 05/04/2024 1:08 PM EDT Opioid dependence, uncomplicated (CMS/HCC) DRUG MONITOR, PANEL 1, SCREEN, URINE Routine 04/27/2024 11:36 AM EST URINALYSIS WITH REFLEX MICROSCOPIC Routine 04/27/2024 11:36 AM EST ETHANOL Routine 04/26/2024 3:34 PM EST COMPREHENSIVE METABOLIC PANEL Routine 04/26/2024 3:34 PM EST CBC WITH AUTO DIFFERENTIAL Routine 04/26/2024 3:34 PM EST POCT RIN-14 URINE DRUG SCREEN Routine 04/23/2024 [...] AUTO DIFFERENTIAL Routine 02/24/2024 6:54 AM EST BITEWING - SINGLE RADIOGRAPHIC IMAGE Routine 12/25/2022 [...] Recently Relevant to Health Maintenance Results * (ABNORMAL) Drug Monitoring, Panel 1, Screen, Urine (05/22/2024 9:40 AM EDT) Only the most recent of6 resultswithin the time period is included. Pathologist [facility] Opiate Screen Urine POSITIVE(A) Not Detect [facility] Comment:Opiate cut-off is 30 0 ng/mL.Positive results are unconfirmed and should not be used fornon-medical purposes. Barbiturates, Urine Not Detected Not Detect [facility] Comment:Barbiturate cut-off is 200 ng/mL.Positive results are unconfirmed and should not be used fornon-medical purposes. Phencyclidine Screen Urine Not Detected Not Detect [facility] Comment:Phencyclidine cut-of f is 25 ng/mL.Positive results are unconfirmed and should not be used fornon-medical purposes. Amphetamine Screen Urine Not Detected Not Detect [facility] Comment:Amphetamine cut-off is 1000 ng/mL.Positive results are unconfirmed and should not be used fornon-medical purposes. Benzodiazepines Screen Urine Not Detected Not Detect [facility] Comment:Benzodiazepine cut-o ff is 200 ng/mL.Positive results are unconfirmed and should not be used fornon-medical purposes. Cocaine Screen Urine POSITIVE(A) Not Detect [facility] Comment:Cocaine cut-off is 3 00 ng/mL.Positive results are unconfirmed and should not be used fornon-medical purposes. Cannabinoid Screen Urine Not Detected Not Detect [facility] Comment:Cannabinoid cut-off is 50 ng/mL.Positive results are unconfirmed and should not be used fornon-medical purposes. Methadone Screen, Urine Not Detected Not Detect ng/mL [facility] Comment:Methadone cut-off is 300 ng/mL.Positive results are unconfirmed and should not be used fornon-medical purposes. FENTANYL URINE POSITIVE(A) Not Detect [facility] Comment:Fentanyl cut-off is 1 ng/mL.Positive results are unconfirmed and should not be used fornon-medical purposes. Oxycodone Urine Screen Not Detected Not Detect ng/mL [facility] Comment:Oxycodone cut-off is 100 ng/mL.Positive results are unconfirmed and should not be used fornon-medical purposes. Buprenorphine Screen Not Detected Not Detect ng/mL [facility] Comment:Buprenorphine cut-of f is 5 ng/mL.Positive results are unconfirmed and should not be used fornon-medical purposes. 05/22/2024 9:40 AM EDT 05/22/2024 9:49 AM EDT us Generic External Data Provider LAB URINE ORDERAB LES Final Result [facility] [address] [place] [phone] * (ABNORMAL) CBC auto differential (05/22/2024 9:40 AM EDT) Only the most recent of5 resultswithin the time period is included. White Blood Count 5.7 4.8 - 10.8 X10*3/uL [facility] Red Blood Count 4.67 4.60 - 5.80 X10*6/uL [facility] Hemoglobin 12.2(L) 14.0 - 18.0 g/dl [facility] Hematocrit 37.7(L) 42.0 - 52.0 % [facility] Mean Corpuscular Volume 80.7 80.0 - 98.0 fL [facility] Mean Corpuscular Hemoglobin 26.1(L) 27.0 - 33.0 pg [facility] Mean Corpuscular HGB Conc 32.4 31.0 - 36.0 g/dl [facility] Red Cell Distribution Width 15.4 11.0 - 16.0 % [facility] Platelet Count 303 160 - 400 X10*3/uL [facility] Mean Platelet Volume 8.4(L) 9.4 - 12.4 fL [facility] Neutrophils Percent Auto 54.0 45 - 73 % [facility] Imm Gran Pct Auto 0.2 0.0 - 0.4 % [facility] Lymphocytes Percent Auto 30.1 20 - 40 % [facility] Monocytes Percent Auto 14.1(H) 2 - 11 % [facility] Eosinophils Percent Auto 1.1 0 - 4 % [facility] Basophils Percent Auto 0.5 0 - 2 % [facility] NRBC Pct Auto 0.0 0.0 - 0.2 /100WBC [facility] Neutrophils Absolute Auto 3.1 2.0 - 8.3 x10*3/uL [facility] Imm Gran Abs Auto 0.01 0.00 - 0.03 X10*3/uL [facility] Lymphocytes Absolute Auto 1.7 1.2 - 4.9 X10*3/uL [facility] Monocytes Absolute Auto 0.8 0.1 - 1.2 X10*3/uL [facility] Eosinophils Absolute Auto 0.1 0.0 - 0.4 X10*3/uL [facility] Basophils Absolute Auto 0.0 0.0 - 0.2 X10*3/uL [facility] NRBC Abs Auto 0.000 0.0 - 0.012 X10*3/uL [facility] 05/22/2024 9:40 AM EDT 05/22/2024 9:49 AM EDT us Generic External Data Provider LAB BLOOD ORDERAB LES Final Result [facility] [address], [place] [phone] * Urinalysis w/reflex microscopic (05/22/2024 9:40 AM EDT) Only the most recent of3 resultswithin the time period is included. Color Urine Yellow [facility] Appearance Urine Clear [facility] PH 7.0 5.0 - 9.0 [facility] Glucose Urine UA Negative Negative mg/dL [facility] Urine Blood Negative Negative [facility] Specific Dustin - Urine 1.020 1.005 - 1.025 [facility] Urine Protein Trace Neg-Trace mg/dL [facility] Urine Ketones 15 Negative mg/dL [facility] Nitrite Urine Negative Negative [facility] Leukocyte Esterase Urine Negative Negative [facility] 05/22/2024 9:40 AM EDT 05/22/2024 9:49 AM EDT Narrative [facility] - 05/22/2024 9:55 AM EDT [id number], Clean Catch Generic External Data Provider LAB URINE ORDERAB LES Final Result Performing Organization Address [facility] Co de Phone Number [facility] [address] [place] [address] [phone] * Magnesium (05/22/2024 9:40 AM EDT) Only the most recent of2 resultswithin the time period is included. Pathologist [facility] Magnesium 2.0 1.6 - 2.6 mg/dL [facility] 05/22/2024 9:40 AM EDT 05/22/2024 9:49 AM EDT us Generic External Data Provider LAB BLOOD ORDERAB LES Final Result Performing Organization Address City/[facility]/ZIP Co de Phone Number [facility] [address] [place] [address] [phone] * (ABNORMAL) Comprehensive Metabolic Panel (05/22/2024 9:40 AM EDT) Only the most recent of4 resultswithin the time period is included. Sodium 137 135 - 145 mmol/L [facility] Potassium 4.0 3.3 - 5.1 mmol/L [facility] Chloride 101 96 - 108 mmol/L [facility] Carbon Dioxide 29 22 - 29 mmol/L [facility] Anion Gap 11(L) 12 - 20 [facility] Urea Nitrogen (BUN) 21(H) 9 - 16 mg/dL [facility] Creatinine, Serum 0.91 0.5 - 1.4 mg/dL [facility] Creatinine Clr Calc Pharmacy 92.3 [facility] Comment:eGFR (calculated fro m the MDRD study equation) and eCrCl(calculated from the Cockcroft-Gault equation) are based ondifferent parameters and may not yield comparable results.If eCrCl result is absurd, please check patient'sheight/weight. Estimated Glomerular Filt Rate >60 [facility] Comment:Chronic Kidney Disea se: Estimated GFR < 60 mL/min/1.56q3Nrmajl Kidney Disease: Estimated GFR < 15 mL/min/1.73m2 Glucose 90 60 - 115 mg/dL [facility] Calcium 9.7 8.4 - 10.2 mg/dL [facility] Bilirubin, Total 0.6 0.0 - 1.0 mg/dL [facility] Aspartate Amino Transferase 40(H) 5 - 37 U/L [facility] Alanine Aminotransferase 32 0 - 40 U/L [facility] Total Protein 8.1(H) 6.5 - 8.0 g/dL [facility] Albumin Level 4.5 3.5 - 5.0 g/dL [facility] Alkaline Phosphatase 75 39 - 117 U/L [facility] 05/22/2024 9:40 AM EDT 05/22/2024 9:49 AM EDT us Generic External Data Provider LAB BLOOD ORDERAB LES Final Result [facility] [address] [place] [phone] * POCT RIN-14 Urine Drug Screen (05/20/2024 9:54 AM EDT) Only the most recent of11 resultswithin the time period is included. THC [...] CARE TEST ENTER/EDIT OR DERABLES Final Result * Ethanol (04/26/2024 3:34 PM EST) Only the most recent of3 resultswithin the time period is included. ETHANOL (MG/DL) IN SER/PLAS <10 mg/dL [facility] Comment:Serum/plasma ethanol results are to be used formedical/treatment purposes only. 04/26/2024 3:34 PM EST 04/26/2024 3:37 PM EST us Generic External Data Provider LAB BLOOD ORDERAB LES Final Result [facility] [address] [place] [address] [phone] * COVID-19 ID NOW (RODRIGUEZ) (04/05/2024 8:51 AM EST) IDNOW SERIAL# [id number] [facility] COVID-19 TEST Negative Negative [facility] COVID-19 NOTE See Note [facility] Comment: Results are for the identification of SARS-CoV2 RNA. TheSARS-CoV2 RNA is generally detectable in respiratory samplesduring the acute phase of infection. Positive results areindicative of the presence of SARS-CoV-2 RNA; clinicalcorrelation with patient history and other diagnosticinformation is necessary to determine patient infectionstatus. Positive results do not rule out bacterial infectionor co- infection with other viruses.Testing facilities within the [facility] and itsterritories are required to report all [...] use by authorized laboratories.Testing performed on the [employer] NOW utilizing NAAT. 04/05/2024 8:51 AM EST 04/05/2024 8:54 AM EST Generic External Data Provider LAB MOLECULAR MARIANA [employer]NO[employer] ORDERABLES Final Result Performing Organization Address [facility]/ZIP Co de Phone Number [facility] [address] [place] [address] [phone] * (ABNORMAL) Urinalysis with Reflex to Microscopic (04/05/2024 8:23 AM EST) Only the most recent of2 resultswithin the time period is included. Color Urine Yellow [facility] Appearance Urine Clear [facility] PH 6.0 5.0 - 9.0 [facility] Glucose Urine UA Negative Negative mg/dL [facility] Urine Blood Negative Negative [facility] Specific Dustin - Urine >=1.030(H) 1.005 - 1.025 [facility] Urine Protein Trace Neg-Trace mg/dL [facility] Urine Ketones Negative Negative mg/dL [facility] Nitrite Urine Negative Negative [facility] Leukocyte Esterase Urine Negative Negative [facility] 04/05/2024 8:23 AM EST 04/05/2024 8:26 AM EST Generic External Data Provider LAB URINE ORDERAB LES Final Result Performing Organization Address City/[facility]/ZIP Co de Phone Number [facility] [address] [place] [address] [phone] * Acetaminophen level (04/05/2024 8:19 AM EST) Acetaminophen LAB <3 <30 mcg/mL [facility] 04/05/2024 8:19 AM EST 04/05/2024 8:26 AM EST us Generic External Data Provider LAB BLOOD ORDERAB LES Final Result Performing Organization Address City/[facility]/ZIP Co de Phone Number [facility] [address] [place] [address] [phone] * (ABNORMAL) Salicylate (04/05/2024 8:19 AM EST) Pathologist [facility] Salicylate <5.0(L) 15 - 30 mg/dL [facility] 04/05/2024 8:19 AM EST 04/05/2024 8:26 AM EST us Generic External Data Provider LAB BLOOD ORDERAB LES Final Result Performing Organization Address [facility]/ZIP Co de Phone Number [facility] [address] [place] [address] [phone] * Urinalysis, Complete, with Reflex to Culture (03/02/2024 9:00 AM EST) Color Urine Yellow [facility] Appearance Urine Clear [facility] PH 6.0 5.0 - 9.0 [facility] Glucose Urine UA Negative Negative mg/dL [facility] Urine Blood Negative Negative [facility] Specific Dustin - Urine 1.025 1.005 - 1.025 [facility] Urine Protein Negative Neg-Trace mg/dL [facility] Urine Ketones 40 Negative mg/dL [facility] Nitrite Urine Negative Negative [facility] Leukocyte Esterase Urine Negative Negative [facility] RBC Urine 0-2 0 - 2 /HPF [facility] Urine WBC 0-5 0 - 5 /HPF [facility] Urine Squamous Epithelial Cell 0-2 0 - 2 /HPF [facility] Urine Bacteria None Seen None Seen [facility] Hyaline Casts, Urine 0-2 0 - 2 /LPF [facility] 03/02/2024 9:00 AM EST 03/02/2024 9:05 AM EST Narrative [facility] - 03/02/2024 9:31 AM EST Urine, Clean Catch Generic External Data Provider LAB URINE ORDERAB LES Final Result Performing Organization Address [facility] Co de Phone Number [facility] [address] [place] [address] [phone] * (ABNORMAL) Hepatic Function Panel (02/24/2024 6:54 AM EST) Bilirubin, Total 0.8 0.0 - 1.0 mg/dL [facility] Bilirubin, Direct 0.3 0.0 - 0.5 mg/dL [facility] Aspartate Amino Transferase 36 5 - 37 U/L [facility] Alanine Aminotransferase 88(H) 0 - 40 U/L [facility] Total Protein 7.3 6.5 - 8.0 g/dL [facility] Albumin Level 3.9 3.5 - 5.0 g/dL [facility] Alkaline Phosphatase 89 39 - 117 U/L [facility] 02/24/2024 6:54 AM EST 02/24/2024 6:58 AM EST Generic External Data Provider LAB BLOOD ORDERAB LES Final Result Performing Organization Address [facility] Co de Phone Number [facility] [address] [place] [address] [phone] * (ABNORMAL) Basic Metabolic Panel (02/24/2024 6:54 AM EST) Sodium 136 135 - 145 mmol/L [facility] Potassium 3.9 3.3 - 5.1 mmol/L [facility] Chloride 103 96 - 108 mmol/L [facility] Carbon Dioxide 24 22 - 29 mmol/L [facility] Anion Gap 13 12 - 20 [facility] Urea Nitrogen (BUN) 18(H) 9 - 16 mg/dL [facility] Creatinine, Serum 0.82 0.5 - 1.4 mg/dL [facility] Creatinine Clr Calc Pharmacy 101.8 [facility] Comment:eGFR (calculated fro m the MDRD study equation) and eCrCl(calculated from the Cockcroft-Gault equation) are based ondifferent parameters and may not yield comparable results.If eCrCl result is absurd, please check patient'sheight/weight. Estimated Glomerular Filt Rate >60 [facility] Comment:Chronic Kidney Disea se: Estimated GFR < 60 mL/min/1.56e8Pqjdet Kidney Disease: Estimated GFR < 15 mL/min/1.73m2 Glucose 86 60 - 115 mg/dL [facility] Calcium 9.0 8.4 - 10.2 mg/dL [facility] 02/24/2024 6:54 AM EST 02/24/2024 6:58 AM EST us Generic External Data Provider LAB BLOOD ORDERAB LES Final Result [facility] [address] [place] [phone] * HIV Ab/Ag ([facility]) (09/14/2022 11:14 AM EDT) HIV AB/AG Nonreactive Nonreactive [facility] Comment:HIV-1 p24 Ag and/or HIV-1/HIV-2 Ab not detected.A test result that is nonreactive does not exclude thepossibility of exposure to or infection with HIV-1 and/orHIV-2. Nonreactive results in this assay for individualswith prior exposure to HIV-1 and/or HIV-2 may be due toantigen and antibody levels that are below the limit ofdetection of this assay.The [employer] HIV Ag/Ab Combo assay result andsupplemental assay results should be interpreted inconjunction with the patient's clinical presentation,history and other laboratory results. If the results areinconsistent with clinical evidence, additional testing issuggested to confirm the result. 09/14/2022 11:1 4 AM EDT 09/14/2022 2:37 PM EDT Lara Headley MD LAB BLOOD ORDERABLES Fin al Result Performing Organization Address [facility] de Phone Number [facility] [address] [place] [address] [phone] * Lipid Panel, Standard (09/14/2022 11:14 AM EDT) Triglycerides 85 mg/dL [facility] Comment:Desirable Triglyceri de: less than 150 mg/dLBorderline High Triglyceride 150-199 mg/dLHigh Triglyceride: 200-499 mg/dLVery High Triglyceride: greater than or equal to 5OO mg/dL Cholesterol 139 mg/dL [facility] Comment:Desirable Cholestero l: less than 200 mg/dLBorderline High Cholesterol: 200-239 mg/dLHigh Cholesterol: greater than 239 mg/dL LDL Cholesterol Calculated 79 mg/dl [facility] Comment:Desirable LDL: less than 100 mg/dLNear Optimal/Above Optimal LDL: 110- 129 mg/dLBorderline High LDL: 130-159 mg/dLHigh LDL: 160-189 mg/dLVery High LDL: greater than or equal to 190 mg/dL HDL Cholesterol 43 mg/dL [facility] Comment:Desirable HDL: great er than 40 mg/dL Note: This HDL assay may give artificially low results in patients with liver disease. 09/14/2022 11:1 4 AM EDT 09/14/2022 2:37 PM EDT us Lara Headley MD LAB BLOOD ORDERABLES Fin al Result Performing Organization Address [facility] Co de Phone Number [facility] [address] [place] [address] [phone] from Last 3 Months or Most Recently Relevant to Health Maintenance [place] [facility] Care Teams Director Of Corporate Communications Relationship Specialty Start Date End Date Lara Headley MD [address] [place] [phone] PCP - General Family Medicine 08/31/16
--- OUTSIDE RECORDS SUMMARY | 2024-05-22 13:31 | XMS_ITS | Encounter Summary ---
Author Organization [employer] Address [address] [facility] [address] [place] [address] Care Team Providers Care Container Maker Name Role Phone Lara Headley MD Primary Care Provider + Reason for Visit * Reason Comments Care Coordination Outreach Encounter Details Date Type Department Care Team (Latest Contact Info) Description 05/08/2024 Patient Outreach [facility] [address] [place], [place] [phone] Lara Headley MD [address] [place] [address] Care Coordination (Outreach) Social History Tobacco Use [...] encounter Progress Notes * Sangeetha Richardson - 05/08/2024 8:43 AM EDT CHW Sangeetha Richardson , placed [...] Description 05/25/2024 1:30 PM EDT Office Visit [facility] [address] [place] [address] Armand Prieto DDS [address] [place] [address] 05/26/2024 10:15 AM EDT Office Visit [facility] [address] [place], [place] [phone] Violeta Correia MD [address], [place] [phone] 05/27/2024 9:00 AM EDT Office Visit [address] [phone] Christian Arreguin MD [address] [place] [address] [phone] 06/03/2024 9:00 AM EDT Office Visit [address] [phone] Christian Arreguin MD [address] [place] [address] [phone] documented as of this encounter Goals Goal Patient Goal Type Associated Problems Recent Progress Patient-Stated? Author Keep your medical appointments Lifestyle Richard Newberry RN documented as of this encounter Visit Diagnoses Not on filedocumented in this encounter Additional Health Concerns Assessment Noted Time PHQ-9 Depression Total Score: 3 04/23/19 25 11:02 AM EST documented as of this encounter Care Teams Container Maker Relationship Specialty Start Date End Date Lara Headley MD [address] [place] [address] [phone] PCP - General Family Medicine 08/31/16 documented as of this encounter
--- OUTSIDE RECORDS SUMMARY | 2024-05-22 13:31 | XMS_ITS | Encounter Summary ---
Author Organization [employer] Address [address] [facility] [address] [place] [address] Care Team Providers Care Spray Worker Name Role Phone Lara Headley MD Primary Care Provider + Reason for Visit * Reason Comments Recovery Supports Encounter Details Date Type Department Care Team ([facility] st Contact Info) Description 05/07/2024 Patient Outreach [facility] [address] [place], [place] [phone] Evaristo Canchola [address] [place] [address] Recovery Supports Social History Tobacco Use Types [...] t he electric, gas, oil or water [employer] threatened to shut off services in your [...] encounter Progress Notes * Evaristo Canchola - 05/07/2024 2:39 PM EDT I met with Sudhir today. Setting: in person at [facility] Recovery Wellness Goals worked on: Physical [...] Description 05/25/2024 1:30 PM EDT Office Visit [facility] [address] [place] [address] Armand Prieto DDS [address] [place] [address] 05/26/2024 10:15 AM EDT Office Visit [address] [phone] Violeta Correia MD [address] [place] [address] [phone] 05/27/2024 9:00 AM EDT Office Visit [address] [phone] Christian Arreguin MD [address] [place] [address] [phone] 06/03/2024 9:00 AM EDT Office Visit [address] [phone] Christian Arreguin MD [address] [place] [address] [phone] documented as of this encounter Goals Goal Patient Goal Type Associated Problems Recent Progress Patient-Stated? Author Keep your medical appointments Lifestyle No Richard Woods, EMILY documented as of this encounter Visit Diagnoses Not on filedocumented in this encounter Additional Health Concerns Assessment Noted Time PHQ-9 Depression Total Score: 3 04/23/19 25 11:02 AM EST documented as of this encounter Care Teams Spray Worker Relationship Specialty Start Date End Date Lara Headley MD [address] [place] [phone] PCP - General Family Medicine 08/31/16 documented as of this encounter
[2024-05-22 14:22] VITALS: BP 143/82; PULSE 67; RESP 16; TEMP 36.8; O2SAT 99
--- NOTE | 2024-05-22 16:40 | PHA.MEDREC ---
Pharmacy Consult ? Medication Reconciliation Pharmacy has REVIEWED the medication reconciliation DONE BY NURSING. Confirmed with EMILY Saba that pt is only on clonidine and melatonin. Pt states he is selling his suboxone and doesn't like the other medications side effects from recent claim history.
[2024-05-22] MEDS: LORazepam 1 MG TABLET 2 MG PO (18:11)
--- NOTE | 2024-05-22 18:12 | PC.NURSE ---
prn ativan given for anxiety as requested. eating dinner with no issues.
--- NOTE | 2024-05-22 19:01 | PC.NURSE ---
patient appears to remain at rest lets his needs be known requested towels for shower appears in no distress
[2024-05-22] MEDS: Acetaminophen 325 MG TABLET 650 MG PO (19:28)
[2024-05-22 21:52] VITALS: BP 148/89; PULSE 73; RESP 16; TEMP 37.1; O2SAT 97
[2024-05-22 21:55] VITALS: BP 148/89
[2024-05-22 22:55] VITALS: BP 128/80; PULSE 70; RESP 16; TEMP 36.4; O2SAT 98
[2024-05-22 23:00] VITALS: BMI 32.2
[2024-05-22] MEDS: Melatonin 3 MG TABLET 9 MG PO (23:32)
--- NOTE | 2024-05-23 02:00 | PC.ADMIT ---
Pt is a 48 year old male admitted to the unit after referral from CARE team from [facility]. Arrived on unit at 2250 on 05/22/2024. Legal status: CV. Pt's current reported medical issues are HTN and asthma with a hx of KATHYA, tachycardia, NSTEMI and elevated troponins. Pt has been dx with Schizoaffective d/o; depressive type, substance abuse d/o, PTSD and pt is reporting AVH and depression w/SI. Pt denies tobacco use, etoh use but reports use of cocaine, heroin and fentanyl hours prior to admission. Pt was given 30mg Methadone in ED POD on 05/22/2024 @ 1014. Pt was not able to give a precipitant to admission, simply states that he has been using and has not slept in 3 days. Pt states he has been having AVH. [facility], falling asleep during admission process, unable to completely stay awake. Pt was pleasant with a slight irritability to him. Skin check unremarkable with exception of BL dry cracked heels. Provider consumer relations specialist aware of admission and orders obtained. Methadone will be verified in AM. Pt placed on 15 minute safety checks. States that he feels safe here in hospital.
[2024-05-23 08:00] VITALS: BP 132/84; PULSE 65; RESP 14; TEMP 36.9; O2SAT 99
[2024-05-23] MEDS: cloNIDine HCL 0.1 MG TABLET PO ×2 (08:57→21:53)
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
--- NOTE | 2024-05-23 12:24 | PC.NURSE ---
Pt signed a three day notice this shift. Providers and sw notified via email.
--- NOTE | 2024-05-23 18:35 | PC.NURSE ---
This parts data writer communicated to Violeta Polanco that the 30mg of Methadone that pt received in [facility], has not been confirmed. Answer from Violeta pending. Pt does not appear to be in withdrawal and denies this state as well.
[2024-05-23 21:50] VITALS: BP 134/87; PULSE 61; RESP 16; TEMP 36.4; O2SAT 98
[2024-05-23] MEDS: Melatonin 3 MG TABLET 9 MG PO (21:52)
[2024-05-23] MEDS: Acetaminophen 325 MG TABLET 650 MG PO (21:53)
[2024-05-24 07:37] VITALS: BP 140/62; PULSE 63; RESP 16; TEMP 37.2; O2SAT 100
[2024-05-24 09:08] VITALS: BP 141/87; PULSE 63; O2SAT 100
[2024-05-24] MEDS: cloNIDine HCL 0.1 MG TABLET PO ×3 (09:10→20:09)
[2024-05-24] MEDS: Acetaminophen 325 MG TABLET 650 MG PO ×2 (09:28→20:11)
[2024-05-24 15:35] VITALS: BP 146/83; PULSE 66; O2SAT 100
[2024-05-24 20:00] VITALS: BP 154/90; PULSE 67; RESP 16; TEMP 36.4; O2SAT 100
[2024-05-24] MEDS: Melatonin 3 MG TABLET 9 MG PO (20:09)
--- NOTE | 2024-05-24 20:11 | HO.PSYCHPN ---
Subjective Subjective Date of Service: 05/24/24 Reason For Visit: SI Interim History: no complaints, concerns, requests. per staff, quiet, pleasant, visible. denies opiate withdrawal. dep/anx 5 last brad. slept 8 hours. Mental Status Exam Mental Status Exam Narrative: Pt is alert and oriented; behavior is cooperative, friendly and calm; patient is not in distress; dressed in casual attire with good hygiene and grooming; mood is described as pretty good and affect congruent, calm, though irritable as well; eye contact appropriate; Speech is normal rate, volume and prosody and not pressured; no psychomotor agitation/retardation present; thought process is organized and goal directed; Thought content is on discharge on saturday; otherwise pertinent to relevant topics and without any delusional content, paranoid ideations or grandiosity; denies any SI/HI. There is no evidence of perceptual disturbance. Patients insight and judgment are fair Diagnostics Vital Signs (24Hr): Vital Signs - 24 hr 05/23/24 21:50 05/24/24 07:37 05/24/24 09:08 Temperature 97.6 F 99.0 F Pulse Rate 61 63 63 Respiratory Rate 16 16 Blood Pressure 134/87 140/62 H 141/87 H Pulse Oximetry 98 100 100 Oxygen Delivery Method Room Air Room Air Room Air 05/24/24 15:35 Temperature Pulse Rate 66 Respiratory Rate Blood Pressure 146/83 H Pulse Oximetry 100 Oxygen Delivery Method Room Air BMI result Body Mass Index 32.2 Labs 05/22/24 09:40 05/22/24 09:40 Medications Medications Current Medications Acetaminophen (Acetaminophen 325 Mg Tablet) 650 mg PO Q6H PRN PRN Reason: Headache/Pain, Scale 1-10 Last Admin: 05/24/24 09:28 Dose: 650 mg Al Hydroxide/Mg Hydroxide (Magnesium Hydrox/Alum Hydrox 30 Ml Oral.Susp) 30 ml PO Q6H PRN PRN Reason: Heartburn/Nausea Clonidine HCl (Clonidine Hcl 0.1 Mg Tablet) 0.1 mg PO DAILY@1300 PRN PRN Reason: Anxiety Clonidine HCl (Clonidine Hcl 0.1 Mg Tablet) 0.1 mg PO TID SHARIF; Protocol Last Admin: 05/24/24 15:36 Dose: 0.1 mg Hydroxyzine HCl (Hydroxyzine Hcl 25 Mg Tablet) 25 mg PO Q6H PRN PRN Reason: mild anxiety Magnesium Hydroxide (Milk Of Magnesia 30 Ml Oral.Susp) 30 ml PO DAILY PRN PRN Reason: Constipation Melatonin (Melatonin 3 Mg Tablet) 9 mg PO BID PRN PRN Reason: sleep Last Admin: 05/23/24 21:52 Dose: 9 mg Nicotine Polacrilex (Nicotine Polacrilex 2 Mg Gum) 4 mg BUCCAL Q2H PRN PRN Reason: Nicotine Cravings Trazodone HCl (Trazodone Hcl 50 Mg Tablet) 50 mg PO BEDTIME MRX1 PRN PRN Reason: Insomnia Allergies Allergies Allergy/AdvReac Type Severity Reaction Status Date / Time No Known Allergies Allergy Verified 05/22/24 09:25 [No Known Allergies*] Assessment & Plan Assessment & Plan (1) Opioid use disorder: Status: Acute Code(s): F11.90 - Opioid use, unspecified, uncomplicated (2) Cocaine use disorder: Status: Acute Code(s): F14.10 - Cocaine abuse, uncomplicated (3) Substance induced mood disorder: Status: Acute Code(s): F19.94 - Other psychoactive substance use, unspecified with psychoactive substance-induced mood disorder Plan 05/23: pt not interested in any medications other than clonidine. not interested in substance use treatment referrals. restart suboxone once in moderate withdrawal. dispo planning. 05/24: still not in sufficient withdrawal to restart suboxone. no complaints or requests. continue current mgmt. Reason for continued inpatient stay Substantial Risk for: stable for discharge Time Spent With Patient Time: Total time managing care of this patient today ____ minutes.
[2024-05-24] MEDS: hydrOXYzine HCL 25 MG TABLET PO (23:25)
[2024-05-24] MEDS: traZODone HCL 50 MG TABLET PO (23:25)
--- NOTE | 2024-05-25 | ECG_ITS ---
Test Reason : CP Blood Pressure : */* mmHG Vent. Rate : 67 BPM Atrial Rate : 67 BPM P-R Int : 162 ms QRS Dur : 98 ms QT Int : 398 ms P-R-T Axes : 73 1 34 degrees QTcB Int : 420 ms Normal sinus rhythm Minimal voltage criteria for LVH, may be normal variant ( Sokolow-Tom ) Borderline ECG No significant changes when compared with the previous EKG of 22 may 2024 Referred By: Temo Cooper Electronically Signed By: RUBEN EUCEDA
[2024-05-25 00:54] VITALS: BP 155/94
[2024-05-25] MEDS: cloNIDine HCL 0.1 MG TABLET PO ×4 (00:54→19:30)
--- NOTE | 2024-05-25 00:58 | PC.NURSE ---
Pt c/o chest pain @ 0015, v/s T-97.5, P-69, BP-155/94. on call pharmacy technician provider informed and put in order for EKG and PRN Clonidine one time. EKG done and Clonidine 0.1mg administered.
[2024-05-25] MEDS: Acetaminophen 325 MG TABLET 650 MG PO ×3 (05:49→22:37)
[2024-05-25 08:39] VITALS: BP 142/87; PULSE 78; RESP 16; TEMP 37.1; O2SAT 100
--- NOTE | 2024-05-25 09:56 | HO.PSYCHPN ---
Subjective Subjective Date of Service: 05/25/24 Reason For Visit: SI Subjective Notes: 3 Day Interim History: Active on unit. Patient reports feeling pretty good today; discussed medications, however, pt states he doesn't want to take any medications because I don't like how they make me feel . Patient reports his plan for sobriety is to attend recovery groups and reaching out to asset recovery specialist. 3 day up on 05/27/24; pt is requesting to be discharged home tomorrow. Pt stated, I'm feeling good. I need to leave tomorrow so I can pay my rent and my phone bill. I'm going to stay sober . denies SI/HI/VH/AH. Medication Compliance: Yes Side effects from medications: No Attending Groups: Intermittent Mental Status Exam Mental Status Exam Narrative: Pt is alert and oriented; behavior is cooperative, friendly and calm; dressed in casual attire; mood is described as good ; eye contact appropriate; Speech is normal rate, volume and not pressured; thought process is organized and goal directed; Thought content is on discharge and sobriety; otherwise pertinent to relevant topics and without any delusional content, paranoid ideations or grandiosity; denies SI/HI/VH/AH. Diagnostics Vital Signs (24Hr): Vital Signs - 24 hr 05/24/24 15:35 05/24/24 20:00 05/25/24 00:54 Temperature 97.6 F Pulse Rate 66 67 Respiratory Rate 16 Blood Pressure 146/83 H 154/90 H 155/94 H Pulse Oximetry 100 100 Oxygen Delivery Method Room Air Room Air 05/25/24 08:39 Temperature 98.7 F Pulse Rate 78 Respiratory Rate 16 Blood Pressure 142/87 H Pulse Oximetry 100 Oxygen Delivery Method Room Air BMI result Body Mass Index 32.2 Labs 05/22/24 09:40 05/22/24 09:40 Medications Medications Current Medications Acetaminophen (Acetaminophen 325 Mg Tablet) 650 mg PO Q6H PRN PRN Reason: Headache/Pain, Scale 1-10 Last Admin: 05/25/24 05:49 Dose: 650 mg Al Hydroxide/Mg Hydroxide (Magnesium Hydrox/Alum Hydrox 30 Ml Oral.Susp) 30 ml PO Q6H PRN PRN Reason: Heartburn/Nausea Clonidine HCl (Clonidine Hcl 0.1 Mg Tablet) 0.1 mg PO DAILY@1300 PRN PRN Reason: Anxiety Clonidine HCl (Clonidine Hcl 0.1 Mg Tablet) 0.1 mg PO TID SHARIF; Protocol Last Admin: 05/25/24 08:41 Dose: 0.1 mg Hydroxyzine HCl (Hydroxyzine Hcl 25 Mg Tablet) 25 mg PO Q6H PRN PRN Reason: mild anxiety Last Admin: 05/24/24 23:25 Dose: 25 mg Magnesium Hydroxide (Milk Of Magnesia 30 Ml Oral.Susp) 30 ml PO DAILY PRN PRN Reason: Constipation Melatonin (Melatonin 3 Mg Tablet) 9 mg PO BID PRN PRN Reason: sleep Last Admin: 05/24/24 20:09 Dose: 9 mg Nicotine Polacrilex (Nicotine Polacrilex 2 Mg Gum) 4 mg BUCCAL Q2H PRN PRN Reason: Nicotine Cravings Trazodone HCl (Trazodone Hcl 50 Mg Tablet) 50 mg PO BEDTIME MRX1 PRN PRN Reason: Insomnia Last Admin: 05/24/24 23:25 Dose: 50 mg Allergies Allergies Allergy/AdvReac Type Severity Reaction Status Date / Time No Known Allergies Allergy Verified 05/22/24 09:25 [No Known Allergies*] Assessment & Plan Assessment & Plan (1) Schizoaffective disorder, depressive type: Status: Acute Code(s): F25.1 - Schizoaffective disorder, depressive type (2) PTSD (post-traumatic stress disorder): Status: Acute Code(s): F43.10 - Post-traumatic stress disorder, unspecified (3) Opioid use disorder: Status: Acute Code(s): F11.90 - Opioid use, unspecified, uncomplicated (4) Cocaine use disorder: Status: Acute Code(s): F14.10 - Cocaine abuse, uncomplicated Plan 05/23: pt not interested in any medications other than clonidine. not interested in substance use treatment referrals. restart suboxone once in moderate withdrawal. dispo planning. 05/24: still not in sufficient withdrawal to restart suboxone. no complaints or requests. continue current mgmt. 05/25: Active on unit. Patient reports feeling pretty good today; discussed medications, however, pt states he doesn't want to take any medications because I don't like how they make me feel . Patient reports his plan for sobriety is to attend recovery groups and reaching out to asset recovery specialist. 3 day up on 05/27/24; pt is requesting to be discharged home tomorrow. Pt stated, I'm feeling good. I need to leave tomorrow so I can pay my rent and my phone bill. I'm going to stay sober . denies any withdrawal symptoms. denies SI/HI/VH/AH. Patient educated on: diagnosis, medication risk/benefits and substance abuse Reason for continued inpatient stay Substantial Risk for: stable for discharge Time Spent With Patient Time: Total time managing care of this patient today _20___ minutes.
[2024-05-25 14:03] VITALS: BP 154/94
[2024-05-25 19:30] VITALS: BP 167/102
[2024-05-25 20:00] VITALS: BP 150/90; PULSE 88; RESP 16; O2SAT 98
--- NOTE | 2024-05-25 20:22 | PC.NURSE ---
E.H. notified of new BP of 150/90.
[2024-05-25] MEDS: Magnesium Hydrox/Alum Hydrox 30 ML ORAL.SUSP PO (20:29)
[2024-05-25] MEDS: Melatonin 3 MG TABLET 9 MG PO (20:47)
[2024-05-25] MEDS: traZODone HCL 50 MG TABLET PO ×2 (20:53→21:58)
[2024-05-25] MEDS: hydrOXYzine HCL 25 MG TABLET PO (21:44)
[2024-05-25] MEDS: Ibuprofen 800 MG TABLET PO (23:24)
[2024-05-26 00:03] VITALS: BP 150/90; PULSE 66; O2SAT 99
[2024-05-26] MEDS: traZODone HCL 50 MG TABLET PO (00:35)
[2024-05-26] MEDS: Magnesium Hydrox/Alum Hydrox 30 ML ORAL.SUSP PO (01:12)
[2024-05-26] MEDS: QUEtiapine Fumarate 100 MG TABLET PO (02:08)
[2024-05-26 07:57] VITALS: BP 156/95; PULSE 95; RESP 16; TEMP 37.2; O2SAT 99
[2024-05-26] MEDS: amLODIPine Besylate 5 MG TABLET PO (08:29)
[2024-05-26] MEDS: cloNIDine HCL 0.1 MG TABLET PO (08:29)
[2024-05-26] MEDS: Naloxone HCl Nasal TAKE HOME 4 MG SPRAY 8 MG NOSTRILALT (08:36)
--- NOTE | 2024-05-26 09:08 | P.DS_ITS ---
DS: Providers Provider Date of Service: 05/26/24 Date of admission: 05/22/24 21:43 Date of discharge: 05/26/24 Primary care physician: Lara Headley MD Attending physician on admission: Temo Cooper Attending physician on discharge: Ever Marshall Discharging clinician: Susanna Mejia DS: Diagnosis Discharge Diagnosis (1) Schizoaffective disorder, depressive type: Status: Acute (2) PTSD (post-traumatic stress disorder): Status: Acute (3) Opioid use disorder: Status: Acute (4) Cocaine use disorder: Status: Acute DS: Medications Discharge Medications Home Medications: Home Medications ?Medication ?Instructions ?Recorded ?Confirmed melatonin 10 mg tablet 10 mg PO BID PRN sleep 05/22/24 05/22/24 buprenorphine 8 mg-naloxone 2 mg 2 film sublingual DAILY 05/23/24 05/23/24 sublingual film (Suboxone) Previous Rx's ?Medication ?Instructions ?Recorded clonidine HCl 0.1 mg tablet See Rx Instructions .Route 05/04/24 .COMPLEX 30 days #90 tabs Mental Status Exam Mental Status Exam Narrative: Pt is alert and oriented; behavior is cooperative, friendly and calm; dressed in casual attire; mood is described as good ; eye contact appropriate; Speech is normal rate, volume and not pressured; thought process is organized and goal directed; Thought content is on discharge and sobriety; denies SI/HI/VH/AH. Data Data Completed and Pending Completed studies during hospitalization [Text1]: 05/22/24 09:40 WBC 5.7 RBC 4.67 Hgb 12.2 L Hct 37.7 L MCV 80.7 MCH 26.1 L MCHC 32.4 RDW 15.4 Plt Count 303 MPV 8.4 L Immature Gran % (Auto) 0.2 Neut % (Auto) 54.0 Lymph % (Auto) 30.1 [place] % (Auto) 14.1 H Eos % (Auto) 1.1 Baso % (Auto) 0.5 Lymph # (Auto) 1.7 [place] # (Auto) 0.8 Eos # (Auto) 0.1 Baso # (Auto) 0.0 Abs Immat Gran (auto) 0.01 Absolute Neuts (auto) 3.1 Absolute Nucleated RBC 0.000 Nucleated RBC % (auto) 0.0 Sodium 137 Potassium 4.0 Chloride 101 Carbon Dioxide 29 Anion Gap 11 L BUN 21 H Creatinine 0.91 Estim Creat Clear Calc 92.3 Estimated GFR > 60 Random Glucose 90 Calcium 9.7 Magnesium 2.0 Total Bilirubin 0.6 AST 40 H ALT 32 Alkaline Phosphatase 75 Total Protein 8.1 H Albumin 4.5 Urine Color Yellow Urine Appearance Clear Urine pH 7.0 Ur Specific [place] 1.020 Urine Protein Trace Urine Glucose (UA) Negative Urine Ketones 15 Urine Blood Negative Urine Nitrite Negative Ur Leukocyte Esterase Negative Urine Opiates Screen POSITIVE H Ur Buprenorphine Scrn Not Detected Ur Oxycodone Screen Not Detected Urine Methadone Screen Not Detected Urine Fentanyl Screen POSITIVE H Ur Barbiturates Screen Not Detected Ur Phencyclidine Scrn Not Detected Ur Amphetamines Screen Not Detected U Benzodiazepines Scrn Not Detected Urine Cocaine Screen POSITIVE H U Marijuana (THC) Screen Not Detected DS: Summary Hospital Course Hospital Course: per CARE team shira pt self-presented to [facility] reporting having been using fentanyl and cocaine for the past 2-3 days and therefore had not slept and had a headache. he stated he walked to the hospital to get help and get into a program. reported vague SI and periods of AVH. discharged from on 04/25, did well for a couple of days before relapsing. denies substance use is his main problem. stated, i just want to get help so that i do not spend all of my money on may 26 on drugs. i need to make it last. on interview with , pt stated, i want to stay until saturday so i can pay bills. also reported depression, anxiety, PTSD. declined to take any medication for mental illness other than clonidine. waiting to go into moderate withdrawal to restart suboxone. denies SI/SIBI/HI/AVH. no other complaints or requests. pt not interested in any medications other than clonidine. not interested in substance use treatment referrals. restart suboxone once in moderate withdrawal. dispo planning. still not in sufficient withdrawal to restart suboxone. no complaints or requests. continue current mgmt. Active on unit. Patient reports feeling pretty good today; discussed medications, however, pt states he doesn't want to take any medications because I don't like how they make me feel . Patient reports his plan for sobriety is to attend recovery groups and reaching out to assistant field hockey coach. 3 day up on 05/27/24; pt is requesting to be discharged home tomorrow. Pt stated, I'm feeling good. I need to leave tomorrow so I can pay my rent and my phone bill. I'm going to stay sober . denies any withdrawal symptoms. denies SI/HI/VH/AH. Patient continues to report feeling good and looking forward to discharge ; denies SI/HI/VH/AH. Pt plans on following up with his outpatient providers. Status at Discharge Cognitive/behavioral status at discharge: Patient has a safety plan that includes presenting to the closest ER or calling 911 if feeling unsafe. Functional status at discharge: independent ambulation Overall status at discharge: patient is back to baseline Time Spent with Patient Time attestation: Total time managing care of this patient today _20___ minutes. Time spent: Less than 30 minutes Discharge Plan Discharge Anticipated Discharge Date/Time: 05/26/24 10:00 Patient Disposition: Home, Self-Care Discharge Diagnosis: Schizoaffective d/o, PTSD, cocaine use d/o, opioid use d/o Referrals: Lara Headley MD [Primary Care Provider] - 06/11/24 10:45 am (05-25-24 Your follow up appt has been scheduled with Lara Headley on 06-11-24 @ 10:45am. Fax summary to [phone]) Discharge Medications: Continued clonidine HCl 0.1 mg tablet See Rx Instructions .ROUTE .COMPLEX 30 Days Qty: 90 0RF Rx Instructions: take 1 tab in the morning and 1 at bedtime; may take 1 tab daily as needed for anxiety melatonin 10 mg tablet 10 mg PO BID PRN (Reason: sleep) buprenorphine-naloxone [Suboxone] 8-2 mg film 2 film sublingual DAILY Patient Comments: Pt states he took a few days ago Discharge Orders: Discharge Order (Routine); Ordered 05/26/24 Ordered By: Susanna Mejia Diet: Regular diet Activity on Discharge: As tolerated Stand Alone Forms: Patient Portal Discharge page, Community Support Print Language: Setswana Care Plan Goals: Maintain mood and safe behaviors Take medications as prescribed Continue to pursue sobriety Practice coping skills Continue with outpatient providers and reach out to them as needed Health Concerns: Mood stability and behaviors Sobriety Plan of Treatment: Follow up with your PCP, psychiatric provider and other outpatient providers regarding above concerns Take medications as prescribed Assessment: Patient has a safety plan that includes presenting to the closest ER or calling 911 if feeling unsafe. Discharge Date/Time: 05/26/24 10:10
== END 2024-05-26 10:10 | disposition home or self-care (01) | DRG 750 ==
LOC: HO.ED 11:24 → HO.PADLT16 21:57
PROVIDERS: Admitting Provider Psychiatry & Neurology Psychiatry; Emergency Provider Emergency Medicine; PCP Internal Medicine; Responsible Provider Registered Nurse; Visit Provider Psychiatry & Neurology Psychiatry
DX: F25.1 Schizoaffective disorder, depressive type (principal); F11.20 Opioid dependence, uncomplicated; F19.94 Other psychoactive substance use, unspecified with psychoactive substance-induced mood disorder; F14.10 Cocaine abuse, uncomplicated; F43.10 Post-traumatic stress disorder, unspecified; Z62.810 Personal history of physical and sexual abuse in childhood; Z79.899 Other long term (current) drug therapy
CPT/HCPCS: 36415; 80053; 80307; 81003; 83735; 85025; 93005; 99285; S9485

== ENCOUNTER → 2024-05-22 09:25 | Outpatient (BNV) | payer MEDICAID, SELFPAY | PROVIDERS: Emergency Provider Emergency Medicine; PCP Internal Medicine; Visit Provider Internal Medicine Cardiovascular Disease | DX: R00.0 Tachycardia, unspecified (principal) | CPT/HCPCS: 93010 ==

== ENCOUNTER 2024-05-22 21:43 | Outpatient (BNV) | payer MEDICAID, SELFPAY | END 2024-05-25 00:37 | PROVIDERS: Admitting Provider Psychiatry & Neurology Psychiatry; Emergency Provider Emergency Medicine; PCP Internal Medicine; Responsible Provider Registered Nurse; Visit Provider Internal Medicine | DX: R07.9 Chest pain, unspecified (principal) | CPT/HCPCS: 93010 ==

== ENCOUNTER → 2024-05-22 21:43 | Outpatient (BNV) | payer OTHER, SELFPAY | PROVIDERS: Admitting Provider Psychiatry & Neurology Psychiatry; Emergency Provider Emergency Medicine; PCP Internal Medicine; Responsible Provider Registered Nurse; Visit Provider Psychiatry & Neurology Psychiatry | DX: F11.90 Opioid use, unspecified, uncomplicated (principal); F14.10 Cocaine abuse, uncomplicated; F19.94 Other psychoactive substance use, unspecified with psychoactive substance-induced mood disorder | CPT/HCPCS: 99231 ==

== ENCOUNTER 2024-06-01 16:20 | Emergency (ER) | payer MEDICAID, SELFPAY ==
[2024-06-01 16:25] VITALS: BP 175/104; PULSE 124; RESP 16; TEMP 36.8; O2SAT 98; BMI 31.9
--- NOTE | 2024-06-01 16:34 | ECG_ITS ---
Test Reason : COCAINE USE Blood Pressure : */* mmHG Vent. Rate : 106 BPM Atrial Rate : 106 BPM P-R Int : 158 ms QRS Dur : 96 ms QT Int : 340 ms P-R-T Axes : 53 -21 38 degrees QTcB Int : 451 ms Sinus tachycardia Moderate voltage criteria for LVH, may be normal variant ( R in aVL , [place] product ) Borderline ECG When compared with ECG of 25-May-2024 00:37, Vent. rate has increased by 39 bpm Referred By: Trang Canales Electronically Signed By: Lance Lopez
--- NOTE | 2024-06-01 16:54 | ED_ITS ---
HPI - General Adult General Chief complaint: Psychiatric Symptoms Stated complaint: crisis eval Time Seen by Provider: 06/01/24 16:34 Source: patient Mode of arrival: ambulatory Limitations: no limitations History of Present Illness ED Provider: Trang Canales PA-C HPI narrative: 48 year old male with PMHx substance use disorder, schizoaffective disorder, opioid use disorder, cocaine use disorder, PTSD who presents to the ED c/o increasing anxiety, depression, drug use, SI x months. Reports SI without a specific plan, however states it would be easy . Denies desire to harm others. Reports recently leaving [facility] unit after it made him crazy and spending his money on drugs and hookers. Reports smoking cocaine and heroin today, however now wants to get help for his anxiety and depression and to stop using drugs. Related Data Home Medications ?Medication ?Instructions ?Recorded ?Confirmed melatonin 10 mg tablet 10 mg PO BID PRN sleep 05/22/24 06/02/24 buprenorphine 8 mg-naloxone 2 mg 2 film sublingual DAILY 05/23/24 06/02/24 sublingual film (Suboxone) clonazepam 0.5 mg tablet 0.5 mg PO DAILY PRN anxiety attack 06/02/24 06/02/24 quetiapine 100 mg tablet 100 mg PO BEDTIME PRN insomnia 06/02/24 06/02/24 Previous Rx's ?Medication ?Instructions ?Recorded clonidine HCl 0.1 mg tablet See Rx Instructions .Route 05/04/24 .COMPLEX 30 days #90 tabs Allergies Allergy/AdvReac Type Severity Reaction Status Date / Time No Known Allergies Allergy Verified 06/01/24 16:29 [No Known Allergies*] Review of Systems 2 Constitutional: Constitutional: Reports no additional constitutional complaints, Denies chills, Denies fever(s) and Denies night sweats Eyes: Eyes: Reports no additional eye complaints, Denies blurry vision, Denies change in vision, Denies loss of vision and Denies eye pain ENT: Denies dizziness Cardiovascular: Cardiovascular: Reports no additional cardiovascular complaints, Denies chest pain and Denies dyspnea Respiratory: Respiratory: Reports no additional respiratory complaints and Denies dyspnea Gastrointestinal: Gastrointestinal: Reports no additional gastrointestinal complaints and Denies abdominal pain Genitourinary: Genitourinary: Reports no additional male genitourinary complaints, Denies hematuria, Denies difficulty urinating, Denies dysuria, Denies urinary frequency and Denies urinary incontinence Musculoskeletal: Musculoskeletal: Reports no additional musculoskeletal complaints, Denies numbness and Denies tingling Neurologic: Denies dizziness, Denies loss of vision, Denies numbness and Denies tingling Psychiatric: Psychiatric: Reports as per HPI, Reports anxiety, Reports depression, Denies homicidal ideation and Reports suicidal ideation Endocrine: Endocrine: Reports no additional endocrine complaints Hematologic/Lymphatic: Hematologic/Lymphatic: Reports no additional hematologic/lymphatic complaints Allergic/Immunologic: Allergic/Immunologic: Reports no additional allergic/immunologic complaints PMFSH Past Medical History Attestation statement: The following information was validated with the patient. Source: old records reviewed and nursing notes reviewed Medical History Tachycardia Elevated troponin Hypermagnesemia KATHYA (acute kidney injury) Schizoaffective disorder, depressive type Suicidal ideation Polysubstance abuse Opioid use disorder Polysubstance abuse NSTEMI (non-ST elevated myocardial infarction) PTSD (post-traumatic stress disorder) Cocaine use disorder Polysubstance use disorder Social History Social History Household Members: None Household Members Other:: dog, Melvin Housing: Apartment Do you presently have visiting nurse or other home services: No Unable to assess alcohol history related to: Unknown Alcohol intake: never Patient Tobacco Use Status: Never used Tobacco e-Cigarette/Vaping Use: Never Used Second Hand Smoke Exposure: No Use of substances other than those prescribed or required for medical reasons: Yes Substance Use Type: Crack/Cocaine and Heroin Advance Directives: No Advance Directives Information Provided: No Do you have a plan to hurt others: No Plan service: No Sexual orientation: Straight/Heterosexual Physical Exam ED Vital Signs: Vital Signs - 24 hr 06/01/24 16:25 06/01/24 20:07 Temperature 98.2 F Pulse Rate 124 H 76 Respiratory Rate 16 16 Blood Pressure 175/104 H 144/85 H Pulse Oximetry 98 98 Oxygen Delivery Method Room Air Room Air BMI result Body Mass Index 31.9 Const General: cooperative, no acute distress, alert and awake Nutritional Appearance: well nourished Orientation/consciousness: patient oriented x3 Limitations: no limitations HENMT Head: Yes normal to inspection and Yes atraumatic Ears: hearing grossly normal bilaterally and external ears normal General nose exam: Normal external nose present, no nasal discharge noted and no epistaxis Face and sinus: Yes normal facial exam, No abrasion and No laceration Mouth: Normal oral and palatal mucosa present, no drooling and no muffled voice Eyes General: appearance normal, both eyes and all related structures Periorbital: periorbital findings normal Eyelids: Yes eyelids normal Conjunctivae: conjunctivae normal Pupils: Equal, round and reactive pupils present EOM: EOMs intact bilaterally Neck Neck: Yes normal visual inspection, Yes full ROM and Yes no lymphadenopathy Chest Chest palpation & inspection: normal inspection of the chest Resp Effort & Inspection: normal respiratory effort and able to speak in complete sentences GI Inspection: Yes normal to inspection Neuro General: patient oriented x3, moves all extremities and CN's II-XI intact bilaterally Cranial nerves: Yes Equal, round and reactive pupils present Cognition (Neuro): normal cognition Extrem General: Yes normal to inspection, Yes full ROM and Yes capillary refill normal Psych Appearance: grossly normal Mental Status: mental status grossly normal Attitude: cooperative Thought process: Circumstantial thought process present Thought content: Suicidality present Course Reevaluation(s) Reevaluation #1: forwarded message from Nghia Costello, The CARE team met with [facility]. While we do not believe he requires a higher level of care at this time, due to his repeated presentations to the ER seeking inpatient levels of care and his lack of follow-through with outpatient supports, we believe he could benefit from a Psych Consult tomorrow. With a goal to help identify malingering behaviors and address his pattern of utilizing ER services inappropriately. As we work on developing a comprehensive care plan for him. His presentations tend to follow a consistent pattern, which further supports the need for structured intervention. Reevaluation #2: The patient has been asking for various medications since he has been here. We attempted to verify his medications, he has not filled them since March. I explained to the patient that this is protocol, that we verify meds that are current before we administer. He is refusing Suboxone. He is insisting he wants methadone. I told the patient I would be happy to order medication to help him sleep; melatonin and Ativan. He declines, and wants to leave. He is not suicidal, he is not homicidal, he is not psychotic at this time. He is clinically sober, he is neurologically intact, alert and oriented x3. We do not have a medical cause to hold him. I reviewed the full care team note from today. The patient is here with a vague SI that has been ongoing for months , this is his baseline presentation when he presents to the emergency department. He is denying SI at this time, he has no plan for self-harm. Furthermore, he had a recent inpatient admission to , he signed himself out on May 26. If there was concern for the patient's safety, he would not have been allowed to sign out from his psychiatric admission. There is no section [address] to hold the patient. We will discharge now. Time: 00:17 Medical Decision Making Medical Decision Making MDM Narrative: Patient is a 48 year old assigned male at with a history of substance use disorder, schizoaffective disorder, opiate use disorder, and PTSD presenting to the emergency department today with anxiety, depression, and drug use. Patient's physical exam was unremarkable. Patient's blood work was unremarkable. Patient's EKG showed sinus tachycardia. I explained my physical exam findings as well as all test results to the patient. I answered all questions asked by the patient. Patient's disposition is pending CARE team evaluation. Patient placed in observation pending CARE team evaluation. Differential Diagnosis Differential Diagnoses: The differential diagnosis associated with the presentation includes SI Anxiety Depression Polysubstance use / abuse Admission/Observation Consideration of admission/observation: Escalation of care including admission/observation considered Patient's disposition will be determined after CARE team evaluation. Lab Data [facility] Lab Attestation statement: I reviewed the patient's lab results. My interpretation of these results are in the MDM Rationale portion of this note. 06/01/24 16:42 06/01/24 16:42 Labs: Lab Results 06/01/24 06/01/24 Range/Units 16:42 18:49 WBC 4.7 L (4.8-10.8) X10*3/uL RBC 4.48 L (4.60-5.80) X10*6/uL Hgb 11.6 L (14.0-18.0) g/dl Hct 36.6 L (42.0-52.0) % MCV 81.7 (80.0-98.0) fL MCH 25.9 L (27.0-33.0) pg MCHC 31.7 (31.0-36.0) g/dl RDW 15.1 (11.0-16.0) % Plt Count 309 (160-400) X10*3/uL MPV 8.1 L (9.4-12.4) fL Immature Gran % (Auto) 0.2 (0.0-0.4) % Neut % (Auto) 45.6 (45-73) % Lymph % (Auto) 40.9 H (20-40) % [place] % (Auto) 10.6 (2-11) % Eos % (Auto) 1.9 (0-4) % Baso % (Auto) 0.8 (0-2) % Lymph # (Auto) 1.9 (1.2-4.9) X10*3/uL [place] # (Auto) 0.5 (0.1-1.2) X10*3/uL Eos # (Auto) 0.1 (0.0-0.4) X10*3/uL Baso # (Auto) 0.0 (0.0-0.2) X10*3/uL Abs Immat Gran (auto) 0.01 (0.00-0.03) X10*3/uL Absolute Neuts (auto) 2.2 (2.0-8.3) x10*3/uL Absolute Nucleated RBC 0.000 (0.0-0.012) X10*3/uL Nucleated RBC % (auto) 0.0 (0.0-0.2) /100WBC Sodium 140 (135-145) mmol/L Potassium 3.7 (3.3-5.1) mmol/L Chloride 103 (96-108) mmol/L Carbon Dioxide 28 (22-29) mmol/L Anion Gap 13 (12-20) BUN 19 H (9-16) mg/dL Creatinine 0.90 (0.5-1.4) mg/dL Estim Creat Clear Calc 93.8 Estimated GFR > 60 Random Glucose 85 (60-115) mg/dL Calcium 9.1 D (8.4-10.2) mg/dL Total Bilirubin 0.3 (0.0-1.0) mg/dL AST 31 (5-37) U/L ALT 24 (0-40) U/L Alkaline Phosphatase 83 (39-117) U/L Total Protein 7.4 (6.5-8.0) g/dL Albumin 4.2 (3.5-5.0) g/dL Urine Color Yellow Urine Appearance Clear Urine pH 6.0 (5.0-9.0) Ur Specific [place] >= 1.030 H (1.005-1.025) Urine Protein Negative (Neg-Trace) mg/dL Urine Glucose (UA) Negative (Negative) mg/dL Urine Ketones Trace (Negative) mg/dL Urine Blood Negative (Negative) Urine Nitrite Negative (Negative) Ur Leukocyte Esterase Negative (Negative) Salicylates < 5.0 L (15-30) mg/dL Urine Opiates Screen POSITIVE H (Not Detect) Ur Buprenorphine Scrn Not Detected (Not Detect) ng/mL Ur Oxycodone Screen Not Detected (Not Detect) ng/mL Urine Methadone Screen Not Detected (Not Detect) ng/mL Urine Fentanyl Screen POSITIVE H (Not Detect) Acetaminophen < 3 (<30) mcg/mL Ur Barbiturates Screen Not Detected (Not Detect) Ur Phencyclidine Scrn Not Detected (Not Detect) Ur Amphetamines Screen Not Detected (Not Detect) U Benzodiazepines Scrn Not Detected (Not Detect) Urine Cocaine Screen POSITIVE H (Not Detect) U Marijuana (THC) Screen Not Detected (Not Detect) Ethyl Alcohol < 10 mg/dL COVID-19 (KATI) Negative (Negative) COVID-19 Clin Com See Note Independent Interpretation I performed an independent interpretation of an: EKG Interpretation: I independently interpreted this EKG and am in agreement with the below findings: Vent. Rate: 106 BPM Atrial Rate: 106 BPM P-R Int: 158 ms QRS Dur: 96 ms QT Int: 340 ms P-R-T Axes: 53 -21 38 degrees QTcB Int: 451 ms Sinus tachycardia Moderate voltage criteria for LVH, may be normal variant (R in aVL , [place] product) When compared with ECG of 25-May-2024 00:37, Vent. rate has increased by 39 bpm DD/ 1653 Discharge Plan Discharge Clinical Impression: Depression, Polysubstance abuse Patient Disposition: Home, Self-Care Instructions: Polysubstance Abuse (ED) Additional Instructions: Patient leaving without the benefit of his discharge instructions Prescriptions: No Action clonazepam 0.5 mg tablet 0.5 mg PO DAILY PRN (Reason: anxiety attack) quetiapine 100 mg tablet 100 mg PO BEDTIME PRN (Reason: insomnia) clonidine HCl 0.1 mg tablet See Rx Instructions .ROUTE .COMPLEX 30 Days Qty: 90 0RF Rx Instructions: take 1 tab in the morning and 1 at bedtime; may take 1 tab daily as needed for anxiety melatonin 10 mg tablet 10 mg PO BID PRN (Reason: sleep) buprenorphine-naloxone [Suboxone] 8-2 mg film 2 film sublingual DAILY Patient Comments: Pt states he took a few days ago Interventions: [place]-Suicide Risk Severity Scale Last Done: 06/01/24 16:59 Print Language: German
[2024-06-01 16:58] LABS: MANUAL DIFF FLAG NO
[2024-06-01 17:00] LABS: Basophils Percent Auto 0.8 % (0-2); Eosinophils Absolute Auto 0.1 X10*3/uL (0.0-0.4); Eosinophils Percent Auto 1.9 % (0-4); Hematocrit 36.6 % (42.0-52.0); Hemoglobin 11.6 g/dl (14.0-18.0); Imm Gran Abs Auto 0.01 X10*3/uL (0.00-0.03); Imm Gran Pct Auto 0.2 % (0.0-0.4); Lymphocytes Absolute Auto 1.9 X10*3/uL (1.2-4.9); Lymphocytes Percent Auto 40.9 % (20-40); Mean Corpuscular HGB Conc 31.7 g/dl (31.0-36.0); Mean Corpuscular Hemoglobin 25.9 pg (27.0-33.0); Mean Corpuscular Volume 81.7 fL (80.0-98.0); Mean Platelet Volume 8.1 fL (9.4-12.4); Monocytes Absolute Auto 0.5 X10*3/uL (0.1-1.2); Monocytes Percent Auto 10.6 % (2-11); Neutrophils Absolute Auto 2.2 x10*3/uL (2.0-8.3); Neutrophils Percent Auto 45.6 % (45-73); Platelet Count 309 X10*3/uL (160-400); Red Blood Count 4.48 X10*6/uL (4.60-5.80); Red Cell Distribution Width 15.1 % (11.0-16.0); White Blood Count 4.7 X10*3/uL (4.8-10.8)
[2024-06-01 17:16] LABS: COVID-19 Test Negative (Negative); IDNOW Serial# 58CA691E
[2024-06-01 17:17] LABS: Anion Gap 13 (12-20)
[2024-06-01 17:22] LABS: Alanine Aminotransferase 24 U/L (0-40); Albumin Level 4.2 g/dL (3.5-5.0); Aspartate Amino Transferase 31 U/L (5-37); Bilirubin Total 0.3 mg/dL (0.0-1.0); Blood Urea Nitrogen 19 mg/dL (9-16); Calcium 9.1 mg/dL (8.4-10.2); Carbon Dioxide 28 mmol/L (22-29); Chloride 103 mmol/L (96-108); Creatinine Clr Calc Pharmacy 93.8; Estimated Glomerular Filt Rate > 60; Ethanol < 10 mg/dL; Glucose Random 85 mg/dL (60-115); Potassium 3.7 mmol/L (3.3-5.1); Sodium 140 mmol/L (135-145); Total Protein 7.4 g/dL (6.5-8.0)
[2024-06-01 17:31] LABS: Alkaline Phosphatase 83 U/L (39-117)
[2024-06-01 17:32] LABS: Acetaminophen LAB < 3 mcg/mL (<30); Salicylate < 5.0 mg/dL (15-30)
--- OUTSIDE RECORDS SUMMARY | 2024-06-01 18:52 | XMS_ITS | Encounter Summary ---
Author Organization [employer] Address [address] [facility] 7t [place] [address] Care Team Providers Care Night Cleaner Name Role Phone Lara Headley MD Primary Care Provider + Encounter Details Date Type Department Care Team (Late st Contact Info) Description 06/01/2024 Orders Only GENERIC EXTERNAL DATA DEPARTMENT Provider, [...] Care Team (Late st Contact Info) Description 06/03/2024 9:00 AM EDT Office Visit [address] [address] Christian Arreguin MD [address] [place] [phone] 06/10/2024 9:00 AM EDT Clinical Support [address] [address] Richard Woods RN [address] [place] [phone] 06/11/2024 10:45 AM EDT Office Visit [address] [address] Lara Headley MD [address] [place] [address] [phone] documented as of this encounter Goals Goal Patient Goal Type Associated Problems Recent Progress Patient-Stated? Author Take buprenorphine as prescribed General Yes Chanel Thrasher RN Keep your medical appointments Lifestyle No Richard Woods RN documented as of this encounter Procedures Procedure Name Priority Date/Time Associated Diagnosis Comments COVID-19 ID NOW (RODRIGUEZ) Routine 06/01/2024 4:42 PM EDT ETHANOL Routine 06/01/2024 4:42 PM EDT CBC WITH AUTO DIFFERENTIAL Routine 06/01/2024 4:42 PM EDT ACETAMINOPHEN LEVEL Routine 06/01/2024 4 :42 PM EDT SALICYLATE Routine 06/01/2024 4:42 PM EDT COMPREHENSIVE METABOLIC PANEL Routine 06/01/2024 4:42 PM EDT documented in this encounter Results * Acetaminophen level (06/01/2024 4:42 PM EDT) Acetaminophen LAB <3 <30 mcg/mL [facility] 06/01/2024 4:42 PM EDT 06/01/2024 4:56 PM EDT us Generic External Data Provider LAB BLOOD ORDERAB LES Final Result Performing Organization Address City/[facility]/ZIP Co de Phone Number [facility] [address] [place] [phone] * (ABNORMAL) Salicylate (06/01/2024 4:42 PM EDT) Salicylate <5.0(L) 15 - 30 mg/dL [facility] 06/01/2024 4:42 PM EDT 06/01/2024 4:56 PM EDT us Generic External Data Provider LAB BLOOD ORDERAB LES Final Result Performing Organization Address City/[facility]/ZIP Co de Phone Number [facility] [address] [place] [phone] * Ethanol (06/01/2024 4:42 PM EDT) ETHANOL (MG/DL) IN SER/PLAS <10 mg/dL [facility] Comment:Serum/plasma ethanol results are to be used formedical/treatment purposes only. 06/01/2024 4:42 PM EDT 06/01/2024 4:56 PM EDT us Generic External Data Provider LAB BLOOD ORDERAB LES Final Result [facility] [address] [place] [phone] * (ABNORMAL) Comprehensive Metabolic Panel (06/01/2024 4:42 PM EDT) Sodium 140 135 - 145 mmol/L [facility] Potassium 3.7 3.3 - 5.1 mmol/L [facility] Chloride 103 96 - 108 mmol/L [facility] Carbon Dioxide 28 22 - 29 mmol/L [facility] Anion Gap 13 12 - 20 [facility] Urea Nitrogen (BUN) 19(H) 9 - 16 mg/dL [facility] Creatinine, Serum 0.90 0.5 - 1.4 mg/dL [facility] Creatinine Clr Calc Pharmacy 93.8 [facility] Comment:eGFR (calculated fro m the MDRD study equation) and eCrCl(calculated from the Cockcroft-Gault equation) are based ondifferent parameters and may not yield comparable results.If eCrCl result is absurd, please check patient'sheight/weight. Estimated Glomerular Filt Rate >60 [facility] Comment:Chronic Kidney Disea se: Estimated GFR < 60 mL/min/1.98b3Knhddz Kidney Disease: Estimated GFR < 15 mL/min/1.73m2 Glucose 85 60 - 115 mg/dL [facility] Calcium 9.1 8.4 - 10.2 mg/dL [facility] Bilirubin, Total 0.3 0.0 - 1.0 mg/dL [facility] Aspartate Amino Transferase 31 5 - 37 U/L [facility] Alanine Aminotransferase 24 0 - 40 U/L [facility] Total Protein 7.4 6.5 - 8.0 g/dL [facility] Albumin Level 4.2 3.5 - 5.0 g/dL [facility] Alkaline Phosphatase 83 39 - 117 U/L [facility] 06/01/2024 4:42 PM EDT 06/01/2024 4:56 PM EDT us Generic External Data Provider LAB BLOOD ORDERAB LES Final Result [facility] [address] [place] [phone] * COVID-19 ID NOW ([employer]isle[employer]er) (06/01/2024 4:42 PM EDT) IDNOW SERIAL# [id number] [facility] COVID-19 TEST Negative Negative [facility] COVID-19 NOTE See Note [facility] Comment: Results are for the identification of SARS-CoV2 RNA. TheSARS-CoV2 RNA is generally detectable in respiratory samplesduring the acute phase of infection. Positive results areindicative of the presence of SARS-CoV-2 RNA; clinicalcorrelation with patient history and other diagnosticinformation is necessary to determine patient infectionstatus. Positive results do not rule out bacterial infectionor co- infection with other viruses.Testing facilities within the [facility] and [facility] are required to report all positive results [...] use by authorized laboratories.Testing performed on the Rodriguez ID NOW utilizing NAAT. 06/01/2024 4:42 PM EDT 06/01/2024 5:00 PM EDT us Generic External Data Provider LAB MOLECULAR MARIANA [employer]NO[employer] ORDERABLES Final Result [facility] [address] [place] [phone] * (ABNORMAL) CBC auto differential (06/01/2024 4:42 PM EDT) White Blood Count 4.7(L) 4.8 - 10.8 X10*3/uL [facility] Red Blood Count 4.48(L) 4.60 - 5.80 X10*6/uL [facility] Hemoglobin 11.6(L) 14.0 - 18.0 g/dl [facility] Hematocrit 36.6(L) 42.0 - 52.0 % [facility] Mean Corpuscular Volume 81.7 80.0 - 98.0 fL [facility] Mean Corpuscular Hemoglobin 25.9(L) 27.0 - 33.0 pg [facility] Mean Corpuscular HGB Conc 31.7 31.0 - 36.0 g/dl [facility] Red Cell Distribution Width 15.1 11.0 - 16.0 % [facility] Platelet Count 309 160 - 400 X10*3/uL [facility] Mean Platelet Volume 8.1(L) 9.4 - 12.4 fL [facility] Neutrophils Percent Auto 45.6 45 - 73 % [facility] Imm Gran Pct Auto 0.2 0.0 - 0.4 % [facility] Lymphocytes Percent Auto 40.9(H) 20 - 40 % [facility] Monocytes Percent Auto 10.6 2 - 11 % [facility] Eosinophils Percent Auto 1.9 0 - 4 % [facility] Basophils Percent Auto 0.8 0 - 2 % [facility] NRBC Pct Auto 0.0 0.0 - 0.2 /100WBC [facility] Neutrophils Absolute Auto 2.2 2.0 - 8.3 x10*3/uL [facility] Imm Gran Abs Auto 0.01 0.00 - 0.03 X10*3/uL [facility] Lymphocytes Absolute Auto 1.9 1.2 - 4.9 X10*3/uL [facility] Monocytes Absolute Auto 0.5 0.1 - 1.2 X10*3/uL [facility] Eosinophils Absolute Auto 0.1 0.0 - 0.4 X10*3/uL [facility] Basophils Absolute Auto 0.0 0.0 - 0.2 X10*3/uL [facility] NRBC Abs Auto 0.000 0.0 - 0.012 X10*3/uL [facility] 06/01/2024 4:42 PM EDT 06/01/2024 4:56 PM EDT us Generic External Data Provider LAB BLOOD ORDERAB LES Final Result Performing Organization Address City/State/[facility] Co de Phone Number [facility] [address] [place] [phone] documented in this encounter Visit Diagnoses Not on filedocumented in this encounter Additional Health Concerns Assessment Noted Time PHQ-9 Depression Total Score: 3 04/23/19 25 11:02 AM EST documented as of this encounter Care Teams Night Cleaner Relationship Specialty Start Date End Date Lara Headley MD [address] [place] [phone] PCP - General Family Medicine 08/31/16 documented as of this encounter
--- OUTSIDE RECORDS SUMMARY | 2024-06-01 18:52 | XMS_ITS | Encounter Summary ---
Author Organization [employer] Address [address] [facility] [address]t [place] [address] Care Team Providers Care Skilled Laborer Name Role Phone Lara Headley MD Primary Care Provider + Reason for Visit * Reason Onset Date Comments Med Refill 05/27/2024 Encounter Details Date Type Department Care Team (Late st Contact Info) Description 05/27/2024 Refill [facility] [address] [place] [address] Chanel Thrasher RN Social History Tobacco Use Types Packs/Day Years [...] the past 12 months, has t he [employer], [employer], oil or water company threatened to shut [...] Description 06/03/2024 9:00 AM EDT Office Visit [address] [address] Christian Arreguin MD [address] [place] [phone] 06/10/2024 9:00 AM EDT Clinical Support [address] [address] Richard Woods RN [address] [place] [phone] 06/11/2024 10:45 AM EDT Office Visit [address] [address] Lara Headley MD [address] [place] [address] documented as of this encounter Goals Goal [...] documented as of this encounter Care Teams Skilled Laborer Relationship Specialty Start Date End Date Lara Headley MD [address] [place] [phone] PCP - General Family Medicine 08/31/16 documented as of this encounter
--- OUTSIDE RECORDS SUMMARY | 2024-06-01 18:52 | XMS_ITS | Encounter Summary ---
Author Organization [employer] Address [address] [facility] 7t [place] [address] Care Team Providers Care Client Care Specialist Name Role Phone Lara Headley MD Primary Care Provider + Encounter Details Date Type Department Care Team (Latest Contact Info) Description 05/27/2024 Travel Social History Tobacco Use Types Packs/Day [...] Description 06/03/2024 9:00 AM EDT Office Visit [address] [address] Christian Arreguin MD [address] [place] [phone] 06/10/2024 9:00 AM EDT Clinical Support [address] [address] Richard Woods RN [address] [place] [phone] 06/11/2024 10:45 AM EDT Office Visit [address] [address] Lara Headley MD [address] [place] [address] [phone] documented as of this encounter Goals Goal [...] documented as of this encounter Care Teams Client Care Specialist Relationship Specialty Start Date End Date Lara Headley MD [address] [place] [phone] PCP - General Family Medicine 08/31/16 documented as of this encounter
--- OUTSIDE RECORDS SUMMARY | 2024-06-01 18:52 | XMS_ITS | Encounter Summary ---
Author Organization [employer] Address [address] [facility] 7[address] [place] [address] Care Team Providers Care Ch[employer]ney [employer] Supervisor Name Role Phone Lara Headley MD Primary Care Provider + Reason for Visit * Reason Comments GBAT Encounter Details Date Type Department Care Team ([facility] st Contact Info) Description 05/27/2024 9:00 AM EDT Office Visit [facility] [address] [place], [place] [phone] Christian Arreguin MD [address] [place] [phone] Opioid type dependence, continuous (CMS/HCC) (Primary Dx) [...] Progress Notes * Christian Arreguin MD - 05/27/2024 9:00 AM EDT Patient with OUD presents for GBAT visit. Patient on current Suboxone dose of 16/4 mg on a 1-week schedule. Induction date: 02/10/24. LFTs done 02/11/24. Patient actively enrolled in behavioral health services, integrated therapist and psychiatrist. Was followed in Dr. El's OBAT clinic, but theGBAT team will assume the Rx management LAST GBAT VISIT 05/20/2024 UTOX: POS BUP, ARISTEO, MOP, TCA, FEN Patient presents for Group-Based Opioid Treatment for OUD Reviewed the group goals, expectations and policies Consented to the group treatment options Actively participated in the group discussion with the topic of: Managing Psychological Pain Mindfulness Moment Following staff present at the visit: Radiology Physician Assistant, Team RN, Clinician, & Physician Opportunities provided to address individual medical/medication/ concerns States doing well without cravings or relapse TODAY GBAT VISIT 05/27/2024 UTOX: POS ARISTEO, MTD, FEN NEG FOR BUP Patient presents for Group-Based Opioid Treatment for OUD Reviewed the group goals, expectations and policies Consented to the group treatment options Actively participated in the group discussion with the topic of: Open Discussion Mindfulness Moment Following staff present at the visit: Radiology Physician Assistant, Team RN, Clinician, & Physician Opportunities provided to address individual medical/medication/ concerns States doing well without cravings or relapse Discussed his UTOX result; states he is running out before the appointment due to over-using I informed him that we cannot continue with SL form of Buprenorphine if his UTOX continues to be negative (previously had several UTOX with NEG BUP) Understands the plan; understands that one he is able to provide UTOX with BUP present x2, we can discuss about increasing the dose as requested Also reviewed other options including Sublocade and Methadone, but patient declined at this time Review of Systems Psychiatric/Behavioral: Negative for behavioral problems and dysphoric mood. The patient is not nervous/anxious. Physical Exam Constitutional: Appearance: Normal appearance. Pulmonary: Effort: Pulmonary effort is normal. Neurological: Mental Status: She is alert. Psychiatric: Mood and Affect: Mood normal. Behavior: Behavior normal. Sudhir was seen today for gbat . Diagnoses and all orders for this visit: Opioid type dependence, continuous ([facility]) (Primary) - POCT RIN-14 Urine Drug Screen [...] faced situations that may trigger use [place] NEGATIVE NOTCHER reviewed Following staff present at the visit: Physician, Team RN, Clinician, Radiology Physician Assistant and Orientation And Mobility Instructor Follow up in 1 week for the next GBAT meeting Positive UTOX results (and NEG BUP) discussed Understands that he is unable to continue with SL form if UTOX NEG BUP next week This information has been disclosed to you [...] Description 06/03/2024 9:00 AM EDT Office Visit [address] [phone] Christian Arreguin MD [address] [place] [address] [phone] 06/10/2024 9:00 AM EDT Clinical Support [address] [address] Richard Woods RN [address] [place] [phone] 06/11/2024 10:45 AM EDT Office Visit [address] [phone] Lara Headley MD [address] [place] [address] [phone] documented as of this encounter Goals Goal Patient Goal Type Associated Problems Recent Progress Patient-Stated? Author Take buprenorphine as prescribed General Yes Chanel Thrasher, EMILY Keep your medical appointments Lifestyle No Richard Woods RN documented as of this encounter Procedures Procedure Name Priority Date/Time Associated Diagnosis Comments POCT RIN-14 URINE DRUG SCREEN Routine 05/27/2024 9:40 AM EDT Opioid type dependence, continuous (CMS/HCC) documented in this encounter Results * POCT RIN-14 Urine Drug Screen (05/27/2024 9:40 AM EDT) THC Negative Cocaine Screen, Urine Positive Opiate Screen, Urine Negative Methamphetamine Screen Urine Negative Amphetamine Screen, Urine Negative Benzodiazepines Screen, Urine Negative Barbiturate Screen, Urine Negative Methadone Screen, Urine Positive Buprenophine Screen, Urine Negative TCA, Urine Negative MDMA Urine Negative ng/mL Oxycodone Screen, Urine Negative Phencyclidine (PCP), Urine Negative Fentanyl, Urine Positive Urine Urine specimen obtained by clean catch procedure / Unknown 05/27/2024 9:40 AM EDT Christian Arreguin MD POINT OF CARE TEST ENTER/EDIT OR DERABLES Edited Result - Final documented in this encounter Visit Diagnoses Diagnosis Opioid type dependence, continuous (CMS/HCC)- Primary Opioid type dependence, continuous documented in this encounter Additional Health Concerns Assessment Noted Time PHQ-9 Depression Total Score: 3 04/23/19 25 11:02 AM EST documented as of this encounter Care Teams Ch[employer] Supervisor Relationship Specialty Start Date End Date Lara Headley MD [address] [place] [phone] PCP - General Family Medicine 08/31/16 documented as of this encounter
--- OUTSIDE RECORDS SUMMARY | 2024-06-01 18:52 | XMS_ITS ---
Author Organization [employer] Address [address] [facility] 7t [place] [address] Care Team Providers Care Child Care Associate Name Role Phone Lara Headley MD Primary Care Provider + CHW Complex Status:Identified (Enrolling) Start date:05/25/2024 Enrollment reason:ADT Feed Overview ED- [facility] [place] [facility] [place]. Please outreach pt Continued Care and Services Coordination
--- OUTSIDE RECORDS SUMMARY | 2024-06-01 18:52 | XMS_ITS ---
Author Organization [employer] Address [address] [facility] 7[address] [place] [address] Care Team Providers Care Health Plan Manager Name Role Phone Lara Headley MD Primary Care Provider + CM Complex Status:Identified (Enrolling) Start date:05/25/2024 Enrollment reason:ADT Feed Overview ED- Pt went to [facility] on 05/22/24. Case Team Name Relationship Phone Dalia Ruby RN Registered Nurse(Responsible S taff) Continued Care and Services Coordination
--- OUTSIDE RECORDS SUMMARY | 2024-06-01 18:52 | XMS_ITS | Encounter Summary ---
Author Organization [employer] Address [address] [facility] 7[address] [place] [address] Care Team Providers Care Cutter And Presser Name Role Phone Lara Headley MD Primary Care Provider + Reason for Visit * Reason Comments Med Refill Encounter Details Date Type Department Care Team ([facility] st Contact Info) Description 12/28/2022 Refill [facility] [address] [place], [place] [phone] Dalia El MD [address] [place] [address] Social History Tobacco Use Types Packs/Day Years [...] Description 06/03/2024 9:00 AM EDT Office Visit [facility] [address] [place] [phone] Christian Arreguin MD [address] [place] [phone] 06/10/2024 9:00 AM EDT Clinical Support [address] [address] Richard Woods RN [address] [place] [phone] 06/11/2024 10:45 AM EDT Office Visit [address] [address] Lara Headley MD [address] [place] [phone] documented as of this encounter Visit Diagnoses Not on filedocumented in this encounter Additional Health Concerns Assessment Noted Time PHQ-9 Depression Total Score: 4 09/04/19 23 12:55 PM EDT documented as of this encounter Care Teams Cutter And Presser Relationship Specialty Start Date End Date Lara Headley MD [address] [place] [address] PCP - General Family Medicine 08/31/16 documented as of this encounter
--- OUTSIDE RECORDS SUMMARY | 2024-06-01 18:52 | XMS_ITS | Clinical Summary ---
Author Organization [employer] Address [address] [place] [address] Care Team Providers Care Diesel Engine Specialist Name Role Phone Lara Headley MD [...] (Tylenol) 500 MG tabletIndication s:Dental caries,Fractured dental evangelical without loss of material Take 1 tablet [...] dysfunction. 10 tablet 6 025 2024 Active Buprenorphine HCl-Naloxone HCl (Suboxone) 8-2 MG [...] mouth if needed at bedtime. 025 Active cloNIDine (Catapres) 0.1 MG tablet Take 1 tablet by mouth 2 times daily. May take 1 tablet daily as needed for anxiety Active Buprenorphine HCl-Naloxone HCl (Suboxone) 8-2 MG SL filmIndications: Opioid dependence, uncomplicated (CMS/HCC) Place 2 Film under the tongue Once per day for 14 days. Do not start before June 03, 2024. 14 Film 1 025 2024 Active albuterol (ProAir HFA) 108 [...] cleanup (will not trigger notification to Pharmacy)) cloNIDine (Catapres) 0.1 MG tablet Take 1 tablet (0.1 mg) by mouth 2 times daily. 60 tablet 025 2024 Discontinued(M ed list cleanup (will [...] May 27, 2024. 14 Film 025 2024 Discontinued(R eorder [...] of anxiety and addiction, reach out to assistant football coach. Continue to FU with [facility] program. FU with me in 3-4 weeks. Moderate benzodiazepine use disorder 03/05/2024 Assessment & Plan (03/05/2024 11:22 AM EST): Chronically using Klonopin BID off the street, advised risk of overdose and being tainted with other drugs. 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 I gave him [facility] info to reach out for an appt. He feels safe at home now and is able to reach out for safety. FU at next appt, needs to bring med bottles. Assessment & Plan (04/26/2023 3:25 PM EST): Pt probably has his anxiety exacerbated by methadone taper Counseled to discuss with assistant football coach regarding holding off on methadone taper Start Wellbutrin 150 mg and fu at next visit Continue close fu with therapist Saúl [place], I will refer to to help him coordinate referral to a psych Rx in the halfway. Assessment & Plan (12/25/2022 9:50 AM EDT): Written consent obtained for ear acupuncture. Ears prepped with alcohol pad. Five ear points needled bilaterally: Sympathetic, Prutit Men, Kidney, Liver and Lung. Treatment duration: [...] off methadone. Advised to reach out to assistant football coach, discussed with him re early signs [...] out for safety, and to work with assistant football coach - f/u in 3 months Assessment & Plan (04/26/2023 9:29 AM EST): Cutting down on methadone, is probably having increased anxiety due to this/?withdrawal Sx Counseled to slow down on taper and fu w assistant football coach We discussed importance of not using recreational substances Assessment & Plan (10/03/2022 12:04 PM EDT): Currently on methadone 30mg continues to live in retirement where he has assistant football coach and support groups Assessment & Plan (09/03/2022 1:34 PM EDT): Currently on methadone 30mg in [facility] Continue residential recovery program in [facility] Counseled to avoid alcohol, drugs, currently sober FU PRN Encounters * This document contains information received from the source organization and may not represent a complete record from that organization. Date Type Department Care Team Description 06/01/2024 Orders Only GENERIC EXTERNAL DATA DEPARTMENT Provider, Generic External Data 05/28/[address] [address] Chanel Thrasher RN Opioid dependence, uncomplicated (CMS/HCC) 05/27/2024 9:00 AM EDT Office Visit [address] [address] Christian Arreguin MD Opioid type dependence, continuous (CMS/HCC) (Primary Dx) 05/27/[address] [address] Chanel Thrasher RN 05/27/2024 Travel 05/25/2024 Patient Outreach [address] [address] Lara Headley MD Transition Of Care (Tcm) (HDF scheduled) 05/25/2024 Patient Outreach [facility] [address] [place] [address] Lara Headley MD 05/25/2024 Patient Outreach [address] [address] Lara Headley MD 05/22/2024 Orders Only GENERIC EXTERNAL DATA DEPARTMENT Provider, Generic External Data 05/21/2024 Patient Outreach [address] [address] Armand Dykes Recovery Supports 05/21/[address] [address] Lara Headley MD No Show 05/20/2024 9:00 AM EDT Office Visit [address] [address] Christian Arreguin MD Opioid dependence, uncomplicated (CMS/HCC) (Primary Dx) 05/20/[address] [address] Chanel Thrasher RN Opioid dependence, uncomplicated (CMS/HCC) 05/20/2024 Travel 05/18/2024 Patient Outreach [address] [address] Jack Tavares Recovery Supports 05/18/[address] [address] Lara Headley MD No Show 05/15/[address] [address] Chanel Thrasher RN Opioid dependence, uncomplicated (CMS/HCC) 05/15/2024 Patient Outreach [address] [address] Lara Headley MD Care Coordination (Outreach) 05/14/2024 Patient Outreach [address] [address] Evaristo Canchola Recovery Supports 05/13/2024 9:00 AM EDT Clinical Support [address] [address] Chanel Thrasher RN Opioid dependence, uncomplicated (CMS/HCC) (Primary Dx) 05/13/2024 Travel 05/12/2024 Patient Outreach [address] [address] Evaristo Canchola Recovery Supports 05/12/2024 Patient Outreach [address] [address] Jack Tavares Recovery Supports 05/12/2024 Travel 05/11/2024 Patient Outreach [address] [address] Jack Tavares Recovery Supports 05/11/[address] [address] Chanel Thrasher RN Opioid dependence, uncomplicated (CMS/HCC) 05/08/2024 Patient Outreach [address] [address] Lara Headley MD Care Coordination (CHW outreach for SDOH-patient declined to participate ) 05/08/2024 Patient Outreach [address] [address] Lara Headley MD Transition Of Care (Tcm) (HDF- scheduled , SDOH is positive tobacco screening is negative) 05/08/2024 Population Health Risk Score [facility] (C3) Department [address] [place] [id number] Provider, Population Health Generic 05/08/2024 Patient Outreach [facility] [address] [place] [address] Lara Headley MD Transition Of Care (Tcm) 05/08/2024 Patient Outreach [facility] [address] [place], [place] [phone] Lara Headley MD Care Coordination (Outreach) 05/07/2024 2:30 PM EDT Office Visit [address] [address] Dalia El MD Opioid dependence, uncomplicated (CMS/HCC) (Primary Dx) 05/07/2024 Patient Outreach [address] [address] Jack Tavares Recovery Supports 05/07/2024 Patient Outreach [address] [address] Evaristo Canchola Recovery Supports 05/07/2024 Travel 05/06/2024 9:00 AM EDT Office Visit [address] [address] Christian Arreguin MD Opioid dependence, uncomplicated (CMS/HCC) (Primary Dx) 05/06/2024 Travel 05/05/2024 Patient Outreach [address] [address] Evaristo Canchola Recovery Supports 05/05/[address] [address] Dalia El MD Opioid dependence, uncomplicated (CMS/HCC) 05/04/2024 1:00 PM EDT Clinical Support [address] [address] Richard Woods RN Opioid dependence, uncomplicated (CMS/HCC) (Primary Dx) 05/04/2024 Patient Outreach [facility] [address] [place] [address] Lara Headley MD Care Coordination 05/04/2024 Patient Outreach [address] [address] Evaristo Canchola Recovery Supports 05/04/2024 Travel 05/04/2024 Refill [facility] [address] [place] [address] Richard Woods RN Opioid dependence, uncomplicated (CMS/HCC) 04/30/[address] [address] Lara Headley MD No Show 04/29/2024 Patient Outreach [facility] [address], [place] [phone] Lara Headley MD Care Coordination (Outreach) 04/28/[address] [address] Lara Headley MD Chart prep 04/27/2024 Orders Only GENERIC EXTERNAL DATA DEPARTMENT Provider, Generic External Data 04/26/2024 Orders Only GENERIC EXTERNAL DATA DEPARTMENT Provider, Generic External Data 04/24/2024 Patient Outreach [address] [address] Lara Headley MD Transition Of Care (Tcm) 04/23/2024 2:45 PM EST Office Visit [address] [address] Dalia El MD Opioid dependence, uncomplicated (CMS/HCC) (Primary Dx); Schizoaffective disorder, depressive type (CMS/HCC) 04/23/[address] [phone] Lara Headley MD 04/23/[address] [address] Dalia El MD Opioid dependence, uncomplicated (CMS/HCC) 04/23/2024 Travel 04/23/2024 Patient Outreach [facility] [address] [facility] [place] [address] Sharif Rider Recovery Supports 04/20/2024 Patient Outreach [facility] [address] [facility] [place] [address] Jack Tavares Recovery Supports 04/17/2024 Patient Outreach [facility] [address] [place] [address] Sharif Rider Recovery Supports 04/16/2024 Patient Outreach [facility] [address] [place] [address] Lara Headley MD Care Coordination (Outreach/) 04/16/2024 Travel 04/06/2024 Patient Outreach [facility] [address] [facility] [place] [address] Lara Headley MD Transition Of Care (Tcm) 04/05/2024 Orders Only GENERIC EXTERNAL DATA DEPARTMENT Provider, Generic External Data 04/02/2024 2:30 PM EST Office Visit [facility] [place] [address] Dalia El MD Opioid type dependence, continuous (CMS/[facility]) (Primary Dx) 04/02/2024 Refill [facility] [place] [place] [address] Richard Woods RN Opioid dependence, uncomplicated (CMS/HCC) 04/02/2024 Patient Outreach [address] [address] Sharif Rider Recovery Supports 04/02/2024 Travel 04/01/2024 Telephone [facility] [address] [place] [address] Richard Woods RN 03/30/2024 Patient Outreach [facility] [address] [place] [address] Sharif Rider Recovery Supports 03/30/2024 Telephone [facility] [address] [place] [address] Lara Headley MD 03/30/2024 Refill [facility] [address] [place] [address] Richard Woods RN Opioid dependence, uncomplicated (CMS/HCC) 03/27/2024 11:30 AM EST Clinical Support [facility] [address] [facility] [place] [address] Richard Woods RN Opioid dependence, uncomplicated (CMS/HCC) (Primary Dx) 03/27/2024 Travel 03/26/2024 Patient Outreach [facility] [address] [place] [address] Lara Headley MD Care Coordination (Outreach) 03/23/2024 Refill [facility] [address] [facility] [place] [address] Richard Woods RN Opioid dependence, uncomplicated (CMS/HCC) 03/23/2024 Orders Only GENERIC EXTERNAL DATA DEPARTMENT Provider, Generic External Data 03/22/2024 Orders Only GENERIC EXTERNAL DATA DEPARTMENT Provider, Generic External Data 03/20/2024 9:50 AM EST Clinical Support [facility] [address] [place] [address] Richard Woods RN Opioid dependence, uncomplicated (CMS/HCC) (Primary Dx) 03/20/2024 Patient Outreach [facility] [address] [place] [address] Sharif Rider Recovery Supports 03/20/2024 Travel 03/19/2024 Patient Outreach [facility] [address] [place] [address] Lara Headley MD Care Coordination (Outreach) 03/17/2024 Refill [facility] [address] [place] [address] Richard Woods RN Opioid dependence, uncomplicated (CMS/HCC) 03/12/2024 1:45 PM EST Office Visit [facility] [address] [place] [address] Dalia El MD Opioid dependence, uncomplicated (CMS/HCC) (Primary Dx); Generalized anxiety disorder 03/12/2024 Refill [facility] [address] [place] [address] Richard Woods RN Opioid dependence, uncomplicated (CMS/HCC) 03/12/[address] [address] Richard Woods RN Opioid dependence, uncomplicated (CMS/HCC) 03/12/2024 Travel 03/12/2024 Patient Outreach [address] [address] Lara Headley MD Transition Of Care (Tcm) 03/12/[address] [address] Lara Headley MD Error (VOID this visit) 03/11/2024 Patient Outreach [facility] [address], [place] [phone] Lara Headley MD Care Coordination (Outreach) 03/11/2024 Patient Outreach [address] [address] Armand Dykes 03/11/2024 Patient Outreach [address] [address] Jack Tavares Recovery Supports 03/11/2024 Travel 03/10/2024 Patient Outreach [address] [address] Evaristo Canchola Recovery Supports 03/09/2024 Patient Outreach [address] [address] Lara Headely MD Transition Of Care (Tcm) 03/09/[address] [address] Lara Headley MD 03/06/2024 Patient Outreach [address] [address] Armand Dykes Recovery Supports 03/05/2024 11:30 AM EST Clinical Support [address] [address] Richard Woods RN Opioid dependence, uncomplicated (CMS/HCC) (Primary Dx) 03/05/2024 10:45 AM EST Office Visit [address] [address] Lara Headley MD Generalized anxiety disorder (Primary Dx); Essential hypertension; Polysubstance abuse ([facility]); Moderate benzodiazepine use disorder ([facility]); Erectile dysfunction, unspecified erectile dysfunction type 03/05/2024 Refill [facility] [address] [place] [address] Richard Woods RN Opioid dependence, uncomplicated ([facility]/HCC) 03/05/2024 Patient Outreach [facility] [address] [place], [place] [phone] Armand Dykse Recovery Supports 03/05/2024 Travel 03/04/2024 Telephone [facility] [address], [place] [phone] Gaby Black MA Chart prep 03/04/2024 Patient Outreach [facility] [address] [place], [place] [phone] Lara Headley MD Care Coordination (Outreach) 03/03/2024 Telephone [facility] [address], [place] [phone] Lara Headley MD Record Request 03/03/2024 Telephone [facility] [address], [place] [phone] Heidi Aguilera, DelilahD from Last 3 Months Immunizations Name Administration [...] Description 06/03/2024 9:00 AM EDT Office Visit [address] [address] Christian Arreguin MD [address] [place] [address] 06/10/2024 9:00 AM EDT Clinical Support [address] [address] Richard Woods, EMILY [address] [place] [address] 06/11/2024 10:45 AM EDT Office Visit [address] [address] Lara Headley MD [address] [place] [address] Health Maintenance Due Date Last Done Comments [...] your medical appointments Lifestyle No Richard Woods, recycling or rubbish collector Procedure Name Priority Date/Time Associated Diagnosis Comments ACETAMINOPHEN LEVEL Routine 06/01/2024 4 :42 PM EDT SALICYLATE Routine 06/01/2024 4:42 PM EDT ETHANOL Routine 06/01/2024 4:42 PM EDT COMPREHENSIVE METABOLIC PANEL Routine 06/01/2024 4:42 PM EDT COVID-19 ID NOW (RODRIGUEZ) Routine 06/01/2024 4:42 PM EDT CBC WITH AUTO DIFFERENTIAL Routine 06/01/2024 4:42 PM EDT POCT RIN-14 URINE DRUG SCREEN Routine 05/27/2024 9:40 AM EDT Opioid type dependence, continuous (CMS/HCC) MAGNESIUM Routine 05/22/2024 9:40 AM EDT COMPREHENSIVE [...] 9:37 AM EST Opioid dependence, uncomplicated (CMS/HCC) BITEWING - [...] Recently Relevant to Health Maintenance Results * COVID-19 ID NOW (Tarari) (06/01/2024 4:42 PM EDT) Only the most recent of2 resultswithin the time period is included. IDNOW SERIAL# [id number] [facility] COVID-19 TEST Negative Negative [facility] COVID-19 NOTE See Note [facility] Comment: Results are for the identification of SARS-CoV2 RNA. TheSARS-CoV2 RNA is generally detectable in respiratory samplesduring the acute phase of infection. Positive results areindicative of the presence of SARS-CoV-2 RNA; clinicalcorrelation with patient history and other diagnosticinformation is necessary to determine patient infectionstatus. Positive results do not rule out bacterial infectionor co- infection with other viruses.Testing facilities within the [place] and itsterritories are required to report all [...] use by authorized laboratories.Testing performed on the [employer] NOW utilizing NAAT. 06/01/2024 4:42 PM EDT 06/01/2024 5:00 PM EDT Generic External Data Provider LAB MOLECULAR MARIANA GNOSTICS ORDERABLES Final Result Performing Organization Address [facility] de Phone Number [facility] [address] [place] [phone] * Ethanol (06/01/2024 4:42 PM EDT) Only the most recent of3 resultswithin the time period is included. [facility] ETHANOL (MG/DL) IN SER/PLAS <10 mg/dL [facility] Comment:Serum/plasma ethanol results are to be used formedical/treatment purposes only. 06/01/2024 4:42 PM EDT 06/01/2024 4:56 PM EDT Generic External Data Provider LAB BLOOD ORDERAB LES Final Result Performing Organization Address [facility] de Phone Number [facility] [address] [place] [phone] * (ABNORMAL) CBC auto differential (06/01/2024 4:42 PM EDT) Only the most recent of5 resultswithin the time period is included. [facility] White Blood Count 4.7(L) 4.8 - 10.8 X10*3/uL [facility] Red Blood Count 4.48(L) 4.60 - 5.80 X10*6/uL [facility] Hemoglobin 11.6(L) 14.0 - 18.0 g/dl [facility] Hematocrit 36.6(L) 42.0 - 52.0 % [facility] Mean Corpuscular Volume 81.7 80.0 - 98.0 fL [facility] Mean Corpuscular Hemoglobin 25.9(L) 27.0 - 33.0 pg [facility] Mean Corpuscular HGB Conc 31.7 31.0 - 36.0 g/dl [facility] Red Cell Distribution Width 15.1 11.0 - 16.0 % [facility] Platelet Count 309 160 - 400 X10*3/uL [facility] Mean Platelet Volume 8.1(L) 9.4 - 12.4 fL [facility] Neutrophils Percent Auto 45.6 45 - 73 % [facility] Imm Gran Pct Auto 0.2 0.0 - 0.4 % [facility] Lymphocytes Percent Auto 40.9(H) 20 - 40 % [facility] Monocytes Percent Auto 10.6 2 - 11 % [facility] Eosinophils Percent Auto 1.9 0 - 4 % [facility] Basophils Percent Auto 0.8 0 - 2 % [facility] NRBC Pct Auto 0.0 0.0 - 0.2 /100WBC [facility] Neutrophils Absolute Auto 2.2 2.0 - 8.3 x10*3/uL [facility] Imm Gran Abs Auto 0.01 0.00 - 0.03 X10*3/uL [facility] Lymphocytes Absolute Auto 1.9 1.2 - 4.9 X10*3/uL [facility] Monocytes Absolute Auto 0.5 0.1 - 1.2 X10*3/uL [facility] Eosinophils Absolute Auto 0.1 0.0 - 0.4 X10*3/uL [facility] Basophils Absolute Auto 0.0 0.0 - 0.2 X10*3/uL [facility] NRBC Abs Auto 0.000 0.0 - 0.012 X10*3/uL [facility] 06/01/2024 4:42 PM EDT 06/01/2024 4:56 PM EDT us Generic External Data Provider LAB BLOOD ORDERAB LES Final Result Performing Organization Address [facility] Co de Phone Number [facility] [address] [place] [phone] * Acetaminophen level (06/01/2024 4:42 PM EDT) Only the most recent of2 resultswithin the time period is included. Acetaminophen LAB <3 <30 mcg/mL [facility] 06/01/2024 4:42 PM EDT 06/01/2024 4:56 PM EDT us Generic External Data Provider LAB BLOOD ORDERAB LES Final Result Performing Organization Address [facility] Phone Number [facility] [address] [place] [phone] * (ABNORMAL) Salicylate (06/01/2024 4:42 PM EDT) Only the most recent of2 resultswithin the time period is included. Salicylate <5.0(L) 15 - 30 mg/dL [facility] 06/01/2024 4:42 PM EDT 06/01/2024 4:56 PM EDT Generic External Data Provider LAB BLOOD ORDERAB LES Final Result Performing Organization Address [facility] Co de Phone Number [facility] [address] [place] [phone] * (ABNORMAL) Comprehensive Metabolic Panel (06/01/2024 4:42 PM EDT) Only the most recent of5 resultswithin the time period is included. Sodium 140 135 - 145 mmol/L [facility] Potassium 3.7 3.3 - 5.1 mmol/L [facility] Chloride 103 96 - 108 mmol/L [facility] Carbon Dioxide 28 22 - 29 mmol/L [facility] Anion Gap 13 12 - 20 [facility] Urea Nitrogen (BUN) 19(H) 9 - 16 mg/dL [facility] Creatinine, Serum 0.90 0.5 - 1.4 mg/dL [facility] Creatinine Clr Calc Pharmacy 93.8 [facility] Comment:eGFR (calculated fro m the MDRD study equation) and eCrCl(calculated from the Cockcroft-Gault equation) are based ondifferent parameters and may not yield comparable results.If eCrCl result is absurd, please check patient'sheight/weight. Estimated Glomerular Filt Rate >60 [facility] Comment:Chronic Kidney Disea se: Estimated GFR < 60 mL/min/[id number] Kidney Disease: Estimated GFR < 15 mL/min/1.73m2 Glucose 85 60 - 115 mg/dL [facility] Calcium 9.1 8.4 - 10.2 mg/dL [facility] Bilirubin, Total 0.3 0.0 - 1.0 mg/dL [facility] Aspartate Amino Transferase 31 5 - 37 U/L [facility] Alanine Aminotransferase 24 0 - 40 U/L [facility] Total Protein 7.4 6.5 - 8.0 g/dL [facility] Albumin Level 4.2 3.5 - 5.0 g/dL [facility] Alkaline Phosphatase 83 39 - 117 U/L [facility] 06/01/2024 4:42 PM EDT 06/01/2024 4:56 PM EDT us Generic External Data Provider LAB BLOOD ORDERAB LES Final Result [facility] [address] [place] [address] [phone] * POCT RIN-14 Urine Drug Screen (05/27/2024 9:40 AM EDT) Only the most recent of11 [...] ENTER/EDIT OR DERABLES Edited Result - Final * (ABNORMAL) Drug Monitoring, Panel 1, Screen, Urine (05/22/2024 9:40 AM EDT) Only the most recent of4 resultswithin the time period is included. Opiate Screen Urine POSITIVE(A) Not Detect [facility] Comment:Opiate cut-off is 30 0 ng/mL.Positive results are unconfirmed and should not be used fornon-medical purposes. Barbiturates, Urine Not Detected Not Detect [facility] Comment:Barbiturate cut-off is 200 ng/mL.Positive results are unconfirmed and should not be used fornon-medical purposes. Phencyclidine Screen Urine Not Detected Not Detect [facility] Comment:Phencyclidine cut-of f is 25 ng/mL.Positive results are unconfirmed and should not be used fornon-medical purposes. Amphetamine Screen Urine Not Detected Not Detect [facility] Comment:Amphetamine cut-off is 1000 ng/mL.Positive results are unconfirmed and should not be used fornon-medical purposes. Benzodiazepines Screen Urine Not Detected Not Detect [facility] Comment:Benzodiazepine cut-o ff is 200 ng/mL.Positive results are unconfirmed and should not be used fornon-medical purposes. Cocaine Screen Urine POSITIVE(A) Not Detect [facility] Comment:Cocaine cut-off is 3 00 ng/mL.Positive results are unconfirmed and should not be used fornon-medical purposes. Cannabinoid Screen Urine Not Detected Not Detect [facility] Comment:Cannabinoid cut-off is 50 ng/mL.Positive results are unconfirmed and should not be used fornon-medical purposes. Methadone Screen, Urine Not Detected Not Detect ng/mL [facility] Comment:Methadone cut-off is 300 ng/mL.Positive results are unconfirmed and should not be used fornon-medical purposes. FENTANYL URINE POSITIVE(A) Not Detect [facility] Comment:Fentanyl cut-off is 1 ng/mL.Positive results are unconfirmed and should not be used fornon-medical purposes. Oxycodone Urine Screen Not Detected Not Detect ng/mL [facility] Comment:Oxycodone cut-off is 100 ng/mL.Positive results are unconfirmed and should not be used fornon-medical purposes. Buprenorphine Screen Not Detected Not Detect ng/mL [facility] Comment:Buprenorphine cut-of f is 5 ng/mL.Positive results are unconfirmed and should not be used fornon-medical purposes. 05/22/2024 9:40 AM EDT 05/22/2024 9:49 AM EDT us Generic External Data Provider LAB URINE ORDERAB LES Final Result [facility] [address] [place] [phone] * Urinalysis w/reflex microscopic (05/22/2024 9:40 AM EDT) Only the most recent of3 resultswithin the time period is included. Color Urine Yellow [facility] Appearance Urine Clear [facility] PH 7.0 5.0 - 9.0 [facility] Glucose Urine UA Negative Negative mg/dL [facility] Urine Blood Negative Negative [facility] Specific Mcclure - Urine 1.020 1.005 - 1.025 [facility] Urine Protein Trace Neg-Trace mg/dL [facility] Urine Ketones 15 Negative mg/dL [facility] Nitrite Urine Negative Negative [facility] Leukocyte Esterase Urine Negative Negative [facility] 05/22/2024 9:40 AM EDT 05/22/2024 9:49 AM EDT Narrative [facility] - 05/22/2024 9:55 AM EDT [id number], Clean Catch us Generic External Data Provider LAB URINE ORDERAB LES Final Result Performing Organization Address [facility]/ZIP Co de Phone Number [facility] [address] [place] [phone] * Magnesium (05/22/2024 9:40 AM EDT) Magnesium 2.0 1.6 - 2.6 mg/dL [facility] 05/22/2024 9:40 AM EDT 05/22/2024 9:49 AM EDT us Generic External Data Provider LAB BLOOD ORDERAB LES Final Result Performing Organization Address [facility] de Phone Number [facility] [address] [place] [phone] * (ABNORMAL) Urinalysis with Reflex to Microscopic (04/05/2024 8:23 AM EST) Color Urine Yellow [facility] Appearance Urine Clear [facility] PH 6.0 5.0 - 9.0 [facility] Glucose Urine UA Negative Negative mg/dL [facility] Urine Blood Negative Negative [facility] Specific Mcclure - Urine >=1.030(H) 1.005 - 1.025 [facility] Urine Protein Trace Neg-Trace mg/dL [facility] Urine Ketones Negative Negative mg/dL [facility] Nitrite Urine Negative Negative [facility] Leukocyte Esterase Urine Negative Negative [facility] 04/05/2024 8:23 AM EST 04/05/2024 8:26 AM EST us Generic External Data Provider LAB URINE ORDERAB LES Final Result Performing Organization Address [facility] Co de Phone Number [facility] [address] [place] [phone] * HIV Ab/Ag (JARRETT BAINS) (09/14/2022 11:14 AM EDT) HIV AB/AG Nonreactive Nonreactive [facility] Comment:HIV-1 p24 Ag and/or HIV-1/HIV-2 Ab not detected.A test result that is nonreactive does not exclude thepossibility of exposure to or infection with HIV-1 and/orHIV-2. Nonreactive results in this assay for individualswith prior exposure to HIV-1 and/or HIV-2 may be due toantigen and antibody levels that are below the limit ofdetection of this assay.The [employer] Driver HIV Ag/Ab Combo assay result andsupplemental assay results should be interpreted inconjunction with the patient's clinical presentation,history and other laboratory results. If the results areinconsistent with clinical evidence, additional testing issuggested to confirm the result. 09/14/2022 11:1 4 AM EDT 09/14/2022 2:37 PM EDT us Lara Headley MD LAB BLOOD ORDERABLES Fin al Result Performing Organization Address [facility] Co de Phone Number [facility] [address] [place] [phone] * Lipid Panel, Standard (09/14/2022 11:14 AM EDT) Triglycerides 85 mg/dL [facility] Comment:Desirable Triglyceri de: less than 150 mg/dLBorderline High Triglyceride 150-199 mg/dLHigh Triglyceride: 200-499 mg/dLVery High Triglyceride: greater than or equal to 5OO mg/dL Cholesterol 139 mg/dL [facility] Comment:Desirable Cholestero l: less than 200 mg/dLBorderline High Cholesterol: 200-239 mg/dLHigh Cholesterol: greater than 239 mg/dL LDL Cholesterol Calculated 79 mg/dl [facility] Comment:Desirable LDL: less than 100 mg/dLNear Optimal/Above Optimal LDL: 110- 129 mg/dLBorderline High LDL: 130-159 mg/dLHigh LDL: 160-189 mg/dLVery High LDL: greater than or equal to 190 mg/dL HDL Cholesterol 43 mg/dL [facility] Comment:Desirable HDL: great er than 40 mg/dL Note: This HDL assay may give artificially low results in patients with liver disease. 09/14/2022 11:1 4 AM EDT 09/14/2022 2:37 PM EDT Lara Headley MD LAB BLOOD ORDERABLES Fin al Result [facility] [address] [place] [phone] [phone] from Last 3 Months or Most Recently Relevant to Health Maintenance Insurance [facility] [address] C[facility] AD[facility] Care Teams Diesel Engine Specialist Relationship Specialty Start Date End Date Lara Headley MD [address] [place] [phone] PCP - General Family Medicine 08/31/16
--- OUTSIDE RECORDS SUMMARY | 2024-06-01 18:52 | XMS_ITS | Encounter Summary ---
Author Organization [employer] Address [address] [facility] 7t [place] [address] Care Team Providers Care Cloud Software Engineer Name Role Phone Lara Headley MD Primary Care Provider + Reason for Visit * Reason Onset Date Comments Med Refill 05/28/2024 Encounter Details Date Type Department Care Team (Late st Contact Info) Description 05/28/2024 Refill [facility] MEDICINE [address] [place] [address] Chanel Thrasher RN Opioid dependence, uncomplicated (CMS/HCC) [...] the past 12 months, has t he [employer], oil or water [employer] threatened to shut off services in your [...] Description 06/03/2024 9:00 AM EDT Office Visit [address] [address] Christian Arreguin MD [address] [place] [phone] 06/10/2024 9:00 AM EDT Clinical Support [address] [address] Richard Woods, EMILY [address] [place] [phone] 06/11/2024 10:45 AM EDT Office Visit [address] [address] Lara Headley MD [address] [place] [phone] documented as of this encounter Goals Goal Patient Goal Type Associated Problems Recent Progress Patient-Stated? Author Take buprenorphine as prescribed General Yes Price, Chanel, RN Keep your medical appointments Lifestyle No Richard Woods, EMILY documented as of this encounter Visit Diagnoses Diagnosis Opioid dependence, uncomplicated (CMS/HCC) documented in this encounter Additional Health Concerns Assessment Noted Time PHQ-9 Depression Total Score: 3 04/23/19 25 11:02 AM EST documented as of this encounter Care Teams Cloud Software Engineer Relationship Specialty Start Date End Date Lara Headley MD [address] [place] [phone] PCP - General Family Medicine 08/31/16 documented as of this encounter
[2024-06-01 18:57] LABS: Appearance Urine Clear; Color Urine Yellow; Glucose Urine UA Negative (Negative); Leukocyte Esterase Urine Negative (Negative); Nitrite Urine Negative (Negative); Specific Gravity - Urine >= 1.030 (1.005-1.025); Urine Blood Negative (Negative); Urine Ketones Trace mg/dL (Negative); Urine Protein Negative (Neg-Trace)
[2024-06-01 19:22] LABS: Amphetamine Screen Urine Not Detected (Not Detect); Barbiturates, Urine Not Detected (Not Detect); Benzodiazepines Screen Urine Not Detected (Not Detect); Buprenorphine Scr Not Detected (Not Detect); Cannabinoid Screen Urine Not Detected (Not Detect); Cocaine Screen Urine POSITIVE (Not Detect); Fentanyl, urine POSITIVE (Not Detect); Methadone Screen, Urine Not Detected (Not Detect); Opiate Screen Urine POSITIVE (Not Detect); Oxycodone Screen Urine Not Detected (Not Detect); Phencyclidine Screen Urine Not Detected (Not Detect)
[2024-06-01 20:07] VITALS: BP 144/85; PULSE 76; RESP 16; O2SAT 98
--- NOTE | 2024-06-01 22:41 | PC.NURSE ---
R Wrist #[id number] iv removed at patient request
--- NOTE | 2024-06-02 00:09 | PC.NURSE ---
pt tells me he takes seroquel, clonazepam, and melatonin for medications daily. says he is supposed to take suboxone but reportedly has been off of it since he is withdrawing from fentanyl and needs methadone TRUDY Field aware.
--- NOTE | 2024-06-02 00:33 | PC.NURSE ---
Bam Field at bedside having conversation with patient. Pt states if we are not going to give him his medications or methadone then he would rather go buy heroin off the streets and go to shelter [facility] explaining that she will order melatonin and a medication for anxiety but at this time we cannot verify any methadone. pt wanting to leave. Rashida reading up on care notes to determine disposition.
[2024-06-02 00:42] VITALS: BP 144/85; PULSE 76; RESP 16; TEMP -17.7; TEMP 0; O2SAT 98
--- NOTE | 2024-06-02 00:42 | PC.NURSE ---
pt refused vitals and discharge papers.
== END 2024-06-02 00:45 | disposition home or self-care (01) ==
PROVIDERS: Physician Assistant Medical; Emergency Provider Emergency Medicine Emergency Medical Services; PCP Internal Medicine
DX: R45.851 Suicidal ideations (principal); F25.1 Schizoaffective disorder, depressive type; F41.9 Anxiety disorder, unspecified; F14.10 Cocaine abuse, uncomplicated; F11.10 Opioid abuse, uncomplicated; Z51.81 Encounter for therapeutic drug level monitoring; Z79.899 Other long term (current) drug therapy; Z11.52 Encounter for screening for COVID-19; R00.0 Tachycardia, unspecified
CPT/HCPCS: 80053; 80143; 80179; 80307; 81003; 85025; 87635; 93005; 99285; S9485

== ENCOUNTER → 2024-06-01 16:34 | Outpatient (BNV) | payer MEDICAID, SELFPAY | PROVIDERS: Emergency Provider Emergency Medicine Emergency Medical Services; PCP Internal Medicine; Visit Provider Internal Medicine Cardiovascular Disease | DX: R00.0 Tachycardia, unspecified (principal) | CPT/HCPCS: 93010 ==

== ENCOUNTER 2024-06-02 04:32 | Emergency (ER) | payer MEDICAID, SELFPAY ==
--- NOTE | 2024-06-02 | ECG_ITS ---
Test Reason : cocaine use Blood Pressure : */* mmHG Vent. Rate : 68 BPM Atrial Rate : 68 BPM P-R Int : 164 ms QRS Dur : 108 ms QT Int : 390 ms P-R-T Axes : 59 -9 18 degrees QTcB Int : 414 ms Normal sinus rhythm Incomplete right bundle branch block Moderate voltage criteria for LVH, may be normal variant ( R in aVL , [place] product ) Borderline ECG When compared with ECG of 01-Jun-2024 16:53, Vent. rate has decreased by 38 bpm Referred By: Generic ED Physician Electronically Signed By: Lance Lopez
[2024-06-02 04:35] VITALS: BP 160/99; PULSE 94; RESP 16; TEMP 36.7; O2SAT 97; BMI 31.9
--- NOTE | 2024-06-02 05:00 | MHC.EDTECH ---
pt changed over with security. all belongings locked in [facility].
--- NOTE | 2024-06-02 05:49 | ED_ITS ---
HPI - General Adult General Chief complaint: Psychiatric Symptoms Stated complaint: Mental Health Time Seen by Provider: 06/02/24 05:09 Source: patient Mode of arrival: ambulatory Limitations: no limitations History of Present Illness ED Provider: DR. Olmos HPI narrative: 48-year-old male with history of substance use disorder, schizoaffective disorder, opiate use disorder, cocaine use disorder, PTSD, who returned to the ED after he lift earlier thinking that he with drawing from fentanyl, last use of fentanyl was yesterday, no chest pain, no abdominal pain, no runny nose, no diarrhea. No SI, no HI, no hallucination. Patient is seeking to talk with recovery team to start on methadone. Related Data Home Medications ?Medication ?Instructions ?Recorded ?Confirmed melatonin 10 mg tablet 10 mg PO BID PRN sleep 05/22/24 06/02/24 buprenorphine 8 mg-naloxone 2 mg 2 film sublingual DAILY 05/23/24 06/02/24 sublingual film (Suboxone) clonazepam 0.5 mg tablet 0.5 mg PO DAILY PRN anxiety attack 06/02/24 06/02/24 quetiapine 100 mg tablet 100 mg PO BEDTIME PRN insomnia 06/02/24 06/02/24 Previous Rx's ?Medication ?Instructions ?Recorded clonidine HCl 0.1 mg tablet See Rx Instructions .Route 05/04/24 .COMPLEX 30 days #90 tabs Allergies Allergy/AdvReac Type Severity Reaction Status Date / Time No Known Allergies Allergy Verified 06/02/24 04:39 [No Known Allergies*] Review of Systems 2 Review of Systems: All other systems are reviewed and are negative Constitutional: Reports as per HPI and Reports no additional constitutional complaints Eyes: Reports as per HPI and Reports no additional eye complaints Reports system reviewed and no additional complaints, except as documented Cardiovascular: Reports as per HPI and Reports no additional cardiovascular complaints Respiratory: Reports as per HPI and Reports no additional respiratory complaints Gastrointestinal: Reports as per HPI and Reports no additional gastrointestinal complaints Genitourinary: Reports no additional female genitourinary complaints Musculoskeletal: Reports no additional musculoskeletal complaints Skin/Breast: Reports system reviewed and no additional complaints, except as docu Psychiatric: Reports no additional psychiatric complaints Endocrine: Reports no additional endocrine complaints Hematologic/Lymphatic: Reports no additional hematologic/lymphatic complaints Allergic/Immunologic: Reports no additional allergic/immunologic complaints Reports system reviewed and no additional complaints, except as documented and Reports Abnormal speech present PMFSH Past Medical History Medical History Tachycardia Elevated troponin Hypermagnesemia KATHYA (acute kidney injury) Schizoaffective disorder, depressive type Suicidal ideation Polysubstance abuse Opioid use disorder Polysubstance abuse NSTEMI (non-ST elevated myocardial infarction) PTSD (post-traumatic stress disorder) Cocaine use disorder Polysubstance use disorder Social History Social History Household Members: None Household Members Other:: dog, Melvin Housing: Apartment Do you presently have visiting nurse or other home services: No Unable to assess alcohol history related to: Unknown Alcohol intake: never Patient Tobacco Use Status: Never used Tobacco e-Cigarette/Vaping Use: Never Used Second Hand Smoke Exposure: No Substance Use Type: Crack/Cocaine and Heroin Advance Directives: No Advance Directives Information Provided: Yes service: No Sexual orientation: Straight/Heterosexual Physical Exam ED Vital Signs: Vital Signs - 24 hr 06/02/24 04:35 Temperature 98.0 F Pulse Rate 94 Respiratory Rate 16 Blood Pressure 160/99 H Pulse Oximetry 97 Oxygen Delivery Method Room Air BMI result Body Mass Index 31.9 Vital signs have been reviewed and appear to be correct. Blood pressure elevated. Heart rate normal. Respiratory rate normal. Temperature normal. Oxygen saturation normal. Appearance: Alert. Oriented X3. No acute distress. Head: Normal external exam. Normocephalic. Atraumatic. No Shin signs noted. No raccoon eyes noted Eyes: PERRLA. EOMI. Conjunctiva and sclera normal. Eyelids normal. ENT: TM's Normal. Pharynx normal. Uvula midline. Moist mucous membranes. No trismus noted. No drooling noted. No muffled voice noted. Neck: Normal inspection. Neck supple. FROM. No adenopathy. Thyroid Normal. No meningeal signs. No neck mass noted. CVS: Normal heart rate and rhythm. Heart sound normal. No murmurs noted. Pulses normal throughout. Respiratory: No respiratory distress. Painless inspiration. Breath sounds normal. No wheezes/rales/rhonchi noted. Chest nontender. No accessory muscle usage noted or decreased air movement noted. Abdomen: Soft and nontender. Bowel sounds normal in all 4 quadrants. No distention noted. No organomegaly noted. No visible injury noted. Back: No CVA tenderness. Full range of motion noted. Skin: Skin warm and dry. Normal skin color. Normal skin turgor. No rashes/lesions/lacerations noted. Extremities: No lower extremity edema. Extremities exhibit normal range of motion. Extremities nontender. Neuro: Oriented X 3. Cranial nerve exam: II-XII are grossly intact No motor deficit. No sensory deficit. Reflexes normal. Course Reevaluation(s) Reevaluation #1: Substance use disorder seeking detox will consult recovery team. Time: 05:53 Reevaluation #2: patient seen by Addiction medicine. he is declining detox. he has no SI, HI, AH/VH. he would like to be discharged. he gets suboxone at the clinic and can continue going there. VSS. ambulatory and appropriate. stable for d/c home Time: 09:15 Medical Decision Making Differential Diagnosis Differential Diagnoses: The differential diagnosis associated with the presentation includes (SI, HI, hallucination, substance use.) Admission/Observation Consideration of admission/observation: Escalation of care including admission/observation considered Lab Data 06/02/24 08:37 06/02/24 08:37 Labs: Lab Results 06/02/24 06/02/24 Range/Units 08:03 08:37 WBC 5.7 (4.8-10.8) X10*3/uL RBC 4.38 L (4.60-5.80) X10*6/uL Hgb 11.7 L (14.0-18.0) g/dl Hct 35.5 L (42.0-52.0) % MCV 81.1 (80.0-98.0) fL MCH 26.7 L (27.0-33.0) pg MCHC 33.0 (31.0-36.0) g/dl RDW 14.9 (11.0-16.0) % Plt Count 272 (160-400) X10*3/uL MPV 7.9 L (9.4-12.4) fL Immature Gran % (Auto) 0.2 (0.0-0.4) % Neut % (Auto) 57.9 (45-73) % Lymph % (Auto) 29.0 (20-40) % [place] % (Auto) 9.7 (2-11) % Eos % (Auto) 2.5 (0-4) % Baso % (Auto) 0.7 (0-2) % Lymph # (Auto) 1.7 (1.2-4.9) X10*3/uL [place] # (Auto) 0.6 (0.1-1.2) X10*3/uL Eos # (Auto) 0.1 (0.0-0.4) X10*3/uL Baso # (Auto) 0.0 (0.0-0.2) X10*3/uL Abs Immat Gran (auto) 0.01 (0.00-0.03) X10*3/uL Absolute Neuts (auto) 3.3 (2.0-8.3) x10*3/uL Absolute Nucleated RBC 0.000 (0.0-0.012) X10*3/uL Nucleated RBC % (auto) 0.0 (0.0-0.2) /100WBC Sodium 140 (135-145) mmol/L Potassium 4.0 (3.3-5.1) mmol/L Chloride 102 (96-108) mmol/L Carbon Dioxide 30 H (22-29) mmol/L Anion Gap 12 (12-20) BUN 24 H (9-16) mg/dL Creatinine 0.95 (0.5-1.4) mg/dL Estim Creat Clear Calc 88.8 Estimated GFR > 60 Random Glucose 83 (60-115) mg/dL Calcium 9.3 (8.4-10.2) mg/dL Total Bilirubin 0.2 (0.0-1.0) mg/dL AST 34 (5-37) U/L ALT 26 (0-40) U/L Alkaline Phosphatase 95 (39-117) U/L Total Protein 7.2 (6.5-8.0) g/dL Albumin 4.0 (3.5-5.0) g/dL Salicylates < 5.0 L (15-30) mg/dL Urine Opiates Screen Not Detected (Not Detect) Ur Buprenorphine Scrn Not Detected (Not Detect) ng/mL Ur Oxycodone Screen Not Detected (Not Detect) ng/mL Urine Methadone Screen Not Detected (Not Detect) ng/mL Urine Fentanyl Screen POSITIVE H (Not Detect) Acetaminophen < 3 (<30) mcg/mL Ur Barbiturates Screen Not Detected (Not Detect) Ur Phencyclidine Scrn Not Detected (Not Detect) Ur Amphetamines Screen Not Detected (Not Detect) U Benzodiazepines Scrn Not Detected (Not Detect) Urine Cocaine Screen POSITIVE H (Not Detect) U Marijuana (THC) Screen Not Detected (Not Detect) Discharge Plan Discharge Clinical Impression: Substance use disorder Patient Disposition: Home, Self-Care Instructions: Polysubstance Abuse (ED) Additional Instructions: Opiate use disorder You were seen in our Emergency Department today for treatment of opiate use disorder and anxiety. IT IS IMPORTANT THAT YOU FOLLOW UP WITH THE CLINIC TO CONTINUE YOUR SUBOXONE. Please do not feel discouraged, it is a process. The nurse has reviewed with you where to follow up and what information to bring with you, to continue treatment. You also may have been given naloxone (narcan) to take home with you. This medication is used to potentially treat opiate overdose. If you decide you want to stop or cut down on how much you?re using, you can call or walk into our outpatient Addiction Treatment office: [facility] (M-F 9am-5p) [address] [place] [address], [address] [phone] You may have been provided with safer injection?items, please take time to take care of YOU and your health. Use new supplies whenever possible to lessen the chances of infections and other illnesses.? ?If you need more supplies, please go [facility],? [address] [place] [address] OR you can call or text to coordinate delivery of safer supplies. You were also provided a list of several treatment providers in the area.? If you experience any worsening symptoms you cannot control please return to the ED or call 911. Please follow up at your next appointment. Things to look out for are fevers, chest pain, shortness of breath, severe pain, dizziness, fainting or any other concerns. Prescriptions: No Action clonazepam 0.5 mg tablet 0.5 mg PO DAILY PRN (Reason: anxiety attack) quetiapine 100 mg tablet 100 mg PO BEDTIME PRN (Reason: insomnia) clonidine HCl 0.1 mg tablet See Rx Instructions .ROUTE .COMPLEX 30 Days Qty: 90 0RF Rx Instructions: take 1 tab in the morning and 1 at bedtime; may take 1 tab daily as needed for anxiety melatonin 10 mg tablet 10 mg PO BID PRN (Reason: sleep) buprenorphine-naloxone [Suboxone] 8-2 mg film 2 film sublingual DAILY Patient Comments: Pt states he took a few days ago Interventions: [place]-Suicide Risk Severity Scale Last Done: 06/02/24 05:10 Print Language: Armenian
--- OUTSIDE RECORDS SUMMARY | 2024-06-02 06:26 | XMS_ITS | Encounter Summary ---
Author Organization [employer] Address [address] [facility] [address] [place] [address] Care Team Providers Care Cotton Bag Sewer Name Role Phone Lara Headley MD Primary Care Provider + Reason for Visit * Reason Onset Date Comments Med Refill 05/27/2024 Encounter Details Date Type Department Care Team (Late st Contact Info) Description 05/27/2024 Refill [facility] MEDICINE [address] [place] [address] Chanel Thrasher RN Social History Tobacco Use [...] the past 12 months, has t he [employer], oil or water company threatened to shut [...] Description 06/03/2024 9:00 AM EDT Office Visit [address] [address] Christian Arreguin MD [address] [place] [phone] 06/10/2024 9:00 AM EDT Clinical Support [address] [address] Rcihard Woods RN [address] [place] [phone] 06/11/2024 10:45 AM EDT Office Visit [address] [address] Lara Headley MD [address] [place] [address] documented as of this encounter Goals Goal [...] documented as of this encounter Care Teams Cotton Bag Sewer Relationship Specialty Start Date End Date Lara Headley MD [address] [place] [address] PCP - General Family Medicine 08/31/16 documented as of this encounter
--- OUTSIDE RECORDS SUMMARY | 2024-06-02 06:26 | XMS_ITS ---
Author Organization [employer] Address [address] [facility] 7t [place] [address] Care Team Providers Care Well Testing Operator Name Role Phone Lara Headley MD Primary Care Provider + CHW Complex Status:Identified (Enrolling) Start date:05/25/2024 Enrollment reason:ADT Feed Overview ED- Pt went to [facility] on 05/22/24. Please outreach pt Continued Care and Services Coordination
--- OUTSIDE RECORDS SUMMARY | 2024-06-02 06:26 | XMS_ITS ---
Author Organization [employer] Address [address] [facility] [address]t [place] [address] Care Team Providers Care Audit Spec Name Role Phone Lara Headley MD Primary Care Provider + CM Complex Status:Identified (Enrolling) Start date:05/25/2024 Enrollment reason:ADT Feed Overview ED- Pt went to [facility] on 05/22/24. Case Team Name Relationship Phone Dalia Ruby RN Registered Nurse(Responsible S taff) Continued Care and Services Coordination
--- OUTSIDE RECORDS SUMMARY | 2024-06-02 06:26 | XMS_ITS | Clinical Summary ---
Author Organization [employer] Address [address] [facility] [address] [place] [address] Care Team Providers Care Roll Capper Name Role Phone Lara Headley MD Primary [...] (Tylenol) 500 MG tabletIndication s:Dental caries,Fractured dental orthodox without loss of material Take 1 tablet [...] of anxiety and addiction, reach out to academic coach. Continue to FU with [facility] program. FU with me in 3-4 weeks. Moderate benzodiazepine use disorder 03/05/2024 Assessment & Plan (03/05/2024 11:22 AM EST): Chronically using Klonopin BID off the street, advised risk of overdose and being tainted with other drugs. 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 Advised [...] of MH treatment, reach out to a academic coach (he doesn't have one, he doesn't [...] EDT): Unclear if he;'s taking Wellbutrin, last picket labor union was on 06/24 I called to fu with . I gave him [facility] info to reach out for an appt. He feels safe at home now and is able to reach out for safety. FU at next appt, needs to bring med bottles. Assessment & Plan (04/26/2023 3:25 PM EST): Pt probably has his anxiety exacerbated by methadone taper Counseled to discuss with academic coach regarding holding off on methadone taper Start Wellbutrin 150 mg and fu at next visit Continue close fu with therapist Saúl Angeles, I will refer to to help him coordinate referral to a psych Rx in the [facility]. Assessment & Plan (12/25/2022 9:50 AM EDT): [...] off methadone. Advised to reach out to academic coach, discussed with him re early signs [...] out for safety, and to work with academic coach - f/u in 3 months Assessment & Plan (04/26/2023 9:29 AM EST): Cutting down on methadone, is probably having increased anxiety due to this/?withdrawal Sx Counseled to slow down on taper and fu w academic coach We discussed importance of not using recreational substances Assessment & Plan (10/03/2022 12:04 PM EDT): Currently on methadone 30mg continues to live in intermediate where he has academic coach and support groups Assessment & Plan (09/03/2022 1:34 PM EDT): Currently on methadone 30mg in [facility] Continue residential recovery program in [facility] Counseled to avoid alcohol, drugs, currently sober FU PRN Encounters * This document contains information received from the source organization and may not represent a complete record from that organization. Date Type Department Care Team Description 06/01/2024 Orders Only GENERIC EXTERNAL DATA DEPARTMENT Provider, Generic External Data 05/28/[address] [address] Chanel Thrasher RN Opioid dependence, uncomplicated (CMS/HCC) 05/27/2024 9:00 AM EDT Office Visit [address] [address] Christian Arreguin MD Opioid type dependence, continuous (CMS/HCC) (Primary Dx) 05/27/[address] [address] Chanel Thrasher RN 05/27/2024 Travel 05/25/2024 Patient Outreach [address] [address] Lara Headley MD Transition Of Care (Tcm) (HDF scheduled) 05/25/2024 Patient Outreach [facility] [address] [place] [address] Lara Headley MD 05/25/2024 Patient Outreach [address] [address] Lara Headley MD 05/22/2024 Orders Only GENERIC EXTERNAL DATA DEPARTMENT Provider, Generic External Data 05/21/2024 Patient Outreach [address] [address] Armand Dykes Recovery Supports 05/21/[address] [address] Lara Headley MD No Show 05/20/2024 9:00 AM EDT Office Visit [address] [address] Christian Arreguin MD Opioid dependence, uncomplicated (CMS/HCC) (Primary Dx) 05/20/[address] [address] Chanel Thrasher RN Opioid dependence, uncomplicated (CMS/HCC) 05/20/2024 Travel 05/18/2024 Patient Outreach [address] [address] Jack Tavares Recovery Supports 05/18/[address] [address] Lara Headley MD No Show 05/15/[address] [address] Chanel Thrasher RN Opioid dependence, uncomplicated (CMS/HCC) 05/15/2024 Patient Outreach [address] [address] Lara Headley MD Care Coordination (Outreach) 05/14/2024 Patient Outreach [address] [address] Evaristo Canchola Recovery Supports 05/13/2024 9:00 AM EDT Clinical Support [address] [address] Chanel Thrasher RN Opioid dependence, uncomplicated (CMS/HCC) (Primary Dx) 05/13/2024 Travel 05/12/2024 Patient Outreach [address] [address] Evaristo Canchola Recovery Supports 05/12/2024 Patient Outreach [address] [address] Jack Tavares Recovery Supports 05/12/2024 Travel 05/11/2024 Patient Outreach [address] [address] Jack Tavares Recovery Supports 05/11/[address] [address] Chanel Thrasher RN Opioid dependence, uncomplicated (CMS/HCC) 05/08/2024 Patient Outreach [address] [address] Lara Headley MD Care Coordination (CHW outreach for SDOH-patient declined to participate ) 05/08/2024 Patient Outreach [address] [address] Lara Headley MD Transition Of Care (Tcm) (HDF- scheduled , SDOH is positive tobacco screening is negative) 05/08/2024 Population Health Risk Score [facility] (C3) Department [address] [place] [address] [phone] Provider, Population Health Generic 05/08/2024 Patient Outreach [facility] [address] [place] [address] Lara Headley MD Transition Of Care (Tcm) 05/08/2024 Patient Outreach [facility] [address] [place], [place] [phone] Lara Headley MD Care Coordination (Outreach) 05/07/2024 2:30 PM EDT Office Visit [address] [address] Dalia El MD Opioid dependence, uncomplicated (CMS/HCC) (Primary Dx) 05/07/2024 Patient Outreach [address] [address] Jack Tavares Recovery Supports 05/07/2024 Patient Outreach [address] [address] Evaristo Canchola Recovery Supports 05/07/2024 Travel 05/06/2024 9:00 AM EDT Office Visit [address] [address] Christian Arreguin MD Opioid dependence, uncomplicated (CMS/HCC) (Primary Dx) 05/06/2024 Travel 05/05/2024 Patient Outreach [address] [address] Evaristo Canchola Recovery Supports 05/05/[address] [address] Dalia El MD Opioid dependence, uncomplicated (CMS/HCC) 05/04/2024 1:00 PM EDT Clinical Support [address] [address] Richard Woods RN Opioid dependence, uncomplicated (CMS/HCC) (Primary Dx) 05/04/2024 Patient Outreach [facility] [address] [place] [address] Lara Headley MD Care Coordination 05/04/2024 Patient Outreach [address] [address] Evaristo Canchola Recovery Supports 05/04/2024 Travel 05/04/2024 Refill [facility] [address] [place] [address] Richard Woods RN Opioid dependence, uncomplicated (CMS/HCC) 04/30/[address] [address] Lara Headley MD No Show 04/29/2024 Patient Outreach [facility] [address] [place], [place] [phone] Lara Headley MD Care Coordination (Outreach) 04/28/[address] [address] Lara Headley MD Chart prep 04/27/2024 Orders Only GENERIC EXTERNAL DATA DEPARTMENT Provider, Generic External Data 04/26/2024 Orders Only GENERIC EXTERNAL DATA DEPARTMENT Provider, Generic External Data 04/24/2024 Patient Outreach [address] [address] Lara Headley MD Transition Of Care (Tcm) 04/23/2024 2:45 PM EST Office Visit [address] [address] Dalia El MD Opioid dependence, uncomplicated (CMS/HCC) (Primary Dx); Schizoaffective disorder, depressive type (CMS/HCC) 04/23/[address] [phone] Lara Headley MD 04/23/[address] [address] Dalia El MD Opioid dependence, uncomplicated (CMS/HCC) 04/23/2024 Travel 04/23/2024 Patient Outreach [facility] [address] [facility] [place] [address] Sharif Rider Recovery Supports 04/20/2024 Patient Outreach [facility] [address] [facility] [place] [address] Jack Tavares Recovery Supports 04/17/2024 Patient Outreach [facility] [address] [place] [address] Sharif Rider Recovery Supports 04/16/2024 Patient Outreach [facility] [address] [place] [address] Lara Headley MD Care Coordination (Outreach/) 04/16/2024 Travel 04/06/2024 Patient Outreach [facility] [address] [facility] [place] [address] Lara Headley MD Transition Of Care (Tcm) 04/05/2024 Orders Only GENERIC EXTERNAL DATA DEPARTMENT Provider, Generic External Data 04/02/2024 2:30 PM EST Office Visit [facility] [place] [address] Dalia El MD Opioid type dependence, continuous (CMS/[facility]) (Primary Dx) 04/02/2024 Refill [facility] [place] [address] Richard Woods RN Opioid dependence, uncomplicated (CMS/HCC) 04/02/2024 Patient Outreach [address] [address] Sharif Rider Recovery Supports 04/02/2024 Travel 04/01/2024 Telephone [facility] [address] [place] [address] Richard Woods RN 03/30/2024 Patient Outreach [facility] [address] [place] [address] Sharif Rider Recovery Supports 03/30/2024 Telephone [facility] [address] [place] [address] Lara Headley MD 03/30/2024 Refill [facility] [address] [place] [address] Richard Woods RN Opioid dependence, uncomplicated (CMS/HCC) 03/27/2024 11:30 AM EST Clinical Support [facility] [address] [facility] [place] [address] Richard Woods RN Opioid dependence, uncomplicated (CMS/HCC) (Primary Dx) 03/27/2024 Travel 03/26/2024 Patient Outreach [facility] [address] [place] [address] Lara Headley MD Care Coordination (Outreach) 03/23/2024 Refill [facility] [address] [facility] [place] [address] Richard Woods RN Opioid dependence, uncomplicated (CMS/HCC) 03/23/2024 Orders Only GENERIC EXTERNAL DATA DEPARTMENT Provider, Generic External Data 03/22/2024 Orders Only GENERIC EXTERNAL DATA DEPARTMENT Provider, Generic External Data 03/20/2024 9:50 AM EST Clinical Support [facility] [address] [place] [address] Richard Woods RN Opioid dependence, uncomplicated (CMS/HCC) (Primary Dx) 03/20/2024 Patient Outreach [facility] [address] [place] [address] Sharif Rider Recovery Supports 03/20/2024 Travel 03/19/2024 Patient Outreach [facility] [address] [place] [address] Lara Headley MD Care Coordination (Outreach) 03/17/2024 Refill [facility] [address] [place] [address] Richard Woods RN Opioid dependence, uncomplicated (CMS/HCC) 03/12/2024 1:45 PM EST Office Visit [facility] [address] [place] [address] Dalia El MD Opioid dependence, uncomplicated (CMS/HCC) (Primary Dx); Generalized anxiety disorder 03/12/2024 Refill [facility] [address] [place] [address] Richard Woods RN Opioid dependence, uncomplicated (CMS/HCC) 03/12/[address] [address] Richard Woods RN Opioid dependence, uncomplicated (CMS/HCC) 03/12/2024 Travel 03/12/2024 Patient Outreach [address] [address] Lara Headley MD Transition Of Care (Tcm) 03/12/[address] [address] Lara Headley MD Error (VOID this visit) 03/11/2024 Patient Outreach [facility] [address] [place], [place] [phone] Lara Headley MD Care Coordination (Outreach) 03/11/2024 Patient Outreach [address] [address] Armand Dykes 03/11/2024 Patient Outreach [address] [address] Jack Tavares Recovery Supports 03/11/2024 Travel 03/10/2024 Patient Outreach [address] [address] Evaristo Canchola Recovery Supports 03/09/2024 Patient Outreach [address] [address] Lara Headley MD Transition Of Care (Tcm) 03/09/[address] [address] Lara Headley MD 03/06/2024 Patient Outreach [address] [address] Armand Dykes Recovery Supports 03/05/2024 11:30 AM EST Clinical Support [address] [address] Richard Woods RN Opioid dependence, uncomplicated (CMS/HCC) (Primary Dx) 03/05/2024 10:45 AM EST Office Visit [address] [address] Lara Headley MD Generalized anxiety disorder (Primary Dx); Essential hypertension; Polysubstance abuse (CMS/HCC); Moderate benzodiazepine use disorder ([facility]/HCC); Erectile dysfunction, unspecified erectile dysfunction type 03/05/2024 Refill [facility] [address] [place] [address] Richard Woods RN Opioid dependence, uncomplicated (CMS/HCC) 03/05/2024 Patient Outreach [facility] [address] [place], [place] [phone] Armand Dykes Recovery Supports 03/05/2024 Travel 03/04/2024 Telephone [facility] [address] [place], [place] [phone] Gaby Black MA Chart prep 03/04/2024 Patient Outreach [facility] [address] [place], [place] [phone] Lara Headley MD Care Coordination (Outreach) from Last 3 Months Immunizations Name Administration [...] Description 06/03/2024 9:00 AM EDT Office Visit [facility] [address] [place] [address] Christian Arreguin MD [address] [place] [address] 06/10/2024 9:00 AM EDT Clinical Support [facility] [address] [place] [address] Richard Woods, EMILY [address] [place] [address] 06/11/2024 10:45 AM EDT Office Visit [facility] [address] [place] [phone] Lara Headley MD [address] [place], [place] [phone] Health Maintenance Due Date Last Done Comments [...] your medical appointments Lifestyle No Richard Woods, advisor consultant Procedure Name Priority Date/Time Associated Diagnosis Comments DRUG MONITOR, PANEL 1, SCREEN, URINE Routine 06/01/2024 6:49 PM EDT URINALYSIS WITH REFLEX TO MICROSCOPIC Routine 06/01/2024 6:49 PM EDT ACETAMINOPHEN LEVEL Routine 06/01/2024 4 [...] Relevant to Health Maintenance Results * (ABNORMAL) Urinalysis with Reflex to Microscopic (06/01/2024 6:49 PM EDT) Only the most recent of2 resultswithin the time period is included. Color Urine Yellow [facility] Appearance Urine Clear [facility] PH 6.0 5.0 - 9.0 [facility] Glucose Urine UA Negative Negative mg/dL [facility] Urine Blood Negative Negative [facility] Specific [place] - Urine >=1.030(H) 1.005 - 1.025 [facility] Urine Protein Negative Neg-Trace mg/dL [facility] Urine Ketones Trace Negative mg/dL [facility] Nitrite Urine Negative Negative [facility] Leukocyte Esterase Urine Negative Negative [facility] 06/01/2024 6:49 PM EDT 06/01/2024 6:54 PM EDT us Generic External Data Provider LAB URINE ORDERAB LES Final Result [facility] [address] [place] [address] [phone] * (ABNORMAL) Drug Monitoring, Panel 1, Screen, Urine (06/01/2024 6:49 PM EDT) Only the most recent of5 resultswithin the time period is included. Opiate Screen Urine POSITIVE(A) Not Detect [facility] Comment:Opiate cut-off is 30 0 ng/mL.Positive results are unconfirmed and should not be used fornon-medical purposes. Barbiturates, Urine Not Detected Not Detect [facility] Comment:Barbiturate cut-off is 200 ng/mL.Positive results are unconfirmed and should not be used fornon-medical purposes. Phencyclidine Screen Urine Not Detected Not Detect [facility] Comment:Phencyclidine cut-of f is 25 ng/mL.Positive results are unconfirmed and should not be used fornon-medical purposes. Amphetamine Screen Urine Not Detected Not Detect [facility] Comment:Amphetamine cut-off is 1000 ng/mL.Positive results are unconfirmed and should not be used fornon-medical purposes. Benzodiazepines Screen Urine Not Detected Not Detect [facility] Comment:Benzodiazepine cut-o ff is 200 ng/mL.Positive results are unconfirmed and should not be used fornon-medical purposes. Cocaine Screen Urine POSITIVE(A) Not Detect [facility] Comment:Cocaine cut-off is 3 00 ng/mL.Positive results are unconfirmed and should not be used fornon-medical purposes. Cannabinoid Screen Urine Not Detected Not Detect [facility] Comment:Cannabinoid cut-off is 50 ng/mL.Positive results are unconfirmed and should not be used fornon-medical purposes. Methadone Screen, Urine Not Detected Not Detect ng/mL [facility] Comment:Methadone cut-off is 300 ng/mL.Positive results are unconfirmed and should not be used fornon-medical purposes. FENTANYL URINE POSITIVE(A) Not Detect [facility] Comment:Fentanyl cut-off is 1 ng/mL.Positive results are unconfirmed and should not be used fornon-medical purposes. Oxycodone Urine Screen Not Detected Not Detect ng/mL [facility] Comment:Oxycodone cut-off is 100 ng/mL.Positive results are unconfirmed and should not be used fornon-medical purposes. Buprenorphine Screen Not Detected Not Detect ng/mL [facility] Comment:Buprenorphine cut-of f is 5 ng/mL.Positive results are unconfirmed and should not be used fornon-medical purposes. 06/01/2024 6:49 PM EDT 06/01/2024 6:54 PM EDT us Generic External Data Provider LAB URINE ORDERAB LES Final Result Performing Organization Address City/State/[facility] Co de Phone Number [facility] [address] [place] [phone] * COVID-19 ID NOW (RODRIGUEZ) (06/01/2024 4:42 PM EDT) Only the most recent of2 resultswithin the time period is included. IDNOW SERIAL# [id number] [facility] COVID-19 TEST Negative Negative [facility] COVID-19 NOTE See Note [facility] Comment: Results are for the identification of SARS-CoV2 RNA. TheSARS-CoV2 RNA is generally detectable in respiratory samplesduring the acute phase of infection. Positive results areindicative of the presence of SARS-CoV-2 RNA; clinicalcorrelation with patient history and other diagnosticinformation is necessary to determine patient infectionstatus. Positive results do not rule out bacterial infectionor co- infection with other viruses.Testing facilities within the [facility] and itsterritories are required to report all [...] use by authorized laboratories.Testing performed on the [employer] ID NOW utilizing NAAT. 06/01/2024 4:42 PM EDT 06/01/2024 5:00 PM EDT us Generic External Data Provider LAB MOLECULAR MARIANA GNOSTICS ORDERABLES Final Result Performing Organization Address [facility] Co de Phone Number [facility] [address] [place] [phone] * Ethanol (06/01/2024 4:42 PM EDT) Only the most recent of3 resultswithin the time period is included. Pathologist [facility] ETHANOL (MG/DL) IN SER/PLAS <10 mg/dL [facility] Comment:Serum/plasma ethanol results are to be used formedical/treatment purposes only. 06/01/2024 4:42 PM EDT 06/01/2024 4:56 PM EDT Generic External Data Provider LAB BLOOD ORDERAB LES Final Result Performing Organization Address [facility] Co de Phone Number [facility] [address] [place] [phone] * (ABNORMAL) CBC auto differential (06/01/2024 4:42 PM EDT) Only the most recent of5 resultswithin the time period is included. White Blood Count 4.7(L) 4.8 - 10.8 X10*3/uL [facility] Red Blood Count 4.48(L) 4.60 - 5.80 X10*6/uL [facility] Hemoglobin 11.6(L) 14.0 - 18.0 g/dl [facility] Hematocrit 36.6(L) 42.0 - 52.0 % [facility] Mean Corpuscular Volume 81.7 80.0 - 98.0 fL [facility] Mean Corpuscular Hemoglobin 25.9(L) 27.0 - 33.0 pg [facility] Mean Corpuscular HGB Conc 31.7 31.0 - 36.0 g/dl [facility] Red Cell Distribution Width 15.1 11.0 - 16.0 % [facility] Platelet Count 309 160 - 400 X10*3/uL [facility] Mean Platelet Volume 8.1(L) 9.4 - 12.4 fL [facility] Neutrophils Percent Auto 45.6 45 - 73 % [facility] Imm Gran Pct Auto 0.2 0.0 - 0.4 % [facility] Lymphocytes Percent Auto 40.9(H) 20 - 40 % [facility] Monocytes Percent Auto 10.6 2 - 11 % [facility] Eosinophils Percent Auto 1.9 0 - 4 % [facility] Basophils Percent Auto 0.8 0 - 2 % [facility] NRBC Pct Auto 0.0 0.0 - 0.2 /100WBC [facility] Neutrophils Absolute Auto 2.2 2.0 - 8.3 x10*3/uL [facility] Imm Gran Abs Auto 0.01 0.00 - 0.03 X10*3/uL [facility] Lymphocytes Absolute Auto 1.9 1.2 - 4.9 X10*3/uL [facility] Monocytes Absolute Auto 0.5 0.1 - 1.2 X10*3/uL [facility] Eosinophils Absolute Auto 0.1 0.0 - 0.4 X10*3/uL [facility] Basophils Absolute Auto 0.0 0.0 - 0.2 X10*3/uL [facility] NRBC Abs Auto 0.000 0.0 - 0.012 X10*3/uL [facility] 06/01/2024 4:42 PM EDT 06/01/2024 4:56 PM EDT Generic External Data Provider LAB BLOOD ORDERAB LES Final Result Performing Organization Address [facility] Phone Number [facility] [address] [place] [phone] * Acetaminophen level (06/01/2024 4:42 PM EDT) Only the most recent of2 resultswithin the time period is included. Acetaminophen LAB <3 <30 mcg/mL [facility] 06/01/2024 4:42 PM EDT 06/01/2024 4:56 PM EDT Generic External Data Provider LAB BLOOD ORDERAB LES Final Result Performing Organization Address [facility] [address] [place] [phone] * (ABNORMAL) Salicylate (06/01/2024 4:42 PM EDT) Only the most recent of2 resultswithin the time period is included. Salicylate <5.0(L) 15 - 30 mg/dL [facility] 06/01/2024 4:42 PM EDT 06/01/2024 4:56 PM EDT Generic External Data Provider LAB BLOOD ORDERAB LES Final Result Performing Organization Address [facility] Phone Number [facility] [address] [place] [phone] * (ABNORMAL) Comprehensive Metabolic Panel (06/01/2024 4:42 PM EDT) Only the most recent of5 resultswithin the time period is included. Sodium 140 135 - 145 mmol/L [facility] Potassium 3.7 3.3 - 5.1 mmol/L [facility] Chloride 103 96 - 108 mmol/L [facility] Carbon Dioxide 28 22 - 29 mmol/L [facility] Anion Gap 13 12 - 20 [facility] Urea Nitrogen (BUN) 19(H) 9 - 16 mg/dL [facility] Creatinine, Serum 0.90 0.5 - 1.4 mg/dL [facility] Creatinine Clr Calc Pharmacy 93.8 [facility] Comment:eGFR (calculated fro m the MDRD study equation) and eCrCl(calculated from the Cockcroft-Gault equation) are based ondifferent parameters and may not yield comparable results.If eCrCl result is absurd, please check patient'sheight/weight. Estimated Glomerular Filt Rate >60 [facility] Comment:Chronic Kidney Disea se: Estimated GFR < 60 mL/min/1.43h4Clvrpw Kidney Disease: Estimated GFR < 15 mL/min/1.73m2 Glucose 85 60 - 115 mg/dL [facility] Calcium 9.1 8.4 - 10.2 mg/dL [facility] Bilirubin, Total 0.3 0.0 - 1.0 mg/dL [facility] Aspartate Amino Transferase 31 5 - 37 U/L [facility] Alanine Aminotransferase 24 0 - 40 U/L [facility] Total Protein 7.4 6.5 - 8.0 g/dL [facility] Albumin Level 4.2 3.5 - 5.0 g/dL [facility] Alkaline Phosphatase 83 39 - 117 U/L [facility] 06/01/2024 4:42 PM EDT 06/01/2024 4:56 PM EDT us Generic External Data Provider LAB BLOOD ORDERAB LES Final Result [facility] [address] [place] [phone] [phone] * POCT RIN-14 Urine Drug Screen [...] OR DERABLES Edited Result - Final * Urinalysis w/reflex microscopic (05/22/2024 9:40 AM EDT) Only the most recent of3 resultswithin the time period is included. Color Urine Yellow [facility] Appearance Urine Clear [facility] PH 7.0 5.0 - 9.0 [facility] Glucose Urine UA Negative Negative mg/dL [facility] Urine Blood Negative Negative [facility] Specific [place] - Urine 1.020 1.005 - 1.025 [facility] Urine Protein Trace Neg-Trace mg/dL [facility] Urine Ketones 15 Negative mg/dL [facility] Nitrite Urine Negative Negative [facility] Leukocyte Esterase Urine Negative Negative [facility] 05/22/2024 9:40 AM EDT 05/22/2024 9:49 AM EDT Narrative [facility] - 05/22/2024 9:55 AM EDT [id number], Clean Catch us Generic External Data Provider LAB URINE ORDERAB LES Final Result [facility] [address] [place] [address] [phone] * Magnesium (05/22/2024 9:40 AM EDT) Magnesium 2.0 1.6 - 2.6 mg/dL [facility] 05/22/2024 9:40 AM EDT 05/22/2024 9:49 AM EDT us Generic External Data Provider LAB BLOOD ORDERAB LES Final Result Performing Organization Address [facility] Co de Phone Number [facility] [address] [place] [phone] * HIV Ab/Ag ([facility]) (09/14/2022 11:14 AM EDT) HIV AB/AG Nonreactive Nonreactive [facility] Comment:HIV-1 p24 Ag and/or HIV-1/HIV-2 Ab not detected.A test result that is nonreactive does not exclude thepossibility of exposure to or infection with HIV-1 and/orHIV-2. Nonreactive results in this assay for individualswith prior exposure to HIV-1 and/or HIV-2 may be due toantigen and antibody levels that are below the limit ofdetection of this assay.The Rodriguez Hand Striper HIV Ag/Ab Combo assay result andsupplemental assay results should be interpreted inconjunction with the patient's clinical presentation,history and other laboratory results. If the results areinconsistent with clinical evidence, additional testing issuggested to confirm the result. 09/14/2022 11:1 4 AM EDT 09/14/2022 2:37 PM EDT us Lara Headley MD LAB BLOOD ORDERABLES Fin al Result Performing Organization Address [facility] Co de Phone Number [facility] [address] [place] [phone] * Lipid Panel, Standard (09/14/2022 11:14 AM EDT) Triglycerides 85 mg/dL [facility] Comment:Desirable Triglyceri de: less than 150 mg/dLBorderline High Triglyceride 150-199 mg/dLHigh Triglyceride: 200-499 mg/dLVery High Triglyceride: greater than or equal to 5OO mg/dL Cholesterol 139 mg/dL [facility] Comment:Desirable Cholestero l: less than 200 mg/dLBorderline High Cholesterol: 200-239 mg/dLHigh Cholesterol: greater than 239 mg/dL LDL Cholesterol Calculated 79 mg/dl [facility] Comment:Desirable LDL: less than 100 mg/dLNear Optimal/Above Optimal LDL: 110- 129 mg/dLBorderline High LDL: 130-159 mg/dLHigh LDL: 160-189 mg/dLVery High LDL: greater than or equal to 190 mg/dL HDL Cholesterol 43 mg/dL [facility] Comment:Desirable HDL: great er than 40 mg/dL Note: This HDL assay may give artificially low results in patients with liver disease. 09/14/2022 11:1 4 AM EDT 09/14/2022 2:37 PM EDT us Lara Headley MD LAB BLOOD ORDERABLES Fin al Result [facility] [address] [place] [phone] [phone] from Last 3 Months or Most Recently Relevant to Health Maintenance Insurance [facility] AD[facility] Care Teams Roll Capper Relationship Specialty Start Date End Date Lara Headley MD [address] [place] [phone] PCP - General Family Medicine 08/31/16
--- OUTSIDE RECORDS SUMMARY | 2024-06-02 06:26 | XMS_ITS | Encounter Summary ---
Author Organization [employer] Address [address] [facility] [address]t [place] [address] Care Team Providers Care Neurology Epilepsy Physician Name Role Phone Lara Headley MD Primary [...] Description 06/03/2024 9:00 AM EDT Office Visit [address] [address] Christian Arreguin MD [address] [place] [address] 06/10/2024 9:00 AM EDT Clinical Support [address] [address] Richard Woods RN [address] [place] [address] 06/11/2024 10:45 AM EDT Office Visit [address] [address] Lara Headley MD [address] [place] [address] [phone] documented as of this encounter Goals Goal Patient Goal Type Associated Problems Recent Progress Patient-Stated? Author Take buprenorphine as prescribed General Yes Chanel Thrasher RN Keep your medical appointments Lifestyle No Richard Woods RN documented as of this encounter Procedures Procedure Name Priority Date/Time Associated Diagnosis Comments URINALYSIS WITH REFLEX TO MICROSCOPIC Routine 06/01/2024 6:49 PM EDT DRUG MONITOR, PANEL 1, SCREEN, URINE Routine 06/01/2024 6:49 PM EDT COVID-19 ID NOW (RODRIGUEZ) Routine 06/01/2024 4:42 PM EDT ETHANOL Routine 06/01/2024 4:42 PM EDT CBC WITH AUTO DIFFERENTIAL Routine 06/01/2024 4:42 PM EDT ACETAMINOPHEN LEVEL Routine 06/01/2024 4 :42 PM EDT SALICYLATE Routine 06/01/2024 4:42 PM EDT COMPREHENSIVE METABOLIC PANEL Routine 06/01/2024 4:42 PM EDT documented in this encounter Results * (ABNORMAL) Drug Monitoring, Panel 1, Screen, Urine (06/01/2024 6:49 PM EDT) Opiate Screen Urine POSITIVE(A) Not Detect [facility] Comment:Opiate cut-off is 30 0 ng/mL.Positive results are unconfirmed and should not be used fornon-medical purposes. Barbiturates, Urine Not Detected Not Detect [facility] Comment:Barbiturate cut-off is 200 ng/mL.Positive results are unconfirmed and should not be used fornon-medical purposes. Phencyclidine Screen Urine Not Detected Not Detect [facility] Comment:Phencyclidine cut-of f is 25 ng/mL.Positive results are unconfirmed and should not be used fornon-medical purposes. Amphetamine Screen Urine Not Detected Not Detect [facility] Comment:Amphetamine cut-off is 1000 ng/mL.Positive results are unconfirmed and should not be used fornon-medical purposes. Benzodiazepines Screen Urine Not Detected Not Detect [facility] Comment:Benzodiazepine cut-o ff is 200 ng/mL.Positive results are unconfirmed and should not be used fornon-medical purposes. Cocaine Screen Urine POSITIVE(A) Not Detect [facility] Comment:Cocaine cut-off is 3 00 ng/mL.Positive results are unconfirmed and should not be used fornon-medical purposes. Cannabinoid Screen Urine Not Detected Not Detect [facility] Comment:Cannabinoid cut-off is 50 ng/mL.Positive results are unconfirmed and should not be used fornon-medical purposes. Methadone Screen, Urine Not Detected Not Detect ng/mL [facility] Comment:Methadone cut-off is 300 ng/mL.Positive results are unconfirmed and should not be used fornon-medical purposes. FENTANYL URINE POSITIVE(A) Not Detect [facility] Comment:Fentanyl cut-off is 1 ng/mL.Positive results are unconfirmed and should not be used fornon-medical purposes. Oxycodone Urine Screen Not Detected Not Detect ng/mL [facility] Comment:Oxycodone cut-off is 100 ng/mL.Positive results are unconfirmed and should not be used fornon-medical purposes. Buprenorphine Screen Not Detected Not Detect ng/mL [facility] Comment:Buprenorphine cut-of f is 5 ng/mL.Positive results are unconfirmed and should not be used fornon-medical purposes. 06/01/2024 6:49 PM EDT 06/01/2024 6:54 PM EDT us Generic External Data Provider LAB URINE ORDERAB LES Final Result [facility] [address] [place] [phone] * (ABNORMAL) Urinalysis with Reflex to Microscopic (06/01/2024 6:49 PM EDT) Color Urine Yellow [facility] Appearance Urine Clear [facility] PH 6.0 5.0 - 9.0 [facility] Glucose Urine UA Negative Negative mg/dL [facility] Urine Blood Negative Negative [facility] Specific [place] - Urine >=1.030(H) 1.005 - 1.025 [facility] Urine Protein Negative Neg-Trace mg/dL [facility] Urine Ketones Trace Negative mg/dL [facility] Nitrite Urine Negative Negative [facility] Leukocyte Esterase Urine Negative Negative [facility] 06/01/2024 6:49 PM EDT 06/01/2024 6:54 PM EDT us Generic External Data Provider LAB URINE ORDERAB LES Final Result Performing Organization Address [facility]/ZIP Co de Phone Number [facility] [address] [place] [phone] * Acetaminophen level (06/01/2024 4:42 PM EDT) Acetaminophen LAB <3 <30 mcg/mL [facility] 06/01/2024 4:42 PM EDT 06/01/2024 4:56 PM EDT us Generic External Data Provider LAB BLOOD ORDERAB LES Final Result Performing Organization Address [facility] Co de Phone Number [facility] [address] [place] [phone] * (ABNORMAL) Salicylate (06/01/2024 4:42 PM EDT) Salicylate <5.0(L) 15 - 30 mg/dL [facility] 06/01/2024 4:42 PM EDT 06/01/2024 4:56 PM EDT us Generic External Data Provider LAB BLOOD ORDERAB LES Final Result Performing Organization Address [facility] Co de Phone Number [facility] [address] [place] [phone] * Ethanol (06/01/2024 4:42 PM EDT) ETHANOL (MG/DL) IN SER/PLAS <10 mg/dL [facility] Comment:Serum/plasma ethanol results are to be used formedical/treatment purposes only. 06/01/2024 4:42 PM EDT 06/01/2024 4:56 PM EDT us Generic External Data Provider LAB BLOOD ORDERAB LES Final Result [facility] [address], [place] [phone] * (ABNORMAL) Comprehensive Metabolic Panel (06/01/2024 4:42 PM EDT) Sodium 140 135 - 145 mmol/L [facility] Potassium 3.7 3.3 - 5.1 mmol/L [facility] Chloride 103 96 - 108 mmol/L [facility] Carbon Dioxide 28 22 - 29 mmol/L [facility] Anion Gap 13 12 - 20 [facility] Urea Nitrogen (BUN) 19(H) 9 - 16 mg/dL [facility] Creatinine, Serum 0.90 0.5 - 1.4 mg/dL [facility] Creatinine Clr Calc Pharmacy 93.8 [facility] Comment:eGFR (calculated fro m the MDRD study equation) and eCrCl(calculated from the Cockcroft-Gault equation) are based ondifferent parameters and may not yield comparable results.If eCrCl result is absurd, please check patient'sheight/weight. Estimated Glomerular Filt Rate >60 [facility] Comment:Chronic Kidney Disea se: Estimated GFR < 60 mL/min/[id number] Kidney Disease: Estimated GFR < 15 mL/min/1.73m2 Glucose 85 60 - 115 mg/dL [facility] Calcium 9.1 8.4 - 10.2 mg/dL [facility] Bilirubin, Total 0.3 0.0 - 1.0 mg/dL [facility] Aspartate Amino Transferase 31 5 - 37 U/L [facility] Alanine Aminotransferase 24 0 - 40 U/L [facility] Total Protein 7.4 6.5 - 8.0 g/dL [facility] Albumin Level 4.2 3.5 - 5.0 g/dL [facility] Alkaline Phosphatase 83 39 - 117 U/L [facility] 06/01/2024 4:42 PM EDT 06/01/2024 4:56 PM EDT us Generic External Data Provider LAB BLOOD ORDERAB LES Final Result [facility] [address] [place] [phone] * COVID-19 ID NOW ([facility]) (06/01/2024 4:42 PM EDT) IDNOW SERIAL# [id number] [facility] COVID-19 TEST Negative Negative [facility] COVID-19 NOTE See Note [facility] Comment: Results are for the identification of SARS-CoV2 RNA. TheSARS-CoV2 RNA is generally detectable in respiratory samplesduring the acute phase of infection. Positive results areindicative of the presence of SARS-CoV-2 RNA; clinicalcorrelation with patient history and other diagnosticinformation is necessary to determine patient infectionstatus. Positive results do not rule out bacterial infectionor co- infection with other viruses.Testing facilities within the [facility] and [facility] are required to report all positive [...] use by authorized laboratories.Testing performed on the [place] ID NOW utilizing NAAT. 06/01/2024 4:42 PM EDT 06/01/2024 5:00 PM EDT us Generic External Data Provider LAB MOLECULAR MARIANA [employer] ORDERABLES Final Result [facility] [address], [place] [phone] * (ABNORMAL) CBC auto differential (06/01/2024 4:42 PM EDT) White Blood Count 4.7(L) 4.8 - 10.8 X10*3/uL [facility] Red Blood Count 4.48(L) 4.60 - 5.80 X10*6/uL [facility] Hemoglobin 11.6(L) 14.0 - 18.0 g/dl [facility] Hematocrit 36.6(L) 42.0 - 52.0 % [facility] Mean Corpuscular Volume 81.7 80.0 - 98.0 fL [facility] Mean Corpuscular Hemoglobin 25.9(L) 27.0 - 33.0 pg [facility] Mean Corpuscular HGB Conc 31.7 31.0 - 36.0 g/dl [facility] Red Cell Distribution Width 15.1 11.0 - 16.0 % [facility] Platelet Count 309 160 - 400 X10*3/uL [facility] Mean Platelet Volume 8.1(L) 9.4 - 12.4 fL [facility] Neutrophils Percent Auto 45.6 45 - 73 % [facility] Imm Gran Pct Auto 0.2 0.0 - 0.4 % [facility] Lymphocytes Percent Auto 40.9(H) 20 - 40 % [facility] Monocytes Percent Auto 10.6 2 - 11 % [facility] Eosinophils Percent Auto 1.9 0 - 4 % [facility] Basophils Percent Auto 0.8 0 - 2 % [facility] NRBC Pct Auto 0.0 0.0 - 0.2 /100WBC [facility] Neutrophils Absolute Auto 2.2 2.0 - 8.3 x10*3/uL [facility] Imm Gran Abs Auto 0.01 0.00 - 0.03 X10*3/uL [facility] Lymphocytes Absolute Auto 1.9 1.2 - 4.9 X10*3/uL [facility] Monocytes Absolute Auto 0.5 0.1 - 1.2 X10*3/uL [facility] Eosinophils Absolute Auto 0.1 0.0 - 0.4 X10*3/uL [facility] Basophils Absolute Auto 0.0 0.0 - 0.2 X10*3/uL [facility] NRBC Abs Auto 0.000 0.0 - 0.012 X10*3/uL [facility] 06/01/2024 4:42 PM EDT 06/01/2024 4:56 PM EDT us Generic External Data Provider LAB BLOOD ORDERAB LES Final Result [facility] [address] [place] [phone] documented in this encounter Visit Diagnoses Not on filedocumented in this encounter Additional Health Concerns Assessment Noted Time PHQ-9 Depression Total Score: 3 04/23/19 25 11:02 AM EST documented as of this encounter Care Teams Neurology Epilepsy Physician Relationship Specialty Start Date End Date Lara Headley MD [address] [place] [phone] PCP - General Family Medicine 08/31/16 documented as of this encounter
--- OUTSIDE RECORDS SUMMARY | 2024-06-02 06:26 | XMS_ITS | Encounter Summary ---
Author Organization [employer] Address [address] [facility] 7t [place] [address] Care Team Providers Care Surveillance Technician Name Role Phone Lara Headley MD Primary Care Provider + Reason for Visit * Reason Comments Med Refill Encounter Details Date Type Department Care Team ([facility] st Contact Info) Description 12/28/2022 Refill [facility] [address] [place], [place] [phone] Dalia El MD [address] [place] [address] Social History Tobacco Use Types Packs/Day Years [...] Description 06/03/2024 9:00 AM EDT Office Visit [facility] [address] [place] [phone] Christian Arreguin MD [address] [place] [phone] 06/10/2024 9:00 AM EDT Clinical Support [address] [address] Richard Woods RN [address] [place] [phone] 06/11/2024 10:45 AM EDT Office Visit [address] [address] Lara Headley MD [address] [place] [phone] documented as of this encounter Visit Diagnoses Not on filedocumented in this encounter Additional Health Concerns Assessment Noted Time PHQ-9 Depression Total Score: 4 09/04/19 23 12:55 PM EDT documented as of this encounter Care Teams Surveillance Technician Relationship Specialty Start Date End Date Lara Headley MD [address] [place] [address] PCP - General Family Medicine 08/31/16 documented as of this encounter
--- OUTSIDE RECORDS SUMMARY | 2024-06-02 06:26 | XMS_ITS | Encounter Summary ---
Author Organization [employer] Address [address] [facility] [address] [place] [address] Care Team Providers Care Hse Coordinator Name Role Phone Lara Headley MD Primary Care Provider + Reason for Visit * Reason Onset Date Comments Med Refill 05/28/2024 Encounter Details Date Type Department Care Team (Late st Contact Info) Description 05/28/2024 Refill [facility] [address] [place] [address] Chanel Thrasher RN Opioid dependence, uncomplicated (CMS/HCC) [...] the past 12 months, has t he [employer], [employer], oil or water [employer] threatened to shut off services in your [...] Description 06/03/2024 9:00 AM EDT Office Visit [address] [address] Christian Arreguin MD [address] [place] [phone] 06/10/2024 9:00 AM EDT Clinical Support [address] [address] Richard Woods, EMILY [address] [place] [phone] 06/11/2024 10:45 AM EDT Office Visit [address] [address] Lara Headley MD [address] [place] [phone] documented as of this encounter Goals Goal [...] documented as of this encounter Care Teams Hse Coordinator Relationship Specialty Start Date End Date Lara Headley MD [address] [place] [phone] PCP - General Family Medicine 08/31/16 documented as of this encounter
--- NOTE | 2024-06-02 07:24 | PC.NURSE ---
This RN resumed care of patient when he was changed into this RN section. He was upset about being moved, stating he was already moved from this area because he didn't want to be here. This RN provided emotional support, breakfast at bedside, pt denies SI/HI stating he just has mental health problems (but will not talk with this RN). pt wanting recovery stating he is with drawing from Fent/Crack cocaine, he is smoking both. Pt reporting he was on Suboxone but has been selling it as he states it is interacting with his Fent. Pt currently giving staff a urine sample.
[2024-06-02 08:23] LABS: Amphetamine Screen Urine Not Detected (Not Detect); Barbiturates, Urine Not Detected (Not Detect); Benzodiazepines Screen Urine Not Detected (Not Detect); Buprenorphine Scr Not Detected (Not Detect); Cannabinoid Screen Urine Not Detected (Not Detect); Cocaine Screen Urine POSITIVE (Not Detect); Fentanyl, urine POSITIVE (Not Detect); Methadone Screen, Urine Not Detected (Not Detect); Opiate Screen Urine Not Detected (Not Detect); Oxycodone Screen Urine Not Detected (Not Detect); Phencyclidine Screen Urine Not Detected (Not Detect)
[2024-06-02 08:43] LABS: MANUAL DIFF FLAG NO
[2024-06-02 08:44] LABS: Basophils Percent Auto 0.7 % (0-2); Eosinophils Absolute Auto 0.1 X10*3/uL (0.0-0.4); Eosinophils Percent Auto 2.5 % (0-4); Hematocrit 35.5 % (42.0-52.0); Hemoglobin 11.7 g/dl (14.0-18.0); Imm Gran Abs Auto 0.01 X10*3/uL (0.00-0.03); Imm Gran Pct Auto 0.2 % (0.0-0.4); Lymphocytes Absolute Auto 1.7 X10*3/uL (1.2-4.9); Mean Corpuscular Hemoglobin 26.7 pg (27.0-33.0); Mean Corpuscular Volume 81.1 fL (80.0-98.0); Mean Platelet Volume 7.9 fL (9.4-12.4); Monocytes Absolute Auto 0.6 X10*3/uL (0.1-1.2); Monocytes Percent Auto 9.7 % (2-11); Neutrophils Absolute Auto 3.3 x10*3/uL (2.0-8.3); Neutrophils Percent Auto 57.9 % (45-73); Platelet Count 272 X10*3/uL (160-400); Red Blood Count 4.38 X10*6/uL (4.60-5.80); Red Cell Distribution Width 14.9 % (11.0-16.0); White Blood Count 5.7 X10*3/uL (4.8-10.8)
[2024-06-02 09:00] LABS: Alanine Aminotransferase 26 U/L (0-40); Alkaline Phosphatase 95 U/L (39-117); Anion Gap 12 (12-20); Aspartate Amino Transferase 34 U/L (5-37); Bilirubin Total 0.2 mg/dL (0.0-1.0); Blood Urea Nitrogen 24 mg/dL (9-16); Calcium 9.3 mg/dL (8.4-10.2); Carbon Dioxide 30 mmol/L (22-29); Chloride 102 mmol/L (96-108); Creatinine Clr Calc Pharmacy 88.8; Estimated Glomerular Filt Rate > 60; Glucose Random 83 mg/dL (60-115); Sodium 140 mmol/L (135-145); Total Protein 7.2 g/dL (6.5-8.0)
[2024-06-02 09:07] LABS: Acetaminophen LAB < 3 mcg/mL (<30); Salicylate < 5.0 mg/dL (15-30)
--- NOTE | 2024-06-02 09:20 | PC.NURSE ---
Pt seen by Recovery, after the meeting he then stated he just wanted to be DCd and leave. Pt belongings collected from the [place] [facility] and given to patient, pt refusing DC paperwork at this time along with vitals.
[2024-06-02 09:24] VITALS: BP 0/0; PULSE 0; RESP 0; TEMP -17.7; TEMP 0; O2SAT 0
== END 2024-06-02 09:26 | disposition home or self-care (01) ==
PROVIDERS: Emergency Provider Emergency Medicine
DX: F19.10 Other psychoactive substance abuse, uncomplicated (principal); F41.9 Anxiety disorder, unspecified; F14.10 Cocaine abuse, uncomplicated; F25.1 Schizoaffective disorder, depressive type; F43.10 Post-traumatic stress disorder, unspecified; Z79.899 Other long term (current) drug therapy
CPT/HCPCS: 36415; 80053; 80143; 80179; 80307; 85025; 93005; 99284; S9485

== ENCOUNTER → 2024-06-02 07:42 | Outpatient (BNV) | payer MEDICAID, SELFPAY | PROVIDERS: Emergency Provider Emergency Medicine; Visit Provider Internal Medicine Cardiovascular Disease | DX: I45.10 Unspecified right bundle-branch block (principal) | CPT/HCPCS: 93010 ==

== ENCOUNTER 2024-06-03 13:54 | Emergency (ER) | payer MEDICAID, SELFPAY ==
[2024-06-03 13:56] VITALS: BP 145/98; PULSE 105; RESP 18; TEMP 36.6; O2SAT 98; BMI 32.6
--- NOTE | 2024-06-03 13:58 | ED.GENADULT ---
HPI - General Adult General Chief complaint: Psychiatric Symptoms Stated complaint: crisis Time Seen by Provider: 06/03/24 14:16 Source: patient Mode of arrival: ambulatory Limitations: no limitations History of Present Illness ED Provider: Trang Canales PA-C HPI narrative: Patient is a 48 year old assigned male at with a history of opiate use disorder, PTSD, and cocaine use disorder presenting to the emergency department today with suicidal ideation. Patient states that he is feeling suicidal with no plan. Patient states that he did use fentanyl a few hours prior to arrival in the department. Patient denies any dizziness, lightheadedness, abdominal pain, nausea, vomiting, fever, chills, blurry vision, double vision, loss of vision, chest pain, difficulty breathing, shortness of breath, back pain, night sweats, pain with urination, increased urinary frequency, increased urinary urgency, blood in his urine or stool, syncope or a near syncopal episode, recent trauma or falls, bowel incontinence, bladder incontinence, or any other complaints at this time. Relieving factors: none Exacerbating factors: none Associated symptoms: denies other symptoms Treatments prior to arrival: none Related Data Home Medications ?Medication ?Instructions ?Recorded ?Confirmed clonazepam 0.5 mg tablet 0.5 mg PO DAILY PRN anxiety attack 06/02/24 06/02/24 quetiapine 100 mg tablet 100 mg PO BEDTIME PRN insomnia 06/02/24 06/03/24 hydroxyzine HCl 25 mg tablet 25 mg PO Q6H PRN mild pain 06/03/24 06/03/24 Previous Rx's ?Medication ?Instructions ?Recorded clonidine HCl 0.1 mg tablet See Rx Instructions .Route 05/04/24 .COMPLEX 30 days #90 tabs Allergies Allergy/AdvReac Type Severity Reaction Status Date / Time No Known Allergies Allergy Verified 06/03/24 13:59 [No Known Allergies*] Review of Systems Constitutional: Constitutional: Reports no additional constitutional complaints, Denies chills, Denies fever(s) and Denies night sweats Eyes: Eyes: Reports no additional eye complaints, Denies blurry vision, Denies change in vision, Denies diplopia, Denies eye discharge, Denies loss of vision and Denies eye pain ENT: Denies dizziness Cardiovascular: Cardiovascular: Reports no additional cardiovascular complaints, Denies chest pain, Denies lightheadedness, Denies Loss of Consciousness and Denies dyspnea Respiratory: Respiratory: Reports no additional respiratory complaints and Denies dyspnea Gastrointestinal: Gastrointestinal: Reports no additional gastrointestinal complaints, Denies abdominal pain, Denies melena, Denies hematochezia, Denies change in bowel habits and Denies change in stool character Genitourinary: Genitourinary: Reports no additional male genitourinary complaints, Denies hematuria, Denies oliguria, Denies difficulty urinating, Denies dysuria, Denies urinary frequency, Denies urinary hesitancy, Denies urinary incontinence and Denies urinary urgency Musculoskeletal: Musculoskeletal: Reports no additional musculoskeletal complaints, Denies numbness and Denies tingling Neurologic: Denies dizziness, Denies loss of vision, Denies numbness and Denies tingling Psychiatric: Psychiatric: Denies homicidal ideation and Reports suicidal ideation Endocrine: Endocrine: Reports no additional endocrine complaints Hematologic/Lymphatic: Hematologic/Lymphatic: Reports no additional hematologic/lymphatic complaints Allergic/Immunologic: Allergic/Immunologic: Reports no additional allergic/immunologic complaints [facility] Past Medical History Attestation statement: The following information was validated with the patient. Source: old records reviewed and nursing notes reviewed Medical History Tachycardia Elevated troponin Hypermagnesemia KATHYA (acute kidney injury) Schizoaffective disorder, depressive type Suicidal ideation Polysubstance abuse Opioid use disorder Polysubstance abuse NSTEMI (non-ST elevated myocardial infarction) PTSD (post-traumatic stress disorder) Cocaine use disorder Polysubstance use disorder Social History Social History Household Members: None Household Members Other:: dog, Melvin Housing: Apartment Do you presently have visiting nurse or other home services: No Unable to assess alcohol history related to: Unknown Alcohol intake: never Patient Tobacco Use Status: Never used Tobacco Smoked in Last 30 Days: No e-Cigarette/Vaping Use: Never Used Second Hand Smoke Exposure: No Use of substances other than those prescribed or required for medical reasons: Yes Substance Use Type: IV Drugs and Opiates Substance Use Frequency: Chronic Longstanding Last Used Substance: Just Prior to Admission Advance Directives: No Advance Directives Information Provided: Yes Do you have a plan to hurt others: No Plan service: No Sexual orientation: Straight/Heterosexual Physical Exam ED Vital Signs: Vital Signs - 24 hr 06/03/24 13:56 06/03/24 14:11 06/03/24 17:34 Temperature 97.9 F 97.7 F Pulse Rate 105 H 75 Respiratory Rate 18 18 18 Blood Pressure 145/98 H 164/93 H Pulse Oximetry 98 100 Oxygen Delivery Method Room Air Room Air 06/03/24 17:53 06/04/24 06:23 06/04/24 08:47 Temperature 98.2 F Pulse Rate 72 Respiratory Rate 17 Blood Pressure 164/93 H 157/89 H 154/84 H Pulse Oximetry 100 Oxygen Delivery Method Room Air 06/04/24 08:49 Temperature 98.7 F Pulse Rate 95 Respiratory Rate 18 Blood Pressure 154/84 H Pulse Oximetry 100 Oxygen Delivery Method Room Air BMI result Body Mass Index 32.6 Const General: cooperative, no acute distress, alert and awake Nutritional Appearance: well nourished Orientation/consciousness: patient oriented x3 Limitations: no limitations HENMT Head: Yes normal to inspection and Yes atraumatic Ears: hearing grossly normal bilaterally and external ears normal General nose exam: Normal external nose present, no nasal discharge noted and no epistaxis Face and sinus: Yes normal facial exam, No abrasion and No laceration Mouth: Normal oral and palatal mucosa present, no drooling and no muffled voice Eyes General: appearance normal, both eyes and all related structures Periorbital: periorbital findings normal Eyelids: Yes eyelids normal Conjunctivae: conjunctivae normal Pupils: Equal, round and reactive pupils present EOM: EOMs intact bilaterally Neck Neck: Yes normal visual inspection, Yes full ROM and Yes no lymphadenopathy Chest Chest palpation & inspection: normal inspection of the chest Resp Effort & Inspection: normal respiratory effort and able to speak in complete sentences GI Inspection: Yes normal to inspection Neuro General: patient oriented x3, moves all extremities and CN's II-XI intact bilaterally Cranial nerves: Yes Equal, round and reactive pupils present Cognition (Neuro): normal cognition Extrem General: Yes normal to inspection, Yes full ROM and Yes capillary refill normal Psych Appearance: grossly normal Mental Status: mental status grossly normal Thought content: Suicidality present Course Course Course Narrative: RME, this is a rapid medical exam performed by Mike Perea please refer to primary provider for complete H&P- 48-year-old male presents for evaluation of suicidal ideation. He denies any plan for SI. He reports substance abuse with fentanyl most recently a few hours prior to arrival. Plan for medical clearance and care team evaluation. Time: 10:36 Date: 06/04/24 Provider: Boom Calabrese MD Patient in physician observation for psychiatric evaluation.? No acute events reported overnight. No current complaints. VS stable.? Discussed with CARE Team who clears patient for discharge and patient does not meet section 12 criteria. Respite declined due to patient's history of previously demanding discharge on his own terms. Medications Administered Generic Name Dose Route Start Last Admin Trade Name Freq PRN Reason Stop Dose Admin Clonidine HCl 0.1 mg 06/03/24 21:00 06/04/24 08:47 Clonidine Hcl 0.1 Mg Tablet PO 0.1 mg BID SHARIF Administration Protocol Clonidine HCl 0.1 mg 06/03/24 17:40 06/03/24 17:53 Clonidine Hcl 0.1 Mg Tablet PO 0.1 mg DAILY PRN Administration Anxiety Protocol Medical Decision Making Medical Decision Making MDM Narrative: Patient is a 48 year old assigned male at with a history of opiate use disorder, PTSD, and cocaine use disorder presenting to the emergency department today with suicidal ideation. Patient's physical exam was as noted in the physical exam portion of this note. Patient's blood work was unremarkable. Patient's urine showed no acute process. Patient's EKG was unremarkable. I explained my physical exam findings as well as all test results to the patient. I answered all questions asked by the patient. Patient requested to be started on Methadone however, I consulted with the addiction team, who stated the patient does not need to be started on Methadone and the patient declined any rehab facilities. Patient was evaluated by the CARE team who recommended respite bed search however, they are not placing him on a section 12 and he may leave at any time he so chooses or if he were to escalate / be aggressive towards staff he can be discharged. Patient placed in observation pending respite bed search. Differential Diagnosis Differential Diagnoses: The differential diagnosis associated with the presentation includes SI Polysubstance abuse / use Admission/Observation Consideration of admission/observation: Escalation of care including admission/observation considered Patient would have been admitted to the hospital had his work up had any findings where hospital admission was appropriate and his clinical presentation warranted hospital admission. Consult Healthcare Provider Management of the patient was discussed with: Behavioral Health Provider (spoke with the CARE team as noted in the MDM Rationale portion of this note.) Lab Data [facility] Lab Attestation statement: I reviewed the patient's lab results. My interpretation of these results are in the MDM Rationale portion of this note. 06/03/24 14:25 06/03/24 14:25 Labs: Lab Results 06/03/24 06/03/24 Range/Units 14:25 15:48 WBC 4.3 L (4.8-10.8) X10*3/uL RBC 4.59 L (4.60-5.80) X10*6/uL Hgb 12.2 L (14.0-18.0) g/dl Hct 36.9 L (42.0-52.0) % MCV 80.4 (80.0-98.0) fL MCH 26.6 L (27.0-33.0) pg MCHC 33.1 (31.0-36.0) g/dl RDW 15.0 (11.0-16.0) % Plt Count 321 (160-400) X10*3/uL MPV 8.2 L (9.4-12.4) fL Immature Gran % (Auto) 0.2 (0.0-0.4) % Neut % (Auto) 57.2 (45-73) % Lymph % (Auto) 29.6 (20-40) % [place] % (Auto) 10.5 (2-11) % Eos % (Auto) 1.6 (0-4) % Baso % (Auto) 0.9 (0-2) % Lymph # (Auto) 1.3 (1.2-4.9) X10*3/uL [place] # (Auto) 0.5 (0.1-1.2) X10*3/uL Eos # (Auto) 0.1 (0.0-0.4) X10*3/uL Baso # (Auto) 0.0 (0.0-0.2) X10*3/uL Abs Immat Gran (auto) 0.01 (0.00-0.03) X10*3/uL Absolute Neuts (auto) 2.5 (2.0-8.3) x10*3/uL Absolute Nucleated RBC 0.000 (0.0-0.012) X10*3/uL Nucleated RBC % (auto) 0.0 (0.0-0.2) /100WBC Sodium 140 (135-145) mmol/L Potassium 4.0 (3.3-5.1) mmol/L Chloride 104 (96-108) mmol/L Carbon Dioxide 29 (22-29) mmol/L Anion Gap 11 L (12-20) BUN 27 H (9-16) mg/dL Creatinine 0.91 (0.5-1.4) mg/dL Estim Creat Clear Calc 93.7 Estimated GFR > 60 Random Glucose 115 (60-115) mg/dL Calcium 9.2 (8.4-10.2) mg/dL Total Bilirubin 0.3 (0.0-1.0) mg/dL AST 39 H (5-37) U/L ALT 24 (0-40) U/L Alkaline Phosphatase 87 (39-117) U/L Total Protein 7.6 (6.5-8.0) g/dL Albumin 4.2 (3.5-5.0) g/dL Urine Color Yellow Urine Appearance Clear Urine pH 7.0 (5.0-9.0) Ur Specific [place] 1.020 (1.005-1.025) Urine Protein Trace (Neg-Trace) mg/dL Urine Glucose (UA) Negative (Negative) mg/dL Urine Ketones Negative (Negative) mg/dL Urine Blood Negative (Negative) Urine Nitrite Negative (Negative) Ur Leukocyte Esterase Negative (Negative) Salicylates < 5.0 L (15-30) mg/dL Urine Opiates Screen POSITIVE H (Not Detect) Ur Buprenorphine Scrn Not Detected (Not Detect) ng/mL Ur Oxycodone Screen Not Detected (Not Detect) ng/mL Urine Methadone Screen Not Detected (Not Detect) ng/mL Urine Fentanyl Screen POSITIVE H (Not Detect) Acetaminophen < 3 (<30) mcg/mL Ur Barbiturates Screen Not Detected (Not Detect) Ur Phencyclidine Scrn Not Detected (Not Detect) Ur Amphetamines Screen Not Detected (Not Detect) U Benzodiazepines Scrn Not Detected (Not Detect) Urine Cocaine Screen POSITIVE H (Not Detect) U Marijuana (THC) Screen Not Detected (Not Detect) Ethyl Alcohol < 10 mg/dL Independent Interpretation I performed an independent interpretation of an: EKG Interpretation: I independently interpreted this EKG and am in agreement with the below findings: Vent. Rate: 66 BPM Atrial Rate: 66 BPM P-R Int: 160 ms QRS Dur: 108 ms QT Int: 392 ms P-R-T Axes: 59 -2 13 degrees QTcB Int: 410 ms Normal sinus rhythm Minimal voltage criteria for LVH, may be normal variant (R in aVL) When compared with ECG of 02-Jun-2024 07:42, No significant change was found DD/ 1527 Discharge Plan Discharge Clinical Impression: Suicidal ideation, Opiate use Patient Disposition: Home, Self-Care Instructions: Opioid Use Disorder (ED), Suicide Prevention (ED) Additional Instructions: Opiate use disorder You were seen in our Emergency Department today for treatment of opiate use disorder. You may have been dosed with medication for opiate use disorder (MOUD) in the form of suboxone or methadone. You may experience feeling some withdrawal symptoms and this is normal. The? dose in the Emergency Department is a starting dose and meant to be titrated up once you follow up with a clinic. Please do not feel discouraged, it is a process. The nurse has reviewed with you where to follow up and what information to bring with you, to continue treatment. You also may have been given naloxone (narcan) to take home with you. This medication is used to potentially treat opiate overdose. If you decide you want to stop or cut down on how much you?re using, you can call or walk into our outpatient Addiction Treatment office: [facility] (M-F 9am-5p) [address] [place] [address], [address] [phone] You may have been provided with safer injection?items, please take time to take care of YOU and your health. Use new supplies whenever possible to lessen the chances of infections and other illnesses.? ?If you need more supplies, please go [facility],? [address] [place], [place] you can call or text to coordinate delivery of safer supplies. You were also provided a list of several treatment providers in the area.? If you experience any worsening symptoms you cannot control please return to the ED or call 911. Please follow up at your next appointment. Things to look out for are fevers, chest pain, shortness of breath, severe pain, dizziness, fainting or any other concerns. You were seen in our Emergency Department today for treatment of a behavioral health issue. It is important after your visit that you follow up with either your behavioral health provider or a primary care doctor within 7 days.? If you have trouble finding a therapist you can reach out to [place] [phone] The National Suicide and Crisis Lifeline can be reached 7 days a week 24 hours a day.? Call 988 to speak with someone.? Return for any worsening symptoms or concerns such as thoughts of self harm or harm to others. Please call 911 if you feel your mental health is worsening.? Prescriptions: No Action clonazepam 0.5 mg tablet 0.5 mg PO DAILY PRN (Reason: anxiety attack) quetiapine 100 mg tablet 100 mg PO BEDTIME PRN (Reason: insomnia) clonidine HCl 0.1 mg tablet See Rx Instructions .ROUTE .COMPLEX 30 Days Qty: 90 0RF Rx Instructions: take 1 tab in the morning and 1 at bedtime; may take 1 tab daily as needed for anxiety hydroxyzine HCl 25 mg tablet 25 mg PO Q6H PRN (Reason: mild pain) Interventions: [place]-Suicide Risk Severity Scale Last Done: 06/03/24 14:11 Print Language: Greek
[2024-06-03 14:11] VITALS: RESP 18
[2024-06-03 14:31] LABS: MANUAL DIFF FLAG NO
[2024-06-03 14:41] LABS: Basophils Percent Auto 0.9 % (0-2); Eosinophils Absolute Auto 0.1 X10*3/uL (0.0-0.4); Eosinophils Percent Auto 1.6 % (0-4); Hematocrit 36.9 % (42.0-52.0); Hemoglobin 12.2 g/dl (14.0-18.0); Imm Gran Abs Auto 0.01 X10*3/uL (0.00-0.03); Imm Gran Pct Auto 0.2 % (0.0-0.4); Lymphocytes Absolute Auto 1.3 X10*3/uL (1.2-4.9); Lymphocytes Percent Auto 29.6 % (20-40); Mean Corpuscular HGB Conc 33.1 g/dl (31.0-36.0); Mean Corpuscular Hemoglobin 26.6 pg (27.0-33.0); Mean Corpuscular Volume 80.4 fL (80.0-98.0); Mean Platelet Volume 8.2 fL (9.4-12.4); Monocytes Absolute Auto 0.5 X10*3/uL (0.1-1.2); Monocytes Percent Auto 10.5 % (2-11); Neutrophils Absolute Auto 2.5 x10*3/uL (2.0-8.3); Neutrophils Percent Auto 57.2 % (45-73); Platelet Count 321 X10*3/uL (160-400); Red Blood Count 4.59 X10*6/uL (4.60-5.80); White Blood Count 4.3 X10*3/uL (4.8-10.8)
--- NOTE | 2024-06-03 14:43 | ECG_ITS ---
Test Reason : medical clearance Blood Pressure : */* mmHG Vent. Rate : 66 BPM Atrial Rate : 66 BPM P-R Int : 160 ms QRS Dur : 108 ms QT Int : 392 ms P-R-T Axes : 59 -2 13 degrees QTcB Int : 410 ms Normal sinus rhythm Minimal voltage criteria for LVH, may be normal variant ( R in aVL ) Borderline ECG When compared with ECG of 02-Jun-2024 07:42, No significant change was found Referred By: rTang Canales Electronically Signed By: Lance Lopez
[2024-06-03 14:50] LABS: Acetaminophen LAB < 3 mcg/mL (<30); Alanine Aminotransferase 24 U/L (0-40); Albumin Level 4.2 g/dL (3.5-5.0); Alkaline Phosphatase 87 U/L (39-117); Anion Gap 11 (12-20); Aspartate Amino Transferase 39 U/L (5-37); Bilirubin Total 0.3 mg/dL (0.0-1.0); Blood Urea Nitrogen 27 mg/dL (9-16); Calcium 9.2 mg/dL (8.4-10.2); Carbon Dioxide 29 mmol/L (22-29); Chloride 104 mmol/L (96-108); Creatinine Clr Calc Pharmacy 93.7; Estimated Glomerular Filt Rate > 60; Ethanol < 10 mg/dL; Glucose Random 115 mg/dL (60-115); Salicylate < 5.0 mg/dL (15-30); Sodium 140 mmol/L (135-145); Total Protein 7.6 g/dL (6.5-8.0)
[2024-06-03 15:55] LABS: Appearance Urine Clear; Color Urine Yellow; Glucose Urine UA Negative (Negative); Leukocyte Esterase Urine Negative (Negative); Nitrite Urine Negative (Negative); Urine Blood Negative (Negative); Urine Ketones Negative (Negative); Urine Protein Trace mg/dL (Neg-Trace)
--- NOTE | 2024-06-03 16:04 | MHC.RECOVRN ---
Met with pt in [facility] after consult placed to Addiction Medicine for pt interested in methadone for fentanyl detox. Pt familiar with t/w from previous consults, most recently yesterday. Pt awake, alert, easily engages in conversation. Pt is not currently experiencing acute withdrawal. Appears comfortable, denies withdrawal symptoms. Pt is not appropriate to receive methadone at this time. Educated pt on methadone and ATS. Encouraged pt to present to [facility] if he is interested in methadone. Encouraged pt to present to [facility] ATS if he is interested in ATS. Pt aware he will not be receiving methadone at this time and is understanding. Plan for CARE Team eval for SI. Pt denies other questions or concerns for t/w. Discussed with RN, ED provider, and Violeta Polanco APRN.
--- OUTSIDE RECORDS SUMMARY | 2024-06-03 16:20 | XMS_ITS | Encounter Summary ---
Author Organization [employer] Address [address] [facility] [address] [place] [address] Care Team Providers Care Paint Grinder Name Role Phone Lara Headley MD Primary Care Provider + Encounter Details Date Type Department Care Team (Latest Contact Info) Description 06/03/2024 Travel Social History Tobacco Use Types Packs/Day [...] Care Team (Late st Contact Info) Description 06/10/2024 9:00 AM EDT Clinical Support [address] [id number] Richard Woods RN [address] [place] [phone] 06/11/2024 10:45 AM EDT Office Visit [address] [address] Lara Headley MD [address] [place] [phone] documented as of this encounter Goals Goal [...] documented as of this encounter Care Teams Paint Grinder Relationship Specialty Start Date End Date Lara Headley MD [address] [place] [phone] PCP - General Family Medicine 08/31/16 documented as of this encounter
--- OUTSIDE RECORDS SUMMARY | 2024-06-03 16:20 | XMS_ITS | Encounter Summary ---
Author Organization [employer] Address [address] [facility] [address] [place] [address] Care Team Providers Care Professor In Family Studies Name Role Phone Lara Headley MD Primary Care Provider + Reason for Visit * Reason Comments Med Refill Encounter Details Date Type Department Care Team ([facility] st Contact Info) Description 12/28/2022 Refill [facility] [address], [place] [phone] Dalia El MD [address] [place] [address] Social History Tobacco Use Types Packs/Day Years [...] Description 06/10/2024 9:00 AM EDT Clinical Support [facility] [address] [place] [address] Richard Woods RN [address] [place] [address] 06/11/2024 10:45 AM EDT Office Visit [facility] [address] [place] [phone] Lara Headley MD [address] [place] [phone] documented as of this encounter Visit Diagnoses Not on filedocumented in this encounter Additional Health Concerns Assessment Noted Time PHQ-9 Depression Total Score: 4 09/04/19 23 12:55 PM EDT documented as of this encounter Care Teams Professor In Family Studies Relationship Specialty Start Date End Date Lara Headley MD [address] [place] [phone] PCP - General Family Medicine 08/31/16 documented as of this encounter
--- OUTSIDE RECORDS SUMMARY | 2024-06-03 16:21 | XMS_ITS ---
Author Organization [employer] Address [address] [facility] 7[address] [place] [address] Care Team Providers Care Bowling Ball Molder Name Role Phone Lara Headley MD Primary Care Provider + CM Complex Status:Identified (Enrolling) Start date:05/25/2024 Enrollment reason:ADT Feed Overview ED- Pt went to [facility] on 05/22/24. Case Team Name Relationship Phone Dalia Ruby RN Registered Nurse(Responsible S taff) Continued Care and Services Coordination
--- OUTSIDE RECORDS SUMMARY | 2024-06-03 16:21 | XMS_ITS | Clinical Summary ---
Author Organization [employer] Address [address] [facility] 7[address] [place] [address] Care Team Providers Care Agency Sales Development Associate Name Role Phone Lara Headley MD [...] (Tylenol) 500 MG tabletIndication s:Dental caries,Fractured dental judaism without loss of material Take 1 tablet [...] AREA(S) TWICE DAILY NEEDED FOR DRY SKIN Active QUEtiapine (SEROquel) 100 MG tablet Take 1 tablet by mouth if needed at bedtime. Active cloNIDine (Catapres) 0.1 MG tablet Take [...] cleanup (will not trigger notification to Pharmacy)) clonazePAM [...] of anxiety and addiction, reach out to it disaster recovery manager. Continue to FU with [facility] program. FU with me in 3-4 weeks. Moderate benzodiazepine use disorder 03/05/2024 Assessment & Plan (03/05/2024 11:22 AM EST): Chronically using Klonopin BID off the street, advised risk of overdose and being tainted with other drugs. Fractured dental judaism without loss of mat erial 02/21/2024 KATHYA [...] 11:23 AM EST): Most likely related to alf uncontrolled HTN and heroin use. Advised to [...] of MH treatment, reach out to a it disaster recovery manager (he doesn't have one, he doesn't want [...] EDT): Unclear if he;'s taking Wellbutrin, last chicken picker was on 06/24 I called to fu with . I gave him [facility] info to reach out for an appt. He feels safe at home now and is able to reach out for safety. FU at next appt, needs to bring med bottles. Assessment & Plan (04/26/2023 3:25 PM EST): Pt probably has his anxiety exacerbated by methadone taper Counseled to discuss with it disaster recovery manager regarding holding off on methadone taper Start Wellbutrin 150 mg and fu at next visit Continue close fu with therapist Saúl [place], I will refer to to help him coordinate referral to a psych Rx in the vermin exterminator. Assessment & Plan (12/25/2022 9:50 AM EDT): [...] off methadone. Advised to reach out to it disaster recovery manager, discussed with him re early signs of [...] out for safety, and to work with it disaster recovery manager - f/u in 3 months Assessment & Plan (04/26/2023 9:29 AM EST): Cutting down on methadone, is probably having increased anxiety due to this/?withdrawal Sx Counseled to slow down on taper and fu w it disaster recovery manager We discussed importance of not using recreational substances Assessment & Plan (10/03/2022 12:04 PM EDT): Currently on methadone 30mg continues to live in [facility] where he has it disaster recovery manager and support groups Assessment & Plan (09/03/2022 1:34 PM EDT): Currently on methadone 30mg in [facility] Methadone program Continue residential recovery program in [facility] Counseled to avoid alcohol, drugs, currently sober FU PRN Encounters * This document contains information received from the source organization and may not represent a complete record from that organization. Date Type Department Care Team Description 06/03/2024 9:00 AM EDT Office Visit [address] [phone] Christian Arreguin MD Opioid dependence, uncomplicated (CMS/HCC) (Primary Dx) 06/03/2024 Orders Only GENERIC EXTERNAL DATA DEPARTMENT Provider, Generic External Data 06/03/2024 Travel 06/02/2024 Patient Outreach [address] [address] Lara Headley MD Transition Of Care (Tcm) 06/01/2024 Orders Only GENERIC EXTERNAL DATA DEPARTMENT Provider, Generic External Data 05/28/[address] [address] Chanel Thrasher, EMILY Opioid dependence, uncomplicated (CMS/HCC) 05/27/2024 9:00 AM EDT Office Visit [address] [address] Christian Arreguin MD Opioid type dependence, continuous (CMS/HCC) (Primary Dx) 05/27/2024 Refill [facility] MEDICINE [address] [place] [address] Chanel Thrasher RN 05/27/2024 Travel 05/25/2024 Patient Outreach [address] [address] Lara Headley MD Transition Of Care (Tcm) (HDF scheduled) 05/25/2024 Patient Outreach [facility] [address] [place] [address] Lara Headley MD 05/25/2024 Patient Outreach [address] [address] Lara Headley MD 05/22/2024 Orders Only GENERIC EXTERNAL DATA DEPARTMENT Provider, Generic External Data 05/21/2024 Patient Outreach [address] [address] Armand Dykes Recovery Supports 05/21/[address] [address] Lara Headley MD No Show 05/20/2024 9:00 AM EDT Office Visit [address] [address] Christian Arreguin MD Opioid dependence, uncomplicated (CMS/HCC) (Primary Dx) 05/20/2024 Refill [facility] MEDICINE [address] [place] [address] Chanel Thrasher RN Opioid dependence, uncomplicated (CMS/HCC) 05/20/2024 Travel 05/18/2024 Patient Outreach [address] [address] Jack Tavares Recovery Supports 05/18/[address] [address] Lara Headley MD No Show 05/15/2024 Refill [facility] MEDICINE [address] [place] [address] Chanel Thrasher RN Opioid dependence, uncomplicated (CMS/HCC) 05/15/2024 Patient Outreach [address] [address] Lara Headley MD Care Coordination (Outreach) 05/14/2024 Patient Outreach [address] [address] Evaristo Canchola Recovery Supports 05/13/2024 9:00 AM EDT Clinical Support [address] [address] Chanel Thrasher RN Opioid dependence, uncomplicated ([facility]/HCC) (Primary Dx) 05/13/2024 Travel 05/12/2024 Patient Outreach [address] [address] Evaristo Canchola Recovery Supports 05/12/2024 Patient Outreach [address] [address] Jack Tavares Recovery Supports 05/12/2024 Travel 05/11/2024 Patient Outreach [address] [address] Jack Tavares Recovery Supports 05/11/2024 Refill [facility] MEDICINE [address] [place] [address] Chanel Thrasher RN Opioid dependence, uncomplicated (CMS/HCC) 05/08/2024 Patient Outreach [address] [address] Lara Headley MD Care Coordination (CHW outreach for SDOH-patient declined to participate ) 05/08/2024 Patient Outreach [address] [address] Lara Headley MD Transition Of Care (Tcm) (HDF- scheduled , SDOH is positive tobacco screening is negative) 05/08/2024 Population Health Risk Score [facility] () Department [address] [place] [phone] Provider, Population Health Generic 05/08/2024 Patient Outreach [facility] [address] [place] [address] Lara Headley MD Transition Of Care (Tcm) 05/08/2024 Patient Outreach [facility] [address], [place] [phone] Lara Headley MD Care Coordination (Outreach) 05/07/2024 2:30 PM EDT Office Visit [address] [address] Dalia El MD Opioid dependence, uncomplicated (CMS/HCC) (Primary Dx) 05/07/2024 Patient Outreach [address] [address] Jack Tavares Recovery Supports 05/07/2024 Patient Outreach [address] [address] Evaristo Canchola Recovery Supports 05/07/2024 Travel 05/06/2024 9:00 AM EDT Office Visit [address] [address] Christian Arreguin MD Opioid dependence, uncomplicated (CMS/HCC) (Primary Dx) 05/06/2024 Travel 05/05/2024 Patient Outreach [address] [address] Evaristo Canchola Recovery Supports 05/05/[address] [address] Dalia El MD Opioid dependence, uncomplicated (CMS/HCC) 05/04/2024 1:00 PM EDT Clinical Support [facility]INE [address] [place] [address] Richard Woods RN Opioid dependence, uncomplicated (CMS/HCC) (Primary Dx) 05/04/2024 Patient Outreach [facility] [address] [place] [address] Lara Headley MD Care Coordination 05/04/2024 Patient Outreach [facility] [address] [place] [address] Evaristo Canchola Recovery Supports 05/04/2024 Travel 05/04/2024 Refill [facility] MED[facility]INE [address] [place] [address] Richard Woods RN Opioid dependence, uncomplicated (CMS/HCC) 04/30/[address] [address] Lara Headley MD No Show 04/29/2024 Patient Outreach [facility] [address], [place] [phone] Lara Headley MD Care Coordination (Outreach) 04/28/[address] [address] Lara Headley MD Chart prep 04/27/2024 Orders Only GENERIC EXTERNAL DATA DEPARTMENT Provider, Generic External Data 04/26/2024 Orders Only GENERIC EXTERNAL DATA DEPARTMENT Provider, Generic External Data 04/24/2024 Patient Outreach [facility] [address] [place] [address] Lara Headley MD Transition Of Care (Tcm) 04/23/2024 2:45 PM EST Office Visit [address] [phone] Dalia El MD Opioid dependence, uncomplicated (CMS/HCC) (Primary Dx); Schizoaffective disorder, depressive type (CMS/HCC) 04/23/2024 Telephone [facility] [address] [place] [address] [phone] Lara Headley MD 04/23/2024 Refill [facility] [address] [facility] [place] [address] Dalia El MD Opioid dependence, uncomplicated (CMS/HCC) 04/23/2024 Travel 04/23/2024 Patient Outreach [facility] [address] [facility] [place] [address] Sharif Rider Recovery Supports 04/20/2024 Patient Outreach [address] [address] Jack Tavares Recovery Supports 04/17/2024 Patient Outreach [address] [address] Sharif Rider Recovery Supports 04/16/2024 Patient Outreach [facility] [address] [place] [address] Lara Headley MD Care Coordination (Outreach/) 04/16/2024 Travel 04/06/2024 Patient Outreach [address] [address] Lara Headley MD Transition Of Care (Tcm) 04/05/2024 Orders Only GENERIC EXTERNAL DATA DEPARTMENT Provider, Generic External Data 04/02/2024 2:30 PM EST Office Visit [facility] [address] Dalia El MD Opioid type dependence, continuous (CMS/[facility]) (Primary Dx) 04/02/2024 Refill [facility] [address] Richard Woods RN Opioid dependence, uncomplicated (CMS/HCC) 04/02/2024 Patient Outreach [address] [address] Sharif Rider Recovery Supports 04/02/2024 Travel 04/01/[address] [address] Richard Woods RN 03/30/2024 Patient Outreach [address] [address] Sharif Rider Recovery Supports 03/30/[address] [address] Lara Headley MD 03/30/2024 Refill [facility] [address] [facility] [place] [address] Richard Woods RN Opioid dependence, uncomplicated (CMS/HCC) 03/27/2024 11:30 AM EST Clinical Support [facility] [address] [facility] [place] [address] Richard Woods RN Opioid dependence, uncomplicated (CMS/HCC) (Primary Dx) 03/27/2024 Travel 03/26/2024 Patient Outreach [facility] [address] [place] [address] Lara Headley MD Care Coordination (Outreach) 03/23/2024 Refill [facility] [address] [place] [address] Richard Woods RN Opioid dependence, uncomplicated (CMS/HCC) 03/23/2024 Orders Only GENERIC EXTERNAL DATA DEPARTMENT Provider, Generic External Data 03/22/2024 Orders Only GENERIC EXTERNAL DATA DEPARTMENT Provider, Generic External Data 03/20/2024 9:50 AM EST Clinical Support [facility] [address] [place] [address] Richard Woods RN Opioid dependence, uncomplicated (CMS/HCC) (Primary Dx) 03/20/2024 Patient Outreach [facility] [address] [place] [address] Sharif Rider Recovery Supports 03/20/2024 Travel 03/19/2024 Patient Outreach [facility] [address] [place] [address] Lara Headley MD Care Coordination (Outreach) 03/17/2024 Refill [facility] [address] [place] [address] Richard Woods RN Opioid dependence, uncomplicated (CMS/HCC) 03/12/2024 1:45 PM EST Office Visit [facility] [address] [place] [address] Dalia El MD Opioid dependence, uncomplicated (CMS/HCC) (Primary Dx); Generalized anxiety disorder 03/12/2024 Refill [facility] [address] [place] [address] Richard Woods RN Opioid dependence, uncomplicated (CMS/HCC) 03/12/2024 Refill [facility] [address] [place] [address] Richard Woods RN Opioid dependence, uncomplicated (CMS/HCC) 03/12/2024 Travel 03/12/2024 Patient Outreach [facility] [address] [place] [address] Lara Headley MD Transition Of Care (Tcm) 03/12/[address] [address] Lara Headley MD Error (VOID this visit) 03/11/2024 Patient Outreach [facility] [address] [place] [address] Lara Headley MD Care Coordination (Outreach) 03/11/2024 Patient Outreach [facility] [address] [place] [address] Armand Dykes 03/11/2024 Patient Outreach [address] [address] Jack Tavares Recovery Supports 03/11/2024 Travel 03/10/2024 Patient Outreach [facility] [address] [place] [address] Evaristo Canchola Recovery Supports 03/09/2024 Patient Outreach [address] [address] Lara Headley MD Transition Of Care (Tcm) 03/09/[address] [address] Lara Headley MD 03/06/2024 Patient Outreach [address] [address] Armand Dykes Recovery Supports 03/05/2024 11:30 AM EST Clinical Support [facility] [address] [place] [address] Richard Woods RN Opioid dependence, uncomplicated (CMS/HCC) (Primary Dx) 03/05/2024 10:45 AM EST Office Visit [facility] [address] [place] [address] Lara Headley MD Generalized anxiety disorder (Primary Dx); Essential hypertension; Polysubstance abuse (CMS/HCC); Moderate benzodiazepine use disorder (CMS/HCC); Erectile dysfunction, unspecified erectile dysfunction type 03/05/2024 Refill [facility] [address] [place] [address] Richard Woods RN Opioid dependence, uncomplicated (CMS/HCC) 03/05/2024 Patient Outreach [facility] [address] [place] [address] Armand Dykes Recovery Supports 03/05/2024 Travel from Last 3 Months Immunizations Name Administration [...] Description 06/10/2024 9:00 AM EDT Clinical Support [facility] [address] [place] [address] Richard Woods, EMILY [address] [place] [address] 06/11/2024 10:45 AM EDT Office Visit [facility] [address] [place] [address] Lara Headley MD [address], [place] [phone] Health Maintenance Due Date Last Done Comments [...] 2) 2024 Depression Screening 04/23/2025 04/23/2024, 04/23/19 25 Tobacco Screening 04/23/2025 04/23/2024 SDOH Screening 05/08/2025 [...] Date/Time Associated Diagnosis Comments URINALYSIS WITH REFLEX MICROSCOPIC Routine 06/03/2024 3:48 PM EDT ACETAMINOPHEN LEVEL Routine 06/03/2024 2 :25 PM EDT SALICYLATE Routine 06/03/2024 2:25 PM EDT ETHANOL Routine 06/03/2024 2:25 PM EDT COMPREHENSIVE METABOLIC PANEL Routine 06/03/2024 2:25 PM EDT CBC WITH AUTO DIFFERENTIAL Routine 06/03/2024 2:25 PM EDT POCT RIN-14 URINE DRUG SCREEN Routine 06/03/2024 10:02 AM EDT Opioid dependence, uncomplicated (CMS/HCC) DRUG MONITOR, [...] Recently Relevant to Health Maintenance Results * Urinalysis w/reflex microscopic (06/03/2024 3:48 PM EDT) Only the most recent of4 resultswithin the time period is included. Color Urine Yellow [facility] Appearance Urine Clear [facility] PH 7.0 5.0 - 9.0 [facility] Glucose Urine UA Negative Negative mg/dL [facility] Urine Blood Negative Negative [facility] Specific [place] - Urine 1.020 1.005 - 1.025 [facility] Urine Protein Trace Neg-Trace mg/dL [facility] Urine Ketones Negative Negative mg/dL [facility] Nitrite Urine Negative Negative [facility] Leukocyte Esterase Urine Negative Negative [facility] 06/03/2024 3:48 PM EDT 06/03/2024 3:51 PM EDT Narrative [facility] - 06/03/2024 3:55 PM EDT [id number], Clean Catch Generic External Data Provider LAB URINE ORDERAB LES Final Result Performing Organization Address [facility] Co de Phone Number [facility] [address] [place] [phone] * Ethanol (06/03/2024 2:25 PM EDT) Only the most recent of4 resultswithin the time period is included. ETHANOL (MG/DL) IN SER/PLAS <10 mg/dL [facility] Comment:Serum/plasma ethanol results are to be used formedical/treatment purposes only. 06/03/2024 2:25 PM EDT 06/03/2024 2:29 PM EDT Generic External Data Provider LAB BLOOD ORDERAB LES Final Result Performing Organization Address [facility] de Phone Number [facility] [address] [place] [phone] * (ABNORMAL) CBC auto differential (06/03/2024 2:25 PM EDT) Only the most recent of6 resultswithin the time period is included. White Blood Count 4.3(L) 4.8 - 10.8 X10*3/uL [facility] Red Blood Count 4.59(L) 4.60 - 5.80 X10*6/uL [facility] Hemoglobin 12.2(L) 14.0 - 18.0 g/dl [facility] Hematocrit 36.9(L) 42.0 - 52.0 % [facility] Mean Corpuscular Volume 80.4 80.0 - 98.0 fL [facility] Mean Corpuscular Hemoglobin 26.6(L) 27.0 - 33.0 pg [facility] Mean Corpuscular HGB Conc 33.1 31.0 - 36.0 g/dl [facility] Red Cell Distribution Width 15.0 11.0 - 16.0 % [facility] Platelet Count 321 160 - 400 X10*3/uL [facility] Mean Platelet Volume 8.2(L) 9.4 - 12.4 fL [facility] Neutrophils Percent Auto 57.2 45 - 73 % [facility] Imm Gran Pct Auto 0.2 0.0 - 0.4 % [facility] Lymphocytes Percent Auto 29.6 20 - 40 % [facility] Monocytes Percent Auto 10.5 2 - 11 % [facility] Eosinophils Percent Auto 1.6 0 - 4 % [facility] Basophils Percent Auto 0.9 0 - 2 % [facility] NRBC Pct Auto 0.0 0.0 - 0.2 /100WBC [facility] Neutrophils Absolute Auto 2.5 2.0 - 8.3 x10*3/uL [facility] Imm Gran Abs Auto 0.01 0.00 - 0.03 X10*3/uL [facility] Lymphocytes Absolute Auto 1.3 1.2 - 4.9 X10*3/uL [facility] Monocytes Absolute Auto 0.5 0.1 - 1.2 X10*3/uL [facility] Eosinophils Absolute Auto 0.1 0.0 - 0.4 X10*3/uL [facility] Basophils Absolute Auto 0.0 0.0 - 0.2 X10*3/uL [facility] NRBC Abs Auto 0.000 0.0 - 0.012 X10*3/uL [facility] 06/03/2024 2:25 PM EDT 06/03/2024 2:29 PM EDT Generic External Data Provider LAB BLOOD ORDERAB LES Final Result Performing Organization Address [facility]/ZIP Co de Phone Number [facility] [address] [place] [phone] * Acetaminophen level (06/03/2024 2:25 PM EDT) Only the most recent of3 resultswithin the time period is included. Acetaminophen LAB <3 <30 mcg/mL [facility] 06/03/2024 2:25 PM EDT 06/03/2024 2:29 PM EDT Generic External Data Provider LAB BLOOD ORDERAB LES Final Result Performing Organization Address [facility] Co de Phone Number [facility] [address] [place] [phone] * (ABNORMAL) Salicylate (06/03/2024 2:25 PM EDT) Only the most recent of3 resultswithin the time period is included. Salicylate <5.0(L) 15 - 30 mg/dL [facility] 06/03/2024 2:25 PM EDT 06/03/2024 2:29 PM EDT Generic External Data Provider LAB BLOOD ORDERAB LES Final Result Performing Organization Address [facility] de Phone Number [facility] [address] [place] [phone] * (ABNORMAL) Comprehensive Metabolic Panel (06/03/2024 2:25 PM EDT) Only the most recent of6 resultswithin the time period is included. Sodium 140 135 - 145 mmol/L [facility] Potassium 4.0 3.3 - 5.1 mmol/L [facility] Chloride 104 96 - 108 mmol/L [facility] Carbon Dioxide 29 22 - 29 mmol/L [facility] Anion Gap 11(L) 12 - 20 [facility] Urea Nitrogen (BUN) 27(H) 9 - 16 mg/dL [facility] Creatinine, Serum 0.91 0.5 - 1.4 mg/dL [facility] Creatinine Clr Calc Pharmacy 93.7 [facility] Comment:eGFR (calculated fro m the MDRD study equation) and eCrCl(calculated from the Cockcroft-Gault equation) are based ondifferent parameters and may not yield comparable results.If eCrCl result is absurd, please check patient'sheight/weight. Estimated Glomerular Filt Rate >60 [facility] Comment:Chronic Kidney Disea se: Estimated GFR < 60 mL/min/[id number] Kidney Disease: Estimated GFR < 15 mL/min/1.73m2 Glucose 115 60 - 115 mg/dL [facility] Calcium 9.2 8.4 - 10.2 mg/dL [facility] Bilirubin, Total 0.3 0.0 - 1.0 mg/dL [facility] Aspartate Amino Transferase 39(H) 5 - 37 U/L [facility] Alanine Aminotransferase 24 0 - 40 U/L [facility] Total Protein 7.6 6.5 - 8.0 g/dL [facility] Albumin Level 4.2 3.5 - 5.0 g/dL [facility] Alkaline Phosphatase 87 39 - 117 U/L [facility] 06/03/2024 2:25 PM EDT 06/03/2024 2:29 PM EDT us Generic External Data Provider LAB BLOOD ORDERAB LES Final Result [facility] [address] [place] [phone] * POCT RIN-14 Urine Drug Screen (06/03/2024 10:02 AM EDT) Only the most recent of12 resultswithin the time period is included. THC [...] obtained by clean catch procedure / Unknown 06/03/2024 10:02 AM EDT Christian Arreguin MD POINT OF CARE TEST ENTER/EDIT OR DERABLES Final Result * (ABNORMAL) Urinalysis with Reflex to Microscopic (06/01/2024 6:49 PM EDT) Only the most recent of2 resultswithin the time period is included. Color Urine Yellow [facility] Appearance Urine Clear [facility] PH 6.0 5.0 - 9.0 [facility] Glucose Urine UA Negative Negative mg/dL [facility] Urine Blood Negative Negative [facility] Specific [place] - Urine >=1.030(H) 1.005 - 1.025 [facility] Urine Protein Negative Neg-Trace mg/dL [facility] Urine Ketones Trace Negative mg/dL [facility] Nitrite Urine Negative Negative [facility] Leukocyte Esterase Urine Negative Negative [facility] 06/01/2024 6:49 PM EDT 06/01/2024 6:54 PM EDT us Generic External Data Provider LAB URINE ORDERAB LES Final Result [facility] [address] [place] [phone] * (ABNORMAL) Drug Monitoring, Panel 1, Screen, Urine (06/01/2024 6:49 PM EDT) Only the most recent of5 resultswithin the time period is included. Opiate Screen Urine POSITIVE(A) Not Detect [facility] Comment:Opiate cut-off is 30 0 ng/mL.Positive results are unconfirmed and should not be used fornon-medical purposes. Barbiturates, Urine Not Detected Not Detect [facility] Comment:Barbiturate cut-off is 200 ng/mL.Positive results are unconfirmed and should not be used fornon-medical purposes. Phencyclidine Screen Urine Not Detected Not Detect [facility] Comment:Phencyclidine cut-of f is 25 ng/mL.Positive results are unconfirmed and should not be used fornon-medical purposes. Amphetamine Screen Urine Not Detected Not Detect [facility] Comment:Amphetamine cut-off is 1000 ng/mL.Positive results are unconfirmed and should not be used fornon-medical purposes. Benzodiazepines Screen Urine Not Detected Not Detect [facility] Comment:Benzodiazepine cut-o ff is 200 ng/mL.Positive results are unconfirmed and should not be used fornon-medical purposes. Cocaine Screen Urine POSITIVE(A) Not Detect [facility] Comment:Cocaine cut-off is 3 00 ng/mL.Positive results are unconfirmed and should not be used fornon-medical purposes. Cannabinoid Screen Urine Not Detected Not Detect [facility] Comment:Cannabinoid cut-off is 50 ng/mL.Positive results are unconfirmed and should not be used fornon-medical purposes. Methadone Screen, Urine Not Detected Not Detect ng/mL [facility] Comment:Methadone cut-off is 300 ng/mL.Positive results are unconfirmed and should not be used fornon-medical purposes. FENTANYL URINE POSITIVE(A) Not Detect [facility] Comment:Fentanyl cut-off is 1 ng/mL.Positive results are unconfirmed and should not be used fornon-medical purposes. Oxycodone Urine Screen Not Detected Not Detect ng/mL [facility] Comment:Oxycodone cut-off is 100 ng/mL.Positive results are unconfirmed and should not be used fornon-medical purposes. Buprenorphine Screen Not Detected Not Detect ng/mL [facility] Comment:Buprenorphine cut-of f is 5 ng/mL.Positive results are unconfirmed and should not be used fornon-medical purposes. 06/01/2024 6:49 PM EDT 06/01/2024 6:54 PM EDT us Generic External Data Provider LAB URINE ORDERAB LES Final Result [facility] [address] [place] [address] [phone] * COVID-19 ID NOW (RODRIGUEZ) (06/01/2024 4:42 PM EDT) Only the most recent of2 resultswithin the time period is included. IDNOW SERIAL# [id number] [facility] COVID-19 TEST Negative Negative [facility] COVID-19 NOTE See Note [facility] Comment: Results are for the identification of SARS-CoV2 RNA. TheSARS-CoV2 RNA is generally detectable in respiratory samplesduring the acute phase of infection. Positive results areindicative of the presence of SARS-CoV-2 RNA; clinicalcorrelation with patient history and other diagnosticinformation is necessary to determine patient infectionstatus. Positive results do not rule out bacterial infectionor co- infection with other viruses.Testing facilities within the [facility] and itsterritories are required to report all [...] GNOSTICS ORDERABLES Final Result Performing Organization Address [facility] Co de Phone Number [facility] [address] [place] [address] [phone] * Magnesium (05/22/2024 9:40 AM EDT) Magnesium 2.0 1.6 - 2.6 mg/dL [facility] 05/22/2024 9:40 AM EDT 05/22/2024 9:49 AM EDT us Generic External Data Provider LAB BLOOD ORDERAB LES Final Result Performing Organization Address [facility] de Phone Number [facility] [address] [place] [address] [phone] * HIV Ab/Ag ([facility]) (09/14/2022 11:14 AM EDT) Pathologist [facility] HIV AB/AG Nonreactive Nonreactive [facility] Comment:HIV-1 p24 Ag and/or HIV-1/HIV-2 Ab not detected.A test result that is nonreactive does not exclude thepossibility of exposure to or infection with HIV-1 and/orHIV-2. Nonreactive results in this assay for individualswith prior exposure to HIV-1 and/or HIV-2 may be due toantigen and antibody levels that are below the limit ofdetection of this assay.The Rodriguez Supervisor Unloading HIV Ag/Ab Combo assay result andsupplemental assay results should be interpreted inconjunction with the patient's clinical presentation,history and other laboratory results. If the results areinconsistent with clinical evidence, additional testing issuggested to confirm the result. 09/14/2022 11:1 4 AM EDT 09/14/2022 2:37 PM EDT us Lara Headley MD LAB BLOOD ORDERABLES Fin al Result Performing Organization Address [facility] Co de Phone Number [facility] [address] [place] [address] [phone] * Lipid Panel, Standard (09/14/2022 11:14 AM EDT) Triglycerides 85 mg/dL [facility] Comment:Desirable Triglyceri de: less than 150 mg/dLBorderline High Triglyceride 150-199 mg/dLHigh Triglyceride: 200-499 mg/dLVery High Triglyceride: greater than or equal to 5OO mg/dL Cholesterol 139 mg/dL [facility] Comment:Desirable Cholestero l: less than 200 mg/dLBorderline High Cholesterol: 200-239 mg/dLHigh Cholesterol: greater than 239 mg/dL LDL Cholesterol Calculated 79 mg/dl [facility] Comment:Desirable LDL: less than 100 mg/dLNear Optimal/Above Optimal LDL: 110- 129 mg/dLBorderline High LDL: 130-159 mg/dLHigh LDL: 160-189 mg/dLVery High LDL: greater than or equal to 190 mg/dL HDL Cholesterol 43 mg/dL [facility] Comment:Desirable HDL: great er than 40 mg/dL Note: This HDL assay may give artificially low results in patients with liver disease. 09/14/2022 11:1 4 AM EDT 09/14/2022 2:37 PM EDT us Lara Headley MD LAB BLOOD ORDERABLES Fin al Result [facility] [address] [place] [address] [phone] from Last 3 Months or Most Recently Relevant to Health Maintenance Insurance [employer] [place] AD[place] Care Teams Agency Sales Development Associate Relationship Specialty Start Date End Date Lara Headley MD [address] [place] [phone] PCP - General Family Medicine 08/31/16
--- OUTSIDE RECORDS SUMMARY | 2024-06-03 16:21 | XMS_ITS | Encounter Summary ---
Author Organization [employer] Address [address] [facility] [address]t [place] [address] Care Team Providers Care Computer Numerical Control Grinder Name Role Phone Lara Headley MD Primary Care Provider + Reason for Visit * Reason Comments GBAT Encounter Details Date Type Department Care Team (Latest Contact Info) Description 06/03/2024 9:00 AM EDT Office Visit [facility] [address] [place], [place] [phone] Christian Arreguin MD [address] [place] [address] Opioid dependence, uncomplicated (CMS/HCC) (Primary Dx) Social [...] Progress Notes * Christian Arreguin MD - 06/03/2024 9:00 AM EDT Patient with OUD presents for GBAT visit. Patient on current Suboxone dose of 16/4 mg on a 1-week schedule. Induction date: 02/10/24. LFTs done 02/11/24. Patient actively enrolled in behavioral health services, integrated therapist and psychiatrist. Was followed in Dr. El's OBAT clinic, but theGBAT team will assume the Rx management LAST GBAT VISIT 05/27/2024 UTOX: POS ARISTEO, MTD, FEN NEG FOR BUP Patient presents for Group-Based Opioid Treatment for OUD Reviewed the group goals, expectations and policies Consented to the group treatment options Actively participated in the group discussion with the topic of: Open Discussion Mindfulness Moment Following staff present at the visit: Front Office Java Developer, Team RN, Clinician, & Physician Opportunities provided [...] Methadone, but patient declined at this time TODAY GBAT VISIT 06/03/2024 UTOX: POS ARISTEO & FEN NEG FOR BUPRENORPHINE Patient presents for Group-Based Opioid Treatment for OUD Reviewed the group goals, expectations and policies Consented to the group treatment options Actively participated in the group discussion with the topic of: Recognizing and Celebrating Your Progress Following staff present at the visit: Front Office Java Developer, Team RN, Clinician, & Physician Opportunities provided to address individual medical/medication/ concerns UTOX again negative for BUP (states he was running out of Rx) I informed him that we cannot continue with SL form of Buprenorphine given his UTOX have been serially negative; understands the plan Reviewed other options including Sublocade and Methadone, but patient declined at this time Met with today Wishes to present to inpatient detox (the team will assist him in getting into detox today) Review of Systems Psychiatric/Behavioral: Negative for behavioral [...] the group discussed Future discussion topics reviewed Reviewed behavioral modification and accessing services Group counseling provided with a focus on support system, tools for achieving/maintaining recovery Reviewed barriers for these goals Discussed strategies to address when faced situations that may trigger use Mass TEAR DOWN WORKER reviewed Following staff present at the visit: Physician, Team RN, Clinician, Front Office Java Developer and Sap Gatherer Follow up in 1 week for the next GBAT meeting or when he is released from detox This information has been disclosed to you [...] Description 06/10/2024 9:00 AM EDT Clinical Support [address] [phone] Richard Woods RN [address] [place] [phone] 06/11/2024 10:45 AM EDT Office Visit [address] [phone] Lara Headley MD [address] [place] [phone] documented as of this encounter Goals Goal Patient Goal Type Associated Problems Recent Progress Patient-Stated? Author Take buprenorphine as prescribed General Yes Chanel Thrasher RN Keep your medical appointments Lifestyle No Richard Woods RN documented as of this encounter Procedures Procedure Name Priority Date/Time Associated Diagnosis Comments POCT RIN-14 URINE DRUG SCREEN Routine 06/03/2024 10:02 AM EDT Opioid dependence, uncomplicated (CMS/HCC) documented in this encounter Results * POCT RIN-14 Urine Drug Screen (06/03/2024 10:02 AM EDT) THC Negative Cocaine Screen, Urine [...] documented as of this encounter Care Teams Computer Numerical Control Grinder Relationship Specialty Start Date End Date Lara Headley MD [address] [place] [address] PCP - General Family Medicine 08/31/16 documented as of this encounter
--- OUTSIDE RECORDS SUMMARY | 2024-06-03 16:21 | XMS_ITS | Encounter Summary ---
Author Organization [employer] Address [address] [facility] 7[address] [place] [address] Care Team Providers Care Manager Game Name Role Phone Lara Headley MD Primary Care Provider + Reason for Visit * Reason Onset Date Comments Med Refill 05/27/2024 Encounter Details Date Type Department Care Team (Late st Contact Info) Description 05/27/2024 Refill [facility] [address] [place] [address] Chanel Thrasher RN Social History Tobacco Use [...] the past 12 months, has t he [employer], gas, oil or water company threatened to [...] Description 06/10/2024 9:00 AM EDT Clinical Support [facility] [address] [place] [phone] Richard Woods RN [address] [place] [phone] 06/11/2024 10:45 AM EDT Office Visit [facility] [address] [place] [phone] Lara Headley MD [address] [place] [phone] documented as of this encounter Goals Goal [...] as of this encounter Care Teams Manager Game Relationship Specialty Start Date End Date Lara Headley MD [address] [place] [address] PCP - General Family Medicine 08/31/16 documented as of this encounter
--- OUTSIDE RECORDS SUMMARY | 2024-06-03 16:21 | XMS_ITS | Encounter Summary ---
Author Organization [employer] Address [address] [facility] 7t [place] [address] Care Team Providers Care Buttonhole Facer Name Role Phone Lara Headley MD Primary Care Provider + Reason for Visit * Reason Onset Date Comments Med Refill 05/28/2024 Encounter Details Date Type Department Care Team (Late st Contact Info) Description 05/28/2024 Refill [facility] [address] [place] [address] Chanel Thrasher RN Opioid dependence, uncomplicated (CMS/HCC) [...] the past 12 months, has t he [employer], [employer], oil or water [employer] threatened to shut off services in your [...] Description 06/10/2024 9:00 AM EDT Clinical Support [facility] [address] [place] [phone] Richard Woods RN [address] [place] [phone] 06/11/2024 10:45 AM EDT Office Visit [facility] [address] [place] [phone] Lara Headley MD [address] [place] [phone] documented as of this encounter Goals Goal [...] documented as of this encounter Care Teams Buttonhole Facer Relationship Specialty Start Date End Date Lara Headley MD [address] [place] [phone] PCP - General Family Medicine 08/31/16 documented as of this encounter
--- OUTSIDE RECORDS SUMMARY | 2024-06-03 16:21 | XMS_ITS | Encounter Summary ---
Author Organization [employer] Address [address] [facility] 7t [place] [address] Care Team Providers Care Job Estimator Name Role Phone Lara Headley MD Primary Care Provider + Reason for Visit * Reason Comments Transition Of Care (Tcm) Encounter Details Date Type Department Care Team ([facility] st Contact Info) Description 06/02/2024 Patient Outreach [facility]INE [address] [place], [place] [phone] Lara Headley MD [address] [place] [address] Transition Of Care (Tcm) Social History Tobacco [...] Progress Notes * Claudette Mcguire RN - 06/02/2024 9:20 AM EDT Transition of Care Note Sudhir Morales is going through a recent transition of care. * Tita Randall RN - 06/02/2024 9:20 AM EDT Images from the original note were not included. Hospital Discharges and Admission for [facility] Type of Visit: Emergency Department Date of Admission/Visit: 06/01/24 Date of Discharge: 05/25/24 Facility: [facility] Diagnosis: Crisis Eval Disposition: Discharged Home Follow-Up Actions Follow-Up Needed: Provider appointment Follow-Up Outcome: Spoke to Caregiver; Booked Appointment Initial Contact Date: 05/25/24 Patient Contacted: Unable to leave message The full discharge summary is Is available under encounters/interface Review Flowsheet More data exists [facility] Transition of Care Documentation Type of Visit Date of Admission/Visit Date of Discharge Facility Diagnosis Disposition 02/28/2024 8:46 AM Emergency Department 02/27/2024 9:31 pm 02/28/2024 2:35 am [facility] Chest pain, HTN, cocaine abuse Discharged Home 03/02/2024 8:41 AM Emergency Department 02/27/2024 9:31pm 02/28/2024 2:35am [facility] Headache, unspecified, Essential (primary) hypertension, Chest pain, unspecified, Cocaine abuse, uncomplicated, Poisoning by fentanyl or fentanyl analogs, accidental (unintentional), initial encounter, hypertension Discharged Home 03/02/2024 8:43 AM Emergency Department 03/02/[address] - [facility] PSYCH EVAL,SI,CRACK ARISTEO USE FROM PD STATION - 03/09/2024 10:06 AM Emergency Department 03/07/2024 3:17 am 03/07/2024 8:[address] [facility] CP Discharged Home 03/09/2024 11:00 AM Emergency Department 03/07/2024 03/07/2024 [facility] Atypical chest pain Discharged Home 03/12/2024 9:55 AM Emergency Department 03/10/2024 6:49am 03/10/2024 11:[address] [facility] SI Discharged Home 04/06/2024 9:42 AM Emergency Department 04/05/[address] - [facility] CRISIS Admitted 04/24/2024 10:38 AM Emergency Department 04/24/2024 04/24/2024 [facility] Hypertension DischargedHome 05/08/2024 9:34 AM Emergency Department 05/07/2024 05/07/2024 [facility] Other chest pain, Hypertension Discharged Home 05/08/2024 10:35 AM Hospital Admission 04/27/2024 05/04/2024 [facility] Schizoaffective disorder, depressive type , PTSD ,Opioid use disorder , Cocaine use disorder Discharged Home 05/25/2024 12:34 PM Hospital Admission 05/22/2024 05/25/2024 [facility] mood disorder Discharged Home 06/02/2024 9:20 AM Emergency Department 06/01/2024 - [facility] Crisis Eval Discharged Home Recent Visits Date Type Provider Dept 05/27/24 Office Visit Christian Arreguin MD [facility] Medicine 05/20/24 Office Visit Christian Arreguin MD [facility] Medicine 05/07/24 Office Visit Dalia El MD [facility] Medicine 05/06/24 Office Visit Christian Arreguin MD [facility] Medicine 04/23/24 Office Visit Dalia El MD [facility] Medicine 04/02/24 Office Visit Dalia El MD [facility] Medicine 03/12/24 Office Visit Dalia El MD [facility] Medicine 03/05/24 Office Visit Lara Headley MD [facility] Medicine 02/10/24 Office Visit Dalia El MD [facility] Medicine 11/25/23 Office Visit Lara Headley MD [facility] Showing recent visits within past 365 days with a meds authorizing provider and meeting all other requirements Future Appointments Date Type Provider Dept 06/03/24 Appointment Christian Arreguin MD [facility] Medicine 06/11/24 Appointment Lara Headley MD [facility] Showing future appointments within next 150 days with a meds authorizing provider and meeting all other requirements ED note reviewed, pt. In ED 06/01/24 for anxiety, depression, polysubstance abuse. Cleared for discharge by CARE team. No med changes. TC placed to pt. For status check, no answer, VM box not set up. Pt. To f/up at [facility] from recent psych discharge 05/26/24 or sooner prn documented in this encounter Plan of Treatment Upcoming Encounters Date Type Department Care Team (Late st Contact Info) Description 06/10/2024 9:00 AM EDT Clinical Support [facility]INE [address] [place] [phone] Richard Woods, EMILY [address] [place] [address] 06/11/2024 10:45 AM EDT Office Visit [address] [phone] Lara Headley MD [address] [place] [phone] documented as of this encounter Goals Goal [...] documented as of this encounter Care Teams Job Estimator Relationship Specialty Start Date End Date Lara Headley MD [address] [place] [phone] PCP - General Family Medicine 08/31/16 documented as of this encounter
--- OUTSIDE RECORDS SUMMARY | 2024-06-03 16:21 | XMS_ITS | Encounter Summary ---
Author Organization [employer] Address [address] [facility] 7[address] [place] [address] Care Team Providers Care Machine Quilt Stuffer Name Role Phone Lara Headley MD Primary Care Provider + Encounter Details Date Type Department Care Team (Late st Contact Info) Description 06/03/2024 Orders Only GENERIC EXTERNAL DATA DEPARTMENT [...] Description 06/10/2024 9:00 AM EDT Clinical Support [facility] [address] [place] [phone] Richard Woods RN [address] [place] [phone] 06/11/2024 10:45 AM EDT Office Visit [facility] [address] [place] [phone] Lara Headley MD [address] [place] [phone] documented as of this encounter Goals Goal Patient Goal Type Associated Problems Recent Progress Patient-Stated? Author Take buprenorphine as prescribed General Yes Chanel Thrasher, EMILY Keep your medical appointments Lifestyle No Richard Woods RN documented as of this encounter Procedures Procedure Name Priority Date/Time Associated Diagnosis Comments URINALYSIS WITH REFLEX MICROSCOPIC Routine 06/03/2024 3:48 PM EDT ETHANOL Routine 06/03/2024 2:25 PM EDT CBC WITH AUTO DIFFERENTIAL Routine 06/03/2024 2:25 PM EDT ACETAMINOPHEN LEVEL Routine 06/03/2024 2 :25 PM EDT SALICYLATE Routine 06/03/2024 2:25 PM EDT COMPREHENSIVE METABOLIC PANEL Routine 06/03/2024 2:25 PM EDT documented in this encounter Results * Urinalysis w/reflex microscopic (06/03/2024 3:48 PM EDT) Color Urine Yellow [facility] Appearance Urine Clear [facility] PH 7.0 5.0 - 9.0 [facility] Glucose Urine UA Negative Negative mg/dL [facility] Urine Blood Negative Negative [facility] Specific [place] - Urine 1.020 1.005 - 1.025 [facility] Urine Protein Trace Neg-Trace mg/dL [facility] Urine Ketones Negative Negative mg/dL [facility] Nitrite Urine Negative Negative [facility] Leukocyte Esterase Urine Negative Negative [facility] 06/03/2024 3:48 PM EDT 06/03/2024 3:51 PM EDT Narrative [facility] - 06/03/2024 3:55 PM EDT [id number], Clean Catch us Generic External Data Provider LAB URINE ORDERAB LES Final Result Performing Organization Address [facility] de Phone Number [facility] [address] [place] [phone] * Acetaminophen level (06/03/2024 2:25 PM EDT) Acetaminophen LAB <3 <30 mcg/mL [facility] 06/03/2024 2:25 PM EDT 06/03/2024 2:29 PM EDT us Generic External Data Provider LAB BLOOD ORDERAB LES Final Result Performing Organization Address [facility] Co de Phone Number [facility] [address] [place] [address] [phone] * (ABNORMAL) Salicylate (06/03/2024 2:25 PM EDT) Salicylate <5.0(L) 15 - 30 mg/dL [facility] 06/03/2024 2:25 PM EDT 06/03/2024 2:29 PM EDT Generic External Data Provider LAB BLOOD ORDERAB LES Final Result Performing Organization Address [facility] Co de Phone Number [facility] [address] [place] [phone] * Ethanol (06/03/2024 2:25 PM EDT) Pathologist [facility] ETHANOL (MG/DL) IN SER/PLAS <10 mg/dL [facility] Comment:Serum/plasma ethanol results are to be used formedical/treatment purposes only. 06/03/2024 2:25 PM EDT 06/03/2024 2:29 PM EDT Generic External Data Provider LAB BLOOD ORDERAB LES Final Result Performing Organization Address [facility] Co de Phone Number [facility] [address] [place] [phone] * (ABNORMAL) Comprehensive Metabolic Panel (06/03/2024 2:25 PM EDT) Sodium 140 135 - 145 mmol/L [facility] Potassium 4.0 3.3 - 5.1 mmol/L [facility] Chloride 104 96 - 108 mmol/L [facility] Carbon Dioxide 29 22 - 29 mmol/L [facility] Anion Gap 11(L) 12 - 20 [facility] Urea Nitrogen (BUN) 27(H) 9 - 16 mg/dL [facility] Creatinine, Serum 0.91 0.5 - 1.4 mg/dL [facility] Creatinine Clr Calc Pharmacy 93.7 [facility] Comment:eGFR (calculated fro m the MDRD study equation) and eCrCl(calculated from the Cockcroft-Gault equation) are based ondifferent parameters and may not yield comparable results.If eCrCl result is absurd, please check patient'sheight/weight. Estimated Glomerular Filt Rate >60 [facility] Comment:Chronic Kidney Disea se: Estimated GFR < 60 mL/min/[id number] Kidney Disease: Estimated GFR < 15 mL/min/1.73m2 Glucose 115 60 - 115 mg/dL [facility] Calcium 9.2 8.4 - 10.2 mg/dL [facility] Bilirubin, Total 0.3 0.0 - 1.0 mg/dL [facility] Aspartate Amino Transferase 39(H) 5 - 37 U/L [facility] Alanine Aminotransferase 24 0 - 40 U/L [facility] Total Protein 7.6 6.5 - 8.0 g/dL [facility] Albumin Level 4.2 3.5 - 5.0 g/dL [facility] Alkaline Phosphatase 87 39 - 117 U/L [facility] 06/03/2024 2:25 PM EDT 06/03/2024 2:29 PM EDT us Generic External Data Provider LAB BLOOD ORDERAB LES Final Result [facility] [address] [place] [address] [phone] * (ABNORMAL) CBC auto differential (06/03/2024 2:25 PM EDT) White Blood Count 4.3(L) 4.8 - 10.8 X10*3/uL [facility] Red Blood Count 4.59(L) 4.60 - 5.80 X10*6/uL [facility] Hemoglobin 12.2(L) 14.0 - 18.0 g/dl [facility] Hematocrit 36.9(L) 42.0 - 52.0 % [facility] Mean Corpuscular Volume 80.4 80.0 - 98.0 fL [facility] Mean Corpuscular Hemoglobin 26.6(L) 27.0 - 33.0 pg [facility] Mean Corpuscular HGB Conc 33.1 31.0 - 36.0 g/dl [facility] Red Cell Distribution Width 15.0 11.0 - 16.0 % [facility] Platelet Count 321 160 - 400 X10*3/uL [facility] Mean Platelet Volume 8.2(L) 9.4 - 12.4 fL [facility] Neutrophils Percent Auto 57.2 45 - 73 % [facility] Imm Gran Pct Auto 0.2 0.0 - 0.4 % [facility] Lymphocytes Percent Auto 29.6 20 - 40 % [facility] Monocytes Percent Auto 10.5 2 - 11 % [facility] Eosinophils Percent Auto 1.6 0 - 4 % [facility] Basophils Percent Auto 0.9 0 - 2 % [facility] NRBC Pct Auto 0.0 0.0 - 0.2 /100WBC [facility] Neutrophils Absolute Auto 2.5 2.0 - 8.3 x10*3/uL [facility] Imm Gran Abs Auto 0.01 0.00 - 0.03 X10*3/uL [facility] Lymphocytes Absolute Auto 1.3 1.2 - 4.9 X10*3/uL [facility] Monocytes Absolute Auto 0.5 0.1 - 1.2 X10*3/uL [facility] Eosinophils Absolute Auto 0.1 0.0 - 0.4 X10*3/uL [facility] Basophils Absolute Auto 0.0 0.0 - 0.2 X10*3/uL [facility] NRBC Abs Auto 0.000 0.0 - 0.012 X10*3/uL [facility] 06/03/2024 2:25 PM EDT 06/03/2024 2:29 PM EDT us Generic External Data Provider LAB BLOOD ORDERAB LES Final Result [facility] [address] [place] [phone] [phone] documented in this encounter Visit Diagnoses Not on filedocumented in this encounter Additional Health Concerns Assessment Noted Time PHQ-9 Depression Total Score: 3 04/23/19 25 11:02 AM EST documented as of this encounter Care Teams Machine Quilt Stuffer Relationship Specialty Start Date End Date Lara Headley MD [address] [place] [phone] PCP - General Family Medicine 08/31/16 documented as of this encounter
--- OUTSIDE RECORDS SUMMARY | 2024-06-03 16:21 | XMS_ITS ---
Author Organization [employer] Address [address] [facility] 7t [place] [address] Care Team Providers Care Software Security Architect Name Role Phone Lara Headley MD Primary Care Provider + CHW Complex Status:Identified (Enrolling) Start date:05/25/2024 Enrollment reason:ADT Feed Overview ED- Pt went to [facility] ED on 05/22/24. Please outreach pt Continued Care and Services Coordination
--- OUTSIDE RECORDS SUMMARY | 2024-06-03 16:21 | XMS_ITS | Encounter Summary ---
Author Organization [employer] Address [address] [facility] [address]t [place] [address] Care Team Providers Care Registered Art Therapist Name Role Phone Lara Headley MD Primary [...] Description 06/10/2024 9:00 AM EDT Clinical Support [facility] [address] [place] [phone] Richard Woods RN [address] [place] [phone] 06/11/2024 10:45 AM EDT Office Visit [facility] [address] [place] [phone] Lara Headley MD [address] [place] [address] [phone] documented as of this encounter Goals Goal [...] EDT) Opiate Screen Urine POSITIVE(A) Not Detect [facility] Comment:Opiate cut-off is 30 0 ng/mL.Positive results are unconfirmed and should not be used fornon-medical purposes. Barbiturates, Urine Not Detected Not Detect [facility] Comment:Barbiturate cut-off is 200 ng/mL.Positive results are unconfirmed and should not be used fornon-medical purposes. Phencyclidine Screen Urine Not Detected Not Detect [facility] Comment:Phencyclidine cut-of f is 25 ng/mL.Positive results are unconfirmed and should not be used fornon-medical purposes. Amphetamine Screen Urine Not Detected Not Detect [facility] Comment:Amphetamine cut-off is 1000 ng/mL.Positive results are unconfirmed and should not be used fornon-medical purposes. Benzodiazepines Screen Urine Not Detected Not Detect [facility] Comment:Benzodiazepine cut-o ff is 200 ng/mL.Positive results are unconfirmed and should not be used fornon-medical purposes. Cocaine Screen Urine POSITIVE(A) Not Detect [facility] Comment:Cocaine cut-off is 3 00 ng/mL.Positive results are unconfirmed and should not be used fornon-medical purposes. Cannabinoid Screen Urine Not Detected Not Detect [facility] Comment:Cannabinoid cut-off is 50 ng/mL.Positive results are unconfirmed and should not be used fornon-medical purposes. Methadone Screen, Urine Not Detected Not Detect ng/mL [facility] Comment:Methadone cut-off is 300 ng/mL.Positive results are unconfirmed and should not be used fornon-medical purposes. FENTANYL URINE POSITIVE(A) Not Detect [facility] Comment:Fentanyl cut-off is 1 ng/mL.Positive results are unconfirmed and should not be used fornon-medical purposes. Oxycodone Urine Screen Not Detected Not Detect ng/mL [facility] Comment:Oxycodone cut-off is 100 ng/mL.Positive results are unconfirmed and should not be used fornon-medical purposes. Buprenorphine Screen Not Detected Not Detect ng/mL [facility] Comment:Buprenorphine cut-of f is 5 ng/mL.Positive results are unconfirmed and should not be used fornon-medical purposes. 06/01/2024 6:49 PM EDT 06/01/2024 6:54 PM EDT us Generic External Data Provider LAB URINE ORDERAB LES Final Result [facility] [address] [place] [address] [phone] * (ABNORMAL) Urinalysis with Reflex to Microscopic (06/01/2024 6:49 PM EDT) Color Urine Yellow [facility] Appearance Urine Clear [facility] PH 6.0 5.0 - 9.0 [facility] Glucose Urine UA Negative Negative mg/dL [facility] Urine Blood Negative Negative [facility] Specific [place] - Urine >=1.030(H) 1.005 - 1.025 [facility] Urine Protein Negative Neg-Trace mg/dL [facility] Urine Ketones Trace Negative mg/dL [facility] Nitrite Urine Negative Negative [facility] Leukocyte Esterase Urine Negative Negative [facility] 06/01/2024 6:49 PM EDT 06/01/2024 6:54 PM EDT us Generic External Data Provider LAB URINE ORDERAB LES Final Result Performing Organization Address [facility] Co de Phone Number [facility] [address] [place] [phone] * Acetaminophen level (06/01/2024 4:42 PM EDT) Acetaminophen LAB <3 <30 mcg/mL [facility] 06/01/2024 4:42 PM EDT 06/01/2024 4:56 PM EDT Generic External Data Provider LAB BLOOD ORDERAB LES Final Result Performing Organization Address [facility] Co de Phone Number [facility] [address] [place] [address] [phone] * (ABNORMAL) Salicylate (06/01/2024 4:42 PM EDT) Salicylate <5.0(L) 15 - 30 mg/dL [facility] 06/01/2024 4:42 PM EDT 06/01/2024 4:56 PM EDT Generic External Data Provider LAB BLOOD ORDERAB LES Final Result Performing Organization Address [facility] Co de Phone Number [facility] [address] [place] [phone] * Ethanol (06/01/2024 4:42 PM EDT) ETHANOL (MG/DL) IN SER/PLAS <10 mg/dL [facility] Comment:Serum/plasma ethanol results are to be used formedical/treatment purposes only. 06/01/2024 4:42 PM EDT 06/01/2024 4:56 PM EDT Generic External Data Provider LAB BLOOD ORDERAB LES Final Result Performing Organization Address [facility]/ZIP Co de Phone Number [facility] [address] [place] [phone] * (ABNORMAL) Comprehensive Metabolic Panel (06/01/2024 4:42 PM EDT) Sodium 140 135 - 145 mmol/L [facility] Potassium 3.7 3.3 - 5.1 mmol/L [facility] Chloride 103 96 - 108 mmol/L [facility] Carbon Dioxide 28 22 - 29 mmol/L [facility] Anion Gap 13 12 - 20 [facility] Urea Nitrogen (BUN) 19(H) 9 - 16 mg/dL [facility] Creatinine, Serum 0.90 0.5 - 1.4 mg/dL [facility] Creatinine Clr Calc Pharmacy 93.8 [facility] Comment:eGFR (calculated fro m the MDRD study equation) and eCrCl(calculated from the Cockcroft-Gault equation) are based ondifferent parameters and may not yield comparable results.If eCrCl result is absurd, please check patient'sheight/weight. Estimated Glomerular Filt Rate >60 [facility] Comment:Chronic Kidney Disea se: Estimated GFR < 60 mL/min/[id number] Kidney Disease: Estimated GFR < 15 mL/min/1.73m2 Glucose 85 60 - 115 mg/dL [facility] Calcium 9.1 8.4 - 10.2 mg/dL [facility] Bilirubin, Total 0.3 0.0 - 1.0 mg/dL [facility] Aspartate Amino Transferase 31 5 - 37 U/L [facility] Alanine Aminotransferase 24 0 - 40 U/L [facility] Total Protein 7.4 6.5 - 8.0 g/dL [facility] Albumin Level 4.2 3.5 - 5.0 g/dL [facility] Alkaline Phosphatase 83 39 - 117 U/L [facility] 06/01/2024 4:42 PM EDT 06/01/2024 4:56 PM EDT us Generic External Data Provider LAB BLOOD ORDERAB LES Final Result Performing Organization Address [facility] Co de Phone Number [facility] [address] [place] [phone] * COVID-19 ID NOW (RODRIGUEZ) (06/01/2024 4:42 PM EDT) IDNOW SERIAL# [id number] [facility] COVID-19 TEST Negative Negative [facility] COVID-19 NOTE See Note [facility] Comment: Results are for the identification of SARS-CoV2 RNA. TheSARS-CoV2 RNA is generally detectable in respiratory samplesduring the acute phase of infection. Positive results areindicative of the presence of SARS-CoV-2 RNA; clinicalcorrelation with patient history and other diagnosticinformation is necessary to determine patient infectionstatus. Positive results do not rule out bacterial infectionor co- infection with other viruses.Testing facilities within the [facility] and itsterritories are required to report [...] GNOSTICS ORDERABLES Final Result Performing Organization Address [facility]/ZIP Co de Phone Number [facility] [address] [place] [phone] * (ABNORMAL) CBC auto differential (06/01/2024 4:42 PM EDT) White Blood Count 4.7(L) 4.8 - 10.8 X10*3/uL [facility] Red Blood Count 4.48(L) 4.60 - 5.80 X10*6/uL [facility] Hemoglobin 11.6(L) 14.0 - 18.0 g/dl [facility] Hematocrit 36.6(L) 42.0 - 52.0 % [facility] Mean Corpuscular Volume 81.7 80.0 - 98.0 fL [facility] Mean Corpuscular Hemoglobin 25.9(L) 27.0 - 33.0 pg [facility] Mean Corpuscular HGB Conc 31.7 31.0 - 36.0 g/dl [facility] Red Cell Distribution Width 15.1 11.0 - 16.0 % [facility] Platelet Count 309 160 - 400 X10*3/uL [facility] Mean Platelet Volume 8.1(L) 9.4 - 12.4 fL [facility] Neutrophils Percent Auto 45.6 45 - 73 % [facility] Imm Gran Pct Auto 0.2 0.0 - 0.4 % [facility] Lymphocytes Percent Auto 40.9(H) 20 - 40 % [facility] Monocytes Percent Auto 10.6 2 - 11 % [facility] Eosinophils Percent Auto 1.9 0 - 4 % [facility] Basophils Percent Auto 0.8 0 - 2 % [facility] NRBC Pct Auto 0.0 0.0 - 0.2 /100WBC [facility] Neutrophils Absolute Auto 2.2 2.0 - 8.3 x10*3/uL [facility] Imm Gran Abs Auto 0.01 0.00 - 0.03 X10*3/uL [facility] Lymphocytes Absolute Auto 1.9 1.2 - 4.9 X10*3/uL [facility] Monocytes Absolute Auto 0.5 0.1 - 1.2 X10*3/uL [facility] Eosinophils Absolute Auto 0.1 0.0 - 0.4 X10*3/uL [facility] Basophils Absolute Auto 0.0 0.0 - 0.2 X10*3/uL [facility] NRBC Abs Auto 0.000 0.0 - 0.012 X10*3/uL [facility] 06/01/2024 4:42 PM EDT 06/01/2024 4:56 PM EDT us Generic External Data Provider LAB BLOOD ORDERAB LES Final Result [facility] [address] [place] [phone] documented in this encounter Visit Diagnoses Not on filedocumented in this encounter Additional Health Concerns Assessment Noted Time PHQ-9 Depression Total Score: 3 04/23/19 25 11:02 AM EST documented as of this encounter Care Teams Registered Art Therapist Relationship Specialty Start Date End Date Lara Headley MD [address] [place] [phone] PCP - General Family Medicine 08/31/16 documented as of this encounter
[2024-06-03 17:10] LABS: Amphetamine Screen Urine Not Detected (Not Detect); Barbiturates, Urine Not Detected (Not Detect); Benzodiazepines Screen Urine Not Detected (Not Detect); Buprenorphine Scr Not Detected (Not Detect); Cannabinoid Screen Urine Not Detected (Not Detect); Cocaine Screen Urine POSITIVE (Not Detect); Fentanyl, urine POSITIVE (Not Detect); Methadone Screen, Urine Not Detected (Not Detect); Opiate Screen Urine POSITIVE (Not Detect); Oxycodone Screen Urine Not Detected (Not Detect); Phencyclidine Screen Urine Not Detected (Not Detect)
[2024-06-03 17:34] VITALS: BP 164/93; PULSE 75; RESP 18; TEMP 36.5; O2SAT 100
--- NOTE | 2024-06-03 17:38 | PC.NURSE ---
patient reporting being worried about his blood pressure, TRUDY thomas
[2024-06-03 17:53] VITALS: BP 164/93
[2024-06-03] MEDS: cloNIDine HCL 0.1 MG TABLET PO (17:53)
--- NOTE | 2024-06-03 19:23 | MHC.CARE ---
Pt evaluated by the CARE Team and is an [facility] bedsearch. Referral faxed to [facility]-- Marixa from [facility] confirms that referral was received and will be reviewed. CARE Team to follo-up on the status of this referral. Pt is not on a section 12A-- Pt may discharge if he so chooses or begins to escalate.
[2024-06-04 06:23] VITALS: BP 157/89; PULSE 72; RESP 17; TEMP 36.8; O2SAT 100
--- NOTE | 2024-06-04 07:29 | PC.NURSE ---
Care of Pt assumed at change of shift. Pt is currently awake and eating breakfast. NAD noted at this time.
[2024-06-04 08:47] VITALS: BP 154/84
[2024-06-04] MEDS: cloNIDine HCL 0.1 MG TABLET PO (08:47)
[2024-06-04 08:49] VITALS: BP 154/84; PULSE 95; RESP 18; TEMP 37.1; O2SAT 100
--- NOTE | 2024-06-04 09:27 | PC.NURSE ---
During AM med pass, Pt requests to be started on Methadone. Chart reviewed and noted Pt seen by [facility] yesterday but no Tx initiated as Pt was not in withdrawal. Pt is still a inpatient bed search at this time. COWS this AM = 7; VSS research development manager contacted via [facility] for possible initiation of Methadone; awaiting response and Pt aware.
[2024-06-04 10:41] VITALS: BP 154/84; PULSE 95; RESP 18; TEMP 37.1; O2SAT 100
== END 2024-06-04 10:47 | disposition home or self-care (01) ==
PROVIDERS: Physician Assistant; Emergency Provider Emergency Medicine; PCP Internal Medicine
DX: R45.851 Suicidal ideations (principal); F11.10 Opioid abuse, uncomplicated; R94.31 Abnormal electrocardiogram [ECG] [EKG]; F14.10 Cocaine abuse, uncomplicated; Z51.81 Encounter for therapeutic drug level monitoring; Z79.899 Other long term (current) drug therapy
CPT/HCPCS: 36415; 80053; 80143; 80179; 80307; 81003; 85025; 93005; 99285; S9485

== ENCOUNTER → 2024-06-03 14:43 | Outpatient (BNV) | payer MEDICAID, SELFPAY | PROVIDERS: Emergency Provider Emergency Medicine; PCP Internal Medicine; Visit Provider Internal Medicine Cardiovascular Disease | DX: Z13.6 Encounter for screening for cardiovascular disorders (principal) | CPT/HCPCS: 93010 ==

== ENCOUNTER 2024-06-15 20:41 | Emergency (ER) | payer MEDICAID, SELFPAY ==
[2024-06-15 20:43] VITALS: BP 147/93; PULSE 124; RESP 16; TEMP 36.8; O2SAT 97; BMI 36.6
--- NOTE | 2024-06-15 20:43 | ED.PSYCH ---
HPI - Psych General Chief Complaint: Psychiatric Symptoms Stated Complaint: crisis eval Time Seen by Provider: 06/15/24 21:19 Source: patient Mode of arrival: ambulatory Limitations: no limitations History of Present Illness ED Provider: Danii Narvaez NP HPI Narrative: Patient is a 48-year-old male who presents emergency department for evaluation of suicidal ideations with a plan to shoot himself in the head with a gun, endorsing that he has access to fire arms. He denies any homicidal ideations. He does admit to recreational drug usage has been using fentanyl lasts IV use of tenderness prior to arrival to emergency department he is not interested in any assistance with detox, when asked whether he is using any other recreational drugs he is not provide me a direct answer. He denies any alcohol usage. He denies any homicidal ideations. He denies any physical complaints at this time. Related Data Home Medications ?Medication ?Instructions ?Recorded ?Confirmed clonazepam 0.5 mg tablet 0.5 mg PO DAILY PRN anxiety attack 06/02/24 06/02/24 quetiapine 100 mg tablet 100 mg PO BEDTIME PRN insomnia 06/02/24 06/03/24 hydroxyzine HCl 25 mg tablet 25 mg PO Q6H PRN mild pain 06/03/24 06/03/24 Previous Rx's ?Medication ?Instructions ?Recorded clonidine HCl 0.1 mg tablet See Rx Instructions .Route 05/04/24 .COMPLEX 30 days #90 tabs Allergies Allergy/AdvReac Type Severity Reaction Status Date / Time No Known Allergies Allergy Verified 06/15/24 20:46 [No Known Allergies*] Review of Systems Review of Systems: Yes all other systems are reviewed and are negative [facility] Past Medical History Attestation statement: The following information was validated with the patient. Source: old records reviewed Medical History Tachycardia Elevated troponin Hypermagnesemia KATHYA (acute kidney injury) Schizoaffective disorder, depressive type Suicidal ideation Polysubstance abuse Opioid use disorder Polysubstance abuse NSTEMI (non-ST elevated myocardial infarction) PTSD (post-traumatic stress disorder) Cocaine use disorder Polysubstance use disorder Social History Social History Household Members: None Household Members Other:: dog, Melvin Housing: Apartment Do you presently have visiting nurse or other home services: No Unable to assess alcohol history related to: Unknown Alcohol intake: never Patient Tobacco Use Status: Never used Tobacco Smoked in Last 30 Days: Yes e-Cigarette/Vaping Use: Never Used Second Hand Smoke Exposure: No Use of substances other than those prescribed or required for medical reasons: Yes Substance Use Type: Heroin and IV Drugs Substance Use Frequency: Daily Advance Directives: No Advance Directives Information Provided: Yes Do you have a plan to hurt others: No Plan service: No Sexual orientation: Straight/Heterosexual Physical Exam Vital Signs: Vital Signs: Last Vital Signs Temp 98.7 F 06/15/24 23:07 Pulse 92 06/15/24 23:07 Resp 16 06/15/24 23:07 BP 119/75 06/15/24 23:07 Pulse Ox 98 06/15/24 23:07 O2 Del Method Room Air 06/15/24 23:07 BMI result Body Mass Index 36.6 Appearance: Alert.?Oriented to person, place and time. No acute distress.?Normal affect. Eyes: Pupils equal, round and reactive to light.? ENT: Pharynx normal.?? Neck: Normal inspection.? Neck supple.?? CVS: Heart sounds normal. Tachycardic? Pulses normal.?? Respiratory: No respiratory distress.? Lung sounds clear to auscultation bilaterally?? Abdomen: Soft and non-tender. Normoactive bowel sounds. Skin: Skin warm and dry.? Normal skin color.? Extremities: No lower extremity edema.? Neuro: Moves all extremities spontaneously. Sensation intact bilaterally. CN II-XII intact. No focal neuro deficits. Ambulates with normal steady gait. Course Course Course Narrative: This is a rapid medical exam performed by Surinder Bruce NP: Additional HPI, ROS, PE not included below will be deferred to primary provider. Patient is a 48-year-old male with history of substance use disorder, schizoaffective disorder, PTSD presenting with complaint of depression and suicidal ideation, plan to shoot himself in the head. When asked if he has access to firearms he states of course I do, this is [place]. Denies homicidal ideation. States he is withdrawing from fentanyl, last injected 10 mins prior to arrival, declining assistance with detox. Plan: med clearance, then CARE team eval Reevaluation(s) Reevaluation #1: 06/16/2024 patient is requesting discharge, he has no SI no HI, RN was present with me he is stating that in he does not want to harm himself he is stating that he is feeling safe and wants to go home Time: 07:33 Medications Administered Discontinued Medications Generic Name Dose Route Start Last Admin Trade Name Nicol PRN Reason Stop Dose Admin Diphenhydramine HCl 25 mg 06/16/24 00:10 06/16/24 00:19 Diphenhydramine Hcl 25 Mg Capsule PO 06/16/24 00:11 25 mg ONCE ONE Administration Medical Decision Making Medical Decision Making MDM Narrative: Patient is a 48-year-old male with past medical history of polysubstance use disorder, PTSD, schizoaffective disorder, NSTEMI who presents emergency department for evaluation suicidal ideations with a plan as per HPI. He arrived to emergency department initially tachycardic with a pulse of 124, once calmed down with decreased anxiety pulse down to 92. His physical examination is benign and he offers no physical complaints at this time. Serum labs to be obtained including toxicology testing for medical clearance and will refer to care team for safe disposition planning. Differential Diagnosis Differential Diagnoses: The differential diagnosis associated with the presentation includes (See narrative above and below for further detail) Admission/Observation Consideration of admission/observation: Escalation of care including admission/observation considered Patient is being observed in the Emergency Department for depression and suicidal ideations. Observation time was started at 21:45 on 06/15/2024.?The patient is currently stable and non-toxic appearing. Observation is being initiated in the Emergency Department to allow time to help differentiate if the patient's suicidal ideation is due to Substance Induced Mood Disorder and Anxiety versus Major Depressive Disorder, Bipolar Melita, Bipolar Depression, and Schizophrenia. The patient will receive frequent psychiatric assessments from the provider as well as from nursing staff. The patient will also be monitored for the need of PRN agitation medications such as Haldol, Ativan, and Benadryl. Consult Healthcare Provider Management of the patient was discussed with: Behavioral Health Provider (CARE team) Lab Data [facility] Lab Attestation statement: I reviewed the patient's lab results. CBC is without leukocytosis, has a mild anemia that does not meet transfusion criteria, no thrombocytopenia. No electrolyte derangement. No KATHYA. LFTs overall unremarkable. Urinalysis without evidence of infection. Urine toxicology positive for opiates, methadone, fentanyl, cocaine. Alcohol level nondetectable. Viral serologies are negative. 06/15/24 21:55 06/15/24 21:31 Labs: Lab Results 06/15/24 06/15/24 06/15/24 Range/Units 21:04 21:30 21:31 WBC (4.8-10.8) X10*3/uL RBC (4.60-5.80) X10*6/uL Hgb (14.0-18.0) g/dl Hct (42.0-52.0) % MCV (80.0-98.0) fL MCH (27.0-33.0) pg MCHC (31.0-36.0) g/dl RDW (11.0-16.0) % Plt Count (160-400) X10*3/uL MPV (9.4-12.4) fL Immature Gran % (Auto) (0.0-0.4) % Neut % (Auto) (45-73) % Lymph % (Auto) (20-40) % [place] % (Auto) (2-11) % Eos % (Auto) (0-4) % Baso % (Auto) (0-2) % Lymph # (Auto) (1.2-4.9) X10*3/uL [place] # (Auto) (0.1-1.2) X10*3/uL Eos # (Auto) (0.0-0.4) X10*3/uL Baso # (Auto) (0.0-0.2) X10*3/uL Abs Immat Gran (auto) (0.00-0.03) X10*3/uL Absolute Neuts (auto) (2.0-8.3) x10*3/uL Absolute Nucleated RBC (0.0-0.012) X10*3/uL Nucleated RBC % (auto) (0.0-0.2) /100WBC Sodium 139 (135-145) mmol/L Potassium 4.0 (3.3-5.1) mmol/L Chloride 103 (96-108) mmol/L Carbon Dioxide 26 (22-29) mmol/L Anion Gap 14 (12-20) BUN 23 H (9-16) mg/dL Creatinine 1.08 (0.5-1.4) mg/dL Estim Creat Clear Calc 80.8 Estimated GFR > 60 Random Glucose 99 (60-115) mg/dL Calcium 9.4 (8.4-10.2) mg/dL Total Bilirubin 0.3 (0.0-1.0) mg/dL AST 39 H (5-37) U/L ALT 33 (0-40) U/L Alkaline Phosphatase 79 (39-117) U/L Total Protein 8.0 (6.5-8.0) g/dL Albumin 4.5 (3.5-5.0) g/dL Urine Color Dark Yellow Urine Appearance Clear Urine pH 5.5 (5.0-9.0) Ur Specific [place] >= 1.030 H (1.005-1.025) Urine Protein 30 (1+) H (Neg-Trace) mg/dL Urine Glucose (UA) Negative (Negative) mg/dL Urine Ketones 15 (Negative) mg/dL Urine Blood Negative (Negative) Urine Nitrite Negative (Negative) Ur Leukocyte Esterase Negative (Negative) Urine RBC 0-2 (0-2) /HPF Urine WBC 0-5 (0-5) /HPF Ur Squamous Epith Cells 0-2 (0-2) /HPF Urine Bacteria None Seen (None Seen) Hyaline Casts 3-5 (0-2) /LPF Urine Opiates Screen POSITIVE H (Not Detect) Ur Buprenorphine Scrn Not Detected (Not Detect) ng/mL Ur Oxycodone Screen Not Detected (Not Detect) ng/mL Urine Methadone Screen Positive H (Not Detect) ng/mL Urine Fentanyl Screen POSITIVE H (Not Detect) Ur Barbiturates Screen Not Detected (Not Detect) Ur Phencyclidine Scrn Not Detected (Not Detect) Ur Amphetamines Screen Not Detected (Not Detect) U Benzodiazepines Scrn Not Detected (Not Detect) Urine Cocaine Screen POSITIVE H (Not Detect) U Marijuana (THC) Screen Not Detected (Not Detect) Ethyl Alcohol < 10 mg/dL Influenza Type A (PCR) NEGATIVE (Negative) Influenza Type B (PCR) NEGATIVE (Negative) RSV RNA Qual (PCR) NEGATIVE (Negative) SARS-CoV-2 RNA (RT-PCR) NEGATIVE (Negative) 04/21/25 Range/Units 21:55 WBC 5.8 (4.8-10.8) X10*3/uL RBC 4.74 (4.60-5.80) X10*6/uL Hgb 12.6 L (14.0-18.0) g/dl Hct 38.3 L (42.0-52.0) % MCV 80.8 (80.0-98.0) fL MCH 26.6 L (27.0-33.0) pg MCHC 32.9 (31.0-36.0) g/dl RDW 14.3 (11.0-16.0) % Plt Count 255 (160-400) X10*3/uL MPV 8.6 L (9.4-12.4) fL Immature Gran % (Auto) 0.2 (0.0-0.4) % Neut % (Auto) 69.2 (45-73) % Lymph % (Auto) 15.7 L (20-40) % [place] % (Auto) 14.4 H (2-11) % Eos % (Auto) 0.3 (0-4) % Baso % (Auto) 0.2 (0-2) % Lymph # (Auto) 0.9 L (1.2-4.9) X10*3/uL [place] # (Auto) 0.8 (0.1-1.2) X10*3/uL Eos # (Auto) 0.0 (0.0-0.4) X10*3/uL Baso # (Auto) 0.0 (0.0-0.2) X10*3/uL Abs Immat Gran (auto) 0.01 (0.00-0.03) X10*3/uL Absolute Neuts (auto) 4.0 (2.0-8.3) x10*3/uL Absolute Nucleated RBC 0.000 (0.0-0.012) X10*3/uL Nucleated RBC % (auto) 0.0 (0.0-0.2) /100WBC Sodium (135-145) mmol/L Potassium (3.3-5.1) mmol/L Chloride (96-108) mmol/L Carbon Dioxide (22-29) mmol/L Anion Gap (12-20) BUN (9-16) mg/dL Creatinine (0.5-1.4) mg/dL Estim Creat Clear Calc Estimated GFR Random Glucose (60-115) mg/dL Calcium (8.4-10.2) mg/dL Total Bilirubin (0.0-1.0) mg/dL AST (5-37) U/L ALT (0-40) U/L Alkaline Phosphatase (39-117) U/L Total Protein (6.5-8.0) g/dL Albumin (3.5-5.0) g/dL Urine Color Urine Appearance Urine pH (5.0-9.0) Ur Specific [place] (1.005-1.025) Urine Protein (Neg-Trace) mg/dL Urine Glucose (UA) (Negative) mg/dL Urine Ketones (Negative) mg/dL Urine Blood (Negative) Urine Nitrite (Negative) Ur Leukocyte Esterase (Negative) Urine RBC (0-2) /HPF Urine WBC (0-5) /HPF Ur Squamous Epith Cells (0-2) /HPF Urine Bacteria (None Seen) Hyaline Casts (0-2) /LPF Urine Opiates Screen (Not Detect) Ur Buprenorphine Scrn (Not Detect) ng/mL Ur Oxycodone Screen (Not Detect) ng/mL Urine Methadone Screen (Not Detect) ng/mL Urine Fentanyl Screen (Not Detect) Ur Barbiturates Screen (Not Detect) Ur Phencyclidine Scrn (Not Detect) Ur Amphetamines Screen (Not Detect) U Benzodiazepines Scrn (Not Detect) Urine Cocaine Screen (Not Detect) U Marijuana (THC) Screen (Not Detect) Ethyl Alcohol mg/dL Influenza Type A (PCR) (Negative) Influenza Type B (PCR) (Negative) RSV RNA Qual (PCR) (Negative) SARS-CoV-2 RNA (RT-PCR) (Negative) External Record Review External record reviewed: Outpatient record Chronic Conditions Patient?s care impacted by: Other (See narrative above) Discharge Plan Discharge Clinical Impression: Depression Qualifiers: Depression Type: major depressive disorder Major depression recurrence: single episode Active/Remission status: in full remission Qualified Code(s): F32.5 - Major depressive disorder, single episode, in full remission Patient Disposition: Home, Self-Care Instructions: Depression (DC) Additional Instructions: You are telling us that you are not suicidal, you are requesting discharge, you are welcome to come back if you feel worse Prescriptions: No Action clonazepam 0.5 mg tablet 0.5 mg PO DAILY PRN (Reason: anxiety attack) quetiapine 100 mg tablet 100 mg PO BEDTIME PRN (Reason: insomnia) clonidine HCl 0.1 mg tablet See Rx Instructions .ROUTE .COMPLEX 30 Days Qty: 90 0RF Rx Instructions: take 1 tab in the morning and 1 at bedtime; may take 1 tab daily as needed for anxiety hydroxyzine HCl 25 mg tablet 25 mg PO Q6H PRN (Reason: mild pain) Interventions: Ward-Suicide Risk Severity Scale Last Done: 06/15/24 22:43 Print Language: Swazi
[2024-06-15 21:40] LABS: Appearance Urine Clear; Color Urine Dark Yellow; Glucose Urine UA Negative (Negative); Leukocyte Esterase Urine Negative (Negative); Nitrite Urine Negative (Negative); PH 5.5 (5.0-9.0); Specific Gravity - Urine >= 1.030 (1.005-1.025); UMIC TRIGGER UACC YES; Urine Blood Negative (Negative); Urine Ketones 15 mg/dL (Negative); Urine Protein 30 (1+) mg/dL (Neg-Trace)
[2024-06-15 21:48] LABS: Influenza A PCR NEGATIVE (Negative); Influenza B PCR NEGATIVE (Negative); Resp Syncy Virus RNA Qual PCR NEGATIVE (Negative); SARS COV2 PCR INHOUSE NEGATIVE (Negative)
[2024-06-15 21:52] LABS: Amphetamine Screen Urine Not Detected (Not Detect); Barbiturates, Urine Not Detected (Not Detect); Benzodiazepines Screen Urine Not Detected (Not Detect); Buprenorphine Scr Not Detected (Not Detect); Cannabinoid Screen Urine Not Detected (Not Detect); Cocaine Screen Urine POSITIVE (Not Detect); Fentanyl, urine POSITIVE (Not Detect); Methadone Screen, Urine Positive (Not Detect); Opiate Screen Urine POSITIVE (Not Detect); Oxycodone Screen Urine Not Detected (Not Detect); Phencyclidine Screen Urine Not Detected (Not Detect)
[2024-06-15 21:56] LABS: Albumin Level 4.5 g/dL (3.5-5.0); Anion Gap 14 (12-20); Bilirubin Total 0.3 mg/dL (0.0-1.0); Blood Urea Nitrogen 23 mg/dL (9-16); Calcium 9.4 mg/dL (8.4-10.2); Carbon Dioxide 26 mmol/L (22-29); Chloride 103 mmol/L (96-108); Creatinine Clr Calc Pharmacy 80.8; Estimated Glomerular Filt Rate > 60; Glucose Random 99 mg/dL (60-115); Sodium 139 mmol/L (135-145)
[2024-06-15 21:57] LABS: Alkaline Phosphatase 79 U/L (39-117); Aspartate Amino Transferase 39 U/L (5-37); Ethanol < 10 mg/dL
[2024-06-15 21:58] LABS: Bacteria Urine None Seen (None Seen); RBC Urine 0-2 /HPF (0-2); Squamous Epithelial Cell Urine 0-2 /HPF (0-2); WBC Urine 0-5 /HPF (0-5)
[2024-06-15 22:00] LABS: Basophils Percent Auto 0.2 % (0-2); Eosinophils Percent Auto 0.3 % (0-4); Hematocrit 38.3 % (42.0-52.0); Hemoglobin 12.6 g/dl (14.0-18.0); Imm Gran Abs Auto 0.01 X10*3/uL (0.00-0.03); Imm Gran Pct Auto 0.2 % (0.0-0.4); Lymphocytes Absolute Auto 0.9 X10*3/uL (1.2-4.9); Lymphocytes Percent Auto 15.7 % (20-40); Mean Corpuscular HGB Conc 32.9 g/dl (31.0-36.0); Mean Corpuscular Hemoglobin 26.6 pg (27.0-33.0); Mean Corpuscular Volume 80.8 fL (80.0-98.0); Mean Platelet Volume 8.6 fL (9.4-12.4); Monocytes Absolute Auto 0.8 X10*3/uL (0.1-1.2); Monocytes Percent Auto 14.4 % (2-11); Neutrophils Percent Auto 69.2 % (45-73); Platelet Count 255 X10*3/uL (160-400); Red Blood Count 4.74 X10*6/uL (4.60-5.80); Red Cell Distribution Width 14.3 % (11.0-16.0); White Blood Count 5.8 X10*3/uL (4.8-10.8)
[2024-06-15 22:02] LABS: MANUAL DIFF FLAG NO
[2024-06-15 22:11] LABS: Alanine Aminotransferase 33 U/L (0-40)
[2024-06-15 23:07] VITALS: BP 119/75; PULSE 92; RESP 16; TEMP 37.1; O2SAT 98
[2024-06-16] MEDS: diphenhydrAMINE HCL 25 MG CAPSULE PO (00:19)
--- NOTE | 2024-06-16 05:51 | PC.NURSE ---
pt slept well throughout the night. remained calm throughout shift, refusing vitals this morning because he would like to sleep. Pt resting quietly in stretcher in no notable distress. 1:[address]
--- NOTE | 2024-06-16 06:49 | MHC.CARE ---
Pt meets the criteria for DUAL DX TX. Section 12a in chart. Provider in agreement.
--- NOTE | 2024-06-16 07:33 | PC.NURSE ---
Pt becoming aggressive stating I want to get the fuck out of here, ya'll not helping me Attempted to deescalate however pt just requesting to speak with MD. CARE team called, spoke to Neelima who states pt is okay to leave if okay with MD. Dr Peraza to bedside for assessment and pt denying SI and states Im not going to harm myself. Plan to d/c
--- NOTE | 2024-06-16 07:36 | MHC.CARE ---
Per charge nurse Pt is becoming agitated and requesting to discharge. Dr. Peraza spoke with Pt who denied SI and requested to D/C. Pt will be discharged by the provider and no longer be a dual DX bed search at this time.
[2024-06-16 07:41] VITALS: BP 119/75; PULSE 92; RESP 16; TEMP 37.1; O2SAT 98
== END 2024-06-16 07:41 | disposition home or self-care (01) ==
PROVIDERS: Registered Nurse Emergency; Emergency Provider Emergency Medicine Emergency Medical Services; PCP Internal Medicine
DX: R45.851 Suicidal ideations (principal); F32.5 Major depressive disorder, single episode, in full remission; Z51.81 Encounter for therapeutic drug level monitoring; Z79.899 Other long term (current) drug therapy; Z03.818 Encounter for observation for suspected exposure to other biological agents ruled out
CPT/HCPCS: 0241U; 80053; 80307; 81001; 85025; 99285; S9485

== ENCOUNTER 2024-06-20 17:27 | Emergency (ER) | payer MEDICAID, SELFPAY ==
--- NOTE | 2024-06-20 17:30 | ED_ITS ---
HPI - General Adult General Chief complaint: Psychiatric Symptoms Stated complaint: psych eval,drug use Time Seen by Provider: 06/20/24 18:20 History of Present Illness ED Provider: Dr. Vargas HPI narrative: 48 y/o M patient; PMH substance use disorder, schizoaffective disorder, PTSD; presents from home reporting he used recreational drugs (fentanyl) prior to arrival. He denies suicidal or homicidal ideation. He denies medical complaints. Related Data Home Medications ?Medication ?Instructions ?Recorded ?Confirmed clonazepam 0.5 mg tablet 0.5 mg PO DAILY PRN anxiety attack 06/02/24 06/02/24 quetiapine 100 mg tablet 100 mg PO BEDTIME PRN insomnia 06/02/24 06/03/24 hydroxyzine HCl 25 mg tablet 25 mg PO Q6H PRN mild pain 06/03/24 06/03/24 Previous Rx's ?Medication ?Instructions ?Recorded clonidine HCl 0.1 mg tablet See Rx Instructions .Route 05/04/24 .COMPLEX 30 days #90 tabs Allergies Allergy/AdvReac Type Severity Reaction Status Date / Time No Known Allergies Allergy Verified 06/20/24 17:32 [No Known Allergies*] Review of Systems 2 Review of Systems: Yes all other systems are reviewed and are negative PMFSH Past Medical History Attestation statement: The following information was validated with the patient. Source: old records reviewed Medical History Tachycardia Elevated troponin Hypermagnesemia KATHYA (acute kidney injury) Schizoaffective disorder, depressive type Suicidal ideation Polysubstance abuse Opioid use disorder Polysubstance abuse NSTEMI (non-ST elevated myocardial infarction) PTSD (post-traumatic stress disorder) Cocaine use disorder Polysubstance use disorder Social History Social History Household Members: None Household Members Other:: dog, Melvin Housing: Apartment Do you presently have visiting nurse or other home services: No Unable to assess alcohol history related to: Unknown Alcohol intake: never Patient Tobacco Use Status: Never used Tobacco e-Cigarette/Vaping Use: Never Used Second Hand Smoke Exposure: No Substance Use Type: Heroin and IV Drugs Advance Directives: No Advance Directives Information Provided: No service: No Sexual orientation: Straight/Heterosexual Physical Exam ED Vital Signs: Vital Signs - 24 hr 06/20/24 17:31 06/20/24 18:27 06/20/24 20:39 Temperature 98.3 F 98.1 F Pulse Rate 74 69 75 Respiratory Rate 18 16 14 Blood Pressure 155/90 H 125/75 119/72 Pulse Oximetry 97 99 98 Oxygen Delivery Method Room Air Room Air Room Air BMI result Body Mass Index 31.6 Patient is afebrile and hemodynamically stable. Const General: cooperative and no acute distress HENMT Head: Yes normal to inspection and Yes atraumatic Eyes General: appearance normal, both eyes and all related structures Pupils: Equal, round and reactive pupils present EOM: EOMs intact bilaterally Neck Neck: Yes normal visual inspection, Yes full ROM, Yes supple and No tender Chest Chest palpation & inspection: normal inspection of the chest and normal palpation of entire chest wall Resp Effort & Inspection: normal respiratory effort, able to speak in complete sentences, no cough and no respiratory distress Auscultation: clear to auscultation bilaterally Cardio Rhythm: regular rhythm Peripheral pulses: Peripheral pulses 2+ throughout GI Inspection: Yes normal to inspection, No Abdominal wall edema and No distended Palpation (GI): Soft to palpation, not firm, nontender, no guarding and not rigid Auscultation: normal bowel sounds Back/Spine/Pelvis Back: No back tenderness Neuro Cranial nerves: Yes Equal, round and reactive pupils present Course Course Course Narrative: RME, this is a rapid medical exam performed by Mike Perea please refer to primary provider for complete H&P- 48 year old male presents for evaluation of depression, substance abuse. He reports he occassionally has thoughts of harming himself. Plan for medical clearance and care team evaluation. He admits to using a bag of fentanyl prior to arrival Reevaluation(s) Reevaluation #1: Patient is afebrile and hemodynamically stable. Reviewed work up ordered in triage. No leukocytosis. Mildly elevated AST, consistent with prior. Utox positive for opiates, methadone, fentanyl, and cocaine. Alcohol negative. Patient observed in the emergency department for over 4 hours. He is able to ambulate with a steady gait. Plan: Discharge to home with PCP and out-patient psychiatry follow up Return precautions given Medical Decision Making Lab Data 06/20/24 17:45 06/20/24 17:45 Labs: Lab Results 06/20/24 06/20/24 Range/Units 17:45 17:48 WBC 7.6 (4.8-10.8) X10*3/uL RBC 4.50 L (4.60-5.80) X10*6/uL Hgb 11.9 L (14.0-18.0) g/dl Hct 37.0 L (42.0-52.0) % MCV 82.2 (80.0-98.0) fL MCH 26.4 L (27.0-33.0) pg MCHC 32.2 (31.0-36.0) g/dl RDW 14.2 (11.0-16.0) % Plt Count 278 (160-400) X10*3/uL MPV 8.7 L (9.4-12.4) fL Immature Gran % (Auto) 0.4 (0.0-0.4) % Neut % (Auto) 78.6 H (45-73) % Lymph % (Auto) 9.6 L (20-40) % [place] % (Auto) 10.2 (2-11) % Eos % (Auto) 0.7 (0-4) % Baso % (Auto) 0.5 (0-2) % Lymph # (Auto) 0.7 L (1.2-4.9) X10*3/uL [place] # (Auto) 0.8 (0.1-1.2) X10*3/uL Eos # (Auto) 0.1 (0.0-0.4) X10*3/uL Baso # (Auto) 0.0 (0.0-0.2) X10*3/uL Abs Immat Gran (auto) 0.03 (0.00-0.03) X10*3/uL Absolute Neuts (auto) 6.0 (2.0-8.3) x10*3/uL Absolute Nucleated RBC 0.000 (0.0-0.012) X10*3/uL Nucleated RBC % (auto) 0.0 (0.0-0.2) /100WBC Sodium 144 (135-145) mmol/L Potassium 4.6 (3.3-5.1) mmol/L Chloride 107 (96-108) mmol/L Carbon Dioxide 29 (22-29) mmol/L Anion Gap 13 (12-20) BUN 25 H (9-16) mg/dL Creatinine 1.11 (0.5-1.4) mg/dL Estim Creat Clear Calc 75.7 Estimated GFR > 60 Random Glucose 89 (60-115) mg/dL Calcium 9.8 (8.4-10.2) mg/dL Total Bilirubin 0.4 (0.0-1.0) mg/dL AST 43 H (5-37) U/L ALT 27 (0-40) U/L Alkaline Phosphatase 75 (39-117) U/L Total Protein 7.7 (6.5-8.0) g/dL Albumin 4.3 (3.5-5.0) g/dL Salicylates < 5.0 L (15-30) mg/dL Urine Opiates Screen POSITIVE H (Not Detect) Ur Buprenorphine Scrn Not Detected (Not Detect) ng/mL Ur Oxycodone Screen Not Detected (Not Detect) ng/mL Urine Methadone Screen Positive H (Not Detect) ng/mL Urine Fentanyl Screen POSITIVE H (Not Detect) Acetaminophen < 3 (<30) mcg/mL Ur Barbiturates Screen Not Detected (Not Detect) Ur Phencyclidine Scrn Not Detected (Not Detect) Ur Amphetamines Screen Not Detected (Not Detect) U Benzodiazepines Scrn Not Detected (Not Detect) Urine Cocaine Screen POSITIVE H (Not Detect) U Marijuana (THC) Screen Not Detected (Not Detect) Ethyl Alcohol < 10 mg/dL Independent Interpretation I performed an independent interpretation of an: EKG Interpretation: NSR 63BPM with normal intervals, no ischemic changes. Discharge Plan Discharge Clinical Impression: Substance use disorder Patient Disposition: Home, Self-Care Instructions: Polysubstance Abuse (ED) Additional Instructions: Please follow up with your primary doctor and out-patient psych providers to discuss your recent emergency department visit. Prescriptions: No Action clonazepam 0.5 mg tablet 0.5 mg PO DAILY PRN (Reason: anxiety attack) quetiapine 100 mg tablet 100 mg PO BEDTIME PRN (Reason: insomnia) clonidine HCl 0.1 mg tablet See Rx Instructions .ROUTE .COMPLEX 30 Days Qty: 90 0RF Rx Instructions: take 1 tab in the morning and 1 at bedtime; may take 1 tab daily as needed for anxiety hydroxyzine HCl 25 mg tablet 25 mg PO Q6H PRN (Reason: mild pain) Print Language: Tuvaluan
[2024-06-20 17:31] VITALS: BP 155/90; PULSE 74; RESP 18; TEMP 36.8; O2SAT 97; BMI 31.6
--- NOTE | 2024-06-20 17:31 | ECG_ITS ---
Test Reason : POLYSUBSTANCE Blood Pressure : */* mmHG Vent. Rate : 63 BPM Atrial Rate : 63 BPM P-R Int : 150 ms QRS Dur : 98 ms QT Int : 386 ms P-R-T Axes : 43 -26 20 degrees QTcB Int : 395 ms Normal sinus rhythm with sinus arrhythmia Incomplete right bundle branch block Moderate voltage criteria for LVH, may be normal variant ( R in aVL , Sergio product ) Borderline ECG When compared with ECG of 03-Jun-2024 15:27, Incomplete right bundle branch block is now Present Referred By: Lenard Perea Electronically Signed By: RUBEN EUCEDA
[2024-06-20 17:52] LABS: MANUAL DIFF FLAG NO
[2024-06-20 17:55] LABS: Basophils Percent Auto 0.5 % (0-2); Eosinophils Absolute Auto 0.1 X10*3/uL (0.0-0.4); Eosinophils Percent Auto 0.7 % (0-4); Hemoglobin 11.9 g/dl (14.0-18.0); Imm Gran Abs Auto 0.03 X10*3/uL (0.00-0.03); Imm Gran Pct Auto 0.4 % (0.0-0.4); Lymphocytes Absolute Auto 0.7 X10*3/uL (1.2-4.9); Lymphocytes Percent Auto 9.6 % (20-40); Mean Corpuscular HGB Conc 32.2 g/dl (31.0-36.0); Mean Corpuscular Hemoglobin 26.4 pg (27.0-33.0); Mean Corpuscular Volume 82.2 fL (80.0-98.0); Mean Platelet Volume 8.7 fL (9.4-12.4); Monocytes Absolute Auto 0.8 X10*3/uL (0.1-1.2); Monocytes Percent Auto 10.2 % (2-11); Neutrophils Percent Auto 78.6 % (45-73); Platelet Count 278 X10*3/uL (160-400); Red Cell Distribution Width 14.2 % (11.0-16.0); White Blood Count 7.6 X10*3/uL (4.8-10.8)
[2024-06-20 18:03] LABS: Amphetamine Screen Urine Not Detected (Not Detect); Barbiturates, Urine Not Detected (Not Detect); Benzodiazepines Screen Urine Not Detected (Not Detect); Buprenorphine Scr Not Detected (Not Detect); Cannabinoid Screen Urine Not Detected (Not Detect); Cocaine Screen Urine POSITIVE (Not Detect); Fentanyl, urine POSITIVE (Not Detect); Methadone Screen, Urine Positive (Not Detect); Opiate Screen Urine POSITIVE (Not Detect); Oxycodone Screen Urine Not Detected (Not Detect); Phencyclidine Screen Urine Not Detected (Not Detect)
[2024-06-20 18:07] LABS: Alanine Aminotransferase 27 U/L (0-40); Albumin Level 4.3 g/dL (3.5-5.0); Alkaline Phosphatase 75 U/L (39-117); Anion Gap 13 (12-20); Aspartate Amino Transferase 43 U/L (5-37); Bilirubin Total 0.4 mg/dL (0.0-1.0); Blood Urea Nitrogen 25 mg/dL (9-16); Calcium 9.8 mg/dL (8.4-10.2); Carbon Dioxide 29 mmol/L (22-29); Chloride 107 mmol/L (96-108); Creatinine Clr Calc Pharmacy 75.7; Estimated Glomerular Filt Rate > 60; Ethanol < 10 mg/dL; Glucose Random 89 mg/dL (60-115); Potassium 4.6 mmol/L (3.3-5.1); Sodium 144 mmol/L (135-145); Total Protein 7.7 g/dL (6.5-8.0)
[2024-06-20 18:27] VITALS: BP 125/75; PULSE 69; RESP 16; TEMP 36.7; O2SAT 99
[2024-06-20 18:47] LABS: Acetaminophen LAB < 3 mcg/mL (<30); Salicylate < 5.0 mg/dL (15-30)
--- OUTSIDE RECORDS SUMMARY | 2024-06-20 19:45 | XMS_ITS | Encounter Summary ---
Author Organization [employer] Address [address] [facility] [address] [place] [address] Care Team Providers Care Customs Director Name Role Phone Lara Headley MD Primary Care Provider + Reason for Visit * Reason Comments Transition Of Care (Tcm) Encounter Details Date Type Department Care Team ([facility] st Contact Info) Description 06/16/2024 Patient Outreach [facility] MED [facility] PEDS [address], [place] [phone] Lara Headley MD [address] [place] [address] Transition Of Care (Tcm) Social History Tobacco [...] as of this encounter Progress Notes * Christiana East RN - 06/16/2024 1:28 PM EDT Transition of Care Note Sudhir Morales is going through a recent transition of care. * Tita Randall RN - 06/16/2024 1:28 PM EDT Images from the original note were not included. [facility] Type of Visit: Emergency Department Date of Admission/Visit: 06/15/24 Date of Discharge: 06/16/24 Facility: [facility] Diagnosis: Crisis Eval Disposition: Discharged Home Follow-Up Actions Follow-Up Needed: Provider appointment Follow-Up Outcome: Disconnected Phone Initial Contact Date: 06/16/24 Patient Contacted: Unable to leave message Review Flowsheet More data exists [facility] Transition of Care Documentation Type of Visit Date of Admission/Visit Date of Discharge Facility Diagnosis Disposition 03/02/2024 8:41 AM Emergency Department 02/27/2024 9:31pm 02/28/2024 2:35am [facility] Headache, unspecified, Essential (primary) hypertension, Chest pain, unspecified, Cocaine abuse, uncomplicated, Poisoning by fentanyl or fentanyl analogs, accidental (unintentional), initial encounter, hypertension Discharged Home 03/02/2024 8:43 AM Emergency Department 03/02/2024 - [facility] PSYCH EVAL,SI,CRACK ARISTEO USE FROM PD STATION - 03/09/2024 10:06 AM Emergency Department 03/07/2024 3:17 am 03/07/2024 8:02 am [facility] CP Discharged Home 03/09/2024 11:00 AM Emergency Department 03/07/2024 03/07/2024 [facility] Atypical chest pain Discharged Home 03/12/2024 9:55 AM Emergency Department 03/10/2024 6:49am 03/10/2024 11:53 am [facility] SI Discharged Home 04/06/2024 9:42 AM Emergency Department 04/05/2024 - [facility] CRISIS Admitted 04/24/2024 10:38 AM Emergency Department 04/24/2024 04/24/2024 [facility] Hypertension DischargedHome 05/08/2024 9:34 AM Emergency Department 05/07/2024 05/07/2024 [facility] Other chest pain, Hypertension Discharged Home 05/08/2024 10:35 AM Hospital Admission 04/27/2024 05/04/2024 [facility] Schizoaffective disorder, depressive type , PTSD ,Opioid use disorder , Cocaine use disorder Discharged Home 05/25/2024 12:34 PM Hospital Admission 05/22/2024 05/25/2024 [facility] mood disorder Discharged Home 06/02/2024 9:20 AM Emergency Department 06/01/2024 - [facility] Crisis Eval Discharged Home 06/16/2024 1:28 PM Emergency Department 06/15/2024 06/16/2024 [facility] Crisis Eval Discharged Home Recent Visits Date Type Provider Dept 06/03/24 Office Visit Christian Arreguin MD [facility] Medicine 05/27/24 Office Visit Christian Arreguin MD [facility] Medicine 05/20/24 Office Visit Christian Arreguin MD [facility] Medicine 05/07/24 Office Visit Dalia El MD [facility] Medicine 05/06/24 Office Visit Christian Arreguin MD [facility] Medicine 04/23/24 Office Visit Dalia El MD [facility] Medicine 04/02/24 Office Visit Dalia El MD [facility] Medicine 03/12/24 Office Visit Dalia El MD [facility] Medicine 03/05/24 Office Visit Lara Headley MD [facility] Medicine 02/10/24 Office Visit Dalia El MD [facility] Medicine Showing recent visits within past 365 days with a meds authorizing provider and meeting all other requirements Future Appointments No visits were found meeting these conditions. Showing future appointments within next 150 days with a meds authorizing provider and meeting all other requirements TC placed to pt. For status check at mom's number (Not on HIPAA), however received message the number you are calling has been restricted or is unavailable. Pt. To f/up at appt. 06/25/24 or sooner prn documented in this encounter Plan of Treatment Not on file documented as of this encounter Goals Goal [...] documented as of this encounter Care Teams Customs Director Relationship Specialty Start Date End Date Lara Headley MD [address] [place] [phone] PCP - General Family Medicine 08/31/16 documented as of this encounter
--- OUTSIDE RECORDS SUMMARY | 2024-06-20 19:45 | XMS_ITS | Encounter Summary ---
Author Organization [employer] Address [address] [facility] 7t [place] [address] Care Team Providers Care Informatics Educator Name Role Phone Lara Headley MD Primary Care Provider + Encounter Details Date Type Department Care Team (Late st Contact Info) Description 06/15/2024 Orders Only GENERIC EXTERNAL DATA DEPARTMENT Provider, [...] as of this encounter Plan of Treatment Not on file documented as of this encounter Goals Goal Patient Goal Type Associated Problems Recent Progress Patient-Stated? Author Take buprenorphine as prescribed General Yes Chanel Thrasher, EMILY Keep your medical appointments Lifestyle No Richard Woods, EMILY documented as of this encounter Procedures Procedure Name Priority Date/Time Associated Diagnosis Comments CBC WITH AUTO DIFFERENTIAL Routine 06/15/2024 9:55 PM EDT ETHANOL Routine 06/15/2024 9:31 PM EDT DRUG MONITOR, PANEL 1, SCREEN, URINE Routine 06/15/2024 9:31 PM EDT COMPREHENSIVE METABOLIC PANEL Routine 06/15/2024 9:31 PM EDT URINALYSIS, COMPLETE, WITH REFLEX TO CULTURE Routine 06/15/2024 9:30 PM EDT SARS COV2/INFLUENZA A/B AND RSV RNA QL NAAT Routine 06/15/2024 9:04 PM EDT documented in this encounter Results * (ABNORMAL) CBC auto differential (06/15/2024 9:55 PM EDT) White Blood Count 5.8 4.8 - 10.8 X10*3/uL [facility] Red Blood Count 4.74 4.60 - 5.80 X10*6/uL [facility] Hemoglobin 12.6(L) 14.0 - 18.0 g/dl [facility] Hematocrit 38.3(L) 42.0 - 52.0 % [facility] Mean Corpuscular Volume 80.8 80.0 - 98.0 fL [facility] Mean Corpuscular Hemoglobin 26.6(L) 27.0 - 33.0 pg [facility] Mean Corpuscular HGB Conc 32.9 31.0 - 36.0 g/dl [facility] Red Cell Distribution Width 14.3 11.0 - 16.0 % [facility] Platelet Count 255 160 - 400 X10*3/uL [facility] Mean Platelet Volume 8.6(L) 9.4 - 12.4 fL [facility] Neutrophils Percent Auto 69.2 45 - 73 % [facility] Imm Gran Pct Auto 0.2 0.0 - 0.4 % [facility] Lymphocytes Percent Auto 15.7(L) 20 - 40 % [facility] Monocytes Percent Auto 14.4(H) 2 - 11 % [facility] Eosinophils Percent Auto 0.3 0 - 4 % [facility] Basophils Percent Auto 0.2 0 - 2 % [facility] NRBC Pct Auto 0.0 0.0 - 0.2 /100WBC [facility] Neutrophils Absolute Auto 4.0 2.0 - 8.3 x10*3/uL [facility] Imm Gran Abs Auto 0.01 0.00 - 0.03 X10*3/uL [facility] Lymphocytes Absolute Auto 0.9(L) 1.2 - 4.9 X10*3/uL [facility] Monocytes Absolute Auto 0.8 0.1 - 1.2 X10*3/uL [facility] Eosinophils Absolute Auto 0.0 0.0 - 0.4 X10*3/uL [facility] Basophils Absolute Auto 0.0 0.0 - 0.2 X10*3/uL [facility] NRBC Abs Auto 0.000 0.0 - 0.012 X10*3/uL [facility] 06/15/2024 9:55 PM EDT 06/15/2024 9:58 PM EDT Generic External Data Provider LAB BLOOD ORDERAB LES Edited Result - Final Performing Organization Address [facility]/ZIP Co de Phone Number [facility] [address] [place] [phone] * Ethanol (06/15/2024 9:31 PM EDT) Pathologist [facility] ETHANOL (MG/DL) IN SER/PLAS <10 mg/dL [facility] Comment:Serum/plasma ethanol results are to be used formedical/treatment purposes only. 06/15/2024 9:31 PM EDT 06/15/2024 9:34 PM EDT Generic External Data Provider LAB BLOOD ORDERAB LES Final Result Performing Organization Address [facility]/ZIP Co de Phone Number [facility] [address] [place] [phone] * (ABNORMAL) Comprehensive Metabolic Panel (06/15/2024 9:31 PM EDT) Sodium 139 135 - 145 mmol/L [facility] Potassium 4.0 3.3 - 5.1 mmol/L [facility] Chloride 103 96 - 108 mmol/L [facility] Carbon Dioxide 26 22 - 29 mmol/L [facility] Anion Gap 14 12 - 20 [facility] Urea Nitrogen (BUN) 23(H) 9 - 16 mg/dL [facility] Creatinine, Serum 1.08 0.5 - 1.4 mg/dL [facility] Creatinine Clr Calc Pharmacy 80.8 [facility] Comment:eGFR (calculated fro m the MDRD study equation) and eCrCl(calculated from the Cockcroft-Gault equation) are based ondifferent parameters and may not yield comparable results.If eCrCl result is absurd, please check patient'sheight/weight. Estimated Glomerular Filt Rate >60 [facility] Comment:Chronic Kidney Disea se: Estimated GFR < 60 mL/min/1.29w2Skhfoj Kidney Disease: Estimated GFR < 15 mL/min/1.73m2 Glucose 99 60 - 115 mg/dL [facility] Calcium 9.4 8.4 - 10.2 mg/dL [facility] Bilirubin, Total 0.3 0.0 - 1.0 mg/dL [facility] Aspartate Amino Transferase 39(H) 5 - 37 U/L [facility] Alanine Aminotransferase 33 0 - 40 U/L [facility] Total Protein 8.0 6.5 - 8.0 g/dL [facility] Albumin Level 4.5 3.5 - 5.0 g/dL [facility] Alkaline Phosphatase 79 39 - 117 U/L [facility] 06/15/2024 9:31 PM EDT 06/15/2024 9:34 PM EDT us Generic External Data Provider LAB BLOOD ORDERAB LES Final Result [facility] [address] [place] [phone] * (ABNORMAL) Drug Monitoring, Panel 1, Screen, Urine (06/15/2024 9:31 PM EDT) Opiate Screen Urine POSITIVE(A) Not Detect [facility] Comment:Opiate cut-off is 30 0 ng/mL.Positive results are unconfirmed and should not be used fornon-medical purposes. Barbiturates, Urine Not Detected Not Detect [facility] Comment:Barbiturate cut-off is 200 ng/mL.Positive results are unconfirmed and should not be used fornon-medical purposes. Phencyclidine Screen Urine Not Detected Not Detect [facility] Comment:Phencyclidine cut-of f is 25 ng/mL.Positive results are unconfirmed and should not be used fornon-medical purposes. Amphetamine Screen Urine Not Detected Not Detect [facility] Comment:Amphetamine cut-off is 1000 ng/mL.Positive results are unconfirmed and should not be used fornon-medical purposes. Benzodiazepines Screen Urine Not Detected Not Detect [facility] Comment:Benzodiazepine cut-o ff is 200 ng/mL.Positive results are unconfirmed and should not be used fornon-medical purposes. Cocaine Screen Urine POSITIVE(A) Not Detect [facility] Comment:Cocaine cut-off is 3 00 ng/mL.Positive results are unconfirmed and should not be used fornon-medical purposes. Cannabinoid Screen Urine Not Detected Not Detect [facility] Comment:Cannabinoid cut-off is 50 ng/mL.Positive results are unconfirmed and should not be used fornon-medical purposes. Methadone Screen, Urine Positive(A) Not Detect ng/mL [facility] Comment:Methadone cut-off is 300 ng/mL.Positive results are unconfirmed and should not be used fornon-medical purposes. FENTANYL URINE POSITIVE(A) Not Detect [facility] Comment:Fentanyl cut-off is 1 ng/mL.Positive results are unconfirmed and should not be used fornon-medical purposes. Oxycodone Urine Screen Not Detected Not Detect ng/mL [facility] Comment:Oxycodone cut-off is 100 ng/mL.Positive results are unconfirmed and should not be used fornon-medical purposes. Buprenorphine Screen Not Detected Not Detect ng/mL [facility] Comment:Buprenorphine cut-of f is 5 ng/mL.Positive results are unconfirmed and should not be used fornon-medical purposes. 06/15/2024 9:31 PM EDT 06/15/2024 9:34 PM EDT us Generic External Data Provider LAB URINE ORDERAB LES Final Result [facility] [address] [place] [phone] * (ABNORMAL) Urinalysis, Complete, with Reflex to Culture (06/15/2024 9:30 PM EDT) Color Urine Dark Yellow [facility] Appearance Urine Clear [facility] PH 5.5 5.0 - 9.0 [facility] Glucose Urine UA Negative Negative mg/dL [facility] Urine Blood Negative Negative [facility] Specific [place] - Urine >=1.030(H) 1.005 - 1.025 [facility] Urine Protein 30 (1+)(A) Neg-Trace mg/dL [facility] Urine Ketones 15 Negative mg/dL [facility] Nitrite Urine Negative Negative [facility] Leukocyte Esterase Urine Negative Negative [facility] RBC Urine 0-2 0 - 2 /HPF [facility] Urine WBC 0-5 0 - 5 /HPF [facility] Urine Squamous Epithelial Cell 0-2 0 - 2 /HPF [facility] Urine Bacteria None Seen None Seen [facility] Hyaline Casts, Urine 3-5 0 - 2 /LPF [facility] 06/15/2024 9:30 PM EDT 06/15/2024 9:34 PM EDT Narrative [facility] - 06/15/2024 10:02 PM EDT Urine, Clean Catch us Generic External Data Provider LAB URINE ORDERAB LES Final Result [facility] [address] [place] [phone] * SARS-CoV-2 RNA, Influenza A/B, and RSV RNA, Ql NAAT (06/15/2024 9:04 PM EDT) Influenza A PCR NEGATIVE Negative [facility] Influenza B PCR NEGATIVE Negative [facility] Resp Syncy Virus RNA Qual PCR NEGATIVE Negative [facility] SARS COV2 PCR NEGATIVE Negative [facility] Comment:All test results mus t be correlated with clinical findings.Negative results do not preclude SARS-CoV2, influenza Avirus, influenza B virus and/or RSV infectionand should not be used as the sole basis for treatment orother patient management decisions. Negative results must becombined with clinical observations, patient history, andepidemiological information.This test has not been evaluated for monitoring treatment ofinfection.This test has been authorized by the FDA under an EmergencyUse Authorization (EUA) for use by authorized laboratories.Testing performed on the [employer] GeneXpert utilizingreal-time RT-PCR.All SARS CoV2 and positive influenza A/B results arereported to [facility]. 06/15/2024 9:04 PM EDT 06/15/2024 9:08 PM EDT us Generic External Data Provider LAB MICROBIOLOGY - GENERAL ORDERABLES Final Result [facility] [address] [place] [phone] documented in this encounter Visit Diagnoses Not on filedocumented in this encounter Additional Health Concerns Assessment Noted Time PHQ-9 Depression Total Score: 3 04/23/19 25 11:02 AM EST documented as of this encounter Care Teams Informatics Educator Relationship Specialty Start Date End Date Lara Headley MD [address] [place] [phone] PCP - General Family Medicine 08/31/16 documented as of this encounter
--- OUTSIDE RECORDS SUMMARY | 2024-06-20 19:45 | XMS_ITS | Encounter Summary ---
Author Organization [employer] Address [address] [facility] [address] [place] [address] Care Team Providers Care Architecture Instructor Name Role Phone Lara Headley MD Primary Care Provider + Reason for Visit * Reason Comments Med Refill Encounter Details Date Type Department Care Team ([facility] st Contact Info) Description 12/28/2022 Refill [facility] [address] [place], [place] [phone] Dalia El MD [address] [place], [place] [phone] Social History Tobacco Use Types Packs/Day Years [...] on file documented as of this encounter Visit Diagnoses Not on filedocumented in this encounter Additional Health Concerns Assessment Noted Time PHQ-9 Depression Total Score: 4 09/04/19 23 12:55 PM EDT documented as of this encounter Care Teams Architecture Instructor Relationship Specialty Start Date End Date Lara Headley MD [address] [place] [phone] PCP - General Family Medicine 08/31/16 documented as of this encounter
--- OUTSIDE RECORDS SUMMARY | 2024-06-20 19:45 | XMS_ITS | Encounter Summary ---
Author Organization [employer] Address [address] [facility] [address] [place] [address] Care Team Providers Care Material Planner Name Role Phone Lara Headley MD Primary Care Provider + Reason for Visit * Reason Onset Date Comments Med Refill 05/27/2024 Encounter Details Date Type Department Care Team (Late st Contact Info) Description 05/27/2024 Refill [facility] [address] [place] [address] Chanel Thrasher RN Social History Tobacco Use [...] documented as of this encounter Care Teams Material Planner Relationship Specialty Start Date End Date Lara Headley MD [address] [place] [phone] PCP - General Family Medicine 08/31/16 documented as of this encounter
--- OUTSIDE RECORDS SUMMARY | 2024-06-20 19:46 | XMS_ITS | Clinical Summary ---
Author Organization [employer] Address [address] [facility] [address] [place] [address] Care Team Providers Care Clerk Analyst Name Role Phone Lara Headley MD Primary Care Provider + Allergies No known active allergies Medications * This document contains information received from the source organization and may not represent a complete record from that organization. Blood Pressure Monitor kitIndications:P rimary hypertension Use as directed 3x/week 1 kit Active Menthol, Topical Analgesic, (Icy Hot) 5 % patch Apply to affected area 14 patch Active melatonin 5 MG tablet Take 2 tablets by mouth at bedtime. 024 Active acetaminophen (Tylenol) 500 MG tabletIndication s:Dental caries,Fractured dental jew without loss of material Take 1 tablet [...] per day for 7 days. 14 Film Active ammonium lactate (Lac-Hydrin) 12 % lotion [...] June 03, 2024. 14 Film 1 025 Active cloNIDine (Catapres) 0.1 MG tablet [...] of anxiety and addiction, reach out to literacy coach. Continue to FU with [facility] program. FU with me in 3-4 weeks. Moderate benzodiazepine use disorder 03/05/2024 Assessment & Plan (03/05/2024 11:22 AM EST): Chronically using Klonopin BID off the street, advised risk of overdose and being tainted with other drugs. Fractured dental jew without loss of mat erial 02/21/2024 KATHYA [...] 11:23 AM EST): Most likely related to group home uncontrolled HTN and heroin use. Advised to [...] of MH treatment, reach out to a literacy coach (he doesn't have one, he doesn't [...] EDT): Unclear if he;'s taking Wellbutrin, last shrimp picker was on 06/24 I called to fu with . I gave him [facility] info to reach out for an appt. He feels safe at home now and is able to reach out for safety. FU at next appt, needs to bring med bottles. Assessment & Plan (04/26/2023 3:25 PM EST): Pt probably has his anxiety exacerbated by methadone taper Counseled to discuss with literacy coach regarding holding off on methadone taper Start Wellbutrin 150 mg and fu at next visit Continue close fu with therapist Saúl Angeles, I will refer to to help him coordinate referral to a psych Rx in the group home. Assessment & Plan (12/25/2022 9:50 AM EDT): [...] off methadone. Advised to reach out to literacy coach, discussed with him re early signs [...] out for safety, and to work with literacy coach - f/u in 3 months Assessment & Plan (04/26/2023 9:29 AM EST): Cutting down on methadone, is probably having increased anxiety due to this/?withdrawal Sx Counseled to slow down on taper and fu w literacy coach We discussed importance of not using recreational substances Assessment & Plan (10/03/2022 12:04 PM EDT): Currently on methadone 30mg continues to live in intermediate where he has literacy coach and support groups Assessment & Plan (09/03/2022 1:34 PM EDT): Currently on methadone 30mg in [facility] Methadone [facility] Continue residential recovery program in [facility] Counseled to avoid alcohol, drugs, currently sober FU PRN Encounters * This document contains information received from the source organization and may not represent a complete record from that organization. Date Type Department Care Team Description 06/20/2024 Orders Only GENERIC EXTERNAL DATA DEPARTMENT Provider, Generic External Data 06/19/2024 Patient Outreach [facility] [address] [place] [address] Lara Headley MD 06/18/2024 Patient Outreach [address] [address] Lara Headley MD 06/16/2024 Patient Outreach [facility] [address] [place] [address] Lara Headley MD Transition Of Care (Tcm) 06/15/2024 Orders Only GENERIC EXTERNAL DATA DEPARTMENT Provider, Generic External Data 06/12/2024 Patient Outreach [address] [address] Lara Headley MD Care Coordination ([facility] Timothy Troncoso, TC #2 initial outreach_lv) 06/11/[address] [address] Lara Headley MD No Show 06/10/2024 Patient Outreach [address] [address] Lara Headley MD Care Coordination ([facility]/FRANCISCO Troncoso, Chart review ) 06/10/[address] [address] Richard Woods RN Recovery Supports 06/10/2024 Travel 06/09/2024 Patient Outreach [address] [address] Lara Headley MD Care Coordination ([facility]W Gregorio Hernández initial outreach_lvm ) 06/08/[address] [address] Lara Headley MD Chart prep 06/03/2024 9:00 AM EDT Office Visit [address] [address] Christian Arreguin MD Opioid dependence, uncomplicated (CMS/HCC) (Primary Dx) 06/03/2024 Orders Only GENERIC EXTERNAL DATA DEPARTMENT Provider, Generic External Data 06/03/2024 Travel 06/02/2024 Patient Outreach [address] [address] Lara Headley MD Transition Of Care (Tcm) 06/01/2024 Orders Only GENERIC EXTERNAL DATA DEPARTMENT Provider, Generic External Data 05/28/[address] [address] Chanel Thrasher, EMILY Opioid dependence, uncomplicated (CMS/HCC) 05/27/2024 9:00 AM EDT Office Visit [address] [address] Christian Arreguin MD Opioid type dependence, continuous (CMS/HCC) (Primary Dx) 05/27/[address] [address] Chanel Thrasher, RN 05/27/2024 Travel 05/25/2024 Patient Outreach [address] [address] Lara Headley MD Transition Of Care (Tcm) (HDF scheduled) 05/25/2024 Patient Outreach [facility] [address] [place] [address] Lara Headley MD 05/25/2024 Patient Outreach [address] [address] Lara Headley MD 05/22/2024 Orders Only GENERIC EXTERNAL DATA DEPARTMENT Provider, Generic External Data 05/21/2024 Patient Outreach [address] [address] Armand Dykes RC Recovery Supports 05/21/[address] [address] Lara Headley MD No Show 05/20/2024 9:00 AM EDT Office Visit [address] [address] Christian Arreguin MD Opioid dependence, uncomplicated (CMS/HCC) (Primary Dx) 05/20/2024 Refill [facility] [address] [place] [address] Chanel Thrasher RN Opioid dependence, uncomplicated (CMS/HCC) 05/20/2024 Travel 05/18/2024 Patient Outreach [address] [address] Jack Tavares Recovery Supports 05/18/[address] [address] Lara Headley MD No Show 05/15/2024 Refill [facility] [address] [place] [address] Chanel Thrasher RN Opioid dependence, uncomplicated (CMS/HCC) 05/15/2024 Patient Outreach [address] [address] Lara Headley MD Care Coordination (Outreach) 05/14/2024 Patient Outreach [address] [address] Evaristo Canchola Recovery Supports 05/13/2024 9:00 AM EDT Clinical Support [address] [address] Chanel Thrasher RN Opioid dependence, uncomplicated (CMS/HCC) (Primary Dx) 05/13/2024 Travel 05/12/2024 Patient Outreach [address] [address] Evaristo Canchola Recovery Supports 05/12/2024 Patient Outreach [address] [address] Jack Tavares RC Recovery Supports 05/12/2024 Travel 05/11/2024 Patient Outreach [address] [address] Jack Tavares Recovery Supports 05/11/[address] [address] Chanel Thrasher RN Opioid dependence, uncomplicated (CMS/HCC) 05/08/2024 Patient Outreach [address] [phone] Lara Headley MD Care Coordination (CHW outreach for SDOH-patient declined to participate ) 05/08/2024 Patient Outreach [address] [address] Lara Headley MD Transition Of Care (Tcm) (HDF- scheduled , SDOH is positive tobacco screening is negative) 05/08/2024 Population Health Risk Score [facility] () Department [address] [place] [phone] Provider, Population Health Generic 05/08/2024 Patient Outreach [address] [address] Lara Headley MD Transition Of Care (Tcm) 05/08/2024 Patient Outreach [facility] [address] [place], [place] [phone] Lara Headley MD Care Coordination (Outreach) 05/07/2024 2:30 PM EDT Office Visit [address] [address] Dalia El MD Opioid dependence, uncomplicated (CMS/HCC) (Primary Dx) 05/07/2024 Patient Outreach [address] [address] Jack Tavares Recovery Supports 05/07/2024 Patient Outreach [address] [address] Evaristo Canchola Recovery Supports 05/07/2024 Travel 05/06/2024 9:00 AM EDT Office Visit [facility] [address] [place] [address] Christian Arreguin MD Opioid dependence, uncomplicated (CMS/HCC) (Primary Dx) 05/06/2024 Travel 05/05/2024 Patient Outreach [address] [address] Evaristo Canchola Recovery Supports 05/05/2024 Refill [facility] [address] [place] [address] Dalia El MD Opioid dependence, uncomplicated (CMS/HCC) 05/04/2024 1:00 PM EDT Clinical Support [address] [address] Richard Woods RN Opioid dependence, uncomplicated (CMS/HCC) (Primary Dx) 05/04/2024 Patient Outreach [facility] [address] [place] [address] Lara Headley MD Care Coordination 05/04/2024 Patient Outreach [address] [address] Evaristo Canchola Recovery Supports 05/04/2024 Travel 05/04/2024 Refill [facility] [address] [place] [address] Richard Woods RN Opioid dependence, uncomplicated (CMS/HCC) 04/30/[address] [address] Lara Headley MD No Show 04/29/2024 Patient Outreach [facility] [address] [place] [address] Lara Headley MD Care Coordination (Outreach) 04/28/[address] [address] Lara Headley MD Chart prep 04/27/2024 Orders Only GENERIC EXTERNAL DATA DEPARTMENT Provider, Generic External Data 04/26/2024 Orders Only GENERIC EXTERNAL DATA DEPARTMENT Provider, Generic External Data 04/24/2024 Patient Outreach [address] [address] Lara Headley MD Transition Of Care (Tcm) 04/23/2024 2:45 PM EST Office Visit [facility] [address] [place] [address] Dalia El MD Opioid dependence, uncomplicated (CMS/HCC) (Primary Dx); Schizoaffective disorder, depressive type (CMS/HCC) 04/23/2024 Telephone [facility] [address] [place] [address] Lara Headley MD 04/23/2024 Refill [facility] [address] [place] [address] Dalia El MD Opioid dependence, uncomplicated (CMS/HCC) 04/23/2024 Travel 04/23/2024 Patient Outreach [address] [address] Sharif Rider Recovery Supports 04/20/2024 Patient Outreach [address] [address] Jack Tavares Recovery Supports 04/17/2024 Patient Outreach [address] [address] Sharif Rider Recovery Supports 04/16/2024 Patient Outreach [facility] [address] [place], [place] [phone] Lara Headley MD Care Coordination (Outreach/) 04/16/2024 Travel 04/06/2024 Patient Outreach [address] [address] Lara Headley MD Transition Of Care (Tcm) 04/05/2024 Orders Only GENERIC EXTERNAL DATA DEPARTMENT Provider, Generic External Data 04/02/2024 2:30 PM EST Office Visit [facility] [address] [place] [address] Dalia El MD Opioid type dependence, continuous (CMS/HCC) (Primary Dx) 04/02/2024 Refill [facility] [address] [place] [address] Richard Woods RN Opioid dependence, uncomplicated (CMS/HCC) 04/02/2024 Patient Outreach [facility] [address] [place] [address] Sharif Rider Recovery Supports 04/02/2024 Travel 04/01/2024 Telephone [facility] [address] [place] [address] Richard Woods RN 03/30/2024 Patient Outreach [facility] [address] [place] [address] Sharif Rider Recovery Supports 03/30/2024 Telephone [facility] [address] [place] [address] Lara Headley MD 03/30/2024 Refill [facility] [address] [place] [address] Richard Woods RN Opioid dependence, uncomplicated ([facility]) 03/27/2024 11:30 AM [facility] Clinical Support [facility] [place] [address] Richard Woods RN Opioid dependence, uncomplicated ([facility]) (Primary Dx) 03/27/2024 Travel 03/26/2024 Patient Outreach [facility] [address] [place], [place] [phone] Lara Headley MD Care Coordination (Outreach) 03/23/2024 Refill [facility] [address] [place] [address] Richard Woods RN Opioid dependence, uncomplicated ([facility]) 03/23/2024 Orders Only GENERIC EXTERNAL DATA DEPARTMENT [...] 03/05/2024 10:20 AM EST Plan of Treatment Health Maintenance Due Date Last Done Comments [...] Dental Prophylaxis 02/28/2023 08/27/2022 COVID-19 Vaccine ( season) 2023 02/23/2021, 09/19/2020 Dental X-Ray: Bitewings [...] DRUG MONITOR, PANEL 1, SCREEN, URINE Routine 06/20/2024 5:48 PM EDT ACETAMINOPHEN LEVEL Routine 06/20/2024 5 :45 PM EDT SALICYLATE Routine 06/20/2024 5:45 PM EDT ETHANOL Routine 06/20/2024 5:45 PM EDT COMPREHENSIVE METABOLIC PANEL Routine 06/20/2024 5:45 PM EDT CBC WITH AUTO DIFFERENTIAL Routine 06/20/2024 5:45 PM EDT CBC WITH AUTO DIFFERENTIAL Routine 06/15/2024 9:55 PM EDT ETHANOL Routine 06/15/2024 9:31 PM EDT COMPREHENSIVE METABOLIC PANEL Routine 06/15/2024 9:31 PM EDT DRUG MONITOR, PANEL 1, SCREEN, URINE Routine 06/15/2024 9:31 PM EDT URINALYSIS, COMPLETE, WITH REFLEX TO CULTURE Routine 06/15/2024 9:30 PM EDT SARS COV2/INFLUENZA A/B AND RSV RNA QL NAAT Routine 06/15/2024 9:04 PM EDT DRUG MONITOR, PANEL 1, SCREEN, URINE Routine 06/03/2024 3:48 PM EDT URINALYSIS WITH REFLEX MICROSCOPIC Routine 06/03/2024 3:48 PM EDT ACETAMINOPHEN LEVEL Routine 06/03/2024 2 :25 PM EDT SALICYLATE Routine 06/03/2024 2:25 PM EDT ETHANOL Routine 06/03/2024 2:25 PM EDT COMPREHENSIVE METABOLIC PANEL Routine 06/03/2024 2:25 PM EDT CBC WITH AUTO DIFFERENTIAL Routine 06/03/2024 2:25 PM EDT POCT RIN-14 URINE DRUG SCREEN Routine 06/03/2024 10:02 AM EDT Opioid dependence, uncomplicated ([facility]/HCC) DRUG MONITOR, PANEL 1, SCREEN, URINE Routine [...] SCREEN, URINE Routine 03/22/2024 9:50 AM EST BITEWING - SINGLE RADIOGRAPHIC IMAGE [...] (ABNORMAL) Drug Monitoring, Panel 1, Screen, Urine (06/20/2024 5:48 PM EDT) Only the most recent of8 resultswithin the time period is included. Opiate Screen Urine POSITIVE(A) Not Detect [facility] Comment:Opiate cut-off is 30 0 ng/mL.Positive results are unconfirmed and should not be used fornon-medical purposes. Barbiturates, Urine Not Detected Not Detect [facility] Comment:Barbiturate cut-off is 200 ng/mL.Positive results are unconfirmed and should not be used fornon-medical purposes. Phencyclidine Screen Urine Not Detected Not Detect [facility] Comment:Phencyclidine cut-of f is 25 ng/mL.Positive results are unconfirmed and should not be used fornon-medical purposes. Amphetamine Screen Urine Not Detected Not Detect [facility] Comment:Amphetamine cut-off is 1000 ng/mL.Positive results are unconfirmed and should not be used fornon-medical purposes. Benzodiazepines Screen Urine Not Detected Not Detect [facility] Comment:Benzodiazepine cut-o ff is 200 ng/mL.Positive results are unconfirmed and should not be used fornon-medical purposes. Cocaine Screen Urine POSITIVE(A) Not Detect [facility] Comment:Cocaine cut-off is 3 00 ng/mL.Positive results are unconfirmed and should not be used fornon-medical purposes. Cannabinoid Screen Urine Not Detected Not Detect [facility] Comment:Cannabinoid cut-off is 50 ng/mL.Positive results are unconfirmed and should not be used fornon-medical purposes. Methadone Screen, Urine Positive(A) Not Detect ng/mL [facility] Comment:Methadone cut-off is 300 ng/mL.Positive results are unconfirmed and should not be used fornon-medical purposes. FENTANYL URINE POSITIVE(A) Not Detect [facility] Comment:Fentanyl cut-off is 1 ng/mL.Positive results are unconfirmed and should not be used fornon-medical purposes. Oxycodone Urine Screen Not Detected Not Detect ng/mL [facility] Comment:Oxycodone cut-off is 100 ng/mL.Positive results are unconfirmed and should not be used fornon-medical purposes. Buprenorphine Screen Not Detected Not Detect ng/mL [facility] Comment:Buprenorphine cut-of f is 5 ng/mL.Positive results are unconfirmed and should not be used fornon-medical purposes. 06/20/2024 5:48 PM EDT 06/20/2024 5:51 PM EDT us Generic External Data Provider LAB URINE ORDERAB LES Final Result [facility] [address] [place] [address] [phone] * Ethanol (06/20/2024 5:45 PM EDT) Only the most recent of6 resultswithin the time period is included. ETHANOL (MG/DL) IN SER/PLAS <10 mg/dL [facility] Comment:Serum/plasma ethanol results are to be used formedical/treatment purposes only. 06/20/2024 5:45 PM EDT 06/20/2024 5:51 PM EDT us Generic External Data Provider LAB BLOOD ORDERAB LES Final Result [facility] [address] [place] [address] [phone] * (ABNORMAL) CBC auto differential (06/20/2024 5:45 PM EDT) Only the most recent of8 resultswithin the time period is included. White Blood Count 7.6 4.8 - 10.8 X10*3/uL [facility] Red Blood Count 4.50(L) 4.60 - 5.80 X10*6/uL [facility] Hemoglobin 11.9(L) 14.0 - 18.0 g/dl [facility] Hematocrit 37.0(L) 42.0 - 52.0 % [facility] Mean Corpuscular Volume 82.2 80.0 - 98.0 fL [facility] Mean Corpuscular Hemoglobin 26.4(L) 27.0 - 33.0 pg [facility] Mean Corpuscular HGB Conc 32.2 31.0 - 36.0 g/dl [facility] Red Cell Distribution Width 14.2 11.0 - 16.0 % [facility] Platelet Count 278 160 - 400 X10*3/uL [facility] Mean Platelet Volume 8.7(L) 9.4 - 12.4 fL [facility] Neutrophils Percent Auto 78.6(H) 45 - 73 % [facility] Imm Gran Pct Auto 0.4 0.0 - 0.4 % [facility] Lymphocytes Percent Auto 9.6(L) 20 - 40 % [facility] Monocytes Percent Auto 10.2 2 - 11 % [facility] Eosinophils Percent Auto 0.7 0 - 4 % [facility] Basophils Percent Auto 0.5 0 - 2 % [facility] NRBC Pct Auto 0.0 0.0 - 0.2 /100WBC [facility] Neutrophils Absolute Auto 6.0 2.0 - 8.3 x10*3/uL [facility] Imm Gran Abs Auto 0.03 0.00 - 0.03 X10*3/uL [facility] Lymphocytes Absolute Auto 0.7(L) 1.2 - 4.9 X10*3/uL [facility] Monocytes Absolute Auto 0.8 0.1 - 1.2 X10*3/uL [facility] Eosinophils Absolute Auto 0.1 0.0 - 0.4 X10*3/uL [facility] Basophils Absolute Auto 0.0 0.0 - 0.2 X10*3/uL [facility] NRBC Abs Auto 0.000 0.0 - 0.012 X10*3/uL [facility] 06/20/2024 5:45 PM EDT 06/20/2024 5:51 PM EDT Generic External Data Provider LAB BLOOD ORDERAB LES Final Result Performing Organization Address City/[facility]/ZIP Co de Phone Number [facility] [address] [place] [phone] * Acetaminophen level (06/20/2024 5:45 PM EDT) Only the most recent of4 resultswithin the time period is included. Acetaminophen LAB <3 <30 mcg/mL [facility] 06/20/2024 5:45 PM EDT 06/20/2024 5:51 PM EDT Generic External Data Provider LAB BLOOD ORDERAB LES Final Result Performing Organization Address City/[facility] Co de Phone Number [facility] [address] [place] [phone] * (ABNORMAL) Salicylate (06/20/2024 5:45 PM EDT) Only the most recent of4 resultswithin the time period is included. Salicylate <5.0(L) 15 - 30 mg/dL [facility] 06/20/2024 5:45 PM EDT 06/20/2024 5:51 PM EDT us Generic External Data Provider LAB BLOOD ORDERAB LES Final Result [facility] [address] [place] [phone] [phone] * (ABNORMAL) Comprehensive Metabolic Panel (06/20/2024 5:45 PM EDT) Only the most recent of8 resultswithin the time period is included. Sodium 144 135 - 145 mmol/L [facility] Potassium 4.6 3.3 - 5.1 mmol/L [facility] Chloride 107 96 - 108 mmol/L [facility] Carbon Dioxide 29 22 - 29 mmol/L [facility] Anion Gap 13 12 - 20 [facility] Urea Nitrogen (BUN) 25(H) 9 - 16 mg/dL [facility] Creatinine, Serum 1.11 0.5 - 1.4 mg/dL [facility] Creatinine Clr Calc Pharmacy 75.7 [facility] Comment:eGFR (calculated fro m the MDRD study equation) and eCrCl(calculated from the Cockcroft-Gault equation) are based ondifferent parameters and may not yield comparable results.If eCrCl result is absurd, please check patient'sheight/weight. Estimated Glomerular Filt Rate >60 [facility] Comment:Chronic Kidney Disea se: Estimated GFR < 60 mL/min/1.83b4Tokogp Kidney Disease: Estimated GFR < 15 mL/min/1.73m2 Glucose 89 60 - 115 mg/dL [facility] Calcium 9.8 8.4 - 10.2 mg/dL [facility] Bilirubin, Total 0.4 0.0 - 1.0 mg/dL [facility] Aspartate Amino Transferase 43(H) 5 - 37 U/L [facility] Alanine Aminotransferase 27 0 - 40 U/L [facility] Total Protein 7.7 6.5 - 8.0 g/dL [facility] Albumin Level 4.3 3.5 - 5.0 g/dL [facility] Alkaline Phosphatase 75 39 - 117 U/L [facility] 06/20/2024 5:45 PM EDT 06/20/2024 5:51 PM EDT us Generic External Data Provider LAB BLOOD ORDERAB LES Final Result Performing Organization Address City/[facility] Co de Phone Number [facility] [address] [place] [address] [phone] * (ABNORMAL) Urinalysis, Complete, with Reflex to Culture (06/15/2024 9:30 PM EDT) Color Urine Dark Yellow [facility] Appearance Urine Clear [facility] PH 5.5 5.0 - 9.0 [facility] Glucose Urine UA Negative Negative mg/dL [facility] Urine Blood Negative Negative [facility] Specific Happy - Urine >=1.030(H) 1.005 - 1.025 [facility] Urine Protein 30 (1+)(A) Neg-Trace mg/dL [facility] Urine Ketones 15 Negative mg/dL [facility] Nitrite Urine Negative Negative [facility] Leukocyte Esterase Urine Negative Negative [facility] RBC Urine 0-2 0 - 2 /HPF [facility] Urine WBC 0-5 0 - 5 /HPF [facility] Urine Squamous Epithelial Cell 0-2 0 - 2 /HPF [facility] Urine Bacteria None Seen None Seen [facility] Hyaline Casts, Urine 3-5 0 - 2 /LPF [facility] 06/15/2024 9:30 PM EDT 06/15/2024 9:34 PM EDT Narrative [facility] - 06/15/2024 10:02 PM EDT Urine, Clean Catch us Generic External Data Provider LAB URINE ORDERAB LES Final Result Performing Organization Address City/[facility]/ZIP Co de Phone Number [facility] [address] [place] [address] [phone] * SARS-CoV-2 RNA, Influenza A/B, and RSV RNA, Ql NAAT (06/15/2024 9:04 PM EDT) Influenza A PCR NEGATIVE Negative [facility] Influenza B PCR NEGATIVE Negative [facility] Resp Syncy Virus RNA Qual PCR NEGATIVE Negative [facility] SARS COV2 PCR NEGATIVE Negative [facility] Comment:All test results mus t [...] use by authorized laboratories.Testing performed on the [employer] GeneXpert utilizingreal-time RT-PCR.All SARS CoV2 and positive influenza A/B results arereported to [facility]. 06/15/2024 9:04 PM EDT 06/15/2024 9:08 PM EDT Generic External Data Provider LAB MICROBIOLOGY - GENERAL ORDERABLES Final Result Performing Organization Address [facility]/ZIP Co de Phone Number [facility] [address] [place] [phone] * Urinalysis w/reflex microscopic (06/03/2024 3:48 PM EDT) Only the most recent of4 resultswithin the time period is included. Color Urine Yellow [facility] Appearance Urine Clear [facility] PH 7.0 5.0 - 9.0 [facility] Glucose Urine UA Negative Negative mg/dL [facility] Urine Blood Negative Negative [facility] Specific Happy - Urine 1.020 1.005 - 1.025 [facility] Urine Protein Trace Neg-Trace mg/dL [facility] Urine Ketones Negative Negative mg/dL [facility] Nitrite Urine Negative Negative [facility] Leukocyte Esterase Urine Negative Negative [facility] 06/03/2024 3:48 PM EDT 06/03/2024 3:51 PM EDT Narrative [facility] - 06/03/2024 3:55 PM EDT [id number], Clean Catch Generic External Data Provider LAB URINE ORDERAB LES Final Result [facility] [address] [place] [address] [phone] * POCT RIN-14 Urine Drug Screen (06/03/2024 10:02 AM EDT) Only the most recent of9 resultswithin the [...] time period is included. Color Urine Yellow [facility] Appearance Urine Clear [facility] PH 6.0 5.0 - 9.0 [facility] Glucose Urine UA Negative Negative mg/dL [facility] Urine Blood Negative Negative [facility] Specific Happy - Urine >=1.030(H) 1.005 - 1.025 [facility] Urine Protein Negative Neg-Trace mg/dL [facility] Urine Ketones Trace Negative mg/dL [facility] Nitrite Urine Negative Negative [facility] Leukocyte Esterase Urine Negative Negative [facility] 06/01/2024 6:49 PM EDT 06/01/2024 6:54 PM EDT us Generic External Data Provider LAB URINE ORDERAB LES Final Result [facility] [address] [place] [phone] [phone] * COVID-19 ID NOW ([employer]) (06/01/2024 4:42 PM EDT) Only the most recent of2 resultswithin the time period is included. IDNOW SERIAL# [id number] [facility] COVID-19 TEST Negative Negative [facility] COVID-19 NOTE See Note [facility] Comment: Results are for the identification of SARS-CoV2 RNA. TheSARS-CoV2 RNA is generally detectable in respiratory samplesduring the acute phase of infection. Positive results areindicative of the presence of SARS-CoV-2 RNA; clinicalcorrelation with patient history and other diagnosticinformation is necessary to determine patient infectionstatus. Positive results do not rule out bacterial infectionor co- infection with other viruses.Testing facilities within the [facility] and itsterritories are required to report all [...] use by authorized laboratories.Testing performed on the [employer] ID NOW utilizing NAAT. 06/01/2024 4:42 PM EDT 06/01/2024 5:00 PM EDT Generic External Data Provider LAB MOLECULAR MARIANA GNOSTICS ORDERABLES Final Result Performing Organization Address [facility]/ZIP Co de Phone Number [facility] [address] [place] [address] [phone] * Magnesium (05/22/2024 9:40 AM EDT) Magnesium 2.0 1.6 - 2.6 mg/dL [facility] 05/22/2024 9:40 AM EDT 05/22/2024 9:49 AM EDT Generic External Data Provider LAB BLOOD ORDERAB LES Final Result Performing Organization Address [facility] de Phone Number [facility] [address] [place] [address] [phone] * [facility] (09/14/2022 11:14 AM EDT) Pathologist [facility] HIV AB/AG Nonreactive Nonreactive [facility] Comment:HIV-1 p24 Ag and/or HIV-1/HIV-2 Ab not detected.A test result that is nonreactive does not exclude thepossibility of exposure to or infection with HIV-1 and/orHIV-2. Nonreactive results in this assay for individualswith prior exposure to HIV-1 and/or HIV-2 may be due toantigen and antibody levels that are below the limit ofdetection of this assay.The [employer] HIV Ag/Ab Combo assay result andsupplemental assay results should be interpreted inconjunction with the patient's clinical presentation,history and other laboratory results. If the results areinconsistent with clinical evidence, additional testing issuggested to confirm the result. 09/14/2022 11:1 4 AM EDT 09/14/2022 2:37 PM EDT us Lara Headley MD LAB BLOOD ORDERABLES Fin al Result Performing Organization Address City/[facility]/ZIP Co de Phone Number [facility] [address] [place] [address] [phone] * Lipid Panel, Standard (09/14/2022 11:14 AM EDT) Triglycerides 85 mg/dL [facility] Comment:Desirable Triglyceri de: less than 150 mg/dLBorderline High Triglyceride 150-199 mg/dLHigh Triglyceride: 200-499 mg/dLVery High Triglyceride: greater than or equal to 5OO mg/dL Cholesterol 139 mg/dL [facility] Comment:Desirable Cholestero l: less than 200 mg/dLBorderline High Cholesterol: 200-239 mg/dLHigh Cholesterol: greater than 239 mg/dL LDL Cholesterol Calculated 79 mg/dl [facility] Comment:Desirable LDL: less than 100 mg/dLNear Optimal/Above Optimal LDL: 110- 129 mg/dLBorderline High LDL: 130-159 mg/dLHigh LDL: 160-189 mg/dLVery High LDL: greater than or equal to 190 mg/dL HDL Cholesterol 43 mg/dL [facility] Comment:Desirable HDL: great er than 40 mg/dL Note: This HDL assay may give artificially low results in patients with liver disease. 09/14/2022 11:1 4 AM EDT 09/14/2022 2:37 PM EDT us Lara Headley MD LAB BLOOD ORDERABLES Fin al Result Performing Organization Address City/[facility]/ZIP Co de Phone Number [facility] [address] [place] [address] [phone] from Last 3 Months or Most Recently Relevant to Health Maintenance Insurance [facility] C[place] AD[place] Care Teams Clerk Analyst Relationship Specialty Start Date End Date Lara Headley MD [address] [place] [phone] PCP - General Family Medicine 08/31/16
--- OUTSIDE RECORDS SUMMARY | 2024-06-20 19:46 | XMS_ITS ---
Author Organization [employer] Address [address] [facility] [address]t [place] [address] Care Team Providers Care Nurse Recruiter Name Role Phone Lara Headley MD Primary Care Provider + CHW Complex Status:Outreach In Progress (Enrolling) Start date:05/25/2024 Enrollment reason:ADT Feed Overview ED- Pt went to [facility] ED on 05/22/24. Please outreach pt Case Team Name Relationship Phone Timothy Troncoso (Responsible Staff) Continued Care and Services Coordination
--- OUTSIDE RECORDS SUMMARY | 2024-06-20 19:46 | XMS_ITS ---
Author Organization [employer] Address [address] [facility] [address] [place] [address] Care Team Providers Care Button And Buckle Maker Name Role Phone Lara Headley MD Primary Care Provider + CM Complex Status:Outreach In Progress (Enrolling) Start date:05/25/2024 Enrollment reason:ADT Feed Overview ED- Pt went to [facility] ED on 05/22/24. Case Team Name Relationship Phone Dalia Ruby RN Registered Nurse(Responsible S taff) Continued Care and Services Coordination
--- OUTSIDE RECORDS SUMMARY | 2024-06-20 19:46 | XMS_ITS | Encounter Summary ---
Author Organization [employer] Address [address] [facility] [address] [place] [address] Care Team Providers Care Timber Treating Tank Operator Name Role Phone Lara Headley MD Primary Care Provider + Encounter Details Date Type Department Care Team (Late st Contact Info) Description 06/18/2024 Patient Outreach [facility] [address] [place], [place] [phone] Lara Headley MD [address] [place], [place] [phone] Social History Tobacco Use Types Packs/Day Years [...] the past 12 months, has t he [employer], gas, oil or water company threatened to [...] as of this encounter Progress Notes * Timothy Troncoso - 06/18/2024 11:32 AM EDT CHW Timothy Troncoso placed outbound call to patient to introduce complex care program phone number disconnected. CHW will attempt again in 10 business days. documented in this encounter Plan of [...] documented as of this encounter Care Teams Timber Treating Tank Operator Relationship Specialty Start Date End Date Lara Headley MD [address] [place] [phone] PCP - General Family Medicine 08/31/16 documented as of this encounter
--- OUTSIDE RECORDS SUMMARY | 2024-06-20 19:46 | XMS_ITS | Encounter Summary ---
Author Organization [employer] Address [address] [facility] [address] [place] [address] Care Team Providers Care Audit Consultant Name Role Phone Lara Headley MD Primary Care Provider + Encounter Details Date Type Department Care Team (Late st Contact Info) Description 06/20/2024 Orders Only GENERIC EXTERNAL DATA [...] SCREEN, URINE Routine 06/20/2024 5:48 PM EDT ETHANOL Routine 06/20/2024 5:45 PM EDT CBC WITH AUTO DIFFERENTIAL Routine 06/20/2024 5:45 PM EDT ACETAMINOPHEN LEVEL Routine 06/20/2024 5 :45 PM EDT SALICYLATE Routine 06/20/2024 5:45 PM EDT COMPREHENSIVE METABOLIC PANEL Routine 06/20/2024 5:45 PM EDT documented in this encounter Results * (ABNORMAL) Drug Monitoring, Panel 1, Screen, Urine (06/20/2024 5:48 PM EDT) [facility] Opiate Screen Urine POSITIVE(A) Not Detect [facility] Comment:Opiate cut-off is 30 0 ng/mL.Positive results are unconfirmed and should not be used fornon-medical purposes. Barbiturates, Urine Not Detected Not Detect [facility] Comment:Barbiturate cut-off is 200 ng/mL.Positive results are unconfirmed and should not be used fornon-medical purposes. Phencyclidine Screen Urine Not Detected Not Detect [facility] Comment:Phencyclidine cut-of f is 25 ng/mL.Positive results are unconfirmed and should not be used fornon-medical purposes. Amphetamine Screen Urine Not Detected Not Detect [facility] Comment:Amphetamine cut-off is 1000 ng/mL.Positive results are unconfirmed and should not be used fornon-medical purposes. Benzodiazepines Screen Urine Not Detected Not Detect [facility] Comment:Benzodiazepine cut-o ff is 200 ng/mL.Positive results are unconfirmed and should not be used fornon-medical purposes. Cocaine Screen Urine POSITIVE(A) Not Detect [facility] Comment:Cocaine cut-off is 3 00 ng/mL.Positive results are unconfirmed and should not be used fornon-medical purposes. Cannabinoid Screen Urine Not Detected Not Detect [facility] Comment:Cannabinoid cut-off is 50 ng/mL.Positive results are unconfirmed and should not be used fornon-medical purposes. Methadone Screen, Urine Positive(A) Not Detect ng/mL [facility] Comment:Methadone cut-off is 300 ng/mL.Positive results are unconfirmed and should not be used fornon-medical purposes. FENTANYL URINE POSITIVE(A) Not Detect [facility] Comment:Fentanyl cut-off is 1 ng/mL.Positive results are unconfirmed and should not be used fornon-medical purposes. Oxycodone Urine Screen Not Detected Not Detect ng/mL [facility] Comment:Oxycodone cut-off is 100 ng/mL.Positive results are unconfirmed and should not be used fornon-medical purposes. Buprenorphine Screen Not Detected Not Detect ng/mL [facility] Comment:Buprenorphine cut-of f is 5 ng/mL.Positive results are unconfirmed and should not be used fornon-medical purposes. 06/20/2024 5:48 PM EDT 06/20/2024 5:51 PM EDT us Generic External Data Provider LAB URINE ORDERAB LES Final Result Performing Organization Address [facility] Co de Phone Number [facility] [address] [place] [phone] * Acetaminophen level (06/20/2024 5:45 PM EDT) Acetaminophen LAB <3 <30 mcg/mL [facility] 06/20/2024 5:45 PM EDT 06/20/2024 5:51 PM EDT Generic External Data Provider LAB BLOOD ORDERAB LES Final Result Performing Organization Address [facility] Co de Phone Number [facility] [address] [place] [phone] * (ABNORMAL) Salicylate (06/20/2024 5:45 PM EDT) Salicylate <5.0(L) 15 - 30 mg/dL [facility] 06/20/2024 5:45 PM EDT 06/20/2024 5:51 PM EDT Generic External Data Provider LAB BLOOD ORDERAB LES Final Result Performing Organization Address [facility] de Phone Number [facility] [address] [place] [phone] * Ethanol (06/20/2024 5:45 PM EDT) ETHANOL (MG/DL) IN SER/PLAS <10 mg/dL [facility] Comment:Serum/plasma ethanol results are to be used formedical/treatment purposes only. 06/20/2024 5:45 PM EDT 06/20/2024 5:51 PM EDT Generic External Data Provider LAB BLOOD ORDERAB LES Final Result Performing Organization Address [facility]/ZIP Co de Phone Number [facility] [address] [place], [place] [phone] * (ABNORMAL) Comprehensive Metabolic Panel (06/20/2024 5:45 PM EDT) Sodium 144 135 - 145 mmol/L [facility] Potassium 4.6 3.3 - 5.1 mmol/L [facility] Chloride 107 96 - 108 mmol/L [facility] Carbon Dioxide 29 22 - 29 mmol/L [facility] Anion Gap 13 12 - 20 [facility] Urea Nitrogen (BUN) 25(H) 9 - 16 mg/dL [facility] Creatinine, Serum 1.11 0.5 - 1.4 mg/dL [facility] Creatinine Clr Calc Pharmacy 75.7 [facility] Comment:eGFR (calculated fro m the MDRD study equation) and eCrCl(calculated from the Cockcroft-Gault equation) are based ondifferent parameters and may not yield comparable results.If eCrCl result is absurd, please check patient'sheight/weight. Estimated Glomerular Filt Rate >60 [facility] Comment:Chronic Kidney Disea se: Estimated GFR < 60 mL/min/1.19d3Kbqupi Kidney Disease: Estimated GFR < 15 mL/min/1.73m2 Glucose 89 60 - 115 mg/dL [facility] Calcium 9.8 8.4 - 10.2 mg/dL [facility] Bilirubin, Total 0.4 0.0 - 1.0 mg/dL [facility] Aspartate Amino Transferase 43(H) 5 - 37 U/L [facility] Alanine Aminotransferase 27 0 - 40 U/L [facility] Total Protein 7.7 6.5 - 8.0 g/dL [facility] Albumin Level 4.3 3.5 - 5.0 g/dL [facility] Alkaline Phosphatase 75 39 - 117 U/L [facility] 06/20/2024 5:45 PM EDT 06/20/2024 5:51 PM EDT us Generic External Data Provider LAB BLOOD ORDERAB LES Final Result [facility] [address] [place], [place] [phone] * (ABNORMAL) CBC auto differential (06/20/2024 5:45 PM EDT) White Blood Count 7.6 4.8 - 10.8 X10*3/uL [facility] Red Blood Count 4.50(L) 4.60 - 5.80 X10*6/uL [facility] Hemoglobin 11.9(L) 14.0 - 18.0 g/dl [facility] Hematocrit 37.0(L) 42.0 - 52.0 % [facility] Mean Corpuscular Volume 82.2 80.0 - 98.0 fL [facility] Mean Corpuscular Hemoglobin 26.4(L) 27.0 - 33.0 pg [facility] Mean Corpuscular HGB Conc 32.2 31.0 - 36.0 g/dl [facility] Red Cell Distribution Width 14.2 11.0 - 16.0 % [facility] Platelet Count 278 160 - 400 X10*3/uL [facility] Mean Platelet Volume 8.7(L) 9.4 - 12.4 fL [facility] Neutrophils Percent Auto 78.6(H) 45 - 73 % [facility] Imm Gran Pct Auto 0.4 0.0 - 0.4 % [facility] Lymphocytes Percent Auto 9.6(L) 20 - 40 % [facility] Monocytes Percent Auto 10.2 2 - 11 % [facility] Eosinophils Percent Auto 0.7 0 - 4 % [facility] Basophils Percent Auto 0.5 0 - 2 % [facility] NRBC Pct Auto 0.0 0.0 - 0.2 /100WBC [facility] Neutrophils Absolute Auto 6.0 2.0 - 8.3 x10*3/uL [facility] Imm Gran Abs Auto 0.03 0.00 - 0.03 X10*3/uL [facility] Lymphocytes Absolute Auto 0.7(L) 1.2 - 4.9 X10*3/uL [facility] Monocytes Absolute Auto 0.8 0.1 - 1.2 X10*3/uL [facility] Eosinophils Absolute Auto 0.1 0.0 - 0.4 X10*3/uL [facility] Basophils Absolute Auto 0.0 0.0 - 0.2 X10*3/uL [facility] NRBC Abs Auto 0.000 0.0 - 0.012 X10*3/uL [facility] 06/20/2024 5:45 PM EDT 06/20/2024 5:51 PM EDT us Generic External Data Provider LAB BLOOD ORDERAB LES Final Result [facility] [address] [place] [phone] documented in this encounter Visit Diagnoses Not on filedocumented in this encounter Additional Health Concerns Assessment Noted Time PHQ-9 Depression Total Score: 3 04/23/19 25 11:02 AM EST documented as of this encounter Care Teams Audit Consultant Relationship Specialty Start Date End Date Lara Headley MD [address] [place] [phone] PCP - General Family Medicine 08/31/16 documented as of this encounter
--- OUTSIDE RECORDS SUMMARY | 2024-06-20 19:46 | XMS_ITS | Encounter Summary ---
Author Organization [employer] Address [address] [facility] [address]t [place] [address] Care Team Providers Care Escort Patients Name Role Phone Lara Headley MD Primary Care Provider + Encounter Details Date Type Department Care Team ([facility] st Contact Info) Description 06/19/2024 Patient Outreach [facility] [address] [place], [place] [phone] Lara Headley MD [address] [place] [address] Social History Tobacco Use Types Packs/Day Years [...] the past 12 months, has t he [employer], gas, oil or water company threatened to [...] documented as of this encounter Care Teams Escort Patients Relationship Specialty Start Date End Date Lara Headley MD [address] [place] [phone] PCP - General Family Medicine 08/31/16 documented as of this encounter
--- NOTE | 2024-06-20 19:56 | PC.NURSE ---
pt removed from recliner at this time and placed into stretcher. pt given towel to cover eyes at this time.
[2024-06-20 20:39] VITALS: BP 119/72; PULSE 75; RESP 14; O2SAT 98
--- NOTE | 2024-06-20 22:33 | PC.NURSE ---
pt refusing discharge at this time stating he is looking for mental health help, though pt is denying si/hi. this RN attempting to discharge pt, pt states he has no where to go and he needs to stay. this rn attempted to discharge pt a second time and pt states he is not going to sit in the waiting room. charge nurse at bedside to also attempt to discharge pt and pt states he is not leaving. security called to bedside. pt states he is going to check back in if we discharge him at this time. dr doyle aware and at bedside and states he is okay to discharge due to not being si/hi.
--- NOTE | 2024-06-20 22:40 | PC.NURSE ---
Upon attempt to D/C patient, Pt states I need a ride to [place], If not I am going to check back in and hurt myself . Dr. Vargas made aware. Security made aware. Pt refused to sign d/c papers.
[2024-06-20 22:46] VITALS: BP 119/72; PULSE 75; RESP 14; TEMP 36.9; O2SAT 98
--- NOTE | 2024-06-20 22:46 | PC.NURSE ---
pt walked out to waiting room to by security.
== END 2024-06-20 22:47 | disposition home or self-care (01) ==
PROVIDERS: Physician Assistant; Emergency Provider Emergency Medicine; PCP Internal Medicine
DX: F25.9 Schizoaffective disorder, unspecified (principal); F11.10 Opioid abuse, uncomplicated; F14.10 Cocaine abuse, uncomplicated; I45.10 Unspecified right bundle-branch block; I49.8 Other specified cardiac arrhythmias; R45.851 Suicidal ideations; Z79.899 Other long term (current) drug therapy
CPT/HCPCS: 36415; 80053; 80143; 80179; 80307; 85025; 93005; 96374; 96375; 99283; 99285

== ENCOUNTER → 2024-06-20 17:31 | Outpatient (BNV) | payer MEDICAID, SELFPAY | PROVIDERS: Emergency Provider Emergency Medicine; PCP Internal Medicine; Visit Provider Internal Medicine | DX: I49.9 Cardiac arrhythmia, unspecified (principal); I45.10 Unspecified right bundle-branch block | CPT/HCPCS: 93010 ==

== ENCOUNTER 2024-06-20 22:45 | Emergency (ER) | payer MEDICAID, SELFPAY ==
[2024-06-20 22:47] VITALS: BP 141/84; PULSE 70; RESP 18; TEMP 36.8; O2SAT 97; BMI 31.9
--- NOTE | 2024-06-20 23:05 | PC.NURSE ---
Pt in [address] upset, stating I'm going to get a gun a shoot up this place and preceded to trow a chair. Security called, [employer] called.
--- NOTE | 2024-06-20 23:08 | ED.GENADULT ---
HPI - General Adult General Chief complaint: Psychiatric Symptoms Stated complaint: crisis eval Time Seen by Provider: 06/20/24 22:58 History of Present Illness ED Provider: Dr. Vargas HPI narrative: Please see note from earlier today. At discharge patient said he would only leave if he could get a cab. Explained that cab cannot be provided at this time per the staff policy. Patient became agitated, checked himself back into the ER, and then began to make threats to staff. Police were called and patient was removed from the emergency department. Plan: Discharge to home Condition: Remains stable Related Data Home Medications ?Medication ?Instructions ?Recorded ?Confirmed clonazepam 0.5 mg tablet 0.5 mg PO DAILY PRN anxiety attack 06/02/24 06/02/24 quetiapine 100 mg tablet 100 mg PO BEDTIME PRN insomnia 06/02/24 06/03/24 hydroxyzine HCl 25 mg tablet 25 mg PO Q6H PRN mild pain 06/03/24 06/03/24 Previous Rx's ?Medication ?Instructions ?Recorded clonidine HCl 0.1 mg tablet See Rx Instructions .Route 05/04/24 .COMPLEX 30 days #90 tabs Allergies Allergy/AdvReac Type Severity Reaction Status Date / Time No Known Allergies Allergy Verified 06/20/24 22:48 [No Known Allergies*] Review of Systems Review of Systems: Yes all other systems are reviewed and are negative PMFSH Past Medical History Attestation statement: The following information was validated with the patient. Source: old records reviewed Medical History Tachycardia Elevated troponin Hypermagnesemia KATHYA (acute kidney injury) Schizoaffective disorder, depressive type Suicidal ideation Polysubstance abuse Opioid use disorder Polysubstance abuse NSTEMI (non-ST elevated myocardial infarction) PTSD (post-traumatic stress disorder) Cocaine use disorder Polysubstance use disorder Social History Social History Household Members: None Household Members Other:: dog, Melvin Housing: Apartment Do you presently have visiting nurse or other home services: No Unable to assess alcohol history related to: Unknown Alcohol intake: never Patient Tobacco Use Status: Never used Tobacco e-Cigarette/Vaping Use: Never Used Second Hand Smoke Exposure: No Substance Use Type: Heroin and IV Drugs Advance Directives: No Advance Directives Information Provided: No Do you have a plan to hurt others: No Plan service: No Sexual orientation: Straight/Heterosexual Physical Exam ED Vital Signs: Vital Signs - 24 hr 06/20/24 22:47 Temperature 98.2 F Pulse Rate 70 Respiratory Rate 18 Blood Pressure 141/84 H Pulse Oximetry 97 Oxygen Delivery Method Room Air BMI result Body Mass Index 31.9 Patient is afebrile and hemodynamically stable. Const General: no acute distress HENMT Head: Yes normal to inspection and Yes atraumatic Eyes General: appearance normal, both eyes and all related structures Pupils: Equal, round and reactive pupils present Neck Neck: Yes normal visual inspection, Yes supple and No tender Chest Chest palpation & inspection: normal inspection of the chest and normal palpation of entire chest wall Resp Effort & Inspection: normal respiratory effort, able to speak in complete sentences, no cough and no respiratory distress Auscultation: clear to auscultation bilaterally Cardio Rate: regular rate Rhythm: regular rhythm Peripheral pulses: Peripheral pulses 2+ throughout GI Inspection: Yes normal to inspection, No Abdominal wall edema and No distended Palpation (GI): Soft to palpation, not firm, nontender, no guarding and not rigid Auscultation: normal bowel sounds Neuro Cranial nerves: Yes Equal, round and reactive pupils present Discharge Plan Discharge Clinical Impression: Substance use disorder Patient Disposition: Home, Self-Care Prescriptions: No Action clonazepam 0.5 mg tablet 0.5 mg PO DAILY PRN (Reason: anxiety attack) quetiapine 100 mg tablet 100 mg PO BEDTIME PRN (Reason: insomnia) clonidine HCl 0.1 mg tablet See Rx Instructions .ROUTE .COMPLEX 30 Days Qty: 90 0RF Rx Instructions: take 1 tab in the morning and 1 at bedtime; may take 1 tab daily as needed for anxiety hydroxyzine HCl 25 mg tablet 25 mg PO Q6H PRN (Reason: mild pain) Print Language: Portuguese
[2024-06-20 23:09] VITALS: BP 00/00; PULSE 0; RESP 0; TEMP -17.7; TEMP 0
== END 2024-06-20 23:10 | disposition home or self-care (01) ==
PROVIDERS: Emergency Provider Emergency Medicine; PCP Internal Medicine
DX: F11.10 Opioid abuse, uncomplicated (principal); F19.10 Other psychoactive substance abuse, uncomplicated; Z79.899 Other long term (current) drug therapy
CPT/HCPCS: 99283

== ENCOUNTER 2024-08-29 19:08 | Emergency (ER) | payer MEDICAID, SELFPAY ==
--- NOTE | 2024-08-29 19:09 | ECG_ITS ---
Test Reason : acess qt interval Blood Pressure : */* mmHG Vent. Rate : 99 BPM Atrial Rate : 99 BPM P-R Int : 164 ms QRS Dur : 94 ms QT Int : 340 ms P-R-T Axes : 57 -1 32 degrees QTcB Int : 436 ms Poor data quality, interpretation may be adversely affected Normal sinus rhythm Anterior infarct , age undetermined Abnormal ECG When compared with ECG of 20-Jun-2024 17:37, Vent. rate has increased by 36 bpm Incomplete right bundle branch block is no longer Present Referred By: Trang Canales Electronically Signed By: GABY GROVER MD
--- NOTE | 2024-08-29 19:09 | ED.GENADULT ---
HPI - General Adult General Chief complaint: Psychiatric Symptoms Stated complaint: SI Time Seen by Provider: 08/29/24 20:16 Source: patient Mode of arrival: ambulatory Limitations: no limitations History of Present Illness ED Provider: HPI narrative: Patient's history of depression, schizoaffective disorder, bipolar disorder jobless with a history of cocaine use comes here for increased depression with suicidal ideation with a feeling of jumping over a bridge on his birthday which is today patient is noncompliant with medication for last few days also complaining of an abscess on the abdominal wall for last 7-10 days getting bigger no fever no chills Related Data Home Medications ?Medication ?Instructions ?Recorded ?Confirmed methadone 10 mg/5 mL oral solution 45 mg PO DAILY 08/30/24 08/30/24 clonidine HCl 0.1 mg tablet 0.1 mg PO DAILY PRN ADHD/Mood 08/31/24 08/31/24 diphenhydramine HCl 25 mg capsule 25 mg PO BEDTIME PRN Sleep/Itch 08/31/24 08/31/24 (Benadryl) ibuprofen 200 mg tablet 400 mg PO Q6H PRN Pain 08/31/24 08/31/24 melatonin 5 mg tablet 10 mg PO BEDTIME PRN insomnia 08/31/24 08/31/24 Allergies Allergy/AdvReac Type Severity Reaction Status Date / Time No Known Allergies (No Known Allergy Verified 08/29/24 19:13 Allergies*) Review of Systems Review of Systems: Yes all other systems are reviewed and are negative PMFSH Past Medical History Medical History Tachycardia Elevated troponin Hypermagnesemia KATHYA (acute kidney injury) Schizoaffective disorder, depressive type Suicidal ideation Polysubstance abuse Opioid use disorder Polysubstance abuse NSTEMI (non-ST elevated myocardial infarction) PTSD (post-traumatic stress disorder) Cocaine use disorder Polysubstance use disorder Social History Social History Household Members: None Household Members Other:: dog, Melvin Housing: Apartment Do you presently have visiting nurse or other home services: No Unable to assess alcohol history related to: Unknown Alcohol intake: former Patient Tobacco Use Status: Never used Tobacco Smoked in Last 30 Days: Yes e-Cigarette/Vaping Use: Never Used Second Hand Smoke Exposure: No Use of substances other than those prescribed or required for medical reasons: Yes Substance Use Type: Crack/Cocaine, Heroin, Marijuana, Opiates and Painkillers Substance Use Frequency: Chronic Longstanding Last Used Substance: Just Prior to Admission Any prior treatment program specific to substance use: Yes (methadone?, suboxone) Advance Directives: No Advance Directives Information Provided: Yes Do you have a plan to hurt others: No Plan service: No Sexual orientation: Straight/Heterosexual Physical Exam ED Vital Signs: Vital Signs - 24 hr 08/31/24 21:28 09/01/24 06:52 Temperature 98.4 F 97.6 F Pulse Rate 60 52 Respiratory Rate 16 18 Blood Pressure 142/74 H 115/66 Pulse Oximetry 97 99 Oxygen Delivery Method Room Air Room Air BMI result Body Mass Index 29.2 Appearance: Alert. Oriented X3. No acute distress. Eyes: PERRLA, No Nystagmus ENT: Pharynx normal. Oral Mucosa moist Neck: Normal inspection. Neck supple. CVS: Normal heart rate and rhythm. Pulses normal. Respiratory: No respiratory distress. Equal air entry bilateral, no wheezing/rales/rhonchi Abdomen: Soft and nontender. Bowel sounds are present, no mass palpable, no CVA tenderness Skin: Skin warm and dry. 4 x 4 cm anterior abdominal wall abscess with pus discharge Extremities: No lower extremity edema. No calf tenderness psych: Depressed feels suicidal no hallucination or delusion Neuro: Oriented X 3. No motor deficit. No sensory deficit.No cerebellar signs , cranial nerves II-XII intact Course Course Course Narrative: RME performed by Trang Canales PA-C. Patient is a 49 year old assigned male at presenting to the emergency department with suicidal ideation. Patient states that he is feeling suicidal with a plan to jump off a bridge or something on his birthday (today). Patient also has a right sided abdominal abscess. Detailed physical exam and review of systems are deferred to the commercial loan manager. EKG and labs ordered. Patient placed back in the waiting room pending room availability and results. Reevaluation(s) Reevaluation #1: 08/30/2024, 8;00 DR. Olmos's Progress note: VSS, agitation reported by nursing overnight require clonidine, bed search is underway, continue with physician observation. Time: 08:00 Reevaluation #2: Time: 09:15 Date: 08/31/24 Provider: Faisal Peraza MD Patient in physician observation for psychiatric evaluation.? No acute events reported overnight. No current complaints. VS stable.? Patient is in bed search status/pending CARE team evaluation. Will continue to monitor. Reevaluation #3: Time: 06:06 Date: 09/01/24 Provider: Jesus Campoverde MD Patient in physician observation for psychiatric evaluation.? Patient has been in the emergency department for 58 hours. No acute events reported overnight. No current complaints. VS stable.? Patient is in bed search status. Will continue to monitor. Time: 13:34 Date: 09/01/24 Provider: Jesus Campoverde MD Physician observation ended at 13:34. Patient has been accepted to [facility] for further psychiatric treatment. Patient will be transferred by ambulance. Accepting physician is Dr. Camacho Additional Reevaluation(s): 09/03/24 11:48am patient has had a wound culture that was positive for MRSA, who was appropriately treated with doxycycline, no change to follow up care Medications Administered Discontinued Medications Generic Name Dose Route Start Last Admin Trade Name Freq PRN Reason Stop Dose Admin Acetaminophen 975 mg 08/30/24 00:35 08/30/24 00:39 Acetaminophen 325 Mg Tablet PO 08/30/24 00:36 975 mg ONCE ONE Administration Acetaminophen 975 mg 08/31/24 01:21 08/31/24 01:25 Acetaminophen 325 Mg Tablet PO 08/31/24 01:22 975 mg ONCE ONE Administration Acetaminophen 650 mg 08/31/24 17:44 08/31/24 17:47 Acetaminophen 325 Mg Tablet PO 08/31/24 17:45 650 mg ONCE ONE Administration Clonidine HCl 0.1 mg 08/29/24 20:35 08/29/24 20:39 Clonidine Hcl 0.1 Mg Tablet PO 08/29/24 20:36 0.1 mg ONCE ONE Administration Protocol Clonidine HCl 0.2 mg 08/31/24 01:20 08/31/24 01:25 Clonidine Hcl 0.2 Mg Tablet PO 08/31/24 01:21 0.2 mg ONCE ONE Administration Protocol Diphenhydramine HCl 50 mg 08/29/24 21:40 08/29/24 22:24 Diphenhydramine Hcl 25 Mg Capsule PO 08/29/24 21:41 50 mg ONCE ONE Administration Diphenhydramine HCl 50 mg 08/31/24 21:45 08/31/24 22:18 Diphenhydramine Hcl 25 Mg Capsule PO 08/31/24 21:46 50 mg ONCE ONE Administration Doxycycline Monohydrate 100 mg 08/29/24 21:27 08/29/24 22:24 Doxycycline Monohydrate 100 Mg Capsule PO 08/29/24 21:28 100 mg ONCE ONE Administration Doxycycline Monohydrate 100 mg 08/30/24 09:00 09/01/24 08:25 Doxycycline Monohydrate 100 Mg Capsule PO 09/12/24 21:00 100 mg BID SHARIF Administration Lidocaine HCl 5 ml 08/29/24 21:27 08/29/24 21:49 Lidocaine Hcl 1 % Mpf 5 Ml Vial INFILTRATI 08/29/24 21:28 5 ml ONCE ONE Administration Lidocaine HCl 5 ml 08/29/24 21:42 08/29/24 22:03 Lidocaine Hcl 1 % Mpf 5 Ml Vial INFILTRATI 08/29/24 21:43 5 ml ONCE ONE Administration Lorazepam 2 mg 08/30/24 02:59 08/30/24 03:10 Lorazepam 1 Mg Tablet PO 08/30/24 03:00 2 mg ONCE ONE Administration Lorazepam 2 mg 08/30/24 07:24 08/30/24 07:59 Lorazepam 1 Mg Tablet PO 08/30/24 07:25 2 mg ONCE ONE Administration Melatonin 6 mg 08/29/24 21:40 08/29/24 22:24 Melatonin 3 Mg Tablet PO 08/29/24 21:41 6 mg ONCE ONE Administration Melatonin 6 mg 08/31/24 21:45 08/31/24 22:18 Melatonin 3 Mg Tablet PO 08/31/24 21:46 6 mg ONCE ONE Administration Methadone HCl 45 mg 08/30/24 09:00 09/01/24 08:24 Methadone Hcl 20 Mg/2 Ml Oral.Conc PO 45 mg DAILY SHARIF Administration Tramadol HCl 50 mg 08/29/24 22:41 08/29/24 22:45 Tramadol Hcl 50 Mg Tablet PO 08/29/24 22:42 50 mg ONCE ONE Administration Procedures Abscess I/D Site: abdomen Local Anesthetic: lidocaine 1% Amount of anesthesia used (mL): 5 Technique: incised with blade Amount of fluid expressed (mL): 5 Sent for culture/gram staining?: Yes Irrigation: Yes Packing used?: iodoform Medical Decision Making Medical Decision Making [facility] Narrative: Patient with schizoaffective disorder with bipolar type with increased depression suicidal feeling seen by care team plan for respite admission also patient had abscess of the abdominal which was incised and drained packing was applied which should be removed in 48 hours advised antibiotics 08/31/2024, 17:21, patient was evaluated by the care team. Recommendations, dual diagnosis, patient now on a Section 12. Lab Data [facility] Lab Attestation statement: I reviewed the patient's lab results. 08/29/24 19:31 08/29/24 19:31 Labs: Lab Results 08/29/24 08/29/24 Range/Units 19:31 23:28 WBC 5.9 (4.8-10.8) X10*3/uL RBC 4.28 L (4.60-5.80) X10*6/uL Hgb 11.5 L (14.0-18.0) g/dl Hct 34.6 L (42.0-52.0) % MCV 80.8 (80.0-98.0) fL MCH 26.9 L (27.0-33.0) pg MCHC 33.2 (31.0-36.0) g/dl RDW 14.2 (11.0-16.0) % Plt Count 297 (160-400) X10*3/uL MPV 8.3 L (9.4-12.4) fL Immature Gran % (Auto) 0.2 (0.0-0.4) % Neut % (Auto) 63.8 (45-73) % Lymph % (Auto) 24.5 (20-40) % [place] % (Auto) 9.6 (2-11) % Eos % (Auto) 1.4 (0-4) % Baso % (Auto) 0.5 (0-2) % Lymph # (Auto) 1.5 (1.2-4.9) X10*3/uL [place] # (Auto) 0.6 (0.1-1.2) X10*3/uL Eos # (Auto) 0.1 (0.0-0.4) X10*3/uL Baso # (Auto) 0.0 (0.0-0.2) X10*3/uL Abs Immat Gran (auto) 0.01 (0.00-0.03) X10*3/uL Absolute Neuts (auto) 3.8 (2.0-8.3) x10*3/uL Absolute Nucleated RBC 0.000 (0.0-0.012) X10*3/uL Nucleated RBC % (auto) 0.0 (0.0-0.2) /100WBC Sodium 144 (135-145) mmol/L Potassium 3.5 D (3.3-5.1) mmol/L Chloride 108 (96-108) mmol/L Carbon Dioxide 21 L (22-29) mmol/L Anion Gap 19 (12-20) BUN 22 H (9-16) mg/dL Creatinine 0.83 (0.5-1.4) mg/dL Estim Creat Clear Calc 93.0 Estimated GFR > 60 Random Glucose 96 (60-115) mg/dL Calcium 9.0 D (8.4-10.2) mg/dL Total Bilirubin 0.2 (0.0-1.0) mg/dL AST 37 (5-37) U/L ALT 22 (0-40) U/L Alkaline Phosphatase 81 (39-117) U/L Total Protein 7.4 (6.5-8.0) g/dL Albumin 4.3 (3.5-5.0) g/dL Urine Color Yellow Urine Appearance Clear Urine pH 6.0 (5.0-9.0) Ur Specific [place] 1.025 (1.005-1.025) Urine Protein Negative (Neg-Trace) mg/dL Urine Glucose (UA) Negative (Negative) mg/dL Urine Ketones Trace (Negative) mg/dL Urine Blood Negative (Negative) Urine Nitrite Negative (Negative) Ur Leukocyte Esterase Negative (Negative) Salicylates < 5.0 L (15-30) mg/dL Urine Opiates Screen POSITIVE H (Not Detect) Ur Buprenorphine Scrn Not Detected (Not Detect) ng/mL Ur Oxycodone Screen Not Detected (Not Detect) ng/mL Urine Methadone Screen Positive H (Not Detect) ng/mL Urine Fentanyl Screen POSITIVE H (Not Detect) Acetaminophen < 3 (<30) mcg/mL Ur Barbiturates Screen Not Detected (Not Detect) Ur Phencyclidine Scrn Not Detected (Not Detect) Ur Amphetamines Screen Not Detected (Not Detect) U Benzodiazepines Scrn Not Detected (Not Detect) Urine Cocaine Screen POSITIVE H (Not Detect) U Marijuana (THC) Screen POSITIVE H (Not Detect) Ethyl Alcohol < 10 mg/dL COVID-19 (KATI) Cancelled COVID-19 Clin Com Cancelled Influenza Type A (PCR) NEGATIVE (Negative) Influenza Type B (PCR) NEGATIVE (Negative) RSV RNA Qual (PCR) NEGATIVE (Negative) SARS-CoV-2 RNA (RT-PCR) NEGATIVE (Negative) Discharge Plan Discharge Clinical Impression: Cocaine use disorder, PTSD (post-traumatic stress disorder), Schizoaffective disorder, depressive type, Abdominal wall abscess, Substance use disorder Patient Disposition: Xfer Psychiatric Hosp Transfer Details: TO: [facility], [address] , [place], [place],[address], , [facility] ACCEPTING Prescriptions: No Action methadone 10 mg/5 mL Solution 45 mg PO DAILY clonidine HCl 0.1 mg tablet 0.1 mg PO DAILY PRN (Reason: ADHD/Mood) diphenhydramine HCl [Benadryl] 25 mg Capsule 25 mg PO BEDTIME PRN (Reason: Sleep/Itch) ibuprofen 200 mg Tablet 400 mg PO Q6H PRN (Reason: Pain) melatonin 5 mg tablet 10 mg PO BEDTIME PRN (Reason: insomnia) Referrals: Lara Headley MD [Primary Care Provider, Internal Medicine] Interventions: [place]-Suicide Risk Severity Scale Last Done: 09/01/24 10:00 Acute Care Transfer Worksheet (ED) Last Done: 09/01/24 13:32 Discharge Date/Time: 09/01/24 13:34 Print Language: Ukrainian
[2024-08-29 19:11] VITALS: BP 185/97; PULSE 134; RESP 18; TEMP 36.8; O2SAT 97; BMI 29.2
[2024-08-29 19:42] LABS: MANUAL DIFF FLAG NO
[2024-08-29 19:43] LABS: Hematocrit 34.6 % (42.0-52.0); Hemoglobin 11.5 g/dl (14.0-18.0); Imm Gran Abs Auto 0.01 X10*3/uL (0.00-0.03); Imm Gran Pct Auto 0.2 % (0.0-0.4); Lymphocytes Absolute Auto 1.5 X10*3/uL (1.2-4.9); Mean Corpuscular HGB Conc 33.2 g/dl (31.0-36.0); Mean Corpuscular Hemoglobin 26.9 pg (27.0-33.0); Mean Corpuscular Volume 80.8 fL (80.0-98.0); NRBC Abs Auto 0.000 X10*3/uL (0.0-0.012); NRBC Pct Auto 0.0 /100WBC (0.0-0.2); Platelet Count 297 X10*3/uL (160-400); Red Blood Count 4.28 X10*6/uL (4.60-5.80); White Blood Count 5.9 X10*3/uL (4.8-10.8)
--- NOTE | 2024-08-29 19:57 | MHC.EDTECH ---
TWO KNIVES LOCKED UP WITH SECURITY.
[2024-08-29 20:10] LABS: Acetaminophen LAB < 3 mcg/mL (<30); Alanine Aminotransferase 22 U/L (0-40); Albumin Level 4.3 g/dL (3.5-5.0); Alkaline Phosphatase 81 U/L (39-117); Anion Gap 19 (12-20); Aspartate Amino Transferase 37 U/L (5-37); Blood Urea Nitrogen 22 mg/dL (9-16); Calcium 9.0 mg/dL (8.4-10.2); Carbon Dioxide 21 mmol/L (22-29); Chloride 108 mmol/L (96-108); Creatinine Clr Calc Pharmacy 93.0; Estimated Glomerular Filt Rate > 60; Potassium 3.5 mmol/L (3.3-5.1); Salicylate < 5.0 mg/dL (15-30); Sodium 144 mmol/L (135-145); Total Protein 7.4 g/dL (6.5-8.0)
[2024-08-29 20:32] LABS: Resp Syncy Virus RNA Qual PCR NEGATIVE (Negative); SARS COV2 PCR INHOUSE NEGATIVE (Negative)
[2024-08-29 20:33] VITALS: BP 151/89; PULSE 96; RESP 18; TEMP 37; O2SAT 96
[2024-08-29 20:39] VITALS: BP 151/89
[2024-08-29] MEDS: Lidocaine HCl 1 % MPF 5 ML VIAL INFILTRATI ×2 (21:49→22:03)
--- NOTE | 2024-08-29 22:07 | MHC.CARE ---
Patient will be dual dx bedsearch. Section 12a placed in chart for safety.
[2024-08-29 23:39] LABS: Appearance Urine Clear; Glucose Urine UA Negative (Negative); PH 6.0 (5.0-9.0); Specific Gravity - Urine 1.025 (1.005-1.025)
[2024-08-29 23:45] LABS: Cannabinoid Screen Urine POSITIVE (Not Detect)
--- NOTE | 2024-08-29 23:58 | PC.NURSE ---
in the last 45-60 minutes patient seems more restless than prior to med administration
--- NOTE | 2024-08-30 01:28 | PC.NURSE ---
continues as restless (which seemed to start after tramadol administration) asked for more snacks.
[2024-08-30 03:07] VITALS: BP 157/87; PULSE 88; RESP 18; TEMP 36.7; O2SAT 98
--- NOTE | 2024-08-30 03:38 | PC.NURSE ---
pt continues to be restless, medicated w ativan 40 mins ago. during administration client informs me he attends mat clinic in [facility], t/w will relay to oncoming staff to facilitate confirmation of last dose.
--- NOTE | 2024-08-30 05:01 | PC.NURSE ---
considering restlessness of patient t/w went to clients room and asked to look a little closer at patient to be able to assess opiate wd, this music writer explained my presence and patient was obviously awake and remained stoic and covered up. if client changes mind t/w will go forward w approaching provider.
--- NOTE | 2024-08-30 06:19 | PC.NURSE ---
patient expressed displeasure at having to wait for methadone, shower, food etc, very poor coping exhibited
--- NOTE | 2024-08-30 06:40 | PC.NURSE ---
frequesntly kicking legs in bed
--- NOTE | 2024-08-30 07:07 | MHC.EDTECH ---
Patient initially agreeable to checking vital signs. While BP cuff was inflating patient because hostile, raised voice to this tech and stated take this the fuck off of me. This tech removed cuff, RN aware of patient refusal. Patient also requesting methadone at this time. RN aware of medication request.
--- NOTE | 2024-08-30 07:27 | PC.NURSE ---
Pt extremely restless, irritable, uncooperative with care; refusing vs measurement; scoring at least 16 on COWS (couldn't assess HR); aware; will treat per orders
--- NOTE | 2024-08-30 07:49 | HE.PHANOTE ---
Methadone verification Pharmacy has received the methadone verification form from EMILY Carter. Patient last received methadone 45 mg on 08/29 @ 0800 from [facility]. Information given by Calista at the clinic. Maritza Adler, DelilahD
[2024-08-30] MEDS: methADONE HCl 20 MG/2 ML ORAL.CONC 45 MG PO (08:01)
--- NOTE | 2024-08-30 08:15 | MHC.EDTECH ---
Patient requesting supplies for a shower. This tech attempted to explain that due to I&D of his abdominal abscess a shower may not be a good idea but that bed bath supplies could be provided. Patient ignored this tech and would not respond back if he would like the supplies. Patient currently resting in his room.
--- NOTE | 2024-08-30 08:15 | PC.NURSE ---
Pt refusing to let this RN look at wound on abdomen under dressing that was drained earlier; pt remains uncooperative with care
[2024-08-30 09:44] VITALS: PULSE 82
[2024-08-30 11:50] VITALS: PULSE 80
--- NOTE | 2024-08-30 12:07 | MHC.CARE ---
Pt was seen by CARE team and remains dual bed search.
[2024-08-30 14:00] VITALS: RESP 16
[2024-08-30 14:13] VITALS: PULSE 86
--- NOTE | 2024-08-30 14:15 | PC.NURSE ---
Pt resting quietly in room; declines lunch at this time; will cont to observe
--- NOTE | 2024-08-30 18:29 | PC.NURSE ---
Pt cooperative with care at this time; pt allowed vs to be measured and this RN able to remove and change abdominal dressing; site to R mid abdomen with packing intact; some sang. drainage on dressing but no active draining from site noted; pt tolerated well
--- NOTE | 2024-08-30 23:39 | PC.NURSE ---
Took over care from EMILY Best, pt sleeping at this time.
[2024-08-31 01:17] VITALS: BP 146/97; PULSE 80; RESP 18; TEMP 36.7; O2SAT 97
[2024-08-31 01:25] VITALS: BP 146/97
--- NOTE | 2024-08-31 01:28 | PC.NURSE ---
Medicated per mar,
--- NOTE | 2024-08-31 02:57 | PC.NURSE ---
[place] and Psychiatric assessment not completed due to pt sleeping,
[2024-08-31] MEDS: methADONE HCl 20 MG/2 ML ORAL.CONC 45 MG PO (08:02)
[2024-08-31 08:06] VITALS: BP 132/78; PULSE 55; RESP 18; TEMP 36.2; O2SAT 100
--- NOTE | 2024-08-31 11:34 | PC.NURSE ---
Wound to abdomen cleaned, new non stick dry dressing applied.
--- NOTE | 2024-08-31 12:28 | PHA.MEDREC ---
Addendum entered by Isaias Correa RPh 08/31/24 12:44: MED REC REVIEWED BY [facility] Original Note: Pharmacy Consult ? Medication Reconciliation Pharmacy has completed the medication reconciliation. Spoke with pt and he confirmed what he is taking at this time. Pt confirmed he still takes Clonidine 0.1mg tabs 1 tab as needed for ADHD or his mood.
--- NOTE | 2024-08-31 16:18 | PC.NURSE ---
Patient showered, dressing to abdomen changed
--- NOTE | 2024-08-31 19:28 | PC.NURSE ---
patient appears to remain at rest presently respirations are even and unlabored patient appears in no distress
[2024-08-31 21:28] VITALS: BP 142/74; PULSE 60; RESP 16; TEMP 36.9; O2SAT 97
[2024-09-01 06:52] VITALS: BP 115/66; PULSE 52; RESP 18; TEMP 36.4; O2SAT 99
--- NOTE | 2024-09-01 07:47 | PC.NURSE ---
Assumed care of patient at 0645, patient appears to be in no apparent distress this am, resting in bed, respirations even and unlabored. Continue plan of care for IPLOC
[2024-09-01] MEDS: methADONE HCl 20 MG/2 ML ORAL.CONC 45 MG PO (08:24)
--- NOTE | 2024-09-01 10:38 | MHC.CARE ---
Pt was accepted to [facility]. ETA is 2pm. Address is [address] [id number]. Camacho is the accepting provider. CARE team and pod RN notified of acceptance.
--- NOTE | 2024-09-01 10:41 | PC.NURSE ---
This Rn changed patient's abdominal wound dressing, scant amount of serosanguinous drainage noted on bandage, packing still in place. No infectious process visualized at this time, pt denies pain to site.
[2024-09-01 13:32] VITALS: BP 112/87; PULSE 84; RESP 14; TEMP 37.2; O2SAT 99
== END 2024-09-01 13:34 ==
PROVIDERS: Internal Medicine; Physician Assistant Medical; Emergency Provider Emergency Medicine Emergency Medical Services; PCP Internal Medicine
DX: F14.10 Cocaine abuse, uncomplicated (principal); F43.10 Post-traumatic stress disorder, unspecified; F25.1 Schizoaffective disorder, depressive type; R45.1 Restlessness and agitation; R45.851 Suicidal ideations; L02.211 Cutaneous abscess of abdominal wall; B95.62 Methicillin resistant Staphylococcus aureus infection as the cause of diseases classified elsewhere; F11.20 Opioid dependence, uncomplicated; Z91.148 Patient's other noncompliance with medication regimen for other reason
CPT/HCPCS: 10060; 80053; 80143; 80179; 80307; 81003; 85025; 87070; 87077; 87186; 87205; 87637; 93005; 99285; J2003; S9485

== ENCOUNTER → 2024-08-29 19:09 | Outpatient (BNV) | payer MEDICAID, SELFPAY | PROVIDERS: Emergency Provider Internal Medicine; PCP Internal Medicine; Visit Provider Internal Medicine Cardiovascular Disease | DX: R94.31 Abnormal electrocardiogram [ECG] [EKG] (principal); Z13.6 Encounter for screening for cardiovascular disorders | CPT/HCPCS: 93010 ==

== ENCOUNTER 2024-09-15 09:48 | Outpatient (RCR) | payer MEDICAID, SELFPAY | END 2024-09-15 16:43 | disposition home or self-care (01) | LOC: HO.WCC 09:48 | PROVIDERS: PCP Internal Medicine; Visit Provider Surgery Surgical Oncology | DX: L98.492 Non-pressure chronic ulcer of skin of other sites with fat layer exposed (principal); L02.211 Cutaneous abscess of abdominal wall; I10 Essential (primary) hypertension; G62.9 Polyneuropathy, unspecified; F25.1 Schizoaffective disorder, depressive type; F19.14 Other psychoactive substance abuse with psychoactive substance-induced mood disorder; F11.90 Opioid use, unspecified, uncomplicated; F14.90 Cocaine use, unspecified, uncomplicated | CPT/HCPCS: 99213 ==

== ENCOUNTER 2024-10-02 11:24 | Outpatient (REF) | payer MEDICAID, SELFPAY ==
--- OUTSIDE RECORDS SUMMARY | 2024-10-02 11:27 | XMS_ITS | Encounter Summary ---
Author Organization [email or web address] Address [address] [place] [address] Care Team Providers Care Plastics Worker Name Role Phone Lara Headley MD Primary Care Provider + Rocky McmillanW Unavailable [phone] Reason for Visit * Reason Comments Med Refill Encounter Details Date Type Department Care Team (Late st Contact Info) Description 08/18/2024 Refill [facility] ADULT DENTAL [address] [place] [address] Armand Prieto DDS [address] [place] [address] Dental caries; Fractured dental yazidism without loss of material Social History Tobacco Use Types Packs/Day Years [...] encounter Miscellaneous Notes * Telephone Encounter - Armand Prieto DDS - 08/18/2024 1:40 PM EDT Approving, but needs appt for additional refills. documented in this encounter Plan of Treatment Upcoming Encounters Date Type Department Care Team (Late st Contact Info) Description 10/02/2024 2:45 PM EDT Office Visit [facility] MEDICINE [address] [place] [address] Irene Griffith CNP [address] [place] [address] 10/30/2024 3:00 PM EDT Office Visit [facility] ADULT DENTAL [address] [place] [address] Armand Prieto DDS [address], [place] [phone] documented as of this encounter Goals Goal Patient Goal Type Associated Problems Recent Progress Patient-Stated? Author Take buprenorphine as prescribed General Yes Chanel Thrasher, RN Keep your medical appointments Lifestyle No Richard Woods, EMILY documented as of this encounter Visit Diagnoses Diagnosis Dental caries Unspecified dental caries Fractured dental yazidism without loss of material Fractured dental restorative material without loss of material documented in this encounter Additional Health Concerns Assessment Noted Time PHQ-9 Depression Total Score: 3 04/23/19 25 11:02 AM EST documented as of this encounter Care Teams Plastics Worker Relationship Specialty Start Date End Date Lara Headley MD [address] [place] [address] PCP - General Family Medicine 08/31/16 Rocky Mcmillan LCSW School Secretary Behavioral Health 09/03/24 09/03/24 documented as of this encounter
[2024-10-02 13:50] LABS: Hemoglobin A1C 106.1210 umol/L; Total Hemoglobin (HGBA1C) 3115.6310 umol/L
[2024-10-02 14:05] LABS: Cholesterol 154 mg/dL (<200); HDL Cholesterol 61 mg/dL (>40); Triglycerides 130 mg/dL (<150)
[2024-10-05 14:13] LABS: TS Negative Control Passed; TS Panel A 1; TS Panel B 0; TS Positive Control Passed; TSpotTB Negative (Negative)
== END 2024-10-02 11:25 | disposition home or self-care (01) ==
LOC: HO.HHCL 11:24
PROVIDERS: PCP Internal Medicine; Visit Provider Nurse Practitioner
DX: Z11.1 Encounter for screening for respiratory tuberculosis (principal); Z00.00 Encounter for general adult medical examination without abnormal findings; E66.811 Obesity, class 1; Z68.32 Body mass index [BMI] 32.0-32.9, adult; E55.9 Vitamin D deficiency, unspecified
CPT/HCPCS: 36415; 80061; 82306; 83036; 86481